=== PATIENT | male | born 1940 | race Caucasian/White ===

== ENCOUNTER 2024-08-07 12:13 | Outpatient (AMB) | payer OTHER, SELFPAY ==
--- OUTSIDE RECORDS SUMMARY | 2024-08-07 12:16 | XMS_ITS | Encounter Summary ---
Author Name [facility] ([place]) Organization [facility] [place]) Address [address] [place] [address] Care Team Providers Care Boat Carpenter Name Role Phone LENORA DEJESUS Primary Care Provider Unavailab le Insurance Providers: All historical and current Section Date Range: From patient's date of to the date document was created. This section includes the names of all active insurance providers for the patient. Insurance Provider Type of Coverage Plan Name Start of Policy Coverage End of Policy Coverage Group Number Member ID Insurance Provider's Telephone Number Policy Welsh's Name Patient's Relationship to Policy Welsh [facility] MEDICARE SUPPLEMEN [place] IND Jul 31, 2014 MEDICAR E SUPPLEM E [id number] [phone] FR GAMALIEL KAY PATIENT [facility] MEDICARE SUPPLEMEN [place] MEDIC ARE SUPP Jul 31, 2014 SUPP [id number] [phone] FR GAMALIEL KAY PATIENT MEDICARE (WNR) MEDICARE (M) PART A Jan 29, 2004 PART A [id number] [phone] FR GAMALIEL KAY PATIENT MEDICARE (WNR) MEDICARE (M) PART B Jan 29, 2004 PART B [id number] [phone] FR GAMALIEL KAY PATIENT [facility] (WNR) MEDICARE ADVANTAGE [facility] ([facility]) Jul 31, 2023 [id number] GAMALIEL MACHADO PATIENT [facility] (WNR) MEDICARE ADVANTAGE MCR (WNR) Jul 31, 2023 [id number] [phone] FR GAMALIEL KAY PATIENT Selected Encounter This section includes the information on record at MD for the Encounter. Date/Time Encounter Type Encounter Description Reason Pro vider Source Oct 24, 2023 03:45 PM Outpatient Encounter EVENT (HISTORICAL) IHE Encounter Template Text not used by MD Plan of Treatment: Future Appointments (+ 6 months) and Future Tests (+/- 45 days) The Plan of Treatment section includes future care activities for the patient from all MD treatmentfacilities. This section includes future appointments and future orders which are active, pending or scheduled. Future Appointments This section includes appointments that were scheduled to occur 6 months from the date of the Encounter, up to a maximum of 20 appointments. The data comes from all MD treatment facilities. Appointment Date/Time Appointment Type Appointme nt Facility Name Oct 26, 2023 01:30 PM AMBULATORY - NEUROLOGY [facility] [place] [facility] Nov 13, 2023 01:00 PM AMBULATORY - MEDICINE MD [facility] [place] [facility] December 11, 2023 10:30 AM AMBULATORY - MEDICINE MD [facility] [place] [facility] December 20, 2023 09:00 AM AMBULATORY - MEDICINE MD [facility] [place] [facility] December 20, 2023 02:00 PM AMBULATORY - MEDICINE [facility] ([facility]) Jan 08, 2024 10:30 AM AMBULATORY - MEDICINE MD [facility] [place] [facility] Jan 11, 2024 01:00 PM AMBULATORY - MEDICINE MD [facility] [place] [facility] Jan 30, 2024 01:00 PM AMBULATORY - MEDICINE MD [facility] [place] [facility] Mar 27, 2024 01:00 PM AMBULATORY - MEDICINE [facility] ([facility]) Apr 04, 2024 08:00 AM AMBULATORY - MEDICINE MD [facility] [place] [facility] Active, Pending, and Scheduled Orders This section includes a listing of several types of active, pending, and scheduled orders, including clinic medications orders, diagnostic test orders, procedure orders and consult orders; where the start date of the order is 45 days before the date of the Encounter or 45 days after the date of theEncounter. The data comes from all MD treatment facilities. Test Date/Time Test Type Test Details Facility Name 2023 01:37 PM Consult Order COMMUNITY CARE-NEUROLOGY Cons Parachute Repairer's Choice [facility] Radiology Reports: +/- 30 days of the encounter Radiology Reports For cases when an order for radiology services may have been completed prior to the date of the Encounter, the report list includes the Radiology Reports that were completed up to 30 days before dateof the Encounter. For cases when an order for radiology services may have been completed after the date of the Encounter, the report list also includes the Radiology Reports that were completed up to30 days after date of the Encounter. The data comes from all MD treatment facilities. Date/Time Radiology Report Provider Source Oct 11, 2023 12:[address] LUMBAR SPINE W/O CONT: MUKUL KAY [id number] -1940 M Exm Date: OCT 11, 2023@12:58 Req Phys: LENORA DEJESUS Pat Loc: CWM/GO/PACT 1 WH (Req'g Loc) Img Loc: NHM/CT Service: Unknown (Case [id number] COMPLETE) CT LUMBAR SPINE W/O CONT (CT Detailed) CPT:81821 Reason for Study: back pain Clinical History: radiating left leg Report Status: Verified Date Reported: OCT 12, 2023 Date Verified: OCT 12, 2023 Recreation Therapy Director E-Sig: Report: CT LUMBAR SPINE W/O CONT HISTORY: back pain COMPARISON: None TECHNIQUE: CT of the lumbar spine performed without contrast. Images were received by the MD National Teleradiology Program (NTP) for interpretation. RADIATION DOSE (mGy*cm): 1283.4 IV CONTRAST: Not administered. FINDINGS: There is diffuse osseous demineralization. There are 5 lumbar vertebra. 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 Mild to moderate levocurvature of the lumbar spine. Mild dextrocurvature at the thoracolumbar junction. There is a 1 cm left lateral listhesis of L3 with respect to L2. There is 1 mm retrolisthesis of L4 on L5. There is straightening of the lumbar lordosis. Mild probably chronic anterior compression deformity of T12. No evident acute displaced fracture. There are multilevel degenerative changes of the lumbar spine characterized by disc height loss, osteophytosis, degenerative endplate irregularity, disc bulge, and facet joint hypertrophy. Mild osseous spinal canal stenosis at L2-3. Mild osseous spinal canal stenosis at L3-4. A combination of osseous and soft tissue degenerative change probably results in severe spinal canal stenosis at L4-5. There is multilevel osseous neural foraminal stenosis which is most conspicuous at the right L3-4 and L4-5 where it is severe. Mild to moderate degenerative change of the sacroiliac joints. Unremarkable CT appearance of the paraspinal musculature. There are atherosclerotic vascular calcifications. There is colonic diverticulosis. Impression: 1. 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 This could be more definitively characterized with MRI. 2. Mild anterior compression deformity of T12, probably chronic. Correlate clinically. READING PHYSICIAN: Mir Nuñez -[id number] 10/12/2023 10:03 [facility] National Teleradiology Program [phone] (For Medical Practitioner Use Only) Attention Patients / Veterans: If you have questions or concerns about these test results, please contact your ordering provider or primary care team. Primary Diagnostic Code: SIGNIFICANT ABNORMALITY, ATTN NEEDED Primary Interpreting Staff: RADIOLOGY,OUTSIDE SERVICE, Staff Physician / RADIOLOGY,OUTSIDE SERVICE [facility]
--- OUTSIDE RECORDS SUMMARY | 2024-08-07 12:16 | XMS_ITS | Encounter Summary ---
Author Name [facility] Organization [facility] [place] Address [address] [place] [address] Care Team Providers Care Pulmonary Function Technician Name Role Phone LENORA DEJESUS Primary Care [...] Jul 31, 2014 MEDICAR E SUPPLEM E [id number] [phone] FR GAMALIEL KAY PATIENT [facility] MEDICARE SUPPLEMEN [place] MEDIC ARE SUPP Jul 31, 2014 SUPP [id number] [phone] FR GAMALIEL KAY PATIENT MEDICARE (WNR) MEDICARE (M) PART A Jan 29, 2004 PART A [id number] [phone] FR GAMALIEL KAY PATIENT MEDICARE (WNR) MEDICARE (M) PART B Jan 29, 2004 PART B [id number] [phone] FR GAMALIEL KAY PATIENT [facility] (WNR) MEDICARE ADVANTAGE [facility] ([facility]) Jul 31, 2023 [id number] [phone] FR GAMALIEL KAY PATIENT [facility] MCR (WNR) MEDICARE ADVANTAGE MCR (WNR) Jul 31, 2023 [id number] [phone] FR GAMALIEL KAY PATIENT Selected Encounter This section includes the information on record at [place] for the Encounter. Date/Time Encounter Type Encounter Description Reason Pro vider Source Aug 17, 2023 10:56 AM Outpatient Encounter ADMIN PAT ACTIVTIES (MASNONCT) IHE Encounter Template Text not used by [place] Plan of Treatment: Future Appointments (+ 6 months) and Future Tests (+/- 45 days) The Plan of Treatment section includes future care activities for the patient from all [place] treatmentfaunc healthities. This section includes future appointments and future orders which are active, pending or scheduled. Future Appointments This section includes appointments that were scheduled to occur 6 months from the date of the Encounter, up to a maximum of 20 appointments. The data comes from all [place] treatment facilities. Appointment Date/Time Appointment Type Appointme nt Facility Name Sep 19, 2023 01:30 PM AMBULATORY - MEDICINE [place] [facility] Sep 22, 2023 01:00 PM AMBULATORY - MEDICINE [facility] ([facility] Oct 03, 2023 11:30 AM AMBULATORY - MEDICINE [place] [facility] Oct 06, 2023 03:00 PM AMBULATORY - PSYCHIATRY [place] [facility] [place] Oct 10, 2023 02:00 PM AMBULATORY - MEDICINE [facility] ([facility]) Oct 11, 2023 01:00 PM AMBULATORY - NONE [place] [facility] [place] [facility] Oct 16, 2023 02:00 PM AMBULATORY - MEDICINE [place] [facility] Oct 24, 2023 11:30 AM AMBULATORY - MEDICINE [facility] Oct 26, 2023 01:30 PM AMBULATORY - NEUROLOGY [facility] Nov 13, 2023 01:00 PM AMBULATORY - MEDICINE [facility] December 11, 2023 10:30 AM AMBULATORY - MEDICINE [place] [facility] [place] [facility] December 20, 2023 09:00 AM AMBULATORY - MEDICINE [place] [facility] [place] [facility] December 20, 2023 02:00 PM AMBULATORY - MEDICINE [facility] ([facility]) Jan 08, 2024 10:30 AM AMBULATORY - MEDICINE [place] [facility] Jan 11, 2024 01:00 PM AMBULATORY - MEDICINE [place] [facility] Jan 30, 2024 01:00 PM [facility]UL[facility] Lab Results: +/- 30 days of the encounter This section includes the Chemistry and Hematology Lab Results on record with [place] for the patient. Radiology Reports and Pathology Reports are provided separately, in subsequent sections. Lab Results This section contains the Chemistry/Hematology Results that were resulted 30 days before or 30 daysafter the date of the Encounter. Date/Time Source Result Type Result - Unit Interpretation Reference Range Comment Sep 13, 2023 01:18 PM [place] ([facility]) VITAMIN B12 Specimen Type: SERUM No comment entered. Ordering Provider: FLYNN DEJESUS Report Released Date/Time: Sep 08, 2023 04:05 PM Reporting [facility] [address] Performing [facility]: [facility] [address] [address] VITAMIN B12 359 pg/mL 200-900 Sep 13, 2023 01:18 PM [place] ([facility]) VITAMIN D (25-OH) Specimen Type: SERUM No comment entered. Ordering Provider: FLYNN DEJESUS Report Released Date/Time: Sep 08, 2023 04:05 PM Reporting Lab[facility] [address] Performing Lab: [facility] [address] VITAMIN D (25-OH) 39 ng/mL 20-50 Sep 13, 2023 01:18 PM [place] ([facility]) MICROALBUMIN CREATININE RATIO PANEL Specimen Type: URINE No comment entered. Ordering Provider: FLYNN DEJESUS Report Released Date/Time: Sep 08, 2023 04:05 PM Reporting [facility] [address] [address] Performing Lab: [address] [address] MICROALBUMIN/C REATININE RATIO 16.2 mg/g 0-29.9 MICROALBUMIN,Q UANTITATIVE 2.8 mg/dL RR UNAVAIL CREATININE URINE 172.87 mg/dL Sep 13, 2023 01:18 PM [facility] ([facility]) URINALYSIS Specimen Type: URINE Comment: If Glucose = >500 and Ketones are positive, please alert the Physician. Ordering Provider: FLYNN DEJESUS Report Released Date/Time: Sep 08, 2023 04:05 PM Reporting Lab: [address] [address] Performing Lab: [address] [address] UA COLOR Yellow Yellow UA APPEARANCE Clear Clear UA GLUCOSE NEGATIVE mg/dL Negative UA KETONES NEGATIVE mg/dL Negative UA BLOOD NEGATIVE mg/dL Negative UA PROTEIN 20 mg/dL Negative UA NITRITE NEGATIVE mg/dL Negative UA BILIRUBIN NEGATIVE mg/dL Negative UA SPECIFIC GRAVITY 1.027 H 1.016-1.022 UA pH 5.5 5.0-9.0 UA UROBILINOGEN <2.0 mg/dL <2.0 UA LEUKOCYTE NEGATIVE Negative Sep 13, 2023 01:18 PM [place] ([facility]) HEMOGLOBIN A1C PANEL Specimen Type: BLOOD Comment: Values obtained from A1C measurements can vary. For atypical A1C assays, a reported value of 7.0 could actually be between 6.72 and 7.28 if measured by a reference method. A reported value of 9.0 could actually be between 8.73 and 9.27. Ref: http://www.ngs p.org/CAPdata. asp Ordering Provider: FLYNN DEJESUS Report Released Date/Time: Sep 08, 2023 04:05 PM Reporting Lab: [address] [address] Performing Lab: [address] [address] HEMOGLOBIN A1C 6.6 H 4.0-5.6 Sep 13, 2023 01:18 PM [place] ([facility]) TSH Specimen Type: SERUM No comment entered. Ordering Provider: FLYNN DEJESUS Report Released Date/Time: Sep 08, 2023 04:05 PM Reporting Lab: [address] [address] Performing Lab: [address] [address] TSH 1.81 u[IU]/mL 0.35-5.00 Sep 13, 2023 01:18 PM [place] ([facility]) LIVER FUNCTION Specimen Type: SERUM No comment entered. Ordering Provider: FLYNN DEJESUS Report Released Date/Time: Sep 08, 2023 04:05 PM Reporting Lab: [address] [address] Performing Lab: [address] [address] PROTEIN,TOTAL 7.1 g/dL 6.0-8.3 ALBUMIN 3.8 g/dL 3.5-5.0 ALKALINE PHOSPHATASE 82 U/L 40-150 AST 16 U/L 5-34 ALT 6 U/L BILIRUBIN, TOTAL 0.8 mg/dL 0.2-1.2 Sep 13, 2023 01:18 PM [place] ([facility]) BASIC METABOLIC PANEL (non-fasting) Specimen Type: SERUM No comment entered. Ordering Provider: FLYNN DEJESUS Report Released Date/Time: Sep 08, 2023 04:05 PM Reporting Lab: [address] [address] Performing Lab: [address] [address] UREA NITROGEN 23 mg/dL 7-25 GLUCOSE 120 mg/dL H 65-100 SODIUM 138 mmol/L 135-145 POTASSIUM 3.9 mmol/L 3.5-5.0 CHLORIDE 104 mmol/L 100-110 CO2 25 meq/L 20-30 CREATININE, Serum 1.15 mg/dL 0.50-1.40 eGFR(CKD-EPI 2020) 64 mL/min >60 Sep 13, 2023 01:18 PM [place] ([facility]) LIPID PANEL, NON FASTING Specimen Type: SERUM No comment entered. Ordering Provider: FLYNN DEJESUS Report Released Date/Time: Sep 08, 2023 04:05 PM Reporting Lab: [address] [address] Performing Lab: [address] [address] CHOLESTEROL 181 mg/dL TRIGLYCERIDE 142 mg/dL 0-150 LDL calculated 113 mg/dL 0-129 CHOL/HDL 4.5 HDL CHOLESTEROL 40 mg/dL 40-60 Sep 13, 2023 01:18 PM [place] ([facility]) CBC AND DIFF (AUTO) Specimen Type: BLOOD No comment entered. Ordering Provider: FLYNN DEJESUS Report Released Date/Time: Sep 08, 2023 04:05 PM Reporting Lab: [address] [address] Performing Lab: [address] [address] WBC 8.48 10*3/uL 4.50-11.00 RBC 5.71 10*6/uL H 4.23-5.66 HGB 16.6 g/dL 12.8-17 HCT 49.8 39.2-50.4 MCV 87.2 fL 82-99 MCHC 33.3 g/dL 30.8-35.1 PLT 242 10*3/uL 140-360 RDW-CV 13.7 12.0-16.0 [place], Abs 0.73 10*3/uL 0.30-1.10 MCH 29.1 pg 26.2-32.6 Neut % 71.1 43.7-75.8 Lymph % 18.8 14.0-42.3 [place] % 8.6 5.1-13.7 Eos % 0.6 0.4-6.8 Baso % 0.7 0.1-2.0 Neut, Abs 6.03 10*3/uL 2.20-7.60 Lymph, Abs 1.59 10*3/uL 1.00-3.20 Eos, Abs 0.05 10*3/uL 0.03-0.44 Baso, Abs 0.06 10*3/uL 0.01-0.13 Immature Gran % 0.2 0.0-0.7 Immature Gran, Abs 0.02 10*3/uL 0.00-0.06 Encounter Notes: All associated encounter notes This section contains the clinical notes associated to the Encounter. Date/Time Encounter Note(s) Provider Source Aug 17, 2023 10:56 AM ADMINISTRATIVE NOTE: LOCAL TITLE: CCC: SCHEDULING ADMINISTRATION STANDARD TITLE: ADMINISTRATIVE NOTE DATE OF NOTE: AUG 17, 2023@10:56:28 ENTRY DATE: AUG 17, 2023@10:56:28 AUTHOR: TONE DON COSIGNER: URGENCY: STATUS: COMPLETED Patient Demographics Patient Name: MUKUL KAY Patient Primary Phone: [phone] Patient Primary Address: [address] [place] [address] Patient : 1940 Patient Age: 82 Call Back Number: [phone] Caller/Recipient Relation to Patient: Self Administrative Administrative Note Reason: Medication Renewal Medications Refill/Renewal Request: Rx # - Medication Name - Dosage - SIG - Number of Refills - Facility - Status [id number] - APIXABAN 5MG TAB - Medication - 1 TABLET - TAKE ONE TABLET BY MOUTH TWICE DAILY - 0 - [facility] - 631 - /kasia/ TONE DON VISN 1 [facility] AMSA Signed: 08/17/2023 10:56 Receipt Acknowledged By: 08/17/2023 11:09 /es/ TODD DANIELS RN REGISTERED NURSE 08/18/2023 09:11 /es/ LENORA DEJESUS MD PHYSICIAN TONE DON [facility]
--- OUTSIDE RECORDS SUMMARY | 2024-08-07 12:16 | XMS_ITS | Encounter Summary ---
Author Name [facility] [place] [facility] [place] [facility] [place] Address [address] [place] [address] Care Team Providers Care Technical Instructor Name Role Phone LENORA DEJESUS Primary Care [...] Jul 31, 2014 MEDICAR E SUPPLEM E [id number] FR GAMALIEL KAY PATIENT [facility] MEDICARE SUPPLEMEN [place] MEDIC ARE SUPP Jul 31, 2014 SUPP [id number] [phone] FR GAMALIEL KAY PATIENT MEDICARE (WNR) MEDICARE (M) PART A Jan 29, 2004 PART A [id number] [phone] FR GAMALIEL KAY PATIENT MEDICARE (WNR) MEDICARE (M) PART B Jan 29, 2004 PART B [id number] [phone] FR GAMALIEL KAY PATIENT [facility] (WNR) MEDICARE ADVANTAGE [facility] ([facility]) Jul 31, 2023 [id number] [phone] FR GAMALIEL KAY PATIENT [facility] MCR (WNR) MEDICARE ADVANTAGE MCR (WNR) Jul 31, 2023 [id number] [phone] FR GAMALIEL KAY PATIENT Selected Encounter This section includes the information on record at [place] for the Encounter. Date/Time Encounter Type Encounter Description Reason Provider Source Oct 26, 2023 01:30 PM OFFICE O/P EST MOD 30 MIN NEUROLOGY ICD-10-CM G20.B1 Parkinson's dis with dyskinesia, 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 fluctuations CHANDRIKA LIN [facility] Encounter Template Text not used by [place] Assessments - Encounter Diagnoses This section includes the primary and secondary diagnoses documented for the Encounter. Date/Time Primary/Secondary Diagnosis Diagnosis Name Provider Source 2023 01:30 PM PRIMARY Parkinson's dis with dyskinesia, 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 fluctuations CHANDRIKA LIN [facility] [place] [facility] Plan of Treatment: Future Appointments (+ 6 months) and Future Tests (+/- 45 days) The Plan of Treatment section includes future care activities for the patient from all [place] [facility]. This section includes future appointments and future orders which are active, pending or scheduled. Future Appointments This section includes appointments that were scheduled to occur 6 months from the date of the Encounter, up to a maximum of 20 appointments. The data comes from all [place] treatment facilities. Appointment Date/Time Appointment Type Appointme nt Facility Name Nov 13, 2023 01:00 PM AMBULATORY - MEDICINE [facility] [place] [facility] December 11, 2023 10:30 AM [place] [place]ICINE [place] [facility] [place] [facility] December 20, 2023 09:00 AM [place] [facility] [place] [facility] December 20, 2023 02:00 PM AMBULATORY - MEDICINE [facility] Jan 08, 2024 10:30 AM [place]INE [place] [facility] [place] [facility] Jan 11, 2024 01:00 PM [place] [facility] [place] [facility] Jan 30, 2024 01:00 PM AMBULATORY - MEDICINE [facility] [place] [facility] Mar 27, 2024 01:00 PM AMBULATORY - MEDICINE [facility] ([facility]) Apr 04, 2024 08:00 AM AMBULATORY - MEDICINE [facility] [place] [facility] Active, Pending, and Scheduled Orders This section includes a listing of several types of active, pending, and scheduled orders, including clinic medications orders, diagnostic test orders, procedure orders and consult orders; where the start date of the order is 45 days before the date of the Encounter or 45 days after the date of theEncounter. The data comes from all [place] treatment facilities. Test Date/Time Test Type Test Details Facility Name 2023 01:37 PM Consult Order COMMUNITY CARE-NEUROLOGY Cons Pediatric Psychologist's Choice [facility] [place] [facility] Vital Signs: All taken on the encounter date This section contains inpatient and outpatient Vital Signs collected on the date of the Encounter. Date/Time Temperature Pulse Blood Pressure Respiratory Rate SP02 Pain Height Weight Body Mass Index Source Oct 26, 2023 03:04 PM 98 92 100/70 18 97 1 [facility] [place] [facility] Radiology Reports: +/- 30 days of the [...] the Encounter. The data comes from all [place] treatment facilities. Date/Time Radiology Report Provider Source Oct 11, 2023 12:[address] LUMBAR SPINE W/O CONT: MUKUL KAY MIKE [id number] -[id number] M Exm Date: OCT 11, 2023@12:58 Req Phys: LENORA DEJESUS Pat Loc: C[facility]/GO/PACT 1 WH (Req'g Loc) Img Loc: NHM/CT Service: Unknown (Case [id number] COMPLETE) CT LUMBAR SPINE W/O CONT (CT Detailed) CPT:45265 Reason for Study: back pain Clinical History: radiating left leg Report Status: Verified Date Reported: OCT 12, 2023 Date Verified: OCT 12, 2023 Eye Technician E-Sig: Report: CT LUMBAR SPINE W/O CONT HISTORY: back pain COMPARISON: None TECHNIQUE: CT of the lumbar spine performed without contrast. Images were received by the [place] [facility] ([facility]) for interpretation. RADIATION [...] chronic. Correlate clinically. READING PHYSICIAN: Mir Nuñez -[phone] 10/12/2023 10:03 PDT [facility] National Teleradiology Program [phone] (For Medical Practitioner Use Only) Attention Patients / Veterans: If you have questions or concerns about these test results, please contact your ordering provider or primary care team. Primary Diagnostic Code: SIGNIFICANT ABNORMALITY, ATTN NEEDED Primary Interpreting Staff: RADIOLOGY,OUTSIDE SERVICE, Staff Physician / RADIOLOGY,OUTSIDE SERVICE [place] [facility] [place] [facility] Encounter Notes: All associated encounter notes This section contains the clinical notes associated to the Encounter. Date/Time Encounter Note(s) Provider Source Oct 26, 2023 02:04 PM NEUROLOGY OUTPATIE NT NOTE: LOCAL TITLE: NEUROLOGY CLINIC NOTE STANDARD TITLE: NEUROLOGY OUTPATIENT NOTE DATE OF NOTE: OCT 26, 2023@14:04 ENTRY DATE: OCT 26, 2023@14:04:24 AUTHOR: CHANRDIKA LIN COSIGNER: URGENCY: STATUS: COMPLETED Chief Complaint: Parkinsons disease Interval Hx Sep Pt is accompanied by son. They give generally congruent hx. Pt reports that he continues to experience some tremors, though they are generally well-controlled on his sinemet. He often forgets his 3pm dose, and then takes his last dose just before bed. There are no adverse effects to the sinemet on taking, no dyskinesias, and no on/off phenomenon, even when the sinemet does wear off when he forgets to take a dose. He denies any falls or injuries. He experiences occasional problems with swallowing solids, which improves if he follows a bit with a swallow of water. He denies any aspiration or choking. He has 'constant' constipation, which he has been addressing with milk of magnesia and stool softener. He denies any cognitive impairment, and says he continues to be able to perform basic ADLs, including dressing self, preparing a meal for himself, and other activities. some mod/mod tremors and parkinsonism comm care Pt o/w denies any new issues, illness, injuries, hospitalizations, or concerns. NEUROLOGIC EXAM: Gen: WD WN WM in NAD, appropriate affect, eye contact and social interaction. MS: AAO to Person/Place/Situation Able to maintain attention to conversation and follow directions on exam without distractability, impersistence, or perseveration. Fluent language and intact comprehension, without any paraphasic errors. Normal prosody and word variability/richness. Strength in both UE intact. Mod amp/mod freq tremor at rest and with extension. Mild parkinsonism on exam. Mild micro>bradykinesia. Vitals Enter at: Oct 26, 2023@15:04:09 BP: 100/70 P: 92 R: 18 T: 98 206.4 lb [93.62 kg] (10/10/2023 14:13) Assessment/Plan: 82 y/o M with parkinsons disease reasonably well-controlled with use of sinemet, when he remembers to take. No new falls or other motor issues. Pt to call if new issues. Chandrika Lin MD Staff Neurologist [facility] ~30 mins spent on exam, assessment, counseling, and coordination [ X ] Management of Neurologic Condition was reassessed, taking into account pt's complex other medical issues and medications. [ X ] ~50% of exam was spent on discussion and education or coordination Medication Rec per Um Rn Nursing note on Sep@10:14. NO DISCREPANCIES FOUND other than those listed in note. The patient's medication list/medication history to include Local Active VA Prescriptions, Remote Active VA Prescriptions, Non-VA medications, Recently VA Prescriptions (90-180 days), Recently Discontinued VA Prescriptions (90-180 days), and Pending Medication Orders where relevant (e.g., patient is seen by multiple providers in the same day) was compared with CPRS and reviewed with the patient/caregiver and reconciled. Any changes in medications and any medications prescribed by this provider discontinued are documented in this note. Medications not prescribed by this provider will be addressed by pt's PCM or appropriate specialty provider. Discussed risks and possible benefits and mechanism of action of medications prescribed. Pt indicated understanding of the risks of medications, and all questions were answered to pt's satisfaction /es/ CHANDRIKA LIN MD PHYSICIAN Signed: 2023 13:30 CHANDRIKA LIN [place] [facility]
--- OUTSIDE RECORDS SUMMARY | 2024-08-07 12:16 | XMS_ITS | Encounter Summary ---
Author Name [facility] [place] [facility] [place] Address [address] [place] [address] Care Team Providers Care Station Manager Name Role Phone LENORA DEJESUS Primary Care [...] Jul 31, 2014 MEDICAR E SUPPLEM E [id number] [phone] FR GAMALIEL KAY PATIENT [facility] MEDICARE SUPPLEMEN [facility] MEDIC ARE SUPP Jul 31, 2014 SUPP [id number] [phone] FR GAMALIEL KAY PATIENT MEDICARE (WNR) MEDICARE (M) PART A Jan 29, 2004 PART A [id number] [phone] FR GAMALIEL KAY PATIENT MEDICARE (WNR) MEDICARE (M) PART B Jan 29, 2004 PART B [id number] [phone] FR GAMALIEL KAY PATIENT [facility] (WNR) MEDICARE ADVANTAGE [facility] [place] Jul 31, 2023 [id number] [phone] FR GAMALIEL KAY PATIENT [facility] MCR (WNR) MEDICARE ADVANTAGE [facility] (WNR) Jul 31, 2023 [id number] [phone] FR GAMALIEL KAY PATIENT Selected Encounter This section includes the information on record at [place] for the Encounter. Date/Time Encounter Type Encounter Description Reason Provider Source Oct 24, 2023 11:30 AM PRO PHONE CALL 11-20 MIN TELEPHONE PRIMARY CARE ICD-10-CM E11.9 Type 2 diabetes mellitus without complications RITA SANDERSON [facility] Encounter Template Text not used by [place] Assessments - Encounter Diagnoses This section includes the primary and secondary diagnoses documented for the Encounter. Date/Time Primary/Secondary Diagnosis Diagnosis Name Provider Source Oct 24, 2023 11:30 AM PRIMARY Type 2 diabetes mellitus without complications RITA SANDERSON [place] Plan of Treatment: Future Appointments (+ 6 months) and Future Tests (+/- 45 days) The Plan of Treatment section includes future care activities for the patient from all [place] treatmentfacilities. This section includes future appointments and future orders which are active, pending or scheduled. Future Appointments This section includes appointments that were scheduled to occur 6 months from the date of the Encounter, up to a maximum of 20 appointments. The data comes from all [place] treatment facilities. Appointment Date/Time Appointment Type Appointme nt Facility Name Oct 26, 2023 01:30 PM AMBULATORY [place] [facility] [facility] Nov 13, 2023 01:00 PM AM[place]ULATORY [place] [facility] [place] [facility] December 11, 2023 10:30 AM [place]ORY [place] [facility] [place] [facility] December 20, 2023 09:00 AM [place]ORY [place] [facility] [place] [facility] December 20, 2023 02:00 PM AMBULATORY - MEDICINE [facility] Jan 08, 2024 10:30 AM [place]ORY [place] [facility] [place] [facility] Jan 11, 2024 01:00 PM [place] [facility] [place] [facility] Jan 30, 2024 01:00 PM [place]ORY [place] [facility] [place] [facility] Mar 27, 2024 01:00 PM AMBULATORY - MEDICINE [facility] ([facility] Apr 04, 2024 08:00 AM AM[facility]ULATORY [facility]ICINE [facility] Active, Pending, and Scheduled Orders This section includes a listing of several types of active, pending, and scheduled orders, including clinic medications orders, diagnostic test orders, procedure orders and consult orders; where the start date of the order is 45 days before the date of the Encounter or 45 days after the date of theEncounter. The data comes from all [place] treatment facilities. Test Date/Time Test Type Test Details Facility Name 2023 01:37 PM Consult Order COMM[facility]ITY [facility]-NEUROLOGY Cons General [facility] Radiology Reports: +/- 30 days of [...] the Encounter. The data comes from all [place] treatment facilities. Date/Time Radiology Report Provider Source Oct 11, 2023 12:[address] LUMBAR SPINE W/O CONT: MUKUL KAY [id number] -[id number] M Exm Date: OCT 11, 2023@12:58 Req Phys: LENORA DEJESUS Pat Loc: CWM/GO/PACT 1 WH (Req'g Loc) Img Loc: NHM/CT Service: Unknown (Case [id number] COMPLETE) CT LUMBAR SPINE W/O CONT (CT Detailed) CPT:18170 Reason for Study: back pain Clinical History: radiating left leg Report Status: Verified Date Reported: OCT 12, 2023 Date Verified: OCT 12, 2023 Social Service Director E-Sig: Report: CT LUMBAR SPINE W/O CONT HISTORY: back pain COMPARISON: None TECHNIQUE: CT of the lumbar spine performed without contrast. Images were received by the [place] National [facility] Program (NTP) for interpretation. RADIATION [...] chronic. Correlate clinically. READING PHYSICIAN: Mir Nuñez -[phone] 10/12/2023 10:03 [facility] National Teleradiology Program [phone] (For Medical Practitioner Use Only) Attention Patients / Veterans: If you have questions or concerns about these test results, please contact your ordering provider or primary care team. Primary Diagnostic Code: SIGNIFICANT ABNORMALITY, ATTN NEEDED Primary Interpreting Staff: RADIOLOGY,OUTSIDE SERVICE, Staff Physician / RADIOLOGY,OUTSIDE SERVICE [place] [facility] Encounter Notes: All associated encounter notes This section contains the clinical notes associated to the Encounter. Date/Time Encounter Note(s) Provider Source Oct 24, 2023 04:12 PM ADDENDUM: LOCAL TITLE: Addendum STANDARD TITLE: ADDENDUM DATE OF NOTE: OCT 24, 2023@16:12:10 ENTRY DATE: OCT 24, 2023@16:12:11 AUTHOR: RITA SANDERSON EXP COSIGNER: URGENCY: STATUS: COMPLETED AMSA, please schedule CWM/SO/PHARM/PACT 3 TEL on 11/06/23 at 11:30. Thank you. /kasia/ Rita Sanderson PharmD Clinical Pharmacist Practitioner Signed: 10/24/2023 16:12 Receipt Acknowledged By: 10/25/2023 10:36 /es/ PRINCE JAIN [employer]TER --- Original Document --- 10/24/23 PHARMACY CLINIC NOTE: Briefly, MUKUL KAY is a 82 year old WHITE MALE referred [facility] practitioner [facility] for comprehensive medication management. Patient's identity was confirmed using at least two indicators. Subjective: experienced diarrhea after first dose of metformin and stopped it. He resumed his glimepiride. He is considering using daily christi tea (Holy Basil) as a beverage and potential anti-inflammatory, but he asks about potential interactions. CURRENT DIABETES MEDICATIONS: - Glimepiride 2mg once daily - started after stopping metformin PREVIOUS DIABETES MEDICATIONS: - Metformin - caused severe diarrhea the evening that he took it, so he stopped Medication Adherence: Rarely misses doses Tobacco: None Alcohol: Occasionally has a beer (once every 2 weeks) Marijuana/Illicit Drugs: Received CBD, but he decided not to take d/t concern for drug interactions Typical Diet: States it has been consistent B: Eggs & homefries w/ juice or coffee; L: [place] takeout D: Chicken with veggies, sweet potatoes; sometimes pork or steak Snacks: corn chips; pitted dried dates; dried prunes Drinks: Juice, coffee. Exercise/Activity: -Activities: Rarely, uses a walker to move around -Minutes/week spent doing moderate intensity or greater: Minimal SMBG: Not checking Hypoglycemia: No reported issues lately Objectives: Vitals SVSO - Vital Select Outpat. Measurement DT TEMP RESP PULSE POx BP F(C) (L/MIN)(%) 10/10/2023 14:13 97.8(36.6) 20 91 98 135/78 Labs: HEMOGLOBIN A1C TREND Collection DT Spec HGBA1c 09/13/2023 13:18 BLOOD 6.6 H 05/12/2023 08:42 BLOOD 6.4 H 11/23/2022 13:38 BLOOD 6.6 H 04/13/2022 13:19 BLOOD 6.0 H 10/26/2021 11:03 BLOOD 6.5 H BMP (NONFASTING) Collection DT Specimen Test Name Result Units Ref Range 09/13/2023 13:18 SERUM UREA NITROGEN 23 mg/dL 7 - 25 09/13/2023 13:18 SERUM GLUCOSE 120 H mg/dL 65 - 100 09/13/2023 13:18 SERUM SODIUM 138 mmol/L 135 - 145 09/13/2023 13:18 SERUM POTASSIUM 3.9 mmol/L 3.5 - 5.0 09/13/2023 13:18 SERUM CHLORIDE 104 mmol/L 100 - 110 09/13/2023 13:18 SERUM CO2 25 mEq/L 20 - 30 09/13/2023 13:18 SERUM CREATININE, Serum 1.15 mg/dL 0.50 - 1.40 09/13/2023 13:18 SERUM eGFR(CKD-EPI 2020 64 mL/min Ref: >=60 CBC TREND Collection DT Spec WBC RBC HGB HCT MCV MCH PLT 09/13/2023 13:18 BLOOD 8.48 5.71 H 16.6 49.8 87.2 29.1 242 05/12/2023 08:42 BLOOD 8.06 5.48 16.2 49.2 89.8 29.6 248 11/23/2022 13:38 BLOOD 9.56 5.50 16.2 48.7 88.5 29.5 238 04/13/2022 13:19 BLOOD 7.46 5.28 15.2 45.4 86.0 28.8 227 10/26/2021 11:03 BLOOD 10.14 5.47 16.3 49.1 89.8 29.8 294 LIVER PANEL TREND Collection DT Spec AST ALT T BILI ALK MARLENY T. PROT ALBUMIN 09/13/2023 13:18 SERUM 16 6 0.8 82 7.1 3.8 05/12/2023 08:42 SERUM 16 18 comment 81 7.1 3.8 11/23/2022 13:38 SERUM 16 18 1.0 77 7.0 3.9 04/13/2022 13:19 SERUM 16 <6 0.9 81 6.8 3.7 10/26/2021 11:03 SERUM 14 7 0.7 79 6.8 3.6 LIPID PANEL TREND Collection DT Spec CHOL HDL CHO/HDL LDL-c TRIG 09/13/2023 13:18 SERUM 181 40 4.5 113 142 05/12/2023 08:42 SERUM 170 43 4.0 108 97 11/23/2022 13:38 SERUM 190 37 L 5.1 128 124 04/13/2022 13:19 SERUM 180 40 4.5 124 79 10/26/2021 11:03 SERUM 173 37 L 4.7 116 99 THYROID PANEL Collection DT Specimen Test Name Result Units Ref Range 09/13/2023 13:18 SERUM TSH 1.81 uIU/mL 0.35 - 5.00 VITAMIN D 25-OH Collection DT Specimen Test Name Result Units Ref Range 09/13/2023 13:18 SERUM VITAMIN D (25-OH) 39 ng/mL 20 - 50 Medications: Active and Recently Outpatient Medications (including Supplies): Active Outpatient Medications Status 1) APIXABAN 5MG TAB TAKE ONE TABLET BY MOUTH TWICE DAILY ACTIVE 2) CARBIDOPA 25/LEVODOPA 100MG TAB TAKE 1 TABLET BY ACTIVE MOUTH THREE TIMES A DAY FOR 7 DAYS, THEN TAKE 2 TABLETS THREE TIMES A DAY FOR PARKINSON'S DISEASE 3) FLUTICASONE PROP 50MCG 120D NASAL INHL INSTILL 2 ACTIVE SPRAYS INTO EACH NOSTRIL ONCE DAILY 4) FUROSEMIDE 20MG TAB TAKE ONE TABLET BY MOUTH ONCE ACTIVE DAILY TO REMOVE FLUID/CONTROL BLOOD PRESSURE 5) KETOCONAZOLE 2% SHAMPOO SHAMPOO SMALL AMOUNT ACTIVE TOPICALLY TWICE A WEEK NEEDED APPLY FOR 8 WEEKS, THEN NEEDED 6) LIDOCAINE 5% PATCH APPLY 1 PATCH TOPICALLY ONCE DAILY ACTIVE NEEDED FOR NERVE PAIN (LEAVE PATCH ON FOR 12 HOURS, THEN REMOVE PATCH) 7) METFORMIN HCL 500MG 24HR SA TAB TAKE ONE TABLET BY ACTIVE MOUTH ONCE DAILY FOR 1 WEEK, THEN TAKE TWO TABLETS ONCE DAILY FOR TYPE 2 DIABETES MELLITUS 8) METOPROLOL TARTRATE 50MG TAB TAKE ONE TABLET BY MOUTH ACTIVE TWICE DAILY FOR BLOOD PRESSURE/HEART Remote Medications: No Active Remote Medications for this patient Allergy Assessment: LISINOPRIL Assessment: DIABETES Diabetes control is at goal, did not tolerate metformin. We discussed using alogliptin instead, which he is agreeable to trying. Will check in at 2 week point to assess tolerability and then likely monitor A1c to assure he maintains control of DM. Hgb A1c Goal Fasting/Preprandial BG Goal Bedtime BG Goal <7-7.5% 80-130 mg/dL 80-180 mg/dL DRUG-DRUG INTERACTION -Reviewed drug interactions and side effects of mechelle basil, using NatMeds database, including potential interactions with anticoagulant medications and diabetes medications. 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 The was provided the opportunity express questions or concerns, and the plan was adjusted as needed to address these concerns. -Reviewed with [place] any new medications, changes to the medication list, education, and plan from today's visit. Patient (and/or caregiver) verbalized understanding of the plan, including possible known risks and benefits, and had no additional questions. RTC: 11/07/23 at 11:30 (to assess tolerability of medication) Time spent with patient: 30 minutes PharmD tool: PBM PharmD Pharmacotherapy Rem V12: PHARMACIST INTERVENTIONS: TYPE 2 DIABETES MELLITUS Medication Intervention(s) Discontinue and/or change to different medication Discontinue and/or change to different medication due to other reason Initiate new medication Identify drug interaction Medication reconciliation (changes to active VA and non-VA medication lists to reconcile differences) No changes to medication lists made (medication review completed, no discrepancies identified) Prevent or manage an adverse drug reaction or event /es/ Rita Sanderson PharmD Clinical Pharmacist Practitioner Signed: 10/24/2023 16:11 RITA SANDERSON [place] Oct 24, 2023 08:45 AM PHARMACY OUTPATIEN T NOTE: LOCAL TITLE: PHARMACY CLINIC NOTE STANDARD TITLE: PHARMACY OUTPATIENT NOTE DATE OF NOTE: OCT 24, 2023@08:45 ENTRY DATE: OCT 24, 2023@08:45:57 AUTHOR: RITA SANDERSON EXP COSIGNER: URGENCY: STATUS: COMPLETED PHARMACY CLINIC NOTE Has ADDENDA Briefly, MUKUL KAY is a 82 year old WHITE MALE referred to [facility] practitioner [facility] for comprehensive medication management. Patient's identity was confirmed using at least two indicators. Subjective: [place] experienced diarrhea after first dose of metformin and stopped it. He resumed his glimepiride. He is considering using daily christi tea (Holy Basil) as a beverage and potential anti-inflammatory, but he asks about potential interactions. CURRENT DIABETES MEDICATIONS: - Glimepiride 2mg once daily - started after stopping metformin PREVIOUS DIABETES MEDICATIONS: - Metformin - caused severe diarrhea the evening that he took it, so he stopped Medication Adherence: Rarely misses doses Tobacco: None Alcohol: Occasionally has a beer (once every 2 weeks) Marijuana/Illicit Drugs: Received CBD, but he decided not to take d/t concern for drug interactions Typical Diet: States it has been consistent B: Eggs & homefries w/ juice or coffee; L: [place] takeout D: Chicken with veggies, sweet potatoes; sometimes pork or steak Snacks: corn chips; pitted dried dates; dried prunes Drinks: Juice, coffee. Exercise/Activity: -Activities: Rarely, uses a walker to move around -Minutes/week spent doing moderate intensity or greater: Minimal SMBG: Not checking Hypoglycemia: No reported issues lately Objectives: Vitals SVSO - Vital Select Outpat. Measurement DT TEMP RESP PULSE POx BP F(C) (L/MIN)(%) 10/10/2023 14:13 97.8(36.6) 20 91 98 135/78 Labs: HEMOGLOBIN A1C TREND Collection DT Spec HGBA1c 09/13/2023 13:18 BLOOD 6.6 H 05/12/2023 08:42 BLOOD 6.4 H 11/23/2022 13:38 BLOOD 6.6 H 04/13/2022 13:19 BLOOD 6.0 H 10/26/2021 11:03 BLOOD 6.5 H BMP (NONFASTING) Collection DT Specimen Test Name Result Units Ref Range 09/13/2023 13:18 SERUM UREA NITROGEN 23 mg/dL 7 - 25 09/13/2023 13:18 SERUM GLUCOSE 120 H mg/dL 65 - 100 09/13/2023 13:18 SERUM SODIUM 138 mmol/L 135 - 145 09/13/2023 13:18 SERUM POTASSIUM 3.9 mmol/L 3.5 - 5.0 09/13/2023 13:18 SERUM CHLORIDE 104 mmol/L 100 - 110 09/13/2023 13:18 SERUM CO2 25 mEq/L 20 - 30 09/13/2023 13:18 SERUM CREATININE, Serum 1.15 mg/dL 0.50 - 1.40 09/13/2023 13:18 SERUM eGFR(CKD-EPI 2020 64 mL/min Ref: >=60 CBC TREND Collection DT Spec WBC RBC HGB HCT MCV MCH PLT 09/13/2023 13:18 BLOOD 8.48 5.71 H 16.6 49.8 87.2 29.1 242 05/12/2023 08:42 BLOOD 8.06 5.48 16.2 49.2 89.8 29.6 248 11/23/2022 13:38 BLOOD 9.56 5.50 16.2 48.7 88.5 29.5 238 04/13/2022 13:19 BLOOD 7.46 5.28 15.2 45.4 86.0 28.8 227 10/26/2021 11:03 BLOOD 10.14 5.47 16.3 49.1 89.8 29.8 294 LIVER PANEL TREND Collection DT Spec AST ALT T BILI ALK MARLENY T. PROT ALBUMIN 09/13/2023 13:18 SERUM 16 6 0.8 82 7.1 3.8 05/12/2023 08:42 SERUM 16 18 comment 81 7.1 3.8 11/23/2022 13:38 SERUM 16 18 1.0 77 7.0 3.9 04/13/2022 13:19 SERUM 16 <6 0.9 81 6.8 3.7 10/26/2021 11:03 SERUM 14 7 0.7 79 6.8 3.6 LIPID PANEL TREND Collection DT Spec CHOL HDL CHO/HDL LDL-c TRIG 09/13/2023 13:18 SERUM 181 40 4.5 113 142 05/12/2023 08:42 SERUM 170 43 4.0 108 97 11/23/2022 13:38 SERUM 190 37 L 5.1 128 124 04/13/2022 13:19 SERUM 180 40 4.5 124 79 10/26/2021 11:03 SERUM 173 37 L 4.7 116 99 THYROID PANEL Collection DT Specimen Test Name Result Units Ref Range 09/13/2023 13:18 SERUM TSH 1.81 uIU/mL 0.35 - 5.00 VITAMIN D 25-OH Collection DT Specimen Test Name Result Units Ref Range 09/13/2023 13:18 SERUM VITAMIN D (25-OH) 39 ng/mL 20 - 50 Medications: Active and Recently Outpatient Medications (including Supplies): Active Outpatient Medications Status 1) APIXABAN 5MG TAB TAKE ONE TABLET BY MOUTH TWICE DAILY ACTIVE 2) CARBIDOPA 25/LEVODOPA 100MG TAB TAKE 1 TABLET BY ACTIVE MOUTH THREE TIMES A DAY FOR 7 DAYS, THEN TAKE 2 TABLETS THREE TIMES A DAY FOR PARKINSON'S DISEASE 3) FLUTICASONE PROP 50MCG 120D NASAL INHL INSTILL 2 ACTIVE SPRAYS INTO EACH NOSTRIL ONCE DAILY 4) FUROSEMIDE 20MG TAB TAKE ONE TABLET BY MOUTH ONCE ACTIVE DAILY TO REMOVE FLUID/CONTROL BLOOD PRESSURE 5) KETOCONAZOLE 2% SHAMPOO SHAMPOO SMALL AMOUNT ACTIVE TOPICALLY TWICE A WEEK NEEDED APPLY FOR 8 WEEKS, THEN NEEDED 6) LIDOCAINE 5% PATCH APPLY 1 PATCH TOPICALLY ONCE DAILY ACTIVE NEEDED FOR NERVE PAIN (LEAVE PATCH ON FOR 12 HOURS, THEN REMOVE PATCH) 7) METFORMIN HCL 500MG 24HR SA TAB TAKE ONE TABLET BY ACTIVE MOUTH ONCE DAILY FOR 1 WEEK, THEN TAKE TWO TABLETS ONCE DAILY FOR TYPE 2 DIABETES MELLITUS 8) METOPROLOL TARTRATE 50MG TAB TAKE ONE TABLET BY MOUTH ACTIVE TWICE DAILY FOR BLOOD PRESSURE/HEART Remote Medications: No Active Remote Medications for this patient Allergy Assessment: LISINOPRIL Assessment: DIABETES Diabetes control is at goal, did not tolerate metformin. We discussed using alogliptin instead, which he is agreeable to trying. Will check in at 2 week point to assess tolerability and then likely monitor A1c to assure he maintains control of DM. Hgb A1c Goal Fasting/Preprandial BG Goal Bedtime BG Goal <7-7.5% 80-130 mg/dL 80-180 mg/dL DRUG-DRUG INTERACTION -Reviewed drug interactions and side effects of mechelle jalloh, using NatMeds database, including potential interactions with anticoagulant medications and diabetes medications. 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 The was provided the opportunity express questions or concerns, and the plan was adjusted as needed to address these concerns. -Reviewed with any new medications, changes to the medication list, education, and plan from today's visit. Patient (and/or caregiver) verbalized understanding of the plan, including possible known risks and benefits, and had no additional questions. RTC: 11/07/23 at 11:30 (to assess tolerability of medication) Time spent with patient: 30 minutes PharmD tool: PBKurt PharmD Pharmacotherapy Rem V12: PHARMACIST INTERVENTIONS: TYPE 2 DIABETES MELLITUS Medication Intervention(s) Discontinue and/or change to different medication Discontinue and/or change to different medication due to other reason Initiate new medication Identify drug interaction Medication reconciliation (changes to active VA and non-VA medication lists to reconcile differences) No changes to medication lists made (medication review completed, no discrepancies identified) Prevent or manage an adverse drug reaction or event /kasia/ Rita Sanderson PharmD Clinical Pharmacist Practitioner Signed: 10/24/2023 16:11 10/24/2023 ADDENDUM STATUS: COMPLETED AMSA, please schedule CWM/SO/PHARM/PACT 3 TEL on 11/06/23 at 11:30. Thank you. /daphney Sanderson PharmD Clinical Pharmacist Practitioner Signed: 10/24/2023 16:12 Receipt Acknowledged By: * AWAITING SIGNATURE * PRINCE JAIN [facility] [place]
--- OUTSIDE RECORDS SUMMARY | 2024-08-07 12:16 | XMS_ITS | Continuity of Care Document ---
Author Name [facility] Organization [facility] Care Team Providers Care Adjunct History Instructor Name Role Phone [facility] Unavailable Unavailable Problems Combined list of problems from Department of Defense and Veterans Affairs facilities. It does not include entries that were removed or entered in error. Problem Status Onset Date Problem Type Date of Resolution Comments Source AF- Atrial Fibrillation ([facility] [id number]) Active Condition [facility] Basal Cell Carcinoma of Skin ([facility] [id number]) Active Condition Nov 02, 2021 Entered By: STACIE MATA Comment: Biopsy confirmed to scalp 05/20/21; Basal cell carcinoma, nodular type, extending to the lateral and deep tissue margins. s/p Mohs excision at [facility] Diabetes Mellitus Type 2 ([facility] [id number]) Active Condition [facility] History of malignant melanoma of the skin Active Condition [facility] HTN - Hypertension ([facility] [id number]) Active Condition [facility] Lymphedema of leg Active Condition Se p 2020 Entered By: STACIE MATA Comment: Right leg [facility] Parkinson's disease Active Condition [facility] Permanent cardiac pacemaker Active Condition [facility] Reduced mobility Active Condition [place] [facility] Spinal stenosis Active Condition [place] [facility] Tremor Active Condition Jul 28 Entered By: STACIE MATA Comment: Collette Dx noted in vista; [facility] 11/2020 records [facility] Diagnosis: ICD-10-CM I48.91 Unspecified atrial fibrillation Active Diagnosis [facility] ([facility]) Diagnosis: ICD-10-CM Z46.0 Encounter for fit/adjst of spectacles and contact lenses Active Diagnosis [facility] Diagnosis: ICD-10-CM E11.9 Type 2 diabetes mellitus without complications Active Diagnosis [facility] Diagnosis: ICD-10-CM Z71.9 Counseling, unspecified Active Diagnosis [place] ([facility]) Diagnosis: ICD-10-CM G20.B1 Parkinson's dis with dyskinesia, 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 fluctuations Active Diagnosis [place] ([facility]) Diagnosis: ICD-10-CM G20.C Parkinsonism, unspecified Active Diagnosis [facility] Diagnosis: ICD-10-CM E11.621 Type 2 diabetes mellitus with foot ulcer Active Diagnosis [place] ([facility]) Diagnosis: ICD-10-CM Z85.820 Personal history of malignant melanoma of skin Active Diagnosis [place] ([facility]) Diagnosis: ICD-10-CM I10 Essential (primary) hypertension Active Diagnosis [facility] ([facility]) Diagnosis: ICD-10-CM F43.21 Adjustment disorder with depressed mood Active Diagnosis [place] Diagnosis: ICD-10-CM S81.802A Unspecified open wound, left lower leg, initial encounter Active Diagnosis [facility] ([facility]) Diagnosis: ICD-10-CM Z48.02 Encounter for removal of sutures Active Diagnosis [facility]) Medications Combined list of outpatient medications from Department of Defense and Veterans Affairs facilities.Medications provided include 1) outpatient medications from the last 15 months, and 2) patient-reported medications. Medication Details Route Status Patient Instructions Prescription Expires Prescription Number Last Dispense Date Ordering Provider Order Date Order Qty Source ALOGLIPTIN 25MG TAB TAKE ONE TABLET BY MOUTH ONCE DAILY FOR TYPE 2 DIABETES MELLITUS ORAL DISCONT INUED BY LESLIE Pal 10/24/2024 [id number] SANDY ANDRADE 2023 90 [place] APIXABAN 5MG TAB TAKE ONE TABLET BY MOUTH TWICE DAILY ORAL ACTIVE 08/18/2024 [id number] MARCELINA DEJESUS 2023 180 [place] ([facility] APIXABAN 5MG TAB TAKE ONE TABLET BY MOUTH TWICE DAILY ORAL DISCONT INUED 08/11/2023 [id number] LELAND MATA 2022 180 [facility] CARBIDOPA 25MG/LEVODO PA 100MG TAB TAKE 1 TABLET BY MOUTH THREE TIMES A DAY FOR 7 DAYS, THEN TAKE 2 TABLETS THREE TIMES A DAY FOR PARKINSO N'S DISEASE ORAL ACTIVE 2024 [id number] 4 HAYDEN LIN Y 2023 540 [facility] CARBIDOPA 25MG/LEVODO PA 100MG TAB TAKE 1 TABLET BY MOUTH THREE TIMES A DAY FOR 7 DAYS, THEN TAKE 2 TABLETS THREE TIMES A DAY FOR PARKINSO N'S DISEASE ORAL DISCONT INUED 07/10/2024 [id number] HAYDEN LIN Y 2022 [facility] ENTACAPONE 200MG TAB TAKE ONE TABLET BY MOUTH THREE TIMES A DAY FOR PARKINSO N'S DISEASE ORAL DISCONT INUED BY PROVIDE R 09/10/2024 [id number] MARCLEINA DEJESUSUGHN 2023 270 [place] ([facility]) FLUTICASONE PROPIONATE 50MCG/SPRAY SOLN,NASAL, 16GM INSTILL 2 SPRAYS INTO EACH NOSTRIL ONCE DAILY NASAL ACTIVE 10/10/2024 [id number] 4 MARCELINA DEJESUS JIA 2023 3 [place] [facility] FUROSEMIDE 20MG TAB TAKE ONE TABLET BY MOUTH TWICE DAILY TO REMOVE FLUID/CO NTROL BLOOD PRESSURE ORAL ACTIVE 03/28/2025 [id number] 4 MARCELINA DEJESUSUGHN 2023 180 [place] ([facility]) FUROSEMIDE 20MG TAB TAKE ONE TABLET BY MOUTH ONCE DAILY TO REMOVE FLUID/CO NTROL BLOOD PRESSURE ORAL DISCONT INUED (EDIT) 09/19/2024 [id number] 4 Ashley WALKER 2023 90 [place] ([facility]) FUROSEMIDE 20MG TAB TAKE ONE TABLET BY MOUTH ONCE DAILY TO REMOVE FLUID/CO NTROL BLOOD PRESSURE ORAL DISCONT INUED 08/11/2023 [id number] 3 LELAND MATA 2022 90 [facility] GLIMEPIRIDE 1MG TAB TAKE ONE TABLET BY MOUTH ONCE DAILY FOR TYPE 2 DIABETES MELLITUS ORAL ACTIVE 10/31/2024 [id number] 5 MARCELINA DEJESUS 2024 90 [place] ([facility]) GLIMEPIRIDE 1MG TAB TAKE ONE TABLET BY MOUTH ONCE DAILY FOR TYPE 2 DIABETES MELLITUS ORAL DISCONT INUED 06/25/2024 [id number] 4 MARCELINA DEJESUS 2023 90 [place] [facility]) GLIMEPIRIDE 1MG TAB TAKE ONE AND ONE-HALF TABLETS BY MOUTH ONCE DAILY FOR TYPE 2 DIABETES MELLITUS ORAL DISCONT INUED (EDIT) 03/17/2024 [id number] 3 Ashley WALKER 2022 135 [place] GLIMEPIRIDE 2MG TAB TAKE ONE TABLET BY MOUTH ONCE DAILY FOR TYPE 2 DIABETES MELLITUS ORAL DISCONT INUED BY PROVIDE R 09/22/2024 [id number] 4 MARCELINA DEJESUS 2023 90 [place] [facility]) LIDOCAINE 5% PATCH APPLY 1 PATCH TOPICALL Y ONCE DAILY NEEDED FOR NERVE PAIN (LEAVE PATCH ON FOR 12 HOURS, THEN REMOVE PATCH) TOPICA L ACTIVE 10/10/2024 [id number] 4 MARCELINA DEJESUS 2023 90 [place] ([facility]) METFORMIN HCL 500MG 24HR TAB,SA TAKE ONE TABLET BY MOUTH ONCE DAILY FOR 1 WEEK, THEN TAKE TWO TABLETS ONCE DAILY FOR TYPE 2 DIABETES MELLITUS ORAL DISCONT INUED BY PROVIDE R 12/02/2023 [id number] SANDY ANDRADE 2023 113 [place] METOPROLOL TARTRATE 50MG TAB TAKE ONE AND ONE-HALF TABLETS BY MOUTH TWICE DAILY FOR HEART RATE CONTROL FOR BLOOD PRESSURE /HEART ORAL ACTIVE 05/16/2025 [id number] 5 MARCELINA DEJESUS 2023 180 [place] ([facility]) METOPROLOL TARTRATE 50MG TAB TAKE ONE TABLET BY MOUTH TWICE DAILY FOR BLOOD PRESSURE /HEART ORAL DISCONT INUED (EDIT) 02/26/2025 [id number] 4 MARCELINA DEJESUS 2023 180 [place] ([facility]) METOPROLOL TARTRATE 50MG TAB TAKE ONE TABLET BY MOUTH TWICE DAILY FOR BLOOD PRESSURE /HEART ORAL DISCONT INUED 02/10/2024 [id number] 4 Ashley WALKER 2022 180 [place] SITAGLIPTIN (EQV-ZITUVI O) 100MG TAB TAKE ONE TABLET BY MOUTH ONCE DAILY ORAL DISCONT INUED BY PROVIDE R 01/30/2025 [id number] 4 JAYDEN RACHEL 2023 30 [place] ([facility]) Allergies, Adverse Reactions, Alerts Combined list of allergies from Department of Defense and Veterans Affairs facilities. It does not include entries that were removed or entered in error. Substance Category Reaction Severity Reaction type Status Date Reported Comments Source LISINOPRIL Propensity to adverse reactions to drug (finding) Anaphylaxis active 2 [facility] METFORMIN Propensity to adverse reactions to drug (finding) Diarrhea MODERATE active 4 [facility] Immunizations Combined list of available immunizations from the Department of Defense and Veterans Affairs facilities. Immunization Series Date Given Administered By Site Reaction Lot Number CVX Code Drug Document Design Specialist Status Comments Source COVID-19 (PFIZER), MRNA, LNP-S, PF, IAN-SUCROSE, 30 MCG/0.3 ML (AGES 12+ YEARS) 2023 309 complet ed [facility] INFLUENZA, UNSPECIFIED FORMULATION 2023 88 complet ed [facility] RESPIRATORY SYNCYTIAL VIRUS (RSV), UNSPECIFIED 2023 304 complet ed [facility] COVID-19 (MODERNA), MRNA, LNP-S, PF, 50 MCG/0.5 ML (AGES 12+ YEARS) 2022 312 complet ed [facility] INFLUENZA, UNSPECIFIED FORMULATION 2022 88 complet ed [facility] PNEUMOCOCCAL CONJUGATE PCV20, POLYSACCHARID E [id number] CONJUGATE, ADJUVANT, PF 2022 ABAD COLLINS E LEFT DELTO ID [id number] 216 complet ed [place] ([facility]) COVID-19 (MODERNA), MRNA, LNP-S, BIVALENT BOOSTER, PF, 50 MCG/0.5 ML OR 25MCG/0.25 ML DOSE 1 2021 229 complet ed [facility] INFLUENZA VACCINE, QUADRIVALENT, ADJUVANTED 2021 205 complet ed [place] ([facility]) ZOSTER RECOMBINANT 2 2021 187 complet ed [place] [facility]) COVID-19 (PFIZER), MRNA, LNP-S, PF, 30 MCG/0.3 ML DOSE 4 2021 208 complet ed [facility] PNEUMOCOCCAL POLYSACCHARID E PPV23 2021 33 complet ed [place] [facility]) ZOSTER RECOMBINANT 1 2021 187 complet ed [place] [facility] TDAP 2020 115 complet ed [place] [facility] COVID-19 (MODERNA), MRNA, LNP-S, PF, 100 MCG OR 50 MCG DOSE 3 2020 207 complet ed [facility] INFLUENZA VACCINE, QUADRIVALENT, ADJUVANTED 2020 205 complet ed [place] ([facility]) COVID-19 (CHRISTY), VECTOR-NR, RS-AD26, PF, 0.5 ML 1 2020 212 complet ed [facility] Results Combined list of recent chemistry, hematology and other laboratory results from Department of Defense and Veterans Affairs, ranging from 15 months to all on record, depending upon the facility. Order Name Results Value Reference Range Date Interpretation Specimen Comments Source MICROALBU MIN CREATININ E RATIO PANEL MICROALBUM IN/CREATIN INE [MASS RATIO] IN URINE 13.3 mg/g 0 - 29.9 03/20 Specimen Type: URINE No comment entered. Ordering Provider: LEANDRA DEJESUS Report Released Date/Time: Mar 11, 2024 11:36 AM Reporting Lab: [facility] [address] Performing Lab: [facility] [address] [place] [facility] MICROALBU MIN CREATININ E RATIO PANEL MICROALBUM IN [MASS/VOLU ME] IN URINE 2.0 mg/dL 03/20 Specimen Type: URINE No comment entered. Ordering Provider: LEANDRA EDJESUS Report Released Date/Time: Mar 11, 2024 11:36 AM Reporting Lab: [facility] [address] [address] Performing Lab: [facility] [address] [address] [place] [facility] MICROALBU MIN CREATININ E RATIO PANEL CREATININE [MASS/VOLU ME] IN URINE 150.03 mg/dL 03/20 Specimen Type: URINE No comment entered. Ordering Provider: LEANDRA DEJESUS Report Released Date/Time: Mar 11, 2024 11:36 AM Reporting Lab: [facility] [address] [address] Performing Lab: [facility] [address] [address] [place] ([facility]) URINALYSI S COLOR OF URINE Yellow 03/20 Specimen Type: URINE Comment: If Glucose = >500 and Ketones are positive, please alert the Physician. Ordering Provider: LEANDRA DEJESUS Report Released Date/Time: Mar 11, 2024 11:36 AM Reporting Lab: [facility] [address] [address] Performing Lab: [facility] [address] [place] ([facility]) URINALYSI S APPEARANCE OF URINE Clear 03/20 Specimen Type: URINE Comment: If Glucose = >500 and Ketones are positive, please alert the Physician. Ordering Provider: LEANDRA DEJESUS Report Released Date/Time: Mar 11, 2024 11:36 AM Reporting Lab: [address] [address] Performing Lab: [address] [address] [place] ([facility]) URINALYSI S GLUCOSE [MASS/VOLU ME] IN URINE Normalm g/dL 03/20 Specimen Type: URINE Comment: If Glucose = >500 and Ketones are positive, please alert the Physician. Ordering Provider: LEANDRA DEJESUS Report Released Date/Time: Mar 11, 2024 11:36 AM Reporting Lab: [address] [address] Performing Lab: [address] [address] [place] ([facility]) URINALYSI S KETONES [MASS/VOLU ME] IN URINE BY TEST STRIP NEGATIV Emg/dL 03/20 Specimen Type: URINE Comment: If Glucose = >500 and Ketones are positive, please alert the Physician. Ordering Provider: LEANDRA DEJESUS Report Released Date/Time: Mar 11, 2024 11:36 AM Reporting Lab: [address] [address] Performing Lab: [address] [address] [place] [facility]) URINALYSI S ERYTHROCYT ES [PRESENCE] IN URINE SEDIMENT BY LIGHT MICROSCOPY NEGATIV Emg/dL 03/20 Specimen Type: URINE Comment: If Glucose = >500 and Ketones are positive, please alert the Physician. Ordering Provider: LEANDRA DEJESUS Report Released Date/Time: Mar 11, 2024 11:36 AM Reporting Lab: [address] [address] Performing Lab: [address] [address] [place] ([facility]) URINALYSI S PROTEIN [MASS/VOLU ME] IN URINE BY TEST STRIP 10 mg/dL 03/20 Specimen Type: URINE Comment: If Glucose = >500 and Ketones are positive, please alert the Physician. Ordering Provider: LEANDRA DEJESUS Report Released Date/Time: Mar 11, 2024 11:36 AM Reporting Lab: [address] [address] Performing Lab: [address] [address] [place] ([facility]) URINALYSI S NITRITE [PRESENCE] IN URINE NEGATIV Emg/dL 03/20 Specimen Type: URINE Comment: If Glucose = >500 and Ketones are positive, please alert the Physician. Ordering Provider: LEANDRA DEJESUS Report Released Date/Time: Mar 11, 2024 11:36 AM Reporting Lab: [address] [address] Performing Lab: [address] [address] [place] ([facility]) URINALYSI S BILIRUBIN. TOTAL [PRESENCE] IN URINE NEGATIV Emg/dL 03/20 Specimen Type: URINE Comment: If Glucose = >500 and Ketones are positive, please alert the Physician. Ordering Provider: LEANDRA DEJESUS Report Released Date/Time: Mar 11, 2024 11:36 AM Reporting Lab: [address] [address] Performing Lab: [address] [address] [place] ([facility]) URINALYSI S SPECIFIC GRAVITY OF URINE BY REFRACTOME TRY 1.023 1.016 - 1.022 03/20 H Specimen Type: URINE Comment: If Glucose = >500 and Ketones are positive, please alert the Physician. Ordering Provider: LEANDRA DEJESUS Report Released Date/Time: Mar 11, 2024 11:36 AM Reporting Lab: [address] [address] Performing Lab: [address] [address] [place] ([facility] URINALYSI S PH OF URINE BY TEST STRIP 6.0 5.0 - 9.0 03/20 Specimen Type: URINE Comment: If Glucose = >500 and Ketones are positive, please alert the Physician. Ordering Provider: LEANDRA DEJESUS Report Released Date/Time: Mar 11, 2024 11:36 AM Reporting Lab: [address] [address] Performing Lab: [address] [address] [place] [facility] URINALYSI S UROBILINOG EN [MASS/VOLU ME] IN URINE BY TEST STRIP Normalm g/dL <2.0 - 2.0 03/20 Specimen Type: URINE Comment: If Glucose = >500 and Ketones are positive, please alert the Physician. Ordering Provider: LEANDRA DEJESUS Report Released Date/Time: Mar 11, 2024 11:36 AM Reporting Lab: [address] [address] Performing Lab: [address] [address] [place] [facility]) URINALYSI S LEUKOCYTE ESTERASE [PRESENCE] IN URINE BY TEST STRIP SMALL 03/20 Specimen Type: URINE Comment: If Glucose = >500 and Ketones are positive, please alert the Physician. Ordering Provider: LEANDRA DEJESUS Report Released Date/Time: Mar 11, 2024 11:36 AM Reporting Lab: [address] [address] Performing Lab: [address] [address] [place] [facility]) MICROSCOP IC AUTOMATED , URINE LEUKOCYTES [#/AREA] IN URINE SEDIMENT BY MICROSCOPY HIGH POWER FIELD 6-10/[H PF] 0 - 5 03/20 H Specimen Type: URINE Comment: If Glucose = >500 and Ketones are positive, please alert the Physician. Ordering Provider: LEANDRA DEJESUS Report Released Date/Time: Mar 11, 2024 11:36 AM Reporting Lab: [address] [address] Performing Lab: [address] [address] [place] [facility] MICROSCOP IC AUTOMATED , URINE MUCUS [#/AREA] IN URINE SEDIMENT BY MICROSCOPY LOW POWER FIELD FEW/[LP F] 03/20 Specimen Type: URINE Comment: If Glucose = >500 and Ketones are positive, please alert the Physician. Ordering Provider: LEANDRA DEJESUS Report Released Date/Time: Mar 11, 2024 11:36 AM Reporting Lab: [address] [address] Performing Lab: [address] [address] [place] [facility]) MICROSCOP IC AUTOMATED , URINE ERYTHROCYT ES [#/AREA] IN URINE SEDIMENT BY MICROSCOPY HIGH POWER FIELD 0-2/[HP F] 0 - 3 03/20 Specimen Type: URINE Comment: If Glucose = >500 and Ketones are positive, please alert the Physician. Ordering Provider: LEANDRA DEJESUS Report Released Date/Time: Mar 11, 2024 11:36 AM Reporting Lab: [address] [address] Performing Lab: [address] [address] [place] [facility]) MICROSCOP IC AUTOMATED , URINE EPITHELIAL CELLS.SQUA MOUS [#/AREA] IN URINE SEDIMENT BY MICROSCOPY HIGH POWER FIELD FEW/[HP F] 03/20 Specimen Type: URINE Comment: If Glucose = >500 and Ketones are positive, please alert the Physician. Ordering Provider: LEANDRA DEJESUS Report Released Date/Time: Mar 11, 2024 11:36 AM Reporting Lab: [address] [address] Performing Lab: [address] [address] [place] [facility] VITAMIN B12 COBALAMIN (VITAMIN B12) [MASS/VOLU ME] IN SERUM OR PLASMA 386 pg/mL 200 - 900 03/20 Specimen Type: SERUM No comment entered. Ordering Provider: LEANDRA DEJESUS Report Released Date/Time: Mar 11, 2024 11:36 AM Reporting Lab: [address] [address] Performing Lab: [address] [address] [place] ([facility]) VITAMIN D (25-OH) 25-HYDROXY VITAMIN D3 [MASS/VOLU ME] IN SERUM OR PLASMA 29 ng/mL 20 - 50 03/20 Specimen Type: SERUM No comment entered. Ordering Provider: LEANDRA DEJESUS Report Released Date/Time: Mar 11, 2024 11:36 AM Reporting Lab: [address] [address] Performing Lab: [address] [address] [place] [facility] TSH THYROTROPI N [UNITS/VOL UME] IN SERUM OR PLASMA 1.56 u[IU]/m L 0.35 - 5.00 03/20 Specimen Type: SERUM No comment entered. Ordering Provider: LEANDRA DEJESUS Report Released Date/Time: Mar 11, 2024 11:36 AM Reporting Lab: [address] [address] Performing Lab: [address] [address] [place] [facility]) LIPID PANEL, NON FASTING CHOLESTERO L [MASS/VOLU ME] IN SERUM OR PLASMA 162 mg/dL 03/20 Specimen Type: SERUM No comment entered. Ordering Provider: LEANDRA DEJESUS Report Released Date/Time: Mar 11, 2024 11:36 AM Reporting Lab: [facility] [address] [facility] [address] Performing Lab: [facility] [address] [facility] [address] [place] [facility]) LIPID PANEL, NON FASTING TRIGLYCERI DE [MASS/VOLU ME] IN SERUM OR PLASMA 115 mg/dL 0 - 150 03/20 Specimen Type: SERUM No comment entered. Ordering Provider: LEANDRA DEJESUS Report Released Date/Time: Mar 11, 2024 11:36 AM Reporting Lab: [facility] [address] [address] Performing Lab: [address] [address] [place] ([facility]) LIPID PANEL, NON FASTING CHOLESTERO L IN LDL [MASS/VOLU ME] IN SERUM OR PLASMA BY CALCULATIO N 99 mg/dL 0 - 129 03/20 Specimen Type: SERUM No comment entered. Ordering Provider: LEANDRA DEJESUS Report Released Date/Time: Mar 11, 2024 11:36 AM Reporting Lab: [address] [address] Performing Lab: [address] [address] [place] ([facility]) LIPID PANEL, NON FASTING CHOLESTERO L.TOTAL/CH OLESTEROL IN HDL [MASS RATIO] IN SERUM OR PLASMA 4.1 03/20 Specimen Type: SERUM No comment entered. Ordering Provider: LEANDRA DEJESUS Report Released Date/Time: Mar 11, 2024 11:36 AM Reporting Lab: [address] [address] Performing Lab: [address] [address] [place] ([facility]) LIPID PANEL, NON FASTING CHOLESTERO L IN HDL [MASS/VOLU ME] IN SERUM OR PLASMA 40 mg/dL 40 - 60 03/20 Specimen Type: SERUM No comment entered. Ordering Provider: LEANDRA DEJESUS Report Released Date/Time: Mar 11, 2024 11:36 AM Reporting Lab: [facility] [address] [address] Performing Lab: [facility] [address] [address] [place] ([facility]) LIVER FUNCTION PROTEIN [MASS/VOLU ME] IN SERUM OR PLASMA 6.9 g/dL 6.0 - 8.3 03/20 Specimen Type: SERUM No comment entered. Ordering Provider: LEANDRA DEJESUS Report Released Date/Time: Mar 11, 2024 11:36 AM Reporting Lab: [facility] [address] [address] Performing Lab: [facility] [address] [address] [place] [facility]) LIVER FUNCTION ALBUMIN [MASS/VOLU ME] IN SERUM OR PLASMA 3.5 g/dL 3.5 - 5.0 03/20 Specimen Type: SERUM No comment entered. Ordering Provider: LEANDRA DEJESUS Report Released Date/Time: Mar 11, 2024 11:36 AM Reporting Lab: [facility] [address] [address] Performing Lab: [facility] [address] [address] [place] [facility]) LIVER FUNCTION ALKALINE PHOSPHATAS E [ENZYMATIC ACTIVITY/V OLUME] IN SERUM OR PLASMA 79 U/L 40 - 150 03/20 Specimen Type: SERUM No comment entered. Ordering Provider: LEANDRA DEJESUS Report Released Date/Time: Mar 11, 2024 11:36 AM Reporting Lab: [facility] [address] [address] Performing Lab: [facility] [address] [address] [place] [facility]) LIVER FUNCTION ASPARTATE AMINOTRANS FERASE [ENZYMATIC ACTIVITY/V OLUME] IN SERUM OR PLASMA 14 U/L 5 - 34 03/20 Specimen Type: SERUM No comment entered. Ordering Provider: LEANDRA DEJESUS Report Released Date/Time: Mar 11, 2024 11:36 AM Reporting Lab: [address] [address] Performing Lab: [facility] [address] [address] [place] [facility]) LIVER FUNCTION ALANINE AMINOTRANS FERASE [ENZYMATIC ACTIVITY/V OLUME] IN SERUM OR PLASMA <6U/L 03/20 Specimen Type: SERUM No comment entered. Ordering Provider: LEANDRA DEJESUS Report Released Date/Time: Mar 11, 2024 11:36 AM Reporting Lab: [address] [address] Performing Lab: [address] [address] [place] [facility]) LIVER FUNCTION BILIRUBIN. TOTAL [MASS/VOLU ME] IN SERUM OR PLASMA 0.5 mg/dL 0.2 - 1.2 03/20 Specimen Type: SERUM No comment entered. Ordering Provider: LEANDRA DEJESUS Report Released Date/Time: Mar 11, 2024 11:36 AM Reporting Lab: [address] [address] Performing Lab: [address] [address] [place] [facility]) CBC AND DIFF (AUTO) LEUKOCYTES [#/VOLUME] IN BLOOD BY AUTOMATED COUNT 6.97 10*3/uL 4.50 - 11.00 03/20 Specimen Type: BLOOD No comment entered. Ordering Provider: LEANDRA DEJESUS Report Released Date/Time: Mar 11, 2024 11:36 AM Reporting Lab: [facility] [address] [address] Performing Lab: [address] [address] [facility] D (CBOC) CBC AND DIFF (AUTO) ERYTHROCYT ES [#/VOLUME] IN BLOOD BY AUTOMATED COUNT 5.38 10*6/uL 4.23 - 5.66 03/20 Specimen Type: BLOOD No comment entered. Ordering Provider: LEANDRA DEJESUS Report Released Date/Time: Mar 11, 2024 11:36 AM Reporting Lab: [address] [address] Performing Lab: [address] [address] [facility] D (CBOC) CBC AND DIFF (AUTO) HEMOGLOBIN [MASS/VOLU ME] IN BLOOD 15.9 g/dL 12.8 - 17 03/20 Specimen Type: BLOOD No comment entered. Ordering Provider: LEANDRA DEJESUS Report Released Date/Time: Mar 11, 2024 11:36 AM Reporting Lab: [address] [address] Performing Lab: [address] [address] [place] D (CBOC) CBC AND DIFF (AUTO) HEMATOCRIT [VOLUME FRACTION] OF BLOOD BY AUTOMATED COUNT 47.9 39.2 - 50.4 03/20 Specimen Type: BLOOD No comment entered. Ordering Provider: LEANDRA DEJESUS Report Released Date/Time: Mar 11, 2024 11:36 AM Reporting Lab: [address] [address] Performing Lab: [address] [address] [facility] ([facility]) CBC AND DIFF (AUTO) MCV [ENTITIC VOLUME] BY AUTOMATED COUNT 89.0 fL 82 - 99 03/20 Specimen Type: BLOOD No comment entered. Ordering Provider: LEANDRA DEJESUS Report Released Date/Time: Mar 11, 2024 11:36 AM Reporting Lab: [address] [address] Performing Lab: [address] [address] [facility] ([facility]) CBC AND DIFF (AUTO) MCHC [MASS/VOLU ME] BY AUTOMATED COUNT 33.2 g/dL 30.8 - 35.1 03/20 Specimen Type: BLOOD No comment entered. Ordering Provider: LEANDRA DEJESUS Report Released Date/Time: Mar 11, 2024 11:36 AM Reporting Lab: [address] [address] Performing Lab: [address] [address] [facility] ([facility]) CBC AND DIFF (AUTO) PLATELETS [#/VOLUME] IN BLOOD BY AUTOMATED COUNT 224 10*3/uL 140 - 360 03/20 Specimen Type: BLOOD No comment entered. Ordering Provider: LEANDRA DEJESUS Report Released Date/Time: Mar 11, 2024 11:36 AM Reporting Lab: [address] [address] Performing Lab: [address] [address] [facility] ([facility]) CBC AND DIFF (AUTO) ERYTHROCYT E DISTRIBUTI ON WIDTH [RATIO] BY AUTOMATED COUNT 13.4 12.0 - 16.0 03/20 Specimen Type: BLOOD No comment entered. Ordering Provider: LEANDRA DEJESUS Report Released Date/Time: Mar 11, 2024 11:36 AM Reporting Lab: [address] [address] Performing Lab: [facility] [address] [address] [facility] (CBOC) CBC AND DIFF (AUTO) MONOCYTES [#/VOLUME] IN BLOOD BY AUTOMATED COUNT 0.65 10*3/uL 0.30 - 1.10 03/20 Specimen Type: BLOOD No comment entered. Ordering Provider: LEANDRA DEJESUS Report Released Date/Time: Mar 11, 2024 11:36 AM Reporting Lab: [address] [address] Performing Lab: [facility] [address] [place] [facility] ([facility]OC) CBC AND DIFF (AUTO) MCH [ENTITIC MASS] BY AUTOMATED COUNT 29.6 pg 26.2 - 32.6 03/20 Specimen Type: BLOOD No comment entered. Ordering Provider: LEANDRA DEJESUS Report Released Date/Time: Mar 11, 2024 11:36 AM Reporting Lab: [facility] [address] Performing Lab: [facility] [address] [place] [facility] ([facility]) CBC AND DIFF (AUTO) NEUTROPHIL S/100 LEUKOCYTES IN BLOOD BY AUTOMATED COUNT 73.0 43.7 - 75.8 03/20 Specimen Type: BLOOD No comment entered. Ordering Provider: LEANDRA DEJESUS Report Released Date/Time: Mar 11, 2024 11:36 AM Reporting Lab: [facility] [address] [address] Performing Lab: [facility] [address] [facility] ([facility]) CBC AND DIFF (AUTO) LYMPHOCYTE S/100 LEUKOCYTES IN BLOOD BY AUTOMATED COUNT 16.8 14.0 - 42.3 03/20 Specimen Type: BLOOD No comment entered. Ordering Provider: LEANDRA DEJESUS Report Released Date/Time: Mar 11, 2024 11:36 AM Reporting Lab: [facility]ITALUSETS [address] [address] Performing Lab: [facility]ETS [address] [address] [facility] ([facility]) CBC AND DIFF (AUTO) MONOCYTES/ 100 LEUKOCYTES IN BLOOD BY AUTOMATED COUNT 9.3 5.1 - 13.7 03/20 Specimen Type: BLOOD No comment entered. Ordering Provider: LEANDRA DEJESUS Report Released Date/Time: Mar 11, 2024 11:36 AM Reporting Lab: [facility] [address] Performing Lab: [facility] [address] [address] [facility] [facility] (CB[facility]) CBC AND DIFF (AUTO) EOSINOPHIL S/100 LEUKOCYTES IN BLOOD BY AUTOMATED COUNT 0.4 0.4 - 6.8 03/20 Specimen Type: BLOOD No comment entered. Ordering Provider: LEANDRA DEJESUS Report Released Date/Time: Mar 11, 2024 11:36 AM Reporting Lab: [facility] [address] [address] Performing Lab: [facility] [address] [address] [facility] [facility] ([facility]) CBC AND DIFF (AUTO) BASOPHILS/ 100 LEUKOCYTES IN BLOOD BY AUTOMATED COUNT 0.4 0.1 - 2.0 03/20 Specimen Type: BLOOD No comment entered. Ordering Provider: LEANDRA DEJESUS Report Released Date/Time: Mar 11, 2024 11:36 AM Reporting Lab: [facility] [address] [address] Performing Lab: [facility] [address] [address] [facility] [facility] ([facility]) CBC AND DIFF (AUTO) NEUTROPHIL S [#/VOLUME] IN BLOOD BY AUTOMATED COUNT 5.08 10*3/uL 2.20 - 7.60 03/20 Specimen Type: BLOOD No comment entered. Ordering Provider: LEANDRA DEJESUS Report Released Date/Time: Mar 11, 2024 11:36 AM Reporting Lab: [facility] [address] [address] Performing Lab: [facility] [address] [address] [facility] ([facility]) CBC AND DIFF (AUTO) LYMPHOCYTE S [#/VOLUME] IN BLOOD BY AUTOMATED COUNT 1.17 10*3/uL 1.00 - 3.20 03/20 Specimen Type: BLOOD No comment entered. Ordering Provider: LEANDRA DEJESUS Report Released Date/Time: Mar 11, 2024 11:36 AM Reporting Lab: [facility]ITALUSETS [address] [address] Performing Lab: [facility] [address] [facility] ([facility]) CBC AND DIFF (AUTO) EOSINOPHIL S [#/VOLUME] IN BLOOD BY AUTOMATED COUNT 0.03 10*3/uL 0.03 - 0.44 03/20 Specimen Type: BLOOD No comment entered. Ordering Provider: LEANDRA DEJESUS Report Released Date/Time: Mar 11, 2024 11:36 AM Reporting Lab: [facility] [address] [address] Performing Lab: [facility] [address] [address] [facility] ([facility]) CBC AND DIFF (AUTO) BASOPHILS [#/VOLUME] IN BLOOD BY AUTOMATED COUNT 0.03 10*3/uL 0.01 - 0.13 03/20 Specimen Type: BLOOD No comment entered. Ordering Provider: LEANDRA DEJESUS Report Released Date/Time: Mar 11, 2024 11:36 AM Reporting Lab: [facility] [address] [address] Performing Lab: [facility] [address] [address] [facility] ([facility]) CBC AND DIFF (AUTO) IMMATURE GRANULOCYT ES/100 LEUKOCYTES IN BLOOD BY AUTOMATED COUNT 0.1 0.0 - 0.7 03/20 Specimen Type: BLOOD No comment entered. Ordering Provider: LEANDRA DEJESUS Report Released Date/Time: Mar 11, 2024 11:36 AM Reporting Lab: [facility] [address] Performing Lab: [facility] [address] [facility] ([facility]) CBC AND DIFF (AUTO) IMMATURE GRANULOCYT ES [#/VOLUME] IN BLOOD 0.01 10*3/uL 0.00 - 0.06 03/20 Specimen Type: BLOOD No comment entered. Ordering Provider: LEANDRA DEJESUS Report Released Date/Time: Mar 11, 2024 11:36 AM Reporting Lab: [address] [address] Performing Lab: [address] [address] [facility] ([facility]) CBC AND DIFF (AUTO) NRBC % 0.0 0.0 - 0.0 03/20 Specimen Type: BLOOD No comment entered. Ordering Provider: LEANDRA DEJESUS Report Released Date/Time: Mar 11, 2024 11:36 AM Reporting Lab: [address] [address] Performing Lab: [address] [address] [facility] ([facility]) CBC AND DIFF (AUTO) NRBC, ABS 0.00 10*3/uL 0.00 - 0.00 03/20 Specimen Type: BLOOD No comment entered. Ordering Provider: LEANDRA DEJESUS Report Released Date/Time: Mar 11, 2024 11:36 AM Reporting Lab: [address] [address] Performing Lab: [address] [address] [facility] ([facility]) HEMOGLOBI N A1C PANEL HEMOGLOBIN A1C/HEMOGL OBIN.TOTAL IN BLOOD BY HPLC 6.0 4.0 - 5.6 03/20 H Specimen Type: BLOOD Comment: Values obtained from A1C measurement s can vary. For atypical A1C assays, a reported value of 7.0 could actually be between 6.72 and 7.28 if measured by a reference method. A reported value of 9.0 could actually be between 8.73 and 9.27. Ref: http://www. ngsp.org/[place] Pdata.asp Ordering Provider: LISA CARPENTER Report Released Date/Time: Jan 30, 2024 01:20 PM Reporting Lab: [facility] [address] [facility] [address] Performing Lab: [facility] [address] [facility] [address] [facility] Vital Signs Combined list of inpatient and outpatient Vital Signs from Department of Defense and Veterans Affairs, ranging from 12 months to all on record, depending upon the facility. Vital Sign Value Date Comments Source SYSTOLIC BLOOD PRESSURE 104 07/30/2024 15:39:32 [facility] ([facility]) DIASTOLIC BLOOD PRESSURE 67 07/30/2024 15:39:32 [facility] ([facility]) PULSE OXIMETRY 96 07/30/2024 15:39:32 [place] ([facility]) WEIGHT 211.4 07/30/2024 15:39:32 [place] ([facility]) BMI 35kg/m2 07/30/2024 15:39:32 [place] ([facility]) PAIN 4 07/30/2024 15:39:32 [place] ([facility]) TEMPERATURE 97.6 07/30/2024 15:39:32 [place] ([facility]) PULSE 86 07/30/2024 15:39:32 [place] ([facility]) RESPIRATION 20 07/30/2024 15:39:32 [place] ([facility]) SYSTOLIC BLOOD PRESSURE 96 06/12/2024 11:26:05 [facility] ([facility]) DIASTOLIC BLOOD PRESSURE 62 06/12/2024 11:26:05 [facility] ([facility]) PULSE OXIMETRY 95 06/12/2024 11:26:05 [place] ([facility]) WEIGHT 205.9 06/12/2024 11:26:05 [place] ([facility]) BMI 34kg/m2 06/12/2024 11:26:05 [place] ([facility]) PAIN 5 06/12/2024 11:26:05 [place] ([facility]) TEMPERATURE 98 06/12/2024 11:26:05 [place] ([facility]) PULSE 94 06/12/2024 11:26:05 [place] ([facility]) RESPIRATION 20 06/12/2024 11:26:05 [place] ([facility]) SYSTOLIC BLOOD PRESSURE 112 05/15/2024 15:08:12 [facility] ([facility]OC) DIASTOLIC BLOOD PRESSURE 71 05/15/2024 15:08:12 [facility] ([facility]) PULSE OXIMETRY 95 05/15/2024 15:08:12 [place] ([facility]) WEIGHT 203 05/15/2024 15:08:12 [place] ([facility]) BMI 34kg/m2 05/15/2024 15:08:12 [place] ([facility]) PAIN 5 05/15/2024 15:08:12 [place] ([facility]) TEMPERATURE 98.2 05/15/2024 15:08:12 [place] ([facility]) PULSE 92 05/15/2024 15:08:12 [place] ([facility]) RESPIRATION 20 05/15/2024 15:08:12 [place] ([facility]) SYSTOLIC BLOOD PRESSURE 109 03/27/2024 13:11:58 [facility] ([facility]OC) DIASTOLIC BLOOD PRESSURE 71 03/27/2024 13:11:58 [facility] ([facility]OC) PULSE OXIMETRY 95 03/27/2024 13:11:58 [place] ([facility]) WEIGHT 208.8 03/27/2024 13:11:58 [place] ([facility]) BMI 35kg/m2 03/27/2024 13:11:58 [place] ([facility]) PAIN 2 03/27/2024 13:11:58 [place] ([facility]) TEMPERATURE 98.8 03/27/2024 13:11:58 [place] ([facility]) PULSE 90 03/27/2024 13:11:58 [place] ([facility]) RESPIRATION 20 03/27/2024 13:11:58 [place] ([facility]OC) SYSTOLIC BLOOD PRESSURE 117 12/20/2023 14:05:36 [facility] (CBOC) DIASTOLIC BLOOD PRESSURE 73 12/20/2023 14:05:36 [facility] (CBOC) PULSE OXIMETRY 95 12/20/2023 14:05:36 [place] ([facility]OC) WEIGHT 200 12/20/2023 14:05:36 [place] ([facility]) BMI 33kg/m2 12/20/2023 14:05:36 [place] ([facility]) TEMPERATURE 97.8 12/20/2023 14:05:36 [place] ([facility]OC) PULSE 99 12/20/2023 14:05:36 [place] ([facility]) RESPIRATION 18 12/20/2023 14:05:36 VEE CASILLAS (CBOC) Encounters Combined list of: 1) Encounters from Department of Veterans Affairs facilities going back up to thelast 18 months. 2) Encounters from the Department of Defense facilities going back up to 280 months. Location Location Details Encounter Type Encounter Number Reason For Visit Attending Provider ADM Date DC Date Status Disposition Source [facility] Encounter [id number] 02/06 [facility]counter [id number] 02/07 [facility]counter [id number] 02/09 [facility]counter [id number] 03/04 [facility] [id number] 03/07 [facility] [id number] 03/13 [facility] [id number] ZION KUMAR 03/13 [facility] [id number] 03/13 [facility] [id number] 03/13 [facility] Encounter [id number] 03/14 [facility]counter [id number] 03/14 [facility] En[facility] [id number] 03/15 [facility] [id number] 03/15 [facility]counter [id number] 03/15 [facility]counter [id number] 03/17 [facility] Encounter [id number] 03/21 [facility] Encounter [id number] 03/22 [facility] [id number] 03/24 [facility] [id number] 03/27 [facility]counter [id number] 03/28 [facility] Encounter [id number] 03/28 [facility] ([facility]) OFF/OP EST MAY X REQ PHY/QHP [id number] Diagnos is: ICD-10- CM Z48.02 Encount er for removal of sutures
HERBERTH HenryTODD Dayne 04/05 [facility] [facility] ([facility]) [facility] ([facility]) OFFICE O/P EST LOW 20-29 MIN [id number] Diagnos is: ICD-10- CM S81.802 A Unspeci fied open wound, left lower leg, initial encount er
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< br/> AARONDA VID A 05/16 [place] ([facility]) [facility] En[facility] [id number] 05/17 [facility] Encounter [id number] 05/18 [facility] Encounter [id number] 06/07 [facility] Encounter [id number] 06/20 [facility] EYE EXAM NEW PATIENT [id number] Diagnos is: ICD-10- CM E11.9 Type 2 diabete s mellitu 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 complic ations< br/> ENRRIQUE DONALDSON 06/20 [facility] FIT SPECTACLES MULTIFOCAL [id number] Diagnos is: ICD-10- CM Z46.0 Encount er for fit/adj st of spectac les and contact lenses< br/> ENRRIQUE DONALDSON 06/21 [facility] Outpatient Encounter [id number] 06/23 [facility] Outpatient Encounter [id number] 06/27 [facility] OFFICE O/P EST MOD 30-39 MIN [id number] Diagnos is: ICD-10- CM 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, 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 fluctua tions<b r/> JUSTINE LIN IEL Y 07/10 [facility] Outpatient Encounter [id number] 07/12 [facility] Outpatient Encounter [id number] 07/12 [facility] Outpatient Encounter [id number] 07/31 [facility] Encounter [id number] 08/02 [facility] Out[facility] Encounter [id number] 08/16 [facility] Encounter [id number] 08/17 [facility] Out[facility] Encounter [id number] 09/04 [facility] Encounter [id number] 09/06 [facility] Encounter [id number] 09/06 [facility] Encounter [id number] 09/13 [facility] Encounter [id number] 09/14 [facility] Encounter [id number] 09/17 [facility] Out[facility] Encounter [id number] 09/19 [facility] ([facility]) OFFICE O/P EST HI 40 MIN [id number] Diagnos is: ICD-10- CM 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, 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 fluctua tions<b r/> ANJELICAMARCELINAAracely Hicks 09/22 GIA TORRES ([facility]) [facility] Out[facility] Encounter [id number] 09/25 [facility] Encounter [id number] Ashley NARAYAN AVID 09/26 [facility] Out[facility] Encounter [id number] 10/01 [facility] [place] [facility] PRO PHONE CALL 21-30 MIN [id number] Diagnos is: ICD-10- CM E11.9 Type 2 diabete s mellitu 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
LELAND MATA 10/15 [place] ([facility]) [facility] Outpatient Encounter [id number] 10/22 [facility] PRO PHONE CALL 11-20 MIN [id number] Diagnos is: ICD-10- CM E11.9 Type 2 diabete s mellitu s without complic ations< br/> NEELA ANDRADE 10/23 [place] [facility] Outpatient Encounter [id number] 10/23 [facility] OFFICE O/P EST MOD 30 MIN [id number] Diagnos is: ICD-10- CM 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, 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 fluctua tions<b r/> JUSTINE LIN IEDayne Y 10/25 [facility] [id number] 11/05 [facility] [id number] 11/06 [facility]counter [id number] 11/06 [facility] Outpatient Encounter [id number] 11/12 [place] [facility] [id number] 11/14 [facility] [id number] 11/16 [facility] [id number] 11/19 [facility] [id number] 11/19 [facility] [id number] 11/27 [facility] [id number] 11/28 [facility] [id number] 11/29 [facility] [id number] 11/29 [facility] [id number] 11/30 [facility] [id number] 12/03 [facility] [id number] 12/03 [facility] [id number] 12/04 [facility] [id number] 12/06 [facility] [id number] 12/06 [facility] [id number] 12/07 [facility] [id number] 12/08 [facility] [id number] 12/10 [facility] En[facility] [id number] 12/10 [facility] [facility] MTMS BY PHARM EST 15 MIN [id number] Diagnos is: ICD-10- CM E11.9 Type 2 diabete s mellitu s without complic ations< br/> Mony CARPENTER 12/10 [place] [facility] En[facility] [id number] 12/11 [facility] [id number] 12/13 [facility] En[facility] [id number] 12/18 [facility] OFF[facility] O/P EST MOD 30 MIN [id number] Diagnos is: ICD-10- CM E11.9 Type 2 diabete s mellitu s without complic ations< br/> ANJELICAMARCELINAAracely Hicks 12/19 [place] [facility] En[facility] [id number] 12/21 [facility] [id number] 12/26 [facility] [id number] 12/27 [facility] En[facility] [id number] 01/07 [facility] [facility] MTMS BY PHARM EST 15 MIN [id number] Diagnos is: ICD-10- CM E11.9 Type 2 diabete s mellitu s without complic ations< br/> Mony CARPENTER 01/07 [place] [facility] En[facility] [id number] 01/10 [facility] Encounter [id number] 01/10 [facility] Encounter [id number] 01/11 [facility] Out[facility] Encounter [id number] 01/23 [facility] [place] [facility] MTMS BY PHARM EST 15 MIN [id number] Diagnos is: ICD-10- CM E11.9 Type 2 diabete s mellitu s without complic ations< br/> Mony CARPENTER 01/29 [place] [facility] Out[facility] Encounter [id number] 02/02 [facility] Out[facility] Encounter [id number] 02/04 [facility] Out[facility] Encounter [id number] 02/05 [facility] Out[facility] Encounter [id number] 02/06 [facility] Out[facility] Encounter [id number] 02/08 [facility] Out[facility] Encounter [id number] 02/08 [facility] Out[facility] Encounter [id number] 02/09 [facility] Out[facility] Encounter [id number] 02/11 [facility] Out[facility] Encounter [id number] 02/15 [facility] Out[facility] Encounter [id number] 02/15 [facility] Out[facility] Encounter [id number] 02/19 [facility] Out[facility] Encounter [id number] 02/22 [facility] Out[facility] Encounter [id number] YANNI DEJESUS 02/22 [facility] Out[facility] Encounter [id number] 1.02/25 [facility] Out[facility] Encounter [id number] 02/25 [facility] Out[facility] Encounter [id number] 03/04 [facility] Out[facility] Encounter [id number] 03/11 [facility] Out[facility] Encounter [id number] 03/12 [facility] Out[facility] Encounter [id number] [facility] Out[facility] Encounter [id number] 03/14 [facility] Out[facility] Encounter [id number] 1.03/15 [facility] Out[facility] Encounter [id number] 1.03/21 [facility] Out[facility] Encounter [id number] 1.03/21 [facility] Encounter [id number] 1.03/24 [facility] Out[facility] Encounter [id number] 03/27 [facility] [place] [facility] OFFICE O/P EST MOD 30 MIN [id number] Diagnos is: ICD-10- CM 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
MORA GIFFORD 03/28 [place] [facility] Out[facility] Encounter [id number] 1.04/04 [facility] Out[facility] Encounter [id number] 1. CLARKE MARCOS 04/04 [facility] Out[facility] Encounter [id number] 1.04/05 [facility] Out[facility] Encounter [id number] 1.04/08 [facility] Out[facility] Encounter [id number] 1.04/08 [facility] Out[facility] Encounter [id number] 1.04/09 [facility] Out[facility] Encounter [id number] 1.04/09 [facility] Outpatient Encounter [id number] 1.04/11 [facility] Out[facility] Encounter [id number] 1.04/22 [facility] Out[facility] Encounter [id number] 04/24 [facility] Out[facility] Encounter [id number] 1.04/30 [facility] Out[facility] Encounter [id number] 1.05/02 [facility] Out[facility] Encounter [id number] 05/07 [facility] Outpatient Encounter [id number] 05/10 [facility] [place] [facility] OFFICE O/P EST MOD 30 MIN [id number] Diagnos is: ICD-10- CM I48.91 Unspeci fied atrial fibrill ation<b r/> ANJELICAYANNILAURA M 05/15 [place] [facility] [place] [facility] PRO PHONE CALL 5-10 MIN [id number] Diagnos is: ICD-10- CM Z71.9 Operations Staff Specialist Security ing, unspeci fied
MORA GIFFORD 05/16 [place] [facility]) [facility] Outpatient Encounter [id number] Diagnos is: ICD-10- CM G20.C Chaparro onism, unspeci fied
LIDIA KNOX 05/19 [facility] Outpatient Encounter [id number] 05/21 [facility] Outpatient Encounter [id number] 05/29 [facility] Outpatient Encounter [id number] 06/05 [facility] [place] ([facility] OFFICE O/P EST MOD 30 MIN [id number] Diagnos is: ICD-10- CM 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
MORA GIFFORD 06/13 [facility] ([facility]) [facility] COMPRE OPH EXAM EST PT 1/> [id number] 1. 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 Diagnos is: ICD-10- CM Z46.0 Encount er for fit/adj st of spectac les and contact lenses< br/> MENDOZAENRRIQUE Y J 06/25 [facility] Outpatient Encounter [id number] 06/28 [facility] Outpatient Encounter [id number] 07/08 [facility] Outpatient Encounter [id number] 07/22 [facility] ROSARIO Hernandez ([facility]) OFFICE O/P EST MOD 30 MIN [id number] Diagnos is: ICD-10- CM I48.91 Unspeci fied atrial fibrill ation<b r/> YANNI DEJESUS 07/30 [facility] ([facility]) [facility] Outpatient Encounter [id number] 08/02 [facility] Social History Combined list of available smoking, tobacco, and other social history from Department of Defense and Veterans Affairs facilities. Social History Type Response Date Comment Sourc e Tobacco smoking status [place] VA-TOBACCO NEVER USED 09/22/2023 [facility] ([facility]) History of tobacco use VA-TOBACCO NEVER USED 12/02/2022 [facility] ([facility]) History of tobacco use VA-TOBACCO NEVER USED 04/15/2022 [facility] ([facility]) History of tobacco use VA-TOBACCO NEVER USED 04/07/2021 [facility] ([facility]) Plan of Care List of future care activities from Department of Veterans Affairs facilities. Additional future care activities may be listed in the Assessment and Plan section. Date/Time Care Activity Care Activity Detail Facili ty 08/07/2024 AMBULATORY - MEDICINE AM[facility]ULATORY [facility]ICI [facility] 08/14/2024 AMBULATORY - NONE [facility]BULATORY - NONE [facility] 09/02/2024 AMBULATORY - MEDICINE AMBULATORY - MEDICI [facility] 09/18/2024 AMBULATORY - MEDICINE AMBULATORY - MEDICI NE [facility] ([facility]) 10/07/2024 AMBULATORY - MEDICINE AMBULATORY - MEDICI [facility] 06/28/2024 Consult Order PROSTHETICS REQU EST Cons Patient [facility] ([facility]) 08/02/2024 Consult Order COMMUNITY CARE-OCCUPATIONAL THERAPY Cons Patient [facility] ([facility]) 08/07/2024 Laboratory - Oracle Analyst ry Order CBC AND DIFF (AUTO) BLOOD (LAV-BLOOD) SP [facility] ([facility]) 08/07/2024 Laboratory - [facility] Analyst ry Order HEMOGLOBIN A1C PANEL BLOOD (LAV-BLOOD) [facility] [place] ([facility]) 08/07/2024 Laboratory - [facility] Analyst ry Order BASIC METABOLIC PANEL (non-fasting) BLOOD (SST-SERUM) [facility] ([facility]) 08/14/2024 Imaging - Ultrasound Order DUPLEX SCAN: EXTREMITY VEINS, UNILATERAL [facility] ([facility])
--- OUTSIDE RECORDS SUMMARY | 2024-08-07 12:17 | XMS_ITS | Encounter Summary ---
Author Name [facility] [place] [facility] [place] Address [address] [place] [address] Care Team Providers Care Patent Chemist Name Role Phone LENORA DEJESUS Primary Care [...] Jul 31, 2014 MEDICAR E SUPPLEM E [id number] [phone] FR GAMALIEL KAY PATIENT [facility] MEDICARE SUPPLEMEN [facility] MEDIC ARE SUPP Jul 31, 2014 SUPP [id number] [phone] FR GAMALIEL KAY PATIENT MEDICARE (WNR) MEDICARE (M) PART A Jan 29, 2004 PART A [id number] [phone] FR GAMALIEL KAY PATIENT MEDICARE (WNR) MEDICARE (M) PART B Jan 29, 2004 PART B [id number] [phone] FR GAMALIEL KAY PATIENT [facility] (WNR) MEDICARE ADVANTAGE [facility] ([facility]) Jul 31, 2023 [id number] RAHUL, GAMALIEL PATIENT [facility] MCR (WNR) MEDICARE ADVANTAGE MCR (WNR) Jul 31, 2023 [id number] [phone] FR GAMALIEL KAY PATIENT Selected Encounter This section includes the information on record at [place] for the Encounter. Date/Time Encounter Type Encounter Description Reason Pro vider Source Sep 13, 2023 12:00 AM Outpatient Encounter EVENT (HISTORICAL) IHE Encounter Template Text not used by [place] Plan of Treatment: Future Appointments (+ 6 months) and Future Tests (+/- 45 days) The Plan of Treatment section includes future care activities for the patient from all [place] treatmentfacilities. This section includes future appointments and future orders which are active, pending or scheduled. Future Appointments This section includes appointments that were scheduled to occur 6 months from the date of the Encounter, up to a maximum of 20 appointments. The data comes from all [place] treatment facilities. Appointment Date/Time Appointment Type Appointme nt Facility Name Sep 19, 2023 01:30 PM AMBULATORY - MEDICINE [place] [facility] [place] [facility] Sep 22, 2023 01:00 PM AMBULATORY - MEDICINE [facility] ([facility]) Oct 03, 2023 11:30 AM AMBULATORY - MEDICINE [facility] [place] [facility] Oct 06, 2023 03:00 PM AMBULATORY - PS[place]CHIATRY [facility] [place] [facility] Oct 10, 2023 02:00 PM AMBULATORY - MEDICINE [facility] ([facility]) Oct 11, 2023 01:00 PM AMBULATORY - NONE [facility] [place] [facility] Oct 16, 2023 02:00 PM AMBULATORY [facility] MEDICINE [facility] [place] [facility] Oct 24, 2023 11:30 AM AMBULATORY - MEDICINE [facility] [place] [facility] Oct 26, 2023 01:30 PM AMBULATORY - NEUROLOGY [facility] [place] [facility] Nov 13, 2023 01:00 PM AMBULATORY - MEDICINE [facility] [place] [facility] December 11, 2023 10:30 AM AMBULATORY - MEDICINE [facility] [place] [facility] December 20, 2023 09:00 AM AMBULATORY - MEDICINE [facility] [place] [facility] December 20, 2023 02:00 PM AMBULATORY - MEDICINE [facility] ([facility]) Jan 08, 2024 10:30 AM [facility] Jan 11, 2024 01:00 PM AMBULATORY - MEDICINE [place] [facility] [place] [facility] Jan 30, 2024 01:00 PM AMBULATORY - MEDICINE [facility] Active, Pending, and Scheduled Orders This section includes a listing of several types of active, pending, and scheduled orders, including clinic medications orders, diagnostic test orders, procedure orders and consult orders; where the start date of the order is 45 days before the date of the Encounter or 45 days after the date of theEncounter. The data comes from all [place] treatment facilities. Test Date/Time Test Type Test Details Facility Name 2023 01:37 PM Consult Order [facility]-NEUROLOGY Cons Egyptologist's Choice [facility] Lab Results: +/- 30 days of the encounter This section includes the Chemistry and Hematology Lab Results on record with [place] for the patient. Radiology Reports and Pathology Reports are provided separately, in subsequent sections. Lab Results This section contains the Chemistry/Hematology Results that were resulted 30 days before or 30 daysafter the date of the Encounter. Date/Time Source Result Type Result - Unit Interpretation Reference Range Comment Sep 13, 2023 01:18 PM [facility] ([facility]) MICROALBUMIN CREATININE RATIO PANEL Specimen Type: URINE No comment entered. Ordering Provider: FLYNN DEJESUS Report Released Date/Time: Sep 08, 2023 04:05 PM Reporting Lab: [facility] [address] [facility] [address] Performing Lab: [address] [address] MICROALBUMIN/C REATININE RATIO 16.2 mg/g 0-29.9 MICROALBUMIN,Q UANTITATIVE 2.8 mg/dL RR UNAVAIL CREATININE URINE 172.87 mg/dL Sep 13, 2023 01:18 PM [facility] ([facility]) VITAMIN D (25-OH) Specimen Type: SERUM No comment entered. Ordering Provider: FLYNN DEJESUS Report Released Date/Time: Sep 08, 2023 04:05 PM Reporting Lab: [address] [address] Performing Lab: [address] [address] VITAMIN D (25-OH) 39 ng/mL 20-50 Sep 13, 2023 01:18 PM [facility] ([facility]) URINALYSIS Specimen Type: URINE Comment: If Glucose = >500 and Ketones are positive, please alert the Physician. Ordering Provider: FLYNN DEJESUS Report Released Date/Time: Sep 08, 2023 04:05 PM Reporting Lab: [address] [address] Performing Lab: [address] [address] UA COLOR Yellow Yellow UA APPEARANCE Clear Clear UA GLUCOSE NEGATIVE mg/dL Negative UA KETONES NEGATIVE mg/dL Negative UA BLOOD NEGATIVE mg/dL Negative UA PROTEIN 20 mg/dL Negative UA NITRITE NEGATIVE mg/dL Negative UA BILIRUBIN NEGATIVE mg/dL Negative UA SPECIFIC GRAVITY 1.027 H 1.016-1.022 UA pH 5.5 5.0-9.0 UA UROBILINOGEN <2.0 mg/dL <2.0 UA LEUKOCYTE NEGATIVE Negative Sep 13, 2023 01:18 PM [facility] ([facility]) VITAMIN B12 Specimen Type: SERUM No comment entered. Ordering Provider: FLYNN DEJESUS Report Released Date/Time: Sep 08, 2023 04:05 PM Reporting Lab: [address] [address] Performing Lab: [address] [address] VITAMIN B12 359 pg/mL 200-900 Sep 13, 2023 01:18 PM [facility] ([facility]) TSH Specimen Type: SERUM No comment entered. Ordering Provider: FLYNN DEJESUS Report Released Date/Time: Sep 08, 2023 04:05 PM Reporting Lab: [address] [address] Performing Lab: [address] [address] TSH 1.81 u[IU]/mL 0.35-5.00 Sep 13, 2023 01:18 PM [facility] ([facility]) HEMOGLOBIN A1C PANEL Specimen Type: BLOOD Comment: [...] Sep 08, 2023 04:05 PM Reporting Lab: [address] Performing Lab: [place] [address] HEMOGLOBIN A1C 6.6 H 4.0-5.6 Sep 13, 2023 01:18 PM [facility] ([facility]) LIVER FUNCTION Specimen Type: SERUM No comment entered. Ordering Provider: FLYNN DEJESUS Report Released Date/Time: Sep 08, 2023 04:05 PM Reporting Lab: [address] [address] Performing Lab: [place] [id number] PROTEIN,TOTAL 7.1 g/dL 6.0-8.3 ALBUMIN 3.8 g/dL 3.5-5.0 ALKALINE PHOSPHATASE 82 U/L 40-150 AST 16 U/L 5-34 ALT 6 U/L BILIRUBIN, TOTAL 0.8 mg/dL 0.2-1.2 Sep 13, 2023 01:18 PM [facility] ([facility]) CBC AND DIFF (AUTO) Specimen Type: BLOOD No comment entered. Ordering Provider: FLYNN DEJESUS Report Released Date/Time: Sep 08, 2023 04:05 PM Reporting Lab: [address] [address] Performing Lab: [address] [address] WBC 8.48 10*3/uL 4.50-11.00 RBC 5.71 10*6/uL H 4.23-5.66 HGB 16.6 g/dL 12.8-17 HCT 49.8 39.2-50.4 MCV 87.2 fL 82-99 MCHC 33.3 g/dL 30.8-35.1 PLT 242 10*3/uL 140-360 RDW-CV 13.7 12.0-16.0 [place], Abs 0.73 10*3/uL 0.30-1.10 MCH 29.1 pg 26.2-32.6 Neut % 71.1 43.7-75.8 Lymph % 18.8 14.0-42.3 [place] % 8.6 5.1-13.7 Eos % 0.6 0.4-6.8 Baso % 0.7 0.1-2.0 Neut, Abs 6.03 10*3/uL 2.20-7.60 Lymph, Abs 1.59 10*3/uL 1.00-3.20 Eos, Abs 0.05 10*3/uL 0.03-0.44 Baso, Abs 0.06 10*3/uL 0.01-0.13 Immature Gran % 0.2 0.0-0.7 Immature Gran, Abs 0.02 10*3/uL 0.00-0.06 Sep 13, 2023 01:18 PM [facility] ([facility]) LIPID PANEL, NON FASTING Specimen Type: SERUM No comment entered. Ordering Provider: FLYNN DEJESUS Report Released Date/Time: Sep 08, 2023 04:05 PM Reporting Lab: [address] [address] Performing Lab: [address] [address] CHOLESTEROL 181 mg/dL TRIGLYCERIDE 142 mg/dL 0-150 LDL calculated 113 mg/dL 0-129 CHOL/HDL 4.5 HDL CHOLESTEROL 40 mg/dL 40-60 Sep 13, 2023 01:18 PM [facility] ([facility]) BASIC METABOLIC PANEL (non-fasting) Specimen Type: SERUM No comment entered. Ordering Provider: FLYNN DEJESUS Report Released Date/Time: Sep 08, 2023 04:05 PM Reporting Lab: [facility] [address] [facility] [address] Performing Lab: [facility] [address] [facility] [address] UREA NITROGEN 23 mg/dL 7-25 GLUCOSE 120 mg/dL H 65-100 SODIUM 138 mmol/L 135-145 POTASSIUM 3.9 mmol/L 3.5-5.0 CHLORIDE 104 mmol/L 100-110 CO2 25 meq/L 20-30 CREATININE, Serum 1.15 mg/dL 0.50-1.40 eGFR(CKD-EPI 2020) 64 mL/min >60 Radiology Reports: +/- 30 days of the [...] the Encounter. The data comes from all [place] treatment facilities. Date/Time Radiology Report Provider Source Oct 11, 2023 12:[address] LUMBAR SPINE W/O CONT: MUKUL KAY [id number] -1940 M Exm Date: OCT 11, 2023@12:58 Req Phys: LENORA DEJESUS Pat Loc: [facility]/GO/PACT 1 [facility] (Req'g Loc) Img Loc: [place]/CT Service: Unknown (Case [id number] COMPLETE) CT LUMBAR SPINE W/O CONT (CT Detailed) CPT:75240 Reason for Study: back pain Clinical History: radiating left leg Report Status: Verified Date Reported: OCT 12, 2023 Date Verified: OCT 12, 2023 Engraver Lettering E-Sig: Report: CT LUMBAR SPINE W/O CONT HISTORY: back pain COMPARISON: None TECHNIQUE: CT of the lumbar spine performed without contrast. Images were received by the [place] National Telerad[employer] Program (NTP) for interpretation. RADIATION [...] chronic. Correlate clinically. READING PHYSICIAN: Mir Nuñez -[phone] 10/12/2023 10:03 [facility] National Teleradiology Program [phone] (For Medical Practitioner Use Only) Attention Patients / Veterans: If you have questions or concerns about these test results, please contact your ordering provider or primary care team. Primary Diagnostic Code: SIGNIFICANT ABNORMALITY, ATTN NEEDED Primary Interpreting Staff: RADIOLOGY,OUTSIDE SERVICE, Staff Physician / RADIOLOGY,OUTSIDE SERVICE [facility] Encounter Notes: All associated encounter notes This section contains the clinical notes associated to the Encounter. Date/Time Encounter Note(s) Provider Source Sep 13, 2023 12:00 AM NONVA NOTE: LOCAL TITLE: NON-VA OUTPATIENT NOTES STANDARD TITLE: NONVA NOTE DATE OF NOTE: SEP 13, 2023 ENTRY DATE: SEP 25, 2023@06:30:25 AUTHOR: MIK LOPEZ COSIGNER: URGENCY: STATUS: COMPLETED VistA Imaging - Scanned Document SCANNED DOCUMENT SIGNATURE NOT REQUIRED Electronically Filed: 09/25/2023 by: MIK PISANO [facility]
--- OUTSIDE RECORDS SUMMARY | 2024-08-07 12:17 | XMS_ITS | Encounter Summary ---
Author Name [facility] [place] [facility] [place] Address [address] [place] [address] Care Team Providers Care Electronic Page Makeup System Operator Name Role Phone LENORA DEJESUS Primary Care [...] Jul 31, 2014 MEDICAR E SUPPLEM E [id number] [phone] FR GAMALIEL KAY PATIENT [facility] MEDICARE SUPPLEMEN EVANGELISTA MEDIC ARE SUPP Jul 31, 2014 SUPP [id number] [phone] FR GAMALIEL KAY PATIENT MEDICARE (WNR) MEDICARE (M) PART A Jan 29, 2004 PART A [id number] [phone] FR GAMALIEL KAY PATIENT MEDICARE (WNR) MEDICARE (M) PART B Jan 29, 2004 PART B [id number] [phone] FR GAMALIEL KAY PATIENT [facility] (WNR) MEDICARE ADVANTAGE [facility]) Jul 31, 2023 [id number] [phone] FR GAMALIEL KAY PATIENT [facility] MCR (WNR) MEDICARE ADVANTAGE MCR (WNR) Jul 31, 2023 [id number] [phone] FR GAMALIEL KAY PATIENT Selected Encounter This section includes the information on record at [place] for the Encounter. Date/Time Encounter Type Encounter Description Reason Pro vider Source Sep 04, 2023 11:05 AM Outpatient Encounter ADMIN PAT ACTIVTIES (MASNONCT) IHE Encounter Template Text not used by [place] Plan of Treatment: Future Appointments (+ 6 months) and Future Tests (+/- 45 days) The Plan of Treatment section includes future care activities for the patient from all [place] [facility]. This section includes future appointments and future orders which are active, pending or scheduled. Future Appointments This section includes appointments that were scheduled to occur 6 months from the date of the Encounter, up to a maximum of 20 appointments. The data comes from all [place] treatment facilities. Appointment Date/Time Appointment Type Appointme nt Facility Name Sep 19, 2023 01:30 PM [place]ATORY [place]ICINE [place] [facility] [place] [facility] Sep 22, 2023 01:00 PM [facility] Oct 03, 2023 11:30 AM [place]ORY [place]ICINE [place] [facility] [place] [facility] Oct 06, 2023 03:00 PM AMBULATORY - [place]IATRY [place] [facility] [place] [facility] Oct 10, 2023 02:00 PM [facility] ([facility] Oct 11, 2023 01:00 PM AMBULATORY - NONE [place] [facility] [place] [facility] Oct 16, 2023 02:00 PM AM[place]ULATORY [place]ICINE [place] [facility] [place] [facility] Oct 24, 2023 11:30 AM AM[place]ORY [place]ICINE [place] [facility] [place] [facility] Oct 26, 2023 01:30 PM AMBULATORY - NEUROLOGY [place] [facility] [place] [facility] Nov 13, 2023 01:00 PM AMBULATORY - MEDICINE [place] [facility] [place] [facility] December 11, 2023 10:30 AM AMBUL[place]ORY - [place]ICINE [place] [facility] [place] [facility] December 20, 2023 09:00 AM AMBULATORY - [place]ICINE [place] [facility] [place] [facility] December 20, 2023 02:00 PM [facility] ([facility]) Jan 08, 2024 10:30 AM [facility]BULATORY - MEDICINE [facility] Jan 11, 2024 01:00 PM [facility]BULAT[facility] - [facility]ICINE [facility] Jan 30, 2024 01:00 PM [facility] Lab Results: +/- 30 days of the encounter This section includes the Chemistry and Hematology Lab Results on record with [place] for the patient. Radiology Reports and Pathology Reports are provided separately, in subsequent sections. Lab Results This section contains the Chemistry/Hematology Results that were resulted 30 days before or 30 daysafter the date of the Encounter. Date/Time Source Result Type Result - Unit Interpretation Reference Range Comment Sep 13, 2023 01:18 PM [place] ([facility]) VITAMIN D (25-[place]) Specimen Type: SERUM No comment entered. Ordering Provider: FLYNN DEJESUS Report Released Date/Time: Sep 08, 2023 04:05 PM Reporting Lab: [address] [address] Performing Lab: [address] [address] VITAMIN D (25-OH) 39 ng/mL 20-50 Sep 13, 2023 01:18 PM [place] ([facility]) MICROALBUMIN CREATININE RATIO PANEL Specimen Type: URINE No comment entered. Ordering Provider: FLYNN DEJESUS Report Released Date/Time: Sep 08, 2023 04:05 PM Reporting Lab: [facility] [address] [facility] [address] Performing Lab: [address] [address] MICROALBUMIN/C REATININE RATIO 16.2 mg/g 0-29.9 MICROALBUMIN,Q UANTITATIVE 2.8 mg/dL RR UNAVAIL CREATININE URINE 172.87 mg/dL Sep 13, 2023 01:18 PM [place] ([facility]) VITAMIN B12 Specimen Type: SERUM No comment entered. Ordering Provider: FLYNN DEJESUS Report Released Date/Time: Sep 08, 2023 04:05 PM Reporting Lab: [address] [address] Performing Lab: [address] [address] VITAMIN B12 359 pg/mL 200-900 Sep 13, 2023 01:18 PM [place] ([facility]) URINALYSIS Specimen Type: URINE Comment: If Glucose = >500 and Ketones are positive, please alert the Physician. Ordering Provider: FLYNN DEJESUS Report Released Date/Time: Sep 08, 2023 04:05 PM Reporting Lab: [address] [address] Performing Lab: [address] [address] UA COLOR Yellow Yellow UA APPEARANCE Clear [...] Sep 13, 2023 01:18 PM [place] ([facility]) HEMOGLOBIN A1C PANEL Specimen Type: BLOOD [...] Sep 08, 2023 04:05 PM Reporting Lab: [address] [address] Performing Lab: [address] [address] HEMOGLOBIN A1C 6.6 H 4.0-5.6 Sep 13, 2023 01:18 PM [place] ([facility]) TSH Specimen Type: SERUM No comment entered. Ordering Provider: FLYNN DEJESUS Report Released Date/Time: Sep 08, 2023 04:05 PM Reporting Lab: [address] [address] Performing Lab: [address] [address] TSH 1.81 u[IU]/mL 0.35-5.00 Sep 13, 2023 01:18 PM [place] ([facility]) LIVER FUNCTION Specimen Type: SERUM No comment entered. Ordering Provider: FLYNN DEJESUS Report Released Date/Time: Sep 08, 2023 04:05 PM Reporting Lab: [address] [address] Performing Lab: [address] [address] PROTEIN,TOTAL 7.1 g/dL 6.0-8.3 ALBUMIN 3.8 g/dL 3.5-5.0 ALKALINE PHOSPHATASE 82 U/L 40-150 AST 16 U/L 5-34 ALT 6 U/L BILIRUBIN, TOTAL 0.8 mg/dL 0.2-1.2 Sep 13, 2023 01:18 PM [place] ([facility]) LIPID PANEL, NON FASTING Specimen Type: SERUM No comment entered. Ordering Provider: FLYNN DEJESUS Report Released Date/Time: Sep 08, 2023 04:05 PM Reporting Lab: [address] [address] Performing Lab: [address] [address] CHOLESTEROL 181 mg/dL TRIGLYCERIDE 142 mg/dL 0-150 LDL calculated 113 mg/dL 0-129 CHOL/HDL 4.5 HDL CHOLESTEROL 40 mg/dL 40-60 Sep 13, 2023 01:18 PM [place] ([facility]) BASIC METABOLIC PANEL (non-fasting) Specimen Type: SERUM No comment entered. Ordering Provider: FLYNN DEJESUS Report Released Date/Time: Sep 08, 2023 04:05 PM Reporting Lab: [facility] [address] [address] Performing Lab: [address] [address] UREA NITROGEN 23 mg/dL 7-25 GLUCOSE 120 mg/dL H 65-100 SODIUM 138 mmol/L 135-145 POTASSIUM 3.9 mmol/L 3.5-5.0 CHLORIDE 104 mmol/L 100-110 CO2 25 meq/L 20-30 CREATININE, Serum 1.15 mg/dL 0.50-1.40 eGFR(CKD-EPI 2020) 64 mL/min >60 Sep 13, 2023 01:18 PM [place] ([facility]) CBC AND DIFF (AUTO) Specimen Type: BLOOD No comment entered. Ordering Provider: FLYNN DEJESUS Report Released Date/Time: Sep 08, 2023 04:05 PM Reporting Lab: [address] [address] Performing Lab: [address] [address] WBC 8.48 10*3/uL 4.50-11.00 RBC 5.71 10*6/uL H 4.23-5.66 HGB 16.6 g/dL 12.8-17 HCT 49.8 39.2-50.4 MCV 87.2 fL 82-99 MCHC 33.3 g/dL 30.8-35.1 PLT 242 10*3/uL 140-360 RDW-CV 13.7 12.0-16.0 [place], Abs 0.73 10*3/uL 0.30-1.10 MCH 29.1 pg 26.2-32.6 Neut % 71.1 43.7-75.8 Lymph % 18.8 14.0-42.3 Fergus % 8.6 5.1-13.7 Eos % 0.6 0.4-6.8 [...] Encounter. Date/Time Encounter Note(s) Provider Source Sep 04, 2023 11:06 AM ADMINISTRATIVE NOT E: LOCAL TITLE: CCC: SCHEDULING ADMINISTRATION STANDARD TITLE: ADMINISTRATIVE NOTE DATE OF NOTE: SEP 04, 2023@11:06:04 ENTRY DATE: SEP 04, 2023@11:06:04 AUTHOR: LASHAY MENDEZ EXP COSIGNER: URGENCY: STATUS: COMPLETED CCC: SCHEDULING ADMINISTRATION Has ADDENDA Patient Demographics Patient Name: MUKUL KAY Patient Primary Phone: [phone] Patient Primary Address: [address] [place] [address] Patient : 1940 Patient Age: 82 Caller/Recipient Relation to Patient: Caregiver Caller Name: Eula Administrative Administrative Note Reason: Community Care / [place] Act Administrative Note Comments: Eula from barrel [facility] Dr. Blandon is requesting a [facility] referral. He was seen in their office on Monday, 2023. There is a prior consult dated 06/09/22. Eula can be reached at [phone] or fax [phone]. /kasia/ LASHAY MENDEZ VISN [address] [facility] AMSA Signed: 09/04/2023 11:06 Receipt Acknowledged By: 09/04/2023 12:07 /kasia/ TODD DANIELS RN REGISTERED NURSE 09/04/2023 13:17 /kasia/ CHRISTOPHER COLLINS LPN LICENSED PRACTICAL NURSE 09/04/2023 ADDENDUM STATUS: COMPLETED Consult added and held for PCP review and signature if appropriate. /kasia/ TODD DANIELS RN REGISTERED NURSE Signed: 09/04/2023 12:07 LASHAY MENDEZ [place] [facility]
--- OUTSIDE RECORDS SUMMARY | 2024-08-07 12:17 | XMS_ITS | Encounter Summary ---
Author Name [facility] [place] Organization [facility] [place] [facility] [place] Address [address] [place] [address] Care Team Providers Care Fax Machine Repairer Name Role Phone LENORA DEJESUS Primary Care [...] Jul 31, 2014 MEDICAR E SUPPLEM E [id number] [phone] FR GAMALIEL KAY PATIENT [facility] MEDICARE SUPPLEMEN EVANGELISTA MEDIC ARE SUPP Jul 31, 2014 SUPP [id number] [phone] FR GAMALIEL KAY PATIENT MEDICARE (WNR) MEDICARE (M) PART A Jan 29, 2004 PART A [id number] [phone] FR GAMALIEL KAY PATIENT MEDICARE (WNR) MEDICARE (M) PART B Jan 29, 2004 PART B [id number] [phone] FR GAMALIEL KAY PATIENT [facility] (WNR) MEDICARE ADVANTAGE [facility] ([facility]) Jul 31, 2023 [id number] [phone] FR GAMALIEL KAY PATIENT [facility] MCR (WNR) MEDICARE ADVANTAGE MCR (WNR) Jul 31, 2023 [id number] [phone] FR GAMALIEL KAY PATIENT Selected Encounter This section includes the information on record at [place] for the Encounter. Date/Time Encounter Type Encounter Description Reason Pro vider Source Sep 17, 2023 04:12 PM Outpatient Encounter ADMIN PAT ACTIVTIES (MASNONCT) IHE Encounter Template Text not used by [place] Plan of Treatment: Future Appointments (+ 6 months) and Future Tests (+/- 45 days) The Plan of Treatment section includes future care activities for the patient from all [place] [facility]. This section includes future appointments and future orders which are active, pending or scheduled. Future Appointments This section includes appointments that were scheduled to occur 6 months from the date of the Encounter, up to a maximum of 20 appointments. The data comes from all [place] treatment facilities. Appointment Date/Time Appointment Type Appointme nt Facility Name Sep 19, 2023 01:30 PM AMBULATORY - [place]ICINE [place] [facility] [place] [facility] Sep 22, 2023 01:00 PM AMBULATORY - MEDICINE [facility] ([facility]) Oct 03, 2023 11:30 AM AMBULATORY - MEDICINE [place] [facility] [place] [facility] Oct 06, 2023 03:00 PM AMBULATORY - PSYCHIATRY [place] [facility] [place] [facility] Oct 10, 2023 02:00 PM AMBULATORY - MEDICINE [facility] ([facility]) Oct 11, 2023 01:00 PM AMBULATORY - NONE [place] [facility] [place] [facility] Oct 16, 2023 02:00 PM AMBULATORY - MEDICINE [place] [facility] [place] [facility] Oct 24, 2023 11:30 AM AMBULATORY - MEDICINE [place] [facility] [place] [facility] Oct 26, 2023 01:30 PM AMBULATORY - NEUROLOGY [place] [facility] [place] [facility] Nov 13, 2023 01:00 PM AMBULATORY - MEDICINE [place] [facility] [facility] December 11, 2023 10:30 AM AMBULATORY - MEDICINE [place] [facility] [place] [facility] December 20, 2023 09:00 AM AMBULATORY - MEDICINE [place] [facility] [facility] December 20, 2023 02:00 PM AMBULATORY - MEDICINE [facility] ([facility]) Jan 08, 2024 10:30 AM AMBULATORY - MEDICINE [facility] [place] [facility] Jan 11, 2024 01:00 PM AMBULATORY - MEDICINE [facility] [place] [facility] Jan 30, 2024 01:00 PM AMBULATORY - MEDICINE [facility] Active, Pending, and Scheduled Orders This section includes a listing of several types of active, pending, and scheduled orders, including clinic medications orders, diagnostic test orders, procedure orders and consult orders; where the start date of the order is 45 days before the date of the Encounter or 45 days after the date of theEncounter. The data comes from all [place] treatment facilities. Test Date/Time Test Type Test Details Facility Name 2023 01:37 PM Consult Order [facility]UR[facility] Cons Endoscopy Support Specialist's Choice [facility] Lab Results: +/- 30 days of the encounter This section includes the Chemistry and Hematology Lab Results on record with [place] for the patient. Radiology Reports and Pathology Reports are provided separately, in subsequent sections. Lab Results This section contains the Chemistry/Hematology Results that were resulted 30 days before or 30 daysafter the date of the Encounter. Date/Time Source Result Type Result - Unit Interpretation Reference Range Comment Sep 13, 2023 01:18 PM [place] ([facility]) VITAMIN B12 Specimen Type: SERUM No comment entered. Ordering Provider: FLYNN DEJESUS Report Released Date/Time: Sep 08, 2023 04:05 PM Reporting Lab: [address] [address] Performing Lab: [address] [address] VITAMIN B12 359 pg/mL 200-900 Sep 13, 2023 01:18 PM [place] ([facility]) VITAMIN D (25-OH) Specimen Type: SERUM No comment entered. Ordering Provider: FLYNN DEJESUS Report Released Date/Time: Sep 08, 2023 04:05 PM Reporting Lab: [address] [address] Performing Lab: [address] [address] VITAMIN D (25-OH) 39 ng/mL 20-50 Sep 13, 2023 01:18 PM [place] ([facility]) MICROALBUMIN CREATININE RATIO PANEL Specimen Type: URINE No comment entered. Ordering Provider: FLYNN DEJESUS Report Released Date/Time: Sep 08, 2023 04:05 PM Reporting Lab: [address] [address] Performing Lab: [address] [address] MICROALBUMIN/C REATININE RATIO 16.2 mg/g 0-29.9 MICROALBUMIN,Q UANTITATIVE 2.8 mg/dL RR UNAVAIL CREATININE URINE 172.87 mg/dL Sep 13, 2023 01:18 PM [place] ([place]) URINALYSIS Specimen Type: URINE Comment: If Glucose = >500 and Ketones are positive, please alert the Physician. Ordering Provider: FLYNN DEJESUS Report Released Date/Time: Sep 08, 2023 04:05 PM Reporting Lab: [address] [address] Performing Lab: [address] [address] UA COLOR Yellow Yellow UA APPEARANCE Clear Clear UA GLUCOSE NEGATIVE mg/dL Negative UA KETONES NEGATIVE mg/dL Negative UA BLOOD NEGATIVE mg/dL Negative UA PROTEIN 20 mg/dL Negative UA NITRITE NEGATIVE mg/dL Negative UA BILIRUBIN NEGATIVE mg/dL Negative UA SPECIFIC GRAVITY 1.027 H 1.016-1.022 UA pH 5.5 5.0-9.0 UA UROBILINOGEN <2.0 mg/dL <2.0 UA LEUKOCYTE NEGATIVE Negative Sep 13, 2023 01:18 PM [place] ([place]) HEMOGLOBIN A1C PANEL Specimen Type: BLOOD [...] Sep 08, 2023 04:05 PM Reporting Lab: [address] [address] Performing Lab: [address] [address] HEMOGLOBIN A1C 6.6 H 4.0-5.6 Sep 13, 2023 01:18 PM [place] ([facility]) TSH Specimen Type: SERUM No comment entered. Ordering Provider: FLYNN DEJESUS Report Released Date/Time: Sep 08, 2023 04:05 PM Reporting Lab: [address] [address] Performing Lab: [address] [address] TSH 1.81 u[IU]/mL 0.35-5.00 Sep 13, 2023 01:18 PM [place] ([facility]) LIVER FUNCTION Specimen Type: SERUM No comment entered. Ordering Provider: FLYNN DEJESUS Report Released Date/Time: Sep 08, 2023 04:05 PM Reporting Lab: [address] [address] Performing Lab: [address] [address] PROTEIN,TOTAL 7.1 g/dL 6.0-8.3 ALBUMIN 3.8 g/dL 3.5-5.0 ALKALINE PHOSPHATASE 82 U/L 40-150 AST 16 U/L 5-34 ALT 6 U/L BILIRUBIN, TOTAL 0.8 mg/dL 0.2-1.2 Sep 13, 2023 01:18 PM [facility] ([facility]) BASIC METABOLIC PANEL (non-fasting) Specimen Type: SERUM No comment entered. Ordering Provider: FLYNN DEEJSUS Report Released Date/Time: Sep 08, 2023 04:05 PM Reporting Lab: [address] [address] Performing Lab: [facility] [address] [address] UREA NITROGEN 23 mg/dL 7-25 GLUCOSE 120 mg/dL H 65-100 SODIUM 138 mmol/L 135-145 POTASSIUM 3.9 mmol/L 3.5-5.0 CHLORIDE 104 mmol/L 100-110 CO2 25 meq/L 20-30 CREATININE, Serum 1.15 mg/dL 0.50-1.40 eGFR(CKD-EPI 2020) 64 mL/min >60 Sep 13, 2023 01:18 PM [place] ([facility]) LIPID PANEL, NON FASTING Specimen Type: SERUM No comment entered. Ordering Provider: FLYNN DEJESUS Report Released Date/Time: Sep 08, 2023 04:05 PM Reporting Lab: [address] [address] Performing Lab: [address] [address] CHOLESTEROL 181 mg/dL TRIGLYCERIDE 142 mg/dL 0-150 LDL calculated 113 mg/dL 0-129 CHOL/HDL 4.5 HDL CHOLESTEROL 40 mg/dL 40-60 Sep 13, 2023 01:18 PM [place] ([facility]) CBC AND DIFF (AUTO) Specimen Type: BLOOD No comment entered. Ordering Provider: FLYNN DEJESUS Report Released Date/Time: Sep 08, 2023 04:05 PM Reporting Lab: [address] [address] Performing Lab: [address] [address] WBC 8.48 10*3/uL 4.50-11.00 RBC 5.71 10*6/uL H 4.23-5.66 HGB 16.6 g/dL 12.8-17 HCT 49.8 39.2-50.4 MCV 87.2 fL 82-99 MCHC 33.3 g/dL 30.8-35.1 PLT 242 10*3/uL 140-360 RDW-CV 13.7 12.0-16.0 [place], Abs 0.73 10*3/uL 0.30-1.10 MCH 29.1 pg 26.2-32.6 Neut % 71.1 43.7-75.8 Lymph % 18.8 14.0-42.3 Clare % 8.6 5.1-13.7 Eos % 0.6 0.4-6.8 Baso % 0.7 0.1-2.0 Neut, Abs 6.03 10*3/uL 2.20-7.60 Lymph, Abs 1.59 10*3/uL 1.00-3.20 Eos, Abs 0.05 10*3/uL 0.03-0.44 Baso, Abs 0.06 10*3/uL 0.01-0.13 Immature Gran % 0.2 0.0-0.7 Immature Gran, Abs 0.02 10*3/uL 0.00-0.06 Radiology Reports: +/- 30 days of the [...] the Encounter. The data comes from all [place] treatment facilities. Date/Time Radiology Report Provider Source Oct 11, 2023 12:[address] LUMBAR SPINE W/O CONT: MUKUL KAY [id number] -1940 M Ex Date: OCT 11, 2023@12:58 Req Phys: LENORA DEJESUS Pat Loc: [facility]/GO/PACT 1 [facility] (Req'g Loc) Img Loc: [facility]/CT Service: Unknown (Case [id number] COMPLETE) CT LUMBAR SPINE W/O CONT (CT Detailed) CPT:38900 Reason for Study: back pain Clinical History: radiating left leg Report Status: Verified Date Reported: OCT 12, 2023 Date Verified: OCT 12, 2023 Professor Of Spanish E-Sig: Report: CT LUMBAR SPINE W/O CONT HISTORY: back pain COMPARISON: None TECHNIQUE: CT of the lumbar spine performed without contrast. Images were received by the [place] National Teleradiology Program (NTP) for interpretation. RADIATION [...] chronic. Correlate clinically. READING PHYSICIAN: Mir Nuñez -[id number] 10/12/2023 10:03 [facility] National Teleradiology Program [phone] (For Medical Practitioner Use Only) Attention Patients / Veterans: If you have questions or concerns about these test results, please contact your ordering provider or primary care team. Primary Diagnostic Code: SIGNIFICANT ABNORMALITY, ATTN NEEDED Primary Interpreting Staff: RADIOLOGY,OUTSIDE SERVICE, Staff Physician / RADIOLOGY,OUTSIDE SERVICE [place] [facility] Encounter Notes: All associated encounter notes This section contains the clinical notes associated to the Encounter. Date/Time Encounter Note(s) Provider Source Sep 17, 2023 04:12 PM PHARMACY NOTE: LOCAL TITLE: V1 PHARMACY CUSTOMER CARE MEDICATION RENEWAL STANDARD TITLE: PHARMACY NOTE DATE OF NOTE: SEP 17, 2023@16:12 ENTRY DATE: SEP 17, 2023@16:12:31 AUTHOR: ALYSHA PINEDA COSIGNER: URGENCY: STATUS: COMPLETED Date: Aug Division: [place] Pt referred by Pharmacy Call Center for medication renewal: Non-controlled/maintenanc e medication Medications requested: [id number] FUROSEMIDE 20MG TAB Defer to primary care provider To be mailed . Please review and renew if appropriate. *This note was generated by [facility] Pharmacy Customer Care. If you have any questions or need assistance, do not contact this author. Please refer all questions to your local, on-site pharmacy departments. /kasia/ ALYSHA PINEDA CPhT Customs Brokerage Agent, [place]/Pharmacy Customer Care Signed: 09/17/2023 16:12 Receipt Acknowledged By: 09/19/2023 08:09 /es/ TODD DANIELS, RN REGISTERED NURSE 09/19/2023 07:59 /kasia/ ALEXA WALKER NP NURSE PRACTITIONER for ALYSHA KEENAN [facility]L [facility]
--- OUTSIDE RECORDS SUMMARY | 2024-08-07 12:17 | XMS_ITS ---
Author Name [facility] [place] [facility] [place] [facility] [place] Address [address] [place] [address] Care Team Providers Care Mis Director Name Role Phone LENORA DEJESUS Primary Care [...] Jul 31, 2014 MEDICAR E SUPPLEM E [id number] [phone] FR GAMALIEL KAY PATIENT [facility] MEDICARE SUPPLEMEN [facility] ARE SUPP Jul 31, 2014 SUPP [id number] [phone] FR GAMALIEL KAY PATIENT MEDICARE (WNR) MEDICARE (M) PART A Jan 29, 2004 PART A [id number] [phone] FR GAMALIEL KAY PATIENT MEDICARE (WNR) MEDICARE (M) PART B Jan 29, 2004 PART B [id number] [phone] FR GAMALIEL KAY PATIENT [facility] (WNR) MEDICARE ADVANTAGE [facility] (R) Jul 31, 2023 [id number] [phone] RAHUL GAMALIEL PATIENT [facility] MCR (WNR) MEDICARE ADVANTAGE MCR (WNR) Jul 31, 2023 [id number] RAHULFR GAMALIEL MACHADO PATIENT Selected Encounter This section includes the information on record at [place] for the Encounter. Date/Time Encounter Type Encounter Description Reason Pro vider Source Aug 16, 2023 12:00 PM Outpatient Encounter COMMUNITY CARE CONSULT IHE Encounter Template Text not used by [place] Plan of Treatment: Future Appointments (+ 6 months) and Future Tests (+/- 45 days) The Plan of Treatment section includes future care activities for the patient from all [place] treatmentfacilities. This section includes future appointments and [...] - MEDICINE [place] [facility] [place] [facility] Sep 22, 2023 01:00 PM AMBULATORY - MEDICINE [facility] Oct 03, 2023 11:30 AM AMBULATORY - MEDICINE [place] [facility] [place] [facility] Oct 06, 2023 03:00 PM AMBULATORY - PSYCHIATRY [place] [facility] [place] [facility] Oct 10, 2023 02:00 PM AMBULATORY - MEDICINE [facility] Oct 11, 2023 01:00 PM AMBULATORY - NONE [facility] [place] [facility] Oct 16, 2023 02:00 PM AMBULATORY - MEDICINE [facility] [place] [facility] Oct 24, 2023 11:30 AM AMBULATORY - MEDICINE [place] [facility] [place] [facility] Oct 26, 2023 01:30 PM AMBULATORY - NEUROLOGY [facility] [place] [facility] Nov 13, 2023 01:00 PM AMBULATORY - MEDICINE [facility] [place] [facility] December 11, 2023 10:30 AM AMBULATORY - MEDICINE [facility] [place] [facility] December 20, 2023 09:00 AM AMBULATORY - MEDICINE [place] [facility] [place] [facility] December 20, 2023 02:00 PM AMBULATORY - MEDICINE [facility] ([facility]) Jan 08, 2024 10:30 AM AMBULATORY - MEDICINE [place] [facility] [place] [facility] Jan 11, 2024 01:00 PM AMBULATORY - MEDICINE [place] [facility] [place] [facility] Jan 30, 2024 01:00 PM AMBULATORY - MEDICINE [place] [facility] [place] [facility] Lab Results: +/- 30 days [...] Range Comment Sep 13, 2023 01:18 PM [facility] ([facility]) VITAMIN D (25-OH) Specimen Type: SERUM No comment entered. Ordering Provider: FLYNN DEJESUS Report Released Date/Time: Sep 08, 2023 04:05 PM Reporting Lab: [place] [facility] [place] [address] [address] Per[facility] [address] [address] VITAMIN D (25-OH) 39 ng/mL 20-50 Sep 13, 2023 01:18 PM [facility] ([facility]) VITAMIN B12 Specimen Type: SERUM No comment entered. Ordering Provider: FLYNN DEJESUS Report Released Date/Time: Sep 08, 2023 04:05 PM Reporting Lab: [place] [facility] [place] [facility] [address] [facility] [address] Performing Lab: [place] [facility] [place] [address] [address] VITAMIN B12 359 pg/mL 200-900 Sep 13, 2023 01:18 PM [facility] ([facility]) MICROALBUMIN CREATININE RATIO PANEL Specimen Type: URINE No comment entered. Ordering Provider: FLYNN DEJESUS Report Released Date/Time: Sep 08, 2023 04:05 PM Reporting Lab[facility] [address] [address] Performing Lab: [place] [address] [address] MICROALBUMIN/C REATININE RATIO 16.2 mg/g 0-29.9 MICROALBUMIN,Q UANTITATIVE 2.8 mg/dL RR UNAVAIL CREATININE URINE 172.87 mg/dL Sep 13, 2023 01:18 PM DARYL ([facility]) HEMOGLOBIN A1C PANEL Specimen Type: BLOOD [...] Sep 08, 2023 04:05 PM Reporting Lab: [address] [address] Performing Lab: [address] HEMOGLOBIN A1C 6.6 H 4.0-5.6 Sep 13, 2023 01:18 PM [facility] ([facility]) URINALYSIS Specimen Type: URINE Comment: If Glucose = >500 and Ketones are positive, please alert the Physician. Ordering Provider: FLYNN DEJESUS Report Released Date/Time: Sep 08, 2023 04:05 PM Reporting Lab: [address] [address] Performing Lab: [address] [address] UA COLOR Yellow Yellow UA APPEARANCE Clear [...] Sep 08, 2023 04:05 PM Reporting Lab: [address] [address] Performing Lab: [address] TSH 1.81 u[IU]/mL 0.35-5.00 Sep 13, 2023 01:18 PM [facility] ([facility]) BASIC METABOLIC PANEL (non-fasting) Specimen Type: SERUM No comment entered. Ordering Provider: FLYNN DEJESUS Report Released Date/Time: Sep 08, 2023 04:05 PM Reporting Lab: [address] [address] Performing Lab: [address] [address] UREA NITROGEN 23 mg/dL 7-25 GLUCOSE 120 mg/dL H 65-100 SODIUM 138 mmol/L 135-145 POTASSIUM 3.9 mmol/L 3.5-5.0 CHLORIDE 104 mmol/L 100-110 CO2 25 meq/L 20-30 CREATININE, Serum 1.15 mg/dL 0.50-1.40 eGFR(CKD-EPI 2020) 64 mL/min >60 Sep 13, 2023 01:18 PM [facility] ([facility]) LIVER FUNCTION Specimen Type: SERUM No comment entered. Ordering Provider: FLYNN DEJESUS Report Released Date/Time: Sep 08, 2023 04:05 PM Reporting Lab: [address] [address] Performing Lab: [address] PROTEIN,TOTAL 7.1 g/dL 6.0-8.3 ALBUMIN 3.8 g/dL 3.5-5.0 ALKALINE PHOSPHATASE 82 U/L 40-150 AST 16 U/L 5-34 ALT 6 U/L BILIRUBIN, TOTAL 0.8 mg/dL 0.2-1.2 Sep 13, 2023 01:18 PM [facility] ([facility]) LIPID PANEL, NON FASTING Specimen Type: SERUM No comment entered. Ordering Provider: FLYNN DEJESUS Report Released Date/Time: Sep 08, 2023 04:05 PM Reporting Lab: [address] [address] Performing Lab: [address] [address] CHOLESTEROL 181 mg/dL TRIGLYCERIDE 142 mg/dL 0-150 LDL calculated 113 mg/dL 0-129 CHOL/HDL 4.5 HDL CHOLESTEROL 40 mg/dL 40-60 Sep 13, 2023 01:18 PM [facility] ([facility]) CBC AND DIFF (AUTO) Specimen Type: BLOOD No comment entered. Ordering Provider: FLYNN DEJESUS Report Released Date/Time: Sep 08, 2023 04:05 PM Reporting Lab: [address] [address] Performing Lab: [address] [address] WBC 8.48 10*3/uL 4.50-11.00 RBC 5.71 10*6/uL H 4.23-5.66 HGB 16.6 g/dL 12.8-17 HCT 49.8 39.2-50.4 MCV 87.2 fL 82-99 MCHC 33.3 g/dL 30.8-35.1 PLT 242 10*3/uL 140-360 RDW-CV 13.7 12.0-16.0 [place], Abs 0.73 10*3/uL 0.30-1.10 MCH 29.1 pg 26.2-32.6 Neut % 71.1 43.7-75.8 Lymph % 18.8 14.0-42.3 [place] % 8.6 5.1-13.7 Eos % 0.6 0.4-6.8 [...] Encounter. Date/Time Encounter Note(s) Provider Source Aug 16, 2023 12:00 PM NONVA CONSULT: LOCAL TITLE: COMMUNITY CARE-CONSULT RESULT NOTE STANDARD TITLE: NONVA CONSULT DATE OF NOTE: AUG 16, 2023@12:00 ENTRY DATE: AUG 30, 2023@08:06:37 AUTHOR: THANH MARCELO EXP COSIGNER: URGENCY: STATUS: COMPLETED VistA Imaging - Scanned Document SCANNED DOCUMENT SIGNATURE NOT REQUIRED Electronically Filed: 08/30/2023 by: THANH CARTER [facility]
--- OUTSIDE RECORDS SUMMARY | 2024-08-07 12:17 | XMS_ITS | Encounter Summary ---
Author Name [facility] [place] [facility] [place] Address [address] [place] [id number] Care Team Providers Care Chief Client Officer Name Role Phone LENORA DEJESUS Primary Care [...] Jul 31, 2014 MEDICAR E SUPPLEM E [id number] [phone] FR GAMAILEL KAY PATIENT [facility] MEDICARE SUPPLEMEN EVANGELISTA MEDIC ARE SUPP Jul 31, 2014 SUPP [id number] [phone] FR GAMALIEL KAY PATIENT MEDICARE (WNR) MEDICARE (M) PART A Jan 29, 2004 PART A [id number] [phone] FR GAMALIEL KAY PATIENT MEDICARE (WNR) MEDICARE (M) PART B Jan 29, 2004 PART B [id number] [phone] FR GAMALIEL KAY PATIENT [facility] (WNR) MEDICARE ADVANTAGE [facility] ([facility]) Jul 31, 2023 [id number] [phone] FR GAMALIEL KAY PATIENT [facility] (WNR) MEDICARE ADVANTAGE [facility] (WNR) Jul 31, 2023 [id number] [phone] FR GAMALIEL KAY PATIENT Selected Encounter This section includes the information on record at [place] for the Encounter. Date/Time Encounter Type Encounter Description Reason Provider Source Sep 22, 2023 01:00 PM OFFICE O/P EST HI 40 MIN PRIMARY CARE/MEDICINE ICD-10-CM G20.B1 Parkinson's dis with dyskinesia, 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 fluctuations TOMASMICHOACANOLEANDRADAVID SANCHEZ Kurt [facility] Encounter Template Text not used by [place] Assessments - Encounter Diagnoses This section includes the primary and secondary diagnoses documented for the Encounter. Date/Time Primary/Secondary Diagnosis Diagnosis Name Provider Source Sep 27, 2023 11:07 AM PRIMARY Parkinson's dis with dyskinesia, 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 fluctuations ANJELICALEANDRADAVID SANCHEZ Kurt [facility] ([facility]) Sep 27, 2023 11:07 AM SECONDARY Essential (primary) hypertension ANJELICALEANDRADAVID SANCHEZ Kurt [facility] ([facility]) Sep 27, 2023 11:07 AM SECONDARY Low back pain, unspecified ANJELICALEANDRADAVID SANCHEZ Kurt [facility] ([facility]) Sep 27, 2023 11:07 AM SECONDARY Personal history of malignant melanoma of skin ANJELICAMARCELINANENA SANCHEZ Kurt [facility] ([facility]) Sep 27, 2023 11:07 AM SECONDARY Presence of cardiac pacemaker ANJELICALEANDRADAVID SANCHEZ Kurt [facility] ([facility]) Sep 27, 2023 11:07 AM SECONDARY Type 2 diabetes mellitus without complications ANJELICAMARCELINANENA SANCHEZ Kurt [facility] ([facility]) Sep 27, 2023 11:07 AM SECONDARY Unspecified atrial fibrillation ANJELICAMARCELINANENA SANCHEZ Kurt [facility] ([facility]) Plan of Treatment: Future Appointments (+ 6 months) and Future Tests (+/- 45 days) The Plan of Treatment section includes future care activities for the patient from all [place] treatmentfacilities. This section includes future appointments and future orders which are active, pending or scheduled. Future Appointments This section includes appointments that were scheduled to occur 6 months from the date of the Encounter, up to a maximum of 20 appointments. The data comes from all [place] treatment facilities. Appointment Date/Time Appointment Type Appointme nt Facility Name Oct 03, 2023 11:30 AM AMBULATORY [facility] MEDICINE [facility] [place] [facility] Oct 06, 2023 03:00 PM AMBULATORY - PSYCHIATRY [facility] [place] [facility] Oct 10, 2023 02:00 PM AMBULATORY - MEDICINE [facility] ([facility]) Oct 11, 2023 01:00 PM AMBULATORY - NONE [facility] [place] [facility] Oct 16, 2023 02:00 PM AMBULATORY - MEDICINE [facility] [place] [facility] Oct 24, 2023 11:30 AM AMBULATORY - MEDICINE [facility] [place] [facility] Oct 26, 2023 01:30 PM AMBULATORY - NEUROLOGY [facility] [place] [facility] Nov 13, 2023 01:00 PM AMBULATORY - MEDICINE [facility] [place] [facility] December 11, 2023 10:30 AM AMBULATORY - MEDICINE [facility] [place] [facility] December 20, 2023 09:00 AM AMBULATORY - MEDICINE [facility] [place] [facility] December 20, 2023 02:00 PM AMBULATORY - MEDICINE [facility] ([facility]) Jan 08, 2024 10:30 AM AMBULATORY - MEDICINE [facility] [place] [facility] Jan 11, 2024 01:00 PM AMBULATORY - MEDICINE [facility] [place] [facility] Jan 30, 2024 01:00 PM AMBULATORY - MEDICINE [facility] [place] [facility] Active, Pending, and Scheduled Orders This section includes a listing of several types of active, pending, and scheduled orders, including clinic medications orders, diagnostic test orders, procedure orders and consult orders; where the start date of the order is 45 days before the date of the Encounter or 45 days after the date of theEncounter. The data comes from all [place] treatment facilities. Test Date/Time Test Type Test Details Facility Name 2023 01:37 PM Consult Order COMMUNITY CARE-NEUROLOGY Cons Head Of Ict's Choice [facility] [place] [facility] Lab Results: +/- 30 days of the encounter This section includes the Chemistry and Hematology Lab Results on record with [place] for the patient. Radiology Reports and Pathology Reports are provided separately, in subsequent sections. Lab Results This section contains the Chemistry/Hematology Results that were resulted 30 days before or 30 daysafter the date of the Encounter. Date/Time Source Result Type Result - Unit Interpretation Reference Range Comment Sep 13, 2023 01:18 PM [facility] ([facility]) MICROALBUMIN CREATININE RATIO PANEL Specimen Type: URINE No comment entered. Ordering Provider: FLYNN DEJESUS Report Released Date/Time: Sep 08, 2023 04:05 PM Reporting Lab: [address] [address] Performing Lab: [address] [address] MICROALBUMIN/C REATININE RATIO 16.2 mg/g 0-29.9 MICROALBUMIN,Q UANTITATIVE 2.8 mg/dL RR UNAVAIL CREATININE URINE 172.87 mg/dL Sep 13, 2023 01:18 PM [facility] ([facility]) VITAMIN D (25-OH) Specimen Type: SERUM No comment entered. Ordering Provider: FLYNN DEJESUS Report Released Date/Time: Sep 08, 2023 04:05 PM Reporting Lab: [address] [address] Performing Lab: [address] [address] VITAMIN D (25-OH) 39 ng/mL 20-50 Sep 13, 2023 01:18 PM [facility] ([facility]) URINALYSIS Specimen Type: URINE Comment: If Glucose = >500 and Ketones are positive, please alert the Physician. Ordering Provider: FLYNN DEJESUS Report Released Date/Time: Sep 08, 2023 04:05 PM Reporting Lab: [address] [address] Performing Lab: [address] [address] UA COLOR Yellow Yellow UA APPEARANCE Clear [...] Sep 08, 2023 04:05 PM Reporting Lab: [address] [address] Performing Lab: [address] [address] VITAMIN B12 359 pg/mL 200-900 Sep 13, 2023 01:18 PM [facility] ([facility]) TSH Specimen Type: SERUM No comment entered. Ordering Provider: FLYNN DEJESUS Report Released Date/Time: Sep 08, 2023 04:05 PM Reporting Lab: [address] [address] Performing Lab: [address] [address] TSH 1.81 u[IU]/mL 0.35-5.00 Sep 13, 2023 [...] Sep 08, 2023 04:05 PM Reporting Lab: [address] [address] Performing Lab: [address] [address] HEMOGLOBIN A1C 6.6 H 4.0-5.6 Sep 13, 2023 01:18 PM [facility] ([facility]) LIVER FUNCTION Specimen Type: SERUM No comment entered. Ordering Provider: FLYNN DEJESUS Report Released Date/Time: Sep 08, 2023 04:05 PM Reporting Lab: [address] [address] Performing Lab: [address] [address] PROTEIN,TOTAL 7.1 g/dL 6.0-8.3 ALBUMIN 3.8 g/dL 3.5-5.0 ALKALINE PHOSPHATASE 82 U/L 40-150 AST 16 U/L 5-34 ALT 6 U/L BILIRUBIN, TOTAL 0.8 mg/dL 0.2-1.2 Sep 13, 2023 01:18 PM [facility] ([facility]) CBC AND DIFF (AUTO) Specimen Type: BLOOD No comment entered. Ordering Provider: FLYNN DEJESUS Report Released Date/Time: Sep 08, 2023 04:05 PM Reporting Lab: [address] [address] Performing Lab: [address] [address] WBC 8.48 10*3/uL 4.50-11.00 RBC 5.71 10*6/uL H 4.23-5.66 HGB 16.6 g/dL 12.8-17 HCT 49.8 39.2-50.4 MCV 87.2 fL 82-99 MCHC 33.3 g/dL 30.8-35.1 PLT 242 10*3/uL 140-360 RDW-CV 13.7 12.0-16.0 Jennings, Abs 0.73 10*3/uL 0.30-1.10 MCH 29.1 pg 26.2-32.6 Neut % 71.1 43.7-75.8 Lymph % 18.8 14.0-42.3 Jennings % 8.6 5.1-13.7 Eos % 0.6 0.4-6.8 Baso % 0.7 0.1-2.0 Neut, Abs 6.03 10*3/uL 2.20-7.60 Lymph, Abs 1.59 10*3/uL 1.00-3.20 Eos, Abs 0.05 10*3/uL 0.03-0.44 Baso, Abs 0.06 10*3/uL 0.01-0.13 Immature Gran % 0.2 0.0-0.7 Immature Gran, Abs 0.02 10*3/uL 0.00-0.06 Sep 13, 2023 01:18 PM [facility] ([facility]) LIPID PANEL, NON FASTING Specimen Type: SERUM No comment entered. Ordering Provider: FLYNN DEJESUS Report Released Date/Time: Sep 08, 2023 04:05 PM Reporting Lab: [address] [address] Performing Lab: [address] [address] CHOLESTEROL 181 mg/dL TRIGLYCERIDE 142 mg/dL 0-150 LDL calculated 113 mg/dL 0-129 CHOL/HDL 4.5 HDL CHOLESTEROL 40 mg/dL 40-60 Sep 13, 2023 01:18 PM [facility] ([facility]) BASIC METABOLIC PANEL (non-fasting) Specimen Type: SERUM No comment entered. Ordering Provider: FLYNN DEJESUS Report Released Date/Time: Sep 08, 2023 04:05 PM Reporting Lab: [address] [address] Performing Lab: [address] [address] UREA NITROGEN 23 mg/dL 7-25 GLUCOSE 120 mg/dL H 65-100 SODIUM 138 mmol/L 135-145 POTASSIUM 3.9 mmol/L 3.5-5.0 CHLORIDE 104 mmol/L 100-110 CO2 25 meq/L 20-30 CREATININE, Serum 1.15 mg/dL 0.50-1.40 eGFR(CKD-EPI 2020) 64 mL/min >60 Vital Signs: All taken on the encounter date This section contains inpatient and outpatient Vital Signs collected on the date of the Encounter. Date/Time Temperature Pulse Blood Pressure Respiratory Rate SP02 Pain Height Weight Body Mass Index Source Sep 22, 2023 01:05 PM 98.2 90 123/83 20 94 7 207 35 [place] ([facility]) Social History: Smoking Status (Most current) and Tobacco Use (All prior to encounter date) This section includes the most current, and the historical, smoking and tobacco- related health factors from the [place] facility where the Encounter took place. Current Smoking Status This section includes the most current smoking, or tobacco-related health factor, from the [place] facility where the Encounter took place. Date/Time Current Smoking Status Comment Jo william Sep 22, 2023 01:00 PM VA-TOBACCO NEVER USED [facility] ([facility]) Tobacco Use History This section includes a history of the smoking, or tobacco-related health factors, that were collected on or before the date of the Encounter. The data comes from the [place] facility where the Encounter took place. Date/Time Smoking Status/Tobacco Use Comment F acility December 02, 2022 11:00 AM VA-TOBACCO NEVER USED [facility] ([facility]) Apr 15, 2022 11:30 AM VA-TOBACCO NEVER USED [facility] ([facility]) Apr 07, 2021 11:00 AM VA-TOBACCO NEVER USED [facility] ([facility]) Radiology Reports: +/- 30 days of the [...] the Encounter. The data comes from all [place] treatment facilities. Date/Time Radiology Report Provider Source Oct 11, 2023 12:[address] LUMBAR SPINE W/O CONT: MUKUL KAY [id number] -[id number] M Exm Date: OCT 11, 2023@12:58 Req Phys: LENORA DEJESUS Pat Loc: [facility]/GO/PACT 1 WH (Req'g Loc) Img Loc: [facility]/CT Service: Unknown (Case [id number] COMPLETE) CT LUMBAR SPINE W/O CONT (CT Detailed) CPT:68620 Reason for Study: back pain Clinical History: radiating left leg Report Status: Verified Date Reported: OCT 12, 2023 Date Verified: OCT 12, 2023 Railroad [employer] Director E-Sig: Report: CT LUMBAR SPINE W/O CONT HISTORY: back pain COMPARISON: None TECHNIQUE: CT of the lumbar spine performed without contrast. Images were received by the [place] National Teleradiology Program (NTP) for interpretation. RADIATION [...] chronic. Correlate clinically. READING PHYSICIAN: Mir Nuñez -[phone] 10/12/2023 10:03 [facility] National Teleradiology Program [phone] (For Medical Practitioner Use Only) Attention Patients / Veterans: If you have questions or concerns about these test results, please contact your ordering provider or primary care team. Primary Diagnostic Code: SIGNIFICANT ABNORMALITY, ATTN NEEDED Primary Interpreting Staff: RADIOLOGY,OUTSIDE SERVICE, Staff Physician / RADIOLOGY,OUTSIDE SERVICE [facility] Encounter Notes: All associated encounter notes This section contains the clinical notes associated to the Encounter. Date/Time Encounter Note(s) Provider Source Sep 22, 2023 01:11 PM PHYSICIAN NOTE: LOCAL TITLE: NOTE STANDARD TITLE: PHYSICIAN NOTE DATE OF NOTE: SEP 22, 2023@13:11 ENTRY DATE: SEP 22, 2023@13:11:44 AUTHOR: LENORA DEJESUS EXP COSIGNER: URGENCY: STATUS: COMPLETED PRIMARY CARE VISIT MUKUL MARILYN KAY, is a 82 yo WHITE MALE Jarratt who presents at the [facility]. TYPE OF VISIT: 82-year-old Jarratt with significant Charcot foot disease, Parkinson's disease, lsf-xzjjpyn-blsetdalk diabetes, HTN, atrial fibrillation/sick sinus syndrome status post pacemaker, tremors,and history of lymphoma, BCC, and malignant melanoma presented to the outpatient clinic in regular follow-up. Last seen 02022, REcent labs done . Last A1c 6.6 Left sided pain in buttock when stands or sits. better when moving around. History hernuations in back but never botered until 2 weeks Recent labs and all medications were reconciled during this visit. Nurse Midwife/Clinical Instructor saw him recently . Uses special shoes. She examined area of concer left foot, and appllied dressing, no skin breakdown Needs new insoles for special shoes HEALTHCARE PROVIDERS: PCP: [place] Cardiology: [facility] Derm: [place] Wound clinic: [facility] Social Hx: The patient has a roommate. No alcohol, nicotine, MJ. No regular exercise. Social Hx: MARITAL STATUS - HISTORY: PERIOD OF SERVICE - Y FROM May TO Jul COMBAT SERVICE INDICATED: No VITAL SIGNS: Temperature 98.2 F [36.8 C] (09/22/2023 13:05) Blood Pressure 123/83 (09/22/2023 13:05) Pulse 90 (09/22/2023 13:05) Respiration 20 (09/22/2023 13:05) Pain 7 (09/22/2023 13:05) BMI BMI: 34.5 Weight 207 lb [93.89 kg] (09/22/2023 13:05) Pulse Oximetry 94% (09/22/2023 13:05) ASSISTIVE DEVICES: REVIEW OF SYSTEMS: CONSTITUTIONAL: No fevers, chills, weight loss/gain ENT: No sore throat, sneezing, congestion, rhinorrhea, anosmia, or ageusia. CARDIOVASCULAR: No chest pain, palpitations, or increased pedal edema RESPIRATORY: No SOB, cough, sputum, wheeze. GASTROINTESTINAL: Denies abd pain, N/V/D. No melena or hematochezia. No tenesmus or constipation. GENITOURINARY: No burning micturition. No urinary frequency or urgency. No nocturia. MUSCULOSKELETAL: ++back pain, PSYCHIATRIC: No new anxiety or depression. No sleep disturbance. NEUROLOGIC: No headaches, dizziness, ++chronic foot issues with charcot disease. ++peripheral neuropathy. EXAMINATION General: Well-appearing Jarratt in no obvious distress. Mental Status: Alert and oriented x4. Head: Normocephalic. Eyes: PERRLA. EOMI. Anicteric sclerae. ENT: Moist oral mucosa. Posterior pharynx unremarkable Neck: Supple. No JVD. No LAD. No bruit. Lungs: CTA. Normal chest excursion. Eupneic respirations. CV: Heart irregularly irregular rate and rhythm NL S1S2 no S3 or murmur ABD: Benign, soft, normal active bowel sounds no rebound or referred pain, no HSM, central adiposity limits exam EXT: R>L lower legs w/ generalized edema 1-2+ pitting, specialty shoes on with stockings CDI. Charcot foot disease, left foot wound examined, skin intact Neuro: grossly intact Derm: +hemosiderin staining to BLLE Get up and go slow and antalgic (X )with walker, using wheelchair for long distance in clinic ALLERGIES: ========= LISINOPRIL >> HEALTH MAINTENANCE PREVENTIVE MEDICINE GOALS High Risk for HYPOglycemia Jun 04 Melanoma Follow-up Jun 20 Medication Reconciliation DUE NOW COVID-19 Immunization DUE NOW ASSESSMENT/PLAN: Active problems - Computerized Problem List is the source for the followin. Basal Cell Carcinoma of Skin ([facility] [id number]) 2. Parkinson's disease 3. Diabetes Mellitus Type 2 ([facility] [id number]) 4. HTN - Hypertension ([facility] [id number]) 5. History of malignant melanoma of the skin 6. AF- Atrial Fibrillation ([facility] [id number]) 7. Permanent cardiac pacemaker 8. Lymphedema of leg 9. Tremor Assessment/plan: Active problems - Computerized Problem List is the source for the following: =Sciatica : no recent imaging, known history of degenerative disc disease. Symptoms are worsening . Will arange imaging. == AFIB - Anticoagulated w/DOAC, on digoxin and rate controlled w/BB - Followed by non-[facility] Cardiology, RX through [facility] == PACEMAKER - r/t SSS 11/2020 - Followed by non-VA Fingerprint Classifier == DIABETES - A1c stable at 6.6% Wll place diabetes educatio for a CGM == PARKINSON'S DISEASE - Followed by [facility] Neurology - Declines OT consult for hand tremor impacting ADLs/IADLs =As per recet neuro: Has tried the gabapentin, but felt that it actually made histremors worse. It was also associated with fatigue, na depisodes of dizziness.He has in the past been on low-dose sinemet (25/100mg tid), but did not notice it being of any benefit. == RIGHT LEG LYMPHEDEMA - Chronic - s/p R Leg injury soft tissue injury s/p fall > 10 years ago w/residual complications w/lymphedema - Followed by lymphedema clinic in [place] == FOOT WOUNDS/ CHarcot Foot - Bilateral feet, L Great Toe and R Ball of foot - Chronic - Followed by Wound Clinic >2 years == BCC == H/O Melanoma to posterior R Ear and R Lower Leg - Previously followed by [facility] D[facility] at [facility] - Upcoming appt at [facility], 10/02/23 Healthcare Maintenance: Colon Cancer Screening: - Declines. FOLLOW UP: RTC Below & sooner PRN UPCOMING APPOINTMENTS: 10/16/2023 14:00 [facility]/GO/DERMATOLGY A 10/26/2023 13:30 C[facility]/NO/NEUROLOGY 06/25/2024 14:30 [facility]/OPTOMETRY/DONALDSON/ 40 minutes spent in patient evaluation, data review, and patient education. All medications were reconciled during this visit. No barriers; Patient understands and agrees to current treatment plan. If pt has any questions, concerns, or changes in current health status he/she will call or come in to the [facility]. Melanoma Follow-up: Patient is already being followed by Dermatology specifically for melanoma F/U. LAST Appointment: 2023 ? Exact date is unknown Medication Reconciliation: Outpatient: Has the patient been taking medications as documented in the EMLR? YES: The patient has been taking medications as documented in the EMLR. Essential Medication List for Review used to complete this medication reconciliation. INCLUDED IN THIS LIST: Alphabetical list of active outpatient prescriptions dispensed from this [place] (local) and dispensed from another [place] or [facility] facility (remote) as well as inpatient orders (local, pending and active), local clinic medications, locally documented non-VA medications, and local prescriptions that have or been discontinued in the past 90 days. - All changes in medications, including all non-VA/Herbal/OTC medications were entered into CPRS. - If there were any medications the patient should no longer take, they were discontinued. - The patient/caregiver was instructed to update this list, discard old lists, and take this list to the next appointment, whether with a VA or non-VA provider. High Risk for HYPOglycemia: Not reported. Hypoglycemic screen clinical decision: No change in glycemic management at this time. Comment: order CGM /es/ LENORA DEJESUS MD PHYSICIAN Signed: 09/27/2023 11:07 LENORA DEJESUS ([facility]) Sep 22, 2023 01:08 PM PREVENTIVE MEDICINE NURSING NOTE: LOCAL TITLE: CLINICAL REMINDERS/NURSING STANDARD TITLE: PREVENTIVE MEDICINE NURSING NOTE DATE OF NOTE: SEP 22, 2023@13:08 ENTRY DATE: SEP 22, 2023@13:08:06 AUTHOR: CHRISTOPHER COLLINS COSIGNER: URGENCY: STATUS: COMPLETED RHS Screen: RHS Screen Session Format: Face to Face Environmental Check Upon inquiry, the individual reports that the environment is safe to proceed. Informed Consent to Screen and Document The individual consents to proceed with screening. The individual consents to documentation of responses. PRIMARY SCREEN: In the past 12 months, how often did a current or former intimate partner (e.g., boyfriend, girlfriend, , , sexual partner): 1. Scream or curse at you Never 2. Insult or talk down to you Never 3. Threaten you with harm Never 4. Physically hurt you Never 5. Force or pressure you to have sexual contact against your will, or when you were unable to say no Never ?? The HITS tool (items 1-4 above) is US copyright protected by Jony Henriquez MD, and the user has full rights to use it throughout the [place] system. PRIMARY SCREEN RESULT: The Primary Screen is NEGATIVE. The individual answered never to all forms of IPV above (i.e., answered never to all 5 items) The individual accepts education and/or resources: No EDUCATION: The individual indicated readiness to learn. Education offered during this session as noted above. The individual indicated understanding by asking relevant questions and making appropriate comments. No barriers to learning were observed or identified. Suicide Screen: C-SSRS Screening [place] Suicide Severity Rating Scale (C-SSRS) screener 1. Over the past month, have you wished you were or wished you could go to sleep and not wake up? No 2. Over the past month, have you had any actual thoughts of killing yourself? No 3. Over the past month, have you been thinking about how you might do this? Response not required due to responses to other questions. 4. Over the past month, have you had these thoughts and had some intention of acting on them? Response not required due to responses to other questions. 5. Over the past month, have you started to work out or worked out the details of how to kill yourself? Response not required due to responses to other questions. 6. If yes, at any time in the past month did you intend to carry out this plan? Response not required due to responses to other questions. 7. In your lifetime, have you ever done anything, started to do anything, or prepared to do anything to end your life (for example, collected pills, obtained a gun, gave away valuables, went to the roof but didn't jump)? No 8. If YES, was this within the past 3 months? Response not required due to responses to other questions. Homelessness/Food Insecurity Screen: In the past 2 months, have you been living in stable housing that you own, rent, or stay in as part of a household? Yes - Living in stable housing. Are you worried or concerned that in the next 2 months you may NOT have stable housing that you own, rent, or stay in as part of a household? No - Not worried about housing near future The reports the following: Within the past 12 months, you worried whether your food would run out before you got money to buy more. Never true Within the past 12 months, the food you bought just didn't last and you didn't have money to get more. Never true Depression Screening: Perform PHQ-2 A PHQ-2 screen was performed. The score was 2 which is a negative screen for depression. Over the past two weeks, how often have you been bothered by the following problems? 1. Little interest or pleasure in doing things Several days 2. Feeling down, depressed, or hopeless Several days Falls & Incontinence Screen: Falls Screen: 4. No falls within the past year. Incontinence Screen No incontinence. Tobacco Use Screening: The patient has never used tobacco. Alcohol Use Screen (AUDIT-C): Alcohol Screen: SCREEN FOR ALCOHOL (AUDIT-C) An alcohol screening test (AUDIT-C) was negative (score=1). 1. How often did you have a drink containing alcohol in the past year? Consider a drink to be a 12 ounce can or bottle of regular beer, 8 ounces of malt liquor, a 5 ounce glass of table wine, or a 1.5 ounce shot of liquor (like scotch, gin, or vodka). Monthly or less 2. How many drinks containing alcohol did you have on a typical day when you were drinking in the past year? One or two drinks 3. How often did you have six or more drinks on one occasion in the past year? Never Sexual Orientation: The patient thinks of their sexual orientation as: Straight or Heterosexual COVID-19 Immunization: Defer vaccine, reassess in 3 months Reason: will fax dates to clinic /kasia/ CHRISTOPHER COLLINS LPN LICENSED PRACTICAL NURSE Signed: 09/22/2023 13:12 CHRISTOPHER COLLINS ([facility])
--- OUTSIDE RECORDS SUMMARY | 2024-08-07 12:17 | XMS_ITS ---
Author Name [facility] Address [address] [place] [address] Care Team Providers Care Lead Former Name Role Phone LENORA DEJESUS Primary Care [...] Jul 31, 2014 MEDICAR E SUPPLEM E [id number] [phone] FR GAMALIEL KAY PATIENT [facility] MEDICARE SUPPLEMEN [facility] ARE SUPP Jul 31, 2014 SUPP [id number] [phone] FR GAMALIEL KAY PATIENT MEDICARE (WNR) MEDICARE (M) PART A Jan 29, 2004 PART A [id number] [phone] FR GAMALIEL KAY PATIENT MEDICARE (WNR) MEDICARE (M) PART B Jan 29, 2004 PART B [id number] [phone] FR GAMALIEL KAY PATIENT [facility] (WNR) MEDICARE ADVANTAGE [facility] (R) Jul 31, 2023 [id number] RAHUL GAMALIEL PATIENT [facility] MCR (WNR) MEDICARE ADVANTAGE MCR (WNR) Jul 31, 2023 [id number] RAHULFR GAMALIEL MACHADO PATIENT Selected Encounter This section includes the information on record at [facility] for the Encounter. Date/Time Encounter Type Encounter Description Reason Pro vider Source Sep 19, 2023 12:00 PM Outpatient Encounter COMMUNITY CARE CONSULT [facility] Encounter Template Text not used by [facility] Plan of Treatment: Future Appointments (+ 6 months) and Future Tests (+/- 45 days) The Plan of Treatment section includes future care activities for the patient from all [place] treatmentfacilities. This section includes future appointments and future orders which are active, pending or scheduled. Future Appointments This section includes appointments that were scheduled to occur 6 months from the date of the Encounter, up to a maximum of 20 appointments. The data comes from all [place] treatment facilities. Appointment Date/Time Appointment Type Appointme nt Facility Name Sep 22, 2023 01:00 PM AMBULATORY - MEDICINE [facility] Oct 03, 2023 11:30 AM AMBULATORY - MEDICINE [facility] [place] [facility] Oct 06, 2023 03:00 PM AMBULATORY - PSYCHIATRY [facility] [place] [facility] Oct 10, 2023 02:00 PM AMBULATORY - MEDICINE [facility] Oct 11, 2023 01:00 PM AMBULATORY - NONE [facility] [place] [facility] Oct 16, 2023 02:00 PM AMBULATORY - MEDICINE [facility] [place] [facility] Oct 24, 2023 11:30 AM AMBULATORY - MEDICINE [place] [facility] [place] [facility] Oct 26, 2023 01:30 PM AMBULATORY - NEUROLOGY [facility] [place] [facility] Nov 13, 2023 01:00 PM AMBULATORY - MEDICINE [facility] [place] [facility] December 11, 2023 10:30 AM AMBULATORY - MEDICINE [facility] [place] [facility] December 20, 2023 09:00 AM AMBULATORY - MEDICINE [facility] [place] [facility] December 20, 2023 02:00 PM AMBULATORY - MEDICINE [facility] Jan 08, 2024 10:30 AM AMBULATORY - MEDICINE [facility] [place] [facility] Jan 11, 2024 01:00 PM AMBULATORY - MEDICINE [facility] [place] [facility] Jan 30, 2024 01:00 PM [facility] Active, Pending, and Scheduled Orders This section includes a listing of several types of active, pending, and scheduled orders, including clinic medications orders, diagnostic test orders, procedure orders and consult orders; where the start date of the order is 45 days before the date of the Encounter or 45 days after the date of theEncounter. The data comes from all [place] treatment facilities. Test Date/Time Test Type Test Details Facility Name 2023 01:37 PM Consult Order COMMUNITY CARE-NEUROLOGY Cons Director Business Development's Choice [facility] Lab Results: +/- 30 days of the encounter This section includes the Chemistry and Hematology Lab Results on record with [place] for the patient. Radiology Reports and Pathology Reports are provided separately, in subsequent sections. Lab Results This section contains the Chemistry/Hematology Results that were resulted 30 days before or 30 daysafter the date of the Encounter. Date/Time Source Result Type Result - Unit Interpretation Reference Range Comment Sep 13, 2023 01:18 PM [facility] ([facility]) VITAMIN D (25-OH) Specimen Type: SERUM No comment entered. Ordering Provider: FLYNN DEJESUS Report Released Date/Time: Sep 08, 2023 04:05 PM Reporting Lab: [address] [address] Performing Lab: [address] [address] VITAMIN D (25-OH) 39 ng/mL 20-50 Sep 13, 2023 01:18 PM [facility] ([facility]) MICROALBUMIN CREATININE RATIO PANEL Specimen Type: URINE No comment entered. Ordering Provider: FLYNN DEJESUS Report Released Date/Time: Sep 08, 2023 04:05 PM Reporting Lab: [facility] [address] [facility] [address] Performing Lab: [address] [address] MICROALBUMIN/C REATININE RATIO 16.2 mg/g 0-29.9 MICROALBUMIN,Q UANTITATIVE 2.8 mg/dL RR UNAVAIL CREATININE URINE 172.87 mg/dL Sep 13, 2023 01:18 PM [facility] ([facility]) VITAMIN B12 Specimen Type: SERUM No comment entered. Ordering Provider: FLYNN DEJESUS Report Released Date/Time: Sep 08, 2023 04:05 PM Reporting Lab: [address] [address] Performing Lab: [address] [address] VITAMIN B12 359 pg/mL 200-900 Sep 13, 2023 01:18 PM [facility] ([facility]) URINALYSIS Specimen Type: URINE Comment: If Glucose = >500 and Ketones are positive, please alert the Physician. Ordering Provider: FLYNN DEJESUS Report Released Date/Time: Sep 08, 2023 04:05 PM Reporting Lab: [address] [address] Performing Lab: [address] [address] UA COLOR Yellow Yellow UA APPEARANCE Clear Clear UA GLUCOSE NEGATIVE mg/dL Negative UA KETONES NEGATIVE mg/dL Negative UA BLOOD NEGATIVE mg/dL Negative UA PROTEIN 20 mg/dL Negative UA NITRITE NEGATIVE mg/dL Negative UA BILIRUBIN NEGATIVE mg/dL Negative UA SPECIFIC GRAVITY 1.027 H 1.016-1.022 UA pH 5.5 5.0-9.0 UA UROBILINOGEN <2.0 mg/dL <2.0 UA LEUKOCYTE NEGATIVE Negative Sep 13, 2023 01:18 PM [facility] ([facility]) HEMOGLOBIN A1C PANEL Specimen Type: BLOOD [...] Sep 08, 2023 04:05 PM Reporting Lab: [address] [address] Performing Lab: [address] [address] HEMOGLOBIN A1C 6.6 H 4.0-5.6 Sep 13, 2023 01:18 PM [facility] ([facility]) TSH Specimen Type: SERUM No comment entered. Ordering Provider: FLYNN DEJESUS Report Released Date/Time: Sep 08, 2023 04:05 PM Reporting Lab: [address] [address] Performing Lab: [address] [address] TSH 1.81 u[IU]/mL 0.35-5.00 Sep 13, 2023 01:18 PM [facility] ([facility]) BASIC METABOLIC PANEL (non-fasting) Specimen Type: SERUM No comment entered. Ordering Provider: FLYNN DEJESUS Report Released Date/Time: Sep 08, 2023 04:05 PM Reporting Lab: [address] [address] Performing Lab: [address] [address] UREA NITROGEN 23 mg/dL 7-25 GLUCOSE 120 mg/dL H 65-100 SODIUM 138 mmol/L 135-145 POTASSIUM 3.9 mmol/L 3.5-5.0 CHLORIDE 104 mmol/L 100-110 CO2 25 meq/L 20-30 CREATININE, Serum 1.15 mg/dL 0.50-1.40 eGFR(CKD-EPI 2020) 64 mL/min >60 Sep 13, 2023 01:18 PM [facility] ([facility]) LIVER FUNCTION Specimen Type: SERUM No comment entered. Ordering Provider: FLYNN DEJESUS Report Released Date/Time: Sep 08, 2023 04:05 PM Reporting Lab: [address] [address] Performing Lab: [address] [address] PROTEIN,TOTAL 7.1 g/dL 6.0-8.3 ALBUMIN 3.8 g/dL 3.5-5.0 ALKALINE PHOSPHATASE 82 U/L 40-150 AST 16 U/L 5-34 ALT 6 U/L BILIRUBIN, TOTAL 0.8 mg/dL 0.2-1.2 Sep 13, 2023 01:18 PM [facility] ([facility]) LIPID PANEL, NON FASTING Specimen Type: SERUM No comment entered. Ordering Provider: FLYNN DEJESUS Report Released Date/Time: Sep 08, 2023 04:05 PM Reporting Lab: [address] [address] Performing Lab: [address] [address] CHOLESTEROL 181 mg/dL TRIGLYCERIDE 142 mg/dL 0-150 LDL calculated 113 mg/dL 0-129 CHOL/HDL 4.5 HDL CHOLESTEROL 40 mg/dL 40-60 Sep 13, 2023 01:18 PM [facility] ([facility]) CBC AND DIFF (AUTO) Specimen Type: BLOOD No comment entered. Ordering Provider: FLYNN DEJESUS Report Released Date/Time: Sep 08, 2023 04:05 PM Reporting Lab: [address] [address] Performing Lab: [address] [address] WBC 8.48 10*3/uL 4.50-11.00 RBC 5.71 10*6/uL H 4.23-5.66 HGB 16.6 g/dL 12.8-17 HCT 49.8 39.2-50.4 MCV 87.2 fL 82-99 MCHC 33.3 g/dL 30.8-35.1 PLT 242 10*3/uL 140-360 RDW-CV 13.7 12.0-16.0 Pitt, Abs 0.73 10*3/uL 0.30-1.10 MCH 29.1 pg 26.2-32.6 Neut % 71.1 43.7-75.8 Lymph % 18.8 14.0-42.3 [place] % 8.6 5.1-13.7 Eos % 0.6 0.4-6.8 [...] the Encounter. The data comes from all [place] treatment facilities. Date/Time Radiology Report Provider Source Oct 11, 2023 12:[address] LUMBAR SPINE W/O CONT: MUKUL KAY [id number] -1940 M Exm Date: OCT 11, 2023@12:58 Req Phys: LENORA DEJESUS Pat Loc: [facility]/GO/PACT 1 [facility] (Req'g Loc) Img Loc: [place]/CT Service: Unknown (Case [id number] COMPLETE) CT LUMBAR SPINE W/O CONT (CT Detailed) CPT:82273 Reason for Study: back pain Clinical History: radiating left leg Report Status: Verified Date Reported: OCT 12, 2023 Date Verified: OCT 12, 2023 [employer] E-Sig: Report: CT LUMBAR SPINE W/O CONT HISTORY: back pain COMPARISON: None TECHNIQUE: CT of the lumbar spine performed without contrast. Images were received by the [place] National Teleradiology Program (NTP) for interpretation. RADIATION [...] chronic. Correlate clinically. READING PHYSICIAN: Mir Nuñez -[phone] 10/12/2023 10:03 [facility] National Teleradiology Program [phone] (For Medical Practitioner Use Only) Attention Patients / Veterans: If you have questions or concerns about these test results, please contact your ordering provider or primary care team. Primary Diagnostic Code: SIGNIFICANT ABNORMALITY, ATTN NEEDED Primary Interpreting Staff: RADIOLOGY,OUTSIDE SERVICE, Staff Physician / RADIOLOGY,OUTSIDE SERVICE [facility] Encounter Notes: All associated encounter notes This section contains the clinical notes associated to the Encounter. Date/Time Encounter Note(s) Provider Source Sep 19, 2023 12:00 PM NONVA CONSULT: LOCAL TITLE: COMMUNITY CARE-CONSULT RESULT NOTE STANDARD TITLE: NONVA CONSULT DATE OF NOTE: SEP 19, 2023@12:00 ENTRY DATE: SEP 29, 2023@15:17:09 AUTHOR: VINOD CARDOZA COSIGNER: URGENCY: STATUS: COMPLETED VistA Imaging - Scanned Document [facility] NOTES SCANNED DOCUMENT SIGNATURE NOT REQUIRED Electronically Filed: 09/29/2023 by: VINOD CARDOZA HOCKEY SCOUT V[facility]OD CARDOZA [facility]
--- OUTSIDE RECORDS SUMMARY | 2024-08-07 12:17 | XMS_ITS | Encounter Summary ---
Author Name [facility] Organization [facility] Address [address] [place] [address] Care Team Providers Care Dredging Inspector Name Role Phone LENORA ROJO Primary Care Provider Unavailab le Insurance Providers: [...] Jul 31, 2014 MEDICAR E SUPPLEM E [phone] FR GAMALIEL KAY PATIENT [facility] MEDICARE SUPPLEMEN EVANGELISTA MEDIC ARE SUPP Jul 31, 2014 SUPP [id number] [phone] FR GAMALIEL KAY PATIENT MEDICARE (WNR) MEDICARE (M) PART A Jan 29, 2004 PART A [id number] [phone] FR GAMALIEL KAY PATIENT MEDICARE (WNR) MEDICARE (M) PART B Jan 29, 2004 PART B [id number] [phone] FR GAMALIEL KAY PATIENT [facility] (WNR) MEDICARE ADVANTAGE [facility] ([facility]) Jul 31, 2023 [id number] GAMALIEL MACHADO PATIENT [facility] MCR (WNR) MEDICARE ADVANTAGE MCR (WNR) Jul 31, 2023 [id number] [phone] FR GAMALIEL KAY PATIENT Selected Encounter This section includes the information on record at DC for the Encounter. Date/Time Encounter Type Encounter Description Reason Pro vider Source Oct 05, 2023 02:30 PM Outpatient Encounter PRIMARY CARE/MEDICINE IHE Encounter Template Text not used by DC Plan of Treatment: Future Appointments (+ 6 months) and Future Tests (+/- 45 days) The Plan of Treatment section includes future care activities for the patient from all [place] treatmentfacilities. This section includes future appointments and future orders which are active, pending or scheduled. Future Appointments This section includes appointments that were scheduled to occur 6 months from the date of the Encounter, up to a maximum of 20 appointments. The data comes from all [place] treatment facilities. Appointment Date/Time Appointment Type Appointme nt Facility Name Oct 06, 2023 03:00 PM AMBULATORY - PSYCHIATRY [place] [facility] [place] [facility] Oct 10, 2023 02:00 PM AMBULATORY - MEDICINE [facility] ([facility]) Oct 11, 2023 01:00 PM AMBULATORY - NONE [place] [facility] [place] [facility] Oct 16, 2023 02:00 PM AMBULATORY - MEDICINE [place] [facility] [place] [facility] Oct 24, 2023 11:30 AM AMBULATORY - MEDICINE [place] [facility] [place] [facility] Oct 26, 2023 01:30 PM AMBULATORY - NEUROLOGY [facility] [place] [facility] Nov 13, 2023 01:00 PM AMBULATORY - MEDICINE [place] [facility] [place] [facility] December 11, 2023 10:30 AM AMBULATORY - MEDICINE DC [facility] [place] [facility] December 20, 2023 09:00 AM AMBULATORY - MEDICINE DC [facility] [place] [facility] December 20, 2023 02:00 PM AMBULATORY - MEDICINE [facility] ([facility]) Jan 08, 2024 10:30 AM AMBULATORY - MEDICINE [place] [facility] [place] [facility] Jan 11, 2024 01:00 PM AMBULATORY - MEDICINE DC [facility] [place] [facility] Jan 30, 2024 01:00 PM AMBULATORY - MEDICINE [place] [facility] [place] [facility] Mar 27, 2024 01:00 PM AMBULATORY - MEDICINE [facility] ([facility]) Apr 04, 2024 08:00 AM [facility]UL[facility] Active, Pending, and Scheduled Orders This [...] 01:37 PM Consult Order COMMUNITY CARE-NEUROLOGY Cons Drying Oven [facility] Lab Results: +/- 30 days of [...] Range Comment Sep 13, 2023 01:18 PM [facility] ([facility]) VITAMIN D (25-OH) Specimen Type: SERUM No comment entered. Ordering Provider: FLYNN ROJO Report Released Date/Time: Sep 08, 2023 04:05 PM Reporting Lab: [address] [address] Performing Lab: [address] [address] VITAMIN D (25-OH) 39 ng/mL 20-50 Sep 13, 2023 01:18 PM [facility] ([facility]) MICROALBUMIN CREATININE RATIO PANEL Specimen Type: URINE No comment entered. Ordering Provider: FLYNN ROJO Report Released Date/Time: Sep 08, 2023 04:05 PM Reporting Lab: [facility] [address] [facility] [address] Performing Lab: [address] [address] MICROALBUMIN/C REATININE RATIO 16.2 mg/g 0-29.9 MICROALBUMIN,Q UANTITATIVE 2.8 mg/dL RR UNAVAIL CREATININE URINE 172.87 mg/dL Sep 13, 2023 01:18 PM [facility] ([facility]) VITAMIN B12 Specimen Type: SERUM No comment entered. Ordering Provider: FLYNN ROJO Report Released Date/Time: Sep 08, 2023 04:05 PM Reporting Lab: [address] [address] Performing Lab: [address] [address] VITAMIN B12 359 pg/mL 200-900 Sep 13, 2023 01:18 PM [facility] ([facility]) URINALYSIS Specimen Type: URINE Comment: If Glucose = >500 and Ketones are positive, please alert the Physician. Ordering Provider: FLYNN ROJO Report Released Date/Time: Sep 08, 2023 04:05 PM Reporting Lab: [address] [address] Performing Lab: [address] [address] UA COLOR Yellow Yellow UA APPEARANCE Clear Clear UA GLUCOSE NEGATIVE mg/dL Negative UA KETONES NEGATIVE mg/dL Negative UA BLOOD NEGATIVE mg/dL Negative UA PROTEIN 20 mg/dL Negative UA NITRITE NEGATIVE mg/dL Negative UA BILIRUBIN NEGATIVE mg/dL Negative UA SPECIFIC GRAVITY 1.027 H 1.016-1.022 UA pH 5.5 5.0-9.0 UA UROBILINOGEN <2.0 mg/dL <2.0 UA LEUKOCYTE NEGATIVE Negative Sep 13, 2023 01:18 PM [facility] ([facility]) HEMOGLOBIN A1C PANEL Specimen Type: BLOOD Comment: Values obtained from A1C measurements can vary. For atypical A1C assays, a reported value of 7.0 could actually be between 6.72 and 7.28 if measured by a reference method. A reported value of 9.0 could actually be between 8.73 and 9.27. Ref: http://www.ngs p.org/CAPdata. asp Ordering Provider: FLYNN ROJO Report Released Date/Time: Sep 08, 2023 04:05 PM Reporting Lab: [address] [address] Performing Lab: [address] [address] HEMOGLOBIN A1C 6.6 H 4.0-5.6 Sep 13, 2023 01:18 PM [facility] ([facility]) TSH Specimen Type: SERUM No comment entered. Ordering Provider: FLYNN ROJO Report Released Date/Time: Sep 08, 2023 04:05 PM Reporting Lab: [address] [address] Performing Lab: [address] [address] TSH 1.81 u[IU]/mL 0.35-5.00 Sep 13, 2023 01:18 PM [facility] ([facility]) BASIC METABOLIC PANEL (non-fasting) Specimen Type: SERUM No comment entered. Ordering Provider: FLYNN ROJO Report Released Date/Time: Sep 08, 2023 04:05 PM Reporting Lab: [address] [address] Performing Lab: [address] [address] UREA NITROGEN 23 mg/dL 7-25 GLUCOSE 120 mg/dL H 65-100 SODIUM 138 mmol/L 135-145 POTASSIUM 3.9 mmol/L 3.5-5.0 CHLORIDE 104 mmol/L 100-110 CO2 25 meq/L 20-30 CREATININE, Serum 1.15 mg/dL 0.50-1.40 eGFR(CKD-EPI 2020) 64 mL/min >60 Sep 13, 2023 01:18 PM [facility] ([facility]) LIVER FUNCTION Specimen Type: SERUM No comment entered. Ordering Provider: FLYNN ROJO Report Released Date/Time: Sep 08, 2023 04:05 PM Reporting Lab: [address] [address] Performing Lab: [address] [address] PROTEIN,TOTAL 7.1 g/dL 6.0-8.3 ALBUMIN 3.8 g/dL 3.5-5.0 ALKALINE PHOSPHATASE 82 U/L 40-150 AST 16 U/L 5-34 ALT 6 U/L BILIRUBIN, TOTAL 0.8 mg/dL 0.2-1.2 Sep 13, 2023 01:18 PM [facility] ([facility]) LIPID PANEL, NON FASTING Specimen Type: SERUM No comment entered. Ordering Provider: FLYNN ROJO Report Released Date/Time: Sep 08, 2023 04:05 PM Reporting Lab: [address] [address] Performing Lab: [address] [address] CHOLESTEROL 181 mg/dL TRIGLYCERIDE 142 mg/dL 0-150 LDL calculated 113 mg/dL 0-129 CHOL/HDL 4.5 HDL CHOLESTEROL 40 mg/dL 40-60 Sep 13, 2023 01:18 PM [facility] ([facility]) CBC AND DIFF (AUTO) Specimen Type: BLOOD No comment entered. Ordering Provider: FLYNN ROJO Report Released Date/Time: Sep 08, 2023 04:05 PM Reporting Lab: [address] [address] Performing Lab: [address] [address] WBC 8.48 10*3/uL 4.50-11.00 RBC 5.71 10*6/uL H 4.23-5.66 HGB 16.6 g/dL 12.8-17 HCT 49.8 39.2-50.4 MCV 87.2 fL 82-99 MCHC 33.3 g/dL 30.8-35.1 PLT 242 10*3/uL 140-360 RDW-CV 13.7 12.0-16.0 Dyer, Abs 0.73 10*3/uL 0.30-1.10 MCH 29.1 pg 26.2-32.6 Neut % 71.1 43.7-75.8 Lymph % 18.8 14.0-42.3 Dyer % 8.6 5.1-13.7 Eos % 0.6 0.4-6.8 [...] 12:[address] LUMBAR SPINE W/O CONT: ERICH KAY [id number] M Exm Date: OCT 11, 2023@12:58 Req Phys: LENORA ROJO Pat Loc: C[facility]/GO/PACT 1 WH (Req'g Loc) Img Loc: [place]/CT Service: Unknown (Case [id number] COMPLETE) CT LUMBAR SPINE W/O CONT (CT Detailed) CPT:05215 Reason for Study: back pain Clinical History: radiating left leg Report Status: Verified Date Reported: OCT 12, 2023 Date Verified: OCT 12, 2023 Order Packer Or Packager E-Sig: Report: CT LUMBAR SPINE W/O CONT [...] chronic. Correlate clinically. READING PHYSICIAN: Mir Nuñez -[phone] 10/12/2023 10:03 [facility] National Teleradiology Program [phone] (For Medical Practitioner Use Only) Attention Patients / Veterans: If you have questions or concerns about these test results, please contact your ordering provider or primary care team. Primary Diagnostic Code: SIGNIFICANT ABNORMALITY, ATTN NEEDED Primary Interpreting Staff: RADIOLOGY,OUTSIDE SERVICE, Staff Physician / RADIOLOGY,OUTSIDE SERVICE [facility] Encounter Notes: All associated encounter notes This section contains the clinical notes associated to the Encounter. Date/Time Encounter Note(s) Provider Source Oct 05, 2023 06:27 PM ADDENDUM: LOCAL TITLE: Addendum STANDARD TITLE: ADDENDUM DATE OF NOTE: OCT 05, 2023@18:27:17 ENTRY DATE: OCT 05, 2023@18:27:18 AUTHOR: LENORA ROJO EXP COSIGNER: URGENCY: STATUS: COMPLETED Message from nurse appreciated and I called to discuss how he is feeling. He says with all of his problems it is hard not to feel down somedays and somedays he feels like crying. He loves to fish and really hopes his sons will take him fishing this year. His younger brother was supposed to visit but couldnt because he tore his achilles so he is really dissappointed about that. When asked about suicidal thoughts he states that he does not have any thought of hurting himslef and has never tried in the past. He says it is difficult to get around and it is getting worse with his chronic pain for which he takes one ibuprofen a day, because he is on a blood thinner. He has pain is his knees, hips and shoulders, and more recently started having sciatica pain radiating into the left buttock. He is awating a CT Lumbar spine for this. Discussed referral to pain managment and to our mental health services and agrgees to both an docnsults are placed. [place] also agrees to coming into the [facility] sooner to see me in the next 2 weeks. He will also see if he can figure out the video visit because he is open to that as well. /kasia/ LENORA ROJO MD PHYSICIAN Signed: 10/05/2023 18:45 Receipt Acknowledged By: 10/06/2023 11:07 /kasia/ PRINCE JAIN ADVANCED ASSEMBLY AND PACKING SUPERVISOR === --- Original Document --- 10/05/23 NON-DC MEDICAL RECORD SUMMARY: COPIED & PASTED FROM [facility] NURSE NOTE [facility] Date of Encounter: 10/02/2023 Author: Abigail Mares RN October 02, 2023 Dear Lenora Rojo MD, I have seen a mutual patient, Erich Kay ( 44) at his home for a bi-weekly dressing change of his 3rd toe on his left foot. This wound is neither healing nor progressing and he has a follow-up with the flight deck officer [place]. I am writing because more frequently during my visits with Jose I have noticed an increase in his sadness and hopelessness. l am hopeful at Jose's next appointment you will be able to address this with him. Jose has told me that he was supposed to make a follow-up appt with yourself but forgot to do so after leaving his last appt. I have encouraged Jose to call the office to make this appt, but perhaps your staff would be able to prompt him with a phone call. I am also enclosing a copy of Jose's immunization certificate, which can also be accessed on the [facility] website- he received his flu shot this season and also his Covid booster this season and last season. Thank you very much, Abigail Mares RN, [facility] Nurse /kasia/ TODD DANIELS RN REGISTERED NURSE Signed: 10/05/2023 14:33 Receipt Acknowledged By: 10/05/2023 18:47 /kasia/ LENORA ROJO MD PHYSICIAN 10/05/2023 14:50 /kasia/ PRINCE JANI ADVANCED ASSEMBLY AND PACKING SUPERVISOR 10/05/2023 ADDENDUM STATUS: COMPLETED Spoke with , scheduled appointment for 12/06/2023. Offered appointment much sooner, declined. /kasia/ PRINCE JAIN ADVANCED ASSEMBLY AND PACKING SUPERVISOR Signed: 10/05/2023 14:50 LENORA ROJO ([facility]) Oct 05, 2023 02:37 PM IMMUNIZATION NOTE: LOCAL TITLE: COVERS[place]ET IMMUNIZATION NOTE STANDARD TITLE: IMMUNIZATION NOTE DATE OF NOTE: OCT 05, 2023@14:37:42 ENTRY DATE: OCT 05, 2023@14:37:42 AUTHOR: TODD DANIELS EXP COSIGNER: URGENCY: STATUS: COMPLETED Documented: COVID-19 (MODERNA), MRNA, LNP-S, PF, 50 MCG/0.5 ML (AGES 12+ YEARS) Historical Date Administered: Jun 20, 2023 Information Source: FROM PATIENT'S WRITTEN RECORD /kasia/ TODD DANIELS RN REGISTERED NURSE Signed: 10/05/2023 14:38 TODD DANIELS ([facility]) Oct 05, 2023 02:31 PM NONVA NOTE: LOCAL TITLE: NON-VA MEDICAL RECORD SUMMARY STANDARD TITLE: NONVA NOTE DATE OF NOTE: OCT 05, 2023@14:31 ENTRY DATE: OCT 05, 2023@14:31:12 AUTHOR: TODD DANIELS EXP COSIGNER: URGENCY: STATUS: COMPLETED NON-VA MEDICAL RECORD SUMMARY Has ADDENDA COPIED & PASTED FROM [facility] NURSE NOTE [facility] Date of Encounter: 10/02/2023 Author: Abigail Mares RN October 02, 2023 Dear Lenora Rojo MD, I have seen a mutual patient, Erich Kay ( 44) at his home for a bi-weekly dressing change of his 3rd toe on his left foot. This wound is neither healing nor progressing and he has a follow-up with the flight deck officer in the [facility] for this. I am writing because more frequently during my visits with Jose I have noticed an increase in his sadness and hopelessness. l am hopeful at Jose's next appointment you will be able to address this with him. Jose has told me that he was supposed to make a follow-up appt with yourself but forgot to do so after leaving his last appt. I have encouraged Jose to call the office to make this appt, but perhaps your staff would be able to prompt him with a phone call. I am also enclosing a copy of Jose's immunization certificate, which can also be accessed on the [facility] website- he received his flu shot this season and also his Covid booster this season and last season. Thank you very much, Abigail Mares RN, [facility] Nurse /kasia/ TODD DANIELS RN REGISTERED NURSE Signed: 10/05/2023 14:33 Receipt Acknowledged By: 10/05/2023 18:47 /kasia/ LENORA ROJO MD PHYSICIAN 10/05/2023 14:50 /kasia/ PRINCE JAIN ADVANCED ASSEMBLY AND PACKING SUPERVISOR 10/05/2023 ADDENDUM STATUS: COMPLETED Spoke with , scheduled appointment for 12/06/2023. Offered appointment much sooner, declined. /kasia/ PRINCE JAIN ADVANCED ASSEMBLY AND PACKING SUPERVISOR Signed: 10/05/2023 14:50 10/05/2023 ADDENDUM STATUS: COMPLETED Message from nurse appreciated and I called to discuss how he is feeling. He says with all of his problems it is hard not to feel down somedays and somedays he feels like crying. He loves to fish and really hopes his sons will take him fishing this year. His younger brother was supposed to visit but couldnt because he tore his achilles so he is really dissappointed about that. When asked about suicidal thoughts he states that he does not have any thought of hurting himslef and has never tried in the past. He says it is difficult to get around and it is getting worse with his chronic pain for which he takes one ibuprofen a day, because he is on a blood thinner. He has pain is his knees, hips and shoulders, and more recently started having sciatica pain radiating into the left buttock. He is awating a CT Lumbar spine for this. Discussed referral to pain managment and to our mental health services and lauren to both an docnsults are placed. [place] also agrees to coming into the [facility] sooner to see me in the next 2 weeks. He will also see if he can figure out the video visit because he is open to that as well. /kasia/ LENORA ROJO MD PHYSICIAN Signed: 10/05/2023 18:45 Receipt Acknowledged By: * AWAITING SIGNATURE * PRINCE JAIN,TODD BRITO ([facility])
--- OUTSIDE RECORDS SUMMARY | 2024-08-07 12:17 | XMS_ITS | Encounter Summary ---
Author Name [facility] of Vetera [facility] ([place]) Organization [facility] [place] [place]) Address [address] [place] [address] Care Team Providers Care Portfolio Assistant Name Role Phone LENORA ROJO Primary Care [...] Jul 31, 2014 MEDICAR E SUPPLEM E [id number] [phone] FR GAMALIEL KAY PATIENT [facility] MEDICARE SUPPLEMEN EVANGELIST[facility] MEDIC ARE SUPP Jul 31, 2014 SUPP [id number] [phone] FR GAMALIEL KAY PATIENT MEDICARE (WNR) MEDICARE (M) PART A Jan 29, 2004 PART A [id number] [phone] FR GAMALIEL KAY PATIENT MEDICARE (WNR) MEDICARE (M) PART B Jan 29, 2004 PART B [id number] [phone] FR GAMALIEL KAY PATIENT [facility] (WNR) MEDICARE ADVANTAGE [facility] Jul 31, 2023 [id number] [phone] [id number] GAMALIEL MACHADO PATIENT [facility] (WNR) MEDICARE ADVANTAGE MCR (WNR) Jul 31, 2023 [id number] [phone] FR GAMALIEL KAY PATIENT Selected Encounter This section includes the information on record at OR for the Encounter. Date/Time Encounter Type Encounter Description Reason Pro vider Source Sep 06, 2023 03:43 PM Outpatient Encounter PRIMARY CARE/MEDICINE IHE Encounter Template Text not used by OR Plan of Treatment: Future Appointments (+ 6 months) and Future Tests (+/- 45 days) The Plan of Treatment section includes future care activities for the patient from all OR treatmentfacilities. This section includes future appointments and future orders which are active, pending or scheduled. Future Appointments This section includes appointments that were scheduled to occur 6 months from the date of the Encounter, up to a maximum of 20 appointments. The data comes from all OR treatment facilities. Appointment Date/Time Appointment Type Appointme nt Facility Name Sep 19, 2023 01:30 PM AMBULATORY - MEDICINE [place] [facility] [place] [facility] Sep 22, 2023 01:00 PM AMBULATORY - MEDICINE [facility] ([facility]) Oct 03, 2023 11:30 AM AMBULATORY - MEDICINE [place] [facility] [place] [facility] Oct 06, 2023 03:00 PM AMBULATORY - PSYCHIATRY [place] [facility] [place] [facility] Oct 10, 2023 02:00 PM AMBULATORY - MEDICINE [facility] ([facility]) Oct 11, 2023 01:00 PM AMBULATORY - NONE [place] [facility] [place] [facility] Oct 16, 2023 02:00 PM AMBULATORY - MEDICINE [place] [facility] [place] [facility] Oct 24, 2023 11:30 AM AMBULATORY - MEDICINE [place] [facility] [place] [facility] Oct 26, 2023 01:30 PM AMBULATORY - NEUROLOGY [facility] [place] [facility] Nov 13, 2023 01:00 PM AMBULATORY - MEDICINE [place] [facility] [place] [facility] December 11, 2023 10:30 AM AMBULATORY - MEDICINE [place] [facility] [place] [facility] December 20, 2023 09:00 AM AMBULATORY - MEDICINE [place] [facility] [place] [facility] December 20, 2023 02:00 PM AMBULATORY - MEDICINE [facility] ([facility]) Jan 08, 2024 10:30 AM AMBULATORY - MEDICINE [place] [facility] [place] [facility] Jan 11, 2024 01:00 PM AMBULATORY - MEDICINE [place] [facility] [place] [facility] Jan 30, 2024 01:00 PM AMBULATORY - MEDICINE OR [facility] Lab Results: +/- 30 days of the encounter This section includes the Chemistry and Hematology Lab Results on record with OR for the patient. Radiology Reports and Pathology Reports are provided separately, in subsequent sections. Lab Results This section contains the Chemistry/Hematology Results that were resulted 30 days before or 30 daysafter the date of the Encounter. Date/Time Source Result Type Result - Unit Interpretation Reference Range Comment Sep 13, 2023 01:18 PM [place] ([facility]) VITAMIN D (25-OH) Specimen Type: SERUM No comment entered. Ordering Provider: FLYNN ROJO Report Released Date/Time: Sep 08, 2023 04:05 PM Reporting Lab: [address] [address] Performing Lab: [address] [address] VITAMIN D (25-OH) 39 ng/mL 20-50 Sep 13, 2023 01:18 PM [place] ([facility]) MICROALBUMIN CREATININE RATIO PANEL Specimen Type: URINE No comment entered. Ordering Provider: FLYNN ROJO Report Released Date/Time: Sep 08, 2023 04:05 PM Reporting Lab: [address] [address] Performing Lab: [address] [address] MICROALBUMIN/C REATININE RATIO 16.2 mg/g 0-29.9 MICROALBUMIN,Q UANTITATIVE 2.8 mg/dL RR UNAVAIL CREATININE URINE 172.87 mg/dL Sep 13, 2023 01:18 PM [place] ([facility]) VITAMIN B12 Specimen Type: SERUM No comment entered. Ordering Provider: FLYNN ORJO Report Released Date/Time: Sep 08, 2023 04:05 PM Reporting Lab: [address] [address] Performing Lab: [address] [address] VITAMIN B12 359 pg/mL 200-900 Sep 13, 2023 01:18 PM [facility] ([facility]) URINALYSIS Specimen Type: URINE Comment: If Glucose = >500 and Ketones are positive, please alert the Physician. Ordering Provider: FLYNN ROJO Report Released Date/Time: Sep 08, 2023 04:05 PM Reporting Lab: [address] [address] Performing Lab: [address] [address] UA COLOR Yellow Yellow UA APPEARANCE Clear [...] Sep 08, 2023 04:05 PM Reporting Lab: [address] [address] Performing Lab: [address] [address] TSH 1.81 u[IU]/mL 0.35-5.00 Sep 13, 2023 [...] Sep 08, 2023 04:05 PM Reporting Lab: [address] [address] Performing Lab: [address] [address] HEMOGLOBIN A1C 6.6 H 4.0-5.6 Sep 13, 2023 01:18 PM [place] ([facility]) BASIC METABOLIC PANEL (non-fasting) Specimen Type: SERUM No comment entered. Ordering Provider: FLYNN ROJO Report Released Date/Time: Sep 08, 2023 04:05 PM Reporting Lab: [address] [address] Performing Lab: [address] [address] UREA NITROGEN 23 mg/dL 7-25 GLUCOSE 120 mg/dL H 65-100 SODIUM 138 mmol/L 135-145 POTASSIUM 3.9 mmol/L 3.5-5.0 CHLORIDE 104 mmol/L 100-110 CO2 25 meq/L 20-30 CREATININE, Serum 1.15 mg/dL 0.50-1.40 eGFR(CKD-EPI 2020) 64 mL/min >60 Sep 13, 2023 01:18 PM [place] ([facility]) LIVER FUNCTION Specimen Type: SERUM No comment entered. Ordering Provider: FLYNN ROJO Report Released Date/Time: Sep 08, 2023 04:05 PM Reporting Lab: [address] [address] Performing Lab: [address] [address] PROTEIN,TOTAL 7.1 g/dL 6.0-8.3 ALBUMIN 3.8 g/dL 3.5-5.0 ALKALINE PHOSPHATASE 82 U/L 40-150 AST 16 U/L 5-34 ALT 6 U/L BILIRUBIN, TOTAL 0.8 mg/dL 0.2-1.2 Sep 13, 2023 01:18 PM [place] ([facility]) LIPID PANEL, NON FASTING Specimen Type: SERUM No comment entered. Ordering Provider: FLYNN ROJO Report Released Date/Time: Sep 08, 2023 04:05 PM Reporting Lab: [address] [address] Performing Lab: [address] [address] CHOLESTEROL 181 mg/dL TRIGLYCERIDE 142 mg/dL 0-150 LDL calculated 113 mg/dL 0-129 CHOL/HDL 4.5 HDL CHOLESTEROL 40 mg/dL 40-60 Sep 13, 2023 01:18 PM [place] ([facility]) CBC AND DIFF (AUTO) Specimen Type: BLOOD No comment entered. Ordering Provider: FLYNN ROJO Report Released Date/Time: Sep 08, 2023 04:05 PM Reporting Lab: [address] [address] Performing Lab: [address] [address] WBC 8.48 10*3/uL 4.50-11.00 RBC 5.71 10*6/uL H 4.23-5.66 HGB 16.6 g/dL 12.8-17 HCT 49.8 39.2-50.4 MCV 87.2 fL 82-99 MCHC 33.3 g/dL 30.8-35.1 PLT 242 10*3/uL 140-360 RDW-CV 13.7 12.0-16.0 [place], Abs 0.73 10*3/uL 0.30-1.10 MCH 29.1 pg 26.2-32.6 Neut % 71.1 43.7-75.8 Lymph % 18.8 14.0-42.3 [place] % 8.6 5.1-13.7 Eos % 0.6 0.4-6.8 [...] Encounter. Date/Time Encounter Note(s) Provider Source Sep 06, 2023 03:43 PM NONVA NOTE: LOCAL TITLE: NON-VA MEDICAL RECORD SUMMARY STANDARD TITLE: NONVA NOTE DATE OF NOTE: SEP 06, 2023@15:43 ENTRY DATE: SEP 06, 2023@15:43:22 AUTHOR: TODD DANIELS COSIGNER: URGENCY: STATUS: COMPLETED NON-VA MEDICAL RECORD SUMMARY Has ADDENDA COPIED & PASTED FROM [facility] NURSE NOTE [facility] Nurse Date of Encounter: 09/06/2023 Author: Abigail Mares RN September 06, 2023 Dear Lenora Rojo MD, I have seen a mutual patient, Erich Kay ( 44) at his home for a follow?up visit relating to his toe. Jose saw his Circle Edger last week and has prescribed dressing changes 3X week on the 3rd toe Right Foot. At the tip of the toe there is a wound (unhealing), which appears to be a large callous. It is not red and is not draining but is intermittently painful. Jose is going for an X- ray today to r/o infection. Jose and I have had many conversations about Diabetes in the past as his diet is high in sugar and we have checked his fasting blood glucose 2X this week. On 09/04/23 his blood glucose POC was 154. Jose tells me he drank a small amount of coconut water prior to the test, so we re-tested again this AM 09/06/23 and his fasting blood glucose POC was 174. Today I was also able to check his AlC which was 6.5. I understand Jose takes Glimepiride and I believe he is compliant with his medications. Due to the increasing deformity of his Charcot foot (left foot) and the potential for Charcot to arise in his Right Foot, along with many wounds in the past I am concerned his blood sugar may not be controlled as well as it could be. If you need to discuss these results further prior to his next appointment, please feel free to contact myself or contact Jose directly at . Thank you kindly, Abigail Mares RN, [facility] Nurse [place] has appt scheduled for 09/22/23 /kasia/ TODD DANIELS RN REGISTERED NURSE Signed: 09/06/2023 15:45 Receipt Acknowledged By: 09/08/2023 11:34 /kasia/ LENORA ROJO MD PHYSICIAN 09/08/2023 ADDENDUM STATUS: COMPLETED We have appnt on 09/22. Chi rchcek labs and refer to clinical Pharmacy for Diabetes /kasia/ LENORA ROJO MD PHYSICIAN Signed: 09/08/2023 11:35 TODD DANIELS ([facility])
--- OUTSIDE RECORDS SUMMARY | 2024-08-07 12:17 | XMS_ITS ---
Author Name [facility] ([place]) Organization [facility] [place] Address [address] [place] [address] Care Team Providers Care Diabetes Territory Manager Name Role Phone LENORA ROJO Primary Care [...] Jul 31, 2014 MEDICAR E SUPPLEM E [id number] [phone] FR GAMALIEL KAY PATIENT [facility] MEDICARE SUPPLEMEN [place]EL[place] MEDIC ARE SUPP Jul 31, 2014 SUPP [id number] [phone] FR GAMALIEL KAY PATIENT MEDICARE (WNR) MEDICARE (M) PART A Jan 29, 2004 PART A [id number] [phone] FR GAMALIEL KAY PATIENT MEDICARE (WNR) MEDICARE (M) PART B Jan 29, 2004 PART B [id number] [phone] FR GAMALIEL KAY PATIENT [facility] (WNR) MEDICARE ADVANTAGE [facility] ([facility]) Jul 31, 2023 [id number] [phone] FR GAMALIEL KAY PATIENT [facility]CR (WNR) MEDICARE ADVANTAGE MCR (WNR) Jul 31, 2023 [id number] [phone] FR GAMALIEL KAY PATIENT Selected Encounter This section includes the information on record at MD for the Encounter. Date/Time Encounter Type Encounter Description Reason Pro vider Source Oct 06, 2023 10:04 AM Outpatient Encounter TELEPHONE IHE Encounter Template Text not used by [...] Appointment Type Appointme nt Facility Name Oct 10, 2023 02:00 PM AMBULATORY - MEDICINE [facility] ([facility]) Oct 11, 2023 01:00 PM AMBULATORY - NONE [place] [facility] [place] [facility] Oct 16, 2023 02:00 PM AMBULATORY - MEDICINE [place] [facility] [place] [facility] Oct 24, 2023 11:30 AM AMBULATORY - MEDICINE [place] [facility] [place] [facility] Oct 26, 2023 01:30 PM AMBULATORY - NEUROLOGY [facility] [place] [facility] Nov 13, 2023 01:00 PM AMBULATORY - MEDICINE [place] [facility] [place] [facility] December 11, 2023 10:30 AM AMBULATORY - MEDICINE [place] [facility] [place] [facility] December 20, 2023 09:00 AM AMBULATORY - MEDICINE [place] [facility] [place] [facility] December 20, 2023 02:00 PM AMBULATORY - MEDICINE [facility] ([facility]) Jan 08, 2024 10:30 AM AMBULATORY - MEDICINE [place] [facility] [place] [facility] Jan 11, 2024 01:00 PM AMBULATORY - MEDICINE [place] [facility] [place] [facility] Jan 30, 2024 01:00 PM AMBULATORY - MEDICINE [place] [facility] [place] [facility] Mar 27, 2024 01:00 PM AMBULATORY - MEDICINE [facility] ([facility]) Apr 04, 2024 08:00 AM [facility] Active, Pending, and Scheduled Orders This section [...] Facility Name 2023 01:37 PM Consult Order [facility]-NEUROLOGY Cons Bankruptcy Attorney's Choice [facility] Lab Results: +/- 30 days of the encounter This section includes the Chemistry and Hematology Lab Results on record with MD for the patient. Radiology Reports and Pathology Reports are provided separately, in subsequent sections. Lab Results This section contains the Chemistry/Hematology Results that were resulted 30 days before or 30 daysafter the date of the Encounter. Date/Time Source Result Type Result - Unit Interpretation Reference Range Comment Sep 13, 2023 01:18 PM [place] ([facility]) VITAMIN D (25-OH) Specimen Type: SERUM No comment entered. Ordering Provider: FLYNN ROJO Report Released Date/Time: Sep 08, 2023 04:05 PM Reporting Lab: [facility] [address] [facility] [address] Performing Lab: [address] [address] VITAMIN D (25-OH) 39 ng/mL 20-50 Sep 13, 2023 01:18 PM [place] ([facility]) MICROALBUMIN CREATININE RATIO PANEL Specimen Type: URINE No comment entered. Ordering Provider: FLYNN ROJO Report Released Date/Time: Sep 08, 2023 04:05 PM Reporting Lab: [facility] [address] [facility] [address] Performing Lab: [address] [address] MICROALBUMIN/C REATININE RATIO 16.2 mg/g 0-29.9 MICROALBUMIN,Q UANTITATIVE 2.8 mg/dL RR UNAVAIL CREATININE URINE 172.87 mg/dL Sep 13, 2023 01:18 PM [facility] ([facility]) VITAMIN B12 Specimen Type: SERUM No comment entered. Ordering Provider: FLYNN ROJO Report Released Date/Time: Sep 08, 2023 04:05 PM Reporting Lab: [address] [address] Performing Lab: [address] [address] VITAMIN B12 359 pg/mL 200-900 Sep 13, 2023 01:18 PM [facility] ([facility]) URINALYSIS Specimen Type: URINE Comment: If Glucose = >500 and Ketones are positive, please alert the Physician. Ordering Provider: FLYNN ROJO Report Released Date/Time: Sep 08, 2023 04:05 PM Reporting Lab: [address] [address] Performing Lab: [address] [address] UA COLOR Yellow Yellow UA APPEARANCE Clear [...] Sep 08, 2023 04:05 PM Reporting Lab: [address] [address] Performing Lab: [place] [id number] TSH 1.81 u[IU]/mL 0.35-5.00 Sep 13, 2023 [...] Sep 08, 2023 04:05 PM Reporting Lab: [address] [address] Performing Lab: [address] [address] HEMOGLOBIN A1C 6.6 H 4.0-5.6 Sep 13, 2023 01:18 PM [place] ([facility]) BASIC METABOLIC PANEL (non-fasting) Specimen Type: SERUM No comment entered. Ordering Provider: FLYNN ROJO Report Released Date/Time: Sep 08, 2023 04:05 PM Reporting Lab: [address] [address] Performing Lab: [address] [address] UREA NITROGEN 23 mg/dL 7-25 GLUCOSE 120 mg/dL H 65-100 SODIUM 138 mmol/L 135-145 POTASSIUM 3.9 mmol/L 3.5-5.0 CHLORIDE 104 mmol/L 100-110 CO2 25 meq/L 20-30 CREATININE, Serum 1.15 mg/dL 0.50-1.40 eGFR(CKD-EPI 2020) 64 mL/min >60 Sep 13, 2023 01:18 PM [place] ([facility]) LIVER FUNCTION Specimen Type: SERUM No comment entered. Ordering Provider: FLYNN ROJO Report Released Date/Time: Sep 08, 2023 04:05 PM Reporting Lab: [address] [address] Performing Lab: [address] [address] PROTEIN,TOTAL 7.1 g/dL 6.0-8.3 ALBUMIN 3.8 g/dL 3.5-5.0 ALKALINE PHOSPHATASE 82 U/L 40-150 AST 16 U/L 5-34 ALT 6 U/L BILIRUBIN, TOTAL 0.8 mg/dL 0.2-1.2 Sep 13, 2023 01:18 PM [place] ([facility]) LIPID PANEL, NON FASTING Specimen Type: SERUM No comment entered. Ordering Provider: FLYNN ROJO Report Released Date/Time: Sep 08, 2023 04:05 PM Reporting Lab: [address] [address] Performing Lab: [address] [address] CHOLESTEROL 181 mg/dL TRIGLYCERIDE 142 mg/dL 0-150 LDL calculated 113 mg/dL 0-129 CHOL/HDL 4.5 HDL CHOLESTEROL 40 mg/dL 40-60 Sep 13, 2023 01:18 PM [place] ([facility]) CBC AND DIFF (AUTO) Specimen Type: BLOOD No comment entered. Ordering Provider: FLYNN ROJO Report Released Date/Time: Sep 08, 2023 04:05 PM Reporting Lab: [address] [address] Performing Lab: [address] [address] WBC 8.48 10*3/uL 4.50-11.00 RBC 5.71 10*6/uL H 4.23-5.66 HGB 16.6 g/dL 12.8-17 HCT 49.8 39.2-50.4 MCV 87.2 fL 82-99 MCHC 33.3 g/dL 30.8-35.1 PLT 242 10*3/uL 140-360 RDW-CV 13.7 12.0-16.0 [place], Abs 0.73 10*3/uL 0.30-1.10 MCH 29.1 pg 26.2-32.6 Neut % 71.1 43.7-75.8 Lymph % 18.8 14.0-42.3 [place] % 8.6 5.1-13.7 Eos % 0.6 0.4-6.8 [...] LUMBAR SPINE W/O CONT: MUKUL KAY MIKE [id number] -[id number] M Exm Date: OCT 11, 2023@12:58 Req Phys: LENORA ROJO Pat Loc: [facility]/GO/PACT 1 WH (Req'g Loc) Img Loc: [facility] [place]/CT Service: Unknown (Case [id number] COMPLETE) CT LUMBAR SPINE W/O CONT (CT Detailed) CPT:57210 Reason for Study: back pain Clinical History: radiating left leg Report Status: Verified Date Reported: OCT 12, 2023 Date Verified: OCT 12, 2023 Remediation Technician E-Sig: Report: CT LUMBAR SPINE W/O [...] chronic. Correlate clinically. READING PHYSICIAN: Mir Nuñez -[phone] 10/12/2023 10:03 [facility] National Teleradiology Program [phone] (For Medical Practitioner Use Only) Attention Patients / Veterans: If you have questions or concerns about these test results, please contact your ordering provider or primary care team. Primary Diagnostic Code: SIGNIFICANT ABNORMALITY, ATTN NEEDED Primary Interpreting Staff: RADIOLOGY,OUTSIDE SERVICE, Staff Physician / RADIOLOGY,OUTSIDE SERVICE [facility] Encounter Notes: All associated encounter notes This section contains the clinical notes associated to the Encounter. Date/Time Encounter Note(s) Provider Source Oct 06, 2023 10:04 AM PRIMARY CARE SOLO RS: LOCAL TITLE: PATIENT LETTER - [facility] TITLE: PRIMARY CARE LETTERS DATE OF NOTE: OCT 06, 2023@10:04 ENTRY DATE: OCT 06, 2023@10:04:27 AUTHOR: JANICE FREIRE EXP COSIGNER: URGENCY: STATUS: COMPLETED DEPARTMENT OF [facility] Telephone number: [phone] MUKUL SANDERS RAHUL [address] [place], [place], [address] OCT 06, 2023 Dear Mr. Kay, Your primary care provider, Dr. Rojo, has referred you to the [facility] outpatient mental health clinic. I attempted to reach you by phone this morning but was only able to leave you a message asking you to call me back. This letter is another invitation for you to call me at [phone], ext. [phone] so we can discuss this referral further. Respectfully, Janice Freire, assistant speech language pathologist [facility] mental health clinic [facility] [facility] [address] [address] JANICE FREIRE ([facility])
--- OUTSIDE RECORDS SUMMARY | 2024-08-07 12:17 | XMS_ITS ---
Author Name [facility] [place] Organization [facility] [place] Address [address] [place] [address] Care Team Providers Care Nurse Staff Name Role Phone LENORA ROJO Primary Care [...] Jul 31, 2014 MEDICAR E SUPPLEM E [id number] [phone] FR GAMALIEL KAY PATIENT [facility] MEDICARE SUPPLEMEN EVANGELISTA MEDIC ARE SUPP Jul 31, 2014 SUPP [id number] [phone] FR GAMALIEL KAY PATIENT MEDICARE (WNR) MEDICARE (M) PART A Jan 29, 2004 PART A [id number] [phone] FR GAMALIEL KAY PATIENT MEDICARE (WNR) MEDICARE (M) PART B Jan 29, 2004 PART B [id number] [phone] FR GAMALIEL KAY PATIENT [facility] (WNR) MEDICARE ADVANTAGE [facility] ([facility]) Jul 31, 2023 [id number] [phone] [id number] GAMALIEL MACHADO PATIENT [facility] (WNR) MEDICARE ADVANTAGE [facility] (WNR) Jul 31, 2023 [id number] [phone] FR GAMALIEL KAY PATIENT Selected Encounter This section includes the information on record at [place] for the Encounter. Date/Time Encounter Type Encounter Description Reason Pro vider Source Sep 14, 2023 02:08 PM Outpatient Encounter PRIMARY CARE/MEDICINE IHE Encounter Template Text not used by [place] Plan of Treatment: Future Appointments (+ 6 months) and Future Tests (+/- 45 days) The Plan of Treatment section includes future care activities for the patient from all [place] treatmentfacilities. This section includes future appointments and future orders which are active, pending or scheduled. Future Appointments This section includes appointments that were scheduled to occur 6 months from the date of the Encounter, up to a maximum of 20 appointments. The data comes from all [place] treatment facilities. Appointment Date/Time Appointment Type Appointme nt Facility Name Sep 19, 2023 01:30 PM AMBULATORY - MEDICINE [facility] [place] [facility] Sep 22, 2023 01:00 PM AMBULATORY - MEDICINE [facility] ([facility]) Oct 03, 2023 11:30 AM AMBULATORY - MEDICINE [facility] [place] [facility] Oct 06, 2023 03:00 PM AMBULATORY - PSYCHIATRY [facility] [place] [facility] Oct 10, 2023 02:00 PM AMBULATORY - MEDICINE [facility] ([facility]) Oct 11, 2023 01:00 PM AMBULATORY - NONE [facility] [place] [facility] Oct 16, 2023 02:00 PM AMBULATORY - MEDICINE [facility] [place] [facility] Oct 24, 2023 11:30 AM AMBULATORY - MEDICINE [facility] [place] [facility] Oct 26, 2023 01:30 PM AMBULATORY - NEUROLOGY [facility] [place] [facility] Nov 13, 2023 01:00 PM AMBULATORY - MEDICINE [facility] [place] [facility] December 11, 2023 10:30 AM AMBULATORY - MEDICINE [facility] [place] [facility] December 20, 2023 09:00 AM AMBULATORY - MEDICINE [facility] [place] [facility] December 20, 2023 02:00 PM AMBULATORY - MEDICINE [facility] ([facility]) Jan 08, 2024 10:30 AM AMBULATORY - MEDICINE [facility] [place] [facility] Jan 11, 2024 01:00 PM AMBULATORY - MEDICINE [facility] [place] [facility] Jan 30, 2024 01:00 PM [facility] Active, Pending, and Scheduled Orders This section includes a listing of several types of active, pending, and scheduled orders, including clinic medications orders, diagnostic test orders, procedure orders and consult orders; where the start date of the order is 45 days before the date of the Encounter or 45 days after the date of theEncounter. The data comes from all [place] treatment facilities. Test Date/Time Test Type Test Details Facility Name 2023 01:37 PM Consult Order [facility]-NEUROLOGY Cons [employer] [facility] Lab Results: +/- 30 days of the encounter This section includes the Chemistry and Hematology Lab Results on record with [place] for the patient. Radiology Reports and Pathology Reports are provided separately, in subsequent sections. Lab Results This section contains the Chemistry/Hematology Results that were resulted 30 days before or 30 daysafter the date of the Encounter. Date/Time Source Result Type Result - Unit Interpretation Reference Range Comment Sep 13, 2023 01:18 PM [facility] ([facility]) VITAMIN B12 Specimen Type: SERUM No comment entered. Ordering Provider: FLYNN ROJO Report Released Date/Time: Sep 08, 2023 04:05 PM Reporting Lab: [address] [address] Performing Lab: [address] [address] VITAMIN B12 359 pg/mL 200-900 Sep 13, 2023 01:18 PM [facility] ([facility]) VITAMIN D (25-OH) Specimen Type: SERUM No comment entered. Ordering Provider: FLYNN ROJO Report Released Date/Time: Sep 08, 2023 04:05 PM Reporting Lab: [address] [address] Performing Lab: [facility] [address] [address] VITAMIN D (25-OH) 39 ng/mL 20-50 Sep 13, 2023 01:18 PM [facility] ([facility]) MICROALBUMIN CREATININE RATIO PANEL Specimen Type: URINE No comment entered. Ordering Provider: FLYNN ROJO Report Released Date/Time: Sep 08, 2023 04:05 PM Reporting Lab: [address] [address] Performing Lab: [address] [address] MICROALBUMIN/C REATININE RATIO 16.2 mg/g 0-29.9 MICROALBUMIN,Q UANTITATIVE 2.8 mg/dL RR UNAVAIL CREATININE URINE 172.87 mg/dL Sep 13, 2023 01:18 PM [facility] ([facility]) URINALYSIS Specimen Type: URINE Comment: If Glucose = >500 and Ketones are positive, please alert the Physician. Ordering Provider: FLYNN ROJO Report Released Date/Time: Sep 08, 2023 04:05 PM Reporting Lab: [address] [address] Performing Lab: [address] [address] UA COLOR Yellow Yellow UA APPEARANCE Clear Clear UA GLUCOSE NEGATIVE mg/dL Negative UA KETONES NEGATIVE mg/dL Negative UA BLOOD NEGATIVE mg/dL Negative UA PROTEIN 20 mg/dL Negative UA NITRITE NEGATIVE mg/dL Negative UA BILIRUBIN NEGATIVE mg/dL Negative UA SPECIFIC GRAVITY 1.027 H 1.016-1.022 UA pH 5.5 5.0-9.0 UA UROBILINOGEN <2.0 mg/dL <2.0 UA LEUKOCYTE NEGATIVE Negative Sep 13, 2023 01:18 PM [facility] ([facility]) HEMOGLOBIN A1C PANEL Specimen Type: BLOOD [...] Sep 08, 2023 04:05 PM Reporting Lab: [address] [address] [facility] [address] [address] HEMOGLOBIN A1C 6.6 H 4.0-5.6 Sep 13, 2023 01:18 PM [facility] ([facility]) TSH Specimen Type: SERUM No comment entered. Ordering Provider: FLYNN ROJO Report Released Date/Time: Sep 08, 2023 04:05 PM Reporting Lab: [address] [address] Performing Lab: [address] [address] TSH 1.81 u[IU]/mL 0.35-5.00 Sep 13, 2023 01:18 PM [facility] ([facility]) LIVER FUNCTION Specimen Type: SERUM No comment entered. Ordering Provider: FLYNN ROJO Report Released Date/Time: Sep 08, 2023 04:05 PM Reporting Lab: [address] [address] Performing Lab: [address] [address] PROTEIN,TOTAL 7.1 g/dL 6.0-8.3 ALBUMIN 3.8 g/dL 3.5-5.0 ALKALINE PHOSPHATASE 82 U/L 40-150 AST 16 U/L 5-34 ALT 6 U/L BILIRUBIN, TOTAL 0.8 mg/dL 0.2-1.2 Sep 13, 2023 01:18 PM [facility] ([facility]) BASIC METABOLIC PANEL (non-fasting) Specimen Type: SERUM No comment entered. Ordering Provider: FLYNN ROJO Report Released Date/Time: Sep 08, 2023 04:05 PM Reporting Lab: [address] [address] Performing Lab: [address] [address] UREA NITROGEN 23 mg/dL 7-25 GLUCOSE 120 mg/dL H 65-100 SODIUM 138 mmol/L 135-145 POTASSIUM 3.9 mmol/L 3.5-5.0 CHLORIDE 104 mmol/L 100-110 CO2 25 meq/L 20-30 CREATININE, Serum 1.15 mg/dL 0.50-1.40 eGFR(CKD-EPI 2020) 64 mL/min >60 Sep 13, 2023 01:18 PM [facility] ([facility]) LIPID PANEL, NON FASTING Specimen Type: SERUM No comment entered. Ordering Provider: FLYNN ROJO Report Released Date/Time: Sep 08, 2023 04:05 PM Reporting Lab: [address] [address] Performing Lab: [address] [address] CHOLESTEROL 181 mg/dL TRIGLYCERIDE 142 mg/dL 0-150 LDL calculated 113 mg/dL 0-129 CHOL/HDL 4.5 HDL CHOLESTEROL 40 mg/dL 40-60 Sep 13, 2023 01:18 PM [facility] ([facility]) CBC AND DIFF (AUTO) Specimen Type: BLOOD No comment entered. Ordering Provider: FLYNN ROJO Report Released Date/Time: Sep 08, 2023 04:05 PM Reporting Lab: [address] [address] Performing Lab: [address] [address] WBC 8.48 10*3/uL 4.50-11.00 RBC 5.71 10*6/uL [...] the Encounter. The data comes from all [place] treatment facilities. Date/Time Radiology Report Provider Source Oct 11, 2023 12:[address] LUMBAR SPINE W/O CONT: ERICH KAY [id number] -1940 M Exm Date: OCT 11, 2023@12:58 Req Phys: LENORA ROJO Pat Loc: C[facility]/GO/PACT 1 [facility] (Req'g Loc) Img Loc: [place]/CT Service: Unknown (Case [id number] COMPLETE) CT LUMBAR SPINE W/O CONT (CT Detailed) CPT:61746 Reason for Study: back pain Clinical History: radiating left leg Report Status: Verified Date Reported: OCT 12, 2023 Date Verified: OCT 12, 2023 Vice President For Instruction E-Sig: Report: CT LUMBAR SPINE W/O CONT HISTORY: back pain COMPARISON: None TECHNIQUE: CT of the lumbar spine performed without contrast. Images were received by the [place] [facility] (NTP) for interpretation. RADIATION [...] chronic. Correlate clinically. READING PHYSICIAN: Mir Nuñez -[phone] 10/12/2023 10:03 [facility] National Teleradiology Program [phone] (For Medical Practitioner Use Only) Attention Patients / Veterans: If you have questions or concerns about these test results, please contact your ordering provider or primary care team. Primary Diagnostic Code: SIGNIFICANT ABNORMALITY, ATTN NEEDED Primary Interpreting Staff: RADIOLOGY,OUTSIDE SERVICE, Staff Physician / RADIOLOGY,OUTSIDE SERVICE [facility] Encounter Notes: All associated encounter notes This section contains the clinical notes associated to the Encounter. Date/Time Encounter Note(s) Provider Source Sep 14, 2023 02:08 PM NONVA NOTE: LOCAL TITLE: NON-VA MEDICAL RECORD SUMMARY STANDARD TITLE: NONVA NOTE DATE OF NOTE: SEP 14, 2023@14:08 ENTRY DATE: SEP 14, 2023@14:08:50 AUTHOR: TODD DANIELS COSIGNER: URGENCY: STATUS: COMPLETED COPIED & PASTED FROM [facility] NURSE NOTE [facility] Nurse Date of Encounter: 09/13/2023 Author: Abigail Mares RN September 13, 2023 Dear Lenora Rojo MD, I have seen a mutual patient, Erich Kay ( 44) at his home for a follow-up visit relating to his toe. Jose saw his Fire Equipment Inspector 2 weeks ago and has prescribed dressing changes 3X week on the 3rd toe Right Foot. At the tip of the toe there is a wound (unhealing), which appears to be a large callous. Since MondaySep 11, it has been draining a moderate amount of white pus-like drainage- there is a small pen-tip sized hole into the wound in which the drainage is coming out. There is not redness of the toe but it is intermittently painful. Jose has gone for an X-ray last week to r/o infection, but has not heard the results yet (assuming it was negative as I hope he would have been told if otherwise). VS today: 98.3, 100s, 20, 115/79 and 98%RA. During my visit today, I also noted a new developing area of the inner plantar surface of the LEFT FOOT. It was discolored dark red (deep tissue?) with an area of soft white skin at the base of the area- I am worried about a developing wound- could you please look at this during his appt on MondaySep 15. I will also send this note to Jose's Fire Equipment Inspector Dr. Goddard in [place]. Thank you very much, Abigail Mares RN, [facility] [address] Nurse /kasia/ TODD DANIELS RN REGISTERED NURSE Signed: 09/14/2023 14:15 Receipt Acknowledged By: 09/22/2023 09:46 /kasia/ LENORA ROJO MD PHYSICIAN TODD DANIELS ([facility])
--- OUTSIDE RECORDS SUMMARY | 2024-08-07 12:17 | XMS_ITS | Encounter Summary ---
Author Name [facility] Organization [facility] [place] Address [address] [place] [address] Care Team Providers Care Condominium Manager Name Role Phone LENORA DEJESUS Primary [...] Jul 31, 2014 MEDICAR E SUPPLEM E [id number] [phone] FR GAMALIEL KAY PATIENT [facility] MEDICARE SUPPLEMEN [facility] ARE SUPP Jul 31, 2014 SUPP [id number] [phone] FR GAMALIEL KAY PATIENT MEDICARE (WNR) MEDICARE (M) PART A Jan 29, 2004 PART A [id number] [phone] FR GAMALIEL KAY PATIENT MEDICARE (WNR) MEDICARE (M) PART B Jan 29, 2004 PART B [id number] [phone] FR GAMALIEL KAY PATIENT [facility] (WNR) MEDICARE ADVANTAGE [facility] ([facility]) Jul 31, 2023 [id number] [phone] FR GAMALIEL KAY PATIENT [facility] (WNR) MEDICARE ADVANTAGE [facility] (WNR) Jul 31, 2023 [id number] [phone] FR GAMALIEL KAY PATIENT Selected Encounter This section includes the information on record at OR for the Encounter. Date/Time Encounter Type Encounter Description Reason Provider Source Oct 03, 2023 11:30 AM PRO PHONE CALL 21-30 MIN TELEPHONE PRIMARY CARE ICD-10-CM E11.9 Type 2 diabetes mellitus without complications RITA SANDERSON [facility] Encounter Template Text not used by [place] Assessments - Encounter Diagnoses This section includes the primary and secondary diagnoses documented for the Encounter. Date/Time Primary/Secondary Diagnosis Diagnosis Name Provider Source Oct 03, 2023 11:30 AM PRIMARY Type 2 diabetes mellitus without complications RITA SANDERSON [place] Plan of Treatment: Future Appointments (+ 6 [...] AMBULATORY - PSYCHIATRY [place] [facility] [place] [facility] Oct 10, 2023 02:00 PM AMBULATORY - MEDICINE [facility] ([facility]) Oct 11, 2023 01:00 PM AMBULATORY - NONE OR [facility] [place] [facility] Oct 16, 2023 02:00 PM AMBULATORY - MEDICINE OR C [facility] [place] [facility] Oct 24, 2023 11:30 AM AMBULATORY - MEDICINE OR C [facility] [place] [facility] Oct 26, 2023 01:30 PM AMBULATORY - NEUROLOGY OR [facility] [place] [facility] Nov 13, 2023 01:00 PM AMBULATORY - MEDICINE OR C [facility] [place] [facility] December 11, 2023 10:30 AM AMBULATORY - MEDICINE OR C [facility] [place] [facility] December 20, 2023 09:00 AM AMBULATORY - MEDICINE OR C [facility] [place] [facility] December 20, 2023 02:00 PM AMBULATORY - MEDICINE [facility] ([facility]) Jan 08, 2024 10:30 AM AMBULATORY - MEDICINE [facility] [place] [facility] Jan 11, 2024 01:00 PM AMBULATORY - MEDICINE OR C [facility] [place] [facility] Jan 30, 2024 01:00 PM AMBULATORY - MEDICINE OR C [facility] [place] [facility] Mar 27, 2024 01:00 PM AMBULATORY - MEDICINE [facility] ([facility]) Apr 04, 2024 08:00 AM AMBULATORY - MEDICINE [facility] Active, Pending, and Scheduled Orders This section includes a listing of several types of active, pending, and scheduled orders, including clinic medications orders, diagnostic test orders, procedure orders and consult orders; where the start date of the order is 45 days before the date of the Encounter or 45 days after the date of theEncounter. The data comes from all [place] treatment facilities. Test Date/Time Test Type Test Details Facility Name 2023 01:37 PM Consult Order [facility]NEUROLOGY Cons Hall Coordinator's Choice [facility] Lab Results: +/- 30 days of [...] Range Comment Sep 13, 2023 01:18 PM [place] ([facility]) VITAMIN D (25-OH) Specimen Type: SERUM No comment entered. Ordering Provider: FLYNN DEJESUS Report Released Date/Time: Sep 08, 2023 04:05 PM Reporting Lab: [address] [address] Performing Lab: [address] [address] VITAMIN D (25-OH) 39 ng/mL 20-50 Sep 13, 2023 01:18 PM [place] ([facility]) VITAMIN B12 Specimen Type: SERUM No comment entered. Ordering Provider: FLYNN DEJESUS Report Released Date/Time: Sep 08, 2023 04:05 PM Reporting Lab: [address] [address] Performing Lab: [address] [address] VITAMIN B12 359 pg/mL 200-900 Sep 13, 2023 01:18 PM [facility] ([facility]) MICROALBUMIN CREATININE RATIO PANEL Specimen Type: URINE No comment entered. Ordering Provider: FLYNN DEJESUS Report Released Date/Time: Sep 08, 2023 04:05 PM Reporting Lab: [address] [address] Performing Lab: [address] [address] MICROALBUMIN/C REATININE RATIO 16.2 mg/g 0-29.9 MICROALBUMIN,Q [...] Sep 08, 2023 04:05 PM Reporting Lab: [address] [address] Performing Lab: [address] [address] HEMOGLOBIN A1C 6.6 H 4.0-5.6 Sep 13, 2023 01:18 PM [facility] ([facility]) URINALYSIS Specimen Type: URINE Comment: If Glucose = >500 and Ketones are positive, please alert the Physician. Ordering Provider: FLYNN DEJESUS Report Released Date/Time: Sep 08, 2023 04:05 PM Reporting Lab: [address] [place] [address] Performing Lab: [address] [address] UA COLOR Yellow Yellow UA APPEARANCE Clear Clear UA GLUCOSE NEGATIVE mg/dL Negative UA KETONES NEGATIVE mg/dL Negative UA BLOOD NEGATIVE mg/dL Negative UA PROTEIN 20 mg/dL Negative UA NITRITE NEGATIVE mg/dL Negative UA BILIRUBIN NEGATIVE mg/dL Negative UA SPECIFIC GRAVITY 1.027 H 1.016-1.022 UA pH 5.5 5.0-9.0 UA UROBILINOGEN <2.0 mg/dL <2.0 UA LEUKOCYTE NEGATIVE Negative Sep 13, 2023 01:18 PM [place] ([facility]) TSH Specimen Type: SERUM No comment entered. Ordering Provider: FLYNN DEJESUS Report Released Date/Time: Sep 08, 2023 04:05 PM Reporting Lab: [address] [address] Performing Lab: [address] [address] TSH 1.81 u[IU]/mL 0.35-5.00 Sep 13, 2023 01:18 PM [place] ([facility]) BASIC METABOLIC PANEL (non-fasting) Specimen Type: SERUM No comment entered. Ordering Provider: FLYNN DEJESUS Report Released Date/Time: Sep 08, 2023 04:05 PM Reporting Lab: [address] [address] Performing Lab: [address] [address] UREA NITROGEN 23 mg/dL 7-25 GLUCOSE 120 mg/dL H 65-100 SODIUM 138 mmol/L 135-145 POTASSIUM 3.9 mmol/L 3.5-5.0 CHLORIDE 104 mmol/L 100-110 CO2 25 meq/L 20-30 CREATININE, Serum 1.15 mg/dL 0.50-1.40 eGFR(CKD-EPI 2020) 64 mL/min >60 Sep 13, 2023 01:18 PM [place] ([facility]) LIVER FUNCTION Specimen Type: SERUM No comment entered. Ordering Provider: FLYNN DEJESUS Report Released Date/Time: Sep 08, 2023 04:05 PM Reporting Lab: [address] [address] Performing Lab: [address] [address] PROTEIN,TOTAL 7.1 g/dL 6.0-8.3 ALBUMIN 3.8 g/dL 3.5-5.0 ALKALINE PHOSPHATASE 82 U/L 40-150 AST 16 U/L 5-34 ALT 6 U/L BILIRUBIN, TOTAL 0.8 mg/dL 0.2-1.2 Sep 13, 2023 01:18 PM [place] ([facility]) LIPID PANEL, NON FASTING Specimen Type: SERUM No comment entered. Ordering Provider: FLYNN DEJESUS Report Released Date/Time: Sep 08, 2023 04:05 PM Reporting Lab: [address] [address] Performing Lab: [address] [address] CHOLESTEROL 181 mg/dL TRIGLYCERIDE 142 mg/dL 0-150 LDL calculated 113 mg/dL 0-129 CHOL/HDL 4.5 HDL CHOLESTEROL 40 mg/dL 40-60 Sep 13, 2023 01:18 PM [place] ([facility]) CBC AND DIFF (AUTO) Specimen Type: BLOOD No comment entered. Ordering Provider: FLYNN DEJESUS Report Released Date/Time: Sep 08, 2023 04:05 PM Reporting Lab: [address] [address] Performing Lab: [address] [address] WBC 8.48 10*3/uL 4.50-11.00 RBC 5.71 10*6/uL H 4.23-5.66 HGB 16.6 g/dL 12.8-17 HCT 49.8 39.2-50.4 MCV 87.2 fL 82-99 MCHC 33.3 g/dL 30.8-35.1 PLT 242 10*3/uL 140-360 RDW-CV 13.7 12.0-16.0 [place], Abs 0.73 10*3/uL 0.30-1.10 MCH 29.1 pg 26.2-32.6 Neut % 71.1 43.7-75.8 Lymph % 18.8 14.0-42.3 [place] % 8.6 5.1-13.7 Eos % 0.6 0.4-6.8 [...] the Encounter. The data comes from all [place] treatment facilities. Date/Time Radiology Report Provider Source Oct 11, 2023 12:[address] LUMBAR SPINE W/O CONT: MUKUL KAY [id number] -[id number] M Ex Date: OCT 11, 2023@12:58 Req Phys: LENORA DEJESUS Pat Loc: CWM/GO/PACT 1 WH (Req'g Loc) Img Loc: NHM/CT Service: Unknown (Case [id number] COMPLETE) CT LUMBAR SPINE W/O CONT (CT Detailed) CPT:44864 Reason for Study: back pain Clinical History: radiating left leg Report Status: Verified Date Reported: OCT 12, 2023 Date Verified: OCT 12, 2023 Dry Sander E-Sig: Report: CT LUMBAR SPINE W/O CONT HISTORY: back pain COMPARISON: None TECHNIQUE: CT of the lumbar spine performed without contrast. Images were received by the [place] National Teleradiology Program (NTP) for interpretation. RADIATION [...] chronic. Correlate clinically. READING PHYSICIAN: Mir Nuñez -[id number] 10/12/2023 10:03 PDT [facility] National Teleradiology Program [phone] (For Medical Practitioner Use Only) Attention Patients / Veterans: If you have questions or concerns about these test results, please contact your ordering provider or primary care team. Primary Diagnostic Code: SIGNIFICANT ABNORMALITY, ATTN NEEDED Primary Interpreting Staff: RADIOLOGY,OUTSIDE SERVICE, Staff Physician / RADIOLOGY,OUTSIDE SERVICE OR [facility] [place] [facility] Encounter Notes: All associated encounter notes This section contains the clinical notes associated to the Encounter. Date/Time Encounter Note(s) Provider Source Oct 04, 2023 12:37 PM ADDENDUM: LOCAL TITLE: Addendum STANDARD TITLE: ADDENDUM DATE OF NOTE: OCT 04, 2023@12:37:53 ENTRY DATE: OCT 04, 2023@12:37:53 AUTHOR: RITA SANDERSON EXP COSIGNER: URGENCY: STATUS: COMPLETED AMSA, please schedule CWM/SO/PHARM/PACT 3 TEL on 10/24/23 at 11:30. Thank you. /kasia/ Rita Sanderson PharmD Clinical Pharmacist Practitioner Signed: 10/04/2023 12:38 Receipt Acknowledged By: 10/04/2023 13:07 /kasia/ PRINCE JAIN ADVANCED ROLLER BEARING INSPECTOR --- Original Document --- 10/03/23 CONSULT REPORT/PHARMACY: Briefly, MUKUL KAY is a 82 year old WHITE MALE [place] referred to the [facility] clinical pharmacist practitioner clinic for comprehensive medication management. Patient's identity was confirmed using at least two indicators. Subjective: CURRENT DIABETES MEDICATIONS: - Glimepiride 20mg once daily Medication Adherence: Rarely misses doses Tobacco: None Alcohol: Occasionally has a beer (once every 2 weeks) Marijuana/Illicit Drugs: Just ordered CBD to treat some pain Typical Diet: B: Eggs & homefries w/ juice or coffee; L: Occitan takeout D: Chicken with veggies, sweet potatoes; sometimes pork or steak Snacks: corn chips; pitted dried dates; dried prunes Drinks: Juice, coffee, Exercise/Activity: -Activities: Rarely, uses a walker to move around -Minutes/week spent doing moderate intensity or greater: Minimal SMBG: Not checking Hypoglycemia: No reported issues lately Objectives: Vitals SVSO - Vital Select Outpat. Measurement DT TEMP RESP PULSE POx BP F(C) (L/MIN)(%) 09/22/2023 13:05 98.2(36.8) 20 90 94 123/83 Labs: HEMOGLOBIN A1C TREND Collection DT Spec [...] TIMES A DAY FOR PARKINSON'S DISEASE 3) FUROSEMIDE 20MG TAB TAKE ONE TABLET BY MOUTH ONCE ACTIVE DAILY TO REMOVE FLUID/CONTROL BLOOD PRESSURE 4) GLIMEPIRIDE 2MG TAB TAKE ONE TABLET BY MOUTH ONCE ACTIVE DAILY FOR TYPE 2 DIABETES MELLITUS 5) KETOCONAZOLE 2% SHAMPOO SHAMPOO SMALL AMOUNT ACTIVE TOPICALLY TWICE A WEEK NEEDED APPLY FOR 8 WEEKS, THEN NEEDED 6) METOPROLOL TARTRATE 50MG TAB TAKE ONE TABLET BY MOUTH ACTIVE TWICE DAILY FOR BLOOD PRESSURE/HEART Remote Medications: No Active Remote Medications for this patient Allergy Assessment: LISINOPRIL Assessment: DIABETES Diabetes control is at goal. He is open to a trial of metformin and stopping glimepiride, in order to reduce risk for hypoglycemia, given age and tight A1c control. Hgb A1c Goal Fasting/Preprandial BG Goal Bedtime BG Goal <7-7.5% 80-130 mg/dL 80-180 mg/dL CARDIOVASCULAR - Blood Pressure - Well controlled - ASCVD - no statin or aspirin at this time PREVENTIVE CARE - Most recent visit to Podiatry: Follows closely with a [facility] Chemistry Lecturer - Most recent visit to Optometry: 05/2023, Diabetes Mellitus Type II with no retinopathy or macular edema OU Plan: -Start metformin SA 500mg once daily for 1 week, then increase to 1000mg once daily. -Stop glimepiride when starting metformin -Medications reconciled -Otherwise continue current medications EDUCATION -A shared decision-making approach was used in the development of this plan, involving the , clinician, and any caregivers present. The [place] was provided the opportunity express questions or concerns, and the plan was adjusted as needed to address these concerns. -Reviewed with any new medications, changes to the medication list, education, and plan from today's visit. Patient (and/or caregiver) verbalized understanding of the plan, including possible known risks and benefits, and had no additional questions. RTC: 3 weeks Time spent with patient: 30 minutes PharmD tool: CORETTA PharmMary Pharmacotherapy Rem V12: PHARMACIST INTERVENTIONS: TYPE 2 DIABETES MELLITUS Medication Intervention(s) Discontinue and/or change to different medication Discontinue and/or change to different medication due to other reason Initiate new medication Medication reconciliation (changes to active VA and non-VA medication lists to reconcile differences) No changes to medication lists made (medication review completed, no discrepancies identified) /kasia/ Rita Sanderson PharmD Clinical Pharmacist Practitioner Signed: 10/04/2023 12:37 RITA SANDERSON [place] Oct 03, 2023 03:03 PM PHARMACY CONSULT: LOCAL TITLE: CONSULT REPORT/PHARMACY STANDARD TITLE: PHARMACY CONSULT DATE OF NOTE: OCT 03, 2023@15:03 ENTRY DATE: OCT 03, 2023@15:04:10 AUTHOR: RITA SANDERSON EXP COSIGNER: URGENCY: STATUS: COMPLETED CONSULT REPORT/PHARMACY Has ADDENDA Briefly, MUKUL KAY is a 82 year old WHITE MALE [facility] for comprehensive medication management. Patient's identity was confirmed using at least two indicators. Subjective: CURRENT DIABETES MEDICATIONS: - Glimepiride 20mg once daily Medication Adherence: Rarely misses doses Tobacco: None Alcohol: Occasionally has a beer (once every 2 weeks) Marijuana/Illicit Drugs: Just ordered CBD to treat some pain Typical Diet: B: Eggs & homefries w/ juice or coffee; L: Occitan takeout D: Chicken with veggies, sweet potatoes; sometimes pork or steak Snacks: corn chips; pitted dried dates; dried prunes Drinks: Juice, coffee, Exercise/Activity: -Activities: Rarely, uses a walker to move around -Minutes/week spent doing moderate intensity or greater: Minimal SMBG: Not checking Hypoglycemia: No reported issues lately Objectives: Vitals SVSO - Vital Select Outpat. Measurement DT TEMP RESP PULSE POx BP F(C) (L/MIN)(%) 09/22/2023 13:05 98.2(36.8) 20 90 94 123/83 Labs: HEMOGLOBIN A1C TREND Collection DT Spec [...] 13:18 SERUM CO2 25 mEq/L 20 - 09/13/2023 13:18 SERUM CREATININE, Serum 1.15 mg/dL [...] TIMES A DAY FOR PARKINSON'S DISEASE 3) FUROSEMIDE 20MG TAB TAKE ONE TABLET BY MOUTH ONCE ACTIVE DAILY TO REMOVE FLUID/CONTROL BLOOD PRESSURE 4) GLIMEPIRIDE 2MG TAB TAKE ONE TABLET BY MOUTH ONCE ACTIVE DAILY FOR TYPE 2 DIABETES MELLITUS 5) KETOCONAZOLE 2% SHAMPOO SHAMPOO SMALL AMOUNT ACTIVE TOPICALLY TWICE A WEEK NEEDED APPLY FOR 8 WEEKS, THEN NEEDED 6) METOPROLOL TARTRATE 50MG TAB TAKE ONE TABLET BY MOUTH ACTIVE TWICE DAILY FOR BLOOD PRESSURE/HEART Remote Medications: No Active Remote Medications for this patient Allergy Assessment: LISINOPRIL Assessment: DIABETES Diabetes control is at goal. He is open to a trial of metformin and stopping glimepiride, in order to reduce risk for hypoglycemia, given age and tight A1c control. Hgb A1c Goal Fasting/Preprandial BG Goal Bedtime BG Goal <7-7.5% 80-130 mg/dL 80-180 mg/dL CARDIOVASCULAR - Blood Pressure - Well controlled - ASCVD - no statin or aspirin at this time PREVENTIVE CARE - Most recent visit to Podiatry: Follows closely with a [facility] Chemistry Lecturer - Most recent visit to Optometry: 05/2023, Diabetes Mellitus Type II with no retinopathy or macular edema OU Plan: -Start metformin SA 500mg once daily for 1 week, then increase to 1000mg once daily. -Stop glimepiride when starting metformin -Medications reconciled -Otherwise continue current medications EDUCATION [...] benefits, and had no additional questions. RTC: 3 weeks Time spent with patient: 30 minutes PharmD tool: CORETTA PharmD Pharmacotherapy Rem V12: PHARMACIST INTERVENTIONS: TYPE 2 DIABETES MELLITUS Medication Intervention(s) Discontinue and/or change to different medication Discontinue and/or change to different medication due to other reason Initiate new medication Medication reconciliation (changes to active VA and non-VA medication lists to reconcile differences) No changes to medication lists made (medication review completed, no discrepancies identified) /kasia/ Rita Sanderson PharmD Clinical Pharmacist Practitioner Signed: 10/04/2023 12:37 10/04/2023 ADDENDUM STATUS: COMPLETED AMSA, please schedule CWM/SO/PHARM/PACT 3 TEL on 10/24/23 at 11:30. Thank you. /kasia/ Rita Sanderson PharmD Clinical Pharmacist Practitioner Signed: 10/04/2023 12:38 Receipt Acknowledged By: 10/04/2023 13:07 /kasia/ PRINCE JAIN ADVANCED ROLLER BEARING INSPECTOR 10/13/2023 ADDENDUM STATUS: COMPLETED Leandro reports terrible diarhea once starting Metformin. /kasia/ LENORA DEJESUS MD PHYSICIAN Signed: 10/13/2023 16:31 RITA SANDERSON [place]
--- OUTSIDE RECORDS SUMMARY | 2024-08-07 12:17 | XMS_ITS | Encounter Summary ---
Author Name [facility] [place] Address [address] [place] [address] Care Team Providers Care Domestic Technician Name Role Phone LENORA DEJESUS Primary [...] Jul 31, 2014 MEDICAR E SUPPLEM E [id number] [phone] FR GAMALIEL KAY PATIENT [facility] MEDICARE SUPPLEMEN [place]ANGELIST[place] MEDIC ARE SUPP Jul 31, 2014 SUPP [id number] [phone] FR GAMALIEL KAY PATIENT MEDICARE (WNR) MEDICARE (M) PART A Jan 29, 2004 PART A [id number] [phone] FR GAMALIEL KAY PATIENT MEDICARE (WNR) MEDICARE (M) PART B Jan 29, 2004 PART B [id number] [phone] FR GAMALIEL KAY PATIENT [facility] (WNR) MEDICARE ADVANTAGE [facility] Jul 31, 2023 [id number] RAHUL, GAMALIEL PATIENT [facility] MCR (WNR) MEDICARE ADVANTAGE MCR (WNR) Jul 31, 2023 [id number] [phone] FR GAMALIEL KAY PATIENT Selected Encounter This section includes the information on record at [place] for the Encounter. Date/Time Encounter Type Encounter Description Reason Pro vider Source Sep 06, 2023 12:00 AM Outpatient Encounter EVENT (HISTORICAL) IHE Encounter Template Text not used by [place] Plan of Treatment: Future Appointments (+ 6 months) and Future Tests (+/- 45 days) The Plan of Treatment section includes future care activities for the patient from all [place] treatmentfacilities. This section includes future appointments and future orders which are active, pending or scheduled. Future Appointments This section includes appointments that were scheduled to occur 6 months from the date of the Encounter, up to a maximum of 20 appointments. The data comes from all [place] treatment facilities. Appointment Date/Time Appointment Type Appointme nt Facility Name Sep 19, 2023 01:30 PM AMBULATORY - MEDICINE [place] [facility] [place] [facility] Sep 22, 2023 01:00 PM AMBULATORY - MEDICINE [facility] ([facility]) Oct 03, 2023 11:30 AM AMBULATORY - MEDICINE [place] [facility] [place] [facility] Oct 06, 2023 03:00 PM AMBULATORY - PSYCHIATRY [place] [facility] [place] [facility] Oct 10, 2023 02:00 PM AMBULATORY - MEDICINE [facility] ([facility]) Oct 11, 2023 01:00 PM AMBULATORY - NONE [place] [facility] [facility] Oct 16, 2023 02:00 PM AMBULATORY - MEDICINE [place] [facility] [place] [facility] Oct 24, 2023 11:30 AM AMBULATORY - MEDICINE [place] [facility] [place] [facility] Oct 26, 2023 01:30 PM AMBULATORY - NEUROLOGY [place] [facility] [facility] Nov 13, 2023 01:00 PM AMBULATORY - MEDICINE [place] [facility] [place] [facility] December 11, 2023 10:30 AM AMBULATORY - MEDICINE [place] [facility] [place] [facility] December 20, 2023 09:00 AM AMBULATORY - MEDICINE [place] [facility] [place] [facility] December 20, 2023 02:00 PM AMBULATORY - MEDICINE [facility] ([facility] Jan 08, 2024 10:30 AM AMBULATORY - MEDICINE [place] [facility] [place] [facility] Jan 11, 2024 01:00 PM AMBULATORY - MEDICINE [place] [facility] [facility] Jan 30, 2024 01:00 PM [facility]UL[facility] [place] [facility] Lab Results: +/- 30 days of the encounter This section includes the Chemistry and Hematology Lab Results on record with [place] for the patient. Radiology Reports and Pathology Reports are provided separately, in subsequent sections. Lab Results This section contains the Chemistry/Hematology Results that were resulted 30 days before or 30 daysafter the date of the Encounter. Date/Time Source Result Type Result - Unit Interpretation Reference Range Comment Sep 13, 2023 01:18 PM [place] ([facility]) VITAMIN B12 Specimen Type: SERUM No comment entered. Ordering Provider: FLYNN DEJESUS Report Released Date/Time: Sep 08, 2023 04:05 PM Reporting [facility]: [facility] [place] [address] [address] Performing Lab[facility] [address] [address] VITAMIN B12 359 pg/mL 200-900 Sep 13, 2023 01:18 PM [place] ([facility]) VITAMIN D (25-OH) Specimen Type: SERUM No comment entered. Ordering Provider: FLYNN DEJESUS Report Released Date/Time: Sep 08, 2023 04:05 PM Reporting Lab: [place] [facility] [facility] [place] [address] [address] Performing Lab: [place] [facility] [address] [address] VITAMIN D (25-OH) 39 ng/mL 20-50 Sep 13, 2023 01:18 PM [place] ([facility]) MICROALBUMIN CREATININE RATIO PANEL Specimen Type: URINE No comment entered. Ordering Provider: FLYNN DEJESUS Report Released Date/Time: Sep 08, 2023 04:05 PM Reporting Lab: [facility] [address] [address] Performing Lab: [address] [address] MICROALBUMIN/C REATININE RATIO 16.2 mg/g 0-29.9 MICROALBUMIN,Q UANTITATIVE 2.8 mg/dL RR UNAVAIL CREATININE URINE 172.87 mg/dL Sep 13, 2023 01:18 PM [place] ([facility]) URINALYSIS Specimen Type: URINE Comment: If Glucose = >500 and Ketones are positive, please alert the Physician. Ordering Provider: FLYNN DEJESUS Report Released Date/Time: Sep 08, 2023 04:05 PM Reporting Lab: [address] [address] Performing Lab: [address] [address] UA COLOR Yellow Yellow UA APPEARANCE Clear Clear UA GLUCOSE NEGATIVE mg/dL Negative UA KETONES NEGATIVE mg/dL Negative UA BLOOD NEGATIVE mg/dL Negative UA PROTEIN 20 mg/dL Negative UA NITRITE NEGATIVE mg/dL Negative UA BILIRUBIN NEGATIVE mg/dL Negative UA SPECIFIC GRAVITY 1.027 H 1.016-1.022 UA pH 5.5 5.0-9.0 UA UROBILINOGEN <2.0 mg/dL <2.0 UA LEUKOCYTE NEGATIVE Negative Sep 13, 2023 01:18 PM [place] ([facility]) HEMOGLOBIN A1C PANEL Specimen Type: BLOOD [...] Sep 08, 2023 04:05 PM Reporting Lab: [address] [address] Performing Lab: [address] [address] HEMOGLOBIN A1C 6.6 H 4.0-5.6 Sep 13, 2023 01:18 PM [place] ([facility]) TSH Specimen Type: SERUM No comment entered. Ordering Provider: FLYNN DEJESUS Report Released Date/Time: Sep 08, 2023 04:05 PM Reporting Lab: [address] [address] Performing Lab: [address] [address] TSH 1.81 u[IU]/mL 0.35-5.00 Sep 13, 2023 01:18 PM [place] ([facility]) LIVER FUNCTION Specimen Type: SERUM No comment entered. Ordering Provider: FLYNN DEJESUS Report Released Date/Time: Sep 08, 2023 04:05 PM Reporting Lab: [address] [address] Performing Lab: [address] [address] PROTEIN,TOTAL 7.1 g/dL 6.0-8.3 ALBUMIN 3.8 g/dL 3.5-5.0 ALKALINE PHOSPHATASE 82 U/L 40-150 AST 16 U/L 5-34 ALT 6 U/L BILIRUBIN, TOTAL 0.8 mg/dL 0.2-1.2 Sep 13, 2023 01:18 PM [place] ([facility]) BASIC METABOLIC PANEL (non-fasting) Specimen Type: SERUM No comment entered. Ordering Provider: FLYNN DEJESUS Report Released Date/Time: Sep 08, 2023 04:05 PM Reporting Lab: [address] [address] Performing Lab: [address] [address] UREA NITROGEN 23 mg/dL 7-25 GLUCOSE 120 mg/dL H 65-100 SODIUM 138 mmol/L 135-145 POTASSIUM 3.9 mmol/L 3.5-5.0 CHLORIDE 104 mmol/L 100-110 CO2 25 meq/L 20-30 CREATININE, Serum 1.15 mg/dL 0.50-1.40 eGFR(CKD-EPI 2020) 64 mL/min >60 Sep 13, 2023 01:18 PM [place] ([facility]) LIPID PANEL, NON FASTING Specimen Type: SERUM No comment entered. Ordering Provider: FLYNN DEJESUS Report Released Date/Time: Sep 08, 2023 04:05 PM Reporting Lab: [address] [address] Performing Lab: [address] [address] CHOLESTEROL 181 mg/dL TRIGLYCERIDE 142 mg/dL 0-150 LDL calculated 113 mg/dL 0-129 CHOL/HDL 4.5 HDL CHOLESTEROL 40 mg/dL 40-60 Sep 13, 2023 01:18 PM [place] ([facility]) CBC AND DIFF (AUTO) Specimen Type: BLOOD No comment entered. Ordering Provider: FLYNN DEJESUS Report Released Date/Time: Sep 08, 2023 04:05 PM Reporting Lab: [address] [address] Performing Lab: [address] [address] WBC 8.48 10*3/uL 4.50-11.00 RBC 5.71 10*6/uL H 4.23-5.66 HGB 16.6 g/dL 12.8-17 HCT 49.8 39.2-50.4 MCV 87.2 fL 82-99 MCHC 33.3 g/dL 30.8-35.1 PLT 242 10*3/uL 140-360 RDW-CV 13.7 12.0-16.0 [place], Abs 0.73 10*3/uL 0.30-1.10 MCH 29.1 pg 26.2-32.6 Neut % 71.1 43.7-75.8 Lymph % 18.8 14.0-42.3 [place] % 8.6 5.1-13.7 Eos % 0.6 0.4-6.8 [...] Encounter Note(s) Provider Source Sep 06, 2023 12:00 AM NONVA NOTE: LOCAL TITLE: NON-VA OUTPATIENT NOTES STANDARD TITLE: NONVA NOTE DATE OF NOTE: SEP 06, 2023 ENTRY DATE: SEP 21, 2023@14:36:52 AUTHOR: ESE CLANCY EXP COSIGNER: URGENCY: STATUS: COMPLETED VistA Imaging - Scanned Document SCANNED DOCUMENT SIGNATURE NOT REQUIRED Electronically Filed: 09/21/2023 by: ESE DOE [place] [facility]
--- OUTSIDE RECORDS SUMMARY | 2024-08-07 12:17 | XMS_ITS ---
Author Name [facility] [place] [facility] [place] Address [address] [place] [address] Care Team Providers Care Drivers License Examiner Name Role Phone LENORA DEJESUS Primary Care [...] Jul 31, 2014 MEDICAR E SUPPLEM E [id number] [phone] FR GAMALIEL KAY PATIENT [facility] MEDICARE SUPPLEMEN [place]ELIST[place] MEDIC ARE SUPP Jul 31, 2014 SUPP [id number] [phone] FR GAMALIEL KAY PATIENT MEDICARE (WNR) MEDICARE (M) PART A Jan 29, 2004 PART A [id number] [phone] FR GAMALIEL KAY PATIENT MEDICARE (WNR) MEDICARE (M) PART B Jan 29, 2004 PART B [id number] [phone] FR GAMALIEL KAY PATIENT [facility] (WNR) MEDICARE ADVANTAGE [facility] ([facility] Jul 31, 2023 [id number] [phone] RAHUL GAMALIEL PATIENT [facility] MCR (WNR) MEDICARE ADVANTAGE MCR (WNR) Jul 31, 2023 [id number] RAHULFR GAMALIEL MACHADO PATIENT Selected Encounter This section includes the information on record at [place] for the Encounter. Date/Time Encounter Type Encounter Description Reason Pro vider Source Sep 25, 2023 11:22 AM Outpatient Encounter TELEPHONE PRIMARY CARE IHE Encounter Template Text not used by [place] Plan of Treatment: Future Appointments (+ 6 months) and Future Tests (+/- 45 days) The Plan of Treatment section includes future care activities for the patient from all [place] treatmentfacilities. This section includes future appointments and future orders which are active, pending or scheduled. Future Appointments This section includes appointments that were scheduled to occur 6 months from the date of the Encounter, up to a maximum of 20 appointments. The data comes from all [place] treatment facilities. Appointment Date/Time Appointment Type Appointme nt Facility Name Oct 03, 2023 11:30 AM AMBULATORY - MEDICINE [place] [place] [facility] Oct 06, 2023 03:00 PM AMBULATORY - PSYCHIATRY [place] [facility] [place] [facility] Oct 10, 2023 02:00 PM AMBULATORY - MEDICINE [facility] ([facility]) Oct 11, 2023 01:00 PM AMBULATORY - NONE [place] [facility] [place] [facility] Oct 16, 2023 02:00 PM AMBULATORY - MEDICINE [place] [place] [facility] Oct 24, 2023 11:30 AM AMBULATORY - MEDICINE [place] [facility] [place] [facility] Oct 26, 2023 01:30 PM AMBULATORY - NEUROLOGY [place] [facility] [place] [facility] Nov 13, 2023 01:00 PM AMBULATORY - MEDICINE [place] [facility] [place] [facility] December 11, 2023 10:30 AM AMBULATORY - MEDICINE [place] [facility] [place] [facility] December 20, 2023 09:00 AM AMBULATORY - MEDICINE [place] [facility] [place] [facility] December 20, 2023 02:00 PM AMBULATORY - MEDICINE [facility] ([facility]) Jan 08, 2024 10:30 AM AMBULATORY - MEDICINE [place] [facility] [place] [facility] Jan 11, 2024 01:00 PM [facility] Jan 30, 2024 01:00 PM [facility]UL[facility]IC[facility] Active, Pending, and Scheduled Orders This section includes a listing of several types of active, pending, and scheduled orders, including clinic medications orders, diagnostic test orders, procedure orders and consult orders; where the start date of the order is 45 days before the date of the Encounter or 45 days after the date of theEncounter. The data comes from all [place] treatment facilities. Test Date/Time Test Type Test Details Facility Name 2023 01:37 PM Consult Order [facility]-NEUROLOGY Cons Senior Abap Developer's Choice [facility] Lab Results: +/- 30 days of the encounter This section includes the Chemistry and Hematology Lab Results on record with [place] for the patient. Radiology Reports and Pathology Reports are provided separately, in subsequent sections. Lab Results This section contains the Chemistry/Hematology Results that were resulted 30 days before or 30 daysafter the date of the Encounter. Date/Time Source Result Type Result - Unit Interpretation Reference Range Comment Sep 13, 2023 01:18 PM [place] ([facility]) VITAMIN B12 Specimen Type: SERUM No comment entered. Ordering Provider: FLYNN DEJESUS Report Released Date/Time: Sep 08, 2023 04:05 PM Reporting Lab: [address] [address] Performing Lab: [address] [address] VITAMIN B12 359 pg/mL 200-900 Sep 13, 2023 01:18 PM [place] ([facility]) VITAMIN D (25-OH) Specimen Type: SERUM No comment entered. Ordering Provider: FLYNN DEJESUS Report Released Date/Time: Sep 08, 2023 04:05 PM Reporting Lab: [address] [address] Performing Lab: [address] [address] VITAMIN D (25-OH) 39 ng/mL 20-50 Sep 13, 2023 01:18 PM [place] ([facility]) MICROALBUMIN CREATININE RATIO PANEL Specimen Type: URINE No comment entered. Ordering Provider: FLYNN DEJESUS Report Released Date/Time: Sep 08, 2023 04:05 PM Reporting Lab: [address] [address] Performing Lab: [address] [address] MICROALBUMIN/C REATININE RATIO 16.2 mg/g 0-29.9 MICROALBUMIN,Q UANTITATIVE 2.8 mg/dL RR UNAVAIL CREATININE URINE 172.87 mg/dL Sep 13, 2023 01:18 PM [place] ([facility]) URINALYSIS Specimen Type: URINE Comment: If Glucose = >500 and Ketones are positive, please alert the Physician. Ordering Provider: FLYNN DEJESUS Report Released Date/Time: Sep 08, 2023 04:05 PM Reporting Lab: [address] [address] Performing Lab: [address] [address] UA COLOR Yellow Yellow UA APPEARANCE Clear Clear UA GLUCOSE NEGATIVE mg/dL Negative UA KETONES NEGATIVE mg/dL Negative UA BLOOD NEGATIVE mg/dL Negative UA PROTEIN 20 mg/dL Negative UA NITRITE NEGATIVE mg/dL Negative UA BILIRUBIN NEGATIVE mg/dL Negative UA SPECIFIC GRAVITY 1.027 H 1.016-1.022 UA pH 5.5 5.0-9.0 UA UROBILINOGEN <2.0 mg/dL <2.0 UA LEUKOCYTE NEGATIVE Negative Sep 13, 2023 01:18 PM [place] ([facility]) HEMOGLOBIN A1C PANEL Specimen Type: BLOOD Comment: [...] 08, 2023 04:05 PM Reporting Lab: [address] [address] Performing Lab: [address] [address] HEMOGLOBIN A1C 6.6 H 4.0-5.6 Sep 13, 2023 01:18 PM [place] ([facility]) TSH Specimen Type: SERUM No comment entered. Ordering Provider: FLYNN DEJESUS Report Released Date/Time: Sep 08, 2023 04:05 PM Reporting Lab: [address] [address] Performing Lab: [address] [address] TSH 1.81 u[IU]/mL 0.35-5.00 Sep 13, 2023 01:18 PM [place] ([facility]) LIVER FUNCTION Specimen Type: SERUM No comment entered. Ordering Provider: FLYNN DEJESUS Report Released Date/Time: Sep 08, 2023 04:05 PM Reporting Lab: [address] [address] Performing Lab: [address] [address] PROTEIN,TOTAL 7.1 g/dL 6.0-8.3 ALBUMIN 3.8 g/dL 3.5-5.0 ALKALINE PHOSPHATASE 82 U/L 40-150 AST 16 U/L 5-34 ALT 6 U/L BILIRUBIN, TOTAL 0.8 mg/dL 0.2-1.2 Sep 13, 2023 01:18 PM [place] ([facility]) BASIC METABOLIC PANEL (non-fasting) Specimen Type: SERUM No comment entered. Ordering Provider: FLYNN DEJESUS Report Released Date/Time: Sep 08, 2023 04:05 PM Reporting Lab: [address] [address] Performing Lab: [address] [address] UREA NITROGEN 23 mg/dL 7-25 GLUCOSE 120 mg/dL H 65-100 SODIUM 138 mmol/L 135-145 POTASSIUM 3.9 mmol/L 3.5-5.0 CHLORIDE 104 mmol/L 100-110 CO2 25 meq/L 20-30 CREATININE, Serum 1.15 mg/dL 0.50-1.40 eGFR(CKD-EPI 2020) 64 mL/min >60 Sep 13, 2023 01:18 PM [place] ([facility]) LIPID PANEL, NON FASTING Specimen Type: SERUM No comment entered. Ordering Provider: FLYNN DEJESUS Report Released Date/Time: Sep 08, 2023 04:05 PM Reporting Lab: [address] [address] Performing Lab: [address] [address] CHOLESTEROL 181 mg/dL TRIGLYCERIDE 142 mg/dL 0-150 LDL calculated 113 mg/dL 0-129 CHOL/HDL 4.5 HDL CHOLESTEROL 40 mg/dL 40-60 Sep 13, 2023 01:18 PM [place] ([facility]) CBC AND DIFF (AUTO) Specimen Type: BLOOD No comment entered. Ordering Provider: FLYNN DEJESUS Report Released Date/Time: Sep 08, 2023 04:05 PM Reporting Lab: [facility] [address] [facility] [address] Performing Lab: [address] [address] WBC 8.48 10*3/uL 4.50-11.00 RBC 5.71 10*6/uL H 4.23-5.66 HGB 16.6 g/dL 12.8-17 HCT 49.8 39.2-50.4 MCV 87.2 fL 82-99 MCHC 33.3 g/dL 30.8-35.1 PLT 242 10*3/uL 140-360 RDW-CV 13.7 12.0-16.0 [place], Abs 0.73 10*3/uL 0.30-1.10 MCH 29.1 pg 26.2-32.6 Neut % 71.1 43.7-75.8 Lymph % 18.8 14.0-42.3 Tripp % 8.6 5.1-13.7 Eos % 0.6 0.4-6.8 [...] the Encounter. The data comes from all [place] treatment facilities. Date/Time Radiology Report Provider Source Oct 11, 2023 12:[address] LUMBAR SPINE W/O CONT: RAHULMUKUL KEN [id number] -[id number] M Exm Date: OCT 11, 2023@12:58 Req Phys: LENORA DEJESUS Pat Loc: CWM/GO/PACT 1 WH (Req'g Loc) Img Loc: [facility]/CT Service: Unknown (Case [id number] COMPLETE) CT LUMBAR SPINE W/O CONT (CT Detailed) CPT:48182 Reason for Study: back pain Clinical History: radiating left leg Report Status: Verified Date Reported: OCT 12, 2023 Date Verified: OCT 12, 2023 Plate Grainer E-Sig: Report: CT LUMBAR SPINE W/O CONT HISTORY: back pain COMPARISON: None TECHNIQUE: CT of the lumbar spine performed without contrast. Images were received by the [place] National Teleradiology Program (NTP) for interpretation. RADIATION [...] chronic. Correlate clinically. READING PHYSICIAN: Mir Nuñez -[phone] 10/12/2023 10:03 PDT [facility] National Teleradiology Program [phone] (For Medical Practitioner Use Only) Attention Patients / Veterans: If you have questions or concerns about these test results, please contact your ordering provider or primary care team. Primary Diagnostic Code: SIGNIFICANT ABNORMALITY, ATTN NEEDED Primary Interpreting Staff: RADIOLOGY,OUTSIDE SERVICE, Staff Physician / RADIOLOGY,OUTSIDE SERVICE [place] [facility] Encounter Notes: All associated encounter notes This section contains the clinical notes associated to the Encounter. Date/Time Encounter Note(s) Provider Source Sep 25, 2023 11:22 AM ADMINISTRATIVE NOT E: LOCAL TITLE: ADMINISTRATIVE NOTE STANDARD TITLE: ADMINISTRATIVE NOTE DATE OF NOTE: SEP 25, 2023@11:22 ENTRY DATE: SEP 25, 2023@11:22:39 AUTHOR: RITA ANDRADE EXP COSIGNER: URGENCY: STATUS: COMPLETED AMSA, please schedule CWM/SO/PHARM/PACT 3 TEL on 10/03/23 at 11:30, and link it to the pending PHARMACY/[facility] OUTPT consult. Thank you. /kasia/ Rita Kin, PharmD Clinical Pharmacist Practitioner Signed: 09/25/2023 11:23 Receipt Acknowledged By: 09/25/2023 13:08 /es/ PRINCE JAIN ADVANCED TRACTION POWER ENGINEER RITA ANDRADE
--- OUTSIDE RECORDS SUMMARY | 2024-08-07 12:18 | XMS_ITS | Encounter Summary ---
Author Name [place] Organization [facility] Address [address] [place] [id number] Care Team Providers Care Desizing Pad Operator Name Role Phone LENORA DEJESUS Primary [...] Welsh's Name Patient's Relationship to Policy Welsh [facility] MEDICARE SUPPLEMEN [place] MA IND Jul 31, 2014 MEDICAR E SUPPLEM E [id number] [phone] FR GAMALIEL KAY PATIENT [facility] MEDICARE SUPPLEMEN [place] MEDIC ARE SUPP Jul 31, 2014 SUPP [id number] [phone] FR RAHUL EDGISSEL PATIENT MEDICARE (WNR) MEDICARE (M) PART A Jan 29, 2004 PART A [id number] [phone] FR GAMALIEL KAY PATIENT MEDICARE (WN) MEDICARE (M) PART B Jan 29, 2004 PART B [id number] [phone] FR GAMALIEL KAY PATIENT [facility] (WN) MEDICARE ADVANTAGE [facility] ([facility]) Jul 31, 2023 [id number] [phone] FR GAMALIEL KAY PATIENT [facility] (WNR) MEDICARE ADVANTAGE [facility] (WNR) Jul 31, 2023 [id number] [phone] FR GAMALIEL KAY PATIENT Selected Encounter This section includes the information on record at [facility] for the Encounter. Date/Time Encounter Type Encounter Description Reason Pro vider Source IHE Encounter Template Text not used by VA
--- OUTSIDE RECORDS SUMMARY | 2024-08-07 12:18 | XMS_ITS | Encounter Summary ---
Author Name [place] Organization [place] Address [address] [place] [address] Care Team Providers Care Vineyard Supervisor Name Role Phone LENORA DEJESUS Primary Care [...] Jul 31, 2014 MEDICAR E SUPPLEM E [id number] [phone] FR GAMALIEL KAY PATIENT [facility] MEDICARE SUPPLEMEN [place]ELIST[place] MEDIC ARE SUPP Jul 31, 2014 SUPP [id number] [phone] FR GAMALIEL KAY PATIENT MEDICARE (WNR) MEDICARE (M) PART A Jan 29, 2004 PART A [id number] [phone] FR GAMALIEL KAY PATIENT MEDICARE (WNR) MEDICARE (M) PART B Jan 29, 2004 PART B [id number] [phone] FR GAMALIEL KAY PATIENT [facility] (WNR) MEDICARE ADVANTAGE [facility] ([facility]) Jul 31, 2023 [id number] [phone] FR GAMALIEL KAY PATIENT [facility] MCR (WNR) MEDICARE ADVANTAGE MCR (WNR) Jul 31, 2023 [id number] [phone] FR GAMALIEL KAY PATIENT Selected Encounter This section includes the information on record at [place] for the Encounter. Date/Time Encounter Type Encounter Description Reason Pro vider Source Nov 15, 2023 03:08 PM Outpatient Encounter PRIMARY CARE/MEDICINE IHE Encounter Template Text not used by [place] Plan of Treatment: Future Appointments (+ 6 months) and Future Tests (+/- 45 days) The Plan of Treatment section includes future care activities for the patient from all [place] [facility] This section includes future appointments and future orders which are active, pending or scheduled. Future Appointments This section includes appointments that were scheduled to occur 6 months from the date of the Encounter, up to a maximum of 20 appointments. The data comes from all [facility]. Appointment Date/Time Appointment Type Appointme nt Facility Name December 11, 2023 10:30 AM AMBULATORY - MEDICINE [facility] [place] [facility] December 20, 2023 09:00 AM AMBULATORY MEDICINE [facility] [place] [facility] December 20, 2023 02:00 PM AMBULATORY - MEDICINE [facility] ([facility]) Jan 08, 2024 10:30 AM AMBULATORY MEDICINE [facility] [place] [facility] Jan 11, 2024 01:00 PM AMBULATORY MEDICINE [facility] [place] [facility] Jan 30, 2024 01:00 PM AMBULATORY - MEDICINE [facility] [place] [facility] Mar 27, 2024 01:00 PM AMBULATORY - MEDICINE [facility] ([facility]) Apr 04, 2024 08:00 AM AMBULATORY MEDICINE [facility] [place] [facility] May 15, 2024 02:00 PM AMBULATORY - MEDICINE [facility] ([facility]) Active, Pending, and Scheduled Orders This section includes a listing of several types of active, pending, and scheduled orders, including clinic medications orders, diagnostic test orders, procedure orders and consult orders; where the start date of the order is 45 days before the date of the Encounter or 45 days after the date of theEncounter. The data comes from all [facility]. Test Date/Time Test Type Test Details Facility Name 2023 01:37 PM Consult Order COMMUNITY CARE-NEUROLOGY Cons Rate Clerk Passenger's Choice [place] [facility] Encounter Notes: All associated encounter notes This section contains the clinical notes associated to the Encounter. Date/Time Encounter Note(s) Provider Source Nov 15, 2023 03:08 PM NONVA NOTE: LOCAL TITLE: NON-VA HOSPITALIZATIONS/ER STANDARD TITLE: NONVA NOTE DATE OF NOTE: NOV 15, 2023@15:08 ENTRY DATE: NOV 15, 2023@15:08:10 AUTHOR: TODD DANIELS COSIGNER: URGENCY: STATUS: COMPLETED This note is entered for the sole purpose of scanning Non-VA documentation into [employer]. [facility] Date of Admission: 11/06/2023 Date of Discharge: 11/10/2023 Author: Ella Cole MD Discharge Diagnosis Sepsis (A41.9) Diabetic infection of left foot (E11.628) Type 2 diabetes mellitus (E11.9) HTN (hypertension) (I10) Parkinson's disease (G20.A1) Atrial fibrillation (I48.91) Obese class I (Z68.30) Discharge Medications alogliptin (alogliptin 25 mg oral tablet) 1 tab(s) 25 Milligram By Mouth Daily apixaban (Eliquis 5 mg oral tablet) 1 tab(s) 5 Milligram By Mouth 2 times a day Carbidopa-Levodopa (carbidopa-levodopa 25 mg-100 mg oral tablet) 1 tab(s) By Mouth 3 times a day Furosemide (Lasix 20 mg oral tablet) 20 Milligram 1 tablet By Mouth Daily in the afternoon Linezolid (linezolid 600 mg oral tablet) 1 tab(s) 600 Milligram By Mouth Every 12 hours for 7 Days Metoprolol (metoprolol 50 mg oral tablet) 50 Milligram 1 tablet By Mouth 2 times a day Miscellaneous Rx (Misc Rx) Vitamin D/ Vitamin C/ Magnesium 1 tab Oral Daily Medications Started Linezolid 600 mg PO BID 1 week to start PM of 11/10/23 Durable Medical Equipment Discharge recommendations: Rehab (11/08/23) Name of Agency #1: [facility] (11/10/23) Agency Certified Hearing Instrument Dispenser #1: Pinky (11/10/23) Service [facility]. Hammad will arrive for 1pm to bring you there (11/10/23) Ambulatory devices needed: Walker (11/08/23) PCP Follow-Up/Heads-Up Patient admitted for diabetic foot infection of left foot; not concerning for osteo. 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 Patient admitted for sepsis and diabetic foot ulcer of left foot. Sepsis (A41.9): Closed Met sepsis criteria at admission for leukocytosis, tachycardia, and diabetic foot infection Transient hypotension /8, few DBPs in low 50s since Vital signs overall reassuring, leukocytosis has normalized Diabetic infection of left foot (E11.628): History of left foot wound and infection, followed by podiatry who debrided left foot callus on Monday11/01/23. Since that time he had increased pain, swelling, erythema and drainage X-ray of left foot with unchanged neuropathic and fracture deformity of the tarsometatarsal joints. No evidence of osteomyelitis CT w/o findings concerning for osteomyelitis Now s/p I&D on 11/06 without need for further surgical intervention. Patient received 4 days of Vancomycin and Unasyn while hospitalized On discharge, wound with clean base w/o significant drainage or surrounding erythema/edema. Pain greatly improved. Recommendations Per ID, would recommend 7 day course of Linezolid 600 mg BID PO on dc -Reviewed potential interaction between Carbidopa-Levodopa and discussed with clinical pharmacist, incidence quite low and generally safe to proceed. Patient not on other serotonergic agents. Follow final blood cultures, no growth at 48 hrs May benefit from consultation with [facility] regarding his orthotic footwear Addendum by Kelsey REEDER, Ella Shen on November 10, 2023 12:52:46 EDT Patient seen and examined, medical records reviewed. Case discussed with Dr. Garza, home and family living professor PGY 1. Patient's physical exam: General: Alert, in no acute cardiopulmonary distress. Mental Status: Oriented to person, place and time. Normal affect. Head: Normocephalic. Eyes: Pupils are equal, round and reactive to light. Extraocular muscles intact. Ear, Nose and Throat: Oropharynx clear, mucous membranes moist. Ears and nose without masses, lesions or deformities. Trachea midline. Neck: Supple, Full range of motion. Respiratory: Clear to auscultation and percussion. No wheezing, rales or rhonchi. Cardiovascular: Heart sounds normal. No thrills. Regular rate and rhythm, no murmurs, rubs or gallops. Lower extremity without edema bilaterally. Gastrointestinal: Abdomen soft, non-tender, non-distended. Normal bowel sounds. No pulsatile mass. No hepatosplenomegaly. Genitourinary: No costovertebral angle tenderness. Neurologic: Cranial nerves II-XII grossly intact. No focal neurological deficits. Moves all extremities spontaneously. Sensation intact bilaterally. Skin: LLE wound with clean base, no signif secretions. No petechiae or purpura. No edema. 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 Patient was initiated on IV fluids and broad-spectrum antibiotics with vancomycin and Unasyn, sepsis resolved. CT lower extremity showed no evidence of osteomyelitis, surgical team evaluated patient and proceeded with debridement on the left foot wound on 11/06, recommending no further surgical treatment, recommended continuing with antibiotics. Discussed with Dr. Olivo from infectious disease, she recommends on discharge linezolid. Patient is clinically hemodynamically stable today, undergoing physical therapy, with recommendation to proceed to discharge to rehab, with which patient is agreeable. The rest of medical conditions and diagnoses including diabetes mellitus type 2, atrial fibrillation, hypertension, Parkinson's disease as described by Dr. Garza, home and family living professor PGY 1. Patient to follow-up with PCP in 1 week. /kasia/ TODD DANIELS, FAMILIA REGISTERED NURSE Signed: 11/15/2023 15:11 Receipt Acknowledged By: 11/16/2023 10:47 /kasia/ LENORA DEJESUS MD PHYSICIAN TODD DANIELS ([facility])
--- OUTSIDE RECORDS SUMMARY | 2024-08-07 12:18 | XMS_ITS ---
Author Name [place] Address [address] [place] [address] Care Team Providers Care Staff Physical Therapist Name Role Phone LENORA DEJESUS Primary Care [...] Jul 31, 2014 MEDICAR E SUPPLEM E [id number] [phone] FR GAMALIEL KAY PATIENT [facility] MEDICARE SUPPLEMEN EVANGELISTA MEDIC ARE SUPP Jul 31, 2014 SUPP [id number] [phone] FR GAMALIEL KAY PATIENT MEDICARE (WNR) MEDICARE (M) PART A Jan 29, 2004 PART A [id number] [phone] FR GAMALIEL KAY PATIENT MEDICARE (WNR) MEDICARE (M) PART B Jan 29, 2004 PART B [id number] [phone] FR GAMALIEL KAY PATIENT [facility] (WNR) MEDICARE ADVANTAGE [facility] (R) Jul 31, 2023 [id number] [phone] [id number] GAMALIEL MACHADO PATIENT [facility] MCR (WNR) MEDICARE ADVANTAGE MCR (WNR) Jul 31, 2023 [id number] [phone] FR GAMALIEL KAY PATIENT Selected Encounter This section includes the information on record at [place] for the Encounter. Date/Time Encounter Type Encounter Description Reason Pro vider Source Oct 23, 2023 04:13 PM Outpatient Encounter COMMUNITY CARE CONSULT IHE Encounter Template Text not used by VA Plan of Treatment: Future Appointments (+ 6 months) and Future Tests (+/- 45 days) The Plan of Treatment section includes future care activities for the patient from all [place] treatmentfacilities. This section includes future appointments and future orders which are active, pending or scheduled. Future Appointments This section includes appointments that were scheduled to occur 6 months from the date of the Encounter, up to a maximum of 20 appointments. The data comes from all [place] treatment facilities. Appointment Date/Time Appointment Type Appointme nt Facility Name Oct 24, 2023 11:30 AM AMBULATORY - MEDICINE [place] [facility] Oct 26, 2023 01:30 PM AMBULATORY - NEUROLOGY [place] [facility] Nov 13, 2023 01:00 PM AMBULATORY - MEDICINE [place] [facility] [place] [facility] December 11, 2023 10:30 AM AMBULATORY - MEDICINE [place] [facility] December 20, 2023 09:00 AM AMBULATORY - MEDICINE [place] [facility] [place] [facility] December 20, 2023 02:00 PM AMBULATORY - MEDICINE [facility] Jan 08, 2024 10:30 AM AMBULATORY - MEDICINE [place] [facility] Jan 11, 2024 01:00 PM AMBULATORY - MEDICINE [place] [facility] [place] [facility] Jan 30, 2024 01:00 PM AMBULATORY - MEDICINE [place] [facility] Mar 27, 2024 01:00 PM AMBULATORY - MEDICINE [facility] ([facility]) Apr 04, 2024 08:00 AM AMBULATORY - MEDICINE [place] [facility] Active, Pending, and Scheduled Orders This section includes a listing of several types of active, pending, and scheduled orders, including clinic medications orders, diagnostic test orders, procedure orders and consult orders; where the start date of the order is 45 days before the date of the Encounter or 45 days after the date of theEncounter. The data comes from all [place] treatment facilities. Test Date/Time Test Type Test Details Facility Name 2023 01:37 PM Consult Order COMMUNITY [facility]-NEUROLOGY Cons Stenographer Secretary's Choice [place] [facility] Radiology Reports: +/- 30 days of the [...] the Encounter. The data comes from all [place] treatment facilities. Date/Time Radiology Report Provider Source Oct 11, 2023 12:[address] LUMBAR SPINE W/O CONT: MUKUL KAY MIKE [id number] -1940 M Exm Date: OCT 11, 2023@12:58 Req Phys: LENORA DEJESUS Pat Loc: CWM/GO/PACT 1 WH (Req'g Loc) Img Loc: NHM/CT Service: Unknown (Case [id number] COMPLETE) CT LUMBAR SPINE W/O CONT (CT Detailed) CPT:03862 Reason for Study: back pain Clinical History: radiating left leg Report Status: Verified Date Reported: OCT 12, 2023 Date Verified: OCT 12, 2023 Cone Worker E-Sig: Report: CT LUMBAR SPINE W/O CONT HISTORY: back pain COMPARISON: None TECHNIQUE: CT of the lumbar spine performed without contrast. Images were received by the [place] National Teleradiology Program (NTP) for interpretation. RADIATION [...] chronic. Correlate clinically. READING PHYSICIAN: Mir Nuñez -[phone] 10/12/2023 10:03 PDT [facility] [employer] Teleradiology Program [phone] (For Medical Practitioner Use Only) Attention Patients / Veterans: If you have questions or concerns about these test results, please contact your ordering provider or primary care team. Primary Diagnostic Code: SIGNIFICANT ABNORMALITY, ATTN NEEDED Primary Interpreting Staff: RADIOLOGY,OUTSIDE SERVICE, Staff Physician / RADIOLOGY,OUTSIDE SERVICE [facility] Encounter Notes: All associated encounter notes This section contains the clinical notes associated to the Encounter. Date/Time Encounter Note(s) Provider Source Oct 23, 2023 04:13 PM NONVA NOTE: LOCAL TITLE: COMMUNITY CARE-CARE COORDINATION PLAN NOTE STANDARD TITLE: NONVA NOTE DATE OF NOTE: OCT 23, 2023@16:13 ENTRY DATE: OCT 23, 2023@16:13:26 AUTHOR: BRYAN LONDON EXP COSIGNER: URGENCY: STATUS: COMPLETED COMMUNITY CARE-CARE COORDINATION PLAN NOTE Has ADDENDA [place] is requesting a pain management or physiatry referral to address back pain. If in agreement, ortho consult can be forwarded. Please advise. Thank you /kasia/ BRYAN LONDON [facility] BSN RN KENNETH Signed: 10/23/2023 16:14 Receipt Acknowledged By: 10/24/2023 13:58 /es/ TODD DANIELS, RN REGISTERED NURSE 10/24/2023 13:41 /kasia/ LENORA DEJESUS MD PHYSICIAN 10/24/2023 ADDENDUM STATUS: COMPLETED [place] was reffered to pain clinic and has appnt 11/19. /kasia/ LENORA DEJESUS MD PHYSICIAN Signed: 10/24/2023 13:41 BRYAN LONDON CN[facility]
--- OUTSIDE RECORDS SUMMARY | 2024-08-07 12:18 | XMS_ITS | Encounter Summary ---
Author Name [place] Address [address] [place] [address] Care Team Providers Care Conference Reservationist Name Role Phone LENORA DEJESUS Primary Care [...] Jul 31, 2014 MEDICAR E SUPPLEM E [id number] [phone] FR GAMALIEL KAY PATIENT [facility] MEDICARE SUPPLEMEN EVANGELISTA MEDIC ARE SUPP Jul 31, 2014 SUPP [id number] [phone] FR GAMALIEL KAY PATIENT MEDICARE (WNR) MEDICARE (M) PART A Jan 29, 2004 PART A [id number] [phone] FR GAMALIEL KAY PATIENT MEDICARE (WNR) MEDICARE (M) PART B Jan 29, 2004 PART B [id number] [phone] FR GAMALIEL KAY PATIENT [facility] (WNR) MEDICARE ADVANTAGE [facility] ([facility]) Jul 31, 2023 [id number] [phone] FR GAMALIEL KAY PATIENT [facility] MCR (WNR) MEDICARE ADVANTAGE MCR (WNR) Jul 31, 2023 [id number] [phone] FR GAMALIEL KAY PATIENT Selected Encounter This section includes the information on record at [place] for the Encounter. Date/Time Encounter Type Encounter Description Reason Pro vider Source Nov 06, 2023 12:00 AM Outpatient Encounter EVENT (HISTORICAL) IHE Encounter Template Text not used by [place] Plan of Treatment: Future Appointments (+ 6 months) and Future Tests (+/- 45 days) The Plan of Treatment section includes future care activities for the patient from all [place] [facility]. This section includes future appointments and future orders which are active, pending or scheduled. Future Appointments This section includes appointments that were scheduled to occur 6 months from the date of the Encounter, up to a maximum of 20 appointments. The data comes from all [facility]. Appointment Date/Time Appointment Type Appointme nt Facility Name Nov 13, 2023 01:00 PM AMBULATORY - MEDICINE [facility] [place] [facility] December 11, 2023 10:30 AM AMBULATORY - MEDICINE [facility] [place] [facility] December 20, 2023 09:00 AM AMBULATORY MEDICINE [facility] [place] [facility] December 20, 2023 02:00 PM AMBULATORY - MEDICINE [facility] Jan 08, 2024 10:30 AM AMBULATORY MEDICINE [facility] [place] [facility] Jan 11, 2024 01:00 PM AMBULATORY - MEDICINE [facility] [place] [facility] Jan 30, 2024 01:00 PM AMBULATORY MEDICINE [facility] [place] [facility] Mar 27, 2024 01:00 PM AMBULATORY - MEDICINE [facility] ([facility]) Apr 04, 2024 08:00 AM AMBULATORY MEDICINE [facility] [place] [facility] Active, Pending, and Scheduled Orders This section includes a listing of several types of active, pending, and scheduled orders, including clinic medications orders, diagnostic test orders, procedure orders and consult orders; where the start date of the order is 45 days before the date of the Encounter or 45 days after the date of theEncounter. The data comes from all [facility] treatment facilities. Test Date/Time Test Type Test Details Facility Name 2023 01:37 PM Consult Order COMMUNITY CARE-NEUROLOGY Cons Dry Wall Plasterer's Choice [place] [facility] Radiology Reports: +/- 30 days of [...] the Encounter. The data comes from all [place] treatment facilities. Date/Time Radiology Report Provider Source Oct 11, 2023 12:[address] LUMBAR SPINE W/O CONT: MUKUL KAY [id number] -1940 M Exm Date: OCT 11, 2023@12:58 Req Phys: LENORA DEJESUS Pat Loc: CWM/GO/PACT 1 WH (Req'g Loc) Img Loc: [place]/CT Service: Unknown (Case [id number] COMPLETE) CT LUMBAR SPINE W/O CONT (CT Detailed) CPT:00907 Reason for Study: back pain Clinical History: radiating left leg Report Status: Verified Date Reported: OCT 12, 2023 Date Verified: OCT 12, 2023 Roof Assembler E-Sig: Report: CT LUMBAR SPINE W/O CONT HISTORY: back pain COMPARISON: None TECHNIQUE: CT of the lumbar spine performed without contrast. Images were received by the [place] National Teleradiology Program (NTP) for interpretation. RADIATION [...] chronic. Correlate clinically. READING PHYSICIAN: Mir Nuñez -[phone] 10/12/2023 10:03 [facility] [employer] Program [phone] (For Medical Practitioner Use Only) Attention Patients / Veterans: If you have questions or concerns about these test results, please contact your ordering provider or primary care team. Primary Diagnostic Code: SIGNIFICANT ABNORMALITY, ATTN NEEDED Primary Interpreting Staff: RADIOLOGY,OUTSIDE SERVICE, Staff Physician / RADIOLOGY,OUTSIDE SERVICE [facility] Encounter Notes: All associated encounter notes This section contains the clinical notes associated to the Encounter. Date/Time Encounter Note(s) Provider Source Nov 06, 2023 12:00 AM NONVA NOTE: LOCAL TITLE: NON-VA OUTPATIENT NOTES STANDARD TITLE: NONVA NOTE DATE OF NOTE: NOV 06, 2023 ENTRY DATE: NOV 14, 2023@07:00:37 AUTHOR: MIK LOPEZ EXP COSIGNER: URGENCY: STATUS: COMPLETED VistA Imaging - Scanned Document SCANNED DOCUMENT SIGNATURE NOT REQUIRED Electronically Filed: 11/14/2023 by: MIK PISANO [facility] Nov 06, 2023 12:00 AM NONVA NOTE: LOCAL TITLE: NON-VA HOSPITALIZATIONS/ER STANDARD TITLE: NONVA NOTE DATE OF NOTE: NOV 06, 2023 ENTRY DATE: NOV 24, 2023@09:17 AUTHOR: CORTNEY RODRIGUEZ EXP COSIGNER: URGENCY: STATUS: COMPLETED VistA Imaging - Scanned Document SCANNED DOCUMENT SIGNATURE NOT REQUIRED Electronically Filed: 11/24/2023 by: CORTNEY RODRIGUEZ COST SPECIALIST CORTNEY RODRIGUEZ [facility]
--- OUTSIDE RECORDS SUMMARY | 2024-08-07 12:18 | XMS_ITS | Encounter Summary ---
Author Name [facility] Organization [facility] Address [address] [place] [address] Care Team Providers Care Reel Man Name Role Phone LENORA DEJESUS Primary Care [...] Jul 31, 2014 MEDICAR E SUPPLEM E [id number] FR GAMALIEL KAY PATIENT [facility] MEDICARE SUPPLEMEN [facility] ARE SUPP Jul 31, 2014 SUPP [id number] [phone] FR GAMALIEL KAY PATIENT MEDICARE (WNR) MEDICARE (M) PART A Jan 29, 2004 PART A [id number] [phone] FR GAMALIEL KAY PATIENT MEDICARE (WNR) MEDICARE (M) PART B Jan 29, 2004 PART B [id number] [phone] FR GAMALIEL KAY PATIENT [place] (WNR) MEDICARE ADVANTAGE [facility] Jul 31, 2023 [id number] [phone] FR GAMALIEL KAY PATIENT [place] (WNR) MEDICARE ADVANTAGE [facility] (WNR) Jul 31, 2023 [id number] [phone] FR GAMALIEL KAY PATIENT Selected Encounter This section includes the information on record at [place] for the Encounter. Date/Time Encounter Type Encounter Description Reason Provider Source Oct 06, 2023 03:00 PM PRO PHONE CALL 11-20 MIN TELEPHONE MH ICD-10-CM F43.21 Adjustment disorder with depressed mood FLO BEAR Mitzi Encounter Template Text not used by [place] Assessments - Encounter Diagnoses This section includes the primary and secondary diagnoses documented for the Encounter. Date/Time Primary/Secondary Diagnosis Diagnosis Name Provider Source Oct 06, 2023 03:00 PM PRIMARY Adjustment disorder with depressed mood JOIE BEAR Plan of Treatment: Future Appointments (+ 6 months) and Future Tests (+/- 45 days) The Plan of Treatment section includes future care activities for the patient from all [place] treatmentfacilities. This section includes future appointments and future orders which are active, pending or scheduled. Future Appointments This section includes appointments that were scheduled to occur 6 months from the date of the Encounter, up to a maximum of 20 appointments. The data comes from all [place] treatment facilities. Appointment Date/Time Appointment Type Appointme nt Facility Name Oct 10, 2023 02:00 PM AMBULATORY - MEDICINE [facility] Oct 11, 2023 01:00 PM AMBULATORY - NONE [facility] Oct 16, 2023 02:00 PM AMBULATORY - MEDICINE [facility] [place] Oct 24, 2023 11:30 AM AMBULATORY - MEDICINE [facility] Oct 26, 2023 01:30 PM AMBULATORY - NEUROLOGY [facility] Nov 13, 2023 01:00 PM AMBULATORY - MEDICINE [facility] December 11, 2023 10:30 AM AMBULATORY - MEDICINE [facility] [place] December 20, 2023 09:00 AM AMBULATORY - MEDICINE [facility] [place] December 20, 2023 02:00 PM AMBULATORY - MEDICINE [facility] ([facility] Jan 08, 2024 10:30 AM AM[facility]ULATORY - MEDICINE [facility] Jan 11, 2024 01:00 PM [facility] Jan 30, 2024 01:00 PM [facility] Mar 27, 2024 01:00 PM [facility] Apr 04, 2024 08:00 AM AMBULATORY - MEDICINE [facility] Active, Pending, and Scheduled Orders This section includes a listing of several types of active, pending, and scheduled orders, including clinic medications orders, diagnostic test orders, procedure orders and consult orders; where the start date of the order is 45 days before the date of the Encounter or 45 days after the date of theEncounter. The data comes from all [place] treatment facilities. Test Date/Time Test Type Test Details Facility Name 2023 01:37 PM Consult Order [facility]UROLOGY Cons Manager Data's Choice [facility] Lab Results: +/- 30 days of the encounter This section includes the Chemistry and Hematology Lab Results on record with [place] for the patient. Radiology Reports and Pathology Reports are provided separately, in subsequent sections. Lab Results This section contains the Chemistry/Hematology Results that were resulted 30 days before or 30 daysafter the date of the Encounter. Date/Time Source Result Type Result - Unit Interpretation Reference Range Comment Sep 13, 2023 01:18 PM [facility] ([facility]) MICROALBUMIN CREATININE RATIO PANEL Specimen Type: URINE No comment entered. Ordering Provider: FLYNN DEJESUS Report Released Date/Time: Sep 08, 2023 04:05 PM Reporting Lab: [facility] [address] [facility] [address] Performing Lab: [address] [address] MICROALBUMIN/C REATININE RATIO 16.2 mg/g 0-29.9 MICROALBUMIN,Q UANTITATIVE 2.8 mg/dL RR UNAVAIL CREATININE URINE 172.87 mg/dL Sep 13, 2023 01:18 PM [facility] ([facility]) VITAMIN D (25-OH) Specimen Type: SERUM No comment entered. Ordering Provider: FLYNN DEJESUS Report Released Date/Time: Sep 08, 2023 04:05 PM Reporting Lab: [address] [address] Performing Lab: [address] [address] VITAMIN D (25-OH) 39 ng/mL 20-50 Sep 13, 2023 01:18 PM [facility] ([facility]) URINALYSIS Specimen Type: URINE Comment: If Glucose = >500 and Ketones are positive, please alert the Physician. Ordering Provider: FLYNN DEJESUS Report Released Date/Time: Sep 08, 2023 04:05 PM Reporting Lab: [address] [address] Performing Lab: [address] [address] UA COLOR Yellow Yellow UA APPEARANCE Clear [...] Sep 08, 2023 04:05 PM Reporting Lab: [address] [address] Performing Lab: [address] [address] VITAMIN B12 359 pg/mL 200-900 Sep 13, 2023 01:18 PM [facility] ([facility]) TSH Specimen Type: SERUM No comment entered. Ordering Provider: FLYNN DEJESUS Report Released Date/Time: Sep 08, 2023 04:05 PM Reporting Lab: [address] [address] Performing Lab: [address] [address] TSH 1.81 u[IU]/mL 0.35-5.00 Sep 13, 2023 01:18 PM [facility] ([facility]) HEMOGLOBIN A1C PANEL Specimen Type: BLOOD [...] Sep 08, 2023 04:05 PM Reporting Lab: [address] [address] Performing Lab: [address] [address] HEMOGLOBIN A1C 6.6 H 4.0-5.6 Sep 13, 2023 01:18 PM [facility] ([facility]) LIVER FUNCTION Specimen Type: SERUM No comment entered. Ordering Provider: FLYNN DEJESUS Report Released Date/Time: Sep 08, 2023 04:05 PM Reporting Lab: [address] [address] Performing Lab: [address] [address] PROTEIN,TOTAL 7.1 g/dL 6.0-8.3 ALBUMIN 3.8 g/dL 3.5-5.0 ALKALINE PHOSPHATASE 82 U/L 40-150 AST 16 U/L 5-34 ALT 6 U/L BILIRUBIN, TOTAL 0.8 mg/dL 0.2-1.2 Sep 13, 2023 01:18 PM [facility] ([facility]) CBC AND DIFF (AUTO) Specimen Type: BLOOD No comment entered. Ordering Provider: FLYNN DEJESUS Report Released Date/Time: Sep 08, 2023 04:05 PM Reporting Lab: [address] [address] Performing Lab: [address] [address] WBC 8.48 10*3/uL 4.50-11.00 RBC 5.71 10*6/uL H 4.23-5.66 HGB 16.6 g/dL 12.8-17 HCT 49.8 39.2-50.4 MCV 87.2 fL 82-99 MCHC 33.3 g/dL 30.8-35.1 PLT 242 10*3/uL 140-360 RDW-CV 13.7 12.0-16.0 Gosper, Abs 0.73 10*3/uL 0.30-1.10 MCH 29.1 pg 26.2-32.6 Neut % 71.1 43.7-75.8 Lymph % 18.8 14.0-42.3 Gosper % 8.6 5.1-13.7 Eos % 0.6 0.4-6.8 Baso % 0.7 0.1-2.0 Neut, Abs 6.03 10*3/uL 2.20-7.60 Lymph, Abs 1.59 10*3/uL 1.00-3.20 Eos, Abs 0.05 10*3/uL 0.03-0.44 Baso, Abs 0.06 10*3/uL 0.01-0.13 Immature Gran % 0.2 0.0-0.7 Immature Gran, Abs 0.02 10*3/uL 0.00-0.06 Sep 13, 2023 01:18 PM [facility] ([facility]) LIPID PANEL, NON FASTING Specimen Type: SERUM No comment entered. Ordering Provider: FLYNN DEJESUS Report Released Date/Time: Sep 08, 2023 04:05 PM Reporting Lab: [address] [address] Performing Lab: [address] [address] CHOLESTEROL 181 mg/dL TRIGLYCERIDE 142 mg/dL 0-150 LDL calculated 113 mg/dL 0-129 CHOL/HDL 4.5 HDL CHOLESTEROL 40 mg/dL 40-60 Sep 13, 2023 01:18 PM [facility] ([facility]) BASIC METABOLIC PANEL (non-fasting) Specimen Type: SERUM No comment entered. Ordering Provider: FLYNN DEJESUS Report Released Date/Time: Sep 08, 2023 04:05 PM Reporting Lab: [address] [address] Performing Lab: [address] [address] UREA NITROGEN 23 mg/dL 7-25 GLUCOSE 120 [...] the Encounter. The data comes from all [place] treatment facilities. Date/Time Radiology Report Provider Source Oct 11, 2023 12:[address] LUMBAR SPINE W/O CONT: MUKUL KAY [id number] [id number] M Exm Date: OCT 11, 2023@12:58 Req Phys: LENORA DEJESUS Pat Loc: [facility]/GO/PACT 1 WH (Req'g Loc) Img Loc: [facility]/CT Service: Unknown (Case [id number] COMPLETE) CT LUMBAR SPINE W/O CONT (CT Detailed) CPT:72034 Reason for Study: back pain Clinical History: radiating left leg Report Status: Verified Date Reported: OCT 12, 2023 Date Verified: OCT 12, 2023 Quality Engineering Manager E-Sig: Report: CT LUMBAR SPINE W/O CONT HISTORY: back pain COMPARISON: None TECHNIQUE: CT of the lumbar spine performed without contrast. Images were received by the [place] [facility] ([facility]) for interpretation. RADIATION [...] chronic. Correlate clinically. READING PHYSICIAN: Mir Nuñez -[phone] 10/12/2023 10:03 [facility] National Teleradiology Program [phone] (For Medical Practitioner Use Only) Attention Patients / Veterans: If you have questions or concerns about these test results, please contact your ordering provider or primary care team. Primary Diagnostic Code: SIGNIFICANT ABNORMALITY, ATTN NEEDED Primary Interpreting Staff: RADIOLOGY,OUTSIDE SERVICE, Staff Physician / RADIOLOGY,OUTSIDE SERVICE [facility] Encounter Notes: All associated encounter notes This section contains the clinical notes associated to the Encounter. Date/Time Encounter Note(s) Provider Source Oct 06, 2023 04:30 PM MENTAL HEALTH TELE PHONE ENCOUNTER NOTE: LOCAL TITLE: TELEPHONE NOTE/MENTAL HEALTH STANDARD TITLE: MENTAL HEALTH TELEPHONE ENCOUNTER NOTE DATE OF NOTE: OCT 06, 2023@16:30 ENTRY DATE: OCT 09, 2023@08:56:36 AUTHOR: SHRUTHI BEAR COSIGNER: URGENCY: STATUS: COMPLETED The undersigned called this upon referral for mental health services at the [facility]. He reported that the two nurse alerted his PC that he was presenting as depressed, to which he acknowledge I am. He denied ever having thoughts of self-harm or SI of any kind, but rather having difficulty adjusting to age related medical concerns ( hand tremors, pace maker, afib, charcoal foot, soreness in knee and shoulder) and lifestyle changes, notably no longer driving. Otherwise he denied and a history of mental health service. We discussed the process of establishing MH services, and the need for a more comprehensive intake. He expressed understanding, and was otherwise thankful for the outreach on this day. Next step to schedule intake with TRUNG Andrews RN. 11minute tele Dx: Adjustment Disorder with Depressed Mood /es/ Shruthi Bear Psy.D. FLOOR HELPER, CLINICAL PSYCHOLOGIST Signed: 10/09/2023 08:57 SHRUTHI BEARFIELD
--- OUTSIDE RECORDS SUMMARY | 2024-08-07 12:18 | XMS_ITS | Encounter Summary ---
Author Name [facility] [place] Address [address] [place] [id number] Care Team Providers Care Photographer Assistant Name Role Phone LENORA DEJESUS Primary Care [...] Jul 31, 2014 MEDICAR E SUPPLEM E [id number] [phone] FR GAMALIEL KAY PATIENT [facility] MEDICARE SUPPLEMEN EVANGELIST[place] MEDIC ARE SUPP Jul 31, 2014 SUPP [id number] [phone] FR GAMALIEL KAY PATIENT MEDICARE (WNR) MEDICARE (M) PART A Jan 29, 2004 PART A [id number] [phone] FR GAMALIEL KAY PATIENT MEDICARE (WNR) MEDICARE (M) PART B Jan 29, 2004 PART B [id number] [phone] FR GAMALIEL KAY PATIENT [facility] (WNR) MEDICARE ADVANTAGE [facility] ([facility]) Jul 31, 2023 [id number] [phone] FR GAMALIEL KAY PATIENT [facility]CR (WNR) MEDICARE ADVANTAGE [facility] (WNR) Jul 31, 2023 [id number] [phone] FR GAMLAIEL KAY PATIENT Selected Encounter This section includes the information on record at [place] for the Encounter. Date/Time Encounter Type Encounter Description Reason Provider Source Oct 16, 2023 02:00 PM OFFICE O/P EST MOD 30 MIN DERMATOLOGY ICD-10-CM Z85.820 Personal history of malignant melanoma of skin STACIE MATA Mitzi Encounter Template Text not used by [place] Assessments - Encounter Diagnoses This section includes the primary and secondary diagnoses documented for the Encounter. Date/Time Primary/Secondary Diagnosis Diagnosis Name Provider Source Oct 16, 2023 02:33 PM PRIMARY Personal history of malignant melanoma of skin NAMRATA MATA ([facility]) Oct 16, 2023 02:33 PM SECONDARY Dermatitis, unspecified NAMRATA MATA ([facility]) Oct 16, 2023 02:33 PM SECONDARY Hemangioma of skin and subcutaneous tissue NAMRATA MATA ([facility]) Oct 16, 2023 02:33 PM SECONDARY Nevus, non-neoplastic NAMRATA MATA ([facility]) Oct 16, 2023 02:33 PM SECONDARY Other melanin hyperpigmentation NAMRATA MATA ([facility]) Oct 16, 2023 02:33 PM SECONDARY Other seborrheic keratosis NAMRATA MATA ([facility]) Oct 16, 2023 02:33 PM SECONDARY Personal history of other malignant neoplasm of skin NAMRATA MATA ([facility]) Oct 16, 2023 02:33 PM SECONDARY Xerosis cutis NAMRATA MATA ([facility]) Plan of Treatment: Future Appointments (+ 6 months) and Future Tests (+/- 45 days) The Plan of Treatment section includes future care activities for the patient from all [place] treatmentfacilities. This section includes future appointments and future orders which are active, pending or scheduled. Future Appointments This section includes appointments that were scheduled to occur 6 months from the date of the Encounter, up to a maximum of 20 appointments. The data comes from all [place] treatment facilities. Appointment Date/Time Appointment Type Appointme nt Facility Name Oct 24, 2023 11:30 AM AM[place]ATORY [place] [facility] [facility] Oct 26, 2023 01:30 PM AM[place]UL[place]ORY [place] [facility] [place] [facility] Nov 13, 2023 01:00 PM [place]UL[place]ORY [place] [facility] [facility] December 11, 2023 10:30 AM [place]ORY [place] [facility] [facility] December 20, 2023 09:00 AM AM[place]UL[place]ORY [place] [facility] [facility] December 20, 2023 02:00 PM AMBULATORY - MEDICINE [facility] ([facility] Jan 08, 2024 10:30 AM AM[place]UL[place]ORY [place]INE [place] [facility] [facility] Jan 11, 2024 01:00 PM AM[place]ORY [place] [facility] [facility] Jan 30, 2024 01:00 PM AM[place]ULATORY [place]INE [place] [facility] [facility] Mar 27, 2024 01:00 PM AMBULATORY - MEDICINE [facility] ([facility]) Apr 04, 2024 08:00 AM AMBULATORY [place]ICINE [place] [facility] [place] [facility] Active, Pending, and Scheduled Orders This section includes a listing of several types of active, pending, and scheduled orders, including clinic medications orders, diagnostic test orders, procedure orders and consult orders; where the start date of the order is 45 days before the date of the Encounter or 45 days after the date of theEncounter. The data comes from all [place] treatment facilities. Test Date/Time Test Type Test Details Facility Name 2023 01:37 PM Consult Order COMMUNITY CARE-NEUROLOGY Cons Medicare Compliance Auditor's Choice [place] [facility] [facility] Social History: Smoking Status (Most current) and Tobacco Use (All prior to encounter date) This section includes the most current, and the historical, smoking and tobacco- related health factors from the [place] facility where the Encounter took place. Current Smoking Status This section includes the most current smoking, or tobacco-related health factor, from the [place] facility where the Encounter took place. Date/Time Current Smoking Status Rolly william Sep 22, 2023 01:00 PM [place]-TOBACCO NEVER USED CIRCLE (CB) Tobacco Use History This section includes a history of the smoking, or tobacco-related health factors, that were collected on or before the date of the Encounter. The data comes from the [place] facility where the Encounter took place. Date/Time [...] the Encounter. The data comes from all [place] treatment facilities. Date/Time Radiology Report Provider Source Oct 11, 2023 12:[address] LUMBAR SPINE W/O CONT: MUKUL KAY MIKE [id number] -1940 M Exm Date: OCT 11, 2023@12:58 Req Phys: LENORA DEJESUS Pat Loc: CWM/GO/PACT 1 WH (Req'g Loc) Img Loc: [facility]/CT Service: Unknown (Case [id number] COMPLETE) CT LUMBAR SPINE W/O CONT (CT Detailed) CPT:63492 Reason for Study: back pain Clinical History: radiating left leg Report Status: Verified Date Reported: OCT 12, 2023 Date Verified: OCT 12, 2023 Glaciologist E-Sig: Report: CT LUMBAR SPINE W/O CONT HISTORY: back pain COMPARISON: None TECHNIQUE: CT of the lumbar spine performed without contrast. Images were received by the [place] National Teleradiology Program (NTP) for interpretation. RADIATION [...] chronic. Correlate clinically. READING PHYSICIAN: Mir Nuñez -[id number] 10/12/2023 10:03 PDT [facility] National Teleradiology Program [phone] (For Medical Practitioner Use Only) Attention Patients / Veterans: If you have questions or concerns about these test results, please contact your ordering provider or primary care team. Primary Diagnostic Code: SIGNIFICANT ABNORMALITY, ATTN NEEDED Primary Interpreting Staff: RADIOLOGY,OUTSIDE SERVICE, Staff Physician / RADIOLOGY,OUTSIDE SERVICE [facility] Encounter Notes: All associated encounter notes This section contains the clinical notes associated to the Encounter. Date/Time Encounter Note(s) Provider Source Oct 16, 2023 02:09 PM DERMATOLOGY OUTPAT IENT NOTE: LOCAL TITLE: DERMATOLOGY CLINIC NOTE STANDARD TITLE: DERMATOLOGY OUTPATIENT NOTE DATE OF NOTE: OCT 16, 2023@14:09 ENTRY DATE: OCT 16, 2023@14:09:13 AUTHOR: LELAND MATA EXP COSIGNER: URGENCY: STATUS: COMPLETED OCT 16, 2023 MUKUL KAY Sep 80 PATIENT PHONE - Patient here for FOLLOW UP CHIEF COMPLAINT: h/o MM (per report), NMSC HPI: Reviewed records from last Dermatology visit: 04/10/23 He reports that lower leg wound has healed, was followed by the wound clinic and the [facility] nurse. Murdock denies any new/changing/bleeding/non-h ealing lesions. REVIEW OF SYSTEMS: Constitutional-neg Skin/Hair/Nails-see HPI DermHx: -h/o MM, R posterior ear and R lower leg s/p excision (per ) -nBCC, L medial frontal scalp s/p Mohs 08/21 at [facility] -Atypical nevus, moderate, L lateral midback, s/p excision 04/21 Family Hx: Denies known h/o MM PastMedHx: Reviewed. PMHx: T2DM, AFIB, PARKINSON'S, LYMPHEDEMA R LEG History of Sun Exposure/Sunburns: +yes Active Outpatient Medications (including Supplies): Active Outpatient Medications [...] MOUTH ACTIVE TWICE DAILY FOR BLOOD PRESSURE/HEART PHYSICAL EXAM: Bo Skintype II General-AxOx3, NAD, pleasant, breathing unlabored, speech clear, ambulates with walker Limited cutaneous examination, as permitted by the patient (waist-up and lower legs), including scalp, face, eyes, ears, neck, chest, back, abdomen, arms, hands, fingers, legs. Pertinent findings per below: -vertex scalp with well healed surgical scar, no suspicious lesion/pigment to area -R postauricular area and posterior ear each with well healed surgical scars, no suspicious lesion/pigment to area -R lateral knee with well healed surgical scar, no suspicious lesion/pigment to area -L lateral mid back with well healed surgical scar, no suspicious lesion/pigment to area -Multiple scattered stuck-on appearing waxy parr and brown papules and plaques with noted milia-like cysts, comedo-like openings and fissures/ridges on dermoscopy. -Scattered uniformly pigmented light parr and brown jagged macules in sun distributed areas. -Scattered cantu-red dome shaped papules on chest/back -Multiple scattered symmetrical evenly pigmented brown macules and papules, most under 6mm. -Submental, submandibular, supraclavicular, cervical, parotid, retroauricular, occipital, axillary, and inguinal nodes palpated -no lymphadenopathy appreciated -bilateral anterior lower legs with hyperpigmentation, 1+ pitting edema -generalized xerosis Diagnosis/Plan: #History of Melanoma: (per report) -No evidence of recurrence at surgical site(s) -ABCDEs of melanoma were discussed -Patient was instructed on self skin exams, the importance of sun screen usage and sun protective clothing -If any changes are detected, the patient was instructed to contact dermatology for evaluation -FBSE advised in 6-12 months, sooner PRN #Personal History of Non-Melanotic Skin Cancer: -No evidence of recurrence at surgical site(s) -Full Body Skin Exam advised at least yearly -Photoprotection discussed -Patient instructed to follow up in clinic for any concerning lesions or changes #Seborrheic Keratoses: -The was educated regarding the benign nature, but to return with any growth, change or symptoms in area. #Benign Appearing Nevi: -ABCDEs of melanotic lesions discussed, self examinations encouraged -No concerning lesions today on examination -A full body skin check is recommended yearly -Photoprotection discussed. #Solar Lentigines -The was educated regarding the benign nature and relation to chronic sun exposure, but to return with any growth, change or symptoms in area. -Photoprotection discussed. #Cantu Angiomas: -The was educated regarding the benign nature, but to return with any growth, change or symptoms in area. #Xerosis -Advised liberal emollients. Lotion applicator mailed. 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 -Discussed etiology of SD. Advised to maintain mobility and ambulation for good circulation, raise legs when possible, and use support socks. RTC 1 yr, sooner PRN * educated to RTC chad if any new, changing, symptomatic lesions. * Education on sun protection and avoidance strategies was provided. * Differential diagnosis, prescription options and risks/benefits were discussed with the patient, who consented to treatment plan. * consented to photography for documentation if indicated. * A dermatoscope was used during the exam. * NUB = Neoplasm of Uncertain Behavior of Skin ------TIME ESTIMATION To include but not limied to: -Review of medical records -Time spent with patient including obtaining history, physical exam, shared decision making, procedures and counseling -Post visit documentation; HPI and physical exam findings, clinical researching, medical decision making, medication and lab ordering Total estimated time = 30 min ------ Medication Reconciliation: Outpatient: Has the patient been taking medications as documented in the EMLR? YES: The patient has been taking medications as documented in the EMLR. Essential Medication List for Review used to complete this medication reconciliation. INCLUDED IN THIS LIST: Alphabetical list of active outpatient prescriptions dispensed from this [facility] (local) and dispensed from another [place] or [place] facility (remote) as well as inpatient orders [...] whether with a VA or non-VA provider. JLV Link Data on this list may not be complete. Please check JLV. Allergies/ADRs (Tool #5) FACILITY ALLERGY/ADR -------- No Remote Allergy/ADR Data available for this patient [facility] Med Recon [facility] (Tool #1) INCLUDED IN THIS LIST: Alphabetical list of active outpatient prescriptions dispensed from this [place] (local) and dispensed from another [facility] or [facility]D facility (remote) as well as inpatient orders (local pending and active), local clinic medications, locally documented non-VA medications, and local prescriptions that have or been discontinued in the past 90 days. Non-VA Meds Last Documented On: Jul 28, 2021 NOTE The display of VA prescriptions dispensed from another VA or DoD facility (remote) is limited to active outpatient prescription entries matched to National Drug File at the originating site and may not include some items such as investigational drugs, compounds, etc. NOT INCLUDED IN THIS LIST: Medications self-entered by the patient into personal health records (i.e. [employer]) are NOT included in this list. Non-VA medications documented outside this [place], remote inpatient orders (regardless of status) and remote clinic medications are NOT included in this list. The patient and provider must always discuss medications the patient is taking, regardless of where the medication was dispensed or obtained. OUTPT APIXABAN 5MG TAB (Status = Discontinued) TAKE ONE TABLET BY MOUTH TWICE DAILY Rx# [id number] Last Released: 05/13/23 Qty/Days Supply: 18090 Rx Expiration Date: 08/11/23 Refills Remainin OUTPT APIXABAN 5MG TAB (Status = Active) TAKE ONE TABLET BY MOUTH TWICE DAILY Rx# [id number] Last Released: 08/26/23 Qty/Days Supply: 180/ Rx Expiration Date: 08/18/24 Refills Remainin OUTPT CARBIDOPA 25/LEVODOPA 100MG TAB (Status = Active) TAKE 1 TABLET BY MOUTH THREE TIMES A DAY FOR 7 DAYS, THEN TAKE 2 TABLETS THREE TIMES A DAY FOR PARKINSON'S DISEASE Rx# [id number] Last Released: 07/12/23 Qty/Days Supply: Rx Expiration Date: 07/10/24 Refills Remainin Indication: FOR PARKINSON'S DISEASE OUTPT FLUTICASONE PROP 50MCG 120D NASAL INHL (Status = Active) INSTILL 2 SPRAYS INTO EACH NOSTRIL ONCE DAILY Rx# [id number] Last Released: 10/13/23 Qty/Days Supply: Rx Expiration Date: 10/10/24 Refills Remainin Indication: FOR NASAL IRRITATION/INFLAMMATION OUTPT FUROSEMIDE 20MG TAB (Status = Discontinued) TAKE ONE TABLET BY MOUTH ONCE DAILY TO REMOVE FLUID/CONTROL BLOOD PRESSURE Rx# [id number] Last Released: 06/28/23 Qty/Days Supply: 90 Rx Expiration Date: 08/11/23 Refills Remainin OUTPT FUROSEMIDE 20MG TAB (Status = Active) TAKE ONE TABLET BY MOUTH ONCE DAILY TO REMOVE FLUID/CONTROL BLOOD PRESSURE Rx# [id number] Last Released: 09/23/23 Qty/Days Supply: 90 Rx Expiration Date: 09/19/24 Refills Remainin OUTPT GLIMEPIRIDE 1MG TAB (Status = Discontinued) TAKE ONE AND ONE-HALF TABLETS BY MOUTH ONCE DAILY FOR TYPE 2 DIABETES MELLITUS Rx# [id number] Last Released: 07/19/23 Qty/Days Supply: 135/90 Rx Expiration Date: 03/17/24 Refills Remainin Indication: FOR TYPE 2 DIABETES MELLITUS OUTPT GLIMEPIRIDE 2MG TAB (Status = Discontinued) TAKE ONE TABLET BY MOUTH ONCE DAILY FOR TYPE 2 DIABETES MELLITUS Rx# [id number] Last Released: 09/25/23 Qty/Days Supply: 90 Rx Expiration Date: 09/22/24 Refills Remainin Indication: FOR TYPE 2 DIABETES MELLITUS OUTPT KETOCONAZOLE 2% SHAMPOO (Status = Active) SHAMPOO SMALL AMOUNT TOPICALLY TWICE A WEEK NEEDED APPLY FOR 8 WEEKS, THEN NEEDED Rx# [id number] Last Released: 11/15/22 Qty/Days Supply: 120/30 Rx Expiration Date: 11/08/23 Refills Remainin Indication: SCALP RASH OUTPT LIDOCAINE 5% PATCH (Status = Active) APPLY 1 PATCH TOPICALLY ONCE DAILY NEEDED FOR NERVE PAIN (LEAVE PATCH ON FOR 12 HOURS, THEN REMOVE PATCH) Rx# [id number] Last Released: 10/12/23 Qty/Days Supply: 90 Rx Expiration Date: 10/10/24 Refills Remainin Indication: FOR NERVE PAIN OUTPT METFORMIN HCL 500MG 24HR SA TAB (Status = Active) TAKE ONE TABLET BY MOUTH ONCE DAILY FOR 1 WEEK, THEN TAKE TWO TABLETS ONCE DAILY FOR TYPE 2 DIABETES MELLITUS Rx# [id number] Last Released: 10/06/23 Qty/Days Supply: 113/60 Rx Expiration Date: 12/02/23 Refills Remainin Indication: FOR TYPE 2 DIABETES MELLITUS OUTPT METOPROLOL TARTRATE 50MG TAB (Status = Active) TAKE ONE TABLET BY MOUTH TWICE DAILY FOR BLOOD PRESSURE/HEART Rx# [id number] Last Released: 07/08/23 Qty/Days Supply: 180/90 Rx Expiration Date: 02/10/24 Refills Remainin Indication: FOR HEART RATE CONTROL SUPPLIES /kasia/ LELAND MATA DNP, [employer] PROFESSIONAL-C NURSE PRACTITIONER Signed: 10/16/2023 14:33 LELAND MATA ([facility])
--- OUTSIDE RECORDS SUMMARY | 2024-08-07 12:18 | XMS_ITS | Encounter Summary ---
Author Name [place] Address [address] [place] [address] Care Team Providers Care Refueling Rampman Name Role Phone LENORA ROJO Primary Care [...] Jul 31, 2014 MEDICAR E SUPPLEM E [id number] [phone] FR GAMALIEL KAY PATIENT [facility] MEDICARE SUPPLEMEN [place]ANGELIST[place] MEDIC ARE SUPP Jul 31, 2014 SUPP [id number] [phone] FR GAMALIEL KAY PATIENT MEDICARE (WNR) MEDICARE ([place]) PART A Jan 29, 2004 PART A [id number] [phone] FR GAMALIEL KAY PATIENT MEDICARE (WNR) MEDICARE ([place]) PART B Jan 29, 2004 PART B [id number] [phone] FR GAMALIEL KAY PATIENT [facility] (WNR) MEDICARE ADVANTAGE [facility] ([facility]) Jul 31, 2023 [id number] [phone] FR GAMALIEL KAY PATIENT [facility] (WNR) MEDICARE ADVANTAGE [facility] (WNR) Jul 31, 2023 [id number] [phone] FR GAMALIEL KAY PATIENT Selected Encounter This section includes the information on record at [place] for the Encounter. Date/Time Encounter Type Encounter Description Reason Pro vider Source Nov 07, 2023 09:36 AM Outpatient Encounter PRIMARY CARE/MEDICINE IHE Encounter Template Text not used by [place] Plan of Treatment: Future Appointments (+ 6 months) and Future Tests (+/- 45 days) The Plan of Treatment section includes future care activities for the patient from all [place] treatmentfapeoples hospital. This section includes future appointments and [...] 13, 2023 01:00 PM AMBULATORY - MEDICINE [facility] [place] [facility] December 11, 2023 10:30 AM AMBULATORY MEDICINE [facility] [place] [facility] December 20, 2023 09:00 AM AMBULATORY MEDICINE [facility] [place] [place] [facility] December 20, 2023 02:00 PM AMBULATORY - MEDICINE [facility] Jan 08, 2024 10:30 AM AMBULATORY MEDICINE [facility] [place] [facility] Jan 11, 2024 01:00 PM AMBULATORY - MEDICINE [facility] [place] [facility] Jan 30, 2024 01:00 PM AMBULATORY MEDICINE [facility] [place] [place] [facility] Mar 27, 2024 01:00 PM AMBULATORY - MEDICINE [facility] ([facility] Apr 04, 2024 08:00 AM AMBULATORY MEDICINE [facility] [place] [facility] Active, Pending, and Scheduled Orders This [...] 01:37 PM Consult Order COMMUNITY CARE-NEUROLOGY Cons Coutierier's Choice [place] [facility] [facility] Radiology Reports: +/- 30 days of [...] the Encounter. The data comes from all [place] treatment facilities. Date/Time Radiology Report Provider Source Oct 11, 2023 12:[address] LUMBAR SPINE W/O CONT: ERICH KAY [id number] -1940 M Exm Date: OCT 11, 2023@12:58 Req Phys: LENORA ROJO Pat Loc: CWM/GO/PACT 1 WH (Req'g Loc) Img Loc: [place] Service: Unknown (Case 239 COMPLETE) CT LUMBAR SPINE W/O CONT (CT Detailed) CPT:98728 Reason for Study: back pain Clinical History: radiating left leg Report Status: Verified Date Reported: OCT 12, 2023 Date Verified: OCT 12, 2023 Health Promotion Manager E-Sig: Report: CT LUMBAR SPINE W/O CONT HISTORY: back pain COMPARISON: None TECHNIQUE: CT of the lumbar spine performed without contrast. Images were received by the [place] National Teleradiology Program (NTP) for interpretation. RADIATION [...] chronic. Correlate clinically. READING PHYSICIAN: Mir Nuñez -[id number] 10/12/2023 10:03 [facility] [employer] Teleradiology Program [phone] (For Medical Practitioner Use Only) Attention Patients / Veterans: If you have questions or concerns about these test results, please contact your ordering provider or primary care team. Primary Diagnostic Code: SIGNIFICANT ABNORMALITY, ATTN NEEDED Primary Interpreting Staff: RADIOLOGY,OUTSIDE SERVICE, Staff Physician / RADIOLOGY,OUTSIDE SERVICE [place] [facility] Encounter Notes: All associated encounter notes This section contains the clinical notes associated to the Encounter. Date/Time Encounter Note(s) Provider Source Nov 07, 2023 09:36 AM NONVA NOTE: LOCAL TITLE: NON-[place] MEDICAL RECORD SUMMARY STANDARD TITLE: NONVA NOTE DATE OF NOTE: NOV 07, 2023@09:36 ENTRY DATE: NOV 07, 2023@09:36:40 AUTHOR: TODD DANIELS COSIGNER: URGENCY: STATUS: COMPLETED COPIED & PASTED FROM [facility] NURSE NOTE [facility] Nurse Date of Encounter: 11/06/2023 Author: Abigail Mares RN Dear Lenora Rojo MD, I have seen a mutual patient, Erich Kay ( 44) at his home for a routine home visit to do a dressing change and well-being check and I wanted to send you a note for his file. Jose was quite unwell upon my arrival. He tells me that he has been in significant pain since last Monday after his visit to his Group Billing Coordinator. Jose states 'she shaved too much off my callous on my charcot foot and since then it has been excruciating pain'. Jose rated his pain a 10/10 and it is not being controlled with Tylenol. Upon examination of the Left foot- the callous had a moderate-extensive amount of serosanguinous drainage, soaking through the gauze dressing which was in place. The callous (quite large amount 6cm X6cm) was completely macerated and the entire area around the callous was red and inflamed and extremely painful to touch. I cleaned the area and applied a DSD. Jose's orientation was intact but was having severe tremors to both arms/hands, which is much worse than baseline. His respiratory status was also altered with increased shortness of breath and expiratory wheezing although his Lung sounds were clear. His HR was increased from baseline at 110-130s. His hands and fingers were cool to touch and I was unable to obtain an oxygen saturation level. VS: 98.9 oral, HR 110-130, RR 24-28, BP 130/85 With all factors included I as concerned about his deterioration and urged Jose to go to the ER for immediate assessment by physician. He agreed, and was being taken this morning by his roommate Darwin. I will contact with any further pertinent updates. Thank you for all your care in this patient. /kasia/ TODD DANIELS RN REGISTERED NURSE Signed: 11/07/2023 09:42 Receipt Acknowledged By: 11/07/2023 15:33 /kasia/ LENORA ROJO MD PHYSICIAN TODD DANIELS ([facility])
--- OUTSIDE RECORDS SUMMARY | 2024-08-07 12:18 | XMS_ITS | Encounter Summary ---
Author Name [facility] [place] [facility] [place] [facility] [place] Address [address] [place] [address] Care Team Providers Care Public Health Sanitarian Name Role Phone LENORA DEJESUS Primary Care [...] Jul 31, 2014 MEDICAR E SUPPLEM E [id number] [phone] FR GAMALIEL KAY PATIENT [facility] MEDICARE SUPPLEMEN [facility] MEDIC ARE SUPP Jul 31, 2014 SUPP [id number] [phone] FR GAMALIEL KAY PATIENT MEDICARE (WNR) MEDICARE (M) PART A Jan 29, 2004 PART A [id number] [phone] FR GAMALIEL KAY PATIENT MEDICARE (WNR) MEDICARE (M) PART B Jan 29, 2004 PART B [id number] [phone] FR GAMALIEL KAY PATIENT [facility] (WNR) MEDICARE ADVANTAGE [facility] ([facility] Jul 31, 2023 [id number] [phone] FR GAMALIEL KAY PATIENT [facility] MCR (WNR) MEDICARE ADVANTAGE [facility] (WNR) Jul 31, 2023 [id number] [phone] FR GAMALIEL KAY PATIENT Selected Encounter This section includes the information on record at [place] for the Encounter. Date/Time Encounter Type Encounter Description Reason Pro vider Source Nov 13, 2023 01:00 PM Outpatient Encounter TELEPHONE PRIMARY CARE [facility] Encounter Template Text not used by [place] Plan of Treatment: Future Appointments (+ 6 months) and Future Tests (+/- 45 days) The Plan of Treatment section includes future care activities for the patient [facility] [place] [facility] This section includes future appointments and future orders which are active, pending or scheduled. Future Appointments This section includes appointments that were scheduled to occur 6 months from the date of the Encounter, up to a maximum of 20 appointments. The data comes from all [place] treatment facilities. Appointment Date/Time Appointment Type Appointme nt Facility Name December 11, 2023 10:30 AM [place]ULATORY [place] [facility] [place] [facility] December 20, 2023 09:00 AM AMBULATORY - MEDICINE [facility] December 20, 2023 02:00 PM AMBULATORY - MEDICINE [facility] Jan 08, 2024 10:30 AM [place]ORY [place] [facility] [place] [facility] Jan 11, 2024 01:00 PM [place] [facility] [place] [facility] Jan 30, 2024 01:00 PM [place] [facility] [place] [facility] Mar 27, 2024 01:00 PM AMBULATORY - MEDICINE [facility] Apr 04, 2024 08:00 AM AMBULATORY MEDICINE [facility] [place] [facility] Active, Pending, and Scheduled Orders This section includes a listing of several types of active, pending, and scheduled orders, including clinic medications orders, diagnostic test orders, procedure orders and consult orders; where the start date of the order is 45 days before the date of the Encounter or 45 days after the date of theEncounter. The data comes from all [place] treatment [facility]. Test Date/Time Test Type Test Details Facility Name 2023 01:37 PM Consult Order COMMUNITY CARE-NEUROLOGY Cons Tufter Operator's Choice [place] [facility] [place] [facility] Social History: Smoking Status (Most current) and Tobacco Use (All prior to encounter date) This section includes the most current, and the historical, smoking and tobacco- related health factors from the [place] facility where the Encounter took place. Current Smoking Status This section includes the most current smoking, or tobacco-related health factor, from the [place] facility where the Encounter took place. Date/Time Current Smoking Status Comment Jo william Sep 22, 2023 01:00 PM VA-TOBACCO NEVER USED [facility] ([facility]) Tobacco Use History This section includes a history of the smoking, or tobacco-related health factors, that were collected on or before the date of the Encounter. The data comes from the [place] facility where the Encounter took place. Date/Time Smoking Status/Tobacco Use Comment F acility December 02, 2022 11:00 AM VA-TOBACCO NEVER USED [facility] ([facility]) Apr 15, 2022 11:30 AM VA-TOBACCO NEVER USED [facility] ([facility]) Apr 07, 2021 11:00 AM VA-TOBACCO NEVER USED [facility] ([facility]) Encounter Notes: All associated encounter notes This section contains the clinical notes associated to the Encounter. Date/Time Encounter Note(s) Provider Source Nov 14, 2023 03:29 PM CLERICAL NOTE: LOCAL TITLE: APPOINTMENT NO SHOW STANDARD TITLE: CLERICAL NOTE DATE OF NOTE: NOV 14, 2023@15:29 ENTRY DATE: NOV 14, 2023@15:29:04 AUTHOR: NARDA CARPENTER COSIGNER: URGENCY: STATUS: COMPLETED APPOINTMENT NO SHOW Has ADDENDA Patient Name: MUKUL KAY Patient SSN: [id number] Date and time of Appointment No show : 11/13/23 13:00 PATIENT PHONE - PHONE NUMBER [CELLULAR] - NONE FOUND Patient's medical record was reviewed. Follow-up actions were determined and initiated: Please check/complete as applies: [X]Telephoned Directly [ ]Re-scheduled for next available appt [X]Sent a N0-show letter ( must call for appointment) [ ]Other (Emergent/Overbook, etc.): Additional Comments: LVM, sent letter Future Clinic Visits 11/20/2023 14:45 CWM/NO/PAIN MD CLINIC 11/21/2023 15:00 CWM/NO/DIABETES EDU1 12/06/2023 13:00 CWM/GO/PACT 1 01/03/2024 13:00 CWM/GO/PACT 1 06/25/2024 14:30 NHM/OPTOMETRY/DONAL[place]ON/ 10/07/2024 13:00 CWM/GO/DERMATOLGY A /kasia/ Narda Carpenter, Don[place] Clinical Vision Therapist Signed: 11/14/2023 15:29 11/22/2023 ADDENDUM STATUS: COMPLETED Patient called and rescheduled appt for 12/10 @ 10:30. He was in the hospital, and currently in rehab, he his hopeful to be discharged early next week. /kasia/ FRANCY CORONA Clinical Repairer Finished Metal Signed: 11/22/2023 15:49 NARDA CARPENTER ([facility])
--- OUTSIDE RECORDS SUMMARY | 2024-08-07 12:18 | XMS_ITS | Encounter Summary ---
Author Name [facility] [place] [facility] [place] Address [address] [place] [id number] Care Team Providers Care Cold Reduction Roller Name Role Phone LENORA DEJESUS Primary Care [...] Jul 31, 2014 MEDICAR E SUPPLEM E [phone] FR GAMALIEL KAY PATIENT [facility] MEDICARE SUPPLEMEN [facility]ANGELISTA MEDIC ARE SUPP Jul 31, 2014 SUPP [id number] [phone] FR GAMALIEL KAY PATIENT MEDICARE (WNR) MEDICARE (M) PART A Jan 29, 2004 PART A [id number] [phone] FR GAMALIEL KAY PATIENT MEDICARE (WNR) MEDICARE (M) PART B Jan 29, 2004 PART B [id number] [phone] FR GAMALIEL KAY PATIENT [facility] (WNR) MEDICARE ADVANTAGE [facility] ([facility]) Jul 31, 2023 [id number] [phone] FR GAMALIEL KAY PATIENT [facility] MCR (WNR) MEDICARE ADVANTAGE [facility] (WNR) Jul 31, 2023 [id number] [phone] FR GAMALIEL KAY PATIENT Selected Encounter This section includes the information on record at [place] for the Encounter. Date/Time Encounter Type Encounter Description Reason Provider Source Oct 10, 2023 02:00 PM OFFICE O/P EST HI 40 MIN PRIMARY CARE/MEDICINE ICD-10-CM I10 Essential (primary) hypertension HUBER DEJESUS Mitzi Encounter Template Text not used by [place] Assessments - Encounter Diagnoses This section includes the primary and secondary diagnoses documented for the Encounter. Date/Time Primary/Secondary Diagnosis Diagnosis Name Provider Source Oct 13, 2023 12:30 PM PRIMARY Essential (primary) hypertension HUBER DEJESUS ([facility]) Oct 13, 2023 12:30 PM SECONDARY Spinal stenosis, site unspecified HUBER DEJESUS ([facility]) Oct 13, 2023 12:30 PM SECONDARY Type 2 diabetes mellitus without complications HUBER DEJESUS ([facility]) Oct 13, 2023 12:30 PM SECONDARY Unspecified atrial fibrillation HUBER DEJESUS ([facility]) Plan of Treatment: Future Appointments (+ 6 months) and Future Tests (+/- 45 days) The Plan of Treatment section includes future care activities for the patient from all [place] treatmentfacilities. This section includes future appointments and future orders which are active, pending or scheduled. Future Appointments This section includes appointments that were scheduled to occur 6 months from the date of the Encounter, up to a maximum of 20 appointments. The data comes from all [place] treatment facilities. Appointment Date/Time Appointment Type Appointme nt Facility Name Oct 11, 2023 01:00 PM AMBULATORY - NONE [place] [facility] [place] [facility] Oct 16, 2023 02:00 PM AMBULATORY - [place]ICINE [place] [facility] [place] [facility] Oct 24, 2023 11:30 AM AMBULATORY - [place]ICINE [place] [facility] [place] [facility] Oct 26, 2023 01:30 PM AMBULATORY - NEUROLOGY [place] [facility] [place] [facility] Nov 13, 2023 01:00 PM AMBULATORY - MEDICINE [place] [facility] [place] [facility] December 11, 2023 10:30 AM AMBULATORY - [place]ICINE [place] [facility] [place] [facility] December 20, 2023 09:00 AM AMBULATORY - [place]ICINE [place] [facility] [place] [facility] December 20, 2023 02:00 PM AMBULATORY - MEDICINE [facility] Jan 08, 2024 10:30 AM AMBULATORY - MEDICINE [place] [facility] [place] [facility] Jan 11, 2024 01:00 PM AMBULATORY - MEDICINE [place] [facility] [place] [facility] Jan 30, 2024 01:00 PM AMBULATORY - MEDICINE [place] [facility] [place] [facility] Mar 27, 2024 01:00 PM AMBULATORY - MEDICINE [facility] Apr 04, 2024 08:00 AM [facility] [place] [facility] Active, Pending, and Scheduled Orders This section includes a listing of several types of active, pending, and scheduled orders, including clinic medications orders, diagnostic test orders, procedure orders and consult orders; where the start date of the order is 45 days before the date of the Encounter or 45 days after the date of theEncounter. The data comes from all [place] treatment facilities. Test Date/Time Test Type Test Details Facility Name 2023 01:37 PM Consult Order [facility]-NEUROLOGY Cons Barrel And Receiver Aligner's Choice [facility] Lab Results: +/- 30 days of the encounter This section includes the Chemistry and Hematology Lab Results on record with [place] for the patient. Radiology Reports and Pathology Reports are provided separately, in subsequent sections. Lab Results This section contains the Chemistry/Hematology Results that were resulted 30 days before or 30 daysafter the date of the Encounter. Date/Time Source Result Type Result - Unit Interpretation Reference Range Comment Sep 13, 2023 01:18 PM [facility] ([facility]) VITAMIN B12 Specimen Type: SERUM No comment entered. Ordering Provider: FLYNN DEJESUS Report Released Date/Time: Sep 08, 2023 04:05 PM Reporting Lab: [facility] [address] [facility] [address] Performing Lab: [address] [address] VITAMIN B12 359 pg/mL 200-900 Sep 13, 2023 01:18 PM [facility] ([place]) VITAMIN D (25-OH) Specimen Type: SERUM No comment entered. Ordering Provider: FLYNN DJEESUS Report Released Date/Time: Sep 08, 2023 04:05 PM Reporting Lab: [address] [address] Performing Lab: [address] [address] VITAMIN D (25-OH) 39 ng/mL 20-50 Sep 13, 2023 01:18 PM [place] ([place]) MICROALBUMIN CREATININE RATIO PANEL Specimen Type: URINE No comment entered. Ordering Provider: FLYNN DEJESUS Report Released Date/Time: Sep 08, 2023 04:05 PM Reporting Lab: [address] [address] Performing Lab: [address] [address] MICROALBUMIN/C REATININE RATIO 16.2 mg/g 0-29.9 MICROALBUMIN,Q UANTITATIVE 2.8 mg/dL RR UNAVAIL CREATININE URINE 172.87 mg/dL Sep 13, 2023 01:18 PM [facility] ([facility]) URINALYSIS Specimen Type: URINE Comment: If Glucose = >500 and Ketones are positive, please alert the Physician. Ordering Provider: FLYNN DEJESUS Report Released Date/Time: Sep 08, 2023 04:05 PM Reporting Lab: [address] [address] Performing Lab: [address] [address] UA COLOR Yellow Yellow UA APPEARANCE Clear Clear UA GLUCOSE NEGATIVE mg/dL Negative UA KETONES NEGATIVE mg/dL Negative UA BLOOD NEGATIVE mg/dL Negative UA PROTEIN 20 mg/dL Negative UA NITRITE NEGATIVE mg/dL Negative UA BILIRUBIN NEGATIVE mg/dL Negative UA SPECIFIC GRAVITY 1.027 H 1.016-1.022 UA pH 5.5 5.0-9.0 UA UROBILINOGEN <2.0 mg/dL <2.0 UA LEUKOCYTE NEGATIVE Negative Sep 13, 2023 01:18 PM [facility] ([facility]) HEMOGLOBIN A1C PANEL Specimen Type: BLOOD [...] Sep 08, 2023 04:05 PM Reporting Lab: [address] [address] Performing Lab: [address] [address] HEMOGLOBIN A1C 6.6 H 4.0-5.6 Sep 13, 2023 01:18 PM [facility] ([facility]) TSH Specimen Type: SERUM No comment entered. Ordering Provider: FLYNN DEJESUS Report Released Date/Time: Sep 08, 2023 04:05 PM Reporting Lab: [address] [address] Performing Lab: [address] [address] TSH 1.81 u[IU]/mL 0.35-5.00 Sep 13, 2023 01:18 PM [facility] ([facility]) LIVER FUNCTION Specimen Type: SERUM No comment entered. Ordering Provider: FLYNN DEJESUS Report Released Date/Time: Sep 08, 2023 04:05 PM Reporting Lab: [address] [address] Performing Lab: [address] [address] PROTEIN,TOTAL 7.1 g/dL 6.0-8.3 ALBUMIN 3.8 g/dL 3.5-5.0 ALKALINE PHOSPHATASE 82 U/L 40-150 AST 16 U/L 5-34 ALT 6 U/L BILIRUBIN, TOTAL 0.8 mg/dL 0.2-1.2 Sep 13, 2023 01:18 PM [facility] ([facility]) BASIC METABOLIC PANEL (non-fasting) Specimen Type: SERUM No comment entered. Ordering Provider: FLYNN DEJESUS Report Released Date/Time: Sep 08, 2023 04:05 PM Reporting Lab: [address] [address] Performing Lab: [address] [address] UREA NITROGEN 23 mg/dL 7-25 GLUCOSE 120 mg/dL H 65-100 SODIUM 138 mmol/L 135-145 POTASSIUM 3.9 mmol/L 3.5-5.0 CHLORIDE 104 mmol/L 100-110 CO2 25 meq/L 20-30 CREATININE, Serum 1.15 mg/dL 0.50-1.40 eGFR(CKD-EPI 2020) 64 mL/min >60 Sep 13, 2023 01:18 PM [facility] ([facility]) LIPID PANEL, NON FASTING Specimen Type: SERUM No comment entered. Ordering Provider: FLYNN DEJESUS Report Released Date/Time: Sep 08, 2023 04:05 PM Reporting Lab: [address] [address] Performing Lab: [address] [address] CHOLESTEROL 181 mg/dL TRIGLYCERIDE 142 mg/dL 0-150 LDL calculated 113 mg/dL 0-129 CHOL/HDL 4.5 HDL CHOLESTEROL 40 mg/dL 40-60 Sep 13, 2023 01:18 PM [facility] ([facility]) CBC AND DIFF (AUTO) Specimen Type: BLOOD No comment entered. Ordering Provider: FLYNN DEJESUS Report Released Date/Time: Sep 08, 2023 04:05 PM Reporting Lab: [address] [address] Performing Lab: [address] [address] WBC 8.48 10*3/uL 4.50-11.00 RBC 5.71 10*6/uL H 4.23-5.66 HGB 16.6 g/dL 12.8-17 HCT 49.8 39.2-50.4 MCV 87.2 fL 82-99 MCHC 33.3 g/dL 30.8-35.1 PLT 242 10*3/uL 140-360 RDW-CV 13.7 12.0-16.0 Bowie, Abs 0.73 10*3/uL 0.30-1.10 MCH 29.1 pg 26.2-32.6 Neut % 71.1 43.7-75.8 Lymph % 18.8 14.0-42.3 Bowie % 8.6 5.1-13.7 Eos % 0.6 0.4-6.8 Baso % 0.7 0.1-2.0 Neut, Abs 6.03 10*3/uL 2.20-7.60 Lymph, Abs 1.59 10*3/uL 1.00-3.20 Eos, Abs 0.05 10*3/uL 0.03-0.44 Baso, Abs 0.06 10*3/uL 0.01-0.13 Immature Gran % 0.2 0.0-0.7 Immature Gran, Abs 0.02 10*3/uL 0.00-0.06 Vital Signs: All taken on the encounter date This section contains inpatient and outpatient Vital Signs collected on the date of the Encounter. Date/Time Temperature Pulse Blood Pressure Respiratory Rate SP02 Pain Height Weight Body Mass Index Source Oct 10, 2023 02:13 PM 97.8 91 135/78 20 98 6 206.4 34 [facility] [facility] ([facility]) Social History: Smoking Status (Most current) and Tobacco Use (All prior to encounter date) This section includes the most current, and the historical, smoking and tobacco- related health factors from the [place] facility where the Encounter took place. Current Smoking Status This section includes the most current smoking, or tobacco-related health factor, from the [place] facility where the Encounter took place. Date/Time Current Smoking Status Comment Jo william Sep 22, 2023 01:00 PM [place]-TOBACCO NEVER USED [facility] ([facility]) Tobacco Use History This section includes a history of the smoking, or tobacco-related health factors, that were collected on or before the date of the Encounter. The data comes from the [place] facility where the Encounter took place. Date/Time Smoking Status/Tobacco Use Comment F acility December 02, 2022 11:00 AM [place]-TOBACCO NEVER USED [facility] ([facility]) Apr 15, 2022 [...] the Encounter. The data comes from all [place] treatment facilities. Date/Time Radiology Report Provider Source Oct 11, 2023 12:[address] LUMBAR SPINE W/O CONT: MUKUL KAY [id number] M Exm Date: OCT 11, 2023@12:58 Req Phys: LENORA DEJESUS Pat Loc: CWM/GO/PACT 1 [facility] (Req'g Loc) Img Loc: NH[facility]/CT Service: Unknown (Case [id number] COMPLETE) CT LUMBAR SPINE W/O CONT (CT Detailed) CPT:84185 Reason for Study: back pain Clinical History: radiating left leg Report Status: Verified Date Reported: OCT 12, 2023 Date Verified: OCT 12, 2023 Pound Attendant E-Sig: Report: CT LUMBAR SPINE W/O CONT HISTORY: back pain COMPARISON: None TECHNIQUE: CT of the lumbar spine performed without contrast. Images were received by the [place] [facility] ([facility] for interpretation. RADIATION [...] chronic. Correlate clinically. READING PHYSICIAN: Mir Nuñez -[phone] 10/12/2023 10:03 [facility] [phone] (For Medical Practitioner Use Only) Attention Patients / Veterans: If you have questions or concerns about these test results, please contact your ordering provider or primary care team. Primary Diagnostic Code: SIGNIFICANT ABNORMALITY, ATTN NEEDED Primary Interpreting Staff: RADIOLOGY,OUTSIDE SERVICE, Staff Physician / RADIOLOGY,OUTSIDE SERVICE [place] [facility] Encounter Notes: All associated encounter notes This section contains the clinical notes associated to the Encounter. Date/Time Encounter Note(s) Provider Source Oct 13, 2023 12:32 PM ADDENDUM: LOCAL TITLE: Addendum STANDARD TITLE: ADDENDUM DATE OF NOTE: OCT 13, 2023@12:32:30 ENTRY DATE: OCT 13, 2023@12:32:31 AUTHOR: LENORA DEJESUS EXP COSIGNER: URGENCY: STATUS: COMPLETED Message left for to discuss CT scan of back. /kasia/ LENORA DEJESUS MD PHYSICIAN Signed: 10/13/2023 12:32 Receipt Acknowledged By: 10/13/2023 16:05 /kasia/ FRANCY MURO, RN REGISTERED NURSE for TODD Oscar FRANCES --- Original Document --- 10/10/23 NOTE: PRIMARY CARE VISIT MUKUL KAY, is a 82 yo WHITE MALE [place] the [place] [facility]. TYPE OF VISIT: Face to face 82-year-old [place] with significant Charcot foot disease, Parkinson's disease, zlx-yymgkha-hwykrlrpq diabetes, HTN, atrial fibrillation/sick sinus syndrome status post pacemaker, tremors,and history of lymphoma, BCC, and malignant melanoma. We are following up because of recent worsening of back pain as well as mood changes. He states that he does not want to see mental health at this time. He denies any suicidality. Left sided pain in buttock when stands or sits. better when moving around. History hernuations in back but never bothered until 2 weeks Right knee sharp pain over the last few months. The pain in the shoulders is constant. Recent labs and all medications were reconciled during this visit. HEALTHCARE PROVIDERS: CP: [place] Cardiology: [facility] Derm: [place] Wound clinic: [facility] Social Hx: The patient has a roommate. No alcohol, nicotine, MJ. No regular exercise. Social Hx: MARITAL STATUS - HISTORY: PERIOD OF SERVICE - [facility] [employer] - [facility] FROM May TO Jul COMBAT SERVICE INDICATED: No VITAL SIGNS: Temperature 97.8 F [36.6 C] (10/10/2023 14:13) Blood Pressure 135/78 (10/10/2023 14:13) Pulse 91 (10/10/2023 14:13) Respiration 20 (10/10/2023 14:13) Pain 6 (10/10/2023 14:13) BMI BMI: 34.4 Weight 206.4 lb [93.62 kg] (10/10/2023 14:13) Pulse Oximetry 98% (10/10/2023 14:13) ASSISTIVE DEVICES: REVIEW OF SYSTEMS: CONSTITUTIONAL: No fevers, chills, weight loss/gain ENT: No sore throat, sneezing, congestion, rhinorrhea, anosmia, or ageusia. CARDIOVASCULAR: No chest pain, palpitations, or increased pedal edema RESPIRATORY: No SOB, cough, sputum, wheeze. GASTROINTESTINAL: Denies abd pain, N/V/D. No melena or hematochezia. No tenesmus or constipation. GENITOURINARY: No burning micturition. No urinary frequency or urgency. No nocturia. MUSCULOSKELETAL: ++ Chronic pain in both shoulders right knee and left lower back. PSYCHIATRIC: No new anxiety or depression. No sleep disturbance. NEUROLOGIC: No headaches, dizziness, neuropathy of the bilateral feet. With deformities EXAMINATION General: Well-appearing in no obvious distress. Mental Status: Alert [...] foot wound examined, skin intact Neuro: grossly intact, significant neuropathy feet + Right knee with full range of motion but painful with crepitus. + Bilateral shoulders: Difficulty flexing past 90 degrees, cannot abduct past 90 degrees. Derm: +hemosiderin staining to BLLE Get up and go slow and antalgic (X )with walker, using wheelchair for long distance in clinic ALLERGIES: ========= LISINOPRIL >> HEALTH MAINTENANCE PREVENTIVE MEDICINE GOALS Medication Reconciliation DUE NOW ASSESSMENT/PLAN: Active problems - Computerized Problem List is the source for the followin. Basal Cell Carcinoma of Skin ([facility] [id number]) 2. Parkinson's disease 3. Diabetes Mellitus Type 2 ([facility] [id number]) 4. HTN - Hypertension ([facility] [id number]) 5. History of malignant melanoma of the skin 6. AF- Atrial Fibrillation ([facility] [id number]) 7. Permanent cardiac pacemaker 8. Lymphedema of leg 9. Tremor ==Back pain radiating into the left lower leg: Getting CT scan tomorrow start lidocaine patch continue to follow-up with pain management. = Mood disorder: Patient appears much more upbeat today and declines mental health consult at this time. He feels he has plenty supports around with his family in [place]. He loves his cat very much and his cat brings him iwona on a daily basis which is reassuring! == Charcot foot: Limited mobility, will get Occupational Therapy consultation to assess home. He has difficulty getting in and out of his bathtub. == Bilateral shoulder pain: Discussed referring to physiatry. There is severe osteoarthritis. He has a daughter who is an orthopedic PA and he opts to see her regarding this first. ==Ct Scan results: 1. 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 This could be more definitively characterized with MRI. 2. Mild anterior compression deformity of T12, probably chronic. Correlate clinically. FOLLOW UP: RTC Below & sooner PRN UPCOMING APPOINTMENTS: 10/11/2023 13:00 CWM/NO/CAT SCAN 10/16/2023 14:00 CWM/GO/DERMATOLGY A 10/24/2023 11:30 CWM/SO/PHARM/PACT 3 TEL 10/26/2023 13:30 CWM/NO/NEUROLOGY 11/20/2023 14:45 CWM/NO/PAIN MD CLINIC 11/21/2023 15:00 CWM/NO/DIABETES EDU1 12/06/2023 13:00 CWM/GO/PACT 1 WH 06/25/2024 14:30 NH[facility]/OPTOMETRY/[place]/ 45 minutes spent in patient evaluation, data review, and patient education. All medications were reconciled during this visit. No barriers; Patient understands and agrees to current treatment plan. If pt has any questions, concerns, or changes in current health status he/she will call or come in to the [place]. /es/ LENORA DEJESUS MD PHYSICIAN Signed: 10/13/2023 12:32 LENORA DEJESUS ([facility]) Oct 10, 2023 02:24 PM PHYSICIAN NOTE: LOCAL TITLE: MD NOTE STANDARD TITLE: PHYSICIAN NOTE DATE OF NOTE: OCT 10, 2023@14:24 ENTRY DATE: OCT 10, 2023@14:24:50 AUTHOR: LENORA DEJESUS EXP COSIGNER: URGENCY: STATUS: COMPLETED NOTE Has ADDENDA PRIMARY CARE VISIT MUKUL KAY, is a 82 yo WHITE M[place] the [place] [facility]. TYPE OF VISIT: Face to face 82-year-old [place] with significant Charcot foot disease, Parkinson's disease, xeq-dgujhbs-dxtiqercd diabetes, HTN, atrial fibrillation/sick sinus syndrome status post pacemaker, tremors,and history of lymphoma, BCC, and malignant melanoma. We are following up because of recent worsening of back pain as well as mood changes. He states that he does not want to see mental health at this time. He denies any suicidality. Left sided pain in buttock when stands or sits. better when moving around. History hernuations in back but never bothered until 2 weeks Right knee sharp pain over the last few months. The pain in the shoulders is constant. Recent labs and all medications were reconciled during this visit. HEALTHCARE PROVIDERS: [place]: [place] Cardiology: [facility] [place]erm: [place] W[place]: [facility] Social Hx: The patient has a roommate. No alcohol, nicotine, MJ. No regular exercise. Social Hx: MARITAL STATUS - HISTORY: PERIOD OF SERVICE - [facility] FROM May TO Jul COMBAT SERVICE INDICATED: No VITAL SIGNS: Temperature 97.8 F [36.6 C] (10/10/2023 14:13) Blood Pressure 135/78 (10/10/2023 14:13) Pulse 91 (10/10/2023 14:13) Respiration 20 (10/10/2023 14:13) Pain 6 (10/10/2023 14:13) BMI BMI: 34.4 Weight 206.4 lb [93.62 kg] (10/10/2023 14:13) Pulse Oximetry 98% (10/10/2023 14:13) ASSISTIVE DEVICES: REVIEW OF SYSTEMS: CONSTITUTIONAL: No fevers, chills, weight loss/gain ENT: No sore throat, sneezing, congestion, rhinorrhea, anosmia, or ageusia. CARDIOVASCULAR: No chest pain, palpitations, or increased pedal edema RESPIRATORY: No SOB, cough, sputum, wheeze. GASTROINTESTINAL: Denies abd pain, N/V/D. No melena or hematochezia. No tenesmus or constipation. GENITOURINARY: No burning micturition. No urinary frequency or urgency. No nocturia. MUSCULOSKELETAL: ++ Chronic pain in both shoulders right knee and left lower back. PSYCHIATRIC: No new anxiety or depression. No sleep disturbance. NEUROLOGIC: No headaches, dizziness, neuropathy of the bilateral feet. With deformities EXAMINATION General: Well-appearing in no obvious distress. Mental Status: Alert [...] foot wound examined, skin intact Neuro: grossly intact, significant neuropathy feet + Right knee with full range of motion but painful with crepitus. + Bilateral shoulders: Difficulty flexing past 90 degrees, cannot abduct past 90 degrees. Derm: +hemosiderin staining to BLLE Get up and go slow and antalgic (X )with walker, using wheelchair for long distance in clinic ALLERGIES: ========= LISINOPRIL >> HEALTH MAINTENANCE PREVENTIVE MEDICINE GOALS Medication Reconciliation DUE NOW ASSESSMENT/PLAN: Active problems - Computerized Problem List is the source for the followin. Basal Cell Carcinoma of Skin ([facility] [id number]) 2. Parkinson's disease 3. Diabetes Mellitus Type 2 ([facility] [id number]) 4. HTN - Hypertension ([facility] [id number]) 5. History of malignant melanoma of the skin 6. AF- Atrial Fibrillation ([facility] [id number]) 7. Permanent cardiac pacemaker 8. Lymphedema of leg 9. Tremor ==Back pain radiating into the left lower leg: Getting CT scan tomorrow start lidocaine patch continue to follow-up with pain management. = Mood disorder: Patient appears much more upbeat today and declines mental health consult at this time. He feels he has plenty supports around with his family in [place]. He loves his cat very much and his cat brings him iwona on a daily basis which is reassuring! == Charcot foot: Limited mobility, will get Occupational Therapy consultation to assess home. He has difficulty getting in and out of his bathtub. == Bilateral shoulder pain: Discussed referring to physiatry. There is severe osteoarthritis. He has a daughter who is an orthopedic PA and he opts to see her regarding this first. ==Ct Scan results: 1. 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 This could be more definitively characterized with MRI. 2. Mild anterior compression deformity of T12, probably chronic. Correlate clinically. FOLLOW UP: RTC Below & sooner PRN UPCOMING APPOINTMENTS: 10/11/2023 13:00 CWM/NO/CAT SCAN 10/16/2023 14:00 CWM/GO/DERMATOLGY A 10/24/2023 11:30 CWM/SO/PHARM/PACT 3 TEL 10/26/2023 13:30 CWM/NO/NEUROLOGY 11/20/2023 14:45 CWM/NO/PAIN MD CLINIC 11/21/2023 15:00 CWM/NO/DIABETES EDU1 12/06/2023 13:00 CWM/GO/PACT 1 WH 06/25/2024 14:30 NH[facility]/OPTOMETRY/[place]/ 45 minutes spent in patient evaluation, data review, and patient education. All medications were reconciled during this visit. No barriers; Patient understands and agrees to current treatment plan. If pt has any questions, concerns, or changes in current health status he[facility]she will [facility]/ LENORA DEJESUS MD PHYSICIAN Signed: 10/13/2023 12:32 10/13/2023 ADDENDUM STATUS: COMPLETED Message left for to discuss CT scan of back. /kasia/ LENORA DEJESUS MD PHYSICIAN Signed: 10/13/2023 12:32 Receipt Acknowledged By: * AWAITING SIGNATURE * TODD DANIELS SHEVAUGHN M [place] [facility])
--- OUTSIDE RECORDS SUMMARY | 2024-08-07 12:18 | XMS_ITS | Encounter Summary ---
Author Name [place] Organization [facility] Address [address] [place] [id number] Care Team Providers Care Freight Car Loader Name Role Phone LENORA DEJESUS Primary Care [...] Welsh's Name Patient's Relationship to Policy Welsh [facility] MEDICARE SUPPLEMEN [place] IND Jul 31, 2014 MEDICAR E SUPPLEM E [id number] [phone] FR GAMALIEL KAY PATIENT [facility] MEDICARE SUPPLEMEN [place] MEDIC ARE SUPP Jul 31, 2014 SUPP [id number] [phone] FR RAHUL EDGISSEL PATIENT MEDICARE (WNR) MEDICARE (M) PART A Jan 29, 2004 PART A [id number] [phone] FR GAMALIEL KAY PATIENT MEDICARE (WN) MEDICARE (M) PART B Jan 29, 2004 PART B [id number] [phone] FR GAMALIEL KAY PATIENT [facility] (WN) MEDICARE ADVANTAGE [facility] Jul 31, 2023 [id number] [phone] FR GAMALIEL KAY PATIENT [facility] (WNR) MEDICARE ADVANTAGE [facility] (WNR) Jul 31, 2023 [id number] [phone] FR GAMALIEL KAY PATIENT Selected Encounter This section includes the information on record at [facility] for the Encounter. Date/Time Encounter Type Encounter Description Reason Pro vider Source IHE Encounter Template Text not used by [facility]
--- OUTSIDE RECORDS SUMMARY | 2024-08-07 12:18 | XMS_ITS | Encounter Summary ---
Author Name [place] Organization [place] Address [address] [place] [address] Care Team Providers Care Sterile Supervisor Name Role Phone LENORA DEJESUS Primary [...] Jul 31, 2014 MEDICAR E SUPPLEM E [id number] [phone] FR GAMALIEL KAY PATIENT [facility] MEDICARE SUPPLEMEN [place] MEDIC ARE SUPP Jul 31, 2014 SUPP [id number] [phone] FR GAMALIEL KAY PATIENT MEDICARE (WNR) MEDICARE (M) PART A Jan 29, 2004 PART A [id number] [phone] FR GAMALIEL KAY PATIENT MEDICARE (WNR) MEDICARE (M) PART B Jan 29, 2004 PART B [id number] [phone] FR GAMALIEL KAY PATIENT [facility] (WNR) MEDICARE ADVANTAGE [facility] Jul 31, 2023 [id number] RAHUL GAMALIEL PATIENT [facility] MCR (WNR) MEDICARE ADVANTAGE MCR (WNR) Jul 31, 2023 [id number] RAHULFR GAMALIEL MACHADO PATIENT Selected Encounter This section includes the information on record at [facility] for the Encounter. Date/Time Encounter Type Encounter Description Reason Pro vider Source Oct 02, 2023 12:00 AM Outpatient Encounter EVENT (HISTORICAL) IHE Encounter Template Text not used by [facility] Plan of Treatment: Future Appointments (+ 6 months) and Future Tests (+/- 45 days) The Plan of Treatment section includes future care activities for the patient from all [place] treatmentfacilities. This section includes future appointments and future orders which are active, pending or scheduled. Future Appointments This section includes appointments that were scheduled to occur 6 months from the date of the Encounter, up to a maximum of 20 appointments. The data comes from all [place] treatment facilities. Appointment Date/Time Appointment Type Appointme nt Facility Name Oct 03, 2023 11:30 AM AMBULATORY - MEDICINE [facility] [place] [facility] Oct 06, 2023 03:00 PM AMBULATORY - PSYCHIATRY [facility] [place] [facility] Oct 10, 2023 02:00 PM AMBULATORY - MEDICINE [facility] Oct 11, 2023 01:00 PM AMBULATORY - NONE [facility] [place] [facility] Oct 16, 2023 02:00 PM AMBULATORY - MEDICINE [facility] [place] [facility] Oct 24, 2023 11:30 AM AMBULATORY - MEDICINE [facility] [place] [facility] Oct 26, 2023 01:30 PM AMBULATORY - NEUROLOGY [facility] [place] [facility] Nov 13, 2023 01:00 PM AMBULATORY - MEDICINE [facility] [place] [facility] December 11, 2023 10:30 AM AMBULATORY - MEDICINE [facility] [place] [facility] December 20, 2023 09:00 AM AMBULATORY - MEDICINE [facility] [place] [facility] December 20, 2023 02:00 PM AMBULATORY - MEDICINE [facility] Jan 08, 2024 10:30 AM AMBULATORY - MEDICINE [facility] [place] [facility] Jan 11, 2024 01:00 PM [facility] Jan 30, 2024 01:00 PM [facility] Mar 27, 2024 01:00 PM AMBULATORY - MEDICINE [facility] ([facility]) Active, Pending, and Scheduled Orders This section includes a listing of several types of active, pending, and scheduled orders, including clinic medications orders, diagnostic test orders, procedure orders and consult orders; where the start date of the order is 45 days before the date of the Encounter or 45 days after the date of theEncounter. The data comes from all [place] treatment facilities. Test Date/Time Test Type Test Details Facility Name 2023 01:37 PM Consult Order COMMUNITY CARE-NEUROLOGY Cons Animal Caretaker Supervisor's Choice [facility] Lab Results: +/- 30 days of the encounter This section includes the Chemistry and Hematology Lab Results on record with [facility] for the patient. Radiology Reports and Pathology Reports are provided separately, in subsequent sections. Lab Results This section contains the Chemistry/Hematology Results that were resulted 30 days before or 30 daysafter the date of the Encounter. Date/Time Source Result Type Result - Unit Interpretation Reference Range Comment Sep 13, 2023 01:18 PM [facility] ([facility]) VITAMIN D (25-OH) Specimen Type: SERUM No comment entered. Ordering Provider: FLYNN DEJESUS Report Released Date/Time: Sep 08, 2023 04:05 PM Reporting Lab: [address] [address] Performing Lab: [address] [address] VITAMIN D (25-OH) 39 ng/mL 20-50 Sep 13, 2023 01:18 PM [facility] MICROALBUMIN CREATININE RATIO PANEL Specimen Type: URINE No comment entered. Ordering Provider: FLYNN DEJESUS Report Released Date/Time: Sep 08, 2023 04:05 PM Reporting Lab: [address] [address] Performing Lab: [address] [address] MICROALBUMIN/C REATININE RATIO 16.2 mg/g 0-29.9 MICROALBUMIN,Q UANTITATIVE 2.8 mg/dL RR UNAVAIL CREATININE URINE 172.87 mg/dL Sep 13, 2023 01:18 PM [facility] ([facility]) VITAMIN B12 Specimen Type: SERUM No comment entered. Ordering Provider: FLYNN DEJESUS Report Released Date/Time: Sep 08, 2023 04:05 PM Reporting Lab: [address] [address] Performing Lab: [address] [address] VITAMIN B12 359 pg/mL 200-900 Sep 13, 2023 01:18 PM [facility] ([facility]) URINALYSIS Specimen Type: URINE Comment: If Glucose = >500 and Ketones are positive, please alert the Physician. Ordering Provider: FLYNN DEJESUS Report Released Date/Time: Sep 08, 2023 04:05 PM Reporting Lab: [address] [address] Performing Lab: [address] [address] UA COLOR Yellow Yellow UA APPEARANCE Clear Clear UA GLUCOSE NEGATIVE mg/dL Negative UA KETONES NEGATIVE mg/dL Negative UA BLOOD NEGATIVE mg/dL Negative UA PROTEIN 20 mg/dL Negative UA NITRITE NEGATIVE mg/dL Negative UA BILIRUBIN NEGATIVE mg/dL Negative UA SPECIFIC GRAVITY 1.027 H 1.016-1.022 UA pH 5.5 5.0-9.0 UA UROBILINOGEN <2.0 mg/dL <2.0 UA LEUKOCYTE NEGATIVE Negative Sep 13, 2023 01:18 PM [facility] ([facility]) HEMOGLOBIN A1C PANEL Specimen Type: BLOOD [...] Sep 08, 2023 04:05 PM Reporting Lab: [address] [address] Performing Lab: [address] [address] HEMOGLOBIN A1C 6.6 H 4.0-5.6 Sep 13, 2023 01:18 PM [facility] ([facility]) TSH Specimen Type: SERUM No comment entered. Ordering Provider: FLYNN DEJESUS Report Released Date/Time: Sep 08, 2023 04:05 PM Reporting Lab: [address] [address] Performing Lab: [address] [address] TSH 1.81 u[IU]/mL 0.35-5.00 Sep 13, 2023 01:18 PM [facility] ([facility]) BASIC METABOLIC PANEL (non-fasting) Specimen Type: SERUM No comment entered. Ordering Provider: FLYNN DEJESUS Report Released Date/Time: Sep 08, 2023 04:05 PM Reporting Lab: [address] [address] Performing Lab: [address] [address] UREA NITROGEN 23 mg/dL 7-25 GLUCOSE 120 [...] Sep 08, 2023 04:05 PM Reporting Lab: [address] [address] Performing Lab: [address] [address] PROTEIN,TOTAL 7.1 g/dL 6.0-8.3 ALBUMIN 3.8 g/dL 3.5-5.0 ALKALINE PHOSPHATASE 82 U/L 40-150 AST 16 U/L 5-34 ALT 6 U/L BILIRUBIN, TOTAL 0.8 mg/dL 0.2-1.2 Sep 13, 2023 01:18 PM [facility] ([facility]) LIPID PANEL, NON FASTING Specimen Type: SERUM No comment entered. Ordering Provider: FLYNN DEJESUS Report Released Date/Time: Sep 08, 2023 04:05 PM Reporting Lab: [address] [address] Performing Lab: [address] [address] CHOLESTEROL 181 mg/dL TRIGLYCERIDE 142 mg/dL 0-150 LDL calculated 113 mg/dL 0-129 CHOL/HDL 4.5 HDL CHOLESTEROL 40 mg/dL 40-60 Sep 13, 2023 01:18 PM [facility] ([facility]) CBC AND DIFF (AUTO) Specimen Type: BLOOD No comment entered. Ordering Provider: FLYNN DEJESUS Report Released Date/Time: Sep 08, 2023 04:05 PM Reporting Lab: [address] [address] Performing Lab: [address] [address] WBC 8.48 10*3/uL 4.50-11.00 RBC 5.71 10*6/uL H 4.23-5.66 HGB 16.6 g/dL 12.8-17 HCT 49.8 39.2-50.4 MCV 87.2 fL 82-99 MCHC 33.3 g/dL 30.8-35.1 PLT 242 10*3/uL 140-360 RDW-CV 13.7 12.0-16.0 Brooke, Abs 0.73 10*3/uL 0.30-1.10 MCH 29.1 pg 26.2-32.6 Neut % 71.1 43.7-75.8 Lymph % 18.8 14.0-42.3 Brooke % 8.6 5.1-13.7 Eos % 0.6 0.4-6.8 [...] the Encounter. The data comes from all [place] treatment facilities. Date/Time Radiology Report Provider Source Oct 11, 2023 12:[address] LUMBAR SPINE W/O CONT: MUKUL KAY [id number] -1940 M Exm Date: OCT 11, 2023@12:58 Req Phys: LENORA DEJESUS Pat Loc: CWM/GO/PACT 1 WH (Req'g Loc) Img Loc: [place]/CT Service: Unknown (Case [id number] COMPLETE) CT LUMBAR SPINE W/O CONT (CT Detailed) CPT:74992 Reason for Study: back pain Clinical History: radiating left leg Report Status: Verified Date Reported: OCT 12, 2023 Date Verified: OCT 12, 2023 Entry Level Manufacturing Engineer E-Sig: Report: CT LUMBAR SPINE W/O CONT HISTORY: back pain COMPARISON: None TECHNIQUE: CT of the lumbar spine performed without contrast. Images were received by the [place] National Teleradiology Program (NTP) for interpretation. RADIATION [...] chronic. Correlate clinically. READING PHYSICIAN: Mir Nuñez -[phone] 10/12/2023 10:03 [facility] National Teleradiology Program [phone] (For Medical Practitioner Use Only) Attention Patients / Veterans: If you have questions or concerns about these test results, please contact your ordering provider or primary care team. Primary Diagnostic Code: SIGNIFICANT ABNORMALITY, ATTN NEEDED Primary Interpreting Staff: RADIOLOGY,OUTSIDE SERVICE, Staff Physician / RADIOLOGY,OUTSIDE SERVICE [facility] Encounter Notes: All associated encounter notes This section contains the clinical notes associated to the Encounter. Date/Time Encounter Note(s) Provider Source Oct 02, 2023 12:00 AM NONVA NOTE: LOCAL TITLE: NON-VA OUTPATIENT NOTES STANDARD TITLE: NONVA NOTE DATE OF NOTE: OCT 02, 2023 ENTRY DATE: OCT 18, 2023@06:28 AUTHOR: AMRIT FIGUEROA MA EXP COSIGNER: URGENCY: STATUS: COMPLETED VistA Imaging - Scanned Document SCANNED DOCUMENT SIGNATURE NOT REQUIRED Electronically Filed: 10/18/2023 by: AMRIT FIGUEROA AQUATIC SCIENTIST AMRIT FIGUEROA [facility]
--- OUTSIDE RECORDS SUMMARY | 2024-08-07 12:18 | XMS_ITS | Encounter Summary ---
Author Name Department [place] Organization [place] Address [address] [place] [address] Care Team Providers Care Patrol Commander Name Role Phone LENORA DEJESUS Primary Care [...] Jul 31, 2014 MEDICAR E SUPPLEM E [id number] [phone] FR GAMALIEL KAY PATIENT [facility] MEDICARE SUPPLEMEN [place] MEDIC ARE SUPP Jul 31, 2014 SUPP [id number] [phone] FR GAMALIEL KAY PATIENT MEDICARE (WNR) MEDICARE (M) PART A Jan 29, 2004 PART A [id number] [phone] FR GAMALIEL KAY PATIENT MEDICARE (WNR) MEDICARE (M) PART B Jan 29, 2004 PART B [id number] [phone] FR GAMALIEL KAY PATIENT [facility] (WNR) MEDICARE ADVANTAGE [facility] Jul 31, 2023 [id number] [phone] FR GAMALIEL KAY PATIENT [facility] MCR (WNR) MEDICARE ADVANTAGE MCR (WNR) Jul 31, 2023 [id number] [phone] FR GAMALIEL KAY PATIENT Selected Encounter This section includes the information on record at [place] for the Encounter. Date/Time Encounter Type Encounter Description Reason Pro vider Source Oct 13, 2023 03:52 PM Outpatient Encounter ADMIN PAT ACTIVTIES (MASNONCT) IHE Encounter Template Text not used by [place] Plan of Treatment: Future Appointments (+ 6 months) and Future Tests (+/- 45 days) The Plan of Treatment section includes future care activities for the patient from all [place] treatmentfacilities. This section includes future appointments and future orders which are active, pending or scheduled. Future Appointments This section includes appointments that were scheduled to occur 6 months from the date of the Encounter, up to a maximum of 20 appointments. The data comes from all [place] treatment facilities. Appointment Date/Time Appointment Type Appointme nt Facility Name Oct 16, 2023 02:00 PM AMBULATORY - MEDICINE [facility] [place] [facility] Oct 24, 2023 11:30 AM AMBULATORY - MEDICINE [facility] [place] [facility] Oct 26, 2023 01:30 PM AMBULATORY - NEUROLOGY [facility] [place] [facility] Nov 13, 2023 01:00 PM AMBULATORY - MEDICINE [facility] [place] [facility] December 11, 2023 10:30 AM AMBULATORY - MEDICINE [facility] [place] [facility] December 20, 2023 09:00 AM AMBULATORY - MEDICINE [facility] [place] [facility] December 20, 2023 02:00 PM AMBULATORY - MEDICINE [facility] Jan 08, 2024 10:30 AM AMBULATORY - MEDICINE [facility] [place] [facility] Jan 11, 2024 01:00 PM AMBULATORY - MEDICINE [facility] [place] [facility] Jan 30, 2024 01:00 PM AMBULATORY - MEDICINE [facility] [place] [facility] Mar 27, 2024 01:00 PM AMBULATORY - MEDICINE [facility] Apr 04, 2024 08:00 AM AMBULATORY - MEDICINE [facility] [place] [facility] Active, Pending, and Scheduled Orders This section includes a listing of several types of active, pending, and scheduled orders, including clinic medications orders, diagnostic test orders, procedure orders and consult orders; where the start date of the order is 45 days before the date of the Encounter or 45 days after the date of theEncounter. The data comes from all [place] treatment facilities. Test Date/Time Test Type Test Details Facility Name 2023 01:37 PM Consult Order COMMUNITY CARE-NEUROLOGY Cons Dependency Counselor's Choice [facility] Radiology Reports: +/- 30 days of [...] the Encounter. The data comes from all [place] treatment facilities. Date/Time Radiology Report Provider Source Oct 11, 2023 12:[address] LUMBAR SPINE W/O CONT: MUKUL KAY [id number] -1940 M Exm Date: OCT 11, 2023@12:58 Req Phys: LENORA DEJESUS Pat Loc: CWM/GO/PACT 1 WH (Req'g Loc) Img Loc: [place] Service: Unknown (Case 239 COMPLETE) CT LUMBAR SPINE W/O CONT (CT Detailed) CPT:80377 Reason for Study: back pain Clinical History: radiating left leg Report Status: Verified Date Reported: OCT 12, 2023 Date Verified: OCT 12, 2023 Store Director E-Sig: Report: CT LUMBAR SPINE W/O CONT HISTORY: back pain COMPARISON: None TECHNIQUE: CT of the lumbar spine performed without contrast. Images were received by the [place] National Teleradiology Program (NTP) for interpretation. RADIATION [...] chronic. Correlate clinically. READING PHYSICIAN: Mir Nuñez -[phone] 10/12/2023 10:03 [facility] National Teleradiology Program [phone] (For Medical Practitioner Use Only) Attention Patients / Veterans: If you have questions or concerns about these test results, please contact your ordering provider or primary care team. Primary Diagnostic Code: SIGNIFICANT ABNORMALITY, ATTN NEEDED Primary Interpreting Staff: RADIOLOGY,OUTSIDE SERVICE, Staff Physician / RADIOLOGY,OUTSIDE SERVICE [facility] Encounter Notes: All associated encounter notes This section contains the clinical notes associated to the Encounter. Date/Time Encounter Note(s) Provider Source Oct 13, 2023 03:52 PM ADMINISTRATIVE NOT E: LOCAL TITLE: CCC: SCHEDULING ADMINISTRATION STANDARD TITLE: ADMINISTRATIVE NOTE DATE OF NOTE: OCT 13, 2023@15:52:19 ENTRY DATE: OCT 13, 2023@15:52:19 AUTHOR: EDWIN MACDONALD COSIGNER: URGENCY: STATUS: COMPLETED Patient Demographics Patient Name: MUKUL KAY Patient Primary Phone: [phone] Patient Primary Address: [address] [place] [address] Patient : 1940 Patient Age: 82 Caller/Recipient Relation to Patient: Self Administrative Administrative Note Reason: Returned Call Administrative Note Comments: is returning PCP call from today, please call [place] back at PH# /kasia/ EDWIN MACDONALD VISN1 CCC AMSA Signed: 10/13/2023 15:52 Receipt Acknowledged By: 10/13/2023 16:06 /es/ FRANCY MURO, RN REGISTERED NURSE for TODD DANIELS 10/13/2023 16:26 /es/ LENORA DEJESUS MD PHYSICIAN EDWIN MACDONALD [facility]
--- OUTSIDE RECORDS SUMMARY | 2024-08-07 12:18 | XMS_ITS | Encounter Summary ---
Author Name [place] Address [address] [place] [address] Care Team Providers Care Cylinder Checker Name Role Phone LENORA DEJESUS Primary Care [...] Jul 31, 2014 MEDICAR E SUPPLEM E [id number] [phone] FR GAMALIEL KAY PATIENT [facility] MEDICARE SUPPLEMEN [place] MEDIC ARE SUPP Jul 31, 2014 SUPP [id number] [phone] FR GAMALIEL KAY PATIENT MEDICARE (WNR) MEDICARE (M) PART A Jan 29, 2004 PART A [id number] [phone] FR GAMALIEL KAY PATIENT MEDICARE (WNR) MEDICARE (M) PART B Jan 29, 2004 PART B [id number] [phone] FR GAMALIEL KAY PATIENT [facility] (WNR) MEDICARE ADVANTAGE [facility] ([facility]) Jul 31, 2023 [id number] [phone] FR GAMALIEL KAY PATIENT [facility] MCR (WNR) MEDICARE ADVANTAGE MCR (WNR) Jul 31, 2023 [id number] [phone] FR GAMALIEL KAY PATIENT Selected Encounter This section includes the information on record at [place] for the Encounter. Date/Time Encounter Type Encounter Description Reason Pro vider Source Nov 07, 2023 10:27 AM Outpatient Encounter COMMUNITY CARE CONSULT IHE Encounter Template Text not used by [place] Plan of Treatment: Future Appointments (+ 6 months) and Future Tests (+/- 45 days) The Plan of Treatment section includes future care activities for the patient from [facility] [place] [facility] This section includes future appointments and future orders which are active, pending or scheduled. Future Appointments This section includes appointments that were scheduled to occur 6 months from the date of the Encounter, up to a maximum of 20 appointments. The data comes from all [facility]. Appointment Date/Time Appointment Type Appointme nt Facility Name Nov 13, 2023 01:00 PM AMBULATORY - MEDICINE [place] [facility] [place] [facility] December 11, 2023 10:30 AM AMBULATORY - MEDICINE [facility] [place] [facility] December 20, 2023 09:00 AM AMBULATORY MEDICINE [place] [facility] [place] [facility] December 20, 2023 02:00 PM AMBULATORY - MEDICINE [facility] Jan 08, 2024 10:30 AM AMBULATORY - MEDICINE [facility] [place] [facility] Jan 11, 2024 01:00 PM AMBULATORY - MEDICINE [place] [facility] [place] [facility] Jan 30, 2024 01:00 PM AMBULATORY MEDICINE [place] [facility] [place] [facility] Mar 27, 2024 01:00 PM AMBULATORY - MEDICINE [facility] Apr 04, 2024 08:00 AM AMBULATORY - MEDICINE [facility] [place] [facility] Active, Pending, and Scheduled Orders This section includes a listing of several types of active, pending, and scheduled orders, including clinic medications orders, diagnostic test orders, procedure orders and consult orders; where the start date of the order is 45 days before the date of the Encounter or 45 days after the date of theEncounter. The data comes from all [facility] facilities. Test Date/Time Test Type Test Details Facility Name 2023 01:37 PM Consult Order COMMUNITY CARE-NEUROLOGY Cons Flight Purser's Choice [place] [facility] Radiology Reports: +/- 30 days of [...] CT LUMBAR SPINE W/O CONT: MUKUL KAY [id number] -1940 M Exm Date: OCT 11, 2023@12:58 Req Phys: LENORA DEJESUS Pat Loc: CWM/GO/PACT 1 WH (Req'g Loc) Img Loc: [facility]/CT Service: Unknown (Case 239 COMPLETE) CT LUMBAR SPINE W/O CONT (CT Detailed) CPT:12373 Reason for Study: back pain Clinical History: radiating left leg Report Status: Verified Date Reported: OCT 12, 2023 Date Verified: OCT 12, 2023 Seafood Farmer E-Sig: Report: CT LUMBAR SPINE W/O CONT [...] chronic. Correlate clinically. READING PHYSICIAN: Mir Nuñez -[id number] 10/12/2023 10:03 [facility] [employer] Teleradiology Program [phone] (For Medical Practitioner Use Only) Attention Patients / Veterans: If you have questions or concerns about these test results, please contact your ordering provider or primary care team. Primary Diagnostic Code: SIGNIFICANT ABNORMALITY, ATTN NEEDED Primary Interpreting Staff: RADIOLOGY,OUTSIDE SERVICE, Staff Physician / [facility] Encounter Notes: All associated encounter notes This section contains the clinical notes associated to the Encounter. Date/Time Encounter Note(s) Provider Source Nov 07, 2023 10:27 AM NONVA NOTE: LOCAL TITLE: [facility] CARE COORD PLAN STANDARD TITLE: NONVA NOTE DATE OF NOTE: NOV 07, 2023@10:27 ENTRY DATE: NOV 07, 2023@10:27:30 AUTHOR: NNAMDI SADLER COSIGNER: URGENCY: STATUS: COMPLETED Emergency Notification Intake Date Presenting to the Facility: Oct Method of Contact: Notified from [employer] worklist Notification ID: [id number] [facility] Referral #: [id number] [facility] Name: Hospital: [facility] Address: City: [place] State: [place] Zip Code: Phone : [facility] Facility Point of Contact: Name: Bonny Phone: Chief complaint: E11.628 Primary Diagnosis: Disposition Admitted Route of Admission: ER Date of Admission: Oct Admitting Diagnosis: E11.628 Community Care Provider: Confirm Level of Care: /es/ NNAMDI SADLER AMSA Signed: 11/07/2023 10:29 Receipt Acknowledged By: 11/07/2023 12:58 /es/ TODD DANIELS, RN REGISTERED NURSE 11/07/2023 16:07 /es/ LENORA DEJESUS MD PHYSICIAN 12/28/2023 16:18 /es/ Dulce Maria CHU,RN,[facility] TRANSFER/TRAVELING COORDINATOR 01/04/2024 10:14 /es/ BRADFORD MORENO Registered Nurse Biological Inspector NNAMDI SADLER [place]
--- OUTSIDE RECORDS SUMMARY | 2024-08-07 12:19 | XMS_ITS ---
Author Name Department of [facility] [place] Organization [facility] [place] Address [address] [place] [address] Care Team Providers Care Child Day Care Teacher Name Role Phone LENORA ROJO Primary Care [...] Jul 31, 2014 MEDICAR E SUPPLEM E [id number] [phone] FR GAMALIEL KAY PATIENT [facility] MEDICARE SUPPLEMEN [place]ANGEL[place] MEDIC ARE SUPP Jul 31, 2014 SUPP [id number] [phone] FR GAMALIEL KAY PATIENT MEDICARE (WNR) MEDICARE (M) PART A Jan 29, 2004 PART A [id number] [phone] FR GAMALIEL KYA PATIENT MEDICARE (WNR) MEDICARE (M) PART B Jan 29, 2004 PART B [id number] [phone] FR GAMALIEL KAY PATIENT [facility] (WNR) MEDICARE ADVANTAGE [facility] ([facility] Jul 31, 2023 [id number] GAMALIEL MACHADO PATIENT [facility] (WNR) MEDICARE ADVANTAGE MCR (WNR) Jul 31, 2023 [id number] [phone] FR GAMALIEL KAY PATIENT Selected Encounter This section includes the information on record at [place] for the Encounter. Date/Time Encounter Type Encounter Description Reason Pro vider Source December 07, 2023 11:27 AM Outpatient Encounter PRIMARY CARE/MEDICINE IHE Encounter Template Text not used by ID Plan of Treatment: Future Appointments (+ 6 months) and Future Tests (+/- 45 days) The Plan of Treatment section includes future care activities for the patient from all [place] [facility]. This section includes future appointments and future orders which are active, pending or scheduled. Future Appointments This section includes appointments that were scheduled to occur 6 months from the date of the Encounter, up to a maximum of 20 appointments. The data comes from all [facility]. Appointment Date/Time Appointment Type Appointme nt Facility Name December 11, 2023 10:30 AM AMBULATORY - MEDICINE [facility] [place] [facility] December 20, 2023 09:00 AM AMBULATORY MEDICINE [facility] [place] [facility] December 20, 2023 02:00 PM AMBULATORY - MEDICINE [facility] ([facility]) Jan 08, 2024 10:30 AM AMBULATORY MEDICINE [facility] [place] [facility] Jan 11, 2024 01:00 PM AMBULATORY MEDICINE [facility] [place] [facility] Jan 30, 2024 01:00 PM AMBULATORY - MEDICINE [facility] [place] [facility] Mar 27, 2024 01:00 PM AMBULATORY - MEDICINE [facility] ([facility]) Apr 04, 2024 08:00 AM AMBULATORY - MEDICINE [facility] [place] [facility] May 15, 2024 02:00 PM AMBULATORY - MEDICINE [facility] ([facility]) Active, Pending, and Scheduled Orders This section includes a listing of several types of active, pending, and scheduled orders, including clinic medications orders, diagnostic test orders, procedure orders and consult orders; where the start date of the order is 45 days before the date of the Encounter or 45 days after the date of theEncounter. The data comes from all [facility]. Test Date/Time Test Type Test Details Facility Name 2023 01:37 PM Consult Order COMMUNITY CARE-NEUROLOGY Cons Wood Model Maker's Choice [place] [facility] Encounter Notes: All associated encounter notes This section contains the clinical notes associated to the Encounter. Date/Time Encounter Note(s) Provider Source December 07, 2023 11:41 AM ADDENDUM: LOCAL TITLE: Addendum STANDARD TITLE: ADDENDUM DATE OF NOTE: DECEMBER 07, 2023@11:41:08 ENTRY DATE: DECEMBER 07, 2023@11:41:09 AUTHOR: TODD DANIELS EXP COSIGNER: URGENCY: STATUS: COMPLETED Consults for wound care, VNA and vascular surgery entered and held for PCP review and signature. Adding AMSA to assist with scheduling post-hospital f/u visit. /es/ TODD DANIELS RN REGISTERED NURSE Signed: 12/07/2023 11:41 Receipt Acknowledged By: 12/07/2023 12:50 /es/ LENORA ROJO MD PHYSICIAN 12/07/2023 12:05 /es/ PRINCE JAIN ADVANCED NAUMKEAG OPERATOR === --- Original Document --- 12/07/23 NON-VA HOSPITALIZATIONS/ER: This note is entered for the sole purpose of scanning Non-VA documentation into [employer]. [facility] Date of Admission: 12/03/2023 Date of Discharge: 12/06/2023 Author: Freddy Tripathi MD Discharge Diagnosis Sepsis (A41.9) Diabetic infection of left foot (E11.628) Parkinson disease (G20.A1) Atrial fibrillation (I48.91) Discharge Medications alogliptin (alogliptin 25 mg oral tablet) 1 tab(s) 25 Milligram By Mouth Daily apixaban (Eliquis 5 mg oral tablet) 1 tab(s) 5 Milligram By Mouth 2 times a day Carbidopa-Levodopa (carbidopa-levodopa 25 mg-100 mg oral tablet) 2 tab(s) By Mouth 3 times a day Furosemide (Lasix 20 mg oral tablet) 20 Milligram 1 tablet By Mouth Daily in the afternoon Linezolid (linezolid 600 mg oral tablet) 1 tab(s) 600 Milligram By Mouth Every 12 hours for 4 Days Metoprolol (metoprolol 50 mg oral tablet) 50 Milligram 1 tablet By Mouth 2 times a day Miscellaneous Rx (Misc Rx) Vitamin D/ Vitamin C/ Magnesium 1 tab Oral Daily Medications Started Linezolid (linezolid 600 mg oral tablet) 1 tab(s) 600 Milligram By Mouth Every 12 hours for 4 Days Hospital Course Patient is a 83-year-old male with a history of Parkinson disease, cardiac pacemaker, atrial fibrillation, type 2 diabetes, hypertension, vascular history significant for left second toe amputation with chronic left diabetic foot ulcer who presented with worsening left foot pain, swelling and drainage. Sepsis (A41.9): Swelling and drainage improved Sepsis criteria on admission with leukocytosis, tachycardia and source of infection low left foot with lactic acidosis. Proceeded with CT of his lower extremity to rule out abscess. Unable to tolerate MRI here at [facility] due to his pacemaker. CT of his lower extremity which does not demonstrate any evidence of osteo or any deep down infection. Blood cultures showed NGTD 48 hours Likely soft tissue infection Discussed with ID, at discharge will do oral Linezolid 600 mg p.o. twice daily at discharge, total 7 days total antibiotics After discharge he needs vascular surgery evaluation for optimizing blood flow to lower extremities to help with healing. Wound care: left foot dry sterile dressing daily Follow up within about 2 weeks with structural worker/PCP Diabetic infection of left foot (E11.628): -as stated above Parkinson disease (G20.A1): Continue with carbidopa levodopa 3 times a day. Atrial fibrillation (I48.91): Stable. History of pacemaker placement. Continue with metoprolol 50 mg twice daily with apixaban. Follow-Up Appointments Added Follow Up Time Frame Comments Lenora Rojo MD 1 week: call to discuss follow up visit Please see your primary care physician for management of your chronic medical conditions and for refill of your medications Patient Instructions You were admitted due to left foot infection. You can be discharged today on oral antibiotics. You refused to go to rehab so we will send visiting nurse and therapist to help you at home. Follow up with your primary care physician. You also need vascular surgery evaluation for optimizing blood flow to lower extremities. If your symptoms worsen or you develop worsening wound, pain, redness, drainage, chest pain, shortness of breath, severe cough, fevers, chills, abdominal pain, nausea/vomiting, or any severe symptoms you can come back to the emergency department. Post Discharge Care Diet: Cardiac diet Wound Care: Wound Site: left foot dry sterile dressing Daily Yes Condition: Fair /es/ TODD DANIELS RN REGISTERED NURSE Signed: 12/07/2023 11:41 TODD DANIELS ([facility]) December 07, 2023 11:27 AM NONVA NOTE: LOCAL TITLE: NON-VA HOSPITALIZATIONS/ER STANDARD TITLE: NONVA NOTE DATE OF NOTE: DECEMBER 07, 2023@11:27 ENTRY DATE: DECEMBER 07, 2023@11:28:02 AUTHOR: TODD DANIELS EXP COSIGNER: URGENCY: STATUS: COMPLETED NON-VA HOSPITALIZATIONS/ER Has ADDENDA This note is entered for the sole purpose of scanning Non-VA documentation into [employer]. [facility] Date of Admission: 12/03/2023 Date of Discharge: 12/06/2023 Author: Freddy Tripathi MD Discharge Diagnosis Sepsis (A41.9) Diabetic infection of left foot (E11.628) Parkinson disease (G20.A1) Atrial fibrillation (I48.91) Discharge Medications alogliptin (alogliptin 25 mg oral tablet) 1 tab(s) 25 Milligram By Mouth Daily apixaban (Eliquis 5 mg oral tablet) 1 tab(s) 5 Milligram By Mouth 2 times a day Carbidopa-Levodopa (carbidopa-levodopa 25 mg-100 mg oral tablet) 2 tab(s) By Mouth 3 times a day Furosemide (Lasix 20 mg oral tablet) 20 Milligram 1 tablet By Mouth Daily in the afternoon Linezolid (linezolid 600 mg oral tablet) 1 tab(s) 600 Milligram By Mouth Every 12 hours for 4 Days Metoprolol (metoprolol 50 mg oral tablet) 50 Milligram 1 tablet By Mouth 2 times a day Miscellaneous Rx (Misc Rx) Vitamin D/ Vitamin C/ Magnesium 1 tab Oral Daily Medications Started Linezolid (linezolid 600 mg oral tablet) 1 tab(s) 600 Milligram By Mouth Every 12 hours for 4 Days Hospital Course Patient is a 83-year-old male with a history of Parkinson disease, cardiac pacemaker, atrial fibrillation, type 2 diabetes, hypertension, vascular history significant for left second toe amputation with chronic left diabetic foot ulcer who presented with worsening left foot pain, swelling and drainage. Sepsis (A41.9): Swelling and drainage improved Sepsis criteria on admission with leukocytosis, tachycardia and source of infection low left foot with lactic acidosis. Proceeded with CT of his lower extremity to rule out abscess. Unable to tolerate MRI here at [facility] due to his pacemaker. CT of his lower extremity which does not demonstrate any evidence of osteo or any deep down infection. Blood cultures showed NGTD 48 hours Likely soft tissue infection Discussed with ID, at discharge will do oral Linezolid 600 mg p.o. twice daily at discharge, total 7 days total antibiotics After discharge he needs vascular surgery evaluation for optimizing blood flow to lower extremities to help with healing. Wound care: left foot dry sterile dressing daily Follow up within about 2 weeks with structural worker/PCP Diabetic infection of left foot (E11.628): -as stated above Parkinson disease (G20.A1): Continue with carbidopa levodopa 3 times a day. Atrial fibrillation (I48.91): Stable. History of pacemaker placement. Continue with metoprolol 50 mg twice daily with apixaban. Follow-Up Appointments Added Follow Up Time Frame Comments Alia REEDER, Lenora Hicks 1 week: call to discuss follow up visit Please see your primary care physician for management of your chronic medical conditions and for refill of your medications Patient Instructions You were admitted due to left foot infection. You can be discharged today on oral antibiotics. You refused to go to rehab so we will send visiting nurse and therapist to help you at home. Follow up with your primary care physician. You also need vascular surgery evaluation for optimizing blood flow to lower extremities. If your symptoms worsen or you develop worsening wound, pain, redness, drainage, chest pain, shortness of breath, severe cough, fevers, chills, abdominal pain, nausea/vomiting, or any severe symptoms you can come back to the emergency department. Post Discharge Care Diet: Cardiac diet Wound Care: Wound Site: left foot dry sterile dressing Daily Yes Condition: Fair /kasia/ TODD DANIELS RN REGISTERED NURSE Signed: 12/07/2023 11:41 12/07/2023 ADDENDUM STATUS: COMPLETED Consults for wound care, VNA and vascular surgery entered and held for PCP review and signature. Adding AMSA to assist with scheduling post-hospital f/u visit. /kasia/ TODD DANIELS RN REGISTERED NURSE Signed: 12/07/2023 11:41 Receipt Acknowledged By: * AWAITING SIGNATURE * LENORA ROJO * AWAITING SIGNATURE * PRINCE JAIN KATIE L [place] ([facility])
--- OUTSIDE RECORDS SUMMARY | 2024-08-07 12:19 | XMS_ITS ---
Author Name [facility] [place] Organization [place] Address [address] [place] [address] Care Team Providers Care Water Project Manager Name Role Phone LENORA DEJESUS Primary [...] Jul 31, 2014 MEDICAR E SUPPLEM E [id number] [phone] FR GAMALIEL KAY PATIENT [facility] MEDICARE SUPPLEMEN [place] MEDIC ARE SUPP Jul 31, 2014 SUPP [id number] [phone] FR GAMALIEL KAY PATIENT MEDICARE (WNR) MEDICARE (M) PART A Jan 29, 2004 PART A [id number] [phone] FR GAMALIEL KAY PATIENT MEDICARE (WNR) MEDICARE (M) PART B Jan 29, 2004 PART B [id number] [phone] FR GAMALIEL KAY PATIENT [facility] (WNR) MEDICARE ADVANTAGE [facility] ([facility]) Jul 31, 2023 [id number] GAMALIEL MACHADO PATIENT [facility] MCR (WNR) MEDICARE ADVANTAGE MCR (WNR) Jul 31, 2023 [id number] [phone] FR GAMALIEL KAY PATIENT Selected Encounter This section includes the information on record at [place] for the Encounter. Date/Time Encounter Type Encounter Description Reason Pro vider Source Nov 20, 2023 03:28 PM Outpatient Encounter TELEPHONE PRIMARY CARE IHE Encounter Template Text not used by [place] Plan of Treatment: Future Appointments (+ 6 months) and Future Tests (+/- 45 days) The Plan of Treatment section includes future care activities for the patient from all [place] [facility]. This section includes future appointments and future orders which are active, pending or scheduled. Future Appointments This section includes appointments that were scheduled to occur 6 months from the date of the Encounter, up to a maximum of 20 appointments. The data comes from all [facility]. Appointment Date/Time Appointment Type Appointme nt Facility Name December 11, 2023 10:30 AM AMBULATORY - MEDICINE [facility] [place] [place] [facility] December 20, 2023 09:00 AM AMBULATORY MEDICINE [facility] [place] [facility] December 20, 2023 02:00 PM AMBULATORY - MEDICINE [facility]) Jan 08, 2024 10:30 AM AMBULATORY MEDICINE [facility] [place] [facility] Jan 11, 2024 01:00 PM AMBULATORY MEDICINE [facility] [place] [facility] Jan 30, 2024 01:00 PM AMBULATORY - MEDICINE [facility] [place] [facility] Mar 27, 2024 01:00 PM AMBULATORY - MEDICINE [facility] ([facility]) Apr 04, 2024 08:00 AM AMBULATORY MEDICINE [facility] [place] [facility] May 15, 2024 02:00 PM AMBULATORY - MEDICINE [facility] ([facility]) Active, Pending, and Scheduled Orders This section includes a listing of several types of active, pending, and scheduled orders, including clinic medications orders, diagnostic test orders, procedure orders and consult orders; where the start date of the order is 45 days before the date of the Encounter or 45 days after the date of theEncounter. The data comes from all [facility]. Test Date/Time Test Type Test Details Facility Name 2023 01:37 PM Consult Order COMMUNITY CARE-NEUROLOGY Cons Hvac Sheet Metal Installer's Choice [facility] Encounter Notes: All associated encounter notes This section contains the clinical notes associated to the Encounter. Date/Time Encounter Note(s) Provider Source Nov 20, 2023 03:28 PM TELEPHONE ENCOUNTE R NOTE: LOCAL TITLE: TELEPHONE NOTE/SPECIALTY CLINIC STANDARD TITLE: TELEPHONE ENCOUNTER NOTE DATE OF NOTE: NOV 20, 2023@15:28 ENTRY DATE: NOV 20, 2023@15:28:42 AUTHOR: IVETTE BEAR EXP COSIGNER: URGENCY: STATUS: COMPLETED Called and left message on [employer]. Patients appointment with diabetes edu on 11/21/2023 Needs to be rescheduled with a PID of 10/11/2023 Letter mailed [phone] Ext: [phone] /kasia/ IVETTE BEAR ADVANCED DUST COLLECTOR ORE CRUSHING Signed: 11/20/2023 15:29 [facility] BEAR [facility]
--- OUTSIDE RECORDS SUMMARY | 2024-08-07 12:19 | XMS_ITS | Encounter Summary ---
Author Name [place] Address [address] [place] [address] Care Team Providers Care Board Machine Set Up Operator Name Role Phone LENORA DEJESUS Primary [...] Jul 31, 2014 MEDICAR E SUPPLEM E [id number] [phone] FR GAMALIEL KAY PATIENT [facility] MEDICARE SUPPLEMEN [place]ANGELIST[place] MEDIC ARE SUPP Jul 31, 2014 SUPP [id number] [phone] FR GAMALIEL KAY PATIENT MEDICARE (WNR) MEDICARE (M) PART A Jan 29, 2004 PART A [id number] [phone] FR GAMALIEL KAY PATIENT MEDICARE (WNR) MEDICARE (M) PART B Jan 29, 2004 PART B [id number] [phone] FR GAMALIEL KAY PATIENT [facility] (WNR) MEDICARE ADVANTAGE [facility] Jul 31, 2023 [id number] [phone] FR GAMALIEL KAY PATIENT [facility] (WNR) MEDICARE ADVANTAGE [facility]CR (WNR) Jul 31, 2023 [id number] [phone] FR GAMALIEL KAY PATIENT Selected Encounter This section includes the information on record at [place] for the Encounter. Date/Time Encounter Type Encounter Description Reason Pro vider Source December 07, 2023 11:10 AM Outpatient Encounter ADMIN PAT ACTIVTIES (MASNONCT) IHE Encounter Template Text not used by [place] Plan of Treatment: Future Appointments (+ 6 months) and Future Tests (+/- 45 days) The Plan of Treatment section includes future care activities for the patient from all [place] [facility]. This section includes future appointments and future orders which are active, pending or scheduled. Future Appointments This section includes appointments that were scheduled to occur 6 months from the date of the Encounter, up to a maximum of 20 appointments. The data comes from all [facility] facilities. Appointment Date/Time Appointment Type Appointme nt Facility Name December 11, 2023 10:30 AM AMBULATORY - MEDICINE [facility] [place] [facility] December 20, 2023 09:00 AM AMBULATORY - MEDICINE [facility] [place] [facility] December 20, 2023 02:00 PM AMBULATORY - MEDICINE [facility] Jan 08, 2024 10:30 AM AMBULATORY - MEDICINE [facility] [place] [facility] Jan 11, 2024 01:00 PM AMBULATORY MEDICINE [facility] [place] [facility] Jan 30, 2024 01:00 PM AMBULATORY - MEDICINE [facility] [place] [facility] Mar 27, 2024 01:00 PM AMBULATORY - MEDICINE [facility] Apr 04, 2024 08:00 AM AMBULATORY - MEDICINE [facility] [place] [facility] May 15, 2024 02:00 PM AMBULATORY - MEDICINE [facility] Active, Pending, and Scheduled Orders This section [...] 01:37 PM Consult Order COMMUNITY CARE-NEUROLOGY Cons Health Information Systems Technician's Choice [facility] [place] [facility] Encounter Notes: All associated encounter notes This section contains the clinical notes associated to the Encounter. Date/Time Encounter Note(s) Provider Source December 07, 2023 11:21 AM ADDENDUM: LOCAL TITLE: Addendum STANDARD TITLE: ADDENDUM DATE OF NOTE: DECEMBER 07, 2023@11:21:14 ENTRY DATE: DECEMBER 07, 2023@11:21:15 AUTHOR: LENORA DEJESUS EXP COSIGNER: URGENCY: STATUS: COMPLETED will need wound clinic follow up and Nursing services/ home help. Please place consuts. Thank you /kasia/ LENORA DEJESUS MD PHYSICIAN Signed: 12/07/2023 11:24 Receipt Acknowledged By: 12/07/2023 12:24 /kasia/ TODD DANIELS RN REGISTERED NURSE === --- Original Document --- 12/07/23 CCC: SCHEDULING ADMINISTRATION: Patient Demographics Patient Name: MUKUL KAY Patient Primary Phone: [phone] Patient Primary Address: [address] [place] [address] Patient : 1940 Patient Age: 83 Call Back Number: [phone] Caller/Recipient Relation to Patient: Self Administrative Administrative Note Reason: Other Administrative Note Comments: [place] called today and would like a call back from the PACT. The patient feels as though maybe he should reschedule tomorrows visit with the PACT? Also, he needs a referral to the wound clinic and thinks that he should have home health or some sort of home nursing coming to the house to help with the wound on his foot. Please return the patient's call at: [phone] in order to discuss this in more detail with the patient at your earliest convenience. Thank you. /kasia/ RACHEL BABCOCK 1 [facility] AMS[facility] Signed: 12/07/2023 11:10 Receipt Acknowledged By: 12/07/2023 12:24 /es/ TODD DANIELS RN REGISTERED NURSE 12/07/2023 11:21 /es/ LENORA DEJESUS MD PHYSICIAN 12/07/2023 11:56 /es/ PRINCE JAIN ADVANCED MEDICAL TERRITORY MANAGER LENORA DEJESUS [place] [facility] [place] [facility] December 07, 2023 11:10 AM ADMINISTRATIVE NOTE: LOCAL TITLE: CCC: SCHEDULING ADMINISTRATION STANDARD TITLE: ADMINISTRATIVE NOTE DATE OF NOTE: DECEMBER 07, 2023@11:10:39 ENTRY DATE: DECEMBER 07, 2023@11:10:39 AUTHOR: RACHEL TELLEZ EXP COSIGNER: URGENCY: STATUS: COMPLETED CCC: SCHEDULING ADMINISTRATION Has ADDENDA Patient Demographics Patient Name: MUKUL KAY Patient Primary Phone: [phone] Patient Primary Address: [address] [place] [address] Patient : 1940 Patient Age: 83 Call Back Number: [phone] Caller/Recipient Relation to Patient: Self Administrative Administrative Note Reason: Other Administrative Note Comments: [place] called today and would like a call back from the PACT. The patient feels as though maybe he should reschedule tomorrows visit with the PACT? Also, he needs a referral to the wound clinic and thinks that he should have home health or some sort of home nursing coming to the house to help with the wound on his foot. Please return the patient's call at: [phone] in order to discuss this in more detail with the patient at your earliest convenience. Thank you. /es/ RACHEL BABCOCK 1 [facility] AMSA Signed: 12/07/2023 11:10 Receipt Acknowledged By: 12/07/2023 12:24 /es/ TODD DANIELS RN REGISTERED NURSE 12/07/2023 11:21 /es/ LENORA DEJESUS MD PHYSICIAN 12/07/2023 11:56 /es/ PRINCE JAIN ADVANCED MEDICAL TERRITORY MANAGER 12/07/2023 ADDENDUM STATUS: COMPLETED [place] will need wound clinic follow up and Nursing services/ home help. Please place consuts. Thank you /kasia/ LENORA DEJESUS MD PHYSICIAN Signed: 12/07/2023 11:24 Receipt Acknowledged By: 12/07/2023 12:24 /kasia/ TODD DANIELS, RN REGISTERED NURSE RACHEL TELLEZ [facility]
--- OUTSIDE RECORDS SUMMARY | 2024-08-07 12:19 | XMS_ITS ---
Author Name [place] Address [address] [place] [address] Care Team Providers Care Manager Pacu Name Role Phone LENORA DEJESUS Primary Care [...] Jul 31, 2014 MEDICAR E SUPPLEM E [id number] [phone] FR GAMALIEL KAY PATIENT [facility] MEDICARE SUPPLEMEN EVANGELISTA MEDIC ARE SUPP Jul 31, 2014 SUPP [id number] [phone] FR GAMALIEL KAY PATIENT MEDICARE (WNR) MEDICARE (M) PART A Jan 29, 2004 PART A [id number] [phone] FR GAMALIEL KAY PATIENT MEDICARE (WNR) MEDICARE (M) PART B Jan 29, 2004 PART B [id number] [phone] FR GAMALIEL KAY PATIENT [facility] (WNR) MEDICARE ADVANTAGE [facility] ([facility]) Jul 31, 2023 [id number] GAMALIEL MACHADO PATIENT [facility] MCR (WNR) MEDICARE ADVANTAGE MCR (WNR) Jul 31, 2023 [id number] [phone] FR GAMALIEL KAY PATIENT Selected Encounter This section includes the information on record at [place] for the Encounter. Date/Time Encounter Type Encounter Description Reason Pro vider Source November 29, 2023 12:00 AM Outpatient Encounter EVENT (HISTORICAL) IHE Encounter Template Text not used by [place] Plan of Treatment: Future Appointments (+ 6 months) and Future Tests (+/- 45 days) The Plan of Treatment section includes future care activities for the patient from all [place] [facility]. This section includes future appointments and future orders which are active, pending or scheduled. Future Appointments This section includes appointments that were scheduled to occur 6 months from the date of the Encounter, up to a maximum of 20 appointments. The data comes from all [facility]. Appointment Date/Time Appointment Type Appointme nt Facility Name December 11, 2023 10:30 AM AMBULATORY - MEDICINE [facility] [place] [facility] December 20, 2023 09:00 AM AMBULATORY - MEDICINE [facility] [place] [facility] December 20, 2023 02:00 PM AMBULATORY - MEDICINE [facility] Jan 08, 2024 10:30 AM AMBULATORY MEDICINE [facility] [place] [facility] Jan 11, 2024 01:00 PM AMBULATORY MEDICINE [facility] [place] [facility] Jan 30, 2024 01:00 PM AMBULATORY - MEDICINE [facility] [place] [facility] Mar 27, 2024 01:00 PM AMBULATORY - MEDICINE [facility] ([facility] Apr 04, 2024 08:00 AM AMBULATORY - MEDICINE [facility] [place] [facility] May 15, 2024 02:00 PM AMBULATORY - MEDICINE [facility] ([facility]) Active, Pending, and Scheduled Orders This section includes a listing of several types of active, pending, and scheduled orders, including clinic medications orders, diagnostic test orders, procedure orders and consult orders; where the start date of the order is 45 days before the date of the Encounter or 45 days after the date of theEncounter. The data comes from all [facility]. Test Date/Time Test Type Test Details Facility Name 2023 01:37 PM Consult Order COMMUNITY CARE-NEUROLOGY Cons Library Director's Choice [facility] Encounter Notes: All associated encounter notes This section contains the clinical notes associated to the Encounter. Date/Time Encounter Note(s) Provider Source November 29, 2023 12:00 AM NONVA NOTE: LOCAL TITLE: NON-NH CARE INPATIENT REHAB/SNF STANDARD TITLE: NONVA NOTE DATE OF NOTE: NOVEMBER 29, 2023 ENTRY DATE: DECEMBER 05, 2023@10:59:49 AUTHOR: THANH MARCELO EXP COSIGNER: URGENCY: STATUS: COMPLETED VistA Imaging - Scanned Document SCANNED DOCUMENT SIGNATURE NOT REQUIRED Electronically Filed: 12/05/2023 by: THANH CARTER [facility]
--- OUTSIDE RECORDS SUMMARY | 2024-08-07 12:19 | XMS_ITS | Encounter Summary ---
Author Name [place] Address [address] [place] [address] Care Team Providers Care Dean For Student Affairs Name Role Phone LENORA DEJESUS Primary Care [...] Jul 31, 2014 MEDICAR E SUPPLEM E [id number] [phone] FR GAMALIEL KAY PATIENT [facility] MEDICARE SUPPLEMEN EVANGELISTA MEDIC ARE SUPP Jul 31, 2014 SUPP [id number] [phone] FR GAMALIEL KAY PATIENT MEDICARE (WNR) MEDICARE (M) PART A Jan 29, 2004 PART A [id number] [phone] FR GAMALIEL KAY PATIENT MEDICARE (WNR) MEDICARE (M) PART B Jan 29, 2004 PART B [id number] [phone] FR GAMALIEL KAY PATIENT [facility] (WNR) MEDICARE ADVANTAGE [facility] ([facility]) Jul 31, 2023 [id number] [phone] FR GAMALIEL KAY PATIENT [facility] (WNR) MEDICARE ADVANTAGE MCR (WNR) Jul 31, 2023 [id number] [phone] FR GAMALIEL KAY PATIENT Selected Encounter This section includes the information on record at [place] for the Encounter. Date/Time Encounter Type Encounter Description Reason Pro vider Source November 30, 2023 04:24 PM Outpatient Encounter ADMIN PAT ACTIVTIES (MASNONCT) IHE Encounter Template Text not used by [place] Plan of Treatment: Future Appointments (+ 6 months) and Future Tests (+/- 45 days) The Plan of Treatment section includes future care activities for the patient from all [place] [facility]. This section includes future appointments and future orders which are active, pending or scheduled. Future Appointments This section includes appointments that were scheduled to occur 6 months from the date of the Encounter, up to a maximum of 20 appointments. The data comes from all [facility] facilities. Appointment Date/Time Appointment Type Appointme nt Facility Name December 11, 2023 10:30 AM AMBULATORY - MEDICINE [facility] [place] [place] [facility] December 20, 2023 09:00 AM AMBULATORY - MEDICINE [facility] [place] [facility] December 20, 2023 02:00 PM AMBULATORY - MEDICINE [facility] Jan 08, 2024 10:30 AM AMBULATORY - MEDICINE [facility] [place] [facility] Jan 11, 2024 01:00 PM AMBULATORY MEDICINE [facility] [place] [facility] Jan 30, 2024 01:00 PM AMBULATORY - MEDICINE [facility] [place] [facility] Mar 27, 2024 01:00 PM AMBULATORY - MEDICINE [facility] Apr 04, 2024 08:00 AM AMBULATORY - MEDICINE [facility] [place] [facility] May 15, 2024 02:00 PM AMBULATORY - MEDICINE [facility] ([facility]) Active, Pending, and Scheduled Orders This section [...] 01:37 PM Consult Order COMMUNITY CARE-NEUROLOGY Cons Infection Control Practitioner's Choice [facility] Encounter Notes: All associated encounter notes This section contains the clinical notes associated to the Encounter. Date/Time Encounter Note(s) Provider Source November 30, 2023 04:24 PM ADMINISTRATIVE NOTE: LOCAL TITLE: CCC: SCHEDULING ADMINISTRATION STANDARD TITLE: ADMINISTRATIVE NOTE DATE OF NOTE: NOVEMBER 30, 2023@16:24:55 ENTRY DATE: NOVEMBER 30, 2023@16:24:55 AUTHOR: JEFF FRAGOSO COSIGNER: URGENCY: STATUS: COMPLETED CCC: SCHEDULING ADMINISTRATION Has ADDENDA Patient Demographics Patient Name: MUKUL KAY Patient Primary Phone: [phone] Patient Primary Address: [address] [place] [address] Patient : 1940 Patient Age: 83 Call Back Number: [phone] option 2 Caller/Recipient Relation to Patient: Other If Other Describe Relation to Patient: VNA Caller Name: Faustina Administrative Administrative Note Reason: Home Health / Alf Administrative Note Comments: FAMILIA Weems from [facility] is requesting a call back in regards to verbal orders for to receive PT and OT services, she can be reached at above # /kasia/ JEFF FRAGOSO VISN1 [facility] AMSA Signed: 11/30/2023 16:25 Receipt Acknowledged By: 12/01/2023 09:55 /es/ TODD DANIELS RN REGISTERED NURSE 12/01/2023 13:20 /kasia/ CHRISTOPHER COLLINS LPN LICENSED PRACTICAL NURSE 12/01/2023 ADDENDUM STATUS: COMPLETED Spoke with Central Intake staff at number provided, verbal orders for PT/OT given. /kasia/ TODD DANIELS RN REGISTERED NURSE Signed: 12/01/2023 09:55 JEFF FRAGOSO [facility]
--- OUTSIDE RECORDS SUMMARY | 2024-08-07 12:19 | XMS_ITS ---
Author Name [place] Address [address] [place] [address] Care Team Providers Care Director Of Solutions Architecture Name Role Phone LENORA DEJESUS Primary Care [...] Jul 31, 2014 MEDICAR E SUPPLEM E [id number] [phone] FR GAMALIEL KAY PATIENT [facility] MEDICARE SUPPLEMEN EVANGELISTA MEDIC ARE SUPP Jul 31, 2014 SUPP [id number] [phone] FR GAMALIEL KAY PATIENT MEDICARE (WNR) MEDICARE (M) PART A Jan 29, 2004 PART A [id number] [phone] FR GAMALIEL KAY PATIENT MEDICARE (WNR) MEDICARE (M) PART B Jan 29, 2004 PART B [id number] [phone] FR GAMALIEL KAY PATIENT [facility] (WNR) MEDICARE ADVANTAGE [facility] ([facility]) Jul 31, 2023 [id number] [phone] FR GAMALIEL KAY PATIENT [facility] MCR (WNR) MEDICARE ADVANTAGE [facility] (WNR) Jul 31, 2023 [id number] [phone] FR GAMALIEL KAY PATIENT Selected Encounter This section includes the information on record at [place] for the Encounter. Date/Time Encounter Type Encounter Description Reason Pro vider Source December 12, 2023 01:32 PM Outpatient Encounter TELEPHONE CASE MANAGEMENT IHE Encounter Template Text not used by [place] Plan of Treatment: Future Appointments (+ 6 months) and Future Tests (+/- 45 days) The Plan of Treatment section includes future care activities for the patient from all [place] treatmentfacilities. This section includes future appointments and future orders which are active, pending or scheduled. Future Appointments This section includes appointments that were scheduled to occur 6 months from the date of the Encounter, up to a maximum of 20 appointments. The data comes from all [place] treatment facilities. Appointment Date/Time Appointment Type Appointme nt Facility Name December 20, 2023 09:00 AM AMBULATORY - MEDICINE [facility] [place] [place] [facility] December 20, 2023 02:00 PM [facility] Jan 08, 2024 10:30 AM AMBULATORY - MEDICINE [facility] [place] [facility] Jan 11, 2024 01:00 PM AMBULATORY - MEDICINE [facility] [place] [place] [facility] Jan 30, 2024 01:00 PM AMBULATORY - MEDICINE [facility] [place] [facility] Mar 27, 2024 01:00 PM [facility] Apr 04, 2024 08:00 AM AMBULATORY - MEDICINE [place] [facility] [place] [facility] May 15, 2024 02:00 PM [facility] Jun 12, 2024 11:00 AM [facility] Encounter Notes: All associated encounter notes This section contains the clinical notes associated to the Encounter. Date/Time Encounter Note(s) Provider Source December 12, 2023 01:32 PM TRANSFER SUMMARIZA TION NOTE: LOCAL TITLE: VEHICLE CONTROLS ENGINEER/OCC/HOSPITAL NOTIFICATION NOTE STANDARD TITLE: TRANSFER SUMMARIZATION NOTE DATE OF NOTE: DECEMBER 12, 2023@13:32 ENTRY DATE: DECEMBER 12, 2023@13:32:38 AUTHOR: DULCE MARIA JOHNSON EXP COSIGNER: URGENCY: STATUS: COMPLETED SUBJECT: EOC 12/02 Per [facility], discharged home with [facility]NA on 12/06/23. /kasia/ Dulce Maria Johnson MSN,RN,[facility] TRANSFER/TRAVELING COORDINATOR Signed: 12/12/2023 13:33 DULCE MARIA JOHNSON [facility]
--- OUTSIDE RECORDS SUMMARY | 2024-08-07 12:19 | XMS_ITS ---
Author Name [place] Address [address] [place] [address] Care Team Providers Care Forest Economist Name Role Phone LENORA DEJESUS Primary Care [...] Jul 31, 2014 MEDICAR E SUPPLEM E [id number] FR GAMALIEL KAY PATIENT [facility] MEDICARE SUPPLEMEN EVANGELISTA MEDIC ARE SUPP Jul 31, 2014 SUPP [id number] [phone] FR GAMALIEL KAY PATIENT MEDICARE (WNR) MEDICARE (M) PART A Jan 29, 2004 PART A [id number] [phone] FR GAMALIEL KAY PATIENT MEDICARE (WNR) MEDICARE (M) PART B Jan 29, 2004 PART B [id number] [phone] FR GAMALIEL KAY PATIENT [facility] (WNR) MEDICARE ADVANTAGE [facility]) Jul 31, 2023 [id number] [phone] FR GAMALIEL KAY PATIENT [facility] MCR (WNR) MEDICARE ADVANTAGE MCR (WNR) Jul 31, 2023 [id number] [phone] FR GAMALIEL KAY PATIENT Selected Encounter This section includes the information on record at [place] for the Encounter. Date/Time Encounter Type Encounter Description Reason Pro vider Source Nov 17, 2023 08:52 AM Outpatient Encounter PAIN CLINIC IHE Encounter Template Text not used by [place] Plan of Treatment: Future Appointments (+ 6 months) and Future Tests (+/- 45 days) The Plan of Treatment section includes future care activities for the patient from all [place] [facility]. This section includes future appointments and future orders which are active, pending or scheduled. Future Appointments This section includes appointments that were scheduled to occur 6 months from the date of the Encounter, up to a maximum of 20 appointments. The data comes from all [facility]. Appointment Date/Time Appointment Type Appointme nt Facility Name December 11, 2023 10:30 AM AMBULATORY - MEDICINE [facility] [place] [facility] December 20, 2023 09:00 AM AMBULATORY MEDICINE [facility] [place] [facility] December 20, 2023 02:00 PM AMBULATORY - MEDICINE [facility] ([facility]) Jan 08, 2024 10:30 AM AMBULATORY - MEDICINE [facility] [place] [facility] Jan 11, 2024 01:00 PM AMBULATORY MEDICINE [facility] [place] [facility] Jan 30, 2024 01:00 PM AMBULATORY - MEDICINE [place] [facility] Mar 27, 2024 01:00 PM AMBULATORY - MEDICINE [facility] ([facility]) Apr 04, 2024 08:00 AM AMBULATORY MEDICINE [facility] [place] [facility] May 15, 2024 02:00 PM AMBULATORY - MEDICINE [facility] ([facility]) Active, Pending, and Scheduled Orders This section includes a listing of several types of active, pending, and scheduled orders, including clinic medications orders, diagnostic test orders, procedure orders and consult orders; where the start date of the order is 45 days before the date of the Encounter or 45 days after the date of theEncounter. The data comes from all [facility]. Test Date/Time Test Type Test Details Facility Name 2023 01:37 PM Consult Order COMMUNITY CARE-NEUROLOGY Cons Correspondent's Choice [facility] Encounter Notes: All associated encounter notes This section contains the clinical notes associated to the Encounter. Date/Time Encounter Note(s) Provider Source Nov 17, 2023 08:52 AM TELEPHONE ENCOUNTE R NOTE: LOCAL TITLE: TELEPHONE NOTE/SPECIALTY CLINIC STANDARD TITLE: TELEPHONE ENCOUNTER NOTE DATE OF NOTE: NOV 17, 2023@08:52 ENTRY DATE: NOV 17, 2023@08:52:49 AUTHOR: ILIR LAY EXP COSIGNER: URGENCY: STATUS: COMPLETED TELEPHONE NOTE/SPECIALTY CLINIC Has ADDENDA Call attempt was made to remind vet that they have a FTF appt with the Pain clinic on 11/20/2023 1445. No answer, lvm. Location was confirmed. /kasia/ ILIR LAY ADVANCED AUTOMATIC CLIPPER Signed: 11/17/2023 08:53 11/18/2023 ADDENDUM STATUS: COMPLETED pt return the call stated that he is in rehab right now and he will not be able to attend the appt on 11/20/23. /kasia/ SHARI CARTER Signed: 11/18/2023 12:26 ILIR LAY [facility]
--- OUTSIDE RECORDS SUMMARY | 2024-08-07 12:19 | XMS_ITS | Encounter Summary ---
Author Name [place] Address [address] [place] [address] Care Team Providers Care Social Media Sr Strategy Manager Name Role Phone LENORA DEJESUS Primary [...] Jul 31, 2014 MEDICAR E SUPPLEM E [id number] FR GAMALIEL KAY PATIENT [facility] MEDICARE SUPPLEMEN EVANGELISTA MEDIC ARE SUPP Jul 31, 2014 SUPP [id number] [phone] FR GAMALIEL KAY PATIENT MEDICARE (WNR) MEDICARE (M) PART A Jan 29, 2004 PART A [id number] [phone] FR GAMALIEL KAY PATIENT MEDICARE (WNR) MEDICARE (M) PART B Jan 29, 2004 PART B [id number] [phone] FR GAMALIEL KAY PATIENT [facility] (WNR) MEDICARE ADVANTAGE [facility] ([facility]) Jul 31, 2023 [id number] [phone] FR GAMALIEL KAY PATIENT [facility] (WNR) MEDICARE ADVANTAGE MCR (WNR) Jul 31, 2023 [id number] [phone] FR GAMALIEL KAY PATIENT Selected Encounter This section includes the information on record at [place] for the Encounter. Date/Time Encounter Type Encounter Description Reason Pro vider Source Nov 28, 2023 10:40 AM Outpatient Encounter ADMIN PAT ACTIVTIES (MASNONCT) IHE Encounter Template Text not used by [place] Plan of Treatment: Future Appointments (+ 6 months) and Future Tests (+/- 45 days) The Plan of Treatment section includes future care activities for the patient from all [place] [facility]. This section includes future appointments and future orders which are active, pending or scheduled. Future Appointments This section includes appointments that were scheduled to occur 6 months from the date of the Encounter, up to a maximum of 20 appointments. The data comes from all [facility] facilities. Appointment Date/Time Appointment Type Appointme nt Facility Name December 11, 2023 10:30 AM AMBULATORY - [facility]ICINE [facility] [place] [facility] December 20, 2023 09:00 AM AMBULATORY - MEDICINE [facility] [place] [facility] December 20, 2023 02:00 PM AMBULATORY - MEDICINE [facility] Jan 08, 2024 10:30 AM AMBULATORY - MEDICINE [facility] [place] [place] [facility] Jan 11, 2024 01:00 PM AMBULATORY MEDICINE [facility] [place] [facility] Jan 30, 2024 01:00 PM AMBULATORY - MEDICINE [facility] [place] [facility] Mar 27, 2024 01:00 PM AMBULATORY - MEDICINE [facility]) Apr 04, 2024 08:00 AM AMBULATORY - MEDICINE [facility] [place] [place] [facility] May 15, 2024 02:00 PM AMBULATORY - MEDICINE [facility]) Active, Pending, and Scheduled Orders This [...] PM Consult Order COMMUNITY CARE-NEUROLOGY Cons Health Science Writer's Choice [place] [facility] Encounter Notes: All associated encounter notes This section contains the clinical notes associated to the Encounter. Date/Time Encounter Note(s) Provider Source Nov 28, 2023 10:57 AM ADDENDUM: LOCAL TITLE: Addendum STANDARD TITLE: ADDENDUM DATE OF NOTE: NOV 28, 2023@10:57:44 ENTRY DATE: NOV 28, 2023@10:57:44 AUTHOR: TODD DANIELS COSIGNER: URGENCY: STATUS: COMPLETED Adding AMSA to assist with scheduling appt. /kasia/ TODD DANIELS RN REGISTERED NURSE Signed: 11/28/2023 10:58 Receipt Acknowledged By: 11/29/2023 16:04 /kasia/ PRINCE JAIN ADVANCED ELECTRICAL CONTROLS ASSEMBLER === --- Original Document --- 11/28/23 CCC: SCHEDULING ADMINISTRATION: Patient Demographics Patient Name: MUKUL KAY Patient Primary Phone: [phone] Patient Primary Address: [address] [place] [address] Patient : 1940 Patient Age: 83 Caller/Recipient Relation to Patient: Self Administrative Administrative Note Reason: Home Health / Fdc Administrative Note Comments: [facility], p: [phone]; being d/c'd from on 12/01/23 and needs a d/c f/u appt. please call to assist. Notes Notes & Information: [facility]: [phone]; being d/c'd from on 12/01/23 and needs a d/c f/u appt. please call to assist. /es/ FRANCY STERN AMSA Signed: 11/28/2023 10:41 Receipt Acknowledged By: 11/28/2023 10:58 /kasia/ TODD DANIELS RN REGISTERED NURSE 11/28/2023 11:47 /daphney COLLINS LPN LICENSED PRACTICAL NURSE TODD DANIELS [facility] Nov 28, 2023 10:40 AM ADMINISTRATIVE NOTE: LOCAL TITLE: CCC: SCHEDULING ADMINISTRATION STANDARD TITLE: ADMINISTRATIVE NOTE DATE OF NOTE: NOV 28, 2023@10:40:50 ENTRY DATE: NOV 28, 2023@10:40:50 AUTHOR: FRANCY STERN [place] COSIGNER: URGENCY: STATUS: COMPLETED CCC: SCHEDULING ADMINISTRATION Has ADDENDA Patient Demographics Patient Name: MUKUL KAY Patient Primary Phone: [phone] Patient Primary Address: [address] [place] [address] Patient : 1940 Patient Age: 83 Caller/Recipient Relation to Patient: Self Administrative Administrative Note Reason: Home Health / Fdc Administrative Note Comments: [facility], p: [phone]; being d/c'd from on 12/01/23 and needs a d/c f/u appt. please call to assist. Notes Notes & Information: [facility] p: [phone]; being d/c'd from on 12/01/23 and needs a d/c f/u appt. please call to assist. /kasia/ FRANCY MEJIAS Signed: 11/28/2023 10:41 Receipt Acknowledged By: 11/28/2023 10:58 /kasia/ TODD DANIELS RN REGISTERED NURSE 11/28/2023 11:47 /daphney COLLINS LPN LICENSED PRACTICAL NURSE 11/28/2023 ADDENDUM STATUS: COMPLETED Adding AMSA to assist with scheduling appt. /daphney DANIELS RN REGISTERED NURSE Signed: 11/28/2023 10:58 Receipt Acknowledged By: * AWAITING SIGNATURE * PRINCE JAIN [facility]IN [facility]
--- OUTSIDE RECORDS SUMMARY | 2024-08-07 12:19 | XMS_ITS ---
Author Name Department of Vetera Affairs [place] Organization [facility] [place] Address [address] [place] [address] Care Team Providers Care Computer Systems Auditor Name Role Phone LENORA DEJESUS Primary Care [...] Jul 31, 2014 MEDICAR E SUPPLEM E [id number] [phone] FR GAMALIEL KAY PATIENT [facility] MEDICARE SUPPLEMEN EVANGELISTA MEDIC ARE SUPP Jul 31, 2014 SUPP [id number] [phone] FR GAMALIEL KAY PATIENT MEDICARE (WNR) MEDICARE (M) PART A Jan 29, 2004 PART A [id number] [phone] FR GAMALIEL KAY PATIENT MEDICARE (WNR) MEDICARE (M) PART B Jan 29, 2004 PART B [id number] [phone] FR GAMALIEL KAY PATIENT [facility] (WNR) MEDICARE ADVANTAGE [facility] ([facility] Jul 31, 2023 [id number] GAMALIEL MACHADO PATIENT [facility] MCR (WNR) MEDICARE ADVANTAGE MCR (WNR) Jul 31, 2023 [id number] [phone] FR GAMALIEL KAY PATIENT Selected Encounter This section includes the information on record at [place] for the Encounter. Date/Time Encounter Type Encounter Description Reason Pro vider Source December 01, 2023 12:00 PM Outpatient Encounter EVENT (HISTORICAL) IHE Encounter Template Text not used by [place] Plan of Treatment: Future Appointments (+ 6 months) and Future Tests (+/- 45 days) The Plan of Treatment section includes future care activities for the patient from all [place] [facility]. This section includes future appointments and future orders which are active, pending or scheduled. Future Appointments This section includes appointments that were scheduled to occur 6 months from the date of the Encounter, up to a maximum of 20 appointments. The data comes from all [facility]. Appointment Date/Time Appointment Type Appointme nt Facility Name December 11, 2023 10:30 AM AMBULATORY - MEDICINE [facility] [place] [facility] December 20, 2023 09:00 AM AMBULATORY MEDICINE [facility] [place] [facility] December 20, 2023 02:00 PM AMBULATORY - MEDICINE [facility] ([facility]) Jan 08, 2024 10:30 AM AMBULATORY MEDICINE [facility] [place] [facility] Jan 11, 2024 01:00 PM AMBULATORY MEDICINE [facility] [place] [facility] Jan 30, 2024 01:00 PM AMBULATORY - MEDICINE [facility] [place] [facility] Mar 27, 2024 01:00 PM AMBULATORY - MEDICINE [facility] ([facility]) Apr 04, 2024 08:00 AM AMBULATORY - MEDICINE [facility] [place] [facility] May 15, 2024 02:00 PM AMBULATORY - MEDICINE [facility] ([facility]) Active, Pending, and Scheduled Orders This section includes a listing of several types of active, pending, and scheduled orders, including clinic medications orders, diagnostic test orders, procedure orders and consult orders; where the start date of the order is 45 days before the date of the Encounter or 45 days after the date of theEncounter. The data comes from all [facility]. Test Date/Time Test Type Test Details Facility Name 2023 01:37 PM Consult Order COMMUNITY CARE-NEUROLOGY Cons Engine Service Repairer's Choice [facility] Encounter Notes: All associated encounter notes This section contains the clinical notes associated to the Encounter. Date/Time Encounter Note(s) Provider Source December 01, 2023 12:00 PM NONVA NOTE: LOCAL TITLE: NON-[facility] STANDARD TITLE: NONVA NOTE DATE OF NOTE: DECEMBER 01, 2023@12:00 ENTRY DATE: DECEMBER 13, 2023@16:04:01 AUTHOR: CARMELITA SARMIENTO EXP COSIGNER: URGENCY: STATUS: COMPLETED VistA Imaging - Scanned Document SCANNED DOCUMENT SIGNATURE NOT REQUIRED Electronically Filed: 12/13/2023 by: CARMELITA CONSTANTINO [facility]
--- OUTSIDE RECORDS SUMMARY | 2024-08-07 12:19 | XMS_ITS | Encounter Summary ---
Author Name [place] Address [address] [place] [address] Care Team Providers Care Motor Mechanic Name Role Phone LENORA DEJESUS Primary Care [...] Jul 31, 2014 MEDICAR E SUPPLEM E [id number] [phone] FR GAMALIEL KAY PATIENT [facility] MEDICARE SUPPLEMEN EVANGELISTA MEDIC ARE SUPP Jul 31, 2014 SUPP [id number] [phone] FR GAMALIEL KAY PATIENT MEDICARE (WNR) MEDICARE (M) PART A Jan 29, 2004 PART A [id number] [phone] FR GAMALIEL KAY PATIENT MEDICARE (WNR) MEDICARE (M) PART B Jan 29, 2004 PART B [id number] [phone] FR GAMALIEL KAY PATIENT [facility] (WNR) MEDICARE ADVANTAGE [facility] Jul 31, 2023 [id number] [phone] FR GAMALIEL KAY PATIENT [facility] (WNR) MEDICARE ADVANTAGE MCR (WNR) Jul 31, 2023 [id number] [phone] FR GAMALIEL KAY PATIENT Selected Encounter This section includes the information on record at [place] for the Encounter. Date/Time Encounter Type Encounter Description Reason Pro vider Source December 11, 2023 10:20 AM Outpatient Encounter ADMIN PAT ACTIVTIES (MASNONCT) IHE Encounter Template Text not used by [place] Plan of Treatment: Future Appointments (+ 6 months) and Future Tests (+/- 45 days) The Plan of Treatment section includes future care activities for the patient from all [place] [facility]. This section includes future appointments and future orders which are active, pending or scheduled. Future Appointments This section includes appointments that were scheduled to occur 6 months from the date of the Encounter, up to a maximum of 20 appointments. The data comes from all [facility] facilities. Appointment Date/Time Appointment Type Appointme nt Facility Name December 20, 2023 09:00 AM [facility] December 20, 2023 02:00 PM [facility]ULATORY - MEDICINE [facility] Jan 08, 2024 10:30 AM [facility] Jan 11, 2024 01:00 PM AM[facility]ULATORY - [facility]ICINE [facility] [place] [facility] Jan 30, 2024 01:00 PM AMBULATORY - MEDICINE [facility] [place] [place] [facility] Mar 27, 2024 01:00 PM AM[facility]ULATORY - [facility]ICINE [facility] Apr 04, 2024 08:00 AM AMBULATORY - MEDICINE [facility] [place] [facility] May 15, 2024 02:00 PM [facility]UL[facility]ORY - [facility]ICINE [facility] Jun 12, 2024 11:00 AM AMBULATORY - MEDICINE [facility] ([facility]) Active, Pending, and Scheduled Orders This section [...] 01:37 PM Consult Order COMMUNITY CARE-NEUROLOGY Cons Gate Person's Choice [place] [facility] Encounter Notes: All associated encounter notes This section contains the clinical notes associated to the Encounter. Date/Time Encounter Note(s) Provider Source December 11, 2023 12:36 PM ADDENDUM: LOCAL TITLE: Addendum STANDARD TITLE: ADDENDUM DATE OF NOTE: DECEMBER 11, 2023@12:36:59 ENTRY DATE: DECEMBER 11, 2023@12:37 AUTHOR: TODD DANIELS EXP COSIGNER: URGENCY: STATUS: COMPLETED Spoke with Courtney to provide verbal orders for correction, PT and OT. Courtney is requesting that PCP try to discuss palliative care with at next visit to open the door for further conversation . Adding PCP for heads up. /kasia/ TODD DANIELS RN REGISTERED NURSE Signed: 12/11/2023 12:37 Receipt Acknowledged By: 12/11/2023 13:21 /kasia/ LENORA DEJESUS MD PHYSICIAN === --- Original Document --- 12/11/23 CCC: SCHEDULING ADMINISTRATION: Patient Demographics Patient Name: MUKUL KAY Patient Primary Phone: [phone] Patient Primary Address: [address] [place] [address] Patient : 1940 Patient Age: 83 Caller/Recipient Relation to Patient: Other If Other Describe Relation to Patient: SUDHAA Caller Name: Courtney Administrative Administrative Note Reason: Outside Care Performed Administrative Note Comments: AGNES ( Courtney ) is requesting a verbal order for correction and PT, reporting Vet was hospitalized for infection. Please call back at [phone] /es/ SIMI Witt [facility] Signed: 12/11/2023 10:21 Receipt Acknowledged By: 12/11/2023 12:38 /kasia/ TODD DANIELS RN REGISTERED NURSE 12/11/2023 12:48 /kasia/ CHRISTOPHER COLLINS LPN LICENSED PRACTICAL NURSE TODD DANIELS [facility] December 11, 2023 10:20 AM ADMINISTRATIVE NOTE: LOCAL TITLE: CCC: SCHEDULING ADMINISTRATION STANDARD TITLE: ADMINISTRATIVE NOTE DATE OF NOTE: DECEMBER 11, 2023@10:20:55 ENTRY DATE: DECEMBER 11, 2023@10:20:55 AUTHOR: SIMI GAMEZ COSIGNER: URGENCY: STATUS: COMPLETED CCC: SCHEDULING ADMINISTRATION Has ADDENDA Patient Demographics Patient Name: MUKUL KAY Patient Primary Phone: [phone] Patient Primary Address: [address] [place] [address] Patient : 1940 Patient Age: 83 Caller/Recipient Relation to Patient: Other If Other Describe Relation to Patient: VNA Caller Name: Courtney Administrative Administrative Note Reason: Outside Care Performed Administrative Note Comments: AGNES ( Courtney ) is requesting a verbal order for correction and PT, reporting Vet was hospitalized for infection. Please call back at [phone] /kasia/ SIMI GAMEZ VISN 1 [facility] Signed: 12/11/2023 10:21 Receipt Acknowledged By: 12/11/2023 12:38 /es/ TODD DANIELS RN REGISTERED NURSE 12/11/2023 12:48 /es/ CHRISTOPHER COLLINS LPN LICENSED PRACTICAL NURSE 12/11/2023 ADDENDUM STATUS: COMPLETED Spoke with Courtney to provide verbal orders for correction, PT and OT. Courtney is requesting that PCP try to discuss palliative care with at next visit to open the door for further conversation . Adding PCP for heads up. /kasia/ TODD DANIELS RN REGISTERED NURSE Signed: 12/11/2023 12:37 Receipt Acknowledged By: * AWAITING SIGNATURE * LENORA DEJESUS [facility]
--- OUTSIDE RECORDS SUMMARY | 2024-08-07 12:19 | XMS_ITS | Encounter Summary ---
Author Name Department of Veter[place] Affairs [place] Organization [place] Address [address] [place] [address] Care Team Providers Care Grease Cup Filler Name Role Phone LENORA DEJESUS Primary Care [...] Jul 31, 2014 MEDICAR E SUPPLEM E [id number] [phone] FR GAMALIEL KAY PATIENT [facility] MEDICARE SUPPLEMEN EVANGELISTA MEDIC ARE SUPP Jul 31, 2014 SUPP [id number] [phone] FR GAMALIEL KAY PATIENT MEDICARE (WNR) MEDICARE (M) PART A Jan 29, 2004 PART A [id number] [phone] FR GAMALIEL KAY PATIENT MEDICARE (WNR) MEDICARE (M) PART B Jan 29, 2004 PART B [id number] [phone] FR GAMALIEL KAY PATIENT [facility] (WNR) MEDICARE ADVANTAGE [facility] Jul 31, 2023 [id number] [phone] FR GAMALIEL KAY PATIENT [facility] MCR (WNR) MEDICARE ADVANTAGE MCR (WNR) Jul 31, 2023 [id number] [phone] FR GAMALIEL KAY PATIENT Selected Encounter This section includes the information on record at [place] for the Encounter. Date/Time Encounter Type Encounter Description Reason Pro vider Source Nov 20, 2023 09:10 AM Outpatient Encounter PAIN CLINIC IHE Encounter Template Text not used by [place] Plan of Treatment: Future Appointments (+ 6 months) and Future Tests (+/- 45 days) The Plan of Treatment section includes future care activities for the patient from all [place] [facility]. This section includes future appointments and future orders which are active, pending or scheduled. Future Appointments This section includes appointments that were scheduled to occur 6 months from the date of the Encounter, up to a maximum of 20 appointments. The data comes from all [facility]. Appointment Date/Time Appointment Type Appointme nt Facility Name December 11, 2023 10:30 AM AMBULATORY - MEDICINE [facility] [place] [facility] December 20, 2023 09:00 AM AMBULATORY MEDICINE [facility] [place] [facility] December 20, 2023 02:00 PM AMBULATORY - MEDICINE [facility] Jan 08, 2024 10:30 AM AMBULATORY - MEDICINE [facility] [place] [facility] Jan 11, 2024 01:00 PM AMBULATORY MEDICINE [facility] [place] [facility] Jan 30, 2024 01:00 PM AMBULATORY - MEDICINE [place] [facility] [place] [place] [facility] Mar 27, 2024 01:00 PM AMBULATORY - MEDICINE [facility] ([facility]) Apr 04, 2024 08:00 AM AMBULATORY - MEDICINE [facility] [place] [facility] May 15, 2024 02:00 PM AMBULATORY - MEDICINE [facility] ([facility]) Active, Pending, and Scheduled Orders This section includes a listing of several types of active, pending, and scheduled orders, including clinic medications orders, diagnostic test orders, procedure orders and consult orders; where the start date of the order is 45 days before the date of the Encounter or 45 days after the date of theEncounter. The data comes from all [facility]. Test Date/Time Test Type Test Details Facility Name 2023 01:37 PM Consult Order COMMUNITY CARE-NEUROLOGY Cons Reproductive Healthcare Assistant's Choice [place] [facility] Encounter Notes: All associated encounter notes This section contains the clinical notes associated to the Encounter. Date/Time Encounter Note(s) Provider Source Nov 20, 2023 09:11 AM LETTERS: LOCAL TITLE: PATIENT LETTER (B) STANDARD TITLE: LETTERS DATE OF NOTE: NOV 20, 2023@09:11 ENTRY DATE: NOV 20, 2023@09:11:12 AUTHOR: ILIR LAY EXP COSIGNER: URGENCY: STATUS: COMPLETED [facility] Toll Free Number ext [phone] [facility] scheduling can be reached at ext. [phone] [facility]- ext. [phone] [facility]- ext. [phone] [facility]- ext. [phone] NOV 20, 2023 MUKUL KAY [address] [place], [place] [address] Dear MUKUL KAY Thank you for choosing the Department of [facility] Affairs ([place]) [facility] as your primary choice for health care. As a partner in your health care, we are contacting you in writing since we have been unsuccessful in our attempts to reach you to date. We want to assure you we are doing everything possible to schedule Veterans for their VA medical care appointments. Our records indicate you are due for an appointment in pain clinic. If you would like to be seen, please contact [place] Call Center at ext. [phone] to schedule an appointment. Thank you for your service to our nation, and we look forward to hearing from you soon. Sincerely, [facility] [address] [facility] [address] [place] [address] [place] [address] ext [phone] [facility] [address] [facility] [address] [place] [address] [place] [address] ext. [phone] [facility] [address] [address] [place] [address] ext. [phone] ILIR LAY CNT WSN [facility] Nov 20, 2023 09:10 AM ADMINISTRATIVE NOT E: LOCAL TITLE: ADMINISTRATIVE RECALL NOTE STANDARD TITLE: ADMINISTRATIVE NOTE DATE OF NOTE: NOV 20, 2023@09:10 ENTRY DATE: NOV 20, 2023@09:10:39 AUTHOR: ILIR LAY EXP COSIGNER: URGENCY: STATUS: COMPLETED ADMINISTRATIVE RECALL NOTE Has ADDENDA RTC orders: Unable to contact patient: Attempts to contact: 1st attempt: Left voicemail 2nd attempt: Letter mailedDisposition onMa 3rd attempt: 4th attempt: /daphney LAY ADVANCED COUNTER SERVER Signed: 11/20/2023 09:11 11/24/2023 ADDENDUM STATUS: COMPLETED 3rd attempt 11/22/2024 LVM /kasia/ ILIR LAY ADVANCED COUNTER SERVER Signed: 11/24/2023 15:08 ILIR LAY [facility]
--- OUTSIDE RECORDS SUMMARY | 2024-08-07 12:19 | XMS_ITS ---
Author Name Department of [place] Organization [place] Address [address] [place] [address] Care Team Providers Care Credentialer Name Role Phone LENORA DEJESUS Primary Care [...] Jul 31, 2014 MEDICAR E SUPPLEM E [id number] [phone] FR GAMALIEL KAY PATIENT [facility] MEDICARE SUPPLEMEN EVANGELISTA MEDIC ARE SUPP Jul 31, 2014 SUPP [id number] [phone] FR GAMALIEL KAY PATIENT MEDICARE (WNR) MEDICARE (M) PART A Jan 29, 2004 PART A [id number] [phone] FR GAMALIEL KAY PATIENT MEDICARE (WNR) MEDICARE (M) PART B Jan 29, 2004 PART B [id number] [phone] FR GAMALIEL KAY PATIENT [facility] (WNR) MEDICARE ADVANTAGE [facility] ([facility]) Jul 31, 2023 [id number] GAMALIEL MACHADO PATIENT [facility] MCR (WNR) MEDICARE ADVANTAGE MCR (WNR) Jul 31, 2023 [id number] [phone] FR GAMALIEL KAY PATIENT Selected Encounter This section includes the information on record at [place] for the Encounter. Date/Time Encounter Type Encounter Description Reason Pro vider Source December 04, 2023 02:08 PM Outpatient Encounter COMMUNITY CARE CONSULT IHE Encounter Template Text not used by [place] Plan of Treatment: Future Appointments (+ 6 months) and Future Tests (+/- 45 days) The Plan of Treatment section includes future care activities for the patient from all [place] [facility]. This section includes future appointments and future orders which are active, pending or scheduled. Future Appointments This section includes appointments that were scheduled to occur 6 months from the date of the Encounter, up to a maximum of 20 appointments. The data comes from all [facility]. Appointment Date/Time Appointment Type Appointme nt Facility Name December 11, 2023 10:30 AM AMBULATORY - MEDICINE [facility] [place] [facility] December 20, 2023 09:[address] [facility] [place] [facility] December 20, 2023 02:00 PM AMBULATORY - MEDICINE [facility] Jan 08, 2024 10:[address] [facility] [place] [facility] Jan 11, 2024 01:[address] [facility] [place] [facility] Jan 30, 2024 01:00 PM AMBULATORY - MEDICINE [facility] [place] [facility] Mar 27, 2024 01:00 PM AMBULATORY - MEDICINE [facility]) Apr 04, 2024 08:[address] [facility] [place] [facility] May 15, 2024 02:00 PM AMBULATORY - MEDICINE [facility] ([facility]) Active, Pending, and Scheduled Orders This section includes a listing of several types of active, pending, and scheduled orders, including clinic medications orders, diagnostic test orders, procedure orders and consult orders; where the start date of the order is 45 days before the date of the Encounter or 45 days after the date of theEncounter. The data comes from all [facility]. Test Date/Time Test Type Test Details Facility Name 2023 01:37 PM Consult Order COMMUNITY CARE-NEUROLOGY Cons Shoe Stitcher[facility] Choice [facility] [place] [facility] Encounter Notes: All associated encounter notes This section contains the clinical notes associated to the Encounter. Date/Time Encounter Note(s) Provider Source December 04, 2023 02:08 PM NONVA NOTE: LOCAL TITLE: COMMUNITY CARE-JONATHAN SELF PRESENTING CARE COORD PLAN STANDARD TITLE: NONVA NOTE DATE OF NOTE: DECEMBER 04, 2023@14:08 ENTRY DATE: DECEMBER 04, 2023@14:08:37 AUTHOR: NNAMDI SADLER EXP COSIGNER: URGENCY: STATUS: COMPLETED Emergency Notification Intake Date Presenting to the Facility: November Method of Contact: Notified from [employer] worklist Notification ID: [id number] [facility] Referral #: Community [facility] Name: Hospital: [facility] Address: City: [place] State: [place] Zip Code: Phone : Community Facility Point of Contact: Name: Phone: Chief complaint: INFECTION IN LEFT FOOT Primary Diagnosis: Disposition Admitted Route of Admission: ER Date of Admission: November Admitting Diagnosis: INFECTION IN LEFT FOOT Community Care Provider: Confirm Level of Care: /kasia/ NNAMDI MEJIAS Signed: 12/04/2023 14:11 Receipt Acknowledged By: 12/04/2023 15:04 /es/ TODD DANIELS, [place] REGISTERED NURSE 12/04/2023 14:54 /es/ LENORA DEJESUS MD PHYSICIAN 12/04/2023 15:14 /es/ BRADFORD MORENO Registered Nurse Wire Sawyer NNAMDI SADLER NOTREES
--- OUTSIDE RECORDS SUMMARY | 2024-08-07 12:19 | XMS_ITS | Encounter Summary ---
Author Name [place] Organization [place] Address [address] [place] [address] Care Team Providers Care Title Assistant Name Role Phone LENORA ROJO Primary [...] Jul 31, 2014 MEDICAR E SUPPLEM E [id number] [phone] FR GAMALIEL KAY PATIENT [facility] MEDICARE SUPPLEMEN EVANGELISTA MEDIC ARE SUPP Jul 31, 2014 SUPP [id number] [phone] FR GAMALIEL KAY PATIENT MEDICARE (WNR) MEDICARE (M) PART A Jan 29, 2004 PART A [id number] [phone] FR GAMALIEL KAY PATIENT MEDICARE (WNR) MEDICARE (M) PART B Jan 29, 2004 PART B [id number] [phone] FR GAMALIEL KAY PATIENT [facility] (WNR) MEDICARE ADVANTAGE [facility] ([facility]) Jul 31, 2023 [id number] GAMALIEL MACHADO PATIENT [facility]CR (WNR) MEDICARE ADVANTAGE MCR (WNR) Jul 31, 2023 [id number] [phone] FR GAMALIEL KAY PATIENT Selected Encounter This section includes the information on record at [place] for the Encounter. Date/Time Encounter Type Encounter Description Reason Pro vider Source December 19, 2023 01:05 PM Outpatient Encounter PRIMARY CARE/MEDICINE IHE Encounter Template Text not used by [place] Plan of Treatment: Future Appointments (+ 6 months) and Future Tests (+/- 45 days) The Plan of Treatment section includes future care activities for the patient from all [place] treatmentfacilities. This section includes future appointments and future orders which are active, pending or scheduled. Future Appointments This section includes appointments that were scheduled to occur 6 months from the date of the Encounter, up to a maximum of 20 appointments. The data comes from all [place] treatment facilities. Appointment Date/Time Appointment Type Appointme nt Facility Name December 20, 2023 09:00 AM AMBULATORY - MEDICINE [place] [facility] December 20, 2023 02:00 PM [facility] Jan 08, 2024 10:30 AM AMBULATORY - MEDICINE [place] [facility] Jan 11, 2024 01:00 PM AMBULATORY - MEDICINE [place] [facility] Jan 30, 2024 01:00 PM AMBULATORY - MEDICINE [place] [facility] Mar 27, 2024 01:00 PM [facility] Apr 04, 2024 08:00 AM AMBULATORY - MEDICINE [place] [facility] May 15, 2024 02:00 PM [facility] Jun 12, 2024 11:00 AM [facility] Jun 19, 2024 01:00 PM AMBULATORY - MEDICINE [place] [facility] Encounter Notes: All associated encounter notes This section contains the clinical notes associated to the Encounter. Date/Time Encounter Note(s) Provider Source December 19, 2023 01:05 PM NONVA NOTE: LOCAL TITLE: NON-VA MEDICAL RECORD SUMMARY STANDARD TITLE: NONVA NOTE DATE OF NOTE: DECEMBER 19, 2023@13:05 ENTRY DATE: DECEMBER 19, 2023@13:05:55 AUTHOR: TODD DANIELS COSIGNER: URGENCY: STATUS: COMPLETED COPIED & PASTED FROM [facility] NURSE NOTES [facility] Nurse Date of Encounter: 12/11/23 Author: Abigail Mares RN Dear Lenora Rojo MD, I have seen a mutual patient, Erich Kay ( 44) at his home for a follow-up visit after his recent hospitalizations and short-term rehab stint. Jose is improving with each visit I see him; his mobility is more limited than prior to his hospitalizations, but he continues to gain strength and steadiness. He is currently receiving PT in-home and has employed a part- time caregiver to help with ADLs and cleaning. Jose's left foot infection and wound also continues to heal. There is minimal serosanguinous drainage noted and the redness has receded to about half- dollar size. The wound itself measures nickel-size with a red granular base. Jose continues with a DSD on this wound changed daily or every other day, depending on who is there to help him. VSS, although I took his BP right after ambulation and this was elevated (not his norm). I understand Jose has a follow-up appt with yourself next week. VS: 98.0 (tympanic), 90s-100, 20, 150/95, 98%RA. Please let me know if there is any updates to Jose's care plan. COPIED & PASTED FROM [facility] NURSE NOTES [facility] Nurse Date of Encounter: 12/14/23 Author: Abigail Mares RN Dear Lenora Rojo MD, I have seen a mutual patient, Erich Kay ( 44) at his home for a follow-up visit after his recent hospitalizations and [id number] rehab stint. I see Jose for a dressing change and well-being check. Today he also asked me to check his blood glucose POC because the [place] phatmacist wanted this infonnation. Jose's wound has a telma wound bed of beefy red granulation tissue. He did have an increase in drainage this morning and the drainage appeared to be slightly purulent in nature. The bienvenido-wound redness does not appear to be much larger than my previous visit, but it certainly is not receding. I have instructed Jose to keep an eye on this area d/t his past infections. VS: 97.8 tympanic, HR 100s, RR 20-24 (increased with ambulation), BP 124/79, 02 97% RA. Blood sugar POC 136 (fasting) this AM. I will not be in on 12/17, so I will not see Jose again until 12/20, Please let me know if there is any updates to Jose's care plan. /kasia/ TODD DANIELS, FAMILIA REGISTERED NURSE Signed: 12/19/2023 13:11 Receipt Acknowledged By: 12/19/2023 14:02 /kasia/ LENORA ROJO MD PHYSICIAN TODD DANIELS ([facility])
--- OUTSIDE RECORDS SUMMARY | 2024-08-07 12:19 | XMS_ITS ---
Author Name Department [place] Organization [place] Address [address] [place] [address] Care Team Providers Care Director Speech And Hearing Name Role Phone LENORA DEJESUS Primary Care [...] Jul 31, 2014 MEDICAR E SUPPLEM E [id number] [phone] FR GAMALIEL KAY PATIENT [facility] MEDICARE SUPPLEMEN EVANGELISTA MEDIC ARE SUPP Jul 31, 2014 SUPP [id number] [phone] FR GAMALIEL KAY PATIENT MEDICARE (WNR) MEDICARE (M) PART A Jan 29, 2004 PART A [id number] [phone] FR GAMALIEL KAY PATIENT MEDICARE (WNR) MEDICARE (M) PART B Jan 29, 2004 PART B [id number] [phone] FR GAMALIEL KAY PATIENT [facility] (WNR) MEDICARE ADVANTAGE [facility] ([facility]) Jul 31, 2023 [id number] [phone] RAHULFR GAMALIEL MACHADO PATIENT [facility] (WNR) MEDICARE ADVANTAGE MCR (WNR) Jul 31, 2023 [id number] [phone] FR GAMALIEL KAY PATIENT Selected Encounter This section includes the information on record at [place] for the Encounter. Date/Time Encounter Type Encounter Description Reason Pro vider Source November 30, 2023 03:44 PM Outpatient Encounter PRIMARY CARE/MEDICINE IHE Encounter Template Text not used by [place] Plan of Treatment: Future Appointments (+ 6 months) and Future Tests (+/- 45 days) The Plan of Treatment section includes future care activities for the patient from all [place] [facility]. This section includes future appointments and future orders which are active, pending or scheduled. Future Appointments This section includes appointments that were scheduled to occur 6 months from the date of the Encounter, up to a maximum of 20 appointments. The data comes from all [facility]. Appointment Date/Time Appointment Type Appointme nt Facility Name December 11, 2023 10:30 AM AMBULATORY - MEDICINE [facility] [place] [facility] December 20, 2023 09:00 AM AMBULATORY MEDICINE [facility] [place] [place] [facility] December 20, 2023 02:00 PM AMBULATORY - MEDICINE [facility] ([facility]) Jan 08, 2024 10:30 AM AMBULATORY MEDICINE [facility] [place] [facility] Jan 11, 2024 01:00 PM AMBULATORY MEDICINE [facility] [place] [facility] Jan 30, 2024 01:00 PM AMBULATORY - MEDICINE [facility] [place] [facility] Mar 27, 2024 01:00 PM AMBULATORY - MEDICINE [facility] ([facility]) Apr 04, 2024 08:00 AM AMBULATORY - MEDICINE [facility] [place] [facility] May 15, 2024 02:00 PM AMBULATORY - MEDICINE [facility] ([facility]) Active, Pending, and Scheduled Orders This section includes a listing of several types of active, pending, and scheduled orders, including clinic medications orders, diagnostic test orders, procedure orders and consult orders; where the start date of the order is 45 days before the date of the Encounter or 45 days after the date of theEncounter. The data comes from all [facility]. Test Date/Time Test Type Test Details Facility Name 2023 01:37 PM Consult Order COMMUNITY CARE-NEUROLOGY Cons [employer] [facility] [place] [facility] Encounter Notes: All associated encounter notes This section contains the clinical notes associated to the Encounter. Date/Time Encounter Note(s) Provider Source November 30, 2023 03:44 PM NONVA NOTE: LOCAL TITLE: NON-VA MEDICAL RECORD SUMMARY STANDARD TITLE: NONVA NOTE DATE OF NOTE: NOVEMBER 30, 2023@15:44 ENTRY DATE: NOVEMBER 30, 2023@15:44:52 AUTHOR: TODD DANIELS EXP COSIGNER: URGENCY: STATUS: COMPLETED COPIED & [facility]ST[facility] FROM [facility] Date of Discharge: 12/01/23 Author: Sloan Aldana MD History Of Present Illness: 83 yo male hx permanent cardiac pacemaker, type 2 dm, htn, iparkinsons dz. type 2 dm who presented to er wth a worsening diabetic foot infection. Pt met the criteris for sepsis with leukocytosis, tachycardia, and transient hypotension. Patient was followed by podiatry who recently debrided his left foot, Patient saw ID who recmmended a 7 day course of linezolid, Blood cultures have remained negative. Medication List: Alogliptin 25 mg every day eliquis s mg twice daily sinemet 25/100 mg 3x daily lasix 20 mg every day metoprolol tartrate 50 mg twice daily DISCHARGE Discharge To: Home with medications and [facility] services Facility course: Admitted for completion of oral antibiotic for diabetic foot infection. Wound healed appropriately. Patient responded to pt. He will be dc home, shares apartment with rommate. a1c was 6.7 Discharge Condition: Improved PCP Heads-Up: Needs fu with pcp at [place], needs wound check fu labs DME: walker Followup appointments: [facility] pcp 2 weeks has PCP f/u appt scheduled for 12/06/23. /kasia/ TODD DANIELS RN REGISTERED NURSE Signed: 11/30/2023 15:51 Receipt Acknowledged By: 11/30/2023 16:21 /es/ LENORA DEJESUS MD PHYSICIAN TODD DANIELS ([facility])
--- OUTSIDE RECORDS SUMMARY | 2024-08-07 12:19 | XMS_ITS | Encounter Summary ---
Author Name [place] Address [address] [place] [address] Care Team Providers Care Continuous Loft Operator Name Role Phone LENORA DEJESUS Primary [...] Jul 31, 2014 MEDICAR E SUPPLEM E [id number] [phone] FR GAMALIEL KAY PATIENT [facility] MEDICARE SUPPLEMEN EVANGELISTA MEDIC ARE SUPP Jul 31, 2014 SUPP [id number] [phone] FR GAMALIEL KAY PATIENT MEDICARE (WNR) MEDICARE (M) PART A Jan 29, 2004 PART A [id number] [phone] FR GAMALIEL KAY PATIENT MEDICARE (WNR) MEDICARE (M) PART B Jan 29, 2004 PART B [id number] [phone] FR GAMALIEL KAY PATIENT [facility] (WNR) MEDICARE ADVANTAGE [facility] ([facility]) Jul 31, 2023 [id number] [phone] FR GAMALIEL KAY PATIENT [facility] (WNR) MEDICARE ADVANTAGE MCR (WNR) Jul 31, 2023 [id number] [phone] FR GAMALIEL KAY PATIENT Selected Encounter This section includes the information on record at [place] for the Encounter. Date/Time Encounter Type Encounter Description Reason Pro vider Source December 04, 2023 03:55 PM Outpatient Encounter ADMIN PAT ACTIVTIES (MASNONCT) IHE Encounter Template Text not used by [place] Plan of Treatment: Future Appointments (+ 6 months) and Future Tests (+/- 45 days) The Plan of Treatment section includes future care activities for the patient from all [place] [facility]. This section includes future appointments and future orders which are active, pending or scheduled. Future Appointments This section includes appointments that were scheduled to occur 6 months from the date of the Encounter, up to a maximum of 20 appointments. The data comes from all [facility] facilities. Appointment Date/Time Appointment Type Appointme nt Facility Name December 11, 2023 10:30 AM AMBULATORY - MEDICINE [facility] [place] [facility] December 20, 2023 09:00 AM AMBULATORY - MEDICINE [facility] [place] [facility] December 20, 2023 02:00 PM AMBULATORY - MEDICINE [facility] Jan 08, 2024 10:30 AM AMBULATORY - MEDICINE [facility] [place] [facility] Jan 11, 2024 01:00 PM AMBULATORY MEDICINE [facility] [place] [facility] Jan 30, 2024 01:00 PM AMBULATORY - MEDICINE [facility] [place] [facility] Mar 27, 2024 01:00 PM AMBULATORY - MEDICINE [facility] ([facility]) Apr 04, 2024 08:00 AM AMBULATORY - MEDICINE [facility] [place] [facility] May 15, 2024 02:00 PM AMBULATORY - MEDICINE [facility] ([facility]) Active, Pending, and Scheduled Orders This section [...] 01:37 PM Consult Order COMMUNITY CARE-NEUROLOGY Cons Panel Installer[facility] Choice [facility] Encounter Notes: All associated encounter notes This section contains the clinical notes associated to the Encounter. Date/Time Encounter Note(s) Provider Source December 04, 2023 03:55 PM ADMINISTRATIVE NOT E: LOCAL TITLE: CCC: SCHEDULING ADMINISTRATION STANDARD TITLE: ADMINISTRATIVE NOTE DATE OF NOTE: DECEMBER 04, 2023@15:55:33 ENTRY DATE: DECEMBER 04, 2023@15:55:33 AUTHOR: DEISY ARNDT COSIGNER: URGENCY: STATUS: COMPLETED CCC: SCHEDULING ADMINISTRATION Has ADDENDA Patient Demographics Patient Name: MUKUL KAY Patient Primary Phone: [phone] Patient Primary Address: [address] [place] [place] [address] Patient : 1940 Patient Age: 83 Current Location: [facility] visiting nurses Call Back Number: [phone] Caller/Recipient Relation to Patient: Caregiver Caller Name: stephen Administrative Administrative Note Reason: Home Health / Custodial Administrative Note Comments: calling and stated that pt was seen this past weekend for ot and pt and stated he has falllen mon and monday stated no injuries and no symptoms nurse is asking for a med rec to be done /kasia/ DEISY [facility] Signed: 12/04/2023 15:55 Receipt Acknowledged By: 12/05/2023 11:26 /es/ TODD DANIELS RN REGISTERED NURSE 12/05/2023 12:53 /es/ CHRISTOPHER COLLINS LPN LICENSED PRACTICAL NURSE 12/05/2023 ADDENDUM STATUS: COMPLETED is inpatient at [facility] for L foot infection. Will address med rec following discharge. /kasia/ TODD DANIELS RN REGISTERED NURSE Signed: 12/05/2023 11:26 DEISY ARNDT [facility]
--- OUTSIDE RECORDS SUMMARY | 2024-08-07 12:19 | XMS_ITS | Encounter Summary ---
Author Name [facility] [place] Address [address] [place] [address] Care Team Providers Care Data Warehousing Manager Name Role Phone LENORA DEJESUS Primary [...] Jul 31, 2014 MEDICAR E SUPPLEM E [id number] [phone] FR GAMALIEL KAY PATIENT [facility] MEDICARE SUPPLEMEN EVANGELISTA MEDIC ARE SUPP Jul 31, 2014 SUPP [id number] [phone] FR GAMALIEL KAY PATIENT MEDICARE (WNR) MEDICARE (M) PART A Jan 29, 2004 PART A [id number] [phone] FR GAMALIEL KAY PATIENT MEDICARE (WNR) MEDICARE (M) PART B Jan 29, 2004 PART B [id number] [phone] FR GAMALIEL KAY PATIENT [facility] (WNR) MEDICARE ADVANTAGE [facility] ([facility]) Jul 31, 2023 [id number] [phone] FR GAMALIEL KAY PATIENT [facility] (WNR) MEDICARE ADVANTAGE MCR (WNR) Jul 31, 2023 [id number] [phone] FR GAMALIEL KAY PATIENT Selected Encounter This section includes the information on record at [place] for the Encounter. Date/Time Encounter Type Encounter Description Reason Pro vider Source December 05, 2023 11:24 AM Outpatient Encounter ADMIN PAT ACTIVTIES (MASNONCT) IHE Encounter Template Text not used by [place] Plan of Treatment: Future Appointments (+ 6 months) and Future Tests (+/- 45 days) The Plan of Treatment section includes future care activities for the patient from all [place] [facility]. This section includes future appointments and future orders which are active, pending or scheduled. Future Appointments This section includes appointments that were scheduled to occur 6 months from the date of the Encounter, up to a maximum of 20 appointments. The data comes from all [facility] facilities. Appointment Date/Time Appointment Type Appointme nt Facility Name December 11, 2023 10:30 AM AMBULATORY - MEDICINE [facility] [place] [facility] December 20, 2023 09:00 AM AMBULATORY - MEDICINE [facility] [place] [facility] December 20, 2023 02:00 PM AMBULATORY - MEDICINE [facility] ([facility] Jan 08, 2024 10:30 AM AMBULATORY - MEDICINE [facility] [place] [facility] Jan 11, 2024 01:00 PM AMBULATORY MEDICINE [facility] [place] [facility] Jan 30, 2024 01:00 PM AMBULATORY - MEDICINE [facility] [place] [facility] Mar 27, 2024 01:00 PM AMBULATORY - MEDICINE [facility] ([facility]) Apr 04, 2024 08:00 AM AMBULATORY - MEDICINE [facility] [place] [facility] May 15, 2024 02:00 PM AMBULATORY - MEDICINE [facility] ([facility]) Active, Pending, and Scheduled [...] 01:37 PM Consult Order COMMUNITY CARE-NEUROLOGY Cons [employer] [facility] Encounter Notes: All associated encounter notes This section contains the clinical notes associated to the Encounter. Date/Time Encounter Note(s) Provider Source December 05, 2023 11:24 AM ADMINISTRATIVE NOT E: LOCAL TITLE: CCC: SCHEDULING ADMINISTRATION STANDARD TITLE: ADMINISTRATIVE NOTE DATE OF NOTE: DECEMBER 05, 2023@11:24:29 ENTRY DATE: DECEMBER 05, 2023@11:24:29 AUTHOR: RON ROJAS EXP COSIGNER: URGENCY: STATUS: COMPLETED Patient Demographics Patient Name: MUKUL KAY Patient Primary Phone: [phone] Patient Primary Address: [address] [place] [address] Patient : 1940 Patient Age: 83 Caller/Recipient Relation to Patient: Self Administrative Administrative Note Reason: Outside Care Performed Administrative Note Comments: Pt called to update his Team. Pt is currently an inpatient at [facility] with an infection to his LT foot /es/ RON ROJAS [id number] Signed: 12/05/2023 11:24 Receipt Acknowledged By: 12/05/2023 11:25 /es/ TODD DANIELS, FAMILIA REGISTERED NURSE 12/05/2023 16:29 /es/ LENORA DEJESUS MD PHYSICIAN 12/05/2023 12:53 /es/ CHRISTOPHER COLLINS LPN LICENSED PRACTICAL NURSE [facility]
--- OUTSIDE RECORDS SUMMARY | 2024-08-07 12:19 | XMS_ITS | Encounter Summary ---
Author Name [facility] [place] Organization [facility] [place] Address [address] [place] [id number] Care Team Providers Care Solderer Barrel Ribs Name Role Phone LENORA DEJESUS Primary Care [...] Jul 31, 2014 MEDICAR E SUPPLEM E [id number] [phone] FR RAHUL GAMALIEL PATIENT [facility] MEDICARE SUPPLEMEN [place] MEDIC ARE SUPP Jul 31, 2014 SUPP [id number] [phone] FR RAHUL GAMALIEL PATIENT MEDICARE (WNR) MEDICARE (M) PART A Jan 29, 2004 PART A [id number] RAHUL GAMALIEL PATIENT MEDICARE (WNR) MEDICARE (M) PART B Jan 29, 2004 PART B [id number] [phone] FR RAHUL GAMALIEL PATIENT [facility] (WNR) MEDICARE ADVANTAGE [facility] ([facility]) Jul 31, 2023 [id number] [phone] FR GAMALIEL KAY PATIENT [facility] MCR (WNR) MEDICARE ADVANTAGE MCR (WNR) Jul 31, 2023 [id number] [phone] FR GAMALIEL KAY PATIENT Selected Encounter This section includes the information on record at [place] for the Encounter. Date/Time Encounter Type Encounter Description Reason Provider Source December 11, 2023 10:30 AM MTMS BY PHARM EST 15 MIN TELEPHONE PRIMARY CARE ICD-10-CM E11.9 Type 2 diabetes mellitus without complications RUEL CARPENTER Encounter Template Text not used by [place] Assessments - Encounter Diagnoses This section includes the primary and secondary diagnoses documented for the Encounter. Date/Time Primary/Secondary Diagnosis Diagnosis Name Provider Source December 11, 2023 10:30 AM PRIMARY Type 2 diabetes mellitus without complications RUEL CARPENTER ([facility]) Plan of Treatment: Future Appointments (+ 6 months) and Future Tests (+/- 45 days) The Plan of Treatment section includes future care activities for the patient from all [place] treatmentfacilities. This section includes future appointments and future orders which are active, pending or scheduled. Future Appointments This section includes appointments that were scheduled to occur 6 months from the date of the Encounter, up to a maximum of 20 appointments. The data comes from all [place] treatment facilities. Appointment Date/Time Appointment Type Appointme nt Facility Name December 20, 2023 09:00 AM AMBULATORY - MEDICINE [place] [facility] [place] [facility] December 20, 2023 02:00 PM AMBULATORY - MEDICINE [facility] ([facility]) Jan 08, 2024 10:30 AM AMBULATORY - MEDICINE [place] [facility] [place] [place] [facility] Jan 11, 2024 01:00 PM AMBULATORY - MEDICINE [place] [facility] [place] [facility] Jan 30, 2024 01:00 PM AMBULATORY - MEDICINE [place] [facility] [place] [place] [facility] Mar 27, 2024 01:00 PM AMBULATORY - MEDICINE [facility] ([facility]) Apr 04, 2024 08:00 AM AMBULATORY - MEDICINE [place] [facility] [place] [facility] May 15, 2024 02:00 PM AMBULATORY - MEDICINE [facility] ([facility]) Jun 12, 2024 11:00 AM AMBULATORY - MEDICINE [facility] ([facility]) Active, Pending, and Scheduled Orders This section includes a listing of several types of active, pending, and scheduled orders, including clinic medications orders, diagnostic test orders, procedure orders and consult orders; where the start date of the order is 45 days before the date of the Encounter or 45 days after the date of theEncounter. The data comes from all [place] treatment facilities. Test Date/Time Test Type Test Details Facility Name 2023 01:37 PM Consult Order COMMUNITY CARE-NEUROLOGY Cons Neurology Physician Assistant's Choice [place] [facility] [place] [facility] Social History: Smoking Status (Most current) and Tobacco Use (All prior to encounter date) This section includes the most current, and the historical, smoking and tobacco- related health factors from the [place] facility where the Encounter took place. Current Smoking Status This section includes the most current smoking, or tobacco-related health factor, from the [place] facility where the Encounter took place. Date/Time Current Smoking Status Comment Facil ity Sep 22, 2023 01:00 PM VA-TOBACCO NEVER USED [facility] ([facility]) Tobacco Use History This section includes a history of the smoking, or tobacco-related health factors, that were collected on or before the date of the Encounter. The data comes from the [place] facility where the Encounter took place. Date/Time [...] Encounter Note(s) Provider Source December 11, 2023 10:30 AM PHARMACY TELEPHONE ENCOUNTER NOTE: LOCAL TITLE: TELEPHONE NOTE/PHARMACY STANDARD TITLE: PHARMACY TELEPHONE ENCOUNTER NOTE DATE OF NOTE: DECEMBER 11, 2023@10:30 ENTRY DATE: DECEMBER 11, 2023@10:27:31 AUTHOR: NARDA CARPENTER COSIGNER: URGENCY: STATUS: COMPLETED Called pt to obtain BG readings. Pt was last called on 10/24/23, at which point glimepiride 2mg daily was discontinued, and alogliptin 25mg daily was initiated. Today, pt reports taking his DM medication as prescribed. Pt was recently in the hospital/rehab for about a month for a foot wound infx. He returned home last week. Pt is unable to test his BG at home due to his bad hand tremors. He has a VNA who visits 1-2x/week who may be able to help him test his BG. Pt denies any recent s/sx of hypoglycemia. SMBG: not testing fingerpricks due to bad hand tremors Diet Patterns: patient eats on avg. 2-3x/day: Wake: 5-6am B: 9-10am; eggs & homefries w/ juice or coffee; L: 12-1pm; sometimes skips; Romansh takeout; baked beans, PBJ, ham and cheese sandwich D: 5-7pm; chicken with veggies, sweet potatoes; sometimes pork or steak Bed: 10-10:30pm Snacks: corn chips; pitted dried dates; dried prunes Drinks: juice, coffee Alcohol: occasional beer once every 2 weeks Tobacco: denies Exercise: rare/minimal; uses a walker to ambulate Adherence: reports rarelly misses dose Occupation: retired A/P: DIABETES A1c is at goal of <8% (6.6% on 09/13/23) - Medication management - CONTINUE alogliptin 25mg daily - Note: past trial of metformin SA resulted in intolerable GI AEs - Start to SMBG 2x/week - pt will ask VNA to help test his BG during visits - Monitor for s/sx hypoglycemia and contact clinic if BG consistently <70mg/dL - Healthy dietary and lifestyle modifications encouraged - Repeat A1c: January 2024 Clinic's Next Scheduled Follow-up: 01/08/24 @1030 *phone clinic* Time Spent: 15 minutes PBM PharmD Pharmacotherapy Rem V12: PHARMACIST INTERVENTIONS: TYPE 2 DIABETES MELLITUS Medication monitoring, no dosage change required, continue to monitor and assess Medication reconciliation (changes to active VA and non-VA medication lists to reconcile differences) No changes to medication lists made (medication review completed, no discrepancies identified) /kasia/ Narda Carpenter, Donnell Clinical Wastewater Supervisor Signed: 12/11/2023 10:57 NARDA CAREPNTER ([facility])
--- OUTSIDE RECORDS SUMMARY | 2024-08-07 12:19 | XMS_ITS | Encounter Summary ---
Author Name [facility] [place] Address [address] [place] [address] Care Team Providers Care Automatic Casting Machine Operator Name Role Phone LENORA DEJESUS Primary [...] Jul 31, 2014 MEDICAR E SUPPLEM E [id number] [phone] FR GAMALIEL KAY PATIENT [facility] MEDICARE SUPPLEMEN [place]ANG[place]IST[place] MEDIC ARE SUPP Jul 31, 2014 SUPP [id number] [phone] FR GAMALIEL KAY PATIENT MEDICARE (WNR) MEDICARE (M) PART A Jan 29, 2004 PART A [id number] [phone] FR GAMALIEL KAY PATIENT MEDICARE (WNR) MEDICARE (M) PART B Jan 29, 2004 PART B [id number] [phone] FR GAMALIEL KAY PATIENT [facility] (WNR) MEDICARE ADVANTAGE [facility] ([facility]) Jul 31, 2023 [id number] RAHUL GAMALIEL PATIENT [facility] (WNR) MEDICARE ADVANTAGE [facility] (WNR) Jul 31, 2023 [id number] RAHUL GAMALIEL PATIENT Selected Encounter This section includes the information on record at [place] for the Encounter. Date/Time Encounter Type Encounter Description Reason Provider Source Sep 26, 2023 08:02 AM Outpatient Encounter PROSTHETICS/ORTHOTI ALEXA HALL Encounter Template Text not used by [place] Plan of Treatment: Future Appointments (+ 6 months) and Future Tests (+/- 45 days) The Plan of Treatment section includes future care activities for the patient from all [place] treatmentfacilities. This section includes future appointments and future orders which are active, pending or scheduled. Future Appointments This section includes appointments that were scheduled to occur 6 months from the date of the Encounter, up to a maximum of 20 appointments. The data comes from all [place] treatment facilities. Appointment Date/Time Appointment Type Appointme nt Facility Name Oct 03, 2023 11:30 AM AMBULATORY - MEDICINE [place] [facility] [place] [facility] Oct 06, 2023 03:00 PM AMBULATORY - PSYCHIATRY [place] [facility] [place] [place] [facility] Oct 10, 2023 02:00 PM AMBULATORY - MEDICINE [facility] Oct 11, 2023 01:00 PM AMBULATORY - NONE [place] [facility] [place] [facility] Oct 16, 2023 02:00 PM AMBULATORY - MEDICINE [place] [facility] [place] [facility] Oct 24, 2023 11:30 AM AMBULATORY - MEDICINE [place] [facility] [place] [facility] Oct 26, 2023 01:30 PM AMBULATORY - NEUROLOGY [place] [facility] [place] [facility] Nov 13, 2023 01:00 PM AMBULATORY - MEDICINE [place] [facility] [place] [facility] December 11, 2023 10:30 AM AMBULATORY - MEDICINE [place] [facility] [place] [facility] December 20, 2023 09:00 AM AMBULATORY - MEDICINE [place] [facility] [place] [facility] December 20, 2023 02:00 PM AMBULATORY - MEDICINE [facility] Jan 08, 2024 10:30 AM AMBULATORY - MEDICINE [place] [facility] [place] [facility] Jan 11, 2024 01:00 PM [facility] Jan 30, 2024 01:00 PM AMBULATORY - MEDICINE [facility] Active, Pending, and Scheduled Orders This section includes a listing of several types of active, pending, and scheduled orders, including clinic medications orders, diagnostic test orders, procedure orders and consult orders; where the start date of the order is 45 days before the date of the Encounter or 45 days after the date of theEncounter. The data comes from all [place] treatment facilities. Test Date/Time Test Type Test Details Facility Name 2023 01:37 PM Consult Order COMMUNITY CARE-NEUROLOGY Cons Hospitality Aide's Choice [facility] Lab Results: +/- 30 days of the encounter This section includes the Chemistry and Hematology Lab Results on record with [place] for the patient. Radiology Reports and Pathology Reports are provided separately, in subsequent sections. Lab Results This section contains the Chemistry/Hematology Results that were resulted 30 days before or 30 daysafter the date of the Encounter. Date/Time Source Result Type Result - Unit Interpretation Reference Range Comment Sep 13, 2023 01:18 PM [place] ([facility]) VITAMIN D (25-[place]) Specimen Type: SERUM No comment entered. Ordering Provider: FLYNN DEJESUS Report Released Date/Time: Sep 08, 2023 04:05 PM Reporting Lab: [address] [address] Performing Lab: [address] [address] VITAMIN D (25-[place]) 39 ng/mL 20-50 Sep 13, 2023 01:18 PM [place] ([facility]) MICROALBUMIN CREATININE RATIO PANEL Specimen Type: URINE No comment entered. Ordering Provider: FLYNN DEJESUS Report Released Date/Time: Sep 08, 2023 04:05 PM Reporting Lab: [facility] [address] [facility] [address] Performing Lab: [address] [address] MICROALBUMIN/C REATININE RATIO 16.2 mg/g 0-29.9 MICROALBUMIN,Q UANTITATIVE 2.8 mg/dL RR UNAVAIL CREATININE URINE 172.87 mg/dL Sep 13, 2023 01:18 PM [facility] ([facility]) VITAMIN B12 Specimen Type: SERUM No comment entered. Ordering Provider: FLYNN DEJESUS Report Released Date/Time: Sep 08, 2023 04:05 PM Reporting Lab: [address] [address] Performing Lab: [address] [address] VITAMIN B12 359 pg/mL 200-900 Sep 13, 2023 01:18 PM [place] ([facility]) URINALYSIS Specimen Type: URINE Comment: If Glucose = >500 and Ketones are positive, please alert the Physician. Ordering Provider: FLYNN DEJESUS Report Released Date/Time: Sep 08, 2023 04:05 PM Reporting Lab: [address] [address] Performing Lab: [address] [address] UA COLOR Yellow Yellow UA APPEARANCE Clear Clear UA GLUCOSE NEGATIVE mg/dL Negative UA KETONES NEGATIVE mg/dL Negative UA BLOOD NEGATIVE mg/dL Negative UA PROTEIN 20 mg/dL Negative UA NITRITE NEGATIVE mg/dL Negative UA BILIRUBIN NEGATIVE mg/dL Negative UA SPECIFIC GRAVITY 1.027 H 1.016-1.022 UA pH 5.5 5.0-9.0 UA UROBILINOGEN <2.0 mg/dL <2.0 UA LEUKOCYTE NEGATIVE Negative Sep 13, 2023 01:18 PM [place] ([facility]) TSH Specimen Type: SERUM No comment entered. Ordering Provider: FLYNN DEJESUS Report Released Date/Time: Sep 08, 2023 04:05 PM Reporting Lab: [address] [address] Performing Lab: [address] [address] TSH 1.81 u[IU]/mL 0.35-5.00 Sep 13, 2023 01:18 PM [place] ([facility]) HEMOGLOBIN A1C PANEL Specimen Type: BLOOD [...] Sep 08, 2023 04:05 PM Reporting Lab: [address] [address] Performing Lab: [address] [address] HEMOGLOBIN A1C 6.6 H 4.0-5.6 Sep 13, 2023 01:18 PM [place] ([facility] BASIC METABOLIC PANEL (non-fasting) Specimen Type: SERUM No comment entered. Ordering Provider: FLYNN DEJESUS Report Released Date/Time: Sep 08, 2023 04:05 PM Reporting Lab: [address] [address] Performing Lab: [address] [address] UREA NITROGEN 23 mg/dL 7-25 GLUCOSE 120 mg/dL H 65-100 SODIUM 138 mmol/L 135-145 POTASSIUM 3.9 mmol/L 3.5-5.0 CHLORIDE 104 mmol/L 100-110 CO2 25 meq/L 20-30 CREATININE, Serum 1.15 mg/dL 0.50-1.40 eGFR(CKD-EPI 2020) 64 mL/min >60 Sep 13, 2023 01:18 PM [place] ([facility]) LIVER FUNCTION Specimen Type: SERUM No comment entered. Ordering Provider: FLYNN DEJESUS Report Released Date/Time: Sep 08, 2023 04:05 PM Reporting Lab: [address] [address] Performing Lab: [address] [address] PROTEIN,TOTAL 7.1 g/dL 6.0-8.3 ALBUMIN 3.8 g/dL 3.5-5.0 ALKALINE PHOSPHATASE 82 U/L 40-150 AST 16 U/L 5-34 ALT 6 U/L BILIRUBIN, TOTAL 0.8 mg/dL 0.2-1.2 Sep 13, 2023 01:18 PM [place] ([facility]) LIPID PANEL, NON FASTING Specimen Type: SERUM No comment entered. Ordering Provider: FLYNN DEJESUS Report Released Date/Time: Sep 08, 2023 04:05 PM Reporting Lab: [address] [address] Performing Lab: [address] [address] CHOLESTEROL 181 mg/dL TRIGLYCERIDE 142 mg/dL 0-150 LDL calculated 113 mg/dL 0-129 CHOL/HDL 4.5 HDL CHOLESTEROL 40 mg/dL 40-60 Sep 13, 2023 01:18 PM [place] ([facility]) CBC AND DIFF (AUTO) Specimen Type: BLOOD No comment entered. Ordering Provider: FLYNN DEJESUS Report Released Date/Time: Sep 08, 2023 04:05 PM Reporting Lab: [address] [address] Performing Lab: [address] [address] WBC 8.48 10*3/uL 4.50-11.00 RBC 5.71 10*6/uL H 4.23-5.66 HGB 16.6 g/dL 12.8-17 HCT 49.8 39.2-50.4 MCV 87.2 fL 82-99 MCHC 33.3 g/dL 30.8-35.1 PLT 242 10*3/uL 140-360 RDW-CV 13.7 12.0-16.0 Peach, Abs 0.73 10*3/uL 0.30-1.10 MCH 29.1 pg 26.2-32.6 Neut % 71.1 43.7-75.8 Lymph % 18.8 14.0-42.3 Peach % 8.6 5.1-13.7 Eos % 0.6 0.4-6.8 [...] the Encounter. The data comes from all [place] treatment facilities. Date/Time Radiology Report Provider Source Oct 11, 2023 12:[address] LUMBAR SPINE W/O CONT: MUKUL KAY MIKE [id number] -[id number] M Exm Date: OCT 11, 2023@12:58 Req Phys: LENORA DEJESUS Pat Loc: [facility]/GO/PACT 1 WH (Req'g Loc) Img Loc: [facility]/CT Service: Unknown (Case [id number] COMPLETE) CT LUMBAR SPINE W/O CONT (CT Detailed) CPT:26202 Reason for Study: back pain Clinical History: radiating left leg Report Status: Verified Date Reported: OCT 12, 2023 Date Verified: OCT 12, 2023 House Cleaner E-Sig: Report: CT LUMBAR SPINE W/O CONT HISTORY: back pain COMPARISON: None TECHNIQUE: CT of the lumbar spine performed without contrast. Images were received by the [place] National Teleradiology Program (NTP) for interpretation. RADIATION [...] chronic. Correlate clinically. READING PHYSICIAN: Mir Nuñez -[id number] 10/12/2023 10:03 [facility] National Teleradiology Program [phone] (For Medical Practitioner Use Only) Attention Patients / Veterans: If you have questions or concerns about these test results, please contact your ordering provider or primary care team. Primary Diagnostic Code: SIGNIFICANT ABNORMALITY, ATTN NEEDED Primary Interpreting Staff: RADIOLOGY,OUTSIDE SERVICE, Staff Physician / RADIOLOGY,OUTSIDE SERVICE [place] [facility]
--- OUTSIDE RECORDS SUMMARY | 2024-08-07 12:20 | XMS_ITS | Encounter Summary ---
Author Name [facility] [place] Organization [place] Address [address] [place] [address] Care Team Providers Care Bingo Clerk Name Role Phone LENORA ROJO Primary Care [...] Jul 31, 2014 MEDICAR E SUPPLEM E [id number] [phone] FR GAMALIEL KAY PATIENT [facility] MEDICARE SUPPLEMEN [place] MEDIC ARE SUPP Jul 31, 2014 SUPP [id number] [phone] FR GAMALIEL KAY PATIENT MEDICARE (WNR) MEDICARE (M) PART A Jan 29, 2004 PART A [id number] [phone] FR GAMALIEL KAY PATIENT MEDICARE (WNR) MEDICARE (M) PART B Jan 29, 2004 PART B [id number] [phone] FR GAMALIEL KAY PATIENT [facility] (WNR) MEDICARE ADVANTAGE [facility]) Jul 31, 2023 [id number] [phone] FR GAMALIEL KAY PATIENT [facility] (WNR) MEDICARE ADVANTAGE [facility] (WNR) Jul 31, 2023 [id number] [phone] FR GAMALIEL KAY PATIENT Selected Encounter This section includes the information on record at [place] for the Encounter. Date/Time Encounter Type Encounter Description Reason Pro vider Source Jan 11, 2024 09:53 AM Outpatient Encounter PRIMARY CARE/MEDICINE I[facility] Encounter Template Text not used by [place] Plan of Treatment: Future Appointments (+ 6 months) and Future Tests (+/- 45 days) The Plan of Treatment section includes future care activities for the patient from all [place] treatmentfacilities. This section includes future appointments and future orders which are active, pending or scheduled. Future Appointments This section includes appointments that were scheduled to occur 6 months from the date of the Encounter, up to a maximum of 20 appointments. The data comes from all [place] treatment facilities. Appointment Date/Time Appointment Type Appointme nt Facility Name Jan 30, 2024 01:00 PM AMBULATORY - MEDICINE [facility] [place] [place] [facility] Mar 27, 2024 01:00 PM AMBULATORY - MEDICINE [facility] ([facility]) Apr 04, 2024 08:00 AM AMBULATORY - MEDICINE [facility] [place] [facility] May 15, 2024 02:00 PM AMBULATORY - MEDICINE [facility] ([facility]) Jun 12, 2024 11:00 AM AMBULATORY - MEDICINE [facility] ([facility]) Jun 19, 2024 01:00 PM AMBULATORY - MEDICINE [facility] [place] [facility] Jun 25, 2024 02:30 PM AMBULATORY - MEDICINE [facility] [place] [facility] Encounter Notes: All associated encounter notes This section contains the clinical notes associated to the Encounter. Date/Time Encounter Note(s) Provider Source Jan 11, 2024 09:53 AM NONVA NOTE: LOCAL TITLE: NON-VA MEDICAL RECORD SUMMARY STANDARD TITLE: NONVA NOTE DATE OF NOTE: JAN 11, 2024@09:53 ENTRY DATE: JAN 11, 2024@09:53:38 AUTHOR: TODD DANIELS COSIGNER: URGENCY: STATUS: COMPLETED COPIED & PASTED FROM [facility] NURSE NOTE [place] Nurse Date of Encounter: 01/08/2024 Author: Abigail Mares RN Dear Lenora Rojo MD, I have seen a mutual patient, Erich Kay ( 44) at his home for a wellness visit and dressing change. Today he also asked me to check his blood glucose POC because [facility] information. Jose's left food wound bed beefy red granulation tissue. Calloused bienvenido-wound area with redness in the upper bienvenido wound area. Slight serosanguinous drainage. The bienvenido-wound redness does not appear to be larger than my previous visits. I have instructed Jose to keep an eye on this area d/t his past infections. Jose does c/o some increased pain in his wound area this AM due to a 'very busy day yesterday'. He tells me he will rest his foot today. VS: 98.4 temporal, HR 100s, RR 20-24 (increased with ambulation), BP 142/77, O2 97% RA. Blood sugar POC 129 (fasting) this AM. I will see Jose again on , January 10. Thank you kindly, Abigail Mares RN, [facility] Nurse /kasia/ TODD DANIELS RN REGISTERED NURSE Signed: 01/11/2024 09:58 Receipt Acknowledged By: 01/11/2024 10:56 /kasia/ LENORA ROJO MD PHYSICIAN TODD DANIELS ([facility])
--- OUTSIDE RECORDS SUMMARY | 2024-08-07 12:20 | XMS_ITS ---
Author Name [facility] [place] [facility] [place] Address [address] [place] [address] Care Team Providers Care Nc Manager Name Role Phone LENORA DEJESUS Primary [...] Jul 31, 2014 MEDICAR E SUPPLEM E [id number] [phone] FR GAMALIEL KAY PATIENT [facility] MEDICARE SUPPLEMEN [facility] MEDIC ARE SUPP Jul 31, 2014 SUPP [id number] [phone] FR GAMALIEL KAY PATIENT MEDICARE (WNR) MEDICARE (M) PART A Jan 29, 2004 PART A [id number] [phone] FR GAMALIEL KAY PATIENT MEDICARE (WNR) MEDICARE (M) PART B Jan 29, 2004 PART B [id number] [phone] FR GAMALIEL KAY PATIENT [facility] (WNR) MEDICARE ADVANTAGE [facility] ([facility]) Jul 31, 2023 [id number] RAHULFR GAMALIEL MACHADO PATIENT [facility] MCR (WNR) MEDICARE ADVANTAGE MCR (WNR) Jul 31, 2023 [id number] [phone] FR GAMALIEL KAY PATIENT Selected Encounter This section includes the information on record at [place] for the Encounter. Date/Time Encounter Type Encounter Description Reason Pro vider Source December 11, 2023 12:00 AM Outpatient Encounter EVENT (HISTORICAL) IHE Encounter Template Text not used by [place] Plan of Treatment: Future Appointments (+ 6 months) and Future Tests (+/- 45 days) The Plan of Treatment section includes future care activities for the patient [facility] [place] [facility]. This section includes future appointments and future orders which are active, pending or scheduled. Future Appointments This section includes appointments that were scheduled to occur 6 months from the date of the Encounter, up to a maximum of 20 appointments. The data comes from all [facility]. Appointment Date/Time Appointment Type Appointme nt Facility Name December 20, 2023 09:00 AM AMBULATORY - MEDICINE [facility] [place] [facility] December 20, 2023 02:00 PM [facility] Jan 08, 2024 10:30 AM AMBULATORY - MEDICINE [facility] [place] [facility] Jan 11, 2024 01:00 PM AMBULATORY MEDICINE [facility] [place] [facility] Jan 30, 2024 01:00 PM AMBULATORY - MEDICINE [facility] [place] [facility] Mar 27, 2024 01:00 PM [facility] Apr 04, 2024 08:00 AM AMBULATORY - MEDICINE [facility] [place] [facility] May 15, 2024 02:00 PM [facility] Jun 12, 2024 11:00 AM [facility] Active, Pending, and Scheduled Orders This section includes a listing of several types of active, pending, and scheduled orders, including clinic medications orders, diagnostic test orders, procedure orders and consult orders; where the start date of the order is 45 days before the date of the Encounter or 45 days after the date of theEncounter. The data comes from all [facility]. Test Date/Time Test Type Test Details Facility Name 2023 01:37 PM Consult Order COMMUNITY CARE-NEUROLOGY Cons Culture Media Laboratory Assistant's Choice [facility] Encounter Notes: All associated encounter notes This section contains the clinical notes associated to the Encounter. Date/Time Encounter Note(s) Provider Source December 11, 2023 12:00 AM NONVA NOTE: LOCAL TITLE: NON-VA OUTPATIENT NOTES STANDARD TITLE: NONVA NOTE DATE OF NOTE: DECEMBER 11, 2023 ENTRY DATE: DECEMBER 27, 2023@11:31:09 AUTHOR: MIK LOPEZ EXP COSIGNER: URGENCY: STATUS: COMPLETED VistA Imaging - Scanned Document SCANNED DOCUMENT SIGNATURE NOT REQUIRED Electronically Filed: 12/27/2023 by: MIK PISANO [facility]
--- OUTSIDE RECORDS SUMMARY | 2024-08-07 12:20 | XMS_ITS | Encounter Summary ---
Author Name [facility] [place] Address [address] [place] [id number] Care Team Providers Care Concrete Craftsman Name Role Phone LENORA DEJESUS Primary Care [...] Jul 31, 2014 MEDICAR E SUPPLEM E [id number] [phone] FR RAHUL GAMALIEL PATIENT [facility] MEDICARE SUPPLEMEN [place]ANGEL[place] MEDIC ARE SUPP Jul 31, 2014 SUPP [id number] [phone] FR RAHUL GAMALIEL PATIENT MEDICARE (WNR) MEDICARE (M) PART A Jan 29, 2004 PART A [id number] [phone] RAHUL GAMALIEL PATIENT MEDICARE (WNR) MEDICARE (M) PART B Jan 29, 2004 PART B [id number] [phone] FR RAHUL GAMALIEL PATIENT [facility] (WNR) MEDICARE ADVANTAGE [facility] ([facility]) Jul 31, 2023 [id number] [phone] FR GAMALIEL KAY PATIENT [facility] (WNR) MEDICARE ADVANTAGE MCR (WNR) Jul 31, 2023 [id number] [phone] FR GAMALIEL KAY PATIENT Selected Encounter This section includes the information on record at [place] for the Encounter. Date/Time Encounter Type Encounter Description Reason Provider Source Jan 30, 2024 01:00 PM MTMS BY PHARM EST 15 MIN TELEPHONE PRIMARY CARE ICD-10-CM E11.9 Type 2 diabetes mellitus without complications RUEL CARPENTER Encounter Template Text not used by [place] Assessments - Encounter Diagnoses This section includes the primary and secondary diagnoses documented for the Encounter. Date/Time Primary/Secondary Diagnosis Diagnosis Name Provider Source Jan 30, 2024 01:00 PM PRIMARY Type 2 diabetes mellitus without complications RUEL CARPENTER ([facility]) Plan of Treatment: Future Appointments (+ 6 months) and Future Tests (+/- 45 days) The Plan of Treatment section includes future care activities for the patient from all [place] [facility]. This section includes future appointments and future orders which are active, pending or scheduled. Future Appointments This section includes appointments that were scheduled to occur 6 months from the date of the Encounter, up to a maximum of 20 appointments. The data comes from all [place] treatment facilities. Appointment Date/Time Appointment Type Appointme nt Facility Name Mar 27, 2024 01:00 PM AMBULATORY - MEDICINE [facility] ([facility]) Apr 04, 2024 08:00 AM AMBULATORY - MEDICINE [facility] [place] [place] [facility] May 15, 2024 02:00 PM AMBULATORY - MEDICINE [facility] ([facility]) Jun 12, 2024 11:00 AM AMBULATORY - MEDICINE [facility] ([facility]) Jun 19, 2024 01:00 PM AMBULATORY - MEDICINE [facility] [place] [place] [facility] Jun 25, 2024 02:30 PM AMBULATORY - MEDICINE [facility] [place] [facility] Jul 30, 2024 03:30 PM AMBULATORY - MEDICINE [facility] ([facility]) Social History: Smoking Status (Most current) and Tobacco Use (All prior to encounter date) This section includes the most current, and the historical, smoking and tobacco- related health factors from the [place] facility where the Encounter took place. Current Smoking Status This section includes the most current smoking, or tobacco-related health factor, from the [place] facility where the Encounter took place. Date/Time Current Smoking Status Comment Jo william Sep 22, 2023 01:00 PM VA-TOBACCO NEVER USED [facility] ([facility]) Tobacco Use History This section includes a history of the smoking, or tobacco-related health factors, that were collected on or before the date of the Encounter. The data comes from the [place] facility where the Encounter took place. Date/Time [...] the Encounter. Date/Time Encounter Note(s) Provider Source Feb 26, 2024 03:02 PM ADDENDUM: LOCAL TITLE: Addendum STANDARD TITLE: ADDENDUM DATE OF NOTE: FEB 26, 2024@15:02:43 ENTRY DATE: FEB 26, 2024@15:02:44 AUTHOR: TODD DANIELS EXP COSIGNER: URGENCY: STATUS: COMPLETED wanted to let CPP know that the new diabetes medication (sitagliptin) was causing him a lot of joint pain, shoulders, knees, all over . went back to taking glimepiride and pain has been improving. /kasia/ TODD DANIELS, RN REGISTERED NURSE Signed: 02/26/2024 15:03 Receipt Acknowledged By: 02/29/2024 16:37 /es/ Rachel Carpenter PharmD Clinical Tool Grinder Set Up Operator Gear --- Original Document --- 01/30/24 TELEPHONE NOTE/PHARMACY: Called pt to obtain BG readings. Pt was last called on 01/08/24, at which point glimepiride 2mg qAM was discontinued. Today, pt reports he ended up restarting glimepiride 2mg qAM shortly after d/c'ing it per last visit. He saw his BG reading had increased to 184 one morning, which is why he decided to resume the GRIGGS. 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 SMBG: pt unable to SMBG independently due to bad hand tremors. Recent FBG from [facility] test[facility], 184 Diet Patterns: patient eats on avg. 2-3x/day: Wake: 5-6am B: 9-10am; eggs & homefries w/ juice or coffee; L: 12-1pm; sometimes skips; Vietnamese takeout; baked beans, PBJ, ham and cheese [...] (6.6% on 09/13/23) - Medication management - DISCONTINUE glimepiride 2mg qAM - INITIATE sitagliptin 100mg daily - Reviewed rationale for d/c'ing GRIGGS as A1c is well controlled and to avoid risk of hypoglycemia in elderly pt with PD/high fall risk - Note: past trial of metformin SA resulted in intolerable GI AEs - Continue to SMBG 2x/week - [facility] tests his BG during home visits - Monitor for s/sx hypoglycemia and contact clinic if BG consistently <70mg/dL - Healthy dietary and lifestyle modifications encouraged - Repeat A1c: Feb 2024 (prior to f/u) Clinic's Next Scheduled Follow-up: 04/08/24 @1530 *phone clinic* Time Spent: 15 minutes PBM PharmD Pharmacotherapy Rem V12: PHARMACIST INTERVENTIONS: TYPE 2 DIABETES MELLITUS Medication Intervention(s) Discontinue and/or change to different medication Discontinue and/or change to different medication due to other reason Medication reconciliation (changes to active VA and non-VA medication lists to reconcile differences) No changes to medication lists made (medication review completed, no discrepancies identified) /kasia/ Rachel Carpenter PharmD Clinical Tool Grinder Set Up Operator Gear Signed: 01/30/2024 13:20 TODD DANIELS (CB) Jan 30, 2024 01:00 PM PHARMACY TELEPHONE ENCOUNTER NOTE: LOCAL TITLE: TELEPHONE NOTE/PHARMACY STANDARD TITLE: PHARMACY TELEPHONE ENCOUNTER NOTE DATE OF NOTE: JAN 30, 2024@13:00 ENTRY DATE: JAN 30, 2024@10:50:05 AUTHOR: RACHEL CARPENTER EXP COSIGNER: URGENCY: STATUS: COMPLETED TELEPHONE NOTE/PHARMACY Has ADDENDA Called pt to obtain BG readings. Pt was last called on 01/08/24, at which point glimepiride 2mg qAM was discontinued. Today, pt reports he ended up restarting glimepiride 2mg qAM shortly after d/c'ing it per last visit. He saw his BG reading had increased to 184 one morning, which is why he decided to resume the GRIGGS. 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 SMBG: pt unable to SMBG independently due to bad hand tremors. Recent FBG from [facility] test[facility], 184 Diet Patterns: patient eats on avg. 2-3x/day: Wake: 5-6am B: 9-10am; eggs & homefries w/ juice or coffee; L: 12-1pm; sometimes skips; Vietnamese takeout; baked beans, PBJ, ham and cheese [...] (6.6% on 09/13/23) - Medication management - DISCONTINUE glimepiride 2mg qAM - INITIATE sitagliptin 100mg daily - Reviewed rationale for d/c'ing GRIGGS as A1c is well controlled and to avoid risk of hypoglycemia in elderly pt with PD/high fall risk - Note: past trial of metformin SA resulted in intolerable GI AEs - Continue to SMBG 2x/week - [facility] tests his BG during home visits - Monitor for s/sx hypoglycemia and contact clinic if BG consistently <70mg/dL - Healthy dietary and lifestyle modifications encouraged - Repeat A1c: Feb 2024 (prior to f/u) Clinic's Next Scheduled Follow-up: 04/08/24 @1530 *phone clinic* Time Spent: 15 minutes PBM PharmD Pharmacotherapy Rem V12: PHARMACIST INTERVENTIONS: TYPE 2 DIABETES MELLITUS Medication Intervention(s) Discontinue and/or change to different medication Discontinue and/or change to different medication due to other reason Medication reconciliation (changes to active VA and non-VA medication lists to reconcile differences) No changes to medication lists made (medication review completed, no discrepancies identified) /kasia/ Rachel Carpenter PharmD Clinical Tool Grinder Set Up Operator Gear Signed: 01/30/2024 13:20 02/26/2024 ADDENDUM STATUS: COMPLETED wanted to let CPP know that the new diabetes medication (sitagliptin) was causing him a lot of joint pain, shoulders, knees, all over . [place] went back to taking glimepiride and pain has been improving. /kasia/ TODD DANIELS RN REGISTERED NURSE Signed: 02/26/2024 15:03 Receipt Acknowledged By: 02/29/2024 16:37 /kasia/ Rachel Carpenter PharmD Clinical Tool Grinder Set Up Operator Gear 08/06/2024 ADDENDUM STATUS: COMPLETED patient scheduled for 2/3 at 3:30 via tele /kasia/ FRANCY CORONA Clinical Gauge Controller Signed: 08/06/2024 15:48 RACHEL CARPENTER ([place])
--- OUTSIDE RECORDS SUMMARY | 2024-08-07 12:20 | XMS_ITS ---
Author Name [place] Address [address] [place] [address] Care Team Providers Care Ncr Operator Name Role Phone LENORA DEJESUS Primary [...] Jul 31, 2014 MEDICAR E SUPPLEM E [id number] [phone] FR GAMALIEL KAY PATIENT [facility] MEDICARE SUPPLEMEN [place]EL[place] MEDIC ARE SUPP Jul 31, 2014 SUPP [id number] [phone] FR GAMALIEL KAY PATIENT MEDICARE (WNR) MEDICARE (M) PART A Jan 29, 2004 PART A [id number] [phone] FR GAMALIEL KAY PATIENT MEDICARE (WNR) MEDICARE (M) PART B Jan 29, 2004 PART B [id number] [phone] FR GAMALIEL KAY PATIENT [facility] (WNR) MEDICARE ADVANTAGE [facility] ([facility]) Jul 31, 2023 [id number] [phone] RAHULFR GAMALIEL MACHADO PATIENT [facility] MCR (WNR) MEDICARE ADVANTAGE MCR (WNR) Jul 31, 2023 [id number] [phone] FR GAMALIEL KAY PATIENT Selected Encounter This section includes the information on record at [place] for the Encounter. Date/Time Encounter Type Encounter Description Reason Pro vider Source December 09, 2023 12:00 AM Outpatient Encounter EVENT (HISTORICAL) IHE Encounter Template Text not used by [place] Plan of Treatment: Future Appointments (+ 6 months) and Future Tests (+/- 45 days) The Plan of Treatment section includes future care activities for the patient from all [place] [facility]. This section includes future appointments and future orders which are active, pending or scheduled. Future Appointments This section includes appointments that were scheduled to occur 6 months from the date of the Encounter, up to a maximum of 20 appointments. The data comes from all [facility]. Appointment Date/Time Appointment Type Appointme nt Facility Name December 11, 2023 10:30 AM AMBULATORY - MEDICINE [facility] [place] [facility] December 20, 2023 09:00 AM AMBULATORY - MEDICINE [facility] [place] [facility] December 20, 2023 02:00 PM AMBULATORY - [facility] Jan 08, 2024 10:30 AM AMBULATORY - MEDICINE [facility] [place] [facility] Jan 11, 2024 01:00 PM AMBULATORY MEDICINE [facility] [place] [facility] Jan 30, 2024 01:00 PM AMBULATORY - MEDICINE [facility] [place] [facility] Mar 27, 2024 01:00 PM AMBULATORY - MEDICINE [facility] Apr 04, 2024 08:00 AM AMBULATORY - MEDICINE [facility] [place] [facility] May 15, 2024 02:00 PM AMBULATORY - MEDICINE [facility] ([facility]) Active, Pending, and Scheduled Orders This section includes a listing of several types of active, pending, and scheduled orders, including clinic medications orders, diagnostic test orders, procedure orders and consult orders; where the start date of the order is 45 days before the date of the Encounter or 45 days after the date of theEncounter. The data comes from all [facility]. Test Date/Time Test Type Test Details Facility Name 2023 01:37 PM Consult Order COMMUNITY CARE-NEUROLOGY Cons Lap Winding Machine Operator's Choice [place] [facility] [place] [facility] Encounter Notes: All associated encounter notes This section contains the clinical notes associated to the Encounter. Date/Time Encounter Note(s) Provider Source December 09, 2023 12:00 AM NONVA NOTE: LOCAL TITLE: NON-[facility] STANDARD TITLE: NONVA NOTE DATE OF NOTE: DECEMBER 09, 2023 ENTRY DATE: JAN 09, 2024@11:17:33 AUTHOR: MAYANK MCCORMACK EXP COSIGNER: URGENCY: STATUS: COMPLETED VistA Imaging - Scanned Document SCANNED DOCUMENT SIGNATURE NOT REQUIRED Electronically Filed: 01/09/2024 by: DONTE MCCORMACK Nuclear Medicine Physician DONTE MCCORMACK [place] [facility] [place] [facility] December 09, 2023 12:00 AM NONVA NOTE: LOCAL TITLE: NON-[facility] STANDARD TITLE: NONVA NOTE DATE OF NOTE: DECEMBER 09, 2023 ENTRY DATE: FEB 22, 2024@07:39:04 AUTHOR: MIK LOPEZ EXP COSIGNER: URGENCY: STATUS: COMPLETED VistA Imaging - Scanned Document SCANNED DOCUMENT SIGNATURE NOT REQUIRED Electronically Filed: 02/22/2024 by: MIK PISANO [place] [facility]
--- OUTSIDE RECORDS SUMMARY | 2024-08-07 12:20 | XMS_ITS ---
Author Name [place] Address [address] [place] [address] Care Team Providers Care Rocket Motor Tester Name Role Phone LENORA DEJESUS Primary Care [...] Jul 31, 2014 MEDICAR E SUPPLEM E [id number] [phone] FR GAMALIEL KAY PATIENT [facility] MEDICARE SUPPLEMEN [place] MEDIC ARE SUPP Jul 31, 2014 SUPP [id number] [phone] FR GAMALIEL KAY PATIENT MEDICARE (WNR) MEDICARE (M) PART A Jan 29, 2004 PART A [id number] [phone] FR GAMALIEL KAY PATIENT MEDICARE (WNR) MEDICARE (M) PART B Jan 29, 2004 PART B [id number] [phone] FR GAMALIEL KAY PATIENT [facility] (WNR) MEDICARE ADVANTAGE [facility] ([facility]) Jul 31, 2023 [id number] [phone] FR GAMALIEL KAY PATIENT [facility] (WNR) MEDICARE ADVANTAGE [facility] (WNR) Jul 31, 2023 [id number] [phone] FR GAMALIEL KAY PATIENT Selected Encounter This section includes the information on record at [place] for the Encounter. Date/Time Encounter Type Encounter Description Reason Pro vider Source Jan 11, 2024 12:00 AM Outpatient Encounter EVENT (HISTORICAL) IHE Encounter Template Text not used by CT Plan of Treatment: Future Appointments (+ 6 months) and Future Tests (+/- 45 days) The Plan of Treatment section includes future care activities for the patient from all [place] treatmentfacilities. This section includes future appointments and future orders which are active, pending or scheduled. Future Appointments This section includes appointments that were scheduled to occur 6 months from the date of the Encounter, up to a maximum of 20 appointments. The data comes from all [place] treatment facilities. Appointment Date/Time Appointment Type Appointme nt Facility Name Jan 30, 2024 01:00 PM AMBULATORY - MEDICINE [facility] [place] [place] [facility] Mar 27, 2024 01:00 PM AMBULATORY - MEDICINE [facility]) Apr 04, 2024 08:00 AM AMBULATORY - MEDICINE [facility] [place] [facility] May 15, 2024 02:00 PM AMBULATORY - MEDICINE [facility] ([facility]) Jun 12, 2024 11:00 AM AMBULATORY - MEDICINE [facility] Jun 19, 2024 01:00 PM AMBULATORY - MEDICINE [facility] [place] [place] [facility] Jun 25, 2024 02:30 PM AMBULATORY - [facility]IC[facility] Encounter Notes: All associated encounter notes This section contains the clinical notes associated to the Encounter. Date/Time Encounter Note(s) Provider Source Jan 11, 2024 12:00 AM NONVA NOTE: LOCAL TITLE: NON-VA OUTPATIENT NOTES STANDARD TITLE: NONVA NOTE DATE OF NOTE: JAN 11, 2024 ENTRY DATE: JAN 25, 2024@10:32:41 AUTHOR: MIK LOPEZ EXP COSIGNER: URGENCY: STATUS: COMPLETED VistA Imaging - Scanned Document SCANNED DOCUMENT SIGNATURE NOT REQUIRED Electronically Filed: 01/25/2024 by: MIK PISANO [facility] [place] [facility] Jan 11, 2024 12:00 AM NONVA CONSULT: LOCAL TITLE: COMMUNITY CARE-CONSULT RESULT NOTE STANDARD TITLE: NONVA CONSULT DATE OF NOTE: JAN 11, 2024 ENTRY DATE: APR 12, 2024@08:25:37 AUTHOR: THANH MARCELO EXP COSIGNER: URGENCY: STATUS: COMPLETED VistA Imaging - Scanned Document SCANNED DOCUMENT SIGNATURE NOT REQUIRED Electronically Filed: 04/12/2024 by: THANH CARTER [place] [facility] [place] [facility]
--- OUTSIDE RECORDS SUMMARY | 2024-08-07 12:20 | XMS_ITS ---
Author Name [facility] [place] Organization [place] Address [address] [place] [address] Care Team Providers Care Nail Technician Teacher Name Role Phone LENORA ROJO Primary [...] Jul 31, 2014 MEDICAR E SUPPLEM E [id number] [phone] FR GAMALIEL KAY PATIENT [facility] MEDICARE SUPPLEMEN [place] MEDIC ARE SUPP Jul 31, 2014 SUPP [id number] [phone] FR GAMALIEL KAY PATIENT MEDICARE (WNR) MEDICARE (M) PART A Jan 29, 2004 PART A [id number] [phone] FR GAMALIEL KAY PATIENT MEDICARE (WNR) MEDICARE (M) PART B Jan 29, 2004 PART B [id number] [phone] FR GAMALIEL KAY PATIENT [facility] (WNR) MEDICARE ADVANTAGE [facility] ([facility]) Jul 31, 2023 [id number] [phone] RAHULFR GAMALIEL MACHADO PATIENT [facility] (WNR) MEDICARE ADVANTAGE MCR (WNR) Jul 31, 2023 [id number] [phone] FR GAMALIEL KAY PATIENT Selected Encounter This section includes the information on record at [place] for the Encounter. Date/Time Encounter Type Encounter Description Reason Pro vider Source Feb 09, 2024 01:11 PM Outpatient Encounter PRIMARY CARE/MEDICINE IHE Encounter Template Text not used by [place] Plan of Treatment: Future Appointments (+ 6 months) and Future Tests (+/- 45 days) The Plan of Treatment section includes future care activities for the patient from all [place] treatmentfacilities. This section includes future appointments and future orders which are active, pending or scheduled. Future Appointments This section includes appointments that were scheduled to occur 6 months from the date of the Encounter, up to a maximum of 20 appointments. The data comes from all [place] treatment facilities. Appointment Date/Time Appointment Type Appointme nt Facility Name Mar 27, 2024 01:00 PM [facility]) Apr 04, 2024 08:00 AM AMBULATORY - MEDICINE [facility] [place] [facility] May 15, 2024 02:00 PM [facility] Jun 12, 2024 11:00 AM [facility] Jun 19, 2024 01:00 PM AMBULATORY - MEDICINE [facility] [place] [facility] Jun 25, 2024 02:30 PM AMBULATORY - MEDICINE [facility] [place] [facility] Jul 30, 2024 03:30 PM [facility] ([facility]) Aug 07, 2024 01:00 PM AMBULATORY - MEDICINE [facility] [place] [facility] Encounter Notes: All associated encounter notes This section contains the clinical notes associated to the Encounter. Date/Time Encounter Note(s) Provider Source Feb 09, 2024 01:11 PM NONVA NOTE: LOCAL TITLE: NON-VA MEDICAL RECORD SUMMARY STANDARD TITLE: NONVA NOTE DATE OF NOTE: FEB 09, 2024@13:11 ENTRY DATE: FEB 09, 2024@13:11:09 AUTHOR: TODD DANIELS COSIGNER: URGENCY: STATUS: COMPLETED COPIED & PASTED FROM [facility] NURSE NOTE [place] Nurse Date of Encounter: 02/05/2024 Author: Abigail Mares RN Dear Lenora Rojo MD, I have seen a mutual patient, Erich Kay ( 44) at his home for a wellness visit and dressing change. Today he also asked me to check his blood glucose POC. Jose's left foot wound bed had beefy red granulation tissue surrounded by a large calloused bienvenido-wound area. There was a significant amount of redness in the upper bienvenido-wound area- which Jose attributes to the constant pressure on that prominence when his shoes are on. Jose's inner left foot was quite painful to touch and while walking. The redness was not warm. Slight serosanguinous drainage noted with dressing change. I have instructed Jose to keep an eye on this area d/t his past infections. His wound was washed with Dakin's and a DSD was applied. Jose will go to the wound clinic this Monday and will get new wound care orders which will he adhered to. VS: 97.6 tympanic, HR 90s-100s, RR 20, BP 129/72, O2 95% RA. Blood sugar POC 207 (non-fasting) this AM. I will see Jose again next MondayFebruary 11. Thank you kindly /kasia/ TODD DANIELS RN REGISTERED NURSE Signed: 02/09/2024 13:15 Receipt Acknowledged By: 02/09/2024 16:15 /kasia/ LENORA ROJO MD PHYSICIAN TODD DANIELS ([facility])
--- OUTSIDE RECORDS SUMMARY | 2024-08-07 12:20 | XMS_ITS ---
Author Name [place] Address [address] [place] [address] Care Team Providers Care Men'S Leather Dress Belt Maker Name Role Phone LENORA DEJESUS Primary Care [...] Jul 31, 2014 MEDICAR E SUPPLEM E [id number] [phone] FR GAMALIEL KAY PATIENT [facility] MEDICARE SUPPLEMEN EVANGELISTA MEDIC ARE SUPP Jul 31, 2014 SUPP [id number] [phone] FR GAMALIEL KAY PATIENT MEDICARE (WNR) MEDICARE (M) PART A Jan 29, 2004 PART A [id number] [phone] FR GAMALIEL KAY PATIENT MEDICARE (WNR) MEDICARE (M) PART B Jan 29, 2004 PART B [id number] [phone] FR GAMALIEL KAY PATIENT [facility] (WNR) MEDICARE ADVANTAGE [facility] ([facility]) Jul 31, 2023 [id number] RAHULFR GAMALIEL MACHADO PATIENT [facility] MCR (WNR) MEDICARE ADVANTAGE MCR (WNR) Jul 31, 2023 [id number] [id number] FR GAMALIEL KAY PATIENT Selected Encounter This section includes the information on record at [place] for the Encounter. Date/Time Encounter Type Encounter Description Reason Pro vider Source Jan 08, 2024 12:00 AM Outpatient Encounter EVENT (HISTORICAL) [...] Appointment Type Appointme nt Facility Name Jan 11, 2024 01:00 PM AMBULATORY - MEDICINE [place] [facility] [place] [facility] Jan 30, 2024 01:00 PM AMBULATORY - MEDICINE [place] [facility] [place] [place] [facility] Mar 27, 2024 01:00 PM AMBULATORY - MEDICINE [facility] ([facility]) Apr 04, 2024 08:00 AM AMBULATORY - MEDICINE [place] [facility] [place] [facility] May 15, 2024 02:00 PM AMBULATORY - MEDICINE [facility] ([facility]) Jun 12, 2024 11:00 AM AMBULATORY - MEDICINE [facility] ([facility]) Jun 19, 2024 01:00 PM AMBULATORY - MEDICINE [place] [facility] [place] [facility] Jun 25, 2024 02:30 PM AMBULATORY - MEDICINE [place] [facility] [place] [facility] Encounter Notes: All associated encounter notes This section contains the clinical notes associated to the Encounter. Date/Time Encounter Note(s) Provider Source Jan 08, 2024 12:00 AM NONVA NOTE: LOCAL TITLE: NON-VA OUTPATIENT NOTES STANDARD TITLE: NONVA NOTE DATE OF NOTE: JAN 08, 2024 ENTRY DATE: JAN 24, 2024@09:39:08 AUTHOR: MIK LOPEZ COSIGNER: URGENCY: STATUS: COMPLETED VistA Imaging - Scanned Document SCANNED DOCUMENT SIGNATURE NOT REQUIRED Electronically Filed: 01/24/2024 by: MIK PISANO CNTRL [facility]
--- OUTSIDE RECORDS SUMMARY | 2024-08-07 12:20 | XMS_ITS ---
Author Name Department [place] Address [address] [place] [address] Care Team Providers Care Ehr Trainer Name Role Phone LENORA DEJESUS Primary Care [...] Policy Welsh's Name Patient's Relationship to Policy Weslh [facility] MEDICARE SUPPLEMEN EVANGELISTA MA IND Jul 31, 2014 MEDICAR E SUPPLEM E [id number] [phone] FR GAMALIEL KAY PATIENT [facility] MEDICARE SUPPLEMEN [place] MEDIC ARE SUPP Jul 31, 2014 SUPP [id number] [phone] FR GAMALIEL KAY PATIENT MEDICARE (WNR) MEDICARE (M) PART A Jan 29, 2004 PART A [id number] [phone] FR GAMALIEL KAY PATIENT MEDICARE (WNR) MEDICARE (M) PART B Jan 29, 2004 PART B [id number] [phone] FR GAMALIEL KAY PATIENT [facility] (WNR) MEDICARE ADVANTAGE [facility] (R) Jul 31, 2023 [id number] RAHULFR GAMALIEL MACHADO PATIENT [facility] MCR (WNR) MEDICARE ADVANTAGE [facility] (WNR) Jul 31, 2023 [id number] [phone] FR GAMALIEL KAY PATIENT Selected Encounter This section includes the information on record at [place] for the Encounter. Date/Time Encounter Type Encounter Description Reason Pro vider Source Feb 16, 2024 09:11 AM Outpatient Encounter COMMUNITY CARE CONSULT IHE Encounter Template Text not used by VA Plan of Treatment: Future Appointments (+ 6 months) and Future Tests (+/- 45 days) The Plan of Treatment section includes future care activities for the patient from all [place] treatmentfacilities. This section includes future appointments and future orders which are active, pending or scheduled. Future Appointments This section includes appointments that were scheduled to occur 6 months from the date of the Encounter, up to a maximum of 20 appointments. The data comes from all [place] treatment facilities. Appointment Date/Time Appointment Type Appointme nt Facility Name Mar 27, 2024 01:00 PM [facility] Apr 04, 2024 08:00 AM AMBULATORY - MEDICINE [place] [facility] [place] [facility] May 15, 2024 02:00 PM [facility] ([facility]) Jun 12, 2024 11:00 AM AMBULATORY - MEDICINE [facility] ([facility]) Jun 19, 2024 01:00 PM AMBULATORY - MEDICINE [place] [facility] [place] [facility] Jun 25, 2024 02:30 PM AMBULATORY - MEDICINE [place] [facility] [place] [facility] Jul 30, 2024 03:30 PM [facility] ([facility] Aug 07, 2024 01:00 PM AMBULATORY - MEDICINE [place] [facility] [place] [facility] Aug 14, 2024 10:00 AM AMBULATORY - NONE [place] [facility] Encounter Notes: All associated encounter notes This section contains the clinical notes associated to the Encounter. Date/Time Encounter Note(s) Provider Source Feb 16, 2024 09:11 AM NONVA NOTE: LOCAL TITLE: COMMUNITY CARE-JONATHAN SELF PRESENTING CARE COORD PLAN STANDARD TITLE: NONVA NOTE DATE OF NOTE: FEB 16, 2024@09:11 ENTRY DATE: FEB 16, 2024@09:11:07 AUTHOR: SADLER,NNAMDI NATALIIA EXP COSIGNER: URGENCY: STATUS: COMPLETED Emergency Notification Intake Date Presenting to the Facility: Jan Method of Contact: Notified from ECR worklist Notification ID: [id number] [facility] Referral #: [id number] [facility] Name: Hospital: [facility] Address: City: [place] State: [place] Zip Code: Phone : Community Facility Point of Contact: Name: Bonny Phone: Chief complaint: E11.628 Primary Diagnosis: Disposition Admitted Route of Admission: ER Date of Admission: Jan Admitting Diagnosis: E11.628 [facility] Provider: Sree Level of Care: /es/ NNAMDI MEJIAS Signed: 02/16/2024 09:12 Receipt Acknowledged By: 02/16/2024 11:34 /es/ FRANCY MURO, RN REGISTERED NURSE for TODD DANIELS * AWAITING SIGNATURE * HARINDER HOU 02/16/2024 10:13 /es/ LENORA DEJESUS MD PHYSICIAN * AWAITING SIGNATURE * CLARKE MEDRANO * AWAITING SIGNATURE * BRADFORD MORENO * AWAITING SIGNATURE * MALI BAHENA DAWN MARIE COAMO
--- OUTSIDE RECORDS SUMMARY | 2024-08-07 12:20 | XMS_ITS | Encounter Summary ---
Author Name Department [place] Organization [place] Address [address] [place] [address] Care Team Providers Care Agricultural Chemicals Inspector Name Role Phone LENORA DEJESUS Primary Care [...] Jul 31, 2014 MEDICAR E SUPPLEM E [phone] FR GAMALIEL KAY PATIENT [facility] MEDICARE SUPPLEMEN EVANGELISTA MEDIC ARE SUPP Jul 31, 2014 SUPP [id number] [phone] FR GAMALIEL KAY PATIENT MEDICARE (WNR) MEDICARE (M) PART A Jan 29, 2004 PART A [id number] [phone] FR GAMALIEL KAY PATIENT MEDICARE (WNR) MEDICARE (M) PART B Jan 29, 2004 PART B [id number] [phone] FR GAMALIEL KAY PATIENT [facility] (WNR) MEDICARE ADVANTAGE [facility] ([facility] Jul 31, 2023 [id number] [phone] FR GAMALIEL KAY PATIENT [facility] MCR (WNR) MEDICARE ADVANTAGE [facility] (WNR) Jul 31, 2023 [id number] [phone] FR GAMALIEL KAY PATIENT Selected Encounter This section includes the information on record at [place] for the Encounter. Date/Time Encounter Type Encounter Description Reason Pro vider Source December 14, 2023 12:00 AM Outpatient Encounter EVENT (HISTORICAL) [...] 20, 2023 09:00 AM AMBULATORY - MEDICINE [place] [facility] December 20, 2023 02:00 PM [facility] Jan 08, 2024 10:30 AM AM[facility]UL[facility] - [facility] [place] [facility] Jan 11, 2024 01:00 PM AMBULATORY - MEDICINE [place] [facility] [place] [facility] Jan 30, 2024 01:00 PM AMBULATORY - MEDICINE [place] [facility] [place] [facility] Mar 27, 2024 01:00 PM [facility]UL[facility] Apr 04, 2024 08:00 AM AMBULATORY - MEDICINE [place] [facility] [place] [facility] May 15, 2024 02:00 PM AM[facility]ULATORY - [facility] Jun 12, 2024 11:00 AM [facility] Encounter Notes: All associated encounter notes This section contains the clinical notes associated to the Encounter. Date/Time Encounter Note(s) Provider Source December 14, 2023 12:00 AM NONVA NOTE: LOCAL TITLE: NON-VA OUTPATIENT NOTES STANDARD TITLE: NONVA NOTE DATE OF NOTE: DECEMBER 14, 2023 ENTRY DATE: DECEMBER 27, 2023@11:29:24 AUTHOR: MIK LOPEZ EXP COSIGNER: URGENCY: STATUS: COMPLETED VistA Imaging - Scanned Document SCANNED DOCUMENT SIGNATURE NOT REQUIRED Electronically Filed: 12/27/2023 by: MIK PISANO CNTR[facility]
--- OUTSIDE RECORDS SUMMARY | 2024-08-07 12:20 | XMS_ITS | Encounter Summary ---
Author Name Department [place] Organization [place] Address [address] [place] [address] Care Team Providers Care Charging Operator Name Role Phone LENORA ROJO Primary Care [...] Jul 31, 2014 MEDICAR E SUPPLEM E [id number] [phone] FR GAMALIEL KAY PATIENT [facility] MEDICARE SUPPLEMEN [place]EL[place] MEDIC ARE SUPP Jul 31, 2014 SUPP [id number] [phone] FR GAAMLIEL KAY PATIENT MEDICARE (WNR) MEDICARE (M) PART A Jan 29, 2004 PART A [id number] [phone] FR GAMALIEL KAY PATIENT MEDICARE (WNR) MEDICARE (M) PART B Jan 29, 2004 PART B [id number] [phone] FR GAMALIEL KAY PATIENT [facility] (WNR) MEDICARE ADVANTAGE [facility] ([facility]) Jul 31, 2023 [id number] [phone] FR GAMALIEL KAY PATIENT [facility] (WNR) MEDICARE ADVANTAGE [facility] (WNR) Jul 31, 2023 [id number] [phone] FR GAMALIEL KAY PATIENT Selected Encounter This section includes the information on record at [place] for the Encounter. Date/Time Encounter Type Encounter Description Reason Pro vider Source Jan 12, 2024 04:19 PM Outpatient Encounter PRIMARY CARE/MEDICINE IHE Encounter [...] 30, 2024 01:00 PM AMBULATORY - MEDICINE [facility] [place] [facility] Mar 27, 2024 01:00 PM AMBULATORY - MEDICINE [facility] ([facility]) Apr 04, 2024 08:00 AM AMBULATORY - MEDICINE [facility] [place] [facility] May 15, 2024 02:00 PM AMBULATORY - MEDICINE [facility] ([facility]) Jun 12, 2024 11:00 AM AMBULATORY - MEDICINE [facility] ([facility]) Jun 19, 2024 01:00 PM AMBULATORY - MEDICINE [facility] [place] [facility] Jun 25, 2024 02:30 PM AMBULATORY - MEDICINE [facility] [place] [facility] Encounter Notes: All associated encounter notes This section contains the clinical notes associated to the Encounter. Date/Time Encounter Note(s) Provider Source Jan 12, 2024 04:19 PM NONVA NOTE: LOCAL TITLE: NON-VA MEDICAL RECORD SUMMARY STANDARD TITLE: NONVA NOTE DATE OF NOTE: JAN 12, 2024@16:19 ENTRY DATE: JAN 12, 2024@16:19:33 AUTHOR: TODD DANIELS COSIGNER: URGENCY: STATUS: COMPLETED COPIED & PASTED FROM [facility] NURSE NOTE [place] Nurse Date of Encounter: 01/11/2024 Author: Abigail Mares RN January 11, 2024 Dear Lenora Rojo MD, I have seen a mutual patient, Erich Kay ( 44) at his home for a wellness visit and dressing change. Today he also asked me to check his blood glucose POC again because the [facility] phannacist directed him to stop his Diabetic medications for the time being and per patient see how it goes . Jose's left foot wound bed had beefy red granulation tissue. Calloused bienvenido- wound area with redness in the upper and lower bienvenido wound area. Slight serosanguinous drainage. The bienvenido?wound redness does not appear to be larger than my previous visits. I have instructed Jose to keep an eye on this area d/t his past infections. Jose does c/o of some continued pain in his wound area due to 'being on my feet a lot lately'. He tells me he will try to stay off his foot as much as possible today. Jose was seen yesterday January 09 by the wound clinic for his weekly evaluati.on. 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 VS:98.l temporal, HR l00s, RR 20-24 (increased with ambulation), BP 119/77, 02 98%RA. Blood sugar POC 185 (fasting) this AM I will see Jose again on MondayJanuary 14. /kasia/ TODD DANIELS RN REGISTERED NURSE Signed: 01/12/2024 16:22 Receipt Acknowledged By: 01/17/2024 11:54 /kasia/ LENORA ROJO MD PHYSICIAN TODD DANIELS ([facility])
--- OUTSIDE RECORDS SUMMARY | 2024-08-07 12:20 | XMS_ITS ---
Author Name [place] Address [address] [place] [address] Care Team Providers Care Foaming Machine Operator Name Role Phone LENORA DEJESUS [...] Jul 31, 2014 MEDICAR E SUPPLEM E [id number] [phone] FR GAMALIEL KAY PATIENT [facility] MEDICARE SUPPLEMEN [place]ANGELIST[place] MEDIC ARE SUPP Jul 31, 2014 SUPP [id number] [phone] FR GAMALIEL KAY PATIENT MEDICARE (WNR) MEDICARE (M) PART A Jan 29, 2004 PART A [id number] [phone] FR GAMALIEL KAY PATIENT MEDICARE (WNR) MEDICARE (M) PART B Jan 29, 2004 PART B [id number] [phone] FR GAMALIEL KAY PATIENT [facility] (WNR) MEDICARE ADVANTAGE [facility] (R) Jul 31, 2023 [id number] [id number] GAMALIEL MACHADO PATIENT [facility] MCR (WNR) MEDICARE ADVANTAGE MCR (WNR) Jul 31, 2023 [id number] [phone] FR GAMALIEL KAY PATIENT Selected Encounter This section includes the information on record at [place] for the Encounter. Date/Time Encounter Type Encounter Description Reason Pro vider Source December 27, 2023 12:00 AM Outpatient Encounter COMMUNITY CARE CONSULT IHE [...] Appointment Type Appointme nt Facility Name Jan 08, 2024 10:30 AM AMBULATORY - MEDICINE [place] [facility] Jan 11, 2024 01:00 PM AMBULATORY - MEDICINE [place] [facility] Jan 30, 2024 01:00 PM AMBULATORY - MEDICINE [place] [facility] Mar 27, 2024 01:00 PM AMBULATORY - MEDICINE [facility] ([facility]) Apr 04, 2024 08:00 AM AMBULATORY - MEDICINE [place] [facility] May 15, 2024 02:00 PM AMBULATORY - MEDICINE [facility] ([facility]) Jun 12, 2024 11:00 AM AMBULATORY - MEDICINE [facility] ([facility]) Jun 19, 2024 01:00 PM AMBULATORY - MEDICINE [place] [facility] Jun 25, 2024 02:30 PM AMBULATORY - MEDICINE [place] [facility] Encounter Notes: All associated encounter notes This section contains the clinical notes associated to the Encounter. Date/Time Encounter Note(s) Provider Source December 27, 2023 12:00 AM NONVA CONSULT: LOCAL TITLE: COMMUNITY CARE-CONSULT RESULT NOTE STANDARD TITLE: NONVA CONSULT DATE OF NOTE: DECEMBER 27, 2023 ENTRY DATE: JAN 04, 2024@06:09:55 AUTHOR: HUARD,MIK R EXP COSIGNER: URGENCY: STATUS: COMPLETED VistA Imaging - Scanned Document SCANNED DOCUMENT SIGNATURE NOT REQUIRED Electronically Filed: 01/04/2024 by: MIK PISANO [facility]
--- OUTSIDE RECORDS SUMMARY | 2024-08-07 12:20 | XMS_ITS ---
Author Name [facility] [place] Address [address] [place] [address] Care Team Providers Care Project Buyer Name Role Phone LENORA DEJESUS Primary Care [...] Jul 31, 2014 MEDICAR E SUPPLEM E [id number] [phone] FR GAMALIEL KAY PATIENT [facility] MEDICARE SUPPLEMEN [facility] MEDIC ARE SUPP Jul 31, 2014 SUPP [id number] [phone] FR GAMALIEL KAY PATIENT MEDICARE (WNR) MEDICARE (M) PART A Jan 29, 2004 PART A [id number] [phone] FR GAMALIEL KAY PATIENT MEDICARE (WNR) MEDICARE (M) PART B Jan 29, 2004 PART B [id number] [phone] FR GAMALIEL KAY PATIENT [facility] (WNR) MEDICARE ADVANTAGE [facility] ([facility]) Jul 31, 2023 [id number] [phone] RAHULFR GAMALIEL MACHADO PATIENT [facility]CR (WNR) MEDICARE ADVANTAGE MCR (WNR) Jul 31, 2023 [id number] [phone] FR GAMALIEL KAY PATIENT Selected Encounter This section includes the information on record at [place] for the Encounter. Date/Time Encounter Type Encounter Description Reason Pro vider Source December 08, 2023 12:00 AM Outpatient Encounter EVENT (HISTORICAL) IHE Encounter Template Text not used by [place] Plan of Treatment: Future Appointments (+ 6 months) and Future Tests (+/- 45 days) The Plan of Treatment section includes future care activities for the patient [facility] [place] [facility] This section includes future appointments and future orders which are active, pending or scheduled. Future Appointments This section includes appointments that were scheduled to occur 6 months from the date of the Encounter, up to a maximum of 20 appointments. The data comes from all [facility]. Appointment Date/Time Appointment Type Appointme nt Facility Name December 11, 2023 10:30 AM AMBULATORY - [facility]ICINE [facility] [place] [facility] December 20, 2023 09:00 AM AMBULATORY - [facility]IC[facility] [place] [facility] December 20, 2023 02:00 PM AMBULATORY - MEDICINE [facility] ([facility]) Jan 08, 2024 10:30 AM AMBULATORY - MEDICINE [facility] [place] [facility] Jan 11, 2024 01:00 PM AMBULATORY MEDICINE [facility] [place] [facility] Jan 30, 2024 01:00 PM AMBULATORY - MEDICINE [facility] [place] [facility] Mar 27, 2024 01:00 PM AMBULATORY - MEDICINE [facility] ([facility]) Apr 04, 2024 08:00 AM AMBULATORY - MEDICINE [facility] [place] [facility] May 15, 2024 02:00 PM AMBULATORY - MEDICINE [facility] ([facility]) Active, Pending, and Scheduled Orders This section includes a listing of several types of active, pending, and scheduled orders, including clinic medications orders, diagnostic test orders, procedure orders and consult orders; where the start date of the order is 45 days before the date of the Encounter or 45 days after the date of theEncounter. The data comes from all [facility]. Test Date/Time Test Type Test Details Facility Name 2023 01:37 PM Consult Order COMMUNITY CARE-NEUROLOGY Cons Senior Software Engineer [employer] [facility] Encounter Notes: All associated encounter notes This section contains the clinical notes associated to the Encounter. Date/Time Encounter Note(s) Provider Source December 08, 2023 12:00 AM NONVA NOTE: LOCAL TITLE: NON-[facility] STANDARD TITLE: NONVA NOTE DATE OF NOTE: DECEMBER 08, 2023 ENTRY DATE: JAN 09, 2024@10:58:53 AUTHOR: MAYANK MCCORMACK COSIGNER: URGENCY: STATUS: COMPLETED VistA Imaging - Scanned Document SCANNED DOCUMENT SIGNATURE NOT REQUIRED Electronically Filed: 01/09/2024 by: DONTE MCCORMACK Track Layer Head [facility]CCORMACK [facility]
--- OUTSIDE RECORDS SUMMARY | 2024-08-07 12:20 | XMS_ITS | Encounter Summary ---
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) Jul 31, 2023 [id number] [phone] FR GAMALIEL KAY PATIENT [facility] (WNR) MEDICARE ADVANTAGE [facility] (WNR) Jul 31, 2023 [id number] [phone] FR GAMALIEL KAY PATIENT Selected Encounter This section includes the information on record at [place] for the Encounter. Date/Time Encounter Type Encounter Description Reason Provider Source December 20, 2023 02:00 PM OFFICE O/P EST MOD 30 MIN PRIMARY CARE/MEDICINE ICD-10-CM E11.9 Type 2 diabetes mellitus without complications HUBER DEJESUS Encounter Template Text not used by [place] Assessments - Encounter Diagnoses This section includes the primary and secondary diagnoses documented for the Encounter. Date/Time Primary/Secondary Diagnosis Diagnosis Name Provider Source December 20, 2023 02:54 PM PRIMARY Type 2 diabetes mellitus without complications HUBER DEJESUS ([facility]) December 20, 2023 02:54 PM SECONDARY Essential (primary) hypertension HUBER DEJESUS ([facility]) December 20, 2023 02:54 PM SECONDARY Tremor, unspecified HUBER DEJESUS ([facility]) December 20, 2023 02:54 PM SECONDARY Unspecified atrial fibrillation HUBER DEJESUS ([facility]) Plan of Treatment: Future Appointments (+ 6 months) and Future Tests (+/- 45 days) The Plan of Treatment section includes future care activities for the patient from all [place] treatmentfacilities. This section includes future appointments and future orders which are active, pending or scheduled. Future Appointments This section includes appointments that were scheduled to occur 6 months from the date of the Encounter, up to a maximum of 20 appointments. The data comes from all [place] treatment facilities. Appointment Date/Time Appointment Type Appointme nt Facility Name Jan 08, 2024 10:30 AM [place] [facility] [place] [facility] Jan 11, 2024 01:00 PM AM[place] [facility] [place] [facility] Jan 30, 2024 01:00 PM [place] [facility] [place] [facility] Mar 27, 2024 01:00 PM [facility] Apr 04, 2024 08:00 AM [place] [facility] [place] [facility] May 15, 2024 02:00 PM AMBULATORY - MEDICINE [facility] ([facility]) Jun 12, 2024 11:00 AM AMBULATORY - MEDICINE [facility] ([facility]) Jun 19, 2024 01:00 PM [place] [facility] [place] [facility] Vital Signs: All taken on the encounter date This section contains inpatient and outpatient Vital Signs collected on the date of the Encounter. Date/Time Temperature Pulse Blood Pressure Respiratory Rate SP02 Pain Height Weight Body Mass Index Source December 20, 2023 02:05 PM 97.8 99 117/73 18 95 200 33 [place] ([facility]) Social History: Smoking Status (Most current) and Tobacco Use (All prior to encounter date) This section includes the most current, and the historical, smoking and tobacco- related health factors from the [place] facility where the Encounter took place. Current Smoking Status This section includes the most current smoking, or tobacco-related health factor, from the [place] facility where the Encounter took place. Date/Time Current Smoking Status Comment Jo itcarolynn Sep 22, 2023 01:00 PM VA-TOBACCO NEVER USED [place] ([facility]) Tobacco Use History This section includes a history of the smoking, or tobacco-related health factors, that were collected on or before the date of the Encounter. The data comes from the [place] facility where the Encounter took place. Date/Time [...] Encounter. Date/Time Encounter Note(s) Provider Source December 20, 2023 02:55 PM ADDENDUM: LOCAL TITLE: Addendum STANDARD TITLE: ADDENDUM DATE OF NOTE: DECEMBER 20, 2023@14:55:57 ENTRY DATE: DECEMBER 20, 2023@14:55:57 AUTHOR: LENORA DEJESUS EXP COSIGNER: URGENCY: STATUS: COMPLETED PACT 1 team: -as per wound clinic requires a [place] walker for his left lower extremity. This is to be requested through [facility] located in [place]. Please place prosthetics request. /es/ LENORA DEJESUS MD PHYSICIAN Signed: 12/20/2023 14:57 Receipt Acknowledged By: 12/22/2023 13:02 /es/ TODD DANIELS RN REGISTERED NURSE --- Original Document --- 12/20/23 NOTE: PRIMARY CARE VISIT MUKUL KAY, is a 83 yo WHITE MALE [place] who presents at the [place] [facility]. TYPE OF VISIT: Face to face 82-year-old with significant Charcot foot disease, Parkinson's disease, xug-ahciccc-igxzdkpgu diabetes, HTN, atrial fibrillation/sick sinus syndrome status post pacemaker, tremors,and history of lymphoma, BCC, and malignant melanoma. Recent ER admission 12/01/2023 for left diabetic foot infection and sepsis. He currently is following up with wound care clinic Dr. Jose Vaughn, has tell nurse visiting twice per week and has a neighbor who does home help at the house. As per wound clinic, needs [place] walker to be requested from [facility] to be done through the [place] Recent labs and all medications were reconciled during this visit. HEALTHCARE PROVIDERS: Dr Carla Vaughn, claim processing specialist: [phone] Cardiology: [facility] Derm: [place] Wound clinic: [facility] Social Hx: The patient has a roommate. No alcohol, nicotine, MJ. No regular exercise. 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 CARDIOVASCULAR: No chest pain, palpitations, or increased pedal edema RESPIRATORY: No SOB, cough, sputum, wheeze. GASTROINTESTINAL: Denies abd pain, N/V/D. No melena or hematochezia. No tenesmus or constipation. GENITOURINARY: No burning micturition. No urinary frequency or urgency. No nocturia. MUSCULOSKELETAL: No myalgias or arthralgias. PSYCHIATRIC: No new anxiety or depression. No sleep disturbance. NEUROLOGIC: No headaches, dizziness, numbness or tingling in the extremities, or unilateral weakness. EXAMINATION General: Well-appearing [place] in no obvious distress. Mental Status: Alert and oriented x4. Head: Normocephalic. Eyes: PERRLA. EOMI. Anicteric sclerae. ENT: Moist oral mucosa. Posterior pharynx unremarkable Neck: Supple. No JVD. No LAD. No bruit. Lungs: Clear bilaterally without wheeze or rhonchi. Normal effort and expansion. CV: Heart sounds S1, S2. Irregular irregular rhythm heart rate ranges from 90-100. No peripheral edema : No CVA tenderness. Ext: No cyanosis or clubbing. No gross deformities. Ext: Wheelchair-bound. Diabetic shoes are on patient with complete wound dressings on the left lower extremity. Do not remove dressings during this visit Psych: Normal mood and affect. Normal judgment. ALLERGIES: ========= LISINOPRIL, METFORMIN >> HEALTH MAINTENANCE PREVENTIVE MEDICINE GOALS Medication Reconciliation DUE NOW COVID-19 Immunization DUE NOW (Optional) Whole Health Documentation DUE NOW ASSESSMENT/PLAN: Active problems - Computerized Problem List is the source for the followin. Spinal stenosis 2. Basal Cell Carcinoma of Skin ([facility] [id number]) 3. Parkinson's disease 4. Diabetes Mellitus Type 2 ([facility] [id number]) 5. HTN - Hypertension ([facility] [id number]) 6. History of malignant melanoma of the skin 7. AF- Atrial Fibrillation ([facility] [id number]) 8. Permanent cardiac pacemaker 9. Lymphedema of leg 10. Tremor == Diabetic foot infection: Frequent follow-up with wound clinic. He is off antibiotics. We will request the [place] walker for left lower extremity. Wound clinic is requesting all notes from recent [facility] imaging including blood cultures. I did not see all of the information in [place]. I would advise [place] to request directly from [facility] == Diabetes: Recent A1c 6.6. On alogliptin 25 mg. Following with pharmacy. Will get repeat labs at next visit. == Atrial fibrillation: On apixaban 5 mg twice daily and metoprolol 50 mg twice daily. Rate is usually 90-100. He has pacemaker in place == Hypertension: Well-controlled on current medications == Tremor: Following up with neurology FOLLOW UP: RTC Below & sooner PRN UPCOMING APPOINTMENTS: 01/03/2024 13:00 CWM/GO/PACT 1 01/08/2024 10:30 CWM/GO/TELE/PHARM/PACT 1 01/11/2024 13:[address] [facility] 06/25/2024 14:30 NHM/OPTOMETRY/[place]/ 10/07/2024 13:00 CWM/GO/DERMATOLGY A minutes spent in patient evaluation, data review, and patient education. All medications were reconciled during this visit. No barriers; Patient understands and agrees to current treatment plan. If pt has any questions, concerns, or changes in current health status he/she will call or come in to the [place]. /kasia/ LENORA DEJESUS MD PHYSICIAN Signed: 12/20/2023 14:55 12/22/2023 ADDENDUM STATUS: UNSIGNED You may not VIEW this UNSIGNED Addendum. LENORA DEJESUS ([facility]) December 20, 2023 02:19 PM PHYSICIAN NOTE: LOCAL TITLE: MD NOTE STANDARD TITLE: PHYSICIAN NOTE DATE OF NOTE: DECEMBER 20, 2023@14:19 ENTRY DATE: DECEMBER 20, 2023@14:19:30 AUTHOR: LENORA DEJESUS EXP COSIGNER: URGENCY: STATUS: COMPLETED NOTE Has ADDENDA PRIMARY CARE VISIT MUKUL KAY, is a 83 yo WHITE MALE who presents at the [place] [facility]. TYPE OF VISIT: Face to face 82-year-old [place] with significant Charcot foot disease, Parkinson's disease, upb-mpvgpbd-yijgffemn diabetes, HTN, atrial fibrillation/sick sinus syndrome status post pacemaker, tremors,and history of lymphoma, BCC, and malignant melanoma. Recent ER admission 12/01/2023 for left diabetic foot infection and sepsis. He currently is following up with wound care clinic Dr. Jose Vaughn, has tell nurse visiting twice per week and has a neighbor who does home help at the house. As per wound clinic, needs [place] walker to be requested from [facility] to be done through the [place] Recent labs and all medications were reconciled during this visit. HEALTHCARE PROVIDERS: Dr Carla Vaughn, claim processing specialist: [phone] Cardiology: [facility] Derm: [place] Wound clinic: [facility] Social Hx: The patient has a roommate. No alcohol, nicotine, MJ. No regular exercise. HISTORY: PERIOD OF SERVICE - [employer] FROM May TO Jul COMBAT SERVICE INDICATED: No VITAL SIGNS: Temperature 97.8 F [36.6 C] (12/20/2023 14:05) Blood Pressure 117/73 (12/20/2023 14:05) Pulse 99 (12/20/2023 14:05) Respiration 18 (12/20/2023 14:05) Pain 1 (10/26/2023 15:04) BMI BMI: 33.4 Weight 200 lb [90.72 kg] (12/20/2023 14:05) Pulse Oximetry 95% (12/20/2023 14:05) ASSISTIVE DEVICES: REVIEW OF SYSTEMS: CONSTITUTIONAL: No fevers, chills, weight loss/gain ENT: No sore throat, sneezing, congestion, rhinorrhea, anosmia, or ageusia. CARDIOVASCULAR: No chest pain, palpitations, or increased pedal edema RESPIRATORY: No SOB, cough, sputum, wheeze. GASTROINTESTINAL: Denies abd pain, N/V/D. No melena or hematochezia. No tenesmus or constipation. GENITOURINARY: No burning micturition. No urinary frequency or urgency. No nocturia. MUSCULOSKELETAL: No myalgias or arthralgias. PSYCHIATRIC: No new anxiety or depression. No sleep disturbance. NEUROLOGIC: No headaches, dizziness, numbness or tingling in the extremities, or unilateral weakness. EXAMINATION General: Well-appearing [place] in no obvious distress. Mental Status: Alert and oriented x4. Head: Normocephalic. Eyes: PERRLA. EOMI. Anicteric sclerae. ENT: Moist oral mucosa. Posterior pharynx unremarkable Neck: Supple. No JVD. No LAD. No bruit. Lungs: Clear bilaterally without wheeze or rhonchi. Normal effort and expansion. CV: Heart sounds S1, S2. Irregular irregular rhythm heart rate ranges from 90-100. No peripheral edema : No CVA tenderness. Ext: No cyanosis or clubbing. No gross deformities. Ext: Wheelchair-bound. Diabetic shoes are on patient with complete wound dressings on the left lower extremity. Do not remove dressings during this visit Psych: Normal mood and affect. Normal judgment. ALLERGIES: ========= LISINOPRIL, METFORMIN >> HEALTH MAINTENANCE PREVENTIVE MEDICINE GOALS Medication Reconciliation DUE NOW COVID-19 Immunization DUE NOW (Optional) Whole Health Documentation DUE NOW ASSESSMENT/PLAN: Active problems - Computerized Problem List is the source for the followin. Spinal stenosis 2. Basal Cell Carcinoma of Skin ([facility] [id number]) 3. Parkinson's disease 4. Diabetes Mellitus Type 2 ([facility] [id number]) 5. HTN - Hypertension ([facility] [id number]) 6. History of malignant melanoma of the skin 7. AF- Atrial Fibrillation ([facility] [id number]) 8. Permanent cardiac pacemaker 9. Lymphedema of leg 10. Tremor == Diabetic foot infection: Frequent follow-up with wound clinic. He is off antibiotics. We will request the [place] walker for left lower extremity. Wound clinic is requesting all notes from recent [facility] imaging including blood cultures. I did not see all of the information in [place]. I would advise to request directly from [facility] == Diabetes: Recent A1c 6.6. On alogliptin 25 mg. Following with pharmacy. Will get repeat labs at next visit. == Atrial fibrillation: On apixaban 5 mg twice daily and metoprolol 50 mg twice daily. Rate is usually 90-100. He has pacemaker in place == Hypertension: Well-controlled on current medications == Tremor: Following up with neurology FOLLOW UP: RTC Below & sooner PRN UPCOMING APPOINTMENTS: 01/03/2024 13:00 CWM/GO/PACT 1 01/08/2024 10:30 CWM/GO/TELE/PHARM/PACT 1 01/11/2024 13:[address] [facility] 06/25/2024 14:30 NHM/OPTOMETRY/[place]/ 10/07/2024 13:00 CWM/GO/DERMATOLGY A minutes spent in patient evaluation, data review, and patient education. All medications were reconciled during this visit. No barriers; Patient understands and agrees to current treatment plan. If pt has any questions, concerns, or changes in current health status he/she will call or [place]. /[place]/ LENORA DEJESUS MD PHYSICIAN Signed: 12/20/2023 14:55 12/20/2023 ADDENDUM STATUS: COMPLETED PACT 1 team: -as per wound clinic requires a [place] walker for his left lower extremity. This is to be requested through [facility] located in [place]. Please place prosthetics request. /kasia/ LEONRA DEJESUS MD PHYSICIAN Signed: 12/20/2023 14:57 Receipt Acknowledged By: 12/22/2023 13:02 /kasia/ TODD DANIELS, RN REGISTERED NURSE 12/22/2023 ADDENDUM STATUS: COMPLETED Reached out to podiatry staff and was advised to start with a prosthetics request. Podiatry staff offered appt with provider if [place] would like. This keno writer / runner advised that has been seeing podiatry in community d/t distance of travel and recently started seeing wound care in the community as well. /kasia/ TODD DANIELS, [place] REGISTERED NURSE Signed: 12/22/2023 13:04 LENORA DEJESUS ([facility])
--- OUTSIDE RECORDS SUMMARY | 2024-08-07 12:20 | XMS_ITS | Encounter Summary ---
Author Name [facility] [place] [facility] [place] Address [address] [place] [address] Care Team Providers Care Shuttlecock Feather Trimmer Name Role Phone LENORA DEJESUS Primary Care [...] Jul 31, 2014 MEDICAR E SUPPLEM E [id number] [phone] FR GAMALIEL KAY PATIENT [facility] MEDICARE SUPPLEMEN [facility]ELIST[facility] MEDIC ARE SUPP Jul 31, 2014 SUPP [id number] [phone] FR GAMALIEL KAY PATIENT MEDICARE (WNR) MEDICARE (M) PART A Jan 29, 2004 PART A [id number] [phone] FR GAMALIEL KAY PATIENT MEDICARE (WNR) MEDICARE (M) PART B Jan 29, 2004 PART B [id number] [phone] FR GAMALIEL KAY PATIENT [facility] (WNR) MEDICARE ADVANTAGE [facility] ([facility]) Jul 31, 2023 [id number] [phone] FR GAMALIEL KAY PATIENT [facility] (WNR) MEDICARE ADVANTAGE [facility] (WNR) Jul 31, 2023 [id number] [phone] FR GAMALIEL KAY PATIENT Selected Encounter This section includes the information on record at [place] for the Encounter. Date/Time Encounter Type Encounter Description Reason Pro vider Source December 28, 2023 10:05 AM Outpatient Encounter PRIMARY CARE/MEDICINE IHE Encounter [...] 08, 2024 10:30 AM AMBULATORY - MEDICINE [place] [facility] Jan 11, 2024 01:00 PM AMBULATORY - MEDICINE [place] [facility] [place] [facility] Jan 30, 2024 01:00 PM AMBULATORY - MEDICINE [place] [facility] [place] [facility] Mar 27, 2024 01:00 PM AMBULATORY - MEDICINE [facility] ([facility]) Apr 04, 2024 08:00 AM AMBULATORY - MEDICINE [place] [facility] May 15, 2024 02:00 PM AMBULATORY - MEDICINE [facility] ([facility]) Jun 12, 2024 11:00 AM AMBULATORY - MEDICINE [facility] ([facility]) Jun 19, 2024 01:00 PM AMBULATORY - MEDICINE [place] [facility] [place] [facility] Jun 25, 2024 02:30 PM AMBULATORY - MEDICINE [place] [facility] Encounter Notes: All associated encounter notes This section contains the clinical notes associated to the Encounter. Date/Time Encounter Note(s) Provider Source December 28, 2023 10:05 AM NONVA NOTE: LOCAL TITLE: NON-VA MEDICAL RECORD SUMMARY STANDARD TITLE: NONVA NOTE DATE OF NOTE: DECEMBER 28, 2023@10:05 ENTRY DATE: DECEMBER 28, 2023@10:05:58 AUTHOR: TODD DANIELS EXP COSIGNER: URGENCY: STATUS: COMPLETED COPIED & PASTED FROM WOUND CARE NOTES [facility] Date of Encounter: 12/27/2023 Author: Carla Vaughn Chief Complaint Mchugh Grade 1 Diabetic Ulcer HPI This information was obtained from the Patient. Jose is 83 years of age. He is diabetic. He has a pacemaker. We have been following him for years with ulcers on the plantar aspect of each foot. He has clawed toes. After years of treating his toes they have finally healed. His underlying diagnoses at present are Charcot feet, diabetes mellitus, bradycardia and parkinsonism versus intentional tremor. I have been following him for several years with disease involving his toes on both feet and several other problems reflecting venous insufficiency. It is my understanding that he was recently hospitalized at [facility] for what sounds like 2 separate hospitalizations including time in a retirement all related to the development of a cellulitis and apparently sepsis secondary to infection in his left foot. At present he is not on an antibiotic. I have no records available to me as this is a different institution. Although he never had an open wound in the area that brings him here today, I was very conscious of the progressive severe Charcot deformity involving his left foot with marked valgus deviation and apparent loss of the stability on the medial aspect of his foot with likely total collapse of the midtarsal joint. He has apparently developed a wound right where this is most prominent which would be the center of what was once the longitudinal arch. We are presently managing this wound topically with the expectation that we can ultimately obtain a Chipewwa device for him and perhaps even eliminate the use of the custom shoe that he has had for about a year, This custom shoe was fashioned for a foot that no longer shaped as it is now. I am certain that this is the explanation for the pressure that is being exerted over the apex of the deformity plantarward and medially. Wound Assessment(s) Wound #17 Left, Medial Foot is a Diabetic Ulcer and has received a status of Not Healed. Subsequent wound encounter measurements are 0.7cm length x 1cm width x 0.1 cm depth, with an area of 0.7 sq cm and a volume of 0.07 cubic cm. No tunneling has been noted. No sinus tract has been noted. No undermining has been noted. There is a Small amount of sero?sanguineous drainage noted which has no odor. The patient reports no wound pain due to the wound being insensate. The wound margin is attached to wound base Wound bed has 76-100%, bright red, firm, granulation. There is no change noted in the wound progression. The periwound skin exhibited edema and erythema. The periwound skin did not exhibit brawny induration, excoriation, induration, callus, crepitus, fluctuance, rash, scarring, atrophie roseanna, cyanosis, ecchymosis, hemosiderosis, pallor and rubor. The periwound skin was not friable, shiny and denuded. The temperature of the periwound skin is Warm. Periwound skin does not exhibit signs or symptoms of infection. The prominence of the absent arch with a marked valgus deformity of his foot has an ulcer in the center that is full-thickness, but no deeper than that, and the base of this ulcer is clean and granulating. The deformity is striking nevertheless to the point that the valgus is so severe that there is a crease at the dorsal lateral aspect of the mid and hindfoot. Assessment Active Problems At all costs pressure has to be kept off of the ulcer and the prominence of his midfoot and this can be done with the use of a kneeling walker for active times in the short-term and in the long run a Chipewwa boot. Plan Wound Orders: Wound #17 - Left, Medial Foot * Diabetic Ulcer Apply wound with Gauze Sponge, Non-woven Versalon 4 ply Non-Sterile 2 x 2 Every day Curity Stretch Bandage 4 x 75 Every day Sheri Antifungal Every day Silk-like Cloth Tape 2 x 10 yds Every day Apply wound with Dakin's Solution 0.125% Every day Return appointment in 1 week - Dr. Vaughn 01/03/24 Wound Healing goals Short Term Wound Goals Goal:: Stimulate healing -,Reduce infection risk - Government Sales Manager Wound Goals Goal:: Off-load the ulcer to promote healing. -,Reduce bacterial burden in the wound bed. -,The ulcer has a poor chance of healing with compliance from patient. We are trying to have his primary care doctor order a NISQUALLY boot . Jose is going to look into getting a kneeling walker and of course I have emphasized that the less time he spends in the so-called custom shoe, the better off he will be. Although it is a beautiful customized shoe, it is no longer appropriate for the more severe deformity that has developed since obtaining same /kasia/ TODD DANIELS RN REGISTERED NURSE Signed: 12/28/2023 10:11 Receipt Acknowledged By: 12/28/2023 11:34 /kasia/ LENORA DEJESUS MD PHYSICIAN TODD DANIELS ([facility])
--- OUTSIDE RECORDS SUMMARY | 2024-08-07 12:20 | XMS_ITS | Encounter Summary ---
Author Name [facility] [place] Address [address] [place] [id number] Care Team Providers Care Social Media Marketing Specialist Name Role Phone LENORA DEJESUS Primary Care [...] Jul 31, 2014 MEDICAR E SUPPLEM E [id number] [phone] FR RAHUL GAMALIEL PATIENT [facility] MEDICARE SUPPLEMEN EVANGELISTA MEDIC ARE SUPP Jul 31, 2014 SUPP [id number] [phone] FR RAHUL GAMALIEL PATIENT MEDICARE (WNR) MEDICARE (M) PART A Jan 29, 2004 PART A [id number] RAHUL GAMALIEL PATIENT MEDICARE (WNR) MEDICARE (M) PART B Jan 29, 2004 PART B [id number] [phone] FR RAHUL GAMALIEL PATIENT [facility] (WNR) MEDICARE ADVANTAGE [facility] ([facility]) Jul 31, 2023 [id number] [phone] FR GAMALIEL KAY PATIENT [facility] (WNR) MEDICARE ADVANTAGE [facility] (WNR) Jul 31, 2023 [id number] [phone] FR GAMALIEL KAY PATIENT Selected Encounter This section includes the information on record at [place] for the Encounter. Date/Time Encounter Type Encounter Description Reason Provider Source Jan 08, 2024 10:30 AM MTMS BY PHARM EST 15 MIN TELEPHONE PRIMARY CARE ICD-10-CM E11.9 Type 2 diabetes mellitus without complications RUEL CARPENTER Encounter Template Text not used by CT Assessments - Encounter Diagnoses This section includes the primary and secondary diagnoses documented for the Encounter. Date/Time Primary/Secondary Diagnosis Diagnosis Name Provider Source Jan 08, 2024 10:30 AM PRIMARY Type 2 diabetes mellitus without complications RUEL CARPENTERFIELD ([facility]) Plan of Treatment: Future Appointments (+ 6 months) and Future Tests (+/- 45 days) The Plan of Treatment section includes future care activities for the [facility] This section includes future appointments [...] 2024 01:00 PM AMBULATORY - MEDICINE [facility] [place] [facility] Jan 30, 2024 01:00 PM AMBULATORY - MEDICINE [facility] [place] [facility] Mar 27, 2024 01:00 PM AMBULATORY - MEDICINE [facility] ([facility]) Apr 04, 2024 08:00 AM AMBULATORY - MEDICINE [facility] [place] [facility] May 15, 2024 02:00 PM AMBULATORY - MEDICINE [facility] ([facility]) Jun 12, 2024 11:00 AM AMBULATORY - MEDICINE [facility] ([facility]) Jun 19, 2024 01:00 PM AMBULATORY - MEDICINE [facility] [place] [facility] Jun 25, 2024 02:30 PM [facility] Social History: Smoking Status (Most current) and Tobacco Use (All prior to encounter date) This section includes the most current, and the historical, smoking and tobacco- related health factors from the [place] facility where the Encounter took place. Current Smoking Status This section includes the most current smoking, or tobacco-related health factor, from the [place] facility where the Encounter took place. Date/Time Current Smoking Status Comment Jo william Sep 22, 2023 01:00 PM VA-TOBACCO NEVER USED [facility] ([facility]) Tobacco Use History This section includes a history of the smoking, or tobacco-related health factors, that were collected on or before the date of the Encounter. The data comes from the [place] facility where the Encounter took place. Date/Time [...] Encounter Note(s) Provider Source Jan 08, 2024 10:30 AM PHARMACY TELEPHONE ENCOUNTER NOTE: LOCAL TITLE: TELEPHONE NOTE/PHARMACY STANDARD TITLE: PHARMACY TELEPHONE ENCOUNTER NOTE DATE OF NOTE: JAN 08, 2024@10:30 ENTRY DATE: JAN 08, 2024@09:51:48 AUTHOR: NARDA CARPENTER COSIGNER: URGENCY: STATUS: COMPLETED Called pt to obtain BG readings. Pt was last called on 12/11/23, at which point alogliptin 25mg daily was continued. Today, pt reports taking his DM medication NOT as prescribed. About 2 weeks ago, he decided to stop taking alogliptin and resumed taking glimepiride 2mg qAM due to concern for possible AEs with alogliptin. He reports reading online that there seemed to be more potential AEs with alogliptin vs. glimepiride, namely tremors, so he decided to change back. 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 He does not recall his tremors getting worse upon starting alogliptin a few months ago. He does not notice any difference/improvement in his tremors since stopping alogliptin a couple weeks ago. Pt's [facility] was able to help him test his BG a few times. SMBG: pt unable to SMBG independently due to bad hand tremors. Recent BG from VNA testin, 136, 147 - pt reports these were tested FBG or post-lunch Diet Patterns: patient eats on avg. 2-3x/day: Wake: 5-6am B: 9-10am; eggs & homefries w/ juice or coffee; L: 12-1pm; sometimes skips; Sinhala takeout; baked beans, PBJ, ham and cheese [...] management - DISCONTINUE glimepiride 2mg qAM - Reviewed rationale for d/c'ing GRIGGS as A1c is well controlled and to avoid risk of hypoglycemia in elderly pt with PD/high fall risk - Could consider restarting DPP4i with formulary preferred sitalgiptin in the future prn per BG/A1c trend and if pt is amenable - Note: past trial of metformin SA resulted in intolerable GI AEs - Continue to SMBG 2x/week - VNA tests his BG during home visits - Monitor for s/sx hypoglycemia and contact clinic if BG consistently <70mg/dL - Healthy dietary and lifestyle modifications encouraged - Repeat A1c: Feb 2024 Clinic's Next Scheduled Follow-up: 01/30/24 @1300 *phone clinic* Time Spent: 15 minutes PBM PharmD Pharmacotherapy Rem V12: PHARMACIST INTERVENTIONS: TYPE 2 DIABETES MELLITUS Medication Intervention(s) Discontinue and/or change to different medication Discontinue and/or change to different medication due to other reason Medication reconciliation (changes to active VA and non-VA medication lists to reconcile differences) Changes to medication lists made Discontinue or remove medication /es/ Narda Carpenter, KeyaD Clinical Salesforce Trainer Signed: 01/08/2024 12:57 NARDA CARPENTER ([facility])
--- OUTSIDE RECORDS SUMMARY | 2024-08-07 12:20 | XMS_ITS ---
Author Name [facility] [place] [facility] [place] Address [address] [place] [address] Care Team Providers Care Java Lead Name Role Phone LENORA DEJESUS Primary Care [...] Jul 31, 2014 MEDICAR E SUPPLEM E [id number] [phone] FR GAMALIEL KAY PATIENT [facility] MEDICARE SUPPLEMEN [place] MEDIC ARE SUPP Jul 31, 2014 SUPP [id number] [phone] FR GAMALIEL KAY PATIENT MEDICARE (WNR) MEDICARE (M) PART A Jan 29, 2004 PART A [id number] [phone] FR GAMALIEL KAY PATIENT MEDICARE (WNR) MEDICARE (M) PART B Jan 29, 2004 PART B [id number] [phone] FR GAMALIEL KYA PATIENT [facility] (WNR) MEDICARE ADVANTAGE [facility] ([facility]) Jul 31, 2023 [id number] [phone] FR GAMALIEL KAY PATIENT [facility] MCR (WNR) MEDICARE ADVANTAGE [facility]CR (WNR) Jul 31, 2023 [id number] [phone] FR GAMALIEL KAY PATIENT Selected Encounter This section includes the information on record at [place] for the Encounter. Date/Time Encounter Type Encounter Description Reason Pro vider Source December 22, 2023 12:00 AM Outpatient Encounter EVENT (HISTORICAL) IHE Encounter Template Text not used by [place] Plan of Treatment: Future Appointments (+ 6 months) and Future Tests (+/- 45 days) The Plan of Treatment section includes future care activities for the patient from all [place] treatmentfacilities. This section includes future appointments and future orders which are active, pending or scheduled. Future Appointments This section includes appointments that were scheduled to occur 6 months from the date of the Encounter, up to a maximum of 20 appointments. The data comes from all [place] treatment facilities. Appointment Date/Time Appointment Type Appointme nt Facility Name Jan 08, 2024 10:30 AM AMBULATORY - MEDICINE [place] [facility] Jan 11, 2024 01:00 PM AMBULATORY - MEDICINE [facility] [place] [facility] Jan 30, 2024 01:00 PM AMBULATORY - MEDICINE [place] [facility] Mar 27, 2024 01:00 PM AMBULATORY - MEDICINE [facility] ([facility] Apr 04, 2024 08:00 AM AMBULATORY - MEDICINE [place] [facility] May 15, 2024 02:00 PM AMBULATORY - MEDICINE [facility] ([facility] Jun 12, 2024 11:00 AM AMBULATORY - MEDICINE [facility] ([facility]) Jun 19, 2024 01:00 PM AMBULATORY - MEDICINE [facility] [place] [facility] Encounter Notes: All associated encounter notes This section contains the clinical notes associated to the Encounter. Date/Time Encounter Note(s) Provider Source December 22, 2023 12:00 AM NONVA NOTE: LOCAL TITLE: NON-VA [facility] STANDARD TITLE: NONVA NOTE DATE OF NOTE: DECEMBER 22, 2023 ENTRY DATE: JAN 09, 2024@11:20:51 AUTHOR: MAYANK MCCORMACK COSIGNER: URGENCY: STATUS: COMPLETED VistA Imaging - Scanned Document SCANNED DOCUMENT SIGNATURE NOT REQUIRED Electronically Filed: 01/09/2024 by: DONTE MCCORMACK Supervisor Sewer System DONTE MCCORMACK CNTRL SIDNEYTRElaine JAIMESAGATHA [facility]
--- OUTSIDE RECORDS SUMMARY | 2024-08-07 12:21 | XMS_ITS | Encounter Summary ---
Author Name [facility] [place] [facility] [place] Address [address] [place] [address] Care Team Providers Care Box Feeder Name Role Phone LENORA DEJESUS Primary Care [...] Jul 31, 2014 MEDICAR E SUPPLEM E [id number] [phone] FR GAMALIEL KAY PATIENT [facility] MEDICARE SUPPLEMEN EVANGELISTA MEDIC ARE SUPP Jul 31, 2014 SUPP [id number] [phone] FR GAMALIEL KAY PATIENT MEDICARE (WNR) MEDICARE (M) PART A Jan 29, 2004 PART A [id number] [phone] FR GAMALIEL KAY PATIENT MEDICARE (WNR) MEDICARE (M) PART B Jan 29, 2004 PART B [id number] [phone] FR GAMALIEL KAY PATIENT [facility] (WNR) MEDICARE ADVANTAGE [facility] ([facility]) Jul 31, 2023 [id number] [phone] FR GAMALIEL KAY PATIENT [facility] (WNR) MEDICARE ADVANTAGE MCR (WNR) Jul 31, 2023 [id number] [phone] FR GAMALIEL KAY PATIENT Selected Encounter This section includes the [place] at [place] for the Encounter. Date/Time Encounter Type Encounter Description Reason Pro vider Source Mar 04, 2024 12:00 AM Outpatient Encounter EVENT (HISTORICAL) [...] 27, 2024 01:00 PM [facility] Apr 04, 2024 08:00 AM [place]ORY [place]IC[place] [facility] May 15, 2024 02:00 PM [facility] Jun 12, 2024 11:00 AM AMBULATORY - MEDICINE [facility] ([facility]) Jun 19, 2024 01:00 PM AM[place]ORY [place] [facility] Jun 25, 2024 02:30 PM AM[place]ULATORY [place]IC[place] [facility] Jul 30, 2024 03:30 PM [facility] Aug 07, 2024 01:00 PM AM[place]ULATORY [place] [facility] Aug 14, 2024 10:00 AM AMBULATORY - NONE [place] [facility] Sep 02, 2024 03:30 PM AM[place]ORY [place] [facility] Lab Results: +/- 30 days [...] Result - Unit Interpretation Reference Range Comment Mar 20, 2024 11:40 AM [place] ([facility]) MICROALBUMIN CREATININE RATIO PANEL Specimen Type: URINE No comment entered. Ordering Provider: FLYNN DEJESUS Report Released Date/Time: Mar 11, 2024 11:36 AM Reporting Lab: [address] [address] Performing Lab: [address] [address] MICROALBUMIN/C REATININE RATIO 13.3 mg/g 0-29.9 MICROALBUMIN,Q UANTITATIVE 2.0 mg/dL RR UNAVAIL CREATININE URINE 150.03 mg/dL Mar 20, 2024 11:40 AM [place] ([facility]) URINALYSIS Specimen Type: URINE Comment: If Glucose = >500 and Ketones are positive, please alert the Physician. Ordering Provider: FLYNN DEJESUS Report Released Date/Time: Mar 11, 2024 11:36 AM Reporting Lab: [address] [address] Performing Lab: [address] [address] UA COLOR Yellow Yellow UA APPEARANCE Clear Clear UA GLUCOSE Normal mg/dL Negative UA KETONES NEGATIVE mg/dL Negative UA BLOOD NEGATIVE mg/dL Negative UA PROTEIN 10 mg/dL Negative UA NITRITE NEGATIVE mg/dL Negative UA BILIRUBIN NEGATIVE mg/dL Negative UA SPECIFIC GRAVITY 1.023 H 1.016-1.02 2 UA pH 6.0 5.0-9.0 UA UROBILINOGEN Normal mg/dL <2.0 UA LEUKOCYTE SMALL Negative Mar 20, 2024 11:40 AM [place] ([facility]) MICROSCOPIC AUTOMATED, URINE Specimen Type: URINE Comment: If Glucose = >500 and Ketones are positive, please alert the Physician. Ordering Provider: FLYNN DEJESUS Report Released Date/Time: Mar 11, 2024 11:36 AM Reporting Lab: [address] [address] Performing Lab: [address] [address] UA WBC 6-10 /[HPF] H 0-5 UA MUCUS FEW /[LPF] Trace UA RBC 0-2 /[HPF] 0-3 UA SQUAMOUS EPITH FEW /[HPF] Mar 20, 2024 11:28 AM [place] ([facility]) VITAMIN B12 Specimen Type: SERUM No comment entered. Ordering Provider: FLYNN DEJESUS Report Released Date/Time: Mar 11, 2024 11:36 AM Reporting Lab: [facility] [address] [address] Performing Lab: [facility] [place] [facility] [address] VITAMIN B12 386 pg/mL 200-900 Mar 20, 2024 11:28 AM [place] ([facility]) VITAMIN D (25-OH) Specimen Type: SERUM No comment entered. Ordering Provider: FLYNN DEJESUS Report Released Date/Time: Mar 11, 2024 11:36 AM Reporting Lab: [facility] [place] [address] [address] Performing Lab: [facility] [place] [facility] [address] VITAMIN D (25-OH) 29 ng/mL 20-50 Mar 20, 2024 11:28 AM [place] ([facility]) TSH Specimen Type: SERUM No comment entered. Ordering Provider: FLYNN DEJESUS Report Released Date/Time: Mar 11, 2024 11:36 AM Reporting Lab: [facility] [place] [facility] [address] Performing Lab: [facility]MARL TRN [facility]OSPITALUSETS [address] [address] TSH 1.56 u[IU]/mL 0.35-5.00 Mar 20, 2024 11:28 AM [place] ([facility]) LIVER FUNCTION Specimen Type: SERUM No comment entered. Ordering Provider: FLYNN DEJESUS Report Released Date/Time: Mar 11, 2024 11:36 AM Reporting Lab: [facility] [place] [address] [address] Performing Lab: [facility] [place] [facility] [address] PROTEIN,TOTAL 6.9 g/dL 6.0-8.3 ALBUMIN 3.5 g/dL 3.5-5.0 ALKALINE PHOSPHATASE 79 U/L 40-150 AST 14 U/L 5-34 ALT <6 U/L BILIRUBIN, TOTAL 0.5 mg/dL 0.2-1.2 Mar 20, 2024 11:28 AM [place] ([facility]) LIPID PANEL, NON FASTING Specimen Type: SERUM No comment entered. Ordering Provider: FLYNN DEJESUS Report Released Date/Time: Mar 11, 2024 11:36 AM Reporting Lab: [address] [address] Performing Lab: [place] [address] CHOLESTEROL 162 mg/dL TRIGLYCERIDE 115 mg/dL 0-150 LDL calculated 99 mg/dL 0-129 CHOL/HDL 4.1 HDL CHOLESTEROL 40 mg/dL 40-60 Mar 20, 2024 11:28 AM [place] ([facility]) CBC AND DIFF (AUTO) Specimen Type: BLOOD No comment entered. Ordering Provider: FLYNN DEJESUS Report Released Date/Time: Mar 11, 2024 11:36 AM Reporting Lab: [address] [address] Performing Lab: [place] [phone] WBC 6.97 10*3/uL 4.50-11.00 RBC 5.38 10*6/uL 4.23-5.66 HGB 15.9 g/dL 12.8-17 HCT 47.9 39.2-50.4 MCV 89.0 fL 82-99 MCHC 33.2 g/dL 30.8-35.1 PLT 224 10*3/uL 140-360 RDW-CV 13.4 12.0-16.0 MONO, ABS 0.65 10*3/uL 0.30-1.10 MCH 29.6 pg 26.2-32.6 NEUT % 73.0 43.7-75.8 LYMPH % 16.8 14.0-42.3 MONO % 9.3 5.1-13.7 EOS % 0.4 0.4-6.8 BASO % 0.4 0.1-2.0 NEUT, ABS 5.08 10*3/uL 2.20-7.60 LYMPH, ABS 1.17 10*3/uL 1.00-3.20 EOS, ABS 0.03 10*3/uL 0.03-0.44 BASO, ABS 0.03 10*3/uL 0.01-0.13 IMMATURE GRAN % 0.1 0.0-0.7 IMMATURE GRAN, ABS 0.01 10*3/uL 0.00-0.06 NRBC % 0.0 0.0-0.0 NRBC, ABS 0.00 10*3/uL 0.00-0.00 Mar 20, 2024 11:27 AM [facility] HEMOGLOBIN A1C PANEL Specimen Type: BLOOD Comment: Values obtained from A1C measurements can vary. For atypical A1C assays, a reported value of 7.0 could actually be between 6.72 and 7.28 if measured by a reference method. A reported value of 9.0 could actually be between 8.73 and 9.27. Ref: http://www.ngs p.org/CAPdata. asp Ordering Provider: LORY CARPENTER Report Released Date/Time: Jan 30, 2024 01:20 PM Reporting Lab: [facility] [address] [address] Performing Lab: [address] [address] HEMOGLOBIN A1C 6.0 H 4.0-5.6 Mar 20, 2024 11:27 AM [facility] BASIC METABOLIC PANEL (non-fasting) Specimen Type: SERUM No comment entered. Ordering Provider: LORY CARPENTER Report Released Date/Time: Jan 30, 2024 01:20 PM Reporting Lab: [facility] [address] [address] Performing Lab: [address] [address] UREA NITROGEN 21 mg/dL 7-25 GLUCOSE 175 mg/dL H 65-100 SODIUM 139 mmol/L 135-145 POTASSIUM 4.0 mmol/L 3.5-5.0 CHLORIDE 104 mmol/L 100-110 CO2 25 meq/L 20-30 CREATININE, Serum 1.11 mg/dL 0.50-1.40 eGFR(CKD-EPI 2020) 67 mL/min >60 Encounter Notes: All associated encounter notes This section contains the clinical notes associated to the Encounter. Date/Time Encounter Note(s) Provider Source Mar 04, 2024 12:00 AM NONVA NOTE: LOCAL TITLE: NON-VA OUTPATIENT NOTES STANDARD TITLE: NONVA NOTE DATE OF NOTE: MAR 04, 2024 ENTRY DATE: MAR 25, 2024@07:32:34 AUTHOR: AMRIT FIGUEROA MA EXP COSIGNER: URGENCY: STATUS: COMPLETED VistA Imaging - Scanned Document SCANNED DOCUMENT SIGNATURE NOT REQUIRED Electronically Filed: 03/25/2024 by: AMRIT FIGUEROA STREET WORKER AMRIT FIGUEROA [place] [facility] [facility]
--- OUTSIDE RECORDS SUMMARY | 2024-08-07 12:21 | XMS_ITS | Encounter Summary ---
Author Name [facility] [place] Organization [facility] [place] Address [address] [place] [address] Care Team Providers Care Appraiser [employer]ats [employer] Name Role Phone LENORA DEJESUS Primary Care [...] Jul 31, 2014 MEDICAR E SUPPLEM E [id number] [phone] FR GAMALIEL KAY PATIENT [facility] MEDICARE SUPPLEMEN EVANGELISTA MEDIC ARE SUPP Jul 31, 2014 SUPP [id number] [phone] FR GAMALIEL KAY PATIENT MEDICARE (WNR) MEDICARE (M) PART A Jan 29, 2004 PART A [id number] [phone] FR GAMALIEL KAY PATIENT MEDICARE (WNR) MEDICARE (M) PART B Jan 29, 2004 PART B [id number] [phone] FR GAMALIEL KAY PATIENT [facility] (WNR) MEDICARE ADVANTAGE [facility] ([facility]) Jul 31, 2023 [id number] GAMALIEL MACHADO PATIENT [facility] MCR (WNR) MEDICARE ADVANTAGE MCR (WNR) Jul 31, 2023 [id number] [phone] FR GAMALIEL KAY PATIENT Selected Encounter This section includes the information on [place] at [place] for the Encounter. Date/Time Encounter Type Encounter Description Reason Pro vider Source Feb 07, 2024 12:00 AM Outpatient Encounter EVENT (HISTORICAL) [...] 27, 2024 01:00 PM [facility] Apr 04, 2024 08:00 AM AMBULATORY - MEDICINE [facility] [place] [place] [facility] May 15, 2024 02:00 PM [facility] Jun 12, 2024 11:00 AM [facility] Jun 19, 2024 01:00 PM AMBULATORY - MEDICINE [facility] [place] [facility] Jun 25, 2024 02:30 PM AMBULATORY - MEDICINE [facility] [place] [place] [facility] Jul 30, 2024 03:30 PM [facility] Aug 07, 2024 01:00 PM AMBULATORY - MEDICINE [facility] [place] [place] [facility] Encounter Notes: All associated encounter notes This section contains the clinical notes associated to the Encounter. Date/Time Encounter Note(s) Provider Source Feb 07, 2024 12:00 AM NONVA NOTE: LOCAL TITLE: [facility] STANDARD TITLE: NONVA NOTE DATE OF NOTE: FEB 07, 2024 ENTRY DATE: MAR 27, 2024@08:35:19 AUTHOR: MAYANK MCCORMACK COSIGNER: URGENCY: STATUS: COMPLETED VistA Imaging - Scanned Document SCANNED DOCUMENT SIGNATURE NOT REQUIRED Electronically Filed: 03/27/2024 by: DONTE MCCORMACK House Detective DONTE MCCORMACK DE CNT [facility] Feb 07, 2024 12:00 AM NONVA NOTE: LOCAL TITLE: NON-VA OUTPATIENT NOTES STANDARD TITLE: NONVA NOTE DATE OF NOTE: FEB 07, 2024 ENTRY DATE: JUL 16, 2024@15:23:19 AUTHOR: VINOD CARDOZA EXP COSIGNER: URGENCY: STATUS: COMPLETED VistA Imaging - Scanned Document SCANNED DOCUMENT SIGNATURE NOT REQUIRED Electronically Filed: 07/16/2024 by: VINOD CARDOZA ADJUNCT PROFESSOR VINOD CARDOZA DE [facility]
--- OUTSIDE RECORDS SUMMARY | 2024-08-07 12:21 | XMS_ITS ---
Author Name [facility] [place] Organization [facility] [place] [facility] [place] Address [address] [place] [address] Care Team Providers Care Dairy Specialist Name Role Phone LENORA DEJESUS Primary [...] Jul 31, 2014 MEDICAR E SUPPLEM E [id number] [phone] FR GAMALIEL KAY PATIENT [facility] MEDICARE SUPPLEMEN [facility] MEDIC ARE SUPP Jul 31, 2014 SUPP [id number] [phone] FR GAMALIEL KAY PATIENT MEDICARE (WNR) MEDICARE (M) PART A Jan 29, 2004 PART A [id number] [phone] FR GAMALIEL KAY PATIENT MEDICARE (WNR) MEDICARE (M) PART B Jan 29, 2004 PART B [id number] [phone] FR GAMALIEL KAY PATIENT [facility] (WNR) MEDICARE [facility]AGE [facility] ([facility]) Jul 31, 2023 [id number] [phone] FR GAMALIEL KAY PATIENT [facility] (WNR) MEDICARE [facility]ANTAGE [facility] (WNR) Jul 31, 2023 [id number] [phone] FR GAMALIEL KAY PATIENT Selected Encounter This section includes the information on record at [place] for the Encounter. Date/Time Encounter Type Encounter Description Reason Pro vider Source Feb 26, 2024 02:56 PM Outpatient Encounter PRIMARY CARE/MEDICINE I[facility] Encounter [...] 27, 2024 01:00 PM AMBULATORY - MEDICINE [facility] ([facility]) Apr 04, 2024 08:00 AM AMBULATORY - [place]ICINE [place] [facility] [place] [facility] May 15, 2024 02:00 PM AMBULATORY - MEDICINE [facility] ([facility]) Jun 12, 2024 11:00 AM AMBULATORY - MEDICINE [facility] ([facility]) Jun 19, 2024 01:00 PM AMBULATORY - MEDICINE [place] [facility] [place] [place] [facility] Jun 25, 2024 02:30 PM AMBULATORY - MEDICINE [place] [facility] [place] [facility] Jul 30, 2024 03:30 PM [facility] ([facility]) Aug 07, 2024 01:00 PM AMBULATORY - MEDICINE [place] [facility] [place] [place] [facility] Aug 14, 2024 10:00 AM AMBULATORY - NONE [place] [facility] [place] [facility] Lab Results: +/- 30 days of the encounter This section includes the Chemistry and Hematology Lab Results on record with [place] for the patient. Radiology Reports and Pathology Reports are provided separately, in subsequent sections. Lab Results This section contains the Chemistry/Hematology Results that were resulted 30 days before or 30 daysafter the date of the Encounter. Date/Time Source Result Type Result - Unit Interpretation Reference Range Comment Mar 20, 2024 11:40 AM [facility]) MICROALBUMIN CREATININE RATIO PANEL Specimen Type: URINE No comment entered. Ordering Provider: FLYNN DEJESUS Report Released Date/Time: Mar 11, 2024 11:36 AM Reporting Lab: [address] [address] Performing Lab: [address] [address] MICROALBUMIN/C REATININE RATIO 13.3 mg/g 0-29.9 MICROALBUMIN,Q UANTITATIVE 2.0 mg/dL RR UNAVAIL CREATININE URINE 150.03 mg/dL Mar 20, 2024 11:40 AM [facility] ([facility]) URINALYSIS Specimen Type: URINE Comment: If Glucose = >500 and Ketones are positive, please alert the Physician. Ordering Provider: FLYNN DEJESUS Report Released Date/Time: Mar 11, 2024 11:36 AM Reporting Lab: [address] [address] Performing Lab: [address] [address] UA COLOR Yellow Yellow UA APPEARANCE Clear Clear UA GLUCOSE Normal mg/dL Negative UA KETONES NEGATIVE mg/dL Negative UA BLOOD NEGATIVE mg/dL Negative UA PROTEIN 10 mg/dL Negative UA NITRITE NEGATIVE mg/dL Negative UA BILIRUBIN NEGATIVE mg/dL Negative UA SPECIFIC GRAVITY 1.023 H 1.016-1.02 2 UA pH 6.0 5.0-9.0 UA UROBILINOGEN Normal mg/dL <2.0 UA LEUKOCYTE SMALL Negative Mar 20, 2024 11:40 AM [facility] ([facility]) MICROSCOPIC AUTOMATED, URINE Specimen Type: URINE Comment: If Glucose = >500 and Ketones are positive, please alert the Physician. Ordering Provider: FLYNN DEJESUS Report Released Date/Time: Mar 11, 2024 11:36 AM Reporting Lab: [address] [address] Performing Lab: [address] [phone] UA WBC 6-10 /[HPF] H 0-5 UA MUCUS FEW /[LPF] Trace UA RBC 0-2 /[HPF] 0-3 UA SQUAMOUS EPITH FEW /[HPF] Mar 20, 2024 11:28 AM [facility] ([facility]) VITAMIN B12 Specimen Type: SERUM No comment entered. Ordering Provider: FLYNN DEJESUS Report Released Date/Time: Mar 11, 2024 11:36 AM Reporting Lab: [facility] [address] [address] Performing Lab: [facility] [address] [address] VITAMIN B12 386 pg/mL 200-900 Mar 20, 2024 11:28 AM [facility] ([facility]) TSH Specimen Type: SERUM No comment entered. Ordering Provider: FLYNN DEJESUS Report Released Date/Time: Mar 11, 2024 11:36 AM Reporting Lab: [facility] [address] [address] Performing Lab: [facility] [address] [address] TSH 1.56 u[IU]/mL 0.35-5.00 Mar 20, 2024 11:28 AM [facility] ([facility]) VITAMIN D (25-OH) Specimen Type: SERUM No comment entered. Ordering Provider: FLYNN DEJESUS Report Released Date/Time: Mar 11, 2024 11:36 AM Reporting Lab: [facility] [address] [address] Performing Lab: [facility] [address] [address] VITAMIN D (25-OH) 29 ng/mL 20-50 Mar 20, 2024 11:28 AM [facility] ([facility]) LIVER FUNCTION Specimen Type: SERUM No comment entered. Ordering Provider: FLYNN DEJESUS Report Released Date/Time: Mar 11, 2024 11:36 AM Reporting Lab: [facility] [address] [address] Performing Lab: [facility] [address] [address] PROTEIN,TOTAL 6.9 g/dL 6.0-8.3 ALBUMIN 3.5 g/dL 3.5-5.0 ALKALINE PHOSPHATASE 79 U/L 40-150 AST 14 U/L 5-34 ALT <6 U/L BILIRUBIN, TOTAL 0.5 mg/dL 0.2-1.2 Mar 20, 2024 11:28 AM [facility] ([facility]) LIPID PANEL, NON FASTING Specimen Type: SERUM No comment entered. Ordering Provider: FLYNN DEJESUS Report Released Date/Time: Mar 11, 2024 11:36 AM Reporting Lab: [address] [address] Performing Lab: [address] [address] CHOLESTEROL 162 mg/dL TRIGLYCERIDE 115 mg/dL 0-150 LDL calculated 99 mg/dL 0-129 CHOL/HDL 4.1 HDL CHOLESTEROL 40 mg/dL 40-60 Mar 20, 2024 11:28 AM [facility] ([facility]) CBC AND DIFF (AUTO) Specimen Type: BLOOD No comment entered. Ordering Provider: FLYNN DEJESUS Report Released Date/Time: Mar 11, 2024 11:36 AM Reporting Lab: [address] [address] Performing Lab: [address] [address] WBC 6.97 10*3/uL 4.50-11.00 RBC 5.38 10*6/uL [...] 10*3/uL 0.00-0.00 Mar 20, 2024 11:27 AM [facility] HEMOGLOBIN A1C PANEL Specimen Type: BLOOD [...] Jan 30, 2024 01:20 PM Reporting Lab: [address] [address] Performing Lab: [address] [address] HEMOGLOBIN A1C 6.0 H 4.0-5.6 Mar 20, 2024 11:27 AM [facility] BASIC METABOLIC PANEL (non-fasting) Specimen Type: SERUM No comment entered. Ordering Provider: LORY CARPENTER Report Released Date/Time: Jan 30, 2024 01:20 PM Reporting Lab: [address] [address] Performing Lab: [address] [address] UREA NITROGEN 21 mg/dL 7-25 GLUCOSE 175 mg/dL H 65-100 SODIUM 139 mmol/L 135-145 POTASSIUM 4.0 mmol/L 3.5-5.0 CHLORIDE 104 mmol/L 100-110 CO2 25 meq/L 20-30 CREATININE, Serum 1.11 mg/dL 0.50-1.40 eGFR(CKD-EPI 2020) 67 mL/min >60 Encounter Notes: All associated encounter notes This section contains the clinical notes associated to the Encounter. Date/Time Encounter Note(s) Provider Source Feb 26, 2024 02:56 PM MEDICATION MGT NOT E: LOCAL TITLE: OUTPATIENT MEDICATION REQUEST STANDARD TITLE: MEDICATION MGT NOTE DATE OF NOTE: FEB 26, 2024@14:56 ENTRY DATE: FEB 26, 2024@14:56:15 AUTHOR: TODD DANIELS COSIGNER: URGENCY: STATUS: COMPLETED Medication Request Date of Request: Jan MED RENEWAL with Labs Received request for Medication: [place] Requests: METOPROLOL TARTRATE TAB 50MG TAKE ONE TABLET BY MOUTH TWICE DAILY FOR BLOOD PRESSURE/HEART Quantity: 180 Refills: 3 Indication: FOR HEART RATE CONTROL Requests for MAIL. Active Outpatient Medications (including Supplies): Issue Date Status Last Fill Active Outpatient Medications Refills Expiration 1) ACCU-CHEK GUIDE (GLUCOSE) TEST STRIP ACTIVE Issu:01-30-24 Qty: 50 for 180 days Sig: USE 1 STRIP Refills: 1 Last:01-30-24 TO TEST BLOOD SUGARS TWO TIMES A WEEK Expr:01-30-25 2) ACCU-CHEK GUIDE ME (GLUCOSE) METER Qty: ACTIVE Issu:01-30-24 1 for 30 days Sig: USE METER TO TEST Refills: 0 Last:01-30-24 BLOOD SUGARS ONCE DAILY NEEDED Expr:02-29-24 3) APIXABAN 5MG TAB Qty: 180 for 90 days ACTIVE Issu:08-18-23 Sig: TAKE ONE TABLET BY MOUTH TWICE Refills: 2 Last:01-26-24 DAILY Expr:08-18-24 4) CARBIDOPA 25/LEVODOPA 100MG TAB Qty: ACTIVE Issu:10-27-23 540 for 90 days Sig: TAKE 1 TABLET BY Refills: 3 Last:10-27-23 MOUTH THREE TIMES A DAY FOR 7 DAYS, Expr:10-27-24 THEN TAKE 2 TABLETS THREE TIMES A DAY FOR PARKINSON'S DISEASE 5) FLUTICASONE PROP 50MCG 120D NASAL INHL ACTIVE Issu:10-10-23 Qty: 3 for 90 days Sig: INSTILL 2 Refills: 3 Last:10-11-23 SPRAYS INTO EACH NOSTRIL ONCE DAILY Expr:10-10-24 6) FUROSEMIDE 20MG TAB Qty: 90 for 90 days ACTIVE Issu:09-19-23 Sig: TAKE ONE TABLET BY MOUTH ONCE Refills: 3 Last:09-19-23 DAILY TO REMOVE FLUID/CONTROL BLOOD Expr:09-19-24 PRESSURE 7) LANCET,SOFTCLIX Qty: 100 for 90 days ACTIVE Issu:01-30-24 Sig: USE 1 LANCET DIRECTED TWO Refills: 1 Last:01-30-24 TIMES A WEEK TO TEST BLOOD SUGAR Expr:01-30-25 8) LIDOCAINE 5% PATCH Qty: 90 for 90 days ACTIVE Issu:10-10-23 Sig: APPLY 1 PATCH TOPICALLY ONCE Refills: 1 Last:10-11-23 DAILY NEEDED FOR NERVE PAIN (LEAVE Expr:10-10-24 PATCH ON FOR 12 HOURS, THEN REMOVE PATCH) 9) SITAGLIPTIN (EQV-ZITUVIO) 100MG TAB ACTIVE Issu:01-30-24 Qty: 30 for 30 days Sig: TAKE ONE Refills: 3 Last:01-30-24 TABLET BY MOUTH ONCE DAILY Expr:01-30-25 Medication (Local) Status - METOPROLOL TARTRATE 50MG TAB Directions: TAKE ONE TABLET BY MOUTH TWICE DAILY FOR BLOOD PRESSURE/HEART Quantity: 180 for 90 days Provider: ALEXA WALKER Expires: 02/10/24 Status: Medication (Remote) Status -- No remote medications found. LABS ==== CHEM 7 TREND LAB CUMULATIVE SELECTED Collection DT Spec GLUCOSE BUN CREATIN Sodium K+/Pot CL CO2 09/13/2023 13:18 SERUM 120 H 23 1.15 138 3.9 104 25 05/12/2023 08:42 SERUM 169 H 20 1.19 141 5.0 106 26 11/23/2022 13:38 SERUM 161 H 16 1.08 138 4.3 104 25 04/13/2022 13:19 SERUM 132 H 17 1.06 138 4.3 104 26 10/26/2021 11:03 SERUM 1.17 LAB CUMULATIVE SELECTED 2 No selection items chosen for this component. CHEM 7 Results Collection DT Spec Sodium K+/Pot CL CO2 GLUCOSE BUN 09/13/2023 13:18 SERUM 138 3.9 104 25 120 H 23 05/12/2023 08:42 SERUM 141 5.0 106 26 169 H 20 11/23/2022 13:38 SERUM 138 4.3 104 25 161 H 16 04/13/2022 13:19 SERUM 138 4.3 104 26 132 H 17 10/26/2021 11:03 SERUM 138 4.4 101 26 171 H 18 05/25/2021 10:32 SERUM 142 4.4 103 28 133 H 22 == = CBC TREND Collection DT Spec WBC RBC HGB HCT MCV MCH PLT 09/13/2023 13:18 BLOOD 8.48 5.71 H 16.6 49.8 87.2 29.1 242 05/12/2023 08:42 BLOOD 8.06 5.48 16.2 49.2 89.8 29.6 248 11/23/2022 13:38 BLOOD 9.56 5.50 16.2 48.7 88.5 29.5 238 04/13/2022 13:19 BLOOD 7.46 5.28 15.2 45.4 86.0 28.8 227 10/26/2021 11:03 BLOOD 10.14 5.47 16.3 49.1 89.8 29.8 294 == = HEMOGLOBIN A1C TREND Collection DT Spec HGBA1c 09/13/2023 13:18 BLOOD 6.6 H 05/12/2023 08:42 BLOOD 6.4 H 11/23/2022 13:38 BLOOD 6.6 H 04/13/2022 13:19 BLOOD 6.0 H 10/26/2021 11:03 BLOOD 6.5 H == = LIPID PANEL TREND Collection DT Spec CHOL HDL CHO/HDL LDL-c TRIG 09/13/2023 13:18 SERUM 181 40 4.5 113 142 05/12/2023 08:42 SERUM 170 43 4.0 108 97 11/23/2022 13:38 SERUM 190 37 L 5.1 128 124 04/13/2022 13:19 SERUM 180 40 4.5 124 79 10/26/2021 11:03 SERUM 173 37 L 4.7 116 99 == = UREA NITROGEN 09/13/23 13:18 23 05/12/23 08:42 20 CREATININE-EGFR 09/13/23 13:18 1.15 05/12/23 08:42 1.19 == = LIVER PANEL TREND Collection DT Spec AST ALT T BILI ALK MARLENY T. PROT ALBUMIN 09/13/2023 13:18 SERUM 16 6 0.8 82 7.1 3.8 05/12/2023 08:42 SERUM 16 18 comment 81 7.1 3.8 11/23/2022 13:38 SERUM 16 18 1.0 77 7.0 3.9 04/13/2022 13:19 SERUM 16 <6 0.9 81 6.8 3.7 10/26/2021 11:03 SERUM 14 7 0.7 79 6.8 3.6 == = PSA TREND No data available == = TESTOSTERONE No data available == = Collection DT Spec TSH 09/13/2023 13:18 SERUM 1.81 == ANEMIA PANEL TREND Collection DT Spec B12 SR- HCT 09/13/2023 13:18 BLOOD 49.8 09/13/2023 13:18 SERUM 359 05/12/2023 08:42 BLOOD 49.2 05/12/2023 08:42 SERUM comment 11/23/2022 13:38 BLOOD 48.7 == = PT INR TREND Collection DT Spec INR PT 10/26/2021 11:03 PLASM 1.5 16.8 H == = Upcoming Appointment: 03/27/2024 13:00 CWM/GO/PACT 1 WH 04/08/2024 15:30 CWM/GO/TELE/PHARM/PACT 1 06/25/2024 14:30 NHM/OPTOMETRY/DONALDSON/ 10/07/2024 14:30 CWM/GO/DERMATOLGY A CONTACT PHONE NUMBER [CELLULAR] - NONE FOUND PATIENT PHONE - [Landline] /es/ TODD DANIELS RN REGISTERED NURSE Signed: 02/26/2024 14:57 Receipt Acknowledged By: 02/26/2024 16:10 /kasia/ LENORA DEJESUS MD PHYSICIAN TODD DANIELS ([facility])
--- OUTSIDE RECORDS SUMMARY | 2024-08-07 12:21 | XMS_ITS | Encounter Summary ---
Author Name [facility] [place] Address [address] [place] [address] Care Team Providers Care Field Coil Winder Name Role Phone LENORA DEJESUS Primary Care [...] Jul 31, 2014 MEDICAR E SUPPLEM E [id number] [phone] FR GAMALIEL KAY PATIENT [facility] MEDICARE SUPPLEMEN [facility] MEDIC ARE SUPP Jul 31, 2014 SUPP [id number] [phone] FR GAMALIEL KAY PATIENT MEDICARE (WNR) MEDICARE (M) PART A Jan 29, 2004 PART A [id number] [phone] FR GAMALIEL KAY PATIENT MEDICARE (WNR) MEDICARE (M) PART B Jan 29, 2004 PART B [id number] [phone] FR GAMALIEL KAY PATIENT [facility] (WNR) MEDICARE ADVANTAGE [facility] Jul 31, 2023 [id number] [phone] FR GAMALIEL KAY PATIENT [facility] (WNR) MEDICARE ADVANTAGE [facility] (WNR) Jul 31, 2023 [id number] [phone] FR GAMALIEL KAY PATIENT Selected Encounter This section includes the information on record at [place] for the Encounter. Date/Time Encounter Type Encounter Description Reason Pro vider Source Mar 15, 2024 03:27 PM Outpatient Encounter PRIMARY CARE/MEDICINE IHE Encounter Template Text not used by [place] Plan of Treatment: Future Appointments (+ 6 [...] 27, 2024 01:00 PM [facility] Apr 04, 2024 08:00 AM AM[place]ULATORY [place]ICINE [place] [facility] May 15, 2024 02:00 PM [facility] Jun 12, 2024 11:00 AM AMBULATORY - MEDICINE [facility] ([facility]) Jun 19, 2024 01:00 PM AMBULATORY [place]ICINE [place] [facility] Jun 25, 2024 02:30 PM AM[place]ULATORY [place]ICINE [place] [facility] Jul 30, 2024 03:30 PM [facility] Aug 07, 2024 01:00 PM AMBULATORY [place]ICINE [place] [facility] Aug 14, 2024 10:00 AM AMBULATORY - NONE [place] [facility] Sep 02, 2024 03:30 PM AMBULATORY - [place]ICINE [place] [facility] Lab Results: +/- 30 days of the encounter This section includes the Chemistry and Hematology Lab Results on record with [place] for the patient. Radiology Reports and Pathology Reports are provided separately, in subsequent sections. Lab Results This section contains the Chemistry/Hematology Results that were resulted 30 days before or 30 daysafter the date of the Encounter. Date/Time Source Result Type Result - Unit Interpretation Reference Range Comment Mar 20, 2024 11:40 AM [place] ([facility]) MICROALBUMIN CREATININE RATIO PANEL Specimen Type: URINE No comment entered. Ordering Provider: FLYNN DEJESUS Report Released Date/Time: Mar 11, 2024 11:36 AM Reporting Lab: [address] [address] Performing Lab: [address] [address] MICROALBUMIN/C REATININE RATIO 13.3 mg/g 0-29.9 MICROALBUMIN,Q UANTITATIVE 2.0 mg/dL RR UNAVAIL CREATININE URINE 150.03 mg/dL Mar 20, 2024 11:40 AM [place] ([facility]) URINALYSIS Specimen Type: URINE Comment: If Glucose = >500 and Ketones are positive, please alert the Physician. Ordering Provider: FLYNN DEJESUS Report Released Date/Time: Mar 11, 2024 11:36 AM Reporting Lab: [address] [address] Performing Lab: [address] [address] UA COLOR Yellow Yellow UA APPEARANCE Clear Clear UA GLUCOSE Normal mg/dL Negative UA KETONES NEGATIVE mg/dL Negative UA BLOOD NEGATIVE mg/dL Negative UA PROTEIN 10 mg/dL Negative UA NITRITE NEGATIVE mg/dL Negative UA BILIRUBIN NEGATIVE mg/dL Negative UA SPECIFIC GRAVITY 1.023 H 1.016-1.02 2 UA pH 6.0 5.0-9.0 UA UROBILINOGEN Normal mg/dL <2.0 UA LEUKOCYTE SMALL Negative Mar 20, 2024 11:40 AM [place] ([facility]) MICROSCOPIC AUTOMATED, URINE Specimen Type: URINE Comment: If Glucose = >500 and Ketones are positive, please alert the Physician. Ordering Provider: FLYNN DEJESUS Report Released Date/Time: Mar 11, 2024 11:36 AM Reporting Lab: [address] [address] Performing Lab: [address] [address] UA WBC 6-10 /[HPF] H 0-5 UA MUCUS FEW /[LPF] Trace UA RBC 0-2 /[HPF] 0-3 UA SQUAMOUS EPITH FEW /[HPF] Mar 20, 2024 11:28 AM [place] ([facility]) VITAMIN B12 Specimen Type: SERUM No comment entered. Ordering Provider: FLYNN DEJESUS Report Released Date/Time: Mar 11, 2024 11:36 AM Reporting Lab: [facility] [address] [address] Performing Lab: [facility] [address] [address] VITAMIN B12 386 pg/mL 200-900 Mar 20, 2024 11:28 AM [place] ([facility]) VITAMIN D (25-OH) Specimen Type: SERUM No comment entered. Ordering Provider: FLYNN DEJESUS Report Released Date/Time: Mar 11, 2024 11:36 AM Reporting Lab: [facility] [address] [address] Performing Lab: [facility] [address] [address] VITAMIN D (25-OH) 29 ng/mL 20-50 Mar 20, 2024 11:28 AM [place] ([facility]) TSH Specimen Type: SERUM No comment entered. Ordering Provider: FLYNN DEJESUS Report Released Date/Time: Mar 11, 2024 11:36 AM Reporting Lab: [facility] [address] [address] Performing [facility] [address] TSH 1.56 u[IU]/mL 0.35-5.00 Mar 20, 2024 11:28 AM [place] ([facility]) LIPID PANEL, NON FASTING Specimen Type: SERUM No comment entered. Ordering Provider: FLYNN DEJESUS Report Released Date/Time: Mar 11, 2024 11:36 AM Reporting Lab: [address] [address] Performing Lab: [facility] [address] [address] CHOLESTEROL 162 mg/dL TRIGLYCERIDE 115 mg/dL 0-150 LDL calculated 99 mg/dL 0-129 CHOL/HDL 4.1 HDL CHOLESTEROL 40 mg/dL 40-60 Mar 20, 2024 11:28 AM [place] ([facility]) LIVER FUNCTION Specimen Type: SERUM No comment entered. Ordering Provider: FLYNN DEJESUS Report Released Date/Time: Mar 11, 2024 11:36 AM Reporting Lab: [address] [address] Performing Lab: [address] [address] PROTEIN,TOTAL 6.9 g/dL 6.0-8.3 ALBUMIN 3.5 g/dL 3.5-5.0 ALKALINE PHOSPHATASE 79 U/L 40-150 AST 14 U/L 5-34 ALT <6 U/L BILIRUBIN, TOTAL 0.5 mg/dL 0.2-1.2 Mar 20, 2024 11:28 AM [place] ([facility]) CBC AND DIFF (AUTO) Specimen Type: BLOOD No comment entered. Ordering Provider: FLYNN DEJESUS Report Released Date/Time: Mar 11, 2024 11:36 AM Reporting Lab: [address] [address] Performing Lab: [address] [address] WBC 6.97 10*3/uL 4.50-11.00 RBC 5.38 10*6/uL [...] 10*3/uL 0.00-0.00 Mar 20, 2024 11:27 AM [facility] HEMOGLOBIN A1C PANEL Specimen Type: BLOOD [...] Jan 30, 2024 01:20 PM Reporting Lab: [facility] [address] [address] Performing Lab: [address] [address] HEMOGLOBIN A1C 6.0 H 4.0-5.6 Mar 20, 2024 11:27 AM [facility] BASIC METABOLIC PANEL (non-fasting) Specimen Type: SERUM No comment entered. Ordering Provider: LORY CARPENTER Report Released Date/Time: Jan 30, 2024 01:20 PM Reporting Lab: [facility] [address] [facility] [address] Performing Lab: [address] [address] UREA NITROGEN 21 mg/dL 7-25 GLUCOSE 175 mg/dL H 65-100 SODIUM 139 mmol/L 135-145 POTASSIUM 4.0 mmol/L 3.5-5.0 CHLORIDE 104 mmol/L 100-110 CO2 25 meq/L 20-30 CREATININE, Serum 1.11 mg/dL 0.50-1.40 eGFR(CKD-EPI 2020) 67 mL/min >60 Encounter Notes: All associated encounter notes This section contains the clinical notes associated to the Encounter. Date/Time Encounter Note(s) Provider Source Mar 15, 2024 03:27 PM NONVA NOTE: LOCAL TITLE: NON-VA MEDICAL RECORD SUMMARY STANDARD TITLE: NONVA NOTE DATE OF NOTE: MAR 15, 2024@15:27 ENTRY DATE: MAR 15, 2024@15:27:15 AUTHOR: TODD DANIELS COSIGNER: URGENCY: STATUS: COMPLETED COPIED & PASTED FROM WOUND CARE NOTES [facility] Date of Encounter: 03/13/2024 Author: Tamra YANEZ This information was obtained from the Patient. Jose is 83 years of age. He is diabetic. He has a pacemaker. 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 He presented with the [place] boot last week but is unable to appreciate its benefits because he questions the fit. I showed him that it was quite adequate but he insists still that it is too long and cumbersome and would like to obtain another one through the [facility]. All of this time he does not have proper help and nursing is incomplete and inconsistent. At many times he is simply walking without the [place] boot. His problem is almost unsolvable. he does not have any help at present and he cannot wear his [place] boot nor does he want to. He has resumed wearing her Darco shoe with a custom insert that was obviously fashioned well before the deformity proceeded to the degree that it is now. Recent inadvertent tear of the skin about his leg on the left has left him with a venous ulcer in the face of swelling and this minor trauma has not provided us with a full-thickness wound that will be our next problem. He has essentially no help he is not getting enough visitation from medical assistance and I am afraid his family seems to be neglecting him. He lives alone and is deteriorating. Treatment alternatives are self-directed and he is in the hands of both a primary care doctor here and then the veterans administration doctor. He does not have enough frequency of visits available to him for caregivers and he is living essentially independently. Vascular/Neuropathy Assessment The wound about his leg is a little worse than it is full-thickness and an obvious venous ulcer. He has some threatened skin breakdown on the dorsum of his right foot but no open wound on the side. 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 This is also a full-thickness wound and one that we will probably never heal. Active Problems I fear he may lose his limb more his life. I have urged him to engage his family both of whom are professional children in the medical field and also seek help from the veterans administration. I think he can no longer live at home and I am hoping that he is able to avail himself of an opportunity to reside in a nursing home facility. Additional Orders: Follow-Up Appointments Return Appointment in 1 week - 03/20/24 @ 1:00pm Wound Healing goals I am hoping that he can be admitted to a SNF. We are recommending an Unna boot, and hoping a visiting nurse can reapply one in 2 days. I am afraid he is being mistreated and I will I am counting on visits from his family members to have them recognize that he needs to be in the care of others not be self-sufficient any longer. /kasia/ TODD DANIELS, FAMILIA REGISTERED NURSE Signed: 03/15/2024 15:43 Receipt Acknowledged By: 03/18/2024 12:22 /kasia/ LENORA DEJESUS MD PHYSICIAN TODD DANIELS ([facility])
--- OUTSIDE RECORDS SUMMARY | 2024-08-07 12:21 | XMS_ITS | Encounter Summary ---
Author Name [facility] [place] Address [address] [place] [address] Care Team Providers Care Smoked Meat Preparer Name Role Phone LENORA DEJESUS Primary Care [...] Jul 31, 2014 MEDICAR E SUPPLEM E [id number] [phone] FR GAMALIEL KAY PATIENT [facility] MEDICARE SUPPLEMEN [place] MEDIC ARE SUPP Jul 31, 2014 SUPP [id number] [phone] FR GAMALIEL KAY PATIENT MEDICARE (WNR) MEDICARE (M) PART A Jan 29, 2004 PART A [id number] [phone] FR GAMALIEL KAY PATIENT MEDICARE (WNR) MEDICARE (M) PART B Jan 29, 2004 PART B [id number] [phone] FR GAMALIEL KAY PATIENT [facility] (WNR) MEDICARE ADVANTAGE [facility] ([facility]) Jul 31, 2023 [id number] [phone] FR GAMALIEL KAY PATIENT [facility] (WNR) MEDICARE ADVANTAGE [facility] (WNR) Jul 31, 2023 [id number] [phone] FR GAMALIEL KAY PATIENT Selected Encounter This section includes the information on record at [place] for the Encounter. Date/Time Encounter Type Encounter Description Reason Provider Source Feb 23, 2024 10:08 AM Outpatient Encounter PROSTHETICS/ORTHOTI CS LENORA DEJESUS Encounter Template Text not used by [place] [...] 27, 2024 01:00 PM [facility]) Apr 04, 2024 08:00 AM AMBULATORY - MEDICINE [place] [facility] May 15, 2024 02:00 PM [facility] ([facility]) Jun 12, 2024 11:00 AM [facility] ([facility]) Jun 19, 2024 01:00 PM AMBULATORY - MEDICINE [place] [facility] Jun 25, 2024 02:30 PM AMBULATORY - MEDICINE [place] [facility] Jul 30, 2024 03:30 PM [facility] Aug 07, 2024 01:00 PM AMBULATORY - MEDICINE [place] [facility] Aug 14, 2024 10:00 AM AMBULATORY - NONE [place] [facility] Lab Results: +/- 30 days of the encounter This section includes the Chemistry and Hematology Lab Results on record with [place] for the patient. Radiology Reports and Pathology Reports are provided separately, in subsequent sections. Lab Results This section contains the Chemistry/Hematology Results that were resulted 30 days before or 30 daysafter the date of the Encounter. Date/Time Source Result Type Result - Unit Interpretation Reference Range Comment Mar 20, 2024 11:40 AM [place] ([facility]) MICROALBUMIN CREATININE RATIO PANEL Specimen Type: URINE No comment entered. Ordering Provider: FLYNN DEJESUS Report Released Date/Time: Mar 11, 2024 11:36 AM Reporting Lab: [address] [address] Performing Lab: [address] [address] MICROALBUMIN/C REATININE RATIO 13.3 mg/g 0-29.9 MICROALBUMIN,Q UANTITATIVE 2.0 mg/dL RR UNAVAIL CREATININE URINE 150.03 mg/dL Mar 20, 2024 11:40 AM [place] ([facility]) URINALYSIS Specimen Type: URINE Comment: If Glucose = >500 and Ketones are positive, please alert the Physician. Ordering Provider: FLYNN DEJESUS Report Released Date/Time: Mar 11, 2024 11:36 AM Reporting Lab: [address] [address] Performing Lab: [address] [address] UA COLOR Yellow Yellow UA APPEARANCE Clear Clear UA GLUCOSE Normal mg/dL Negative UA KETONES NEGATIVE mg/dL Negative UA BLOOD NEGATIVE mg/dL Negative UA PROTEIN 10 mg/dL Negative UA NITRITE NEGATIVE mg/dL Negative UA BILIRUBIN NEGATIVE mg/dL Negative UA SPECIFIC GRAVITY 1.023 H 1.016-1.02 2 UA pH 6.0 5.0-9.0 UA UROBILINOGEN Normal mg/dL <2.0 UA LEUKOCYTE SMALL Negative Mar 20, 2024 11:40 AM [place] ([facility]) MICROSCOPIC AUTOMATED, URINE Specimen Type: URINE Comment: If Glucose = >500 and Ketones are positive, please alert the Physician. Ordering Provider: FLYNN DEJESUS Report Released Date/Time: Mar 11, 2024 11:36 AM Reporting Lab: [address] [address] Performing Lab: [address] [address] UA WBC 6-10 /[HPF] H 0-5 UA MUCUS FEW /[LPF] Trace UA RBC 0-2 /[HPF] 0-3 UA SQUAMOUS EPITH FEW /[HPF] Mar 20, 2024 11:28 AM [place] ([facility]) VITAMIN B12 Specimen Type: SERUM No comment entered. Ordering Provider: FLYNN DEJESUS Report Released Date/Time: Mar 11, 2024 11:36 AM Reporting Lab: [address] [address] Performing Lab: [address] [address] VITAMIN B12 386 pg/mL 200-900 Mar 20, 2024 11:28 AM [place] ([facility]) VITAMIN D (25-OH) Specimen Type: SERUM No comment entered. Ordering Provider: FLYNN DEJESUS Report Released Date/Time: Mar 11, 2024 11:36 AM Reporting Lab: [address] [address] Performing Lab: [address] [address] VITAMIN D (25-OH) 29 ng/mL 20-50 Mar 20, 2024 11:28 AM [place] ([facility]) TSH Specimen Type: SERUM No comment entered. Ordering Provider: FLYNN DEJESUS Report Released Date/Time: Mar 11, 2024 11:36 AM Reporting Lab: [address] [address] Performing Lab: [address] [address] TSH 1.56 u[IU]/mL 0.35-5.00 Mar 20, 2024 11:28 AM [place] ([facility]) LIVER FUNCTION Specimen Type: SERUM No comment entered. Ordering Provider: FLYNN DEJESUS Report Released Date/Time: Mar 11, 2024 11:36 AM Reporting Lab: [address] [address] Performing Lab: [address] [address] PROTEIN,TOTAL 6.9 g/dL 6.0-8.3 ALBUMIN 3.5 g/dL 3.5-5.0 ALKALINE PHOSPHATASE 79 U/L 40-150 AST 14 U/L 5-34 ALT <6 U/L BILIRUBIN, TOTAL 0.5 mg/dL 0.2-1.2 Mar 20, 2024 11:28 AM [place] ([facility]) LIPID PANEL, NON FASTING Specimen Type: SERUM No comment entered. Ordering Provider: FLYNN DEJESUS Report Released Date/Time: Mar 11, 2024 11:36 AM Reporting Lab: [address] [address] Performing Lab: [address] [address] CHOLESTEROL 162 mg/dL TRIGLYCERIDE 115 mg/dL 0-150 LDL calculated 99 mg/dL 0-129 CHOL/HDL 4.1 HDL CHOLESTEROL 40 mg/dL 40-60 Mar 20, 2024 11:28 AM [place] ([facility]) CBC AND DIFF (AUTO) Specimen Type: BLOOD No comment entered. Ordering Provider: FLYNN DEJESUS Report Released Date/Time: Mar 11, 2024 11:36 AM Reporting Lab: [address] [address] Performing Lab: [address] [address] WBC 6.97 10*3/uL 4.50-11.00 RBC 5.38 10*6/uL [...] 10*3/uL 0.00-0.00 Mar 20, 2024 11:27 AM [facility] HEMOGLOBIN A1C PANEL Specimen Type: BLOOD [...] Jan 30, 2024 01:20 PM Reporting Lab: [address] [address] Performing Lab: [address] [address] HEMOGLOBIN A1C 6.0 H 4.0-5.6 Mar 20, 2024 11:27 AM [facility] BASIC METABOLIC PANEL (non-fasting) Specimen Type: SERUM No comment entered. Ordering Provider: LORY CARPENTER Report Released Date/Time: Jan 30, 2024 01:20 PM Reporting Lab: [facility] [address] [facility] [address] Performing Lab: [address] [address] UREA NITROGEN 21 mg/dL 7-25 GLUCOSE 175 mg/dL H 65-100 SODIUM 139 mmol/L 135-145 POTASSIUM 4.0 mmol/L 3.5-5.0 CHLORIDE 104 mmol/L 100-110 CO2 25 meq/L 20-30 CREATININE, Serum 1.11 mg/dL 0.50-1.40 eGFR(CKD-EPI 2020) 67 mL/min >60
--- OUTSIDE RECORDS SUMMARY | 2024-08-07 12:21 | XMS_ITS | Encounter Summary ---
Author Name [facility] [place] Address [address] [place] [address] Care Team Providers Care Hospitality Host Name Role Phone LENORA DEJESUS Primary Care [...] Jul 31, 2014 MEDICAR E SUPPLEM E [id number] FR GAMALIEL KAY PATIENT [facility] MEDICARE SUPPLEMEN [place] MEDIC ARE SUPP Jul 31, 2014 SUPP [id number] [phone] FR GAMALIEL KAY PATIENT MEDICARE (WNR) MEDICARE (M) PART A Jan 29, 2004 PART A [id number] [phone] FR GAMALIEL KAY PATIENT MEDICARE (WNR) MEDICARE (M) PART B Jan 29, 2004 PART B [id number] [phone] FR GAMALIEL KAY PATIENT [facility] (WNR) MEDICARE ADVANTAGE [facility] ([facility] Jul 31, 2023 [id number] [phone] FR GAMALIEL KAY PATIENT [facility] (WNR) MEDICARE ADVANTAGE [facility] (WNR) Jul 31, 2023 [id number] [phone] [id number] FR GAMALIEL KAY PATIENT Selected Encounter This section includes the information on record at [place] for the Encounter. Date/Time Encounter Type Encounter Description Reason Pro vider Source Feb 03, 2024 12:00 AM Outpatient Encounter EVENT (HISTORICAL) IHE Encounter Template Text not used by [place] Plan of Treatment: Future Appointments (+ 6 [...] 2024 01:00 PM [facility] Apr 04, 2024 08:00 AM AMBULATORY - MEDICINE [facility] [place] [facility] May 15, 2024 02:00 PM [facility] Jun 12, 2024 11:00 AM [facility] Jun 19, 2024 01:00 PM AMBULATORY - MEDICINE [facility] [place] [facility] Jun 25, 2024 02:30 PM AMBULATORY - MEDICINE [facility] [place] [facility] Jul 30, 2024 03:30 PM [facility] Encounter Notes: All associated encounter notes This section contains the clinical notes associated to the Encounter. Date/Time Encounter Note(s) Provider Source Feb 03, 2024 12:00 AM NONVA NOTE: LOCAL TITLE: NON-[facility] STANDARD TITLE: NONVA NOTE DATE OF NOTE: FEB 03, 2024 ENTRY DATE: MAR 06, 2024@08:14:05 AUTHOR: MAYANK MCCORMACK COSIGNER: URGENCY: STATUS: COMPLETED VistA Imaging - Scanned Document SCANNED DOCUMENT SIGNATURE NOT REQUIRED Electronically Filed: 03/06/2024 by: DONTE MCCORMACK Children'S Attendant DONTE MCCORMACK [facility]
--- OUTSIDE RECORDS SUMMARY | 2024-08-07 12:21 | XMS_ITS | Encounter Summary ---
Author Name [facility] [facility] [place] [facility] [place] Address [address] [place] [address] Care Team Providers Care Photographer Aerial Name Role Phone LENORA DEJESUS Primary Care [...] Jul 31, 2014 MEDICAR E SUPPLEM E [id number] [phone] FR GAMALIEL KAY PATIENT [facility] MEDICARE SUPPLEMEN [place]ANGELIST[place] MEDIC ARE SUPP Jul 31, 2014 SUPP [id number] [phone] FR GAMALIEL KAY PATIENT MEDICARE (WNR) MEDICARE (M) PART A Jan 29, 2004 PART A [id number] [phone] FR GAMALIEL KAY PATIENT MEDICARE (WNR) MEDICARE (M) PART B Jan 29, 2004 PART B [id number] [phone] FR GAMALIEL KAY PATIENT [facility] (WNR) MEDICARE ADVANTAGE [facility] ([facility]) Jul 31, 2023 [id number] [phone] FR GAMALIEL KAY PATIENT [facility] MCR (WNR) MEDICARE ADVANTAGE MCR (WNR) Jul 31, 2023 [id number] [phone] FR GAMALIEL KAY PATIENT Selected Encounter This section includes the information on record at [place] for the Encounter. Date/Time Encounter Type Encounter Description Reason Pro vider Source Feb 26, 2024 12:05 PM Outpatient Encounter ADMIN PAT ACTIVTIES (MASNONCT) IHE Encounter Template Text not used by [place] Plan of Treatment: Future Appointments (+ 6 months) and Future Tests (+/- 45 days) The Plan of Treatment section includes future care activities for the patient from all [place] treatmentfacilities. This section includes future appointments and future orders which are active, pending or scheduled. Future Appointments This section includes appointments that were scheduled to occur 6 months from the date of the Encounter, up to a maximum of 20 appointments. The data comes from all [place] treatment facilities. Appointment Date/Time Appointment Type Appointme nt Facility Name Mar 27, 2024 01:00 PM [facility] Apr 04, 2024 08:00 AM [place]UL[place]ORY [place]ICINE [place] [facility] May 15, 2024 02:00 PM [facility] Jun 12, 2024 11:00 AM AMBULATORY - MEDICINE [facility] ([facility]) Jun 19, 2024 01:00 PM AMBULATORY - [place]ICINE [place] [facility] Jun 25, 2024 02:30 PM AMBULATORY - MEDICINE [place] [facility] Jul 30, 2024 03:30 PM [facility] Aug 07, 2024 01:00 PM AMBULATORY - MEDICINE [place] [facility] Aug 14, 2024 10:00 AM AMBULATORY - NONE [place] [facility] Lab Results: +/- 30 days of the encounter This section includes the Chemistry and Hematology Lab Results on record with [place] for the patient. Radiology Reports and Pathology Reports are provided separately, in subsequent sections. Lab Results This section contains the Chemistry/Hematology Results that were resulted 30 days before or 30 daysafter the date of the Encounter. Date/Time Source Result Type Result - Unit Interpretation Reference Range Comment Mar 20, 2024 11:40 AM [facility] ([facility]) MICROALBUMIN CREATININE RATIO PANEL Specimen Type: URINE No comment entered. Ordering Provider: FLYNN DEJESUS Report Released Date/Time: Mar 11, 2024 11:36 AM Reporting Lab: [address] [address] Performing Lab: [address] [address] MICROALBUMIN/C REATININE RATIO 13.3 mg/g 0-29.9 MICROALBUMIN,Q UANTITATIVE 2.0 mg/dL RR UNAVAIL CREATININE URINE 150.03 mg/dL Mar 20, 2024 11:40 AM [facility] ([facility]) URINALYSIS Specimen Type: URINE Comment: If Glucose = >500 and Ketones are positive, please alert the Physician. Ordering Provider: FLYNN DEJESUS Report Released Date/Time: Mar 11, 2024 11:36 AM Reporting Lab: [address] [address] Performing Lab: [address] [address] UA COLOR Yellow Yellow UA APPEARANCE Clear Clear UA GLUCOSE Normal mg/dL Negative UA KETONES NEGATIVE mg/dL Negative UA BLOOD NEGATIVE mg/dL Negative UA PROTEIN 10 mg/dL Negative UA NITRITE NEGATIVE mg/dL Negative UA BILIRUBIN NEGATIVE mg/dL Negative UA SPECIFIC GRAVITY 1.023 H 1.016-1.02 2 UA pH 6.0 5.0-9.0 UA UROBILINOGEN Normal mg/dL <2.0 UA LEUKOCYTE SMALL Negative Mar 20, 2024 11:40 AM [facility] ([facility]) MICROSCOPIC AUTOMATED, URINE Specimen Type: URINE Comment: If Glucose = >500 and Ketones are positive, please alert the Physician. Ordering Provider: FLYNN DEJESUS Report Released Date/Time: Mar 11, 2024 11:36 AM Reporting Lab: [address] [address] Performing Lab: [address] [address] UA WBC 6-10 /[HPF] H 0-5 UA MUCUS FEW /[LPF] Trace UA RBC 0-2 /[HPF] 0-3 UA SQUAMOUS EPITH FEW /[HPF] Mar 20, 2024 11:28 AM [facility] ([facility]) VITAMIN B12 Specimen Type: SERUM No comment entered. Ordering Provider: FLYNN DEJESUS Report Released Date/Time: Mar 11, 2024 11:36 AM Reporting Lab: [address] [address] Performing Lab: [address] [address] VITAMIN B12 386 pg/mL 200-900 Mar 20, 2024 11:28 AM [facility] ([facility]) VITAMIN D (25-OH) Specimen Type: SERUM No comment entered. Ordering Provider: FLYNN DEJESUS Report Released Date/Time: Mar 11, 2024 11:36 AM Reporting Lab: [address] [address] Performing Lab: [address] [address] VITAMIN D (25-OH) 29 ng/mL 20-50 Mar 20, 2024 11:28 AM [facility] ([facility]) TSH Specimen Type: SERUM No comment entered. Ordering Provider: FLYNN DEJESUS Report Released Date/Time: Mar 11, 2024 11:36 AM Reporting Lab: [address] [address] Performing Lab: [address] [address] TSH 1.56 u[IU]/mL 0.35-5.00 Mar 20, 2024 11:28 AM [facility] ([facility]) LIVER FUNCTION Specimen Type: SERUM No comment entered. Ordering Provider: FLYNN DEJESUS Report Released Date/Time: Mar 11, 2024 11:36 AM Reporting Lab: [address] [address] Performing Lab: [address] [address] PROTEIN,TOTAL 6.9 g/dL 6.0-8.3 ALBUMIN 3.5 g/dL 3.5-5.0 ALKALINE PHOSPHATASE 79 U/L 40-150 AST 14 U/L 5-34 ALT <6 U/L BILIRUBIN, TOTAL 0.5 mg/dL 0.2-1.2 Mar 20, 2024 11:28 AM [facility] ([facility]) LIPID PANEL, NON FASTING Specimen Type: SERUM No comment entered. Ordering Provider: FLYNN DEJESUS Report Released Date/Time: Mar 11, 2024 11:36 AM Reporting Lab: [address] [address] Performing Lab: [address] [address] CHOLESTEROL 162 mg/dL TRIGLYCERIDE 115 mg/dL 0-150 LDL calculated 99 mg/dL 0-129 CHOL/HDL 4.1 HDL CHOLESTEROL 40 mg/dL 40-60 Mar 20, 2024 11:28 AM [facility] ([facility]) CBC AND DIFF (AUTO) Specimen Type: BLOOD No comment entered. Ordering Provider: FLYNN DEJESUS Report Released Date/Time: Mar 11, 2024 11:36 AM Reporting Lab: [address] [address] Performing Lab: [address] [address] WBC 6.97 10*3/uL 4.50-11.00 RBC 5.38 10*6/uL [...] 10*3/uL 0.00-0.00 Mar 20, 2024 11:27 AM [facility] HEMOGLOBIN A1C PANEL Specimen Type: BLOOD [...] Jan 30, 2024 01:20 PM Reporting Lab: [address] [address] Performing Lab: [address] [address] HEMOGLOBIN A1C 6.0 H 4.0-5.6 Mar 20, 2024 11:27 AM [facility] BASIC METABOLIC PANEL (non-fasting) Specimen Type: SERUM No comment entered. Ordering Provider: LORY CARPENTER Report Released Date/Time: Jan 30, 2024 01:20 PM Reporting Lab: [address] [address] Performing Lab: [address] [address] UREA NITROGEN 21 mg/dL 7-25 GLUCOSE 175 mg/dL H 65-100 SODIUM 139 mmol/L 135-145 POTASSIUM 4.0 mmol/L 3.5-5.0 CHLORIDE 104 mmol/L 100-110 CO2 25 meq/L 20-30 CREATININE, Serum 1.11 mg/dL 0.50-1.40 eGFR(CKD-EPI 2020) 67 mL/min >60 Encounter Notes: All associated encounter notes This section contains the clinical notes associated to the Encounter. Date/Time Encounter Note(s) Provider Source Feb 26, 2024 12:05 PM ADMINISTRATIVE NOT E: LOCAL TITLE: CCC: SCHEDULING ADMINISTRATION STANDARD TITLE: ADMINISTRATIVE NOTE DATE OF NOTE: FEB 26, 2024@12:05:19 ENTRY DATE: FEB 26, 2024@12:05:19 AUTHOR: ZOIE SIMMONS EXP COSIGNER: URGENCY: STATUS: COMPLETED CCC: SCHEDULING ADMINISTRATION Has ADDENDA Patient Demographics Patient Name: MUKUL KAY Patient Primary Phone: [phone] Patient Primary Address: [address] [place] [address] Patient : 1940 Patient Age: 83 Call Back Number: [phone] Caller/Recipient Relation to Patient: Self Administrative Administrative Note Reason: Medication Renewal [facility] Medications Refill/Renewal Request: GLIMEPIRIDE 2MG TAB METOPROLOL TARTRATE 50MG TAB Administrative Note Comments: [place] is following up on Glimepiride and discontinuation status and looking to follow up. is also requesting to discuss with [facility] regarding the new [place] walker for foot that is following up with commercial marketing specialist. [place] declines triage at this time. /kasia/ ZOIE SIMMONS Signed: 02/26/2024 12:05 Receipt Acknowledged By: 02/26/2024 15:00 /es/ TODD DANIELS, RN REGISTERED NURSE 02/26/2024 16:15 /es/ LENORA DEJESUS MD PHYSICIAN 03/22/2024 17:16 /es/ Narda Carpenter PharmD Clinical Hat Cleaner 02/26/2024 ADDENDUM STATUS: COMPLETED Spoke with [place] who reports he needs a refill of Metoprolol. [place] also wanted to let [facility] know that the new diabetes medication (sitagliptin) was causing him a lot of joint pain, shoulders, knees, all over . [place] went back to taking glimepiride and pain has been improving. [place] is also not happy with his new [place] walker. He states it is painful and uncomfortable to wear. voiced displeasure with the company/staff that made this for him. He is unable to get it on himself and has difficulty removing it. 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 This brief writer will add a comment to the prosthetics consult to see if this is an option. /kasia/ TODD DANEILS RN REGISTERED NURSE Signed: 02/26/2024 14:51 02/26/2024 ADDENDUM STATUS: COMPLETED Teams alert sent to [facility]. /kasia/ TODD DANIELS RN REGISTERED NURSE Signed: 02/26/2024 15:01 [facility] SIMMONS [facility]
--- OUTSIDE RECORDS SUMMARY | 2024-08-07 12:21 | XMS_ITS ---
Author Name [facility] [place] [facility] [place] [facility] [place] Address [address] [place] [address] Care Team Providers Care Photoengraving Proofer Apprentice Name Role Phone LENORA DEJESUS Primary Care [...] Jul 31, 2014 MEDICAR E SUPPLEM E [id number] [phone] FR GAMALIEL KAY PATIENT [facility] MEDICARE SUPPLEMEN EVANGELISTA MEDIC ARE SUPP Jul 31, 2014 SUPP [id number] [phone] FR GAMALIEL KAY PATIENT MEDICARE (WNR) MEDICARE (M) PART A Jan 29, 2004 PART A [id number] [phone] FR GAMALIEL KAY PATIENT MEDICARE (WNR) MEDICARE (M) PART B Jan 29, 2004 PART B [id number] [phone] FR GAMALIEL KAY PATIENT [facility] (WNR) MEDICARE ADVANTAGE [facility] ([facility]) Jul 31, 2023 [id number] GAMALIEL MACHADO PATIENT [facility] MCR (WNR) MEDICARE ADVANTAGE MCR (WNR) Jul 31, 2023 [id number] [phone] FR GAMALIEL KAY PATIENT Selected Encounter This section includes the information on record at [place] for the Encounter. Date/Time Encounter Type Encounter Description Reason Pro vider Source Feb 05, 2024 12:00 AM Outpatient Encounter EVENT (HISTORICAL) IHE Encounter Template Text not used by [place] Plan of Treatment: Future Appointments (+ 6 months) and Future Tests (+/- 45 days) The Plan of Treatment section includes future care activities for the patient from all [place] treatmentfacilities. This section includes future appointments and future orders which are active, pending or scheduled. Future Appointments This section includes appointments that were scheduled to occur 6 months from the date of the Encounter, up to a maximum of 20 appointments. The data comes from all [place] treatment facilities. Appointment Date/Time Appointment Type Appointme nt Facility Name Mar 27, 2024 01:00 PM [facility] Apr 04, 2024 08:00 AM AMBULATORY - MEDICINE [facility] [place] [facility] May 15[facility] 2024 02:00 PM [facility] Jun 12, 2024 11:00 AM [facility] ([facility] Jun 19, 2024 01:00 PM AMBULATORY - MEDICINE [facility] [facility] Jun 25, 2024 02:30 PM AMBULATORY - MEDICINE [facility] [place] [facility] Jul 30, 2024 03:30 PM [facility] ([facility] Aug 07, 2024 01:00 PM AMBULATORY - MEDICINE [facility] [place] [facility] Encounter Notes: All associated encounter notes This section contains the clinical notes associated to the Encounter. Date/Time Encounter Note(s) Provider Source Feb 05, 2024 12:00 AM NONVA NOTE: LOCAL TITLE: NON-VA OUTPATIENT NOTES STANDARD TITLE: NONVA NOTE DATE OF NOTE: FEB 05, 2024 ENTRY DATE: FEB 22, 2024@14:28:01 AUTHOR: MIK LOPZE COSIGNER: URGENCY: STATUS: COMPLETED VistA Imaging - Scanned Document SCANNED DOCUMENT SIGNATURE NOT REQUIRED Electronically Filed: 02/22/2024 by: MIK PISANO [facility]
--- OUTSIDE RECORDS SUMMARY | 2024-08-07 12:21 | XMS_ITS | Encounter Summary ---
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 Name Role Phone LENORA ROJO Primary [...] Jul 31, 2014 MEDICAR E SUPPLEM E [id number] FR GAMALIEL KAY PATIENT [facility] MEDICARE SUPPLEMEN EVANGELISTA MEDIC ARE SUPP Jul 31, 2014 SUPP [id number] [phone] FR GAMALIEL KAY PATIENT MEDICARE (WNR) MEDICARE (M) PART A Jan 29, 2004 PART A [id number] [phone] FR GAMALIEL KAY PATIENT MEDICARE (WNR) MEDICARE (M) PART B Jan 29, 2004 PART B [id number] [phone] FR GAMALIEL KAY PATIENT [facility] (WNR) MEDICARE ADVANTAGE [facility] ([facility]) Jul 31, 2023 [id number] [phone] FR GAMALIEL KAY PATIENT [facility] (WNR) MEDICARE ADVANTAGE [facility] (WNR) Jul 31, 2023 [id number] [phone] FR GAMALIEL KAY PATIENT Selected Encounter This section includes the information on record at [place] for the Encounter. Date/Time Encounter Type Encounter Description Reason Pro vider Source Feb 20, 2024 10:35 AM Outpatient Encounter PRIMARY CARE/MEDICINE [facility] Encounter [...] 27, 2024 01:00 PM AMBULATORY - MEDICINE [facility] ([facility]) Apr 04, 2024 08:00 AM AM[place]ULATORY [place]ICINE [place] [facility] [place] [facility] May 15, 2024 02:00 PM AMBULATORY - MEDICINE [facility] ([facility]) Jun 12, 2024 11:00 AM AMBULATORY - MEDICINE [facility] ([facility]) Jun 19, 2024 01:00 PM AMBULATORY - [place]ICINE [place] [facility] [place] [facility] Jun 25, 2024 02:30 PM AMBULATORY - MEDICINE [place] [place] [facility] Jul 30, 2024 03:30 PM [facility] Aug 07, 2024 01:00 PM AMBULATORY - MEDICINE [place] [facility] [place] [facility] Aug 14, 2024 10:00 AM AMBULATORY - NONE [place] [facility] [place] [facility] Lab Results: +/- 30 days [...] Ordering Provider: FLYNN ROJO Report Released Date/Time: Mar 11, 2024 11:36 AM Reporting Lab: [address] [address] Performing Lab: [address] [address] MICROALBUMIN/C REATININE RATIO 13.3 mg/g 0-29.9 MICROALBUMIN,Q UANTITATIVE 2.0 mg/dL RR UNAVAIL CREATININE URINE 150.03 mg/dL Mar 20, 2024 11:40 AM [place] ([facility]) URINALYSIS Specimen Type: URINE Comment: If Glucose = >500 and Ketones are positive, please alert the Physician. Ordering Provider: FLYNN ROJO Report Released Date/Time: Mar 11, 2024 11:36 AM Reporting Lab: [address] [address] Performing Lab: [address] [address] UA COLOR Yellow Yellow UA APPEARANCE Clear Clear UA GLUCOSE Normal mg/dL Negative UA KETONES NEGATIVE mg/dL Negative UA BLOOD NEGATIVE mg/dL Negative UA PROTEIN 10 mg/dL Negative UA NITRITE NEGATIVE mg/dL Negative UA BILIRUBIN NEGATIVE mg/dL Negative UA SPECIFIC GRAVITY 1.023 H 1.016-1.02 2 UA pH 6.0 5.0-9.0 UA UROBILINOGEN Normal mg/dL <2.0 UA LEUKOCYTE SMALL Negative Mar 20, 2024 11:40 AM [place] ([facility]) MICROSCOPIC AUTOMATED, URINE Specimen Type: URINE Comment: If Glucose = >500 and Ketones are positive, please alert the Physician. Ordering Provider: FLYNN ROJO Report Released Date/Time: Mar 11, 2024 11:36 AM Reporting Lab: [address] [address] Performing Lab: [address] [address] UA WBC 6-10 /[HPF] H 0-5 UA MUCUS FEW /[LPF] Trace UA RBC 0-2 /[HPF] 0-3 UA SQUAMOUS EPITH FEW /[HPF] Mar 20, 2024 11:28 AM [place] ([facility]) VITAMIN B12 Specimen Type: SERUM No comment entered. Ordering Provider: FLYNN ROJO Report Released Date/Time: Mar 11, 2024 11:36 AM Reporting [facility]: [facility] [address] [address] Performing Lab: [facility] [address] [address] VITAMIN B12 386 pg/mL 200-900 Mar 20, 2024 11:28 AM [place] ([facility]) VITAMIN D (25-OH) Specimen Type: SERUM No comment entered. Ordering Provider: FLYNN ROJO Report Released Date/Time: Mar 11, 2024 11:36 AM Reporting Lab: [address] [address] Performing Lab: [address] [address] VITAMIN D (25-OH) 29 ng/mL 20-50 Mar 20, 2024 11:28 AM [place] ([facility]) TSH Specimen Type: SERUM No comment entered. Ordering Provider: FLYNN ROJO Report Released Date/Time: Mar 11, 2024 11:36 AM Reporting Lab: [address] [address] Performing Lab: [facility] [address] [address] TSH 1.56 u[IU]/mL 0.35-5.00 Mar 20, 2024 11:28 AM [place] ([facility]) LIVER FUNCTION Specimen Type: SERUM No comment entered. Ordering Provider: FLYNN ROJO Report Released Date/Time: Mar 11, 2024 11:36 AM Reporting Lab: [facility] [address] [address] Performing Lab: [address] [address] PROTEIN,TOTAL 6.9 g/dL 6.0-8.3 ALBUMIN 3.5 g/dL 3.5-5.0 ALKALINE PHOSPHATASE 79 U/L 40-150 AST 14 U/L 5-34 ALT <6 U/L BILIRUBIN, TOTAL 0.5 mg/dL 0.2-1.2 Mar 20, 2024 11:28 AM [place] ([facility]) LIPID PANEL, NON FASTING Specimen Type: SERUM No comment entered. Ordering Provider: FLYNN ROJO Report Released Date/Time: Mar 11, 2024 11:36 AM Reporting Lab: [address] [address] Performing Lab: [address] [address] CHOLESTEROL 162 mg/dL TRIGLYCERIDE 115 mg/dL 0-150 LDL calculated 99 mg/dL 0-129 CHOL/HDL 4.1 HDL CHOLESTEROL 40 mg/dL 40-60 Mar 20, 2024 11:28 AM [place] ([facility]) CBC AND DIFF (AUTO) Specimen Type: BLOOD No comment entered. Ordering Provider: FLYNN ROJO Report Released Date/Time: Mar 11, 2024 11:36 AM Reporting Lab: [address] [address] Performing Lab: [address] [address] WBC 6.97 10*3/uL 4.50-11.00 RBC 5.38 10*6/uL [...] 10*3/uL 0.00-0.00 Mar 20, 2024 11:27 AM [facility] HEMOGLOBIN A1C PANEL Specimen Type: BLOOD Comment: [...] Jan 30, 2024 01:20 PM Reporting Lab: [address] [address] Performing Lab: [address] [address] HEMOGLOBIN A1C 6.0 H 4.0-5.6 Mar 20, 2024 11:27 AM [facility] BASIC METABOLIC PANEL (non-fasting) Specimen Type: SERUM No comment entered. Ordering Provider: LORY CARPENTER Report Released Date/Time: Jan 30, 2024 01:20 PM Reporting Lab: [address] [address] Performing Lab: [address] [address] UREA NITROGEN 21 mg/dL 7-25 GLUCOSE 175 mg/dL H 65-100 SODIUM 139 mmol/L 135-145 POTASSIUM 4.0 mmol/L 3.5-5.0 CHLORIDE 104 mmol/L 100-110 CO2 25 meq/L 20-30 CREATININE, Serum 1.11 mg/dL 0.50-1.40 eGFR(CKD-EPI 2020) 67 mL/min >60 Encounter Notes: All associated encounter notes This section contains the clinical notes associated to the Encounter. Date/Time Encounter Note(s) Provider Source Feb 20, 2024 10:39 AM NONVA NOTE: LOCAL TITLE: NON-VA HOSPITALIZATIONS/ER STANDARD TITLE: NONVA NOTE DATE OF NOTE: FEB 20, 2024@10:39 ENTRY DATE: FEB 20, 2024@10:39:56 AUTHOR: TODD DANIELS EXP COSIGNER: URGENCY: STATUS: COMPLETED This note is entered for the sole purpose of scanning Non-VA documentation into [employer]. [facility] Date of Admission: 02/14/2024 Date of Discharge: 02/15/2024 Author: Vick Alvarenga MD Discharge Diagnosis Atrial fibrillation (I48.91) Gross hematuria (R31.0) Chronic atrial fibrillation (I48.20) Type 2 diabetes mellitus (E11.9) Parkinson's disease (G20.A1) Pressure ulcer of left foot (L89.899) Diabetic foot infection (E11.628) Diabetic neuropathy (E11.40) Hypertension (I10) Presence of permanent cardiac pacemaker (Z95.0) Hematuria (R31.9) Urethral stone (N21.1) Anticoagulation adequate with anticoagulant therapy (Z79.01) Discharge Medications Carbidopa-Levodopa (carbidopa-levodopa 25 mg-100 mg oral tablet) 2 tab(s) By Mouth 3 times a day Doxycycline (doxycycline hyclate 100 mg oral capsule) 1 capsule 100 Milligram By Mouth 2 times a day for 10 Days Furosemide (Lasix 20 mg oral tablet) 20 Milligram 1 tablet By Mouth Daily in the afternoon Glimepiride (glimepiride 1 mg oral tablet) 1 tab(s) 1 Milligram By Mouth Daily Metoprolol (metoprolol 50 mg oral tablet) 50 Milligram 1 tablet By Mouth 2 times a day Miscellaneous Rx (Misc Rx) Vitamin D/ Vitamin C/ Magnesium 1 tab Oral Daily Assessment and Plan Assessment: This very pleasant 83-year-old gentleman who is functionally dependent and community dwelling with a background history of chronic atrial fibrillation anticoagulated with Eliquis, Parkinson's disease on Sinemet, type 2 diabetes mellitus, and status post permanent pacemaker and prior left second toe amputation, presented to the emergency department on 02/13 complaining of an episode of urinary urgency followed by gross hematuria. On arrival to the emergency department he was afebrile with stable vital signs. Urinalysis showed red cells with only a few white cells. No imaging was immediately performed. 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 The patient did not notice any changes in the appearance of the ulcer over the last several weeks. He has never had gross hematuria before. He has no prior history of urinary stones and had no back or flank pain. He did not have fevers chills or sweats. Gross hematuria (R31.0) * Grouped with Urethral stone (N21.1), Anticoagulation adequate with anticoagulant therapy (Z79.01), Hematuria (R31.9) * CT scan of the abdomen pelvis with IV contrast showed normal kidneys, no hydronephrosis, but a 4 mm stone that appeared to be within the prostatic urethra. He has had no further hematuria since arriving in the hospital. Renal function is stable, and there are no signs of sepsis. Plan: Vigorous fluid intake Hold Eliquis for the next 7 days Discharge home Return to emergency department for worsening or recurrent hematuria. Chronic atrial fibrillation (I48.20) * Grouped with Hypertension (I10), Presence of permanent cardiac pacemaker (Z95.0) * Atrial fibrillation is rate controlled. Patient appears euvolemic. As noted above, Eliquis will be held for the next 7 days in the context of stone related hematuria Type 2 diabetes mellitus (E11.9): Reasonable control on hospital diet Continue outpatient management at discharge Parkinson's disease (G20.A1): Continue Sinemet patient passed physical therapy evaluation In the hospital setting. Pressure ulcer of left foot (L89.899) * Grouped with Diabetic foot infection (E11.628), Diabetic neuropathy (E11.40) * Patient has what appears to be a neuropathic pressure ulcer left medial first MTP. Sedimentation rate and C-reactive protein are not concerning, and plain x- rays show no evidence of osteomyelitis. He was recently started on doxycycline by his autism motor specialist which he may continue. Discharge Planning: Home with home nursing services. Patient Instructions You are hospitalized to evaluate bloody urine that appears to be related to a kidney stone which you are about to pass. The stone does not appear to be causing any obstruction or significant pain and it is likely to pass without consequence. To minimize the chances of having ongoing problems with bloody urine, please do not take your Eliquis for the next week, until 02/21. You may resume taking Eliquis the usual dose on 02/21. If you have increasing bleeding from the penis, or chills or sweats or high fever, return promptly to the emergency department. Please arrange to see your primary care provider for follow-up appointment within the next week or so to ensure that the stone is passed and that there were no additional consequences. As we discussed, you may fill your prescription for doxycycline issued by your autism motor specialist. Please follow-up with your wound care clinic as previously arranged. Image XR Foot Min 3 Views Left 02/14/2024 22:35 by Dimple Issa FINDINGS: There is no fracture or dislocation. No erosive changes. Stable chronic deformity of the metatarsal and MTP joints compatible with neuropathic foot. Chronic absence of second toe. The Lisfranc joint space is normally aligned. No retained foreign body. Hindfoot midfoot alignment is normal. IMPRESSION: No evidence for fracture or dislocation. Neuropathic foot. No x-ray evidence for active osteomyelitis. CT Abd/Pelvis W/ IV Contrast Only 02/15/2024 10:53 by Manisha Crocker IMPRESSION: At the level of the prostatic urethra is a 4 mm calcification which could represent a passing calculus. Nonobstructing left renal calculus also present. No suspicious renal mass. Evaluation of the collecting system is limited by lack of delayed phase/opacification. No hydroureteronephrosis. Discharge Labs BLOOD COUNT & DIFF WBC 7.0 k/mm3 () 02/15/2024 06:27 RBC 4.66 m/mm3 (Low) 02/15/2024 06:27 Hgb 13.7 Gm/dL () 02/15/2024 06:27 Hct 42.1 % () 02/15/2024 06:27 MCV 90.3 femtoliters () 02/15/2024 06:27 MCH 29.4 pg () 02/15/2024 06:27 MCHC 32.5 g/dL (Low) 02/15/2024 06:27 Platelet Count 196 k/mm3 () 02/15/2024 06:27 RDW-SD 46.4 femtoliters () 02/15/2024 06:27 MPV 10.3 femtoliters () 02/15/2024 06:27 Nucleated RBC (Automated) 0.0 #/100 WBC'S () 02/15/2024 06:27 Abs. NRBC 0.0 k/mm3 () 02/15/2024 06:27 Abs. Neut 4.4 k/mm3 () 02/15/2024 06:27 Abs. Lymph 1.5 k/mm3 () 02/15/2024 06:27 Abs. Hanson 1.0 k/mm3 () 02/15/2024 06:27 Abs. Eo 0.1 k/mm3 () 02/15/2024 06:27 Abs. Baso 0.0 k/mm3 () 02/15/2024 06:27 Neut % 62.3 % () 02/15/2024 06:27 Lymph % 20.9 % () 02/15/2024 06:27 Hanson % 14.5 % (High) 02/15/2024 06:27 Eos % 1.3 % () 02/15/2024 06:27 Baso % 0.6 % () 02/15/2024 06:27 Imm Gran 0.4 % () 02/15/2024 06:27 Abs. Imm Gran 0.0 k/mm3 () 02/15/2024 06:27 CHEM GENERAL Sodium 140 mmol/L () 02/15/2024 06:27 Potassium 3.7 mmol/L () 02/15/2024 06:27 Chloride 106 mmol/L () 02/15/2024 06:27 Bicarbonate Level 24 mmol/L () 02/15/2024 06:27 Anion Gap 10 () 02/15/2024 06:27 Glucose Level 126 mg/dL (High) 02/15/2024 06:27 Glucose, POC 127 mg/dL (High) 02/15/2024 11:50 BUN 15 mg/dL () 02/15/2024 06:27 Creatinine-Blood 0.92 mg/dL () 02/15/2024 06:27 Estimated GFR Creatinine 78 ML/MIN/1.73 M2 () 02/15/2024 06:27 Calcium 9.3 mg/dL () 02/15/2024 06:27 Phosphorus 3.1 mg/dL () 02/15/2024 06:27 Magnesium 2.2 mg/dL () 02/15/2024 06:27 Lactate 1.7 mmol/L () 02/14/2024 22:01 C-Reactive Protein 5.3 mg/dL (High) 02/14/2024 22:01 HEME OTHER Sed Rate 21 mm/hr (High) 02/14/2024 22:01 UA/URINALYSIS Appear/Color, Urine YELLOW () 02/14/2024 21:06 Clarity SL.CLOUDY (Abnormal) 02/14/2024 21:06 Specific [place], Urine 1.015 () 02/14/2024 21:06 pH, Urine 7.0 () 02/14/2024 21:06 Albumin, Urine NEGATIVE (N) 02/14/2024 21:06 Glucose, Urine NEGATIVE (N) 02/14/2024 21:06 Ketones, Urine NEGATIVE (N) 02/14/2024 21:06 Bilirubin, Urine NEGATIVE (N) 02/14/2024 21:06 Hemoglobin, Urine 3+ (Abnormal) 02/14/2024 21:06 Nitrite, Urine NEGATIVE (N) 02/14/2024 21:06 Leukocyte, Urine TRACE (Abnormal) 02/14/2024 21:06 Urobilinogen NORMAL mg/dL (N) 02/14/2024 21:06 WBC's, Urine 25 /HPF (High) 02/14/2024 21:06 RBC's, Urine >182 /HPF (High) 02/14/2024 21:06 Squamous Epith <1 /HPF () 02/14/2024 21:06 URINE OTHER Est Creatinine Clearance 58.73 mL/min () 02/14/2024 22:31 /es/ TODD DANIELS, [facility] REGISTERED NURSE Signed: 02/20/2024 10:46 Receipt Acknowledged By: 02/20/2024 12:46 /kasia/ LENORA ROJO MD PHYSICIAN TODD DANIELS ([facility]) Feb 20, 2024 10:35 AM NONVA NOTE: LOCAL TITLE: NON-VA MEDICAL RECORD SUMMARY STANDARD TITLE: NONVA NOTE DATE OF NOTE: FEB 20, 2024@10:35 ENTRY DATE: FEB 20, 2024@10:35:51 AUTHOR: TODD DANIELS EXP COSIGNER: URGENCY: STATUS: COMPLETED COPIED & PASTED FROM [facility] NURSE NOTE [facility] Nurse Date of Encounter: 02/12/2024 Author: Abigail Mares RN February 12, 2024 Dear Lenora Rojo MD, I have seen a mutual patient, Erich Kay ( 44) at his home for a wellness visit and dressing change and blood sugar check. Jose's left foot wound bed had beefy red granulation tissue surrounded by a large calloused bienvenido-wound area. The wound itself appears to be increasing in and the callous is large in thickness and ( quarter-sized). There was a significant amount of redness in the upper bienvenido-wound area- which Jose attributes to the constant pressure on that prominence when his shoes are on. The redness seems to have slightly increased in intensity of color and area since last week. Jose's inner left foot was quite painful to touch and while walking. The redness was not warm. Moderate a.mount of serosanguinous drainage noted with dressing change (this has also increased since last week). I have instructed Jose to keep an eye on this area d/t his past infections. His wound was washed with Dakin's and a DSD was applied. Jose will go to the wound clinic this Monday and will get new wound care orders which will be adhered to. VS: 98.2 temporal, HR 90s-100s, RR 20, BP 120/81, 02 95% RA. Blood sugar POC 153 this AM - Jose had a few sips of water mixed with juice prior to his POC. I will see Jose again next MondayFebruary 18. /kasia/ TODD DANIELS RN REGISTERED NURSE Signed: 02/20/2024 10:38 Receipt Acknowledged By: 02/20/2024 12:47 /kasia/ LENORA ROJO MD PHYSICIAN TODD DANIELS ([facility])
--- OUTSIDE RECORDS SUMMARY | 2024-08-07 12:21 | XMS_ITS | Encounter Summary ---
Author Name [facility] [place] Organization [place] Address [address] [place] [address] Care Team Providers Care Pharmacy Billing Adjudicator Name Role Phone LENORA DEJESUS Primary Care [...] Jul 31, 2014 MEDICAR E SUPPLEM E [id number] [phone] FR GAMALIEL KAY PATIENT [facility] MEDICARE SUPPLEMEN EVANGELISTA MEDIC ARE SUPP Jul 31, 2014 SUPP [id number] [phone] FR GAMALIEL KAY PATIENT MEDICARE (WNR) MEDICARE (M) PART A Jan 29, 2004 PART A [id number] [phone] FR GAMALIEL KAY PATIENT MEDICARE (WNR) MEDICARE (M) PART B Jan 29, 2004 PART B [id number] [phone] FR GAMALIEL KAY PATIENT [facility] (WNR) MEDICARE ADVANTAGE [facility] ([facility]) Jul 31, 2023 [id number] [phone] FR GAMALIEL KAY PATIENT [facility] MCR (WNR) MEDICARE ADVANTAGE MCR (WNR) Jul 31, 2023 [id number] [phone] FR GAMALIEL KAY PATIENT Selected Encounter This section includes the information on record at [place] for the Encounter. Date/Time Encounter Type Encounter Description Reason Pro vider Source Mar 21, 2024 03:16 PM Outpatient Encounter TELEPHONE TRIAGE IHE Encounter Template Text not used by [place] Plan of Treatment: Future Appointments (+ 6 months) and Future Tests (+/- 45 days) The Plan of Treatment section includes future care activities for the patient from all [place] treatmentfacilities. This section includes future appointments and future orders which are active, pending or scheduled. Future Appointments This section includes appointments that were scheduled to occur 6 months from the date of the Encounter, up to a maximum of 20 appointments. The data comes from all [place] treatment facilities. Appointment Date/Time Appointment Type Appointme nt Facility Name Mar 27, 2024 01:00 PM [facility] Apr 04, 2024 08:00 AM AMBULATORY - MEDICINE [place] [facility] [place] [facility] May 15, 2024 02:00 PM [facility] Jun 12, 2024 11:00 AM [facility] Jun 19, 2024 01:00 PM AMBULATORY - MEDICINE [place] [facility] [place] [facility] Jun 25, 2024 02:30 PM AMBULATORY - MEDICINE [place] [facility] [place] [facility] Jul 30, 2024 03:30 PM [facility] Aug 07, 2024 01:00 PM AMBULATORY - MEDICINE [place] [facility] [place] [facility] Aug 14, 2024 10:00 AM AMBULATORY - NONE [place] [facility] [place] [facility] Sep 02, 2024 03:30 PM AMBULATORY - MEDICINE [place] [facility] [place] [facility] Sep 18, 2024 11:00 AM [facility] Lab Results: +/- 30 days of the encounter This section includes the Chemistry and Hematology Lab Results on record with [place] for the patient. Radiology Reports and Pathology Reports are provided separately, in subsequent sections. Lab Results This section contains the Chemistry/Hematology Results that were resulted 30 days before or 30 daysafter the date of the Encounter. Date/Time Source Result Type Result - Unit Interpretation Reference Range Comment Mar 20, 2024 11:40 AM [facility] ([facility] MICROALBUMIN CREATININE RATIO PANEL Specimen Type: URINE No comment entered. Ordering Provider: FLYNN DEJESUS Report Released Date/Time: Mar 11, 2024 11:36 AM Reporting Lab: [address] [address] Performing Lab: [address] [address] MICROALBUMIN/C REATININE RATIO 13.3 mg/g 0-29.9 MICROALBUMIN,Q UANTITATIVE 2.0 mg/dL RR UNAVAIL CREATININE URINE 150.03 mg/dL Mar 20, 2024 11:40 AM [facility] ([facility]) URINALYSIS Specimen Type: URINE Comment: If Glucose = >500 and Ketones are positive, please alert the Physician. Ordering Provider: FLYNN DEJESUS Report Released Date/Time: Mar 11, 2024 11:36 AM Reporting Lab: [address] [address] Performing Lab: [address] [address] UA COLOR Yellow Yellow UA APPEARANCE Clear Clear UA GLUCOSE Normal mg/dL Negative UA KETONES NEGATIVE mg/dL Negative UA BLOOD NEGATIVE mg/dL Negative UA PROTEIN 10 mg/dL Negative UA NITRITE NEGATIVE mg/dL Negative UA BILIRUBIN NEGATIVE mg/dL Negative UA SPECIFIC GRAVITY 1.023 H 1.016-1.02 2 UA pH 6.0 5.0-9.0 UA UROBILINOGEN Normal mg/dL <2.0 UA LEUKOCYTE SMALL Negative Mar 20, 2024 11:40 AM [facility] ([facility]) MICROSCOPIC AUTOMATED, URINE Specimen Type: URINE Comment: If Glucose = >500 and Ketones are positive, please alert the Physician. Ordering Provider: FLYNN DEJESUS Report Released Date/Time: Mar 11, 2024 11:36 AM Reporting Lab: [address] [address] Performing Lab: [address] [address] UA WBC 6-10 /[HPF] H 0-5 UA MUCUS FEW /[LPF] Trace UA RBC 0-2 /[HPF] 0-3 UA SQUAMOUS EPITH FEW /[HPF] Mar 20, 2024 11:28 AM [facility] ([facility]) VITAMIN B12 Specimen Type: SERUM No comment entered. Ordering Provider: FLYNN DEJESUS Report Released Date/Time: Mar 11, 2024 11:36 AM Reporting Lab: [address] [address] Performing Lab: [address] [address] VITAMIN B12 386 pg/mL 200-900 Mar 20, 2024 11:28 AM [facility] ([facility]) VITAMIN D (25-OH) Specimen Type: SERUM No comment entered. Ordering Provider: FLYNN DEJESUS Report Released Date/Time: Mar 11, 2024 11:36 AM Reporting Lab: [address] [address] Performing Lab: [address] [address] VITAMIN D (25-OH) 29 ng/mL 20-50 Mar 20, 2024 11:28 AM [facility] ([facility]) TSH Specimen Type: SERUM No comment entered. Ordering Provider: FLYNN DEJESUS Report Released Date/Time: Mar 11, 2024 11:36 AM Reporting Lab: [address] [address] Performing Lab: [address] [address] TSH 1.56 u[IU]/mL 0.35-5.00 Mar 20, 2024 11:28 AM [facility] ([facility]) LIPID PANEL, NON FASTING Specimen Type: SERUM No comment entered. Ordering Provider: FLYNN DEJESUS Report Released Date/Time: Mar 11, 2024 11:36 AM Reporting Lab: [address] [address] Performing Lab: [address] [address] CHOLESTEROL 162 mg/dL TRIGLYCERIDE 115 mg/dL 0-150 LDL calculated 99 mg/dL 0-129 CHOL/HDL 4.1 HDL CHOLESTEROL 40 mg/dL 40-60 Mar 20, 2024 11:28 AM [facility] ([facility]) LIVER FUNCTION Specimen Type: SERUM No comment entered. Ordering Provider: FLYNN DEJESUS Report Released Date/Time: Mar 11, 2024 11:36 AM Reporting Lab: [address] [address] Performing Lab: [address] [address] PROTEIN,TOTAL 6.9 g/dL 6.0-8.3 ALBUMIN 3.5 g/dL 3.5-5.0 ALKALINE PHOSPHATASE 79 U/L 40-150 AST 14 U/L 5-34 ALT <6 U/L BILIRUBIN, TOTAL 0.5 mg/dL 0.2-1.2 Mar 20, 2024 11:28 AM [facility] ([facility]) CBC AND DIFF (AUTO) Specimen Type: BLOOD No comment entered. Ordering Provider: FLYNN DEJESUS Report Released Date/Time: Mar 11, 2024 11:36 AM Reporting Lab: [address] [address] Performing Lab: [address] [address] WBC 6.97 10*3/uL 4.50-11.00 RBC 5.38 10*6/uL [...] 10*3/uL 0.00-0.00 Mar 20, 2024 11:27 AM [facility] HEMOGLOBIN A1C PANEL Specimen Type: BLOOD [...] Jan 30, 2024 01:20 PM Reporting Lab: [address] [address] Performing Lab: [address] [address] HEMOGLOBIN A1C 6.0 H 4.0-5.6 Mar 20, 2024 11:27 AM [facility] BASIC METABOLIC PANEL (non-fasting) Specimen Type: SERUM No comment entered. Ordering Provider: LORY CARPENTER Report Released Date/Time: Jan 30, 2024 01:20 PM Reporting Lab: [facility] [address] [facility] [address] Performing Lab: [address] [address] UREA NITROGEN 21 mg/dL 7-25 GLUCOSE 175 mg/dL H 65-100 SODIUM 139 mmol/L 135-145 POTASSIUM 4.0 mmol/L 3.5-5.0 CHLORIDE 104 mmol/L 100-110 CO2 25 meq/L 20-30 CREATININE, Serum 1.11 mg/dL 0.50-1.40 eGFR(CKD-EPI 2020) 67 mL/min >60 Encounter Notes: All associated encounter notes This section contains the clinical notes associated to the Encounter. Date/Time Encounter Note(s) Provider Source Mar 21, 2024 03:16 PM RN PROGRESS NOTE: LOCAL TITLE: CCC: CLINICAL TRIAGE STANDARD TITLE: RN PROGRESS NOTE DATE OF NOTE: MAR 21, 2024@15:16:36 ENTRY DATE: MAR 21, 2024@15:16:37 AUTHOR: TRELL CROUCHIGNER: URGENCY: STATUS: COMPLETED CCC: CLINICAL TRIAGE Has ADDENDA Patient Demographics Patient Name: MUKUL KAY Patient Primary Address: [address] [address] Patient Primary Phone: [phone] Patient : 1940 Patient Age: 83 Current Location: home Call Back Number: verified Caller/Recipient Relation to Patient: Self Emergency Contact: MARILYN KAY Triage Summary Conducted triage/discussed symptoms Utilized the Triage Tool: Yes Chief Complaint: Diarrhea System WHEN: Within 3 Days Nurse's Recommendation / WHEN: Within 3 Days System WHERE: Clinic Nurse's Recommendation / WHERE: Clinic/[facility] Patient Disposition Patient/Caregiver agrees to plan of care: No Patient WHERE: Refused Patient WHEN: Other Other - Patient When Disposition: wants call back from clinic or pharmacist to discuss diabetes medication Nursing Plan and Disposition Referred Patient for In-Person Appt Transferred patient to Sched & Admin-Apt Other Description: declined appt, says he has one with PCP next week on Monday did not want sooner appt Other course(s) of action Generated msg to PACT/Provider Alternative course of action Alternative courses of action: PACT or clinical pharmacist to call back Nurse Summary Nurse Summary: calling to state that he used to take glimepiride but his clinical pharmacist changed it to Alogliptin however states that he began to have joint pain so he stopped taking it and went back to glimepiride (and he states that his joint pain went away. However, Leandro is having intermittent diarrhea off and on, few days ago had a bad case but today just has had 2-3 loose stool not diarrhea which is more frequent for him. Leandro says he was told that he no longer needed to have routine colonoscopies done about 15 years ago but says that he used to have precancerous polyps removed in the past so he his somewhat concerned. 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 BP has been 120/70 but did not notice pulse but has afib and it is irregular. Leandro cannot check his bs reading due to having bad hand tremors, says the [facility] nurse took it Monday and it was 163 mg/dl but normally is 140-150 mg/dl. PACT team: Leanrdo is asking for a Glimepiride renewal to be ordered and sent chad as he did not tolerate the Alogliptin. Says he will wait until his appt next Monday to speak to PCP about more frequent stooling, did not want earlier appt. Clinical Contact Center Codes Clinic/Location: V1 CWM PHONE CCC RN Decision Support System Output: Triage Complete Triage Date: 03/21/2024, 03:05 PM Triage Note: Decision Support Tool Used: TXCC Phone Triage Kerline, 21 Mar 2024 19:00:09 +0000 [facility] Demographics 83 y/o Male Results CC: Diarrhea Software suggested: Within 3 Days Software suggested follow-up location: Clinic, consider [facility] care Values and Measures Duration of CC: 2 Weeks Positive Responses HPI: diarrhea, repeated episodes PMH: diabetes VS: BP not taken VS: pulse not taken VS: temperature not taken Negative Responses Denies: HPI: abdominal pain Denies: HPI: diarrhea, duration longer than 4 days Denies: HPI: diarrhea, more than 8 episodes within past 12 hours Denies: HPI: hematochezia Denies: HPI: lightheadedness, orthostatic Denies: HPI: maroon stool Denies: HPI: melena Denies: HPI: oliguria Denies: HPI: stool mucus, green or yellow Denies: HPI: vomiting Denies: HPI: weakness, unable to stand or get out of bed Denies: MEDS: antibiotic Denies: MEDS: chemotherapy Denies: MEDS: insulin Denies: PMH: Crohn's disease Denies: PMH: HIV positive Denies: PMH: ulcerative colitis Denies: PSH: organ transplant IMPORTANT: This note was created by [facility] Clinical Contact Center staff. Please do not alert the staff member by adding them as a signer for future communications. Alerts are not monitored by this user. /kasia/ TRELL BABCOCK [facility] RN Signed: 03/21/2024 15:16 Receipt Acknowledged By: 03/21/2024 15:31 /kasia/ TODD DANIELS RN REGISTERED NURSE 03/21/2024 16:10 /es/ CHRISTOPHER COLLINS LPN LICENSED PRACTICAL NURSE 03/21/2024 ADDENDUM STATUS: COMPLETED Medication refill request entered with addendum from last CPP note from this credit underwriter relaying [place]'s request & information about joint pain. /kasia/ TODD DANIELS RN REGISTERED NURSE Signed: 03/21/2024 15:31 TRELL CROUCH [facility]
--- OUTSIDE RECORDS SUMMARY | 2024-08-07 12:21 | XMS_ITS ---
Author Name Department of [place] Organization [place] Address [address] [place] [address] Care Team Providers Care Drag Out Man Name Role Phone LENORA DEJESUS Primary [...] Jul 31, 2014 MEDICAR E SUPPLEM E [id number] [phone] FR GAMALIEL KAY PATIENT [facility] MEDICARE SUPPLEMEN EVANGELISTA MEDIC ARE SUPP Jul 31, 2014 SUPP [id number] [phone] FR GAMALIEL KAY PATIENT MEDICARE (WNR) MEDICARE (M) PART A Jan 29, 2004 PART A [id number] [phone] FR GAMALIEL KAY PATIENT MEDICARE (WNR) MEDICARE (M) PART B Jan 29, 2004 PART B [id number] [phone] FR GAMALIEL KAY PATIENT [facility] (WNR) MEDICARE ADVANTAGE [facility] ([facility]) Jul 31, 2023 [id number] [phone] [id number] GAMALIEL MACHADO PATIENT [facility] MCR (WNR) MEDICARE ADVANTAGE MCR (WNR) Jul 31, 2023 [id number] [phone] FR GAMALIEL KAY PATIENT Selected Encounter This section includes the information on record at [place] for the Encounter. Date/Time Encounter Type Encounter Description Reason Pro vider Source Feb 10, 2024 12:00 AM Outpatient Encounter EVENT (HISTORICAL) [...] 01:00 PM AMBUL[facility]ORY - [facility] ([facility]) Apr 04, 2024 08:00 AM AMBULATORY - MEDICINE [facility] [place] [facility] May 15, 2024 02:00 PM AMBULATORY - MEDICINE [facility] ([facility]) Jun 12, 2024 11:00 AM AMBULATORY - MEDICINE [facility] ([facility]) Jun 19, 2024 01:00 PM AMBULATORY - MEDICINE [facility] [place] [facility] Jun 25, 2024 02:30 PM AMBULATORY - MEDICINE [facility] [place] [facility] Jul 30, 2024 03:30 PM AMBULATORY - MEDICINE [facility] ([facility]) Aug 07, 2024 01:00 PM AMBULATORY - MEDICINE [facility] [place] [facility] Encounter Notes: All associated encounter notes This section contains the clinical notes associated to the Encounter. Date/Time Encounter Note(s) Provider Source Feb 10, 2024 12:00 AM NONVA NOTE: LOCAL TITLE: NON-VA [facility] STANDARD TITLE: NONVA NOTE DATE OF NOTE: FEB 10, 2024 ENTRY DATE: MAR 27, 2024@08:53:53 AUTHOR: MAYANK MCCORMACK COSIGNER: URGENCY: STATUS: COMPLETED VistA Imaging - Scanned Document SCANNED DOCUMENT SIGNATURE NOT REQUIRED Electronically Filed: 03/27/2024 by: DONTE MCCORMACK Wave Soldering Machine Operator DONTE MCCORMACK [facility] Feb 10, 2024 12:00 AM NONVA NOTE: LOCAL TITLE: NON-VA [facility] STANDARD TITLE: NONVA NOTE DATE OF NOTE: FEB 10, 2024 ENTRY DATE: MAY 02, 2024@15:22:57 AUTHOR: MAYANK MCCORMACK COSIGNER: URGENCY: STATUS: COMPLETED VistA Imaging - Scanned Document SCANNED DOCUMENT SIGNATURE NOT REQUIRED Electronically Filed: 05/02/2024 by: DONTE MCCORMACK Wave Soldering Machine Operator DONTE MCCORMACK [facility]
--- OUTSIDE RECORDS SUMMARY | 2024-08-07 12:21 | XMS_ITS ---
Author Name [place] Address [address] [place] [address] Care Team Providers Care Laboratory Technology Teacher Name Role Phone LENORA DEJESUS Primary Care [...] Jul 31, 2014 MEDICAR E SUPPLEM E [id number] [phone] FR GAMALIEL KAY PATIENT [facility] MEDICARE SUPPLEMEN EVANGELISTA MEDIC ARE SUPP Jul 31, 2014 SUPP [id number] [phone] FR GAMALIEL KAY PATIENT MEDICARE (WNR) MEDICARE (M) PART A Jan 29, 2004 PART A [id number] [phone] FR GAMALIEL KAY PATIENT MEDICARE (WNR) MEDICARE (M) PART B Jan 29, 2004 PART B [id number] [phone] FR GAMALIEL KAY PATIENT [facility] (WNR) MEDICARE ADVANTAGE [facility] ([facility]) Jul 31, 2023 [id number] [phone] FR GAMALIEL KAY PATIENT [facility] MCR (WNR) MEDICARE ADVANTAGE MCR (WNR) Jul 31, 2023 [id number] [phone] FR GAMALIEL KAY PATIENT Selected Encounter This section includes the information on record at [place] for the Encounter. Date/Time Encounter Type Encounter Description Reason Pro vider Source Feb 12, 2024 12:00 AM Outpatient Encounter EVENT (HISTORICAL) [...] 2024 01:00 PM [facility] Apr 04, 2024 08:00 AM AM[place]UL[place]IC[place] [facility] May 15, 2024 02:00 PM [facility] Jun 12, 2024 11:00 AM [facility] Jun 19, 2024 01:00 PM AMBULATORY - [place]ICINE [place] [facility] Jun 25, 2024 02:30 PM AMBULATORY [place]ICINE [place] [facility] Jul 30, 2024 03:30 PM [facility] Aug 07, 2024 01:00 PM AMBULATORY - [place]ICINE [place] [facility] Aug 14, 2024 10:00 AM AMBULATORY - NONE [place] [facility] Encounter Notes: All associated encounter notes This section contains the clinical notes associated to the Encounter. Date/Time Encounter Note(s) Provider Source Feb 12, 2024 12:00 AM NONVA NOTE: LOCAL TITLE: NON-VA OUTPATIENT NOTES STANDARD TITLE: NONVA NOTE DATE OF NOTE: FEB 12, 2024 ENTRY DATE: MAR 04, 2024@10:21:13 AUTHOR: MIK LOPEZ EXP COSIGNER: URGENCY: STATUS: COMPLETED VistA Imaging - Scanned Document SCANNED DOCUMENT SIGNATURE NOT REQUIRED Electronically Filed: 03/04/2024 by: MIK PISANO [facility]
--- OUTSIDE RECORDS SUMMARY | 2024-08-07 12:21 | XMS_ITS ---
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 Operator Name Role Phone LENORA ROJO Primary [...] Jul 31, 2014 MEDICAR E SUPPLEM E [id number] [phone] FR GAMALIEL KAY PATIENT [facility] MEDICARE SUPPLEMEN EVANGELISTA MEDIC ARE SUPP Jul 31, 2014 SUPP [id number] FR GAMALIEL KAY PATIENT MEDICARE (WNR) MEDICARE (M) PART A Jan 29, 2004 PART A [id number] [phone] FR GAMALIEL KAY PATIENT MEDICARE (WNR) MEDICARE (M) PART B Jan 29, 2004 PART B [id number] [phone] FR GAMALIEL KAY PATIENT [facility] (WNR) MEDICARE ADVANTAGE [facility]) Jul 31, 2023 [id number] [phone] FR GAMALIEL KAY PATIENT [facility] (WNR) MEDICARE ADVANTAGE [facility] (WNR) Jul 31, 2023 [id number] [phone] FR GAMALIEL KAY PATIENT Selected Encounter This section includes the information on record at [place] for the Encounter. Date/Time Encounter Type Encounter Description Reason Pro vider Source Mar 12, 2024 08:42 AM Outpatient Encounter PRIMARY CARE/MEDICINE IHE Encounter Template Text not used by [place] Plan of Treatment: Future Appointments (+ 6 [...] 27, 2024 01:00 PM [facility]) Apr 04, 2024 08:00 AM [place] [facility] May 15, 2024 02:00 PM [facility] ([facility]) Jun 12, 2024 11:00 AM AMBULATORY - MEDICINE [facility] ([facility]) Jun 19, 2024 01:00 PM AM[place]UL[place]ORY [place] [facility] Jun 25, 2024 02:30 PM AM[place]UL[place]ORY [place] [facility] Jul 30, 2024 03:30 PM [facility]) Aug 07, 2024 01:00 PM AM[place]UL[place]ORY [place] [facility] Aug 14, 2024 10:00 AM AMBULATORY - NONE [place] [facility] Sep 02, 2024 03:30 PM AM[place]ULATORY [place] [facility] Lab Results: +/- 30 days of the encounter This section includes the Chemistry and Hematology Lab Results on record with [place] for the patient. Radiology Reports and Pathology Reports are provided separately, in subsequent sections. Lab Results This section contains the Chemistry/Hematology Results that were resulted 30 days before or 30 daysafter the date of the Encounter. Date/Time Source Result Type Result - Unit Interpretation Reference Range Comment Mar 20, 2024 11:40 AM [facility] ([facility]) URINALYSIS Specimen Type: URINE Comment: If Glucose = >500 and Ketones are positive, please alert the Physician. Ordering Provider: FLYNN ROJO Report Released Date/Time: Mar 11, 2024 11:36 AM Reporting Lab: [address] [address] Performing Lab: [address] [address] UA COLOR Yellow Yellow UA APPEARANCE Clear Clear UA GLUCOSE Normal mg/dL Negative UA KETONES NEGATIVE mg/dL Negative UA BLOOD NEGATIVE mg/dL Negative UA PROTEIN 10 mg/dL Negative UA NITRITE NEGATIVE mg/dL Negative UA BILIRUBIN NEGATIVE mg/dL Negative UA SPECIFIC GRAVITY 1.023 H 1.016-1.02 2 UA pH 6.0 5.0-9.0 UA UROBILINOGEN Normal mg/dL <2.0 UA LEUKOCYTE SMALL Negative Mar 20, 2024 11:40 AM [facility] ([facility]) MICROALBUMIN CREATININE RATIO PANEL Specimen Type: URINE No comment entered. Ordering Provider: FLYNN ROJO Report Released Date/Time: Mar 11, 2024 11:36 AM Reporting Lab: [address] [address] Performing Lab: [address] [address] MICROALBUMIN/C REATININE RATIO 13.3 mg/g 0-29.9 MICROALBUMIN,Q UANTITATIVE 2.0 mg/dL RR UNAVAIL CREATININE URINE 150.03 mg/dL Mar 20, 2024 11:40 AM [facility] ([facility]) MICROSCOPIC AUTOMATED, URINE Specimen Type: URINE Comment: If Glucose = >500 and Ketones are positive, please alert the Physician. Ordering Provider: FLYNN ROJO Report Released Date/Time: Mar 11, 2024 11:36 AM Reporting Lab: [address] [address] Performing Lab: [address] [address] UA WBC 6-10 /[HPF] H 0-5 UA MUCUS FEW /[LPF] Trace UA RBC 0-2 /[HPF] 0-3 UA SQUAMOUS EPITH FEW /[HPF] Mar 20, 2024 11:28 AM [facility] ([facility]) VITAMIN B12 Specimen Type: SERUM No comment entered. Ordering Provider: FLYNN ROJO Report Released Date/Time: Mar 11, 2024 11:36 AM Reporting [facility]: [facility] [address] [address] Performing Lab: [facility] [address] [address] VITAMIN B12 386 pg/mL 200-900 Mar 20, 2024 11:28 AM [facility] ([facility]) TSH Specimen Type: SERUM No comment entered. Ordering Provider: FLYNN ROJO Report Released Date/Time: Mar 11, 2024 11:36 AM Reporting Lab: [address] [address] Performing Lab: [facility] [address] [address] TSH 1.56 u[IU]/mL 0.35-5.00 Mar 20, 2024 11:28 AM [facility] ([facility]) VITAMIN D (25-OH) Specimen Type: SERUM No comment entered. Ordering Provider: FLYNN ROJO Report Released Date/Time: Mar 11, 2024 11:36 AM Reporting Lab: [address] [address] Performing Lab: [facility] [address] [address] VITAMIN D (25-OH) 29 ng/mL 20-50 Mar 20, 2024 11:28 AM [facility] ([facility]) CBC AND DIFF (AUTO) Specimen Type: BLOOD No comment entered. Ordering Provider: FLYNN ROJO Report Released Date/Time: Mar 11, 2024 11:36 AM Reporting Lab: [address] [address] Performing Lab: [address] [place] [address] WBC 6.97 10*3/uL 4.50-11.00 RBC 5.38 10*6/uL [...] ABS 0.00 10*3/uL 0.00-0.00 Mar 20, 2024 11:28 AM [facility] ([facility]) LIVER FUNCTION Specimen Type: SERUM No comment entered. Ordering Provider: FLYNN ROJO Report Released Date/Time: Mar 11, 2024 11:36 AM Reporting Lab: [address] [address] Performing Lab: [address] [address] PROTEIN,TOTAL 6.9 g/dL 6.0-8.3 ALBUMIN 3.5 g/dL 3.5-5.0 ALKALINE PHOSPHATASE 79 U/L 40-150 AST 14 U/L 5-34 ALT <6 U/L BILIRUBIN, TOTAL 0.5 mg/dL 0.2-1.2 Mar 20, 2024 11:28 AM [facility] ([facility]) LIPID PANEL, NON FASTING Specimen Type: SERUM No comment entered. Ordering Provider: FLYNN ROJO Report Released Date/Time: Mar 11, 2024 11:36 AM Reporting Lab: [facility] [address] [facility] [address] Performing Lab: [facility] [address] [facility] [address] CHOLESTEROL 162 mg/dL TRIGLYCERIDE 115 mg/dL 0-150 LDL calculated 99 mg/dL 0-129 CHOL/HDL 4.1 HDL CHOLESTEROL 40 mg/dL 40-60 Mar 20, 2024 11:27 AM [facility] HEMOGLOBIN A1C PANEL Specimen Type: BLOOD [...] Jan 30, 2024 01:20 PM Reporting Lab: [facility] [address] [facility] [address] Performing Lab: [address] [address] HEMOGLOBIN A1C 6.0 H 4.0-5.6 Mar 20, 2024 11:27 AM [facility] BASIC METABOLIC PANEL (non-fasting) Specimen Type: SERUM No comment entered. Ordering Provider: LORY CARPENTER Report Released Date/Time: Jan 30, 2024 01:20 PM Reporting Lab: [facility] [address] [facility] [address] Performing Lab: [address] [address] UREA NITROGEN 21 mg/dL 7-25 GLUCOSE 175 mg/dL H 65-100 SODIUM 139 mmol/L 135-145 POTASSIUM 4.0 mmol/L 3.5-5.0 CHLORIDE 104 mmol/L 100-110 CO2 25 meq/L 20-30 CREATININE, Serum 1.11 mg/dL 0.50-1.40 eGFR(CKD-EPI 2020) 67 mL/min >60 Encounter Notes: All associated encounter notes This section contains the clinical notes associated to the Encounter. Date/Time Encounter Note(s) Provider Source Mar 12, 2024 08:42 AM NONVA NOTE: LOCAL TITLE: NON-VA MEDICAL RECORD SUMMARY STANDARD TITLE: NONVA NOTE DATE OF NOTE: MAR 12, 2024@08:42 ENTRY DATE: MAR 12, 2024@08:42:15 AUTHOR: TODD DANIELS COSIGNER: URGENCY: STATUS: COMPLETED COPIED & PASTED FROM [facility] NURSE NOTE [facility] Nurse Date of Encounter: 03/11/24 Author: Abigail Mares Dear Lenora Rojo MD, I have seen a mutual patient, Erich Kay ( 44) at his home for a wellness visit and dressing change. Not much has changed in the way of Jose's wounds - his left foot wound is neither progressing nor deteriorating. His left lopez wound has had some improvement in the depth over the past week. Jose's left food wound bed had beefy red granulation tissue surrounded by a large calloused bienvenido-wound area. The wound itself is about quarter sized and there does not appear to be any evidence of infection. Moderate amount of serosanguinous drainage noted with dressing change. Per the Wound Clinic - the dressing is to be changed every 2-3 days and consists of Hydrofera Blue dressing in the wound bed followed by DSD. Jose also has a wound in his superior, lateral left lopez area which was from a scissor poke during a previous dressing change. The wound is dime sized, has a granulated tissue bed without bienvenido-wound redness and small amount of serosanguinous drainage. Jose states this wound continues to be quite painful. This wound received a DSD also with the Hydrofera Blue. Jose will continue to be followed by the wound clinic weekly. FASTING blood glucose POC: 146 VS: 97.8 temporal, HR 100s, RR 16, BP 110/75, O2 96% RA. I will see Jose again next MondayMarch 18. Thank you kindly /kasia/ TODD DANIELS, RN REGISTERED NURSE Signed: 03/12/2024 08:48 Receipt Acknowledged By: 03/12/2024 14:04 /kasia/ ALEXA WALKER NP NURSE PRACTITIONER for LENORA DANIELS,TOD[facility] BRITO ([facility])
--- OUTSIDE RECORDS SUMMARY | 2024-08-07 12:21 | XMS_ITS ---
Author Name [facility] [place] Address [address] [place] [address] Care Team Providers Care Hard Metals Hand Engraver Name Role Phone LENORA DEJESUS Primary Care [...] Jul 31, 2014 MEDICAR E SUPPLEM E [id number] [phone] FR GAMALIEL KAY PATIENT [facility] MEDICARE SUPPLEMEN EVANGELISTA MEDIC ARE SUPP Jul 31, 2014 SUPP [id number] [phone] FR GAMALIEL KAY PATIENT MEDICARE (WNR) MEDICARE (M) PART A Jan 29, 2004 PART A [id number] [phone] FR GAMALIEL KAY PATIENT MEDICARE (WNR) MEDICARE (M) PART B Jan 29, 2004 PART B [id number] [phone] FR GAMALIEL KAY PATIENT [facility] (WNR) MEDICARE ADVANTAGE [facility] ([facility]) Jul 31, 2023 [id number] RAHUL, GAMALIEL PATIENT [facility] MCR (WNR) MEDICARE ADVANTAGE MCR (WNR) Jul 31, 2023 [id number] [phone] FR GAMALIEL KAY PATIENT Selected Encounter This section includes the information on record at [place] for the Encounter. Date/Time Encounter Type Encounter Description Reason Pro vider Source Feb 16, 2024 01:17 PM Outpatient Encounter TELEPHONE CASE MANAGEMENT IHE [...] 27, 2024 01:00 PM [facility] Apr 04, 2024 08:00 AM AMBULATORY - MEDICINE [place] [facility] May 15, 2024 02:00 PM [facility] Jun 12, 2024 11:00 AM [facility] Jun 19, 2024 01:00 PM AMBULATORY - MEDICINE [place] [facility] Jun 25, 2024 02:30 PM AMBULATORY - MEDICINE [place] [facility] Jul 30, 2024 03:30 PM [facility] Aug 07, 2024 01:00 PM AMBULATORY - MEDICINE [place] [facility] Aug 14, 2024 10:00 AM AMBULATORY - NONE [place] [facility] Encounter Notes: All associated encounter notes This section contains the clinical notes associated to the Encounter. Date/Time Encounter Note(s) Provider Source Feb 16, 2024 01:17 PM TRANSFER SUMMARIZA TION NOTE: LOCAL TITLE: DIRECTOR CHEMISTRY/OCC/HOSPITAL NOTIFICATION NOTE STANDARD TITLE: TRANSFER SUMMARIZATION NOTE DATE OF NOTE: FEB 16, 2024@13:17 ENTRY DATE: FEB 16, 2024@13:17:37 AUTHOR: HARINDER HOU EXP COSIGNER: URGENCY: STATUS: COMPLETED hospitalized at [facility] on 02/13 for gross hematuria, dc home with services. /kasia/ HARINDER HOU MSN,RN,CNL Bowl Sander Signed: 02/16/2024 13:18 HARINDER HOU [facility]
--- OUTSIDE RECORDS SUMMARY | 2024-08-07 12:21 | XMS_ITS ---
Author Name [facility] [place] Address [address] [place] [address] Care Team Providers Care Property Valuer Name Role Phone LENORA DEJESUS Primary Care [...] Jul 31, 2014 MEDICAR E SUPPLEM E [id number] [phone] FR GAMALIEL KAY PATIENT [facility] MEDICARE SUPPLEMEN EVANGELISTA MEDIC ARE SUPP Jul 31, 2014 SUPP [id number] [phone] FR GAMALIEL KAY PATIENT MEDICARE (WNR) MEDICARE (M) PART A Jan 29, 2004 PART A [id number] [phone] FR GAMALIEL KAY PATIENT MEDICARE (WNR) MEDICARE (M) PART B Jan 29, 2004 PART B [id number] [phone] FR GAMALIEL KAY PATIENT [facility] (WNR) MEDICARE ADVANTAGE [facility] ([facility] Jul 31, 2023 [id number] [phone] [id number] GAMALIEL MACHADO PATIENT [facility] MCR (WNR) MEDICARE ADVANTAGE MCR (WNR) Jul 31, 2023 [id number] [phone] FR GAMALIEL KAY PATIENT Selected Encounter This section includes the information on record at [place] for the Encounter. Date/Time Encounter Type Encounter Description Reason Pro vider Source Feb 06, 2024 12:00 AM Outpatient Encounter EVENT (HISTORICAL) [...] 27, 2024 01:00 PM [facility] ([facility]) Apr 04, 2024 08:00 AM AMBULATORY - MEDICINE [facility] [place] [facility] May 15, 2024 02:00 PM [facility] ([facility]) Jun 12, 2024 11:00 AM AMBUL[facility] ([facility]) Jun 19, 2024 01:00 PM AMBULATORY - MEDICINE [facility] [place] [facility] Jun 25, 2024 02:30 PM AMBULATORY - MEDICINE [facility] [place] [facility] Jul 30, 2024 03:30 PM AMBUL[facility]INE [facility] ([facility]) Aug 07, 2024 01:00 PM AMBULATORY - MEDICINE [facility] [place] [facility] Encounter Notes: All associated encounter notes This section contains the clinical notes associated to the Encounter. Date/Time Encounter Note(s) Provider Source Feb 06, 2024 12:00 AM NONVA NOTE: LOCAL TITLE: NON-[facility] STANDARD TITLE: NONVA NOTE DATE OF NOTE: FEB 06, 2024 ENTRY DATE: MAR 06, 2024@08:15:18 AUTHOR: MAYANK MCCORMACK COSIGNER: URGENCY: STATUS: COMPLETED VistA Imaging - Scanned Document SCANNED DOCUMENT SIGNATURE NOT REQUIRED Electronically Filed: 03/06/2024 by: DONTE MCCROMACK General Sales Manager DONTE MCCORMACKL LINDSEY PENA
--- OUTSIDE RECORDS SUMMARY | 2024-08-07 12:21 | XMS_ITS | Encounter Summary ---
Author Name [facility] [place] Organization [facility] [place] Address [address] [place] [address] Care Team Providers Care Deputy Administrator Name Role Phone LENORA DEJESUS Primary Care [...] Jul 31, 2014 MEDICAR E SUPPLEM E [id number] [phone] FR GAMALIEL KAY PATIENT [facility] MEDICARE SUPPLEMEN EVANGELISTA MEDIC ARE SUPP Jul 31, 2014 SUPP [id number] [phone] FR GAMALIEL KAY PATIENT MEDICARE (WNR) MEDICARE (M) PART A Jan 29, 2004 PART A [id number] [phone] FR GAMALIEL KAY PATIENT MEDICARE (WNR) MEDICARE (M) PART B Jan 29, 2004 PART B [id number] [phone] FR GAMALIEL KAY PATIENT [facility] (WNR) MEDICARE ADVANTAGE [facility] ([facility] Jul 31, 2023 [id number] [phone] FR GAMALIEL KAY PATIENT [facility] MCR (WNR) MEDICARE ADVANTAGE MCR (WNR) Jul 31, 2023 [id number] [phone] FR GAMALIEL KAY PATIENT Selected Encounter This section includes the information on record at [place] for the Encounter. Date/Time Encounter Type Encounter Description Reason Pro vider Source Mar 21, 2024 03:27 PM Outpatient Encounter PRIMARY CARE/MEDICINE IHE Encounter Template Text not used by [place] Plan of Treatment: Future Appointments (+ 6 months) and Future Tests (+/- 45 days) The Plan of Treatment section includes future care activities for the patient from all [place] treatmentfacilities. This section includes future appointments and future orders which are active, pending or scheduled. Future Appointments This section includes appointments that were scheduled to occur 6 months from the date of the Encounter, up to a maximum of 20 appointments. The data comes from all [place] treatment facilities. Appointment Date/Time Appointment Type Appointme nt Facility Name Mar 27, 2024 01:00 PM [facility] Apr 04, 2024 08:00 AM AM[place] [facility] [place] [facility] May 15, 2024 02:00 PM [facility] Jun 12, 2024 11:00 AM [facility] Jun 19, 2024 01:00 PM AM[place]ULATORY [place]ICINE [place] [facility] [facility] Jun 25, 2024 02:30 PM AMBULATORY [place]ICINE [place] [facility] Jul 30, 2024 03:30 PM [facility] Aug 07, 2024 01:00 PM AMBULATORY - [place]ICINE [place] [facility] [facility] Aug 14, 2024 10:00 AM AMBULATORY - NONE [place] [facility] [facility] Sep 02, 2024 03:30 PM AMBULATORY - [place]ICINE [place] [facility] Sep 18, 2024 11:00 AM [facility] ([facility]) Lab Results: +/- 30 days of the encounter This section includes the Chemistry and Hematology Lab Results on record with [place] for the patient. Radiology Reports and Pathology Reports are provided separately, in subsequent sections. Lab Results This section contains the Chemistry/Hematology Results that were resulted 30 days before or 30 daysafter the date of the Encounter. Date/Time Source Result Type Result - Unit Interpretation Reference Range Comment Mar 20, 2024 11:40 AM [facility] ([facility]) MICROALBUMIN CREATININE RATIO PANEL Specimen Type: URINE No comment entered. Ordering Provider: FLYNN DEJESUS Report Released Date/Time: Mar 11, 2024 11:36 AM Reporting Lab: [address] [address] Performing Lab: [address] [address] MICROALBUMIN/C REATININE RATIO 13.3 mg/g 0-29.9 MICROALBUMIN,Q UANTITATIVE 2.0 mg/dL RR UNAVAIL CREATININE URINE 150.03 mg/dL Mar 20, 2024 11:40 AM [facility] ([facility]) URINALYSIS Specimen Type: URINE Comment: If Glucose = >500 and Ketones are positive, please alert the Physician. Ordering Provider: FLYNN DEJESUS Report Released Date/Time: Mar 11, 2024 11:36 AM Reporting Lab: [address] [address] Performing Lab: [address] [address] UA COLOR Yellow Yellow UA APPEARANCE Clear Clear UA GLUCOSE Normal mg/dL Negative UA KETONES NEGATIVE mg/dL Negative UA BLOOD NEGATIVE mg/dL Negative UA PROTEIN 10 mg/dL Negative UA NITRITE NEGATIVE mg/dL Negative UA BILIRUBIN NEGATIVE mg/dL Negative UA SPECIFIC GRAVITY 1.023 H 1.016-1.02 2 UA pH 6.0 5.0-9.0 UA UROBILINOGEN Normal mg/dL <2.0 UA LEUKOCYTE SMALL Negative Mar 20, 2024 11:40 AM [facility] ([facility]) MICROSCOPIC AUTOMATED, URINE Specimen Type: URINE Comment: If Glucose = >500 and Ketones are positive, please alert the Physician. Ordering Provider: FLYNN DEJESUS Report Released Date/Time: Mar 11, 2024 11:36 AM Reporting Lab: [address] [address] Performing Lab: [facility] [address] [facility] [address] UA WBC 6-10 /[HPF] H 0-5 UA MUCUS FEW /[LPF] Trace UA RBC 0-2 /[HPF] 0-3 UA SQUAMOUS EPITH FEW /[HPF] Mar 20, 2024 11:28 AM [facility] ([facility]) VITAMIN B12 Specimen Type: SERUM No comment entered. Ordering Provider: FLYNN DEJESUS Report Released Date/Time: Mar 11, 2024 11:36 AM Reporting Lab: [address] [address] Performing Lab: [address] [address] VITAMIN B12 386 pg/mL 200-900 Mar 20, 2024 11:28 AM [facility] ([facility]) TSH Specimen Type: SERUM No comment entered. Ordering Provider: FLYNN DEJESUS Report Released Date/Time: Mar 11, 2024 11:36 AM Reporting Lab: [address] [address] Performing Lab: [address] [address] TSH 1.56 u[IU]/mL 0.35-5.00 Mar 20, 2024 11:28 AM [facility] ([facility]) VITAMIN D (25-OH) Specimen Type: SERUM No comment entered. Ordering Provider: FLYNN DEJESUS Report Released Date/Time: Mar 11, 2024 11:36 AM Reporting Lab: [address] [address] Performing Lab: [address] [address] VITAMIN D (25-OH) 29 ng/mL 20-50 Mar 20, 2024 11:28 AM [facility] ([facility]) CBC AND DIFF (AUTO) Specimen Type: BLOOD No comment entered. Ordering Provider: FLYNN DEJESUS Report Released Date/Time: Mar 11, 2024 11:36 AM Reporting Lab: [address] [address] Performing Lab: [facility] [address] [facility] [address] WBC 6.97 10*3/uL 4.50-11.00 RBC 5.38 10*6/uL [...] 10*3/uL 0.00-0.00 Mar 20, 2024 11:28 AM [facility] ([facility]) LIPID PANEL, NON FASTING Specimen Type: SERUM No comment entered. Ordering Provider: FLYNN DEJESUS Report Released Date/Time: Mar 11, 2024 11:36 AM Reporting Lab: [facility] [address] [facility] [address] Performing Lab: [address] [address] CHOLESTEROL 162 mg/dL TRIGLYCERIDE 115 mg/dL 0-150 LDL calculated 99 mg/dL 0-129 CHOL/HDL 4.1 HDL CHOLESTEROL 40 mg/dL 40-60 Mar 20, 2024 11:28 AM [facility] ([facility]) LIVER FUNCTION Specimen Type: SERUM No comment entered. Ordering Provider: FLYNN DEJESUS Report Released Date/Time: Mar 11, 2024 11:36 AM Reporting Lab: [facility] [address] [facility] [address] Performing Lab: [address] [address] PROTEIN,TOTAL 6.9 g/dL 6.0-8.3 ALBUMIN 3.5 g/dL 3.5-5.0 ALKALINE PHOSPHATASE 79 U/L 40-150 AST 14 U/L 5-34 ALT <6 U/L BILIRUBIN, TOTAL 0.5 mg/dL 0.2-1.2 Mar 20, 2024 11:27 AM [facility] HEMOGLOBIN A1C PANEL Specimen Type: BLOOD [...] Jan 30, 2024 01:20 PM Reporting Lab: [address] [address] Performing Lab: [address] [address] HEMOGLOBIN A1C 6.0 H 4.0-5.6 Mar 20, 2024 11:27 AM [facility] BASIC METABOLIC PANEL (non-fasting) Specimen Type: SERUM No comment entered. Ordering Provider: LORY CARPENTER Report Released Date/Time: Jan 30, 2024 01:20 PM Reporting Lab: [facility] [address] [facility] [address] Performing Lab: [address] [address] UREA NITROGEN 21 mg/dL 7-25 GLUCOSE 175 mg/dL H 65-100 SODIUM 139 mmol/L 135-145 POTASSIUM 4.0 mmol/L 3.5-5.0 CHLORIDE 104 mmol/L 100-110 CO2 25 meq/L 20-30 CREATININE, Serum 1.11 mg/dL 0.50-1.40 eGFR(CKD-EPI 2020) 67 mL/min >60 Encounter Notes: All associated encounter notes This section contains the clinical notes associated to the Encounter. Date/Time Encounter Note(s) Provider Source Mar 22, 2024 10:07 AM ADDENDUM: LOCAL TITLE: Addendum STANDARD TITLE: ADDENDUM DATE OF NOTE: MAR 22, 2024@10:07:11 ENTRY DATE: MAR 22, 2024@10:07:11 AUTHOR: LENORA DEJESUS EXP COSIGNER: URGENCY: STATUS: COMPLETED FYI regarding medication, can you follow up with him regarding DM meds.Thanks /kasia/ LENORA DEJESUS MD PHYSICIAN Signed: 03/22/2024 10:08 Receipt Acknowledged By: 03/28/2024 10:58 /es/ Rachel Carpenter PharmD Clinical [employer] === --- Original Document --- 03/21/24 OUTPATIENT MEDICATION REQUEST: Medication Request Date of Request: Feb MED RENEWAL with Labs Received request for Medication: [place] Requests: GLIMEPIRIDE TAB 2MG TAKE ONE TABLET BY MOUTH ONCE DAILY Quantity: 90 Refills: 2 Indication: FOR TYPE 2 DIABETES MELLITUS Requests for MAIL. From addendum to last CPP note: 02/26/2024 ADDENDUM STATUS: COMPLETED [place] wanted to let CPP know that the new diabetes medication (sitagliptin) was causing him a lot of joint pain, shoulders, knees, all over . [place] went back to taking glimepiride and pain has been improving. Active Outpatient Medications (including Supplies): Issue Date Status Last Fill Active Outpatient Medications Refills Expiration 1) ACCU-CHEK GUIDE (GLUCOSE) TEST STRIP ACTIVE Issu:01-30-24 Qty: 50 for 180 days Sig: USE 1 STRIP Refills: 1 Last:01-30-24 TO TEST BLOOD SUGARS TWO TIMES A WEEK Expr:01-30-25 2) APIXABAN 5MG TAB Qty: 180 for 90 days ACTIVE Issu:08-18-23 Sig: TAKE ONE TABLET BY MOUTH TWICE Refills: 2 Last:01-26-24 DAILY Expr:08-18-24 3) CARBIDOPA 25/LEVODOPA 100MG TAB Qty: ACTIVE Issu:10-27-23 540 for 90 days Sig: TAKE 1 TABLET BY Refills: 3 Last:10-27-23 MOUTH THREE TIMES A DAY FOR 7 DAYS, Expr:10-27-24 THEN TAKE 2 TABLETS THREE TIMES A DAY FOR PARKINSON'S DISEASE 4) FLUTICASONE PROP 50MCG 120D NASAL INHL ACTIVE Issu:10-10-23 Qty: 3 for 90 days Sig: INSTILL 2 Refills: 3 Last:10-11-23 SPRAYS INTO EACH NOSTRIL ONCE DAILY Expr:10-10-24 5) FUROSEMIDE 20MG TAB Qty: 90 for 90 days ACTIVE Issu:09-19-23 Sig: TAKE ONE TABLET BY MOUTH ONCE Refills: 3 Last:09-19-23 DAILY TO REMOVE FLUID/CONTROL BLOOD Expr:09-19-24 PRESSURE 6) LANCET,SOFTCLIX Qty: 100 for 90 days ACTIVE Issu:01-30-24 Sig: USE 1 LANCET DIRECTED TWO Refills: 1 Last:01-30-24 TIMES A WEEK TO TEST BLOOD SUGAR Expr:01-30-25 7) LIDOCAINE 5% PATCH Qty: 90 for 90 days ACTIVE Issu:10-10-23 Sig: APPLY 1 PATCH TOPICALLY ONCE Refills: 1 Last:10-11-23 DAILY NEEDED FOR NERVE PAIN (LEAVE Expr:10-10-24 PATCH ON FOR 12 HOURS, THEN REMOVE PATCH) 8) METOPROLOL TARTRATE 50MG TAB Qty: 180 ACTIVE Issu:02-26-24 for 90 days Sig: TAKE ONE TABLET BY Refills: 3 Last:02-27-24 MOUTH TWICE DAILY FOR BLOOD Expr:02-26-25 PRESSURE/HEART 9) SITAGLIPTIN (EQV-ZITUVIO) 100MG TAB ACTIVE Issu:01-30-24 Qty: 30 for 30 days Sig: TAKE ONE Refills: 3 Last:01-30-24 TABLET BY MOUTH ONCE DAILY Expr:01-30-25 Medication (Local) Status - ACCU-CHEK GUIDE ME (GLUCOSE) METER Directions: USE METER TO TEST BLOOD SUGARS ONCE DAILY NEEDED Quantity: 1 for 30 days Provider: RACHEL CARPENTER Expires: 02/29/24 Status: Medication (Remote) Status -- No remote medications found. LABS ==== CHEM 7 TREND LAB CUMULATIVE SELECTED Collection DT Spec GLUCOSE BUN CREATIN Sodium K+/Pot CL CO2 03/20/2024 11:27 SERUM 175 H 21 1.11 139 4.0 104 25 09/13/2023 13:18 SERUM 120 H 23 1.15 138 3.9 104 25 05/12/2023 08:42 SERUM 169 H 20 1.19 141 5.0 106 26 11/23/2022 13:38 SERUM 161 H 16 1.08 138 4.3 104 25 04/13/2022 13:19 SERUM 132 H 17 1.06 138 4.3 104 26 LAB CUMULATIVE SELECTED 2 No selection items chosen for this component. CHEM 7 Results Collection DT Spec Sodium K+/Pot CL CO2 GLUCOSE BUN 03/20/2024 11:27 SERUM 139 4.0 104 25 175 H 21 09/13/2023 13:18 SERUM 138 3.9 104 25 120 H 23 05/12/2023 08:42 SERUM 141 5.0 106 26 169 H 20 11/23/2022 13:38 SERUM 138 4.3 104 25 161 H 16 04/13/2022 13:19 SERUM 138 4.3 104 26 132 H 17 10/26/2021 11:03 SERUM 138 4.4 101 26 171 H 18 05/25/2021 10:32 SERUM 142 4.4 103 28 133 H 22 === CBC TREND Collection DT Spec WBC RBC HGB HCT MCV MCH PLT 03/20/2024 11:28 BLOOD 6.97 5.38 15.9 47.9 89.0 29.6 224 09/13/2023 13:18 BLOOD 8.48 5.71 H 16.6 49.8 87.2 29.1 242 05/12/2023 08:42 BLOOD 8.06 5.48 16.2 49.2 89.8 29.6 248 11/23/2022 13:38 BLOOD 9.56 5.50 16.2 48.7 88.5 29.5 238 04/13/2022 13:19 BLOOD 7.46 5.28 15.2 45.4 86.0 28.8 227 === HEMOGLOBIN A1C TREND Collection DT Spec HGBA1c 03/20/2024 11:27 BLOOD 6.0 H 09/13/2023 13:18 BLOOD 6.6 H 05/12/2023 08:42 BLOOD 6.4 H 11/23/2022 13:38 BLOOD 6.6 H 04/13/2022 13:19 BLOOD 6.0 H === LIPID PANEL TREND Collection DT Spec CHOL HDL CHO/HDL LDL-c TRIG 03/20/2024 11:28 SERUM 162 40 4.1 99 115 09/13/2023 13:18 SERUM 181 40 4.5 113 142 05/12/2023 08:42 SERUM 170 43 4.0 108 97 11/23/2022 13:38 SERUM 190 37 L 5.1 128 124 04/13/2022 13:19 SERUM 180 40 4.5 124 79 === UREA NITROGEN 03/20/24 11:27 21 09/13/23 13:18 23 05/12/23 08:42 20 CREATININE-EGFR 03/20/24 11:27 1.11 09/13/23 13:18 1.15 05/12/23 08:42 1.19 === LIVER PANEL TREND Collection DT Spec AST ALT T BILI ALK MARLENY T. PROT ALBUMIN 03/20/2024 11:28 SERUM 14 <6 0.5 79 6.9 3.5 09/13/2023 13:18 SERUM 16 6 0.8 82 7.1 3.8 05/12/2023 08:42 SERUM 16 18 comment 81 7.1 3.8 11/23/2022 13:38 SERUM 16 18 1.0 77 7.0 3.9 04/13/2022 13:19 SERUM 16 <6 0.9 81 6.8 3.7 === PSA TREND No data available === TESTOSTERONE No data available === Collection DT Spec TSH 03/20/2024 11:28 SERUM 1.56 == ANEMIA PANEL TREND Collection DT Spec B12 SR- HCT 03/20/2024 11:28 SERUM 386 03/20/2024 11:28 BLOOD 47.9 09/13/2023 13:18 BLOOD 49.8 09/13/2023 13:18 SERUM 359 05/12/2023 08:42 BLOOD 49.2 === PT INR TREND Collection DT Spec INR PT 10/26/2021 11:03 PLASM 1.5 16.8 H === Upcoming Appointment: 03/27/2024 13:00 CWM/GO/PACT 1 WH 04/08/2024 15:30 CWM/GO/TELE/PHARM/PACT 1 06/25/2024 14:30 NHM/OPTOMETRY/DONALDSON/ 08/07/2024 13:00 COM CARE-NEUROLOGY 10/07/2024 14:30 CWM/GO/DERMATOLGY A CONTACT PHONE NUMBER [CELLULAR] - NONE FOUND PATIENT PHONE - [Landline] /es/ TODD DANIELS RN REGISTERED NURSE Signed: 03/21/2024 15:29 Receipt Acknowledged By: 03/22/2024 10:06 /es/ LENORA DEJESUS MD PHYSICIAN LENORA DEJESUS ([facility]) Mar 21, 2024 03:27 PM MEDICATION MGT NOT E: LOCAL TITLE: OUTPATIENT MEDICATION REQUEST STANDARD TITLE: MEDICATION MGT NOTE DATE OF NOTE: MAR 21, 2024@15:27 ENTRY DATE: MAR 21, 2024@15:27:22 AUTHOR: TODD DANIELS EXP COSIGNER: URGENCY: STATUS: COMPLETED OUTPATIENT MEDICATION REQUEST Has ADDENDA Medication Request Date of Request: Feb MED RENEWAL with Labs Received request for Medication: Requests: GLIMEPIRIDE TAB 2MG TAKE ONE TABLET BY MOUTH ONCE DAILY Quantity: 90 Refills: 2 Indication: FOR TYPE 2 DIABETES MELLITUS Requests for MAIL. From addendum to last CPP note: 02/26/2024 ADDENDUM STATUS: COMPLETED [place] wanted to let CPP know that the new diabetes medication (sitagliptin) was causing him a lot of joint pain, shoulders, knees, all over . [place] went back to taking glimepiride and pain has been improving. Active Outpatient Medications (including Supplies): Issue Date Status Last Fill Active Outpatient Medications Refills Expiration 1) ACCU-CHEK GUIDE (GLUCOSE) TEST STRIP ACTIVE Issu:01-30-24 Qty: 50 for 180 days Sig: USE 1 STRIP Refills: 1 Last:01-30-24 TO TEST BLOOD SUGARS TWO TIMES A WEEK Expr:01-30-25 2) APIXABAN 5MG TAB Qty: 180 for 90 days ACTIVE Issu:08-18-23 Sig: TAKE ONE TABLET BY MOUTH TWICE Refills: 2 Last:01-26-24 DAILY Expr:08-18-24 3) CARBIDOPA 25/LEVODOPA 100MG TAB Qty: ACTIVE Issu:10-27-23 540 for 90 days Sig: TAKE 1 TABLET BY Refills: 3 Last:10-27-23 MOUTH THREE TIMES A DAY FOR 7 DAYS, Expr:10-27-24 THEN TAKE 2 TABLETS THREE TIMES A DAY FOR PARKINSON'S DISEASE 4) FLUTICASONE PROP 50MCG 120D NASAL INHL ACTIVE Issu:10-10-23 Qty: 3 for 90 days Sig: INSTILL 2 Refills: 3 Last:10-11-23 SPRAYS INTO EACH NOSTRIL ONCE DAILY Expr:10-10-24 5) FUROSEMIDE 20MG TAB Qty: 90 for 90 days ACTIVE Issu:09-19-23 Sig: TAKE ONE TABLET BY MOUTH ONCE Refills: 3 Last:09-19-23 DAILY TO REMOVE FLUID/CONTROL BLOOD Expr:09-19-24 PRESSURE 6) LANCET,SOFTCLIX Qty: 100 for 90 days ACTIVE Issu:01-30-24 Sig: USE 1 LANCET DIRECTED TWO Refills: 1 Last:01-30-24 TIMES A WEEK TO TEST BLOOD SUGAR Expr:01-30-25 7) LIDOCAINE 5% PATCH Qty: 90 for 90 days ACTIVE Issu:10-10-23 Sig: APPLY 1 PATCH TOPICALLY ONCE Refills: 1 Last:10-11-23 DAILY NEEDED FOR NERVE PAIN (LEAVE Expr:10-10-24 PATCH ON FOR 12 HOURS, THEN REMOVE PATCH) 8) METOPROLOL TARTRATE 50MG TAB Qty: 180 ACTIVE Issu:02-26-24 for 90 days Sig: TAKE ONE TABLET BY Refills: 3 Last:02-27-24 MOUTH TWICE DAILY FOR BLOOD Expr:02-26-25 PRESSURE/HEART 9) SITAGLIPTIN (EQV-ZITUVIO) 100MG TAB ACTIVE Issu:01-30-24 Qty: 30 for 30 days Sig: TAKE ONE Refills: 3 Last:01-30-24 TABLET BY MOUTH ONCE DAILY Expr:01-30-25 Medication (Local) Status - ACCU-CHEK GUIDE ME (GLUCOSE) METER Directions: USE METER TO TEST BLOOD SUGARS ONCE DAILY NEEDED Quantity: 1 for 30 days Provider: RACHEL CARPENTER Expires: 02/29/24 Status: Medication (Remote) Status -- No remote medications found. LABS ==== CHEM 7 TREND LAB CUMULATIVE SELECTED Collection DT Spec GLUCOSE BUN CREATIN Sodium K+/Pot CL CO2 03/20/2024 11:27 SERUM 175 H 21 1.11 139 4.0 104 25 09/13/2023 13:18 SERUM 120 H 23 1.15 138 3.9 104 25 05/12/2023 08:42 SERUM 169 H 20 1.19 141 5.0 106 26 11/23/2022 13:38 SERUM 161 H 16 1.08 138 4.3 104 25 04/13/2022 13:19 SERUM 132 H 17 1.06 138 4.3 104 26 LAB CUMULATIVE SELECTED 2 No selection items chosen for this component. CHEM 7 Results Collection DT Spec Sodium K+/Pot CL CO2 GLUCOSE BUN 03/20/2024 11:27 SERUM 139 4.0 104 25 175 H 21 09/13/2023 13:18 SERUM 138 3.9 104 25 120 H 23 05/12/2023 08:42 SERUM 141 5.0 106 26 169 H 20 11/23/2022 13:38 SERUM 138 4.3 104 25 161 H 16 04/13/2022 13:19 SERUM 138 4.3 104 26 132 H 17 10/26/2021 11:03 SERUM 138 4.4 101 26 171 H 18 05/25/2021 10:32 SERUM 142 4.4 103 28 133 H 22 === CBC TREND Collection DT Spec WBC RBC HGB HCT MCV MCH PLT 03/20/2024 11:28 BLOOD 6.97 5.38 15.9 47.9 89.0 29.6 224 09/13/2023 13:18 BLOOD 8.48 5.71 H 16.6 49.8 87.2 29.1 242 05/12/2023 08:42 BLOOD 8.06 5.48 16.2 49.2 89.8 29.6 248 11/23/2022 13:38 BLOOD 9.56 5.50 16.2 48.7 88.5 29.5 238 04/13/2022 13:19 BLOOD 7.46 5.28 15.2 45.4 86.0 28.8 227 === HEMOGLOBIN A1C TREND Collection DT Spec HGBA1c 03/20/2024 11:27 BLOOD 6.0 H 09/13/2023 13:18 BLOOD 6.6 H 05/12/2023 08:42 BLOOD 6.4 H 11/23/2022 13:38 BLOOD 6.6 H 04/13/2022 13:19 BLOOD 6.0 H === LIPID PANEL TREND Collection DT Spec CHOL HDL CHO/HDL LDL-c TRIG 03/20/2024 11:28 SERUM 162 40 4.1 99 115 09/13/2023 13:18 SERUM 181 40 4.5 113 142 05/12/2023 08:42 SERUM 170 43 4.0 108 97 11/23/2022 13:38 SERUM 190 37 L 5.1 128 124 04/13/2022 13:19 SERUM 180 40 4.5 124 79 === UREA NITROGEN 03/20/24 11:27 21 09/13/23 13:18 23 05/12/23 08:42 20 CREATININE-EGFR 03/20/24 11:27 1.11 09/13/23 13:18 1.15 05/12/23 08:42 1.19 === LIVER PANEL TREND Collection DT Spec AST ALT T BILI ALK MARLENY T. PROT ALBUMIN 03/20/2024 11:28 SERUM 14 <6 0.5 79 6.9 3.5 09/13/2023 13:18 SERUM 16 6 0.8 82 7.1 3.8 05/12/2023 08:42 SERUM 16 18 comment 81 7.1 3.8 11/23/2022 13:38 SERUM 16 18 1.0 77 7.0 3.9 04/13/2022 13:19 SERUM 16 <6 0.9 81 6.8 3.7 === PSA TREND No data available === TESTOSTERONE No data available === Collection DT Spec TSH 03/20/2024 11:28 SERUM 1.56 == ANEMIA PANEL TREND Collection DT Spec B12 SR- HCT 03/20/2024 11:28 SERUM 386 03/20/2024 11:28 BLOOD 47.9 09/13/2023 13:18 BLOOD 49.8 09/13/2023 13:18 SERUM 359 05/12/2023 08:42 BLOOD 49.2 === PT INR TREND Collection DT Spec INR PT 10/26/2021 11:03 PLASM 1.5 16.8 H === Upcoming Appointment: 03/27/2024 13:00 CWM/GO/PACT 1 WH 04/08/2024 15:30 CWM/GO/TELE/PHARM/PACT 1 06/25/2024 14:30 NHM/OPTOMETRY/[place]/ 08/07/2024 13:00 COM CARE-NEUROLOGY 10/07/2024 14:30 CWM/GO/DERMATOLGY A CONTACT PHONE NUMBER [CELLULAR] - NONE FOUND PATIENT PHONE - [Landline] /kasia/ TODD DANIELS, [place] REGISTERED NURSE Signed: 03/21/2024 15:29 Receipt Acknowledged By: 03/22/2024 10:06 /kasia/ LENORA DEJESUS MD PHYSICIAN 03/22/2024 ADDENDUM STATUS: COMPLETED FYI regarding medication, can you follow up with him regarding DM meds.Thanks /kasia/ LENORA DEJESUS MD PHYSICIAN Signed: 03/22/2024 10:08 Receipt Acknowledged By: * AWAITING SIGNATURE * RACHEL CARPENTER KATIE L [place] ([facility])
--- OUTSIDE RECORDS SUMMARY | 2024-08-07 12:22 | XMS_ITS | Encounter Summary ---
Author Name [facility] [place] Address [address] [place] [address] Care Team Providers Care Foreign Language Stenographer Name Role Phone LENORA DEJESUS Primary Care [...] Jul 31, 2014 MEDICAR E SUPPLEM E [id number] [phone] FR GAMALIEL KAY PATIENT [facility] MEDICARE SUPPLEMEN EVANGELISTA MEDIC ARE SUPP Jul 31, 2014 SUPP [id number] [phone] FR GAMALIEL KAY PATIENT MEDICARE (WNR) MEDICARE (M) PART A Jan 29, 2004 PART A [id number] [phone] FR GAMALIEL KAY PATIENT MEDICARE (WNR) MEDICARE (M) PART B Jan 29, 2004 PART B [id number] [phone] FR GAMALIEL KAY PATIENT [facility] (WNR) MEDICARE ADVANTAGE [facility] (R) Jul 31, 2023 [id number] [phone] FR GAMALIEL KAY PATIENT [facility] MCR (WNR) MEDICARE ADVANTAGE [facility] (WNR) Jul 31, 2023 [id number] [phone] FR GAMALIEL KAY PATIENT Selected Encounter This section includes the information on record at [place] for the Encounter. Date/Time Encounter Type Encounter Description Reason Pro vider Source Apr 09, 2024 09:18 AM Outpatient Encounter COMMUNITY CARE CONSULT IHE [...] Date/Time Appointment Type Appointme nt Facility Name May 15, 2024 02:00 PM AMBULATORY - MEDICINE [facility] ([facility]) Jun 12, 2024 11:00 AM AMBULATORY - MEDICINE [facility] ([facility]) Jun 19, 2024 01:00 PM AMBULATORY - [place]ICINE [place] [facility] [place] [facility] Jun 25, 2024 02:30 PM AMBULATORY - MEDICINE [place] [facility] [place] [facility] Jul 30, 2024 03:30 PM AMBULATORY - MEDICINE [facility] ([facility]) Aug 07, 2024 01:00 PM AMBULATORY - MEDICINE [place] [facility] [place] [facility] Aug 14, 2024 10:00 AM AMBULATORY - NONE [place] [facility] [place] [facility] Sep 02, 2024 03:30 PM AMBULATORY - MEDICINE [place] [facility] [place] [facility] Sep 18, 2024 11:00 AM AMBULATORY - MEDICINE [facility] ([facility]) Oct 07, 2024 02:30 PM AMBULATORY - MEDICINE [place] [facility] [place] [facility] Lab Results: +/- 30 days of [...] Range Comment Mar 20, 2024 11:40 AM [facility] ([facility]) MICROALBUMIN CREATININE RATIO PANEL Specimen Type: URINE No comment entered. Ordering Provider: FLYNN DEJESUS Report Released Date/Time: Mar 11, 2024 11:36 AM Reporting Lab: [address] [address] Performing Lab: [address] [address] MICROALBUMIN/C REATININE RATIO 13.3 mg/g 0-29.9 MICROALBUMIN,Q UANTITATIVE 2.0 mg/dL RR UNAVAIL CREATININE URINE 150.03 mg/dL Mar 20, 2024 11:40 AM [facility] ([facility]) URINALYSIS Specimen Type: URINE Comment: If Glucose = >500 and Ketones are positive, please alert the Physician. Ordering Provider: FLYNN DEJESUS Report Released Date/Time: Mar 11, 2024 11:36 AM Reporting Lab: [address] [address] Performing Lab: [address] [address] UA COLOR Yellow Yellow UA APPEARANCE Clear Clear UA GLUCOSE Normal mg/dL Negative UA KETONES NEGATIVE mg/dL Negative UA BLOOD NEGATIVE mg/dL Negative UA PROTEIN 10 mg/dL Negative UA NITRITE NEGATIVE mg/dL Negative UA BILIRUBIN NEGATIVE mg/dL Negative UA SPECIFIC GRAVITY 1.023 H 1.016-1.02 2 UA pH 6.0 5.0-9.0 UA UROBILINOGEN Normal mg/dL <2.0 UA LEUKOCYTE SMALL Negative Mar 20, 2024 11:40 AM [facility] ([facility]) MICROSCOPIC AUTOMATED, URINE Specimen Type: URINE Comment: If Glucose = >500 and Ketones are positive, please alert the Physician. Ordering Provider: FLYNN DEJESUS Report Released Date/Time: Mar 11, 2024 11:36 AM Reporting Lab: [address] [address] Performing Lab: [address] [address] UA WBC 6-10 /[HPF] H 0-5 UA MUCUS FEW /[LPF] Trace UA RBC 0-2 /[HPF] 0-3 UA SQUAMOUS EPITH FEW /[HPF] Mar 20, 2024 11:28 AM [facility] ([facility]) VITAMIN B12 Specimen Type: SERUM No comment entered. Ordering Provider: FLYNN DEJESUS Report Released Date/Time: Mar 11, 2024 11:36 AM Reporting Lab: [facility] [address] Performing Lab: [facility] [address] [address] VITAMIN B12 386 pg/mL 200-900 Mar 20, 2024 11:28 AM [facility] ([facility]) VITAMIN D (25-[place]) Specimen Type: SERUM No comment entered. Ordering Provider: FLYNN DEJESUS Report Released Date/Time: Mar 11, 2024 11:36 AM Reporting Lab: [facility] [address] [address] Performing Lab: [facility] [address] [address] VITAMIN D (25-OH) 29 ng/mL 20-50 Mar 20, 2024 11:28 AM [facility] ([facility]) TSH Specimen Type: SERUM No comment entered. Ordering Provider: FLYNN DEJESUS Report Released Date/Time: Mar 11, 2024 11:36 AM Reporting Lab: [facility] [address] [address] Performing Lab: [facility]ITALTRN [facility]ENTERUSETS [address] [address] TSH 1.56 u[IU]/mL 0.35-5.00 Mar 20, 2024 11:28 AM [facility] ([facility]) LIVER FUNCTION Specimen Type: SERUM No comment entered. Ordering Provider: FLYNN DEJESUS Report Released Date/Time: Mar 11, 2024 11:36 AM Reporting Lab: [facility] [address] [address] Performing Lab: [facility] [address] [address] PROTEIN,TOTAL 6.9 g/dL 6.0-8.3 ALBUMIN 3.5 g/dL 3.5-5.0 ALKALINE PHOSPHATASE 79 U/L 40-150 AST 14 U/L 5-34 ALT <6 U/L BILIRUBIN, TOTAL 0.5 mg/dL 0.2-1.2 Mar 20, 2024 11:28 AM [facility] ([facility]) LIPID PANEL, NON FASTING Specimen Type: SERUM No comment entered. Ordering Provider: FLYNN DEJESUS Report Released Date/Time: Mar 11, 2024 11:36 AM Reporting Lab: [address] [address] Performing Lab: [place] [address] CHOLESTEROL 162 mg/dL TRIGLYCERIDE 115 mg/dL 0-150 LDL calculated 99 mg/dL 0-129 CHOL/HDL 4.1 HDL CHOLESTEROL 40 mg/dL 40-60 Mar 20, 2024 11:28 AM [facility] ([facility]) CBC AND DIFF (AUTO) Specimen Type: BLOOD No comment entered. Ordering Provider: FLYNN DEJESUS Report Released Date/Time: Mar 11, 2024 11:36 AM Reporting Lab: [address] [address] Performing Lab: [place] [id number] WBC 6.97 10*3/uL 4.50-11.00 RBC 5.38 10*6/uL [...] 10*3/uL 0.00-0.00 Mar 20, 2024 11:27 AM [facility] HEMOGLOBIN A1C PANEL Specimen Type: BLOOD [...] Jan 30, 2024 01:20 PM Reporting Lab: [address] [address] Performing Lab: [address] [address] HEMOGLOBIN A1C 6.0 H 4.0-5.6 Mar 20, 2024 11:27 AM [facility] BASIC METABOLIC PANEL (non-fasting) Specimen Type: SERUM No comment entered. Ordering Provider: LORY CARPENTER Report Released Date/Time: Jan 30, 2024 01:20 PM Reporting Lab: [address] [address] Performing Lab: [address] [address] UREA NITROGEN 21 mg/dL 7-25 GLUCOSE 175 mg/dL H 65-100 SODIUM 139 mmol/L 135-145 POTASSIUM 4.0 mmol/L 3.5-5.0 CHLORIDE 104 mmol/L 100-110 CO2 25 meq/L 20-30 CREATININE, Serum 1.11 mg/dL 0.50-1.40 eGFR(CKD-EPI 2020) 67 mL/min >60 Encounter Notes: All associated encounter notes This section contains the clinical notes associated to the Encounter. Date/Time Encounter Note(s) Provider Source Apr 09, 2024 09:18 AM NONVA NOTE: LOCAL TITLE: [facility] SELF PRESENTING CARE COORD PLAN STANDARD TITLE: NONVA NOTE DATE OF NOTE: APR 09, 2024@09:18 ENTRY DATE: APR 09, 2024@09:18:36 AUTHOR: NNAMDI SADLER EXP COSIGNER: URGENCY: STATUS: COMPLETED Emergency Notification Intake Date Presenting to the Facility: Mar Method of Contact: Notified from [employer] worklist Notification ID: [id number] [facility] Referral #: [facility] Name: Hospital: [facility] Address: City: [place] State: [place] Zip Code: Phone : [facility] Facility Point of Contact: Name: Phone: Chief complaint: INFECTION IN LEFT LEG Primary Diagnosis: Disposition Admitted Route of Admission: ER Date of Admission: Mar Admitting Diagnosis: INFECTION IN LEFT LEG Community Care Provider: Confirm Level of Care: /kasia/ NNAMDI MEJIAS Signed: 04/09/2024 09:19 Receipt Acknowledged By: 04/09/2024 09:54 /es/ TODD DANIELS, RN REGISTERED NURSE 04/09/2024 12:31 /kasia/ LENORA DEJESUS MD PHYSICIAN 04/16/2024 13:00 /es/ Dulce Maria Johnson MSN,RN,[facility] TRANSFER/TRAVELING COORDINATOR 04/15/2024 08:19 /kasia/ BRADFORD MORENO Registered Nurse Civil Engineer'S Aide NNAMDI SADLER [place]
--- OUTSIDE RECORDS SUMMARY | 2024-08-07 12:22 | XMS_ITS | Encounter Summary ---
Author Name [facility] [place] Address [address] [place] [address] Care Team Providers Care Change Number Operator Name Role Phone LENORA DEJESUS Primary [...] Jul 31, 2014 MEDICAR E SUPPLEM E [id number] FR GAMALIEL KAY PATIENT [facility] MEDICARE SUPPLEMEN EVANGELISTA MEDIC ARE SUPP Jul 31, 2014 SUPP [id number] [phone] FR GAMALIEL KAY PATIENT MEDICARE (WNR) MEDICARE ([place]) PART A Jan 29, 2004 PART A [id number] [phone] FR GAMALIEL KAY PATIENT MEDICARE (WNR) MEDICARE ([place]) PART B Jan 29, 2004 PART B [id number] [phone] FR GAMALIEL KAY PATIENT [facility] (WNR) MEDICARE ADVANTAGE [facility] ([facility]) Jul 31, 2023 [id number] [phone] FR GAMALIEL KAY PATIENT [facility] MCR (WNR) MEDICARE ADVANTAGE [facility] (WNR) Jul 31, 2023 [id number] [phone] FR GAMALIEL KAY PATIENT Selected Encounter This section includes the information on record at [place] for the Encounter. Date/Time Encounter Type Encounter Description Reason Provider Source Mar 28, 2024 10:39 AM PRO PHONE CALL 11-20 MIN TELEPHONE CASE MANAGEMENT ICD-10-CM Z71.9 Counseling, unspecified MORA GIFFORD Mitzi Encounter Template Text not used by [place] Assessments - Encounter Diagnoses This section includes the primary and secondary diagnoses documented for the Encounter. Date/Time Primary/Secondary Diagnosis Diagnosis Name Provider Source Mar 28, 2024 10:39 AM PRIMARY Counseling, unspecified MORA GIFFORD ([facility]) Plan of Treatment: Future Appointments (+ 6 months) and Future Tests (+/- 45 days) The Plan of Treatment section includes future care activities for the patient from all [place] treatmentfacilities. This section includes future appointments and future orders which are active, pending or scheduled. Future Appointments This section includes appointments that were scheduled to occur 6 months from the date of the Encounter, up to a maximum of 20 appointments. The data comes from all [place] treatment facilities. Appointment Date/Time Appointment Type Appointme nt Facility Name Apr 04, 2024 08:00 AM AMBULATORY - MEDICINE [place] [facility] [place] [facility] May 15, 2024 02:00 PM [facility] Jun 12, 2024 11:00 AM [facility]) Jun 19, 2024 01:00 PM [facility] [place]IC[place] [facility] [place] [facility] Jun 25, 2024 02:30 PM AMBULATORY - MEDICINE [place] [facility] [place] [facility] Jul 30, 2024 03:30 PM [facility] Aug 07, 2024 01:00 PM AMBULATORY - MEDICINE [place] [place] [facility] Aug 14, 2024 10:00 AM AMBULATORY - NONE [place] [facility] [place] [facility] Sep 02, 2024 03:30 PM AMBULATORY - MEDICINE [place] [facility] [place] [place] [facility] Sep 18, 2024 11:00 AM AMBUL[facility]ORY - MEDICINE [place] ([facility]) Lab Results: +/- 30 days of the encounter This section includes the Chemistry and Hematology Lab Results on record with [place] for the patient. Radiology Reports and Pathology Reports are provided separately, in subsequent sections. Lab Results This section contains the Chemistry/Hematology Results that were resulted 30 days before or 30 daysafter the date of the Encounter. Date/Time Source Result Type Result - Unit Interpretation Reference Range Comment Mar 20, 2024 11:40 AM [facility] ([facility]) MICROALBUMIN CREATININE RATIO PANEL Specimen Type: URINE No comment entered. Ordering Provider: FLYNN DEJESUS Report Released Date/Time: Mar 11, 2024 11:36 AM Reporting Lab: [address] [address] Performing Lab: [address] [address] MICROALBUMIN/C REATININE RATIO 13.3 mg/g 0-29.9 MICROALBUMIN,Q UANTITATIVE 2.0 mg/dL RR UNAVAIL CREATININE URINE 150.03 mg/dL Mar 20, 2024 11:40 AM [facility] ([facility]) URINALYSIS Specimen Type: URINE Comment: If Glucose = >500 and Ketones are positive, please alert the Physician. Ordering Provider: FLYNN DEJESUS Report Released Date/Time: Mar 11, 2024 11:36 AM Reporting Lab: [address] [address] Performing Lab: [address] [address] UA COLOR Yellow Yellow UA APPEARANCE Clear Clear UA GLUCOSE Normal mg/dL Negative UA KETONES NEGATIVE mg/dL Negative UA BLOOD NEGATIVE mg/dL Negative UA PROTEIN 10 mg/dL Negative UA NITRITE NEGATIVE mg/dL Negative UA BILIRUBIN NEGATIVE mg/dL Negative UA SPECIFIC GRAVITY 1.023 H 1.016-1.02 2 UA pH 6.0 5.0-9.0 UA UROBILINOGEN Normal mg/dL <2.0 UA LEUKOCYTE SMALL Negative Mar 20, 2024 11:40 AM [facility] ([facility]) MICROSCOPIC AUTOMATED, URINE Specimen Type: URINE Comment: If Glucose = >500 and Ketones are positive, please alert the Physician. Ordering Provider: FLYNN DEJESUS Report Released Date/Time: Mar 11, 2024 11:36 AM Reporting Lab: [facility] [address] [address] Performing Lab: [facility] [address] [address] UA WBC 6-10 /[HPF] H 0-5 UA MUCUS FEW /[LPF] Trace UA RBC 0-2 /[HPF] 0-3 UA SQUAMOUS EPITH FEW /[HPF] Mar 20, 2024 11:28 AM [facility] ([facility]) VITAMIN B12 Specimen Type: SERUM No comment entered. Ordering Provider: FLYNN DEJESUS Report Released Date/Time: Mar 11, 2024 11:36 AM Reporting Lab: [facility] [address] [address] Performing Lab: [address] [address] VITAMIN B12 386 pg/mL 200-900 Mar 20, 2024 11:28 AM [facility] ([facility]) VITAMIN D (25-OH) Specimen Type: SERUM No comment entered. Ordering Provider: FLYNN DEJESUS Report Released Date/Time: Mar 11, 2024 11:36 AM Reporting Lab: [facility]TRN [address] [address] Performing Lab: [facility] [address] [address] VITAMIN D (25-OH) 29 ng/mL 20-50 Mar 20, 2024 11:28 AM [facility] ([facility]) TSH Specimen Type: SERUM No comment entered. Ordering Provider: FLYNN DEJESUS Report Released Date/Time: Mar 11, 2024 11:36 AM Reporting Lab: [facility]TRN [address] [address] Performing Lab: [facility]MINGHAMN [address] [address] TSH 1.56 u[IU]/mL 0.35-5.00 Mar 20, 2024 11:28 AM [facility] ([facility]) LIPID PANEL, NON FASTING Specimen Type: SERUM No comment entered. Ordering Provider: FLYNN DEJESUS Report Released Date/Time: Mar 11, 2024 11:36 AM Reporting Lab: [address] [address] Performing Lab: [address] [address] CHOLESTEROL 162 mg/dL TRIGLYCERIDE 115 mg/dL 0-150 LDL calculated 99 mg/dL 0-129 CHOL/HDL 4.1 HDL CHOLESTEROL 40 mg/dL 40-60 Mar 20, 2024 11:28 AM [facility] ([facility]) LIVER FUNCTION Specimen Type: SERUM No comment entered. Ordering Provider: FLYNN DEJESUS Report Released Date/Time: Mar 11, 2024 11:36 AM Reporting Lab: [address] [address] Performing Lab: [address] [address] PROTEIN,TOTAL 6.9 g/dL 6.0-8.3 ALBUMIN 3.5 g/dL 3.5-5.0 ALKALINE PHOSPHATASE 79 U/L 40-150 AST 14 U/L 5-34 ALT <6 U/L BILIRUBIN, TOTAL 0.5 mg/dL 0.2-1.2 Mar 20, 2024 11:28 AM [facility] ([facility]) CBC AND DIFF (AUTO) Specimen Type: BLOOD No comment entered. Ordering Provider: FLYNN DEJESUS Report Released Date/Time: Mar 11, 2024 11:36 AM Reporting Lab: [address] [address] Performing Lab: [address] [address] WBC 6.97 10*3/uL 4.50-11.00 RBC 5.38 10*6/uL [...] 10*3/uL 0.00-0.00 Mar 20, 2024 11:27 AM [facility] HEMOGLOBIN A1C PANEL Specimen Type: BLOOD [...] Jan 30, 2024 01:20 PM Reporting Lab: [facility] [address] [address] Performing Lab: [address] [address] HEMOGLOBIN A1C 6.0 H 4.0-5.6 Mar 20, 2024 11:27 AM [facility] BASIC METABOLIC PANEL (non-fasting) Specimen Type: SERUM No comment entered. Ordering Provider: LORY CARPENTER Report Released Date/Time: Jan 30, 2024 01:20 PM Reporting Lab: [facility] [address] [address] Performing Lab: [facility] [address] [address] UREA NITROGEN 21 mg/dL 7-25 GLUCOSE 175 mg/dL H 65-100 SODIUM 139 mmol/L 135-145 POTASSIUM 4.0 mmol/L 3.5-5.0 CHLORIDE 104 mmol/L 100-110 CO2 25 meq/L 20-30 CREATININE, Serum 1.11 mg/dL 0.50-1.40 eGFR(CKD-EPI 2020) 67 mL/min >60 Social History: Smoking Status (Most current) and Tobacco Use (All prior to encounter date) This section includes the most current, and the historical, smoking and tobacco- related health factors from the [place] facility where the Encounter took place. Current Smoking Status This section includes the most current smoking, or tobacco-related health factor, from the [place] facility where the Encounter took place. Date/Time Current Smoking Status Comment Jo william Sep 22, 2023 01:00 PM VA-TOBACCO NEVER USED [place] ([facility]) Tobacco Use History This section includes a history of the smoking, or tobacco-related health factors, that were collected on or before the date of the Encounter. The data comes from the [place] facility where the Encounter took place. Date/Time Smoking Status/Tobacco Use Comment Jerald pinzon December 02, 2022 11:00 AM VA-TOBACCO NEVER USED [facility] ([facility]) Apr 15, 2022 11:30 AM VA-TOBACCO NEVER USED [facility] ([facility]) Apr 07, 2021 11:00 AM VA-TOBACCO NEVER USED [facility] ([facility]) Encounter Notes: All associated encounter notes This section contains the clinical notes associated to the Encounter. Date/Time Encounter Note(s) Provider Source Mar 28, 2024 10:59 AM SOCIAL WORK CONSUL T: LOCAL TITLE: CONSULT REPORT/SOCIAL WORK STANDARD TITLE: SOCIAL WORK CONSULT DATE OF NOTE: MAR 28, 2024@10:59 ENTRY DATE: MAR 28, 2024@10:59:56 AUTHOR: MORA GIFFORD EXP COSIGNER: URGENCY: STATUS: COMPLETED SW reached out to [place] to review consult. [place] discussed medical concerns and that he is working on these concerns. [place] stated that he has a town nurse who visits at least x1 week and VNA nurse visits x1 week. stated that he goes to the wound clinic x1 week. stated that his neighbor assist with getting groceries and taking to appointments. [place] stated that he has family that lives out of the area and visits occassionally. [place] discussed that he is considering moving in with his family for the winter. stated that he is working on getting home health aide assistance in the home and would like to remain at home. [place] stated that he is considering STR at a nursing facility if covered by insurance. RORY provided contact information to to reach out as needed for additional questions. Plan is for [place] to engage with additional home care services for support in the home. /kasia/ OLU Vargas, DOREEN Lining Machine Operator Signed: 03/28/2024 11:02 MORA GIFFORD ([facility]) Mar 28, 2024 10:39 AM SOCIAL WORK NOTE: LOCAL TITLE: SOCIAL WORK NOTE STANDARD TITLE: SOCIAL WORK NOTE DATE OF NOTE: MAR 28, 2024@10:39 ENTRY DATE: MAR 28, 2024@10:39:48 AUTHOR: MORA GIFFORD EXP COSIGNER: URGENCY: STATUS: COMPLETED SOCIAL WORK NOTE Has ADDENDA RORY reached out to [place] to review consult. discussed medical concerns and that he is working on these concerns. stated that he has a town nurse who visits at least x1 week and VNA nurse visits x1 week. [place] stated that he goes to the wound clinic x1 week. [place] stated that his neighbor assist with getting groceries and taking [place] to appointments. stated that he has family that lives out of the area and visits occassionally. [place] discussed that he is considering moving in with his family for the winter. [place] stated that he is working on getting home health aide assistance in the home and would like to remain at home. [place] stated that he is considering STR at a nursing facility if covered by insurance. RORY provided contact information to [place] to reach out as needed for additional questions. Plan is for [place] to engage with additional home care services for support in the home. /kasia/ OLU Vargas, DOREEN Lining Machine Operator Signed: 03/28/2024 10:58 04/04/2024 ADDENDUM STATUS: COMPLETED SW reached out and spoke with briefly to follow up on in home resources. stated that he [facility] [place] health aide today. stated that he is not considering [facility] stay at this time. agreed to contact [facility] as needed. /kasia/ OLU Vargas, DOREEN Lining Machine Operator Signed: 04/04/2024 14:41 MORA GIFFORD ([facility])
--- OUTSIDE RECORDS SUMMARY | 2024-08-07 12:22 | XMS_ITS | Encounter Summary ---
Author Name [facility] Organization [facility] [place] Address [address] [place] [address] Care Team Providers Care Actuary Manager Name Role Phone LENORA DEJESUS Primary [...] Jul 31, 2014 MEDICAR E SUPPLEM E [phone] FR GAMALIEL KAY PATIENT [facility] MEDICARE SUPPLEMEN [facility] SUPP Jul 31, 2014 SUPP [id number] [phone] FR GAMALIEL KAY PATIENT MEDICARE (WNR) MEDICARE (M) PART A Jan 29, 2004 PART A [id number] [phone] FR GAMALIEL KAY PATIENT MEDICARE (WNR) MEDICARE (M) PART B Jan 29, 2004 PART B [id number] [phone] FR GAMALIEL KAY PATIENT [facility] (WNR) MEDICARE ADVANTAGE [facility] ([facility]) Jul 31, 2023 [id number] [phone] FR GAMALIEL AKY PATIENT [facility] MCR (WNR) MEDICARE ADVANTAGE [facility] (WNR) Jul 31, 2023 [id number] [phone] FR GAMALIEL KAY PATIENT Selected Encounter This section includes the information on record at [place] for the Encounter. Date/Time Encounter Type Encounter Description Reason Provider Source Apr 04, 2024 11:53 AM Outpatient Encounter TELEPHONE/GERIATRIC BARBIE PA Encounter Template Text not used by [place] Plan of Treatment: Future Appointments (+ 6 months) and Future Tests (+/- 45 days) The Plan of Treatment section includes future care activities for the patient from all [place] treatmentfafirsthealthities. This section includes future appointments and future [...] 19, 2024 01:00 PM AMBULATORY - MEDICINE [facility] Jun 25, 2024 02:30 PM AMBULATORY - MEDICINE [facility] Jul 30, 2024 03:30 PM AMBULATORY - MEDICINE [facility] Aug 07, 2024 01:00 PM AMBULATORY - MEDICINE [facility] Aug 14, 2024 10:00 AM AMBULATORY - NONE [facility] Sep 02, 2024 03:30 PM AMBULATORY - MEDICINE [facility] Sep 18, 2024 11:00 AM AMBULATORY - MEDICINE [facility] ([facility]) Lab Results: +/- 30 days of the [...] Range Comment Mar 20, 2024 11:40 AM [facility] ([facility]) MICROALBUMIN CREATININE RATIO PANEL Specimen Type: URINE No comment entered. Ordering Provider: FLYNN DEJESUS Report Released Date/Time: Mar 11, 2024 11:36 AM Reporting Lab: [address] [address] Performing Lab: [address] [address] MICROALBUMIN/C REATININE RATIO 13.3 mg/g 0-29.9 MICROALBUMIN,Q UANTITATIVE 2.0 mg/dL RR UNAVAIL CREATININE URINE 150.03 mg/dL Mar 20, 2024 11:40 AM [facility] ([facility]) URINALYSIS Specimen Type: URINE Comment: If Glucose = >500 and Ketones are positive, please alert the Physician. Ordering Provider: FLYNN DEJESUS Report Released Date/Time: Mar 11, 2024 11:36 AM Reporting Lab: [address] [address] Performing Lab: [address] [address] UA COLOR Yellow Yellow UA APPEARANCE Clear Clear UA GLUCOSE Normal mg/dL Negative UA KETONES NEGATIVE mg/dL Negative UA BLOOD NEGATIVE mg/dL Negative UA PROTEIN 10 mg/dL Negative UA NITRITE NEGATIVE mg/dL Negative UA BILIRUBIN NEGATIVE mg/dL Negative UA SPECIFIC GRAVITY 1.023 H 1.016-1.02 2 UA pH 6.0 5.0-9.0 UA UROBILINOGEN Normal mg/dL <2.0 UA LEUKOCYTE SMALL Negative Mar 20, 2024 11:40 AM [facility] ([facility]) MICROSCOPIC AUTOMATED, URINE Specimen Type: URINE Comment: If Glucose = >500 and Ketones are positive, please alert the Physician. Ordering Provider: FLYNN DEJESUS Report Released Date/Time: Mar 11, 2024 11:36 AM Reporting Lab: [address] [address] Performing Lab: [address] [address] UA WBC 6-10 /[HPF] H 0-5 UA MUCUS FEW /[LPF] Trace UA RBC 0-2 /[HPF] 0-3 UA SQUAMOUS EPITH FEW /[HPF] Mar 20, 2024 11:28 AM [facility] ([facility]) VITAMIN B12 Specimen Type: SERUM No comment entered. Ordering Provider: FLYNN DEJESUS Report Released Date/Time: Mar 11, 2024 11:36 AM Reporting Lab: [address] [address] Performing Lab: [address] [address] VITAMIN B12 386 pg/mL 200-900 Mar 20, 2024 11:28 AM [facility] ([facility]) VITAMIN D (25-OH) Specimen Type: SERUM No comment entered. Ordering Provider: FLYNN DEJESUS Report Released Date/Time: Mar 11, 2024 11:36 AM Reporting Lab: [address] [address] Performing Lab: [address] [address] VITAMIN D (25-OH) 29 ng/mL 20-50 Mar 20, 2024 11:28 AM [facility] ([facility]) TSH Specimen Type: SERUM No comment entered. Ordering Provider: FLYNN DEJESUS Report Released Date/Time: Mar 11, 2024 11:36 AM Reporting Lab: [address] [address] Performing Lab: [address] [address] TSH 1.56 u[IU]/mL 0.35-5.00 Mar 20, 2024 11:28 AM [facility] ([facility]) LIPID PANEL, NON FASTING Specimen Type: SERUM No comment entered. Ordering Provider: FLYNN DEJESUS Report Released Date/Time: Mar 11, 2024 11:36 AM Reporting Lab: [address] [address] Performing Lab: [address] [address] CHOLESTEROL 162 mg/dL TRIGLYCERIDE 115 mg/dL 0-150 LDL calculated 99 mg/dL 0-129 CHOL/HDL 4.1 HDL CHOLESTEROL 40 mg/dL 40-60 Mar 20, 2024 11:28 AM [facility] ([facility]) LIVER FUNCTION Specimen Type: SERUM No comment entered. Ordering Provider: FLYNN DEJESUS Report Released Date/Time: Mar 11, 2024 11:36 AM Reporting Lab: [address] [address] Performing Lab: [address] [address] PROTEIN,TOTAL 6.9 g/dL 6.0-8.3 ALBUMIN 3.5 g/dL 3.5-5.0 ALKALINE PHOSPHATASE 79 U/L 40-150 AST 14 U/L 5-34 ALT <6 U/L BILIRUBIN, TOTAL 0.5 mg/dL 0.2-1.2 Mar 20, 2024 11:28 AM [facility]) CBC AND DIFF (AUTO) Specimen Type: BLOOD No comment entered. Ordering Provider: FLYNN DEJESUS Report Released Date/Time: Mar 11, 2024 11:36 AM Reporting Lab: [address] [address] Performing Lab: [address] [address] WBC 6.97 10*3/uL 4.50-11.00 RBC 5.38 10*6/uL [...] 10*3/uL 0.00-0.00 Mar 20, 2024 11:27 AM [facility] HEMOGLOBIN A1C PANEL Specimen Type: BLOOD Comment: Values obtained from A1C measurements can vary. For atypical A1C assays, a reported value of 7.0 could actually be between 6.72 and 7.28 if measured by a reference method. A reported value of 9.0 could actually be between 8.73 and 9.27. Ref: http://www.ngs p.org/CAPdata. asp Ordering Provider: OLRY CARPENTER Report Released Date/Time: Jan 30, 2024 01:20 PM Reporting Lab: [address] [address] Performing Lab: [address] [address] HEMOGLOBIN A1C 6.0 H 4.0-5.6 Mar 20, 2024 11:27 AM [facility] BASIC METABOLIC PANEL (non-fasting) Specimen Type: SERUM No comment entered. Ordering Provider: LORY CARPENTER Report Released Date/Time: Jan 30, 2024 01:20 PM Reporting Lab: [address] [address] Performing Lab: [address] [address] UREA NITROGEN 21 mg/dL 7-25 GLUCOSE 175 mg/dL H 65-100 SODIUM 139 mmol/L 135-145 POTASSIUM 4.0 mmol/L 3.5-5.0 CHLORIDE 104 mmol/L 100-110 CO2 25 meq/L 20-30 CREATININE, Serum 1.11 mg/dL 0.50-1.40 eGFR(CKD-EPI 2020) 67 mL/min >60 Encounter Notes: All associated encounter notes This section contains the clinical notes associated to the Encounter. Date/Time Encounter Note(s) Provider Source Apr 04, 2024 11:53 AM GERIATRIC MEDICINE NOTE: LOCAL TITLE: PERSONAL CARE SERVICES CASE MIX TOOL STANDARD TITLE: GERIATRIC MEDICINE NOTE DATE OF NOTE: APR 04, 2024@11:53:14 ENTRY DATE: APR 04, 2024@11:53:14 AUTHOR: DULCE MARIA TERRAZAS COSIGNER: URGENCY: STATUS: COMPLETED HCBS Case Mix & Budget Tool (CASE MIX) Date Given: 04/04/2024 Clinician: Dulce Maria Terrazas Location: [facility]/telephone Rn Baker: Erich Kay SSN: [id number] : [birth year]) Gender: Man Type of Evaluation: Initial Anticipated Start Date: 04/04/2024 Anticipated Length of Service: 12 months Case Mix Level: D ADL Category: Medium Questions and Answers: Q1. DRESSING *2 Need some help from another person to put your clothes on. Q2. GROOMING 1 Need and get supervision or reminding or grooming activities. Q3. BATHING 3 Need and get help getting in and out of the tub. Q4. EATING *2 Need and get help in cutting food, buttering bread or arranging food. Q5. BED MOBILITY 0 Can move in bed without any help. Q6. TRANSFERRING 0 Can get in and out of a bed or chair without help of any kind. Q7. WALKING *2 Need and get help from one person to help you walk. Q8. BEHAVIOR 1 Occasional staff intervention / anxious, irritable, lethargic, demanding / responds to cues. Q9. COMMUNICATION 0 Understood. Q10. TOILETING *2 Have accidents sometimes, but not more than once a week. Q11. MDS HC 2.0/CPS Cognitive Skill for Daily Decision Making 1 Modified [place] - some difficulty in new situations only. Q12. MDS 2.0/CPS: Short Term Memory (recall of what was learned or known) 0 Short-term memory okay- seems/appears to recall after 5 minutes Q13. SPECIAL TREATMENTS 2 One or more [place] such as: 10. Skin Care,open wound on foot Q14. CLINICAL MONITORING 0 Less than once a day Q15. SPECIAL NURSING No Q16. NEUROMUSCULAR DIAGNOSIS Yes COMMENTS Baker is in need of assistance. Authorize fixture designer 10 hrs/week for assistance with pc/adl's/iadl's includes respite. SOURCES 1. Person, 3. Medical Record // Dulce Maria Terrazas RN RN Signed: 04/04/2024 12:10 DULCE MARIA TERRAZAS [facility]
--- OUTSIDE RECORDS SUMMARY | 2024-08-07 12:22 | XMS_ITS | Encounter Summary ---
Author Name [facility] [place] Organization [facility] [place] Address [address] [place] [id number] Care Team Providers Care Water Proofer Name Role Phone LENORA DEJESUS Primary Care [...] Jul 31, 2014 MEDICAR E SUPPLEM E [id number] [phone] FR GAMALIEL KAY PATIENT [facility] MEDICARE SUPPLEMEN [facility] MEDIC ARE SUPP Jul 31, 2014 SUPP [id number] [phone] FR GAMALIEL KAY PATIENT MEDICARE (WNR) MEDICARE (M) PART A Jan 29, 2004 PART A [id number] [phone] FR GAMALIEL KAY PATIENT MEDICARE (WNR) MEDICARE (M) PART B Jan 29, 2004 PART B [id number] [phone] FR GAMALIEL KAY PATIENT [facility] (WNR) MEDICARE ADVANTAGE [facility] ([facility]) Jul 31, 2023 [id number] [phone] FR GAMALIEL KAY PATIENT [facility] MCR (WNR) MEDICARE ADVANTAGE [facility] (WNR) Jul 31, 2023 [id number] [phone] FR GAMALIEL KAY PATIENT Selected Encounter This section includes the information on record at [place] for the Encounter. Date/Time Encounter Type Encounter Description Reason Provider Source Mar 27, 2024 01:00 PM OFFICE O/P EST MOD 30 MIN PRIMARY CARE/MEDICINE ICD-10-CM E11.621 Type 2 diabetes mellitus with foot ulcer FLYNN DEJESUS Mitzi Encounter Template Text not used by [place] Assessments - Encounter Diagnoses This section includes the primary and secondary diagnoses documented for the Encounter. Date/Time Primary/Secondary Diagnosis Diagnosis Name Provider Source Apr 01, 2024 04:16 PM PRIMARY Type 2 diabetes mellitus with foot ulcer HUBER DEJESUSFIELD ([facility]) Apr 01, 2024 04:16 PM SECONDARY Essential (primary) hypertension HUBER DEJESUSFIELD ([facility]) Apr 01, 2024 04:16 PM SECONDARY Tremor, unspecified ANJELICAMARCELINANENA SANCHEZ Kurt [place] ([facility]) Apr 01, 2024 04:16 PM SECONDARY Type 2 diabetes mellitus without complications ANJELICAMARCELINANENA SANCHEZ Kurt [place] ([facility]) Apr 01, 2024 04:16 PM SECONDARY Unspecified atrial fibrillation ANJELICAMARCELINANENA SANCHEZ Kurt [place] ([facility]) Plan of Treatment: [...] 08:00 AM AMBULATORY - MEDICINE [facility] RASHIDA ERVIN [facility] May 15, 2024 02:00 PM AMBULATORY - MEDICINE [facility] ([facility]) Jun 12, 2024 11:00 AM AMBULATORY - MEDICINE [facility] ([facility]) Jun 19, 2024 01:00 PM AMBULATORY - MEDICINE [facility] Jun 25, 2024 02:30 PM [facility]BULAT[facility] - [facility]ICINE [place] [facility] Jul 30, 2024 03:30 PM AMBULATORY - MEDICINE [facility] ([facility]) Aug 07, 2024 01:00 PM AMBULATORY - MEDICINE [place] [facility] Aug 14, 2024 10:00 AM AMBULATORY - NONE [place] [facility] Sep 02, 2024 03:30 PM AMBULATORY - MEDICINE [place] C [facility] Sep 18, 2024 11:00 AM AMBULATORY - MEDICINE [facility] ([facility]) Lab Results: +/- 30 days of the encounter This section includes the Chemistry and Hematology Lab Results on record with [place] for the patient. Radiology Reports and Pathology Reports are provided separately, in subsequent sections. Lab Results This section contains the Chemistry/Hematology Results that were resulted 30 days before or 30 daysafter the date of the Encounter. Date/Time Source Result Type Result - Unit Interpretation Reference Range Comment Mar 20, 2024 11:40 AM [place] ([facility]) MICROALBUMIN CREATININE RATIO PANEL Specimen Type: URINE No comment entered. Ordering Provider: FLYNN DEJESUS Report Released Date/Time: Mar 11, 2024 11:36 AM Reporting Lab: [address] [address] Performing Lab: [address] [address] MICROALBUMIN/C REATININE RATIO 13.3 mg/g 0-29.9 MICROALBUMIN,Q UANTITATIVE 2.0 mg/dL RR UNAVAIL CREATININE URINE 150.03 mg/dL Mar 20, 2024 11:40 AM [place] ([facility]) URINALYSIS Specimen Type: URINE Comment: If Glucose = >500 and Ketones are positive, please alert the Physician. Ordering Provider: FLYNN DEJESUS Report Released Date/Time: Mar 11, 2024 11:36 AM Reporting Lab: [facility] [address] [facility] [address] Performing Lab: [address] [address] UA COLOR Yellow Yellow UA APPEARANCE Clear Clear UA GLUCOSE Normal mg/dL Negative UA KETONES NEGATIVE mg/dL Negative UA BLOOD NEGATIVE mg/dL Negative UA PROTEIN 10 mg/dL Negative UA NITRITE NEGATIVE mg/dL Negative UA BILIRUBIN NEGATIVE mg/dL Negative UA SPECIFIC GRAVITY 1.023 H 1.016-1.02 2 UA pH 6.0 5.0-9.0 UA UROBILINOGEN Normal mg/dL <2.0 UA LEUKOCYTE SMALL Negative Mar 20, 2024 11:40 AM [place] ([facility]) MICROSCOPIC AUTOMATED, URINE Specimen Type: URINE Comment: If Glucose = >500 and Ketones are positive, please alert the Physician. Ordering Provider: FLYNN DEJESUS Report Released Date/Time: Mar 11, 2024 11:36 AM Reporting Lab: [address] [address] Performing Lab: [address] [address] UA WBC 6-10 /[HPF] H 0-5 UA MUCUS FEW /[LPF] Trace UA RBC 0-2 /[HPF] 0-3 UA SQUAMOUS EPITH FEW /[HPF] Mar 20, 2024 11:28 AM [place] ([facility]) VITAMIN B12 Specimen Type: SERUM No comment entered. Ordering Provider: FLYNN DEJESUS Report Released Date/Time: Mar 11, 2024 11:36 AM Reporting Lab: [address] [address] Performing Lab: [address] [address] VITAMIN B12 386 pg/mL 200-900 Mar 20, 2024 11:28 AM [place] ([facility]) VITAMIN D (25-OH) Specimen Type: SERUM No comment entered. Ordering Provider: FLYNN DEJESUS Report Released Date/Time: Mar 11, 2024 11:36 AM Reporting Lab: [address] [address] Performing Lab: [address] [address] VITAMIN D (25-OH) 29 ng/mL 20-50 Mar 20, 2024 11:28 AM [place] ([facility]) TSH Specimen Type: SERUM No comment entered. Ordering Provider: FLYNN DEJESUS Report Released Date/Time: Mar 11, 2024 11:36 AM Reporting Lab: [address] [address] Performing Lab: [address] [address] TSH 1.56 u[IU]/mL 0.35-5.00 Mar 20, 2024 11:28 AM [place] ([facility]) LIVER FUNCTION Specimen Type: SERUM No comment entered. Ordering Provider: FLYNN DEJESUS Report Released Date/Time: Mar 11, 2024 11:36 AM Reporting Lab: [address] [address] Performing Lab: [address] [address] PROTEIN,TOTAL 6.9 g/dL 6.0-8.3 ALBUMIN 3.5 g/dL 3.5-5.0 ALKALINE PHOSPHATASE 79 U/L 40-150 AST 14 U/L 5-34 ALT <6 U/L BILIRUBIN, TOTAL 0.5 mg/dL 0.2-1.2 Mar 20, 2024 11:28 AM [place] ([facility]) LIPID PANEL, NON FASTING Specimen Type: SERUM No comment entered. Ordering Provider: FLYNN DEJESUS Report Released Date/Time: Mar 11, 2024 11:36 AM Reporting Lab: [address] [address] Performing Lab: [address] [address] CHOLESTEROL 162 mg/dL TRIGLYCERIDE 115 mg/dL 0-150 LDL calculated 99 mg/dL 0-129 CHOL/HDL 4.1 HDL CHOLESTEROL 40 mg/dL 40-60 Mar 20, 2024 11:28 AM [place] ([facility]) CBC AND DIFF (AUTO) Specimen Type: BLOOD No comment entered. Ordering Provider: FLYNN DEJESUS Report Released Date/Time: Mar 11, 2024 11:36 AM Reporting Lab: [address] [address] Performing Lab: [facility] [address] [facility] [address] WBC 6.97 10*3/uL 4.50-11.00 RBC 5.38 10*6/uL [...] 10*3/uL 0.00-0.00 Mar 20, 2024 11:27 AM [facility] HEMOGLOBIN A1C PANEL Specimen Type: BLOOD Comment: [...] 30, 2024 01:20 PM Reporting Lab: [facility] [address] [facility] [address] Performing Lab: [facility] [address] [facility] [address] HEMOGLOBIN A1C 6.0 H 4.0-5.6 Mar 20, 2024 11:27 AM [facility] BASIC METABOLIC PANEL (non-fasting) Specimen Type: SERUM No comment entered. Ordering Provider: LORY CARPENTER Report Released Date/Time: Jan 30, 2024 01:20 PM Reporting Lab: [facility] [address] [facility] [address] Performing Lab: [facility] [address] [facility] [address] UREA NITROGEN 21 mg/dL 7-25 GLUCOSE 175 mg/dL H 65-100 SODIUM 139 mmol/L 135-145 POTASSIUM 4.0 mmol/L 3.5-5.0 CHLORIDE 104 mmol/L 100-110 CO2 25 meq/L 20-30 CREATININE, Serum 1.11 mg/dL 0.50-1.40 eGFR(CKD-EPI 2020) 67 mL/min >60 Vital Signs: All taken on the encounter date This section contains inpatient and outpatient Vital Signs collected on the date of the Encounter. Date/Time Temperature Pulse Blood Pressure Respiratory Rate SP02 Pain Height Weight Body Mass Index Source Mar 27, 2024 01:11 PM 98.8 90 109/71 20 95 2 208.8 35 [facility] Social History: Smoking Status (Most current) [...] 22, 2023 01:00 PM VA-TOBACCO NEVER USED [place] ([facility]) Tobacco Use History This section includes a history of the smoking, or tobacco-related health factors, that were collected on or before the date of the Encounter. The data comes from the [place] facility where the Encounter took place. Date/Time Smoking Status/Tobacco Use Comment F acility December 02, 2022 11:00 AM VA-TOBACCO NEVER USED [place] ([facility]) Apr 15, 2022 11:30 AM VA-TOBACCO NEVER USED [place] ([facility]) Apr 07, 2021 11:00 AM VA-TOBACCO NEVER USED [place] ([facility]) Encounter Notes: All associated encounter notes This section contains the clinical notes associated to the Encounter. Date/Time Encounter Note(s) Provider Source Mar 27, 2024 01:16 PM PHYSICIAN NOTE: LOCAL TITLE: MD NOTE STANDARD TITLE: PHYSICIAN NOTE DATE OF NOTE: MAR 27, 2024@13:16 ENTRY DATE: MAR 27, 2024@13:16:33 AUTHOR: LENORA DEJESUS EXP COSIGNER: URGENCY: STATUS: COMPLETED PRIMARY CARE VISIT MUKUL KAY, is a 83 yo WHITE MALE [place] who presents at the [facility]. TYPE OF VISIT: Face to face 82-year-old [place] with significant Charcot foot disease, Parkinson's disease, dua-zlxldec-oukrrhfgl diabetes, HTN, atrial fibrillation/sick sinus syndrome status post pacemaker, tremors,and history of lymphoma, BCC, and malignant melanoma. Recent ER admission 12/01/2023 for left diabetic foot infection and sepsis. He currently is following up with wound care clinic Dr. Jose Vaughn, has tell nurse visiting twice per week. Recent wound clinic visit was concerning. The physician expressed concern that patient would be doing better in a residential facility. [place] that he is not getting enough supports at home. Family lives in [place] and does not come out to visit often. He does have a neighbor who brings him to appointments. PCP: [place] Cardiology: [facility] Derm: [place] Wound clinic: [facility] Social Hx: The patient has a roommate. No alcohol, nicotine, MJ. No regular exercise. HISTORY: PERIOD OF SERVICE - [facility] [employer] FROM May TO Jul COMBAT SERVICE INDICATED: No VITAL SIGNS: Temperature 98.8 F [37.1 C] (03/27/2024 13:11) Blood Pressure 109/71 (03/27/2024 13:11) Pulse 90 (03/27/2024 13:11) Respiration 20 (03/27/2024 13:11) Pain 2 (03/27/2024 13:11) BMI BMI: 34.8 Weight 208.8 lb [94.71 kg] (03/27/2024 13:11) Pulse Oximetry 95% (03/27/2024 13:11) ASSISTIVE DEVICES: REVIEW OF SYSTEMS: CONSTITUTIONAL: No [...] both shoulders right knee and left lower , severe deformities lower extremities with ulcerations, Charcot foot therefore no pain due to neuropathy PSYCHIATRIC: No new anxiety or depression. No sleep disturbance. NEUROLOGIC: No headaches, dizziness, neuropathy of the bilateral feet. With deformities EXAMINATION General: Well-appearing [place] in no obvious distress. Mental Status: Alert [...] intact Neuro: grossly intact, significant neuropathy feet Derm: +hemosiderin staining to BLLE Get up and go slow and antalgic (X )with walker, using wheelchair for long distance in clinic ALLERGIES: ========= LISINOPRIL, METFORMIN >> HEALTH MAINTENANCE PREVENTIVE MEDICINE GOALS High Risk for HYPOglycemia Mar 22 Medication Reconciliation DUE NOW (Optional) Whole Health Documentation DUE NOW ASSESSMENT/PLAN: Active problems - Computerized Problem List is the source for the followin. Spinal stenosis 2. Basal Cell Carcinoma of Skin ([facility] [id number]) 3. Parkinson's disease 4. Diabetes Mellitus Type 2 ([facility] [id number]) 5. HTN - Hypertension ([facility] [id number]) 6. History of malignant melanoma of the skin 7. AF- Atrial Fibrillation ([facility] [id number]) 8. Permanent cardiac pacemaker 9. Lymphedema of leg 10. Tremor == Charcot foot: Using cam walker and specialty shoes. == Left foot ulcerations: Continues to see wound care. We are going to try to get some more residential approved to help patient at home. We spoke extensively today about the possibility of [place] moving either in with family or closer to family. And to consider residential facility. Unfortunately he has 0 service connection and this would have to be done through his private insurance. Discussed HBP referral and he agrees == Diabetes: Recent A1c 6.0. It was advised for him to stop the glimepiride and he was switched to Sitagliptin. He states that he developed pain and stopped this and restarted the glimepiride. His A1c is very well-controlled so I advised due to risk of hypoglycemia to take 1/2 tab glimepiride. == Atrial fibrillation: On apixaban 5 mg twice daily and metoprolol 50 mg twice daily. Rate is usually 90-100. He has pacemaker in place == Hypertension: Well-controlled on current medications == Tremor: Following up with neurology FOLLOW UP: RTC Below & sooner PRN UPCOMING APPOINTMENTS: 04/08/2024 15:30 CWM/GO/TELE/PHARM/PACT 1 06/25/2024 14:30 NHM/OPTOMETRY/[place]/ 08/07/2024 13:00 [facility]-NEUROLOGY 10/07/2024 14:30 CWM/GO/DERMATOLGY A minutes spent in patient evaluation, data review, and patient education. All medications were reconciled during this visit. No barriers; Patient understands and agrees to current treatment plan. If pt has any questions, concerns, or changes in current health status he/she will call or come [facility] to the [facility]. High Risk for HYPOglycemia: Not reported. Hypoglycemic screen clinical decision: Relax glycemic treatment. /kasia/ LENORA DEJESUS MD PHYSICIAN Signed: 04/01/2024 16:17 LENORA DEJESUS ([facility]) Mar 27, 2024 01:12 PM PREVENTIVE MEDICIN E NURSING NOTE: LOCAL TITLE: CLINICAL REMINDERS/NURSING STANDARD TITLE: PREVENTIVE MEDICINE NURSING NOTE DATE OF NOTE: MAR 27, 2024@13:12 ENTRY DATE: MAR 27, 2024@13:12:46 AUTHOR: CHRISTOPHER COLLINS EXP COSIGNER: URGENCY: STATUS: COMPLETED Influenza Immunization: No influenza vaccination was received during the recent influenza season. COVID-19 Immunization: Defer due to a PRECAUTION Reason: wants to wait PAVE Foot Check: A complete foot check was completed at this encounter. VISUAL INSPECTION: Includes inspection for skin breaks, deformity, erythema, trauma, pallor on elevation, dependent rubor, nail deformities, extensive callus and pitting edema. Visual exam results: Abnormal Observations: Non-healing wound, Thickened toenails PEDAL PULSES: Includes palpation of dorsalis and posterior tibial pulses and signs/symptoms of vascular compromise like pain, pallor, parasthesia or paralysis. Present (even if diminished) Comment: very diminished SENSORY CHECK: Includes 10 gram Monofilament (Leonard-Ilda) test of sensation. Intact (Greater than or equal to 80% of sites checked) Abnormal (Less than 80% of sites checked): Abnormal (decreased or absent sensation to monofilament): Comment: decreased sensation HIGH-RISK: HIGH RISK INFORMATION PROVIDED: 1. Advised patient that extra depth footwear with soft molded inserts and braces may be required. 2. Advised patient not to walk barefoot. 3. Explained the importance of daily foot checks. 4. Stressed the importance of daily foot hygiene, including bathing, complete drying and thorough inspection for changes. The patient verbalized understanding and was offered a detailed handout on diabetic foot care. Patient being seen by an outside protein specialist and wound care Advance Directive Screen AD: Patient has an up-to-date Advance Directive at an outside, non-va facility and was asked to forward a copy to his/her clinician. /kasia/ CHRISTOPHER COLLINS LPN LICENSED PRACTICAL NURSE Signed: 03/27/2024 13:15 CHRISTOPHER COLLINS ([facility])
--- OUTSIDE RECORDS SUMMARY | 2024-08-07 12:22 | XMS_ITS | Encounter Summary ---
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 Pile Driver Operator Name Role Phone LENORA DEJESUS Primary [...] Welsh's Name Patient's Relationship to Policy Welsh [facility] MEDICARE SUPPLEMEN [employer] MA IND Jul 31, 2014 MEDICAR E SUPPLEM E [id number] [phone] FR GAMALIEL KAY PATIENT [facility] MEDICARE SUPPLEMEN [place] MEDIC ARE SUPP Jul 31, 2014 SUPP [id number] [phone] FR RAHUL EDGISSEL PATIENT MEDICARE (WNR) MEDICARE (M) PART A Jan 29, 2004 PART A [id number] [phone] FR GAMALIEL KAY PATIENT MEDICARE (WN) MEDICARE (M) PART B Jan 29, 2004 PART B [id number] [phone] FR GAMALIEL KAY PATIENT [facility] (WN) MEDICARE ADVANTAGE [facility] Jul 31, 2023 [id number] [phone] FR GAMALIEL KAY PATIENT [facility] (WNR) MEDICARE ADVANTAGE [facility] (WNR) Jul 31, 2023 [id number] [phone] FR GAMALIEL KAY PATIENT Selected Encounter This section includes the information on record at [facility] for the Encounter. Date/Time Encounter Type Encounter Description Reason Pro vider Source IHE Encounter Template Text not used by VA
--- OUTSIDE RECORDS SUMMARY | 2024-08-07 12:22 | XMS_ITS ---
Author Name [facility] [place] Address [address] [place] [address] Care Team Providers Care Financial Services Specialist Name Role Phone LENORA DEJESUS Primary [...] Jul 31, 2014 MEDICAR E SUPPLEM E [id number] [phone] FR GAMALIEL KAY PATIENT [facility] MEDICARE SUPPLEMEN [facility] MEDIC ARE SUPP Jul 31, 2014 SUPP [id number] [phone] FR GAMALIEL KAY PATIENT MEDICARE (WNR) MEDICARE (M) PART A Jan 29, 2004 PART A [id number] [phone] FR GAMALIEL KAY PATIENT MEDICARE (WNR) MEDICARE (M) PART B Jan 29, 2004 PART B [id number] [phone] FR GAMALIEL KAY PATIENT [facility] (WNR) MEDICARE ADVANTAGE [facility] (R) Jul 31, 2023 [id number] [phone] FR GAMALIEL KAY PATIENT [facility] MCR (WNR) MEDICARE ADVANTAGE MCR (WNR) Jul 31, 2023 [id number] [phone] FR GAMALIEL KAY PATIENT Selected Encounter This section includes the information [place] at [place] for the Encounter. Date/Time Encounter Type Encounter Description Reason Pro vider Source Apr 08, 2024 12:56 PM Outpatient Encounter COMMUNITY CARE CONSULT IHE [...] PM AMBULATORY - MEDICINE [facility] Jun 12, 2024 11:00 AM AMBULATORY - MEDICINE [facility] Jun 19, 2024 01:00 PM [place] [facility] Jun 25, 2024 02:30 PM [place] [facility] Jul 30, 2024 03:30 PM AMBULATORY - MEDICINE [facility] Aug 07, 2024 01:00 PM [place]ORY [place] [facility] Aug 14, 2024 10:00 AM AMBULATORY - NONE [place] [facility] [facility] Sep 02, 2024 03:30 PM [place]ORY [place] [facility] Sep 18, 2024 11:00 AM AMBULATORY - MEDICINE [facility] Lab Results: +/- 30 days of the encounter This section includes the Chemistry and Hematology Lab Results on record with [place] for the patient. Radiology Reports and Pathology Reports are provided separately, in subsequent sections. Lab Results This section contains the Chemistry/Hematology Results that were resulted 30 days before or 30 daysafter the date of the Encounter. Date/Time Source Result Type Result - Unit Interpretation Reference Range Comment Mar 20, 2024 11:40 AM [facility] MICROALBUMIN CREATININE RATIO PANEL Specimen Type: URINE No comment entered. Ordering Provider: FLYNN DEJESUS Report Released Date/Time: Mar 11, 2024 11:36 AM Reporting Lab: [address] [address] Performing Lab: [address] [address] MICROALBUMIN/C REATININE RATIO 13.3 mg/g 0-29.9 MICROALBUMIN,Q UANTITATIVE 2.0 mg/dL RR UNAVAIL CREATININE URINE 150.03 mg/dL Mar 20, 2024 11:40 AM [facility] URINALYSIS Specimen Type: URINE Comment: If Glucose = >500 and Ketones are positive, please alert the Physician. Ordering Provider: FLYNN DEJESUS Report Released Date/Time: Mar 11, 2024 11:36 AM Reporting Lab: [address] [address] Performing Lab: [address] [address] UA COLOR Yellow Yellow UA APPEARANCE Clear Clear UA GLUCOSE Normal mg/dL Negative UA KETONES NEGATIVE mg/dL Negative UA BLOOD NEGATIVE mg/dL Negative UA PROTEIN 10 mg/dL Negative UA NITRITE NEGATIVE mg/dL Negative UA BILIRUBIN NEGATIVE mg/dL Negative UA SPECIFIC GRAVITY 1.023 H 1.016-1.02 2 UA pH 6.0 5.0-9.0 UA UROBILINOGEN Normal mg/dL <2.0 UA LEUKOCYTE SMALL Negative Mar 20, 2024 11:40 AM [facility] MICROSCOPIC AUTOMATED, URINE Specimen Type: URINE Comment: If Glucose = >500 and Ketones are positive, please alert the Physician. Ordering Provider: FLYNN DEJESUS Report Released Date/Time: Mar 11, 2024 11:36 AM Reporting Lab: [address] [address] Performing Lab: [address] [address] UA WBC 6-10 /[HPF] H 0-5 UA MUCUS FEW /[LPF] Trace UA RBC 0-2 /[HPF] 0-3 UA SQUAMOUS EPITH FEW /[HPF] Mar 20, 2024 11:28 AM [facility] ([facility]) VITAMIN B12 Specimen Type: SERUM No comment entered. Ordering Provider: FLYNN DEJESUS Report Released Date/Time: Mar 11, 2024 11:36 AM Reporting [facility]: [facility] [address] [address] Performing Lab: [facility] [address] [address] VITAMIN B12 386 pg/mL 200-900 Mar 20, 2024 11:28 AM [facility] ([facility]) VITAMIN D (25-[place]) Specimen Type: SERUM No comment entered. Ordering Provider: FLYNN DEJESUS Report Released Date/Time: Mar 11, 2024 11:36 AM Reporting Lab: [address] [address] Performing Lab: [address] [address] VITAMIN D (25-[place]) 29 ng/mL 20-50 Mar 20, 2024 11:28 AM [facility] ([facility]) TSH Specimen Type: SERUM No comment entered. Ordering Provider: FLYNN DEJESUS Report Released Date/Time: Mar 11, 2024 11:36 AM Reporting Lab: [address] [address] Performing [facility]: [facility] [address] [address] TSH 1.56 u[IU]/mL 0.35-5.00 Mar 20, 2024 11:28 AM [facility] ([facility]) LIVER FUNCTION Specimen Type: SERUM No comment entered. Ordering Provider: FLYNN DEJESUS Report Released Date/Time: Mar 11, 2024 11:36 AM Reporting Lab: [facility] [address] [address] Performing Lab: [address] [address] PROTEIN,TOTAL 6.9 g/dL 6.0-8.3 ALBUMIN 3.5 g/dL 3.5-5.0 ALKALINE PHOSPHATASE 79 U/L 40-150 AST 14 U/L 5-34 ALT <6 U/L BILIRUBIN, TOTAL 0.5 mg/dL 0.2-1.2 Mar 20, 2024 11:28 AM [facility] ([facility]) LIPID PANEL, NON FASTING Specimen Type: SERUM No comment entered. Ordering Provider: FLYNN DEJESUS Report Released Date/Time: Mar 11, 2024 11:36 AM Reporting Lab: [address] [address] Performing Lab: [address] [address] CHOLESTEROL 162 mg/dL TRIGLYCERIDE 115 mg/dL 0-150 LDL calculated 99 mg/dL 0-129 CHOL/HDL 4.1 HDL CHOLESTEROL 40 mg/dL 40-60 Mar 20, 2024 11:28 AM [facility] ([facility]) CBC AND DIFF (AUTO) Specimen Type: BLOOD No comment entered. Ordering Provider: FLYNN DEJESUS Report Released Date/Time: Mar 11, 2024 11:36 AM Reporting Lab: [address] [address] Performing Lab: [address] [address] WBC 6.97 10*3/uL 4.50-11.00 RBC 5.38 10*6/uL [...] 10*3/uL 0.00-0.00 Mar 20, 2024 11:27 AM [facility] HEMOGLOBIN A1C PANEL Specimen Type: BLOOD Comment: [...] Jan 30, 2024 01:20 PM Reporting Lab: [address] [address] Performing Lab: [address] [address] HEMOGLOBIN A1C 6.0 H 4.0-5.6 Mar 20, 2024 11:27 AM [facility] BASIC METABOLIC PANEL (non-fasting) Specimen Type: SERUM No comment entered. Ordering Provider: LORY CARPENTER Report Released Date/Time: Jan 30, 2024 01:20 PM Reporting Lab: [address] [address] Performing Lab: [address] [address] UREA NITROGEN 21 mg/dL 7-25 GLUCOSE 175 mg/dL H 65-100 SODIUM 139 mmol/L 135-145 POTASSIUM 4.0 mmol/L 3.5-5.0 CHLORIDE 104 mmol/L 100-110 CO2 25 meq/L 20-30 CREATININE, Serum 1.11 mg/dL 0.50-1.40 eGFR(CKD-EPI 2020) 67 mL/min >60 Encounter Notes: All associated encounter notes This section contains the clinical notes associated to the Encounter. Date/Time Encounter Note(s) Provider Source Apr 08, 2024 12:56 PM ADMINISTRATIVE NOT E: LOCAL TITLE: ADMINISTRATIVE NOTE STANDARD TITLE: ADMINISTRATIVE NOTE DATE OF NOTE: APR 08, 2024@12:56 ENTRY DATE: APR 08, 2024@12:57:05 AUTHOR: PARMINDER CANSECO EXP COSIGNER: URGENCY: STATUS: COMPLETED HAS BEEN REFERRED TO THE [place] PURCHASED HOME CARE PROGRAM FOR DRYING MACHINE TENDER SERVICES. LETTER EXPLAINING THE GUIDELINES OF THIS PROGRAM HAS BEEN MAILED TO / FAMILY /es/ PARMINDER CANSECO Signed: 04/08/2024 12:57 PARMINDER CANSECO [place] [facility]
--- OUTSIDE RECORDS SUMMARY | 2024-08-07 12:22 | XMS_ITS | Encounter Summary ---
Author Name [facility] [place] Address [address] [place] [address] Care Team Providers Care Sewing Machine Operator Plastic Zipper Name Role Phone LENORA DEJESUS Primary Care [...] Jul 31, 2014 MEDICAR E SUPPLEM E [id number] [phone] FR GAMALIEL KAY PATIENT [facility] MEDICARE SUPPLEMEN EVANGELISTA MEDIC ARE SUPP Jul 31, 2014 SUPP [id number] [phone] FR GAMALIEL KAY PATIENT MEDICARE (WNR) MEDICARE (M) PART A Jan 29, 2004 PART A [id number] [phone] FR GAMALIEL KAY PATIENT MEDICARE (WNR) MEDICARE (M) PART B Jan 29, 2004 PART B [id number] [phone] FR GAMALIEL KAY PATIENT [facility] (WNR) MEDICARE ADVANTAGE [facility] ([facility]) Jul 31, 2023 [id number] [phone] FR GAMALIEL KAY PATIENT [facility] (WNR) MEDICARE ADVANTAGE [facility] (WNR) Jul 31, 2023 [id number] [phone] FR GAMALIEL KAY PATIENT Selected Encounter This section includes the information on record at [place] for the Encounter. Date/Time Encounter Type Encounter Description Reason Pro vider Source Mar 13, 2024 12:00 AM Outpatient Encounter EVENT (HISTORICAL) [...] 27, 2024 01:00 PM [facility] Apr 04, 2024 08:00 AM AMBULATORY - MEDICINE [place] [facility] May 15, 2024 02:00 PM AMBULATORY [facility] MEDICINE [facility] ([facility]) Jun 12, 2024 11:00 AM [facility]ICINE [facility] ([facility]) Jun 19, 2024 01:00 PM AMBULATORY - MEDICINE [place] [facility] Jun 25, 2024 02:30 PM AMBULATORY - MEDICINE [place] [facility] Jul 30, 2024 03:30 PM [facility] Aug 07, 2024 01:00 PM AMBULATORY - MEDICINE [place] [facility] Aug 14, 2024 10:00 AM AMBULATORY - NONE [place] [facility] [place] [facility] Sep 02, 2024 03:30 PM AMBULATORY - MEDICINE [place] [facility] Lab Results: +/- 30 days of [...] Range Comment Mar 20, 2024 11:40 AM [facility] ([facility]) MICROALBUMIN CREATININE RATIO PANEL Specimen Type: URINE No comment entered. Ordering Provider: FLYNN DEJESUS Report Released Date/Time: Mar 11, 2024 11:36 AM Reporting Lab: [address] [address] Performing Lab: [address] [address] MICROALBUMIN/C REATININE RATIO 13.3 mg/g 0-29.9 MICROALBUMIN,Q UANTITATIVE 2.0 mg/dL RR UNAVAIL CREATININE URINE 150.03 mg/dL Mar 20, 2024 11:40 AM [facility] ([facility]) URINALYSIS Specimen Type: URINE Comment: If Glucose = >500 and Ketones are positive, please alert the Physician. Ordering Provider: FLYNN DEJESUS Report Released Date/Time: Mar 11, 2024 11:36 AM Reporting Lab: [address] [address] Performing Lab: [address] [address] UA COLOR Yellow Yellow UA APPEARANCE Clear Clear UA GLUCOSE Normal mg/dL Negative UA KETONES NEGATIVE mg/dL Negative UA BLOOD NEGATIVE mg/dL Negative UA PROTEIN 10 mg/dL Negative UA NITRITE NEGATIVE mg/dL Negative UA BILIRUBIN NEGATIVE mg/dL Negative UA SPECIFIC GRAVITY 1.023 H 1.016-1.02 2 UA pH 6.0 5.0-9.0 UA UROBILINOGEN Normal mg/dL <2.0 UA LEUKOCYTE SMALL Negative Mar 20, 2024 11:40 AM [facility] ([facility]) MICROSCOPIC AUTOMATED, URINE Specimen Type: URINE Comment: If Glucose = >500 and Ketones are positive, please alert the Physician. Ordering Provider: FLYNN DEJESUS Report Released Date/Time: Mar 11, 2024 11:36 AM Reporting Lab: [address] [address] Performing Lab: [address] [address] UA WBC 6-10 /[HPF] H 0-5 UA MUCUS FEW /[LPF] Trace UA RBC 0-2 /[HPF] 0-3 UA SQUAMOUS EPITH FEW /[HPF] Mar 20, 2024 11:28 AM [facility] ([facility]) VITAMIN B12 Specimen Type: SERUM No comment entered. Ordering Provider: FLYNN DEJESUS Report Released Date/Time: Mar 11, 2024 11:36 AM Reporting Lab: [facility] [address] [address] Performing Lab: [facility] [address] [address] VITAMIN B12 386 pg/mL 200-900 Mar 20, 2024 11:28 AM [facility] ([facility]) VITAMIN D (25-[place]) Specimen Type: SERUM No comment entered. Ordering Provider: FLYNN DEJESUS Report Released Date/Time: Mar 11, 2024 11:36 AM Reporting Lab: [facility] [address] [address] Performing Lab: [facility] [address] [address] VITAMIN D (25-[place]) 29 ng/mL 20-50 Mar 20, 2024 11:28 AM [facility] ([facility]) TSH Specimen Type: SERUM No comment entered. Ordering Provider: FLYNN DEJESUS Report Released Date/Time: Mar 11, 2024 11:36 AM Reporting Lab: [facility] [address] [address] Performing Lab: [facility] [address] TSH 1.56 u[IU]/mL 0.35-5.00 Mar 20, 2024 11:28 AM [facility] ([facility]) LIPID PANEL, NON FASTING Specimen Type: SERUM No comment entered. Ordering Provider: FLYNN DEJESUS Report Released Date/Time: Mar 11, 2024 11:36 AM Reporting Lab: [address] [address] Performing Lab: [facility] [address] [address] CHOLESTEROL 162 mg/dL TRIGLYCERIDE 115 mg/dL 0-150 LDL calculated 99 mg/dL 0-129 CHOL/HDL 4.1 HDL CHOLESTEROL 40 mg/dL 40-60 Mar 20, 2024 11:28 AM [facility] ([facility]) LIVER FUNCTION Specimen Type: SERUM No comment entered. Ordering Provider: FLYNN DEJESUS Report Released Date/Time: Mar 11, 2024 11:36 AM Reporting Lab: [address] [address] Performing Lab: [address] [address] PROTEIN,TOTAL 6.9 g/dL 6.0-8.3 ALBUMIN 3.5 g/dL 3.5-5.0 ALKALINE PHOSPHATASE 79 U/L 40-150 AST 14 U/L 5-34 ALT <6 U/L BILIRUBIN, TOTAL 0.5 mg/dL 0.2-1.2 Mar 20, 2024 11:28 AM [facility] ([facility]) CBC AND DIFF (AUTO) Specimen Type: BLOOD No comment entered. Ordering Provider: FLYNN DEJESUS Report Released Date/Time: Mar 11, 2024 11:36 AM Reporting Lab: [address] [address] Performing Lab: [address] [address] WBC 6.97 10*3/uL 4.50-11.00 RBC 5.38 10*6/uL [...] 10*3/uL 0.00-0.00 Mar 20, 2024 11:27 AM [facility] HEMOGLOBIN A1C PANEL Specimen Type: BLOOD [...] Jan 30, 2024 01:20 PM Reporting Lab: [facility] [address] [facility] [address] Performing Lab: [address] [address] HEMOGLOBIN A1C 6.0 H 4.0-5.6 Mar 20, 2024 11:27 AM [facility] BASIC METABOLIC PANEL (non-fasting) Specimen Type: SERUM No comment entered. Ordering Provider: LORY CARPENTER Report Released Date/Time: Jan 30, 2024 01:20 PM Reporting Lab: [facility] [address] [facility] [address] Performing Lab: [address] [address] UREA NITROGEN 21 mg/dL 7-25 GLUCOSE 175 mg/dL H 65-100 SODIUM 139 mmol/L 135-145 POTASSIUM 4.0 mmol/L 3.5-5.0 CHLORIDE 104 mmol/L 100-110 CO2 25 meq/L 20-30 CREATININE, Serum 1.11 mg/dL 0.50-1.40 eGFR(CKD-EPI 2020) 67 mL/min >60 Encounter Notes: All associated encounter notes This section contains the clinical notes associated to the Encounter. Date/Time Encounter Note(s) Provider Source Mar 13, 2024 12:00 AM NONVA CONSULT: LOCAL TITLE: COMMUNITY CARE-CONSULT RESULT NOTE STANDARD TITLE: NONVA CONSULT DATE OF NOTE: MAR 13, 2024 ENTRY DATE: APR 04, 2024@14:27:53 AUTHOR: MAYANK MCCORMACK COSIGNER: URGENCY: STATUS: COMPLETED VistA Imaging - Scanned Document SCANNED DOCUMENT SIGNATURE NOT REQUIRED Electronically Filed: 04/04/2024 by: DONTE MCCORMACK Record Changer DONTE MCCORMACK [facility]
--- OUTSIDE RECORDS SUMMARY | 2024-08-07 12:22 | XMS_ITS ---
Author Name [facility] [place] Organization [facility] [place] Address [address] [place] [address] Care Team Providers Care Torch Cutter Name Role Phone LENORA DEJESUS Primary Care [...] Jul 31, 2014 MEDICAR E SUPPLEM E [id number] [phone] FR GAMALIEL KAY PATIENT [facility] MEDICARE SUPPLEMEN EVANGELISTA MEDIC ARE SUPP Jul 31, 2014 SUPP [id number] [phone] FR GAMALIEL KAY PATIENT MEDICARE (WNR) MEDICARE (M) PART A Jan 29, 2004 PART A [id number] [phone] FR GAMALIEL KAY PATIENT MEDICARE (WNR) MEDICARE (M) PART B Jan 29, 2004 PART B [id number] [phone] FR GAMALIEL KAY PATIENT [facility] (WNR) MEDICARE ADVANTAGE [facility] ([facility]) Jul 31, 2023 [id number] [phone] FR GAMALIEL KAY PATIENT [facility] (WNR) MEDICARE ADVANTAGE [facility] (WNR) Jul 31, 2023 [id number] [phone] FR GAMALIEL KAY PATIENT Selected Encounter This section includes the information on record at [place] for the Encounter. Date/Time Encounter Type Encounter Description Reason Pro vider Source Mar 11, 2024 12:00 AM Outpatient Encounter EVENT [...] 27, 2024 01:00 PM [facility] Apr 04, 2024 08:00 AM [place]IC[place] [facility] May 15, 2024 02:00 PM AMBULATORY - MEDICINE [facility] ([facility]) Jun 12, 2024 11:00 AM AMBULATORY - MEDICINE [facility] ([facility]) Jun 19, 2024 01:00 PM AM[place]ORY [place]ICINE [place] [facility] Jun 25, 2024 02:30 PM AMB[place]ICINE [place] [facility] Jul 30, 2024 03:30 PM [facility]) Aug 07, 2024 01:00 PM AMBULATORY - [place]ICINE [place] [facility] Aug 14, 2024 10:00 AM AMBULATORY - NONE [place] [facility] [facility] Sep 02, 2024 03:30 PM AMBULATORY - [place]ICINE [place] [facility] Lab Results: +/- 30 days [...] Range Comment Mar 20, 2024 11:40 AM [facility] ([facility]) MICROALBUMIN CREATININE RATIO PANEL Specimen Type: URINE No comment entered. Ordering Provider: FLYNN DEJESUS Report Released Date/Time: Mar 11, 2024 11:36 AM Reporting Lab: [address] [address] Performing Lab: [address] [address] MICROALBUMIN/C REATININE RATIO 13.3 mg/g 0-29.9 MICROALBUMIN,Q UANTITATIVE 2.0 mg/dL RR UNAVAIL CREATININE URINE 150.03 mg/dL Mar 20, 2024 11:40 AM [facility] ([facility]) URINALYSIS Specimen Type: URINE Comment: If Glucose = >500 and Ketones are positive, please alert the Physician. Ordering Provider: FLYNN DEJESUS Report Released Date/Time: Mar 11, 2024 11:36 AM Reporting Lab: [address] [address] Performing Lab: [address] [address] UA COLOR Yellow Yellow UA APPEARANCE Clear Clear UA GLUCOSE Normal mg/dL Negative UA KETONES NEGATIVE mg/dL Negative UA BLOOD NEGATIVE mg/dL Negative UA PROTEIN 10 mg/dL Negative UA NITRITE NEGATIVE mg/dL Negative UA BILIRUBIN NEGATIVE mg/dL Negative UA SPECIFIC GRAVITY 1.023 H 1.016-1.02 2 UA pH 6.0 5.0-9.0 UA UROBILINOGEN Normal mg/dL <2.0 UA LEUKOCYTE SMALL Negative Mar 20, 2024 11:40 AM [facility] ([facility]) MICROSCOPIC AUTOMATED, URINE Specimen Type: URINE Comment: If Glucose = >500 and Ketones are positive, please alert the Physician. Ordering Provider: FLYNN DEJESUS Report Released Date/Time: Mar 11, 2024 11:36 AM Reporting Lab: [address] [address] Performing Lab: [address] [address] UA WBC 6-10 /[HPF] H 0-5 UA MUCUS FEW /[LPF] Trace UA RBC 0-2 /[HPF] 0-3 UA SQUAMOUS EPITH FEW /[HPF] Mar 20, 2024 11:28 AM [facility] ([facility]) VITAMIN B12 Specimen Type: SERUM No comment entered. Ordering Provider: FLYNN DEJESUS Report Released Date/Time: Mar 11, 2024 11:36 AM Reporting Lab: [facility] [address] [facility] [address] Performing Lab: [facility]ITALUSE[address] [address] VITAMIN B12 386 pg/mL 200-900 Mar 20, 2024 11:28 AM [facility] ([facility]) VITAMIN D (25-[place]) Specimen Type: SERUM No comment entered. Ordering Provider: FLYNN DEJESUS Report Released Date/Time: Mar 11, 2024 11:36 AM Reporting Lab: [facility]ERN [address] [address] Performing Lab: [facility] [address] VITAMIN D (25-[place]) 29 ng/mL 20-50 Mar 20, 2024 11:28 AM [facility] ([facility]) TSH Specimen Type: SERUM No comment entered. Ordering Provider: FLYNN DEJESUS Report Released Date/Time: Mar 11, 2024 11:36 AM Reporting Lab: [facility] [address] Performing Lab: [facility]OSPITALRL TRN [facility] HOSPITALUSETS [address] [address] TSH 1.56 u[IU]/mL 0.35-5.00 Mar 20, 2024 11:28 AM [facility] ([facility]) LIVER FUNCTION Specimen Type: SERUM No comment entered. Ordering Provider: FLYNN DEJESUS Report Released Date/Time: Mar 11, 2024 11:36 AM Reporting Lab: [facility]ERN [address] [address] Performing Lab: [facility]ERN [facility] [address] PROTEIN,TOTAL 6.9 g/dL 6.0-8.3 ALBUMIN 3.5 g/dL 3.5-5.0 ALKALINE PHOSPHATASE 79 U/L 40-150 AST 14 U/L 5-34 ALT <6 U/L BILIRUBIN, TOTAL 0.5 mg/dL 0.2-1.2 Mar 20, 2024 11:28 AM [facility] ([facility]) LIPID PANEL, NON FASTING Specimen Type: SERUM No comment entered. Ordering Provider: FLYNN DEJESUS Report Released Date/Time: Mar 11, 2024 11:36 AM Reporting Lab: [address] [id number] Performing Lab: [place] [id number] CHOLESTEROL 162 mg/dL TRIGLYCERIDE 115 mg/dL 0-150 LDL calculated 99 mg/dL 0-129 CHOL/HDL 4.1 HDL CHOLESTEROL 40 mg/dL 40-60 Mar 20, 2024 11:28 AM [facility] ([facility]) CBC AND DIFF (AUTO) Specimen Type: BLOOD No comment entered. Ordering Provider: FLYNN DEJESUS Report Released Date/Time: Mar 11, 2024 11:36 AM Reporting Lab: [address] [phone] Performing Lab: [place] [phone] WBC 6.97 10*3/uL 4.50-11.00 RBC 5.38 10*6/uL [...] 10*3/uL 0.00-0.00 Mar 20, 2024 11:27 AM [facility] HEMOGLOBIN A1C PANEL Specimen Type: BLOOD [...] Jan 30, 2024 01:20 PM Reporting Lab: [facility] [address] [facility] [phone] Performing Lab: [address] [phone] HEMOGLOBIN A1C 6.0 H 4.0-5.6 Mar 20, 2024 11:27 AM [facility] BASIC METABOLIC PANEL (non-fasting) Specimen Type: SERUM No comment entered. Ordering Provider: LORY CARPENTER Report Released Date/Time: Jan 30, 2024 01:20 PM Reporting Lab: [facility] [address] [facility] [phone] Performing Lab: [address] [phone] UREA NITROGEN 21 mg/dL 7-25 GLUCOSE 175 mg/dL H 65-100 SODIUM 139 mmol/L 135-145 POTASSIUM 4.0 mmol/L 3.5-5.0 CHLORIDE 104 mmol/L 100-110 CO2 25 meq/L 20-30 CREATININE, Serum 1.11 mg/dL 0.50-1.40 eGFR(CKD-EPI 2020) 67 mL/min >60 Encounter Notes: All associated encounter notes This section contains the clinical notes associated to the Encounter. Date/Time Encounter Note(s) Provider Source Mar 11, 2024 12:00 AM [facility] NOTE: LOCAL TITLE: NON-VA OUTPATIENT NOTES STANDARD TITLE: NONVA NOTE DATE OF NOTE: MAR 11, 2024 ENTRY DATE: MAR 27, 2024@14:38:20 AUTHOR: AMRIT FIGUEROA MA EXP COSIGNER: URGENCY: STATUS: COMPLETED VistA Imaging - Scanned Document SCANNED DOCUMENT SIGNATURE NOT REQUIRED Electronically Filed: 03/27/2024 by: AMRIT FIGUEROA OSTEOPATHIC PHYSICIAN AMRIT FIGUEROA [facility]
--- OUTSIDE RECORDS SUMMARY | 2024-08-07 12:22 | XMS_ITS ---
Author Name [facility] [place] Organization [facility] [place] Address [address] [place] [address] Care Team Providers Care Keg Raiser Name Role Phone LENORA DEJESUS Primary Care [...] Jul 31, 2014 MEDICAR E SUPPLEM E [id number] [phone] FR GAMALIEL KAY PATIENT [facility] MEDICARE SUPPLEMEN [facility] MEDIC ARE SUPP Jul 31, 2014 SUPP [id number] [phone] FR GAMALIEL KAY PATIENT MEDICARE (WNR) MEDICARE (M) PART A Jan 29, 2004 PART A [id number] [phone] FR GAMALIEL KAY PATIENT MEDICARE (WNR) MEDICARE (M) PART B Jan 29, 2004 PART B [id number] [phone] FR GAMALIEL KAY PATIENT [facility] (WNR) MEDICARE ADVANTAGE [facility] ([facility]) Jul 31, 2023 [id number] [phone] FR GAMALIEL KAY PATIENT [facility] MCR (WNR) MEDICARE ADVANTAGE MCR (WNR) Jul 31, 2023 [id number] [phone] FR GAMALIEL KAY PATIENT Selected Encounter This section includes the information on record at [place] for the Encounter. Date/Time Encounter Type Encounter Description Reason Pro vider Source Feb 23, 2024 12:00 AM Outpatient Encounter EVENT (HISTORICAL) [...] PM AMBULATORY - MEDICINE [facility] ([facility] Apr 04, 2024 08:00 AM AM[place]ATORY - [place]ICINE [place] [facility] [place] [facility] May 15, 2024 02:00 PM AMBULATORY - MEDICINE [facility] ([facility]) Jun 12, 2024 11:00 AM AMBULATORY - MEDICINE [facility] ([facility]) Jun 19, 2024 01:00 PM AMBULATORY - MEDICINE [place] [facility] [place] [facility] Jun 25, 2024 02:30 PM AMBULATORY - MEDICINE [place] [facility] [place] [facility] Jul 30, 2024 03:30 PM [facility] Aug 07, 2024 01:00 PM AMBULATORY - MEDICINE [place] [facility] [place] [facility] Aug 14, 2024 10:00 AM AMBULATORY - NONE [place] [facility] [place] [facility] Lab Results: +/- 30 days of [...] Mar 11, 2024 11:36 AM Reporting Lab: [address] [address] Performing Lab: [address] [address] MICROALBUMIN/C REATININE RATIO 13.3 mg/g 0-29.9 MICROALBUMIN,Q UANTITATIVE 2.0 mg/dL RR UNAVAIL CREATININE URINE 150.03 mg/dL Mar 20, 2024 11:40 AM [facility] ([facility]) URINALYSIS Specimen Type: URINE Comment: If Glucose = >500 and Ketones are positive, please alert the Physician. Ordering Provider: FLYNN DEJESUS Report Released Date/Time: Mar 11, 2024 11:36 AM Reporting Lab: [address] [address] Performing Lab: [address] [address] UA COLOR Yellow Yellow UA APPEARANCE Clear Clear UA GLUCOSE Normal mg/dL Negative UA KETONES NEGATIVE mg/dL Negative UA BLOOD NEGATIVE mg/dL Negative UA PROTEIN 10 mg/dL Negative UA NITRITE NEGATIVE mg/dL Negative UA BILIRUBIN NEGATIVE mg/dL Negative UA SPECIFIC GRAVITY 1.023 H 1.016-1.02 2 UA pH 6.0 5.0-9.0 UA UROBILINOGEN Normal mg/dL <2.0 UA LEUKOCYTE SMALL Negative Mar 20, 2024 11:40 AM [facility] ([facility]) MICROSCOPIC AUTOMATED, URINE Specimen Type: URINE Comment: If Glucose = >500 and Ketones are positive, please alert the Physician. Ordering Provider: FLYNN DEJESUS Report Released Date/Time: Mar 11, 2024 11:36 AM Reporting Lab: [address] [address] Performing Lab: [address] [address] UA WBC 6-10 /[HPF] H 0-5 UA MUCUS FEW /[LPF] Trace UA RBC 0-2 /[HPF] 0-3 UA SQUAMOUS EPITH FEW /[HPF] Mar 20, 2024 11:28 AM [facility] ([facility]) VITAMIN D (25-OH) Specimen Type: SERUM No comment entered. Ordering Provider: FLYNN DEJESUS Report Released Date/Time: Mar 11, 2024 11:36 AM Reporting [facility]: [facility] [address] [address] Performing Lab: [facility] [address] [address] VITAMIN D (25-OH) 29 ng/mL 20-50 Mar 20, 2024 11:28 AM [facility] ([facility]) VITAMIN B12 Specimen Type: SERUM No comment entered. Ordering Provider: FLYNN DEJESUS Report Released Date/Time: Mar 11, 2024 11:36 AM Reporting Lab: [address] [address] Performing Lab: [facility] [address] [address] VITAMIN B12 386 pg/mL 200-900 Mar 20, 2024 11:28 AM [facility] ([facility]) TSH Specimen Type: SERUM No comment entered. Ordering Provider: FLYNN DEJESUS Report Released Date/Time: Mar 11, 2024 11:36 AM Reporting Lab: [facility] [address] [address] Performing Lab: [facility] [address] [address] TSH 1.56 u[IU]/mL 0.35-5.00 Mar 20, 2024 11:28 AM [facility] ([facility]) LIVER FUNCTION Specimen Type: SERUM No comment entered. Ordering Provider: FLYNN DEJESUS Report Released Date/Time: Mar 11, 2024 11:36 AM Reporting Lab: [facility] [address] [address] Performing Lab: [address] [address] PROTEIN,TOTAL 6.9 g/dL 6.0-8.3 ALBUMIN 3.5 g/dL 3.5-5.0 ALKALINE PHOSPHATASE 79 U/L 40-150 AST 14 U/L 5-34 ALT <6 U/L BILIRUBIN, TOTAL 0.5 mg/dL 0.2-1.2 Mar 20, 2024 11:28 AM [facility] ([facility]) LIPID PANEL, NON FASTING Specimen Type: SERUM No comment entered. Ordering Provider: FLYNN DEJESUS Report Released Date/Time: Mar 11, 2024 11:36 AM Reporting Lab: [address] [address] Performing Lab: [address] [address] CHOLESTEROL 162 mg/dL TRIGLYCERIDE 115 mg/dL 0-150 LDL calculated 99 mg/dL 0-129 CHOL/HDL 4.1 HDL CHOLESTEROL 40 mg/dL 40-60 Mar 20, 2024 11:28 AM [facility] ([facility]) CBC AND DIFF (AUTO) Specimen Type: BLOOD No comment entered. Ordering Provider: FLYNN DEJESUS Report Released Date/Time: Mar 11, 2024 11:36 AM Reporting Lab: [address] [address] Performing Lab: [address] [address] WBC 6.97 10*3/uL 4.50-11.00 RBC 5.38 10*6/uL [...] 10*3/uL 0.00-0.00 Mar 20, 2024 11:27 AM [facility] HEMOGLOBIN A1C PANEL Specimen Type: BLOOD [...] Jan 30, 2024 01:20 PM Reporting Lab: [address] [address] Performing Lab: [address] [address] HEMOGLOBIN A1C 6.0 H 4.0-5.6 Mar 20, 2024 11:27 AM [facility] BASIC METABOLIC PANEL (non-fasting) Specimen Type: SERUM No comment entered. Ordering Provider: LORY CARPENTER Report Released Date/Time: Jan 30, 2024 01:20 PM Reporting Lab: [address] [address] Performing Lab: [address] [address] UREA NITROGEN 21 mg/dL 7-25 GLUCOSE 175 mg/dL H 65-100 SODIUM 139 mmol/L 135-145 POTASSIUM 4.0 mmol/L 3.5-5.0 CHLORIDE 104 mmol/L 100-110 CO2 25 meq/L 20-30 CREATININE, Serum 1.11 mg/dL 0.50-1.40 eGFR(CKD-EPI 2020) 67 mL/min >60 Encounter Notes: All associated encounter notes This section contains the clinical notes associated to the Encounter. Date/Time Encounter Note(s) Provider Source Feb 23, 2024 12:00 AM [facility] NOTE: LOCAL TITLE[facility] STANDARD TITLE: [facility] NOTE DATE OF NOTE: FEB 23, 2024 ENTRY DATE: MAR 27, 2024@08:58:10 AUTHOR: MAYANK MCCORMACK COSIGNER: URGENCY: STATUS: COMPLETED VistA Imaging - Scanned Document SCANNED DOCUMENT SIGNATURE NOT REQUIRED Electronically Filed: 03/27/2024 by: DONTE MCCOMRACK Retail Training Manager DONTE MCCORMACK [facility]
--- OUTSIDE RECORDS SUMMARY | 2024-08-07 12:23 | XMS_ITS ---
Author Name [facility] [place] [facility] [place] [facility] [place] Address [address] [place] [address] Care Team Providers Care Tumbling Instructor Name Role Phone LENORA DEJESUS Primary [...] Jul 31, 2014 MEDICAR E SUPPLEM E [id number] [phone] FR GAMALIEL KAY PATIENT [facility] MEDICARE SUPPLEMEN [place] MEDIC ARE SUPP Jul 31, 2014 SUPP [id number] [phone] FR GAMALIEL KAY PATIENT MEDICARE (WNR) MEDICARE (M) PART A Jan 29, 2004 PART A [id number] [phone] FR GAMALIEL KAY PATIENT MEDICARE (WNR) MEDICARE (M) PART B Jan 29, 2004 PART B [id number] [phone] FR GAMALIEL KAY PATIENT [facility] (WNR) MEDICARE ADVANTAGE [facility] ([facility]) Jul 31, 2023 [id number] [phone] FR GAMALIEL KAY PATIENT [facility] MCR (WNR) MEDICARE ADVANTAGE MCR (WNR) Jul 31, 2023 [id number] [phone] FR GAMALIEL KAY PATIENT Selected Encounter This section includes the information on record at [place] for the Encounter. Date/Time Encounter Type Encounter Description Reason Pro vider Source Apr 08, 2024 12:00 AM Outpatient Encounter EVENT (HISTORICAL) IHE Encounter Template Text not used by [place] Plan of Treatment: Future Appointments (+ 6 months) and Future Tests (+/- 45 days) The Plan of Treatment section includes future care activities for the patient from all [place] treatmentfacilities. This section includes future appointments and future orders which are active, pending or scheduled. Future Appointments This section includes appointments that were scheduled to occur 6 months from the date of the Encounter, up to a maximum of 20 appointments. The data comes from all [place] treatment facilities. Appointment Date/Time Appointment Type Appointme nt Facility Name May 15, 2024 02:00 PM AMBULATORY - MEDICINE [facility] ([facility]) Jun 12, 2024 11:00 AM AMBULATORY - MEDICINE [facility] ([facility]) Jun 19, 2024 01:00 PM AMBULATORY - MEDICINE [place] [place] [facility] Jun 25, 2024 02:30 PM AMBULATORY - MEDICINE [place] [facility] [place] [place] [facility] Jul 30, 2024 03:30 PM AMBULATORY - MEDICINE [facility] ([facility]) Aug 07, 2024 01:00 PM AMBULATORY - MEDICINE [place] [facility] [place] [facility] Aug 14, 2024 10:00 AM AMBULATORY - NONE [place] [facility] [place] [facility] Sep 02, 2024 03:30 PM AMBULATORY - MEDICINE [place] [facility] [place] [facility] Sep 18, 2024 11:00 AM AMBULATORY - MEDICINE [facility] ([facility]) Lab Results: +/- 30 days of the encounter This section includes the Chemistry and Hematology Lab Results on record with [place] for the patient. Radiology Reports and Pathology Reports are provided separately, in subsequent sections. Lab Results This section contains the Chemistry/Hematology Results that were resulted 30 days before or 30 daysafter the date of the Encounter. Date/Time Source Result Type Result - Unit Interpretation Reference Range Comment Mar 20, 2024 11:40 AM [facility] ([facility]) MICROALBUMIN CREATININE RATIO PANEL Specimen Type: URINE No comment entered. Ordering Provider: FLYNN DEJESUS Report Released Date/Time: Mar 11, 2024 11:36 AM Reporting Lab: [address] [address] Performing Lab: [address] [address] MICROALBUMIN/C REATININE RATIO 13.3 mg/g 0-29.9 MICROALBUMIN,Q UANTITATIVE 2.0 mg/dL RR UNAVAIL CREATININE URINE 150.03 mg/dL Mar 20, 2024 11:40 AM [facility] ([facility]) URINALYSIS Specimen Type: URINE Comment: If Glucose = >500 and Ketones are positive, please alert the Physician. Ordering Provider: FLYNN DEJESUS Report Released Date/Time: Mar 11, 2024 11:36 AM Reporting Lab: [address] [address] Performing Lab: [address] [address] UA COLOR Yellow Yellow UA APPEARANCE Clear Clear UA GLUCOSE Normal mg/dL Negative UA KETONES NEGATIVE mg/dL Negative UA BLOOD NEGATIVE mg/dL Negative UA PROTEIN 10 mg/dL Negative UA NITRITE NEGATIVE mg/dL Negative UA BILIRUBIN NEGATIVE mg/dL Negative UA SPECIFIC GRAVITY 1.023 H 1.016-1.02 2 UA pH 6.0 5.0-9.0 UA UROBILINOGEN Normal mg/dL <2.0 UA LEUKOCYTE SMALL Negative Mar 20, 2024 11:40 AM [facility] ([facility]) MICROSCOPIC AUTOMATED, URINE Specimen Type: URINE Comment: If Glucose = >500 and Ketones are positive, please alert the Physician. Ordering Provider: FLYNN DEJESUS Report Released Date/Time: Mar 11, 2024 11:36 AM Reporting Lab: [address] [address] Performing Lab: [address] [address] UA WBC 6-10 /[HPF] H 0-5 UA MUCUS FEW /[LPF] Trace UA RBC 0-2 /[HPF] 0-3 UA SQUAMOUS EPITH FEW /[HPF] Mar 20, 2024 11:28 AM [facility] ([facility]) VITAMIN D (25-OH) Specimen Type: SERUM No comment entered. Ordering Provider: FLYNN DEJESUS Report Released Date/Time: Mar 11, 2024 11:36 AM Reporting [facility] [address] [address] Performing Lab: [facility] [address] [address] VITAMIN D (25-OH) 29 ng/mL 20-50 Mar 20, 2024 11:28 AM [facility] ([facility]) VITAMIN B12 Specimen Type: SERUM No comment entered. Ordering Provider: FLYNN DEJESUS Report Released Date/Time: Mar 11, 2024 11:36 AM Reporting Lab: [address] [address] Performing Lab: [address] [address] VITAMIN B12 386 pg/mL 200-900 Mar 20, 2024 11:28 AM [facility] ([facility]) TSH Specimen Type: SERUM No comment entered. Ordering Provider: FLYNN DEJESUS Report Released Date/Time: Mar 11, 2024 11:36 AM Reporting Lab: [address] [address] [facility]forming Lab: [facility] [address] [address] TSH 1.56 u[IU]/mL 0.35-5.00 Mar 20, 2024 11:28 AM [facility] ([facility]) LIVER FUNCTION Specimen Type: SERUM No comment entered. Ordering Provider: FLYNN DEJESUS Report Released Date/Time: Mar 11, 2024 11:36 AM Reporting Lab: [facility] [address] [address] Performing Lab: [address] [address] PROTEIN,TOTAL 6.9 g/dL 6.0-8.3 ALBUMIN 3.5 g/dL 3.5-5.0 ALKALINE PHOSPHATASE 79 U/L 40-150 AST 14 U/L 5-34 ALT <6 U/L BILIRUBIN, TOTAL 0.5 mg/dL 0.2-1.2 Mar 20, 2024 11:28 AM [facility] ([facility]) LIPID PANEL, NON FASTING Specimen Type: SERUM No comment entered. Ordering Provider: FLYNN DEJESUS Report Released Date/Time: Mar 11, 2024 11:36 AM Reporting Lab: [address] [address] Performing Lab: [address] [address] CHOLESTEROL 162 mg/dL TRIGLYCERIDE 115 mg/dL 0-150 LDL calculated 99 mg/dL 0-129 CHOL/HDL 4.1 HDL CHOLESTEROL 40 mg/dL 40-60 Mar 20, 2024 11:28 AM [facility] ([facility]) CBC AND DIFF (AUTO) Specimen Type: BLOOD No comment entered. Ordering Provider: FLYNN DEJESUS Report Released Date/Time: Mar 11, 2024 11:36 AM Reporting Lab: [address] [address] Performing Lab: [address] [address] WBC 6.97 10*3/uL 4.50-11.00 RBC 5.38 10*6/uL [...] 10*3/uL 0.00-0.00 Mar 20, 2024 11:27 AM [facility] HEMOGLOBIN A1C PANEL Specimen Type: BLOOD [...] Jan 30, 2024 01:20 PM Reporting Lab: [address] [address] Performing Lab: [address] [address] HEMOGLOBIN A1C 6.0 H 4.0-5.6 Mar 20, 2024 11:27 AM [facility] BASIC METABOLIC PANEL (non-fasting) Specimen Type: SERUM No comment entered. Ordering Provider: LORY CARPENTER Report Released Date/Time: Jan 30, 2024 01:20 PM Reporting Lab: [address] [address] Performing Lab: [address] [address] UREA NITROGEN 21 mg/dL 7-25 GLUCOSE 175 mg/dL H 65-100 SODIUM 139 mmol/L 135-145 POTASSIUM 4.0 mmol/L 3.5-5.0 CHLORIDE 104 mmol/L 100-110 CO2 25 meq/L 20-30 CREATININE, Serum 1.11 mg/dL 0.50-1.40 eGFR(CKD-EPI 2020) 67 mL/min >60 Encounter Notes: All associated encounter notes This section contains the clinical notes associated to the Encounter. Date/Time Encounter Note(s) Provider Source Apr 08, 2024 12:00 AM NON[facility] NOTE: LOCAL TITLE: [facility] STANDARD TITLE: NONVA NOTE DATE OF NOTE: APR 08, 2024 ENTRY DATE: MAY 06, 2024@14:04:49 AUTHOR: MAYANK MCCORMACK COSIGNER: URGENCY: STATUS: COMPLETED VistA Imaging - Scanned Document SCANNED DOCUMENT SIGNATURE NOT REQUIRED Electronically Filed: 05/06/2024 by: DONTE MCCORMACK Audio Engineer DONTE MCCORMACK [facility]
--- OUTSIDE RECORDS SUMMARY | 2024-08-07 12:23 | XMS_ITS | Encounter Summary ---
Author Name [facility] [place] Address [address] [place] [id number] Care Team Providers Care Patient Admitting Representative Name Role Phone LENORA DEJESUS Primary Care [...] Jul 31, 2014 MEDICAR E SUPPLEM E [id number] [phone] FR GAMALIEL KAY PATIENT [facility] MEDICARE SUPPLEMEN EVANGELISTA MEDIC ARE SUPP Jul 31, 2014 SUPP [id number] [phone] FR GAMALIEL KAY PATIENT MEDICARE (WNR) MEDICARE (M) PART A Jan 29, 2004 PART A [id number] [phone] FR GAMALIEL KAY PATIENT MEDICARE (WNR) MEDICARE (M) PART B Jan 29, 2004 PART B [id number] [phone] FR GAMALIEL KAY PATIENT [facility] (WNR) MEDICARE ADVANTAGE [facility] ([facility]) Jul 31, 2023 [id number] [phone] FR GAMALIEL KAY PATIENT [facility] (WNR) MEDICARE ADVANTAGE [facility] (WNR) Jul 31, 2023 [id number] [phone] FR GAMALIEL KAY PATIENT Selected Encounter This section includes the information on record at [place] for the Encounter. Date/Time Encounter Type Encounter Description Reason Provider Source May 15, 2024 02:00 PM OFFICE O/P EST MOD 30 MIN PRIMARY CARE/MEDICINE ICD-10-CM I48.91 Unspecified atrial fibrillation ANJELICALEANDRADAVID Hicks Mitzi Encounter Template Text not used by [place] Assessments - Encounter Diagnoses This section includes the primary and secondary diagnoses documented for the Encounter. 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.] Date/Time Appointment Type Appointme nt Facility Name Jun 12, 2024 11:00 AM AMBULATORY - MEDICINE [place] ([facility]) Jun 19, 2024 01:00 PM [facility] [place] [facility] Jun 25, 2024 02:30 PM [facility]ICINE [facility] [place] [facility] Jul 30, 2024 03:30 PM AMBULATORY - MEDICINE [facility] ([facility]) Aug 07, 2024 01:00 PM [facility]BULATORY - MEDICINE [facility] [place] [facility] Aug 14, 2024 10:00 AM AMBULATORY - NONE [facility] [place] [facility] Sep 02, 2024 03:30 PM [facility]ULATORY [facility] MEDICINE [facility] [place] [facility] Sep 18, 2024 11:00 AM AMBULATORY - MEDICINE [facility] ([facility]) Oct 07, 2024 02:30 PM AM[place]ORY [place]ICINE [place] [facility] [place] [facility] Active, Pending, and Scheduled Orders This [...] Date/Time Test Type Test Details Facility Name Jun 11, 2024 04:42 PM Consult Order COMMUNITY CARE-WOUND Cons [facility] [place] ([facility]) Jun 28, 2024 03:50 PM Consult Order PROSTHETIC S REQUEST Cons Dynamometer Repairer's [facility] ([facility]) Vital Signs: All taken on the encounter date This section contains inpatient and outpatient Vital Signs collected on the date of the Encounter. Date/Time Temperature Pulse Blood Pressure Respiratory Rate SP02 Pain Height Weight Body Mass Index Source May 15, 2024 03:08 PM 98.2 92 112/71 20 95 5 203 34 GREENJAZMIN ELD ([facility]) Social History: Smoking Status (Most current) [...] Rolly william Sep 22, 2023 01:00 PM VA-TOBACCO [...] the Encounter. Date/Time Encounter Note(s) Provider Source May 15, 2024 03:14 PM ADDENDUM: LOCAL TITLE: Addendum STANDARD TITLE: ADDENDUM DATE OF NOTE: MAY 15, 2024@15:14:41 ENTRY DATE: MAY 15, 2024@15:14:42 AUTHOR: TODD DANIELS EXP COSIGNER: URGENCY: STATUS: COMPLETED AMSA: Please request most recent notes from: [facility] [address] [address] P: [phone] F: [phone] (Micaela Mendez central scheduling PSP /kasia/ TODD DANIELS RN REGISTERED NURSE Signed: 05/15/2024 15:15 Receipt Acknowledged By: 05/16/2024 08:34 /kasia/ DAIN MEJIAS for PRINCE JAIN --- Original Document --- 05/15/24 CLINICAL REMINDERS/NURSING: Influenza Immunization: Deferral / Refusal Deferred due to a precaution (i.e., acute illness, etc.) COVID-19 Immunization: Defer due to a PRECAUTION Reason: pending dates will bring in on next visit 05/2024 /daphney COLLINS LPN LICENSED PRACTICAL NURSE Signed: 05/15/2024 15:10 05/16/2024 ADDENDUM STATUS: UNSIGNED You may not VIEW this UNSIGNED Addendum. TODD DANIELS ([facility]) May 15, 2024 03:09 PM PREVENTIVE MEDICIN E NURSING NOTE: LOCAL TITLE: CLINICAL REMINDERS/NURSING STANDARD TITLE: PREVENTIVE MEDICINE NURSING NOTE DATE OF NOTE: MAY 15, 2024@15:09 ENTRY DATE: MAY 15, 2024@15:09:41 AUTHOR: CHRISTOPHER COLLINS EXP COSIGNER: URGENCY: STATUS: COMPLETED CLINICAL REMINDERS/NURSING Has ADDENDA Influenza Immunization: Deferral / Refusal Deferred due to a precaution (i.e., acute illness, etc.) COVID-19 Immunization: Defer due to a PRECAUTION Reason: pending dates will bring in on next visit 05/2024 /daphney COLLINS LPN LICENSED PRACTICAL NURSE Signed: 05/15/2024 15:10 05/15/2024 ADDENDUM STATUS: COMPLETED AMSA: Please request most recent notes from: [place] [address] P: [phone] F: [phone] (Micaela Mendez central scheduling PSP /kasia/ TODD DANIELS RN REGISTERED NURSE Signed: 05/15/2024 15:15 Receipt Acknowledged By: 05/16/2024 08:34 /daphney MEJIAS for PRINCE JAIN 05/16/2024 ADDENDUM STATUS: COMPLETED Horticulturalist requested records from Wound care clinic. /daphney MEJIAS Signed: 05/16/2024 08:35 CHRISTOPHER COLLINS ([facility]) May 15, 2024 03:00 PM PHYSICIAN NOTE: LOCAL TITLE: MD NOTE STANDARD TITLE: PHYSICIAN NOTE DATE OF NOTE: MAY 15, 2024@15:00 ENTRY DATE: MAY 15, 2024@15:00:57 AUTHOR: LENORA DEJESUS EXP COSIGNER: URGENCY: STATUS: COMPLETED PRIMARY CARE VISIT MUKUL KAY, is a 83 yo WHITE MALE who presents at the [place] [facility]. TYPE OF VISIT: Face to face 83-year-old male with a past medical history of atrial fibrillation on Eliquis s/p pacemaker, diabetes mellitus, Parkinson disease, hypertension, left 2nd toe amputation, Charcot foot, left lower extremity cellulitis (12/03/23-12/06/23 discharged with 4 days of linezolid), last admitted on 02/13- for nephrolithiasis, here for focused visit after recent admission for sepsis and left lower extremity cellulitis. After hospital stay patient was in rehab. He continues to follow with wound clinic regarding left lower extremity wounds. He needs referral to specialty supplies for a [place] walker [place] also concerned because his tremor is getting worse. HISTORY: PERIOD OF SERVICE - [employer] FROM May TO Jul COMBAT SERVICE INDICATED: No VITAL SIGNS: Blood Pressure: 112/71 (05/15/2024 15:08) Pain: 5 (05/15/2024 15:08) Patient Height: 65 in [165.1 cm] (11/24/2021 11:12) Patient Weight: 203 lb [92.08 kg] (05/15/2024 15:08) Pulse: 92 (05/15/2024 15:08) Respiration: 20 (05/15/2024 15:08) Temperature: 98.2 F [36.8 C] (05/15/2024 15:08) ASSISTIVE DEVICES: REVIEW OF SYSTEMS: CONSTITUTIONAL: No [...] bilateral feet. With deformities EXAMINATION General: Well-appearing St[place]ard in no obvious distress. Mental Status: Alert [...] pain, no HSM, central adiposity limits exam Neuro: Resting tremor worse left hand versus right and intention tremor bilaterally EXT: lower legs w/ generalized edema 1-2+ pitting, specialty shoes on with stockings CDI. Charcot foot disease, Derm: +hemosiderin staining to BLLE Get up and go slow and antalgic (X )with walker, using wheelchair for long distance in clinic ALLERGIES: ========= LISINOPRIL, METFORMIN >> HEALTH MAINTENANCE PREVENTIVE MEDICINE GOALS Influenza Immunization DUE NOW Medication Reconciliation DUE NOW COVID-19 Immunization DUE NOW (Optional) Whole Health Documentation DUE NOW ASSESSMENT/PLAN: Active problems - Computerized Problem List is the source for the followin. Diabetic foot ulcer 2. Spinal stenosis 3. Basal Cell Carcinoma of Skin ([facility] [id number]) 4. Parkinson's disease 5. Diabetes Mellitus Type 2 ([facility] [id number]) 6. HTN - Hypertension ([facility] [id number]) 7. History of malignant melanoma of the skin 8. AF- Atrial Fibrillation ([facility] [id number]) 9. Permanent cardiac pacemaker 10. Lymphedema of leg 11. Tremor ==Parkinsons: Tremors worsening. Neurology appointment months away and the tremor is making it difficult for Stoddard to perform daily tasks. Advised I can do an E consult for medication recommendation. ==Leg ulcer left: sepsis s/p admission and rehab. Needs [facility] clinic referral == Diabetes: Recent A1c 6.0. It was [...] place == Hypertension: Well-controlled on current medications FOLLOW UP: RTC Below & sooner PRN UPCOMING APPOINTMENTS: 06/12/2024 11:00 CWM/GO/PACT 1 WH 06/25/2024 14:30 NHM/OPTOMETRY/[place]/ 08/07/2024 13:00 [facility] CARE-NEUROLOGY 10/07/2024 14:30 CWM/GO/DERMATOLGY A minutes spent in patient evaluation, data review, and patient education. All medications were reconciled during this visit. No barriers; Patient understands and agrees to current treatment plan. If pt has any questions, concerns, or changes in current health status he/she will call or come [facility] to the [facility]. /kasia/ LENORA DEJESUS MD PHYSICIAN Signed: 05/16/2024 11:15 LENORA DEJESUS ([facility])
--- OUTSIDE RECORDS SUMMARY | 2024-08-07 12:23 | XMS_ITS ---
Author Name [facility] [place] [facility] [place] Address [address] [place] [address] Care Team Providers Care Broadcast Maintenance Engineer Name Role Phone LENORA DEJESUS Primary Care [...] Jul 31, 2014 MEDICAR E SUPPLEM E [id number] [phone] FR GAMALIEL KAY PATIENT [facility] MEDICARE SUPPLEMEN EVANGELISTA MEDIC ARE SUPP Jul 31, 2014 SUPP [id number] [phone] FR GAMALIEL KAY PATIENT MEDICARE (WNR) MEDICARE (M) PART A Jan 29, 2004 PART A [id number] [phone] FR GAMALIEL KAY PATIENT MEDICARE (WNR) MEDICARE (M) PART B Jan 29, 2004 PART B [id number] [phone] FR GAMALIEL KAY PATIENT [facility] (WNR) MEDICARE ADVANTAGE [facility]) Jul 31, 2023 [id number] [phone] FR GAMALIEL KAY PATIENT [facility] MCR (WNR) MEDICARE ADVANTAGE MCR (WNR) Jul 31, 2023 [id number] [phone] FR GAMALIEL KAY PATIENT Selected Encounter This section includes the information on record at [place] for the Encounter. Date/Time Encounter Type Encounter Description Reason Pro vider Source Mar 24, 2024 12:00 AM Outpatient Encounter EVENT (HISTORICAL) IHE Encounter Template Text not used by [place] [...] 2024 01:00 PM [facility] Apr 04, 2024 08:00 AM [place]ORY [place]ICINE [place] [facility] [place] [facility] May 15, 2024 02:00 PM [facility] Jun 12, 2024 11:00 [facility] Jun 19, 2024 01:00 PM AMBULATORY - MEDICINE [place] [facility] [place] [facility] Jun 25, 2024 02:30 PM AMBULATORY - MEDICINE [place] [facility] [place] [facility] Jul 30, 2024 03:30 PM [facility]) Aug 07, 2024 01:00 PM AMBULATORY - MEDICINE [place] [facility] [place] [facility] Aug 14, 2024 10:00 AM AMBULATORY - NONE [place] [facility] [place] [facility] Sep 02, 2024 03:30 PM AMBULATORY - MEDICINE [place] [facility] Sep 18, 2024 11:00 AM [facility] Lab Results: +/- 30 days of [...] Range Comment Mar 20, 2024 11:40 AM [place] ([facility]) MICROALBUMIN CREATININE RATIO PANEL Specimen Type: URINE No comment entered. Ordering Provider: FLYNN DEJESUS Report Released Date/Time: Mar 11, 2024 11:36 AM Reporting Lab: [address] [address] Performing Lab: [address] [address] MICROALBUMIN/C REATININE RATIO 13.3 mg/g 0-29.9 MICROALBUMIN,Q UANTITATIVE 2.0 mg/dL RR UNAVAIL CREATININE URINE 150.03 mg/dL Mar 20, 2024 11:40 AM [place] ([facility]) URINALYSIS Specimen Type: URINE Comment: If Glucose = >500 and Ketones are positive, please alert the Physician. Ordering Provider: FLYNN DEJESUS Report Released Date/Time: Mar 11, 2024 11:36 AM Reporting Lab: [address] [address] Performing Lab: [address] [address] UA COLOR Yellow Yellow UA APPEARANCE Clear Clear UA GLUCOSE Normal mg/dL Negative UA KETONES NEGATIVE mg/dL Negative UA BLOOD NEGATIVE mg/dL Negative UA PROTEIN 10 mg/dL Negative UA NITRITE NEGATIVE mg/dL Negative UA BILIRUBIN NEGATIVE mg/dL Negative UA SPECIFIC GRAVITY 1.023 H 1.016-1.02 2 UA pH 6.0 5.0-9.0 UA UROBILINOGEN Normal mg/dL <2.0 UA LEUKOCYTE SMALL Negative Mar 20, 2024 11:40 AM [place] ([facility]) MICROSCOPIC AUTOMATED, URINE Specimen Type: URINE Comment: If Glucose = >500 and Ketones are positive, please alert the Physician. Ordering Provider: FLYNN DEJESUS Report Released Date/Time: Mar 11, 2024 11:36 AM Reporting Lab: [address] [address] Performing Lab: [facility] [address] [facility] [address] UA WBC 6-10 /[HPF] H 0-5 UA MUCUS FEW /[LPF] Trace UA RBC 0-2 /[HPF] 0-3 UA SQUAMOUS EPITH FEW /[HPF] Mar 20, 2024 11:28 AM [place] ([facility]) VITAMIN B12 Specimen Type: SERUM No comment entered. Ordering Provider: FLYNN DEJESUS Report Released Date/Time: Mar 11, 2024 11:36 AM Reporting Lab: [facility] [address] [address] Performing Lab: [address] [address] VITAMIN B12 386 pg/mL 200-900 Mar 20, 2024 11:28 AM [place] ([facility]) VITAMIN D (25-[place]) Specimen Type: SERUM No comment entered. Ordering Provider: FLYNN DEJESUS Report Released Date/Time: Mar 11, 2024 11:36 AM Reporting Lab: [address] [address] Performing Lab: [address] [address] VITAMIN D (25-[place]) 29 ng/mL 20-50 Mar 20, 2024 11:28 AM [place] ([facility]) TSH Specimen Type: SERUM No comment entered. Ordering Provider: FLYNN DEJESUS Report Released Date/Time: Mar 11, 2024 11:36 AM Reporting Lab: [address] [address] Performing Lab: [address] [address] TSH 1.56 u[IU]/mL 0.35-5.00 Mar 20, 2024 11:28 AM [place] ([facility]) LIVER FUNCTION Specimen Type: SERUM No comment entered. Ordering Provider: FLYNN DEJESUS Report Released Date/Time: Mar 11, 2024 11:36 AM Reporting Lab: [address] [address] Performing Lab: [address] [address] PROTEIN,TOTAL 6.9 g/dL 6.0-8.3 ALBUMIN 3.5 g/dL 3.5-5.0 ALKALINE PHOSPHATASE 79 U/L 40-150 AST 14 U/L 5-34 ALT <6 U/L BILIRUBIN, TOTAL 0.5 mg/dL 0.2-1.2 Mar 20, 2024 11:28 AM [place] ([facility]) LIPID PANEL, NON FASTING Specimen Type: SERUM No comment entered. Ordering Provider: FLYNN DEJESUS Report Released Date/Time: Mar 11, 2024 11:36 AM Reporting Lab: [address] [address] Performing Lab: [address] [address] CHOLESTEROL 162 mg/dL TRIGLYCERIDE 115 mg/dL 0-150 LDL calculated 99 mg/dL 0-129 CHOL/HDL 4.1 HDL CHOLESTEROL 40 mg/dL 40-60 Mar 20, 2024 11:28 AM [place] ([facility]) CBC AND DIFF (AUTO) Specimen Type: BLOOD No comment entered. Ordering Provider: FLYNN DEJESUS Report Released Date/Time: Mar 11, 2024 11:36 AM Reporting Lab: [address] [address] Performing Lab: [address] [address] WBC 6.97 10*3/uL 4.50-11.00 RBC 5.38 10*6/uL [...] 10*3/uL 0.00-0.00 Mar 20, 2024 11:27 AM [facility] HEMOGLOBIN A1C PANEL Specimen Type: BLOOD [...] Jan 30, 2024 01:20 PM Reporting Lab: [address] [address] Performing Lab: [address] [address] HEMOGLOBIN A1C 6.0 H 4.0-5.6 Mar 20, 2024 11:27 AM [facility] BASIC METABOLIC PANEL (non-fasting) Specimen Type: SERUM No comment entered. Ordering Provider: LORY CARPENTER Report Released Date/Time: Jan 30, 2024 01:20 PM Reporting Lab: [facility] [address] [facility] [address] Performing Lab: [address] [address] UREA NITROGEN 21 mg/dL 7-25 GLUCOSE 175 mg/dL H 65-100 SODIUM 139 mmol/L 135-145 POTASSIUM 4.0 mmol/L 3.5-5.0 CHLORIDE 104 mmol/L 100-110 CO2 25 meq/L 20-30 CREATININE, Serum 1.11 mg/dL 0.50-1.40 eGFR(CKD-EPI 2020) 67 mL/min >60 Encounter Notes: All associated encounter notes This section contains the clinical notes associated to the Encounter. Date/Time Encounter Note(s) Provider Source Mar 24, 2024 12:00 AM NONVA NOTE: LOCAL TITLE: [facility] STANDARD TITLE: NONVA NOTE DATE OF NOTE: MAR 24, 2024 ENTRY DATE: APR 18, 2024@12:54:42 AUTHOR: ESE CLANCY COSIGNER: URGENCY: STATUS: COMPLETED VistA Imaging - Scanned Document SCANNED DOCUMENT SIGNATURE NOT REQUIRED Electronically Filed: 04/18/2024 by: ESE DOE CNTL [facility]
--- OUTSIDE RECORDS SUMMARY | 2024-08-07 12:23 | XMS_ITS | Encounter Summary ---
Author Name [facility] [place] [facility] [place] Address [address] [place] [address] Care Team Providers Care Director Orange Name Role Phone LENORA DEJESUS Primary Care [...] Jul 31, 2014 MEDICAR E SUPPLEM E [id number] [phone] FR GAMALIEL KAY PATIENT [facility] MEDICARE SUPPLEMEN EVANGELISTA MEDIC ARE SUPP Jul 31, 2014 SUPP [id number] [phone] FR GAMALIEL KAY PATIENT MEDICARE (WNR) MEDICARE (M) PART A Jan 29, 2004 PART A [id number] [phone] FR GAMALIEL KAY PATIENT MEDICARE (WNR) MEDICARE (M) PART B Jan 29, 2004 PART B [id number] [phone] FR GAMALIEL KAY PATIENT [facility] (WNR) MEDICARE ADVANTAGE [facility] ([facility]) Jul 31, 2023 [id number] [phone] FR GAMALIEL KAY PATIENT [facility] (WNR) MEDICARE ADVANTAGE MCR (WNR) Jul 31, 2023 [id number] [phone] FR GAMALIEL KAY PATIENT Selected Encounter This section includes the information on record at [place] for the Encounter. Date/Time Encounter Type Encounter Description Reason Pro vider Source May 21, 2024 11:26 AM Outpatient Encounter ADMIN PAT ACTIVTIES ([place]) [...] 20 appointments. The data comes from all [facility] facilities. Appointment Date/Time Appointment Type Appointme nt Facility Name Jun 12, 2024 11:00 AM AMBULATORY - MEDICINE [facility] ([facility]) Jun 19, 2024 01:00 PM [place]ORY [place]ICINE [place] [facility] Jun 25, 2024 02:30 PM AMBULATORY - MEDICINE [place] [facility] Jul 30, 2024 03:30 PM AMBULATORY - MEDICINE [facility] ([facility]) Aug 07, 2024 01:00 PM AMBULATORY - MEDICINE [place] [facility] Aug 14, 2024 10:00 AM AMBULATORY - NONE [place] [facility] [place] [facility] Sep 02, 2024 03:30 PM AMBULATORY - MEDICINE [place] [facility] Sep 18, 2024 11:00 AM AMBULATORY - MEDICINE [facility] ([facility]) Oct 07, 2024 02:30 PM AMBULATORY - MEDICINE [place] [facility] Active, Pending, and Scheduled Orders This [...] 04:42 PM Consult Order COMMUNITY CARE-WOUND Cons [facility] [place] ([facility]) Jun 28, 2024 03:50 PM Consult Order PROSTHETIC S REQUEST Cons [facility] [place] ([facility]) Encounter Notes: All associated encounter notes This section contains the clinical notes associated to the Encounter. Date/Time Encounter Note(s) Provider Source Jun 11, 2024 02:00 PM ADDENDUM: LOCAL TITLE: Addendum STANDARD TITLE: ADDENDUM DATE OF NOTE: JUN 11, 2024@14:00:07 ENTRY DATE: JUN 11, 2024@14:00:07 AUTHOR: ELENA VILLATOROIGNER: URGENCY: STATUS: COMPLETED [facility] outpatient wound clinic also requesting continuation of care referral for chronic wound care If PCP is agreeable, please submit a new CC-Wound care consult, thank you /kasia/ MASON BASHIR Nurse Practitioner Signed: 06/11/2024 14:00 Receipt Acknowledged By: 06/11/2024 14:50 /kasia/ TODD DANIELS RN REGISTERED NURSE === --- Original Document --- 05/21/24 CCC: SCHEDULING ADMINISTRATION: PT NEEDS CONSULT TO [facility] FOR WOUND ON LEFT FOOT WITH DISCHARGE. PLEASE FAX TO # [phone] [facility]. /kasia/ LASHAY TUCKER Medical Water Purification Chemist Signed: 05/21/2024 11:29 Receipt Acknowledged By: 05/21/2024 11:47 /kasia/ TODD DANIELS RN REGISTERED NURSE 05/21/2024 13:44 /kasia/ CHRISTOPHER COLLINS LPN LICENSED PRACTICAL NURSE 05/21/2024 ADDENDUM STATUS: COMPLETED Consult added and held for PCP review and signature. /kasia/ TODD DANIESL RN REGISTERED NURSE Signed: 05/21/2024 11:47 06/11/2024 ADDENDUM STATUS: COMPLETED Wound care consult added and held for PCP review and signature. /kasia/ TODD DANIELS RN REGISTERED NURSE Signed: 06/11/2024 14:50 ELENA VILLATORO [facility] May 21, 2024 11:26 AM ADMINISTRATIVE NOTE: LOCAL TITLE: CCC: SCHEDULING ADMINISTRATION STANDARD TITLE: ADMINISTRATIVE NOTE DATE OF NOTE: MAY 21, 2024@11:26 ENTRY DATE: MAY 21, 2024@11:27:06 AUTHOR: LASHAY TUCKER EXP COSIGNER: URGENCY: STATUS: COMPLETED CCC: SCHEDULING ADMINISTRATION Has ADDENDA PT NEEDS CONSULT TO [facility] FOR WOUND ON LEFT FOOT WITH DISCHARGE. PLEASE FAX TO # [phone] [facility]TA[facility] DEPT. /daphney TUCKER Medical Water Purification Chemist Signed: 05/21/2024 11:29 Receipt Acknowledged By: 05/21/2024 11:47 /kasia/ TODD DANIELS RN REGISTERED NURSE 05/21/2024 13:44 /kasia/ CHRISTOPHER COLLINS LPN LICENSED PRACTICAL NURSE 05/21/2024 ADDENDUM STATUS: COMPLETED Consult added and held for PCP review and signature. /kasia/ TODD DANIELS RN REGISTERED NURSE Signed: 05/21/2024 11:47 06/11/2024 ADDENDUM STATUS: COMPLETED [facility] outpatient wound clinic also requesting continuation of care referral for chronic wound care If PCP is agreeable, please submit a new CC-Wound care consult, thank you /MASON Weiss Nurse Practitioner Signed: 06/11/2024 14:00 Receipt Acknowledged By: 06/11/2024 14:50 /daphney DANIELS RN REGISTERED NURSE 06/11/2024 ADDENDUM STATUS: COMPLETED Wound care consult added and held for PCP review and signature. /daphney DANIELS RN REGISTERED NURSE Signed: 06/11/2024 14:50 LASHAY TUCKER [facility]
--- OUTSIDE RECORDS SUMMARY | 2024-08-07 12:23 | XMS_ITS | Encounter Summary ---
Author Name [facility] [place] [facility] [place] Organization [facility] [facility] [place] Address [address] [place] [address] Care Team Providers Care Bell Staff Name Role Phone LENORA DEJESUS Primary Care [...] Jul 31, 2014 MEDICAR E SUPPLEM E [id number] [phone] FR GAMALIEL KAY PATIENT [facility] MEDICARE SUPPLEMEN EVANGELISTA MEDIC ARE SUPP Jul 31, 2014 SUPP [id number] [phone] FR GAMALIEL KAY PATIENT MEDICARE (WNR) MEDICARE (M) PART A Jan 29, 2004 PART A [id number] [phone] FR GAMALIEL KAY PATIENT MEDICARE (WNR) MEDICARE (M) PART B Jan 29, 2004 PART B [id number] [phone] FR GAMALIEL KAY PATIENT [facility] (WNR) MEDICARE ADVANTAGE [facility] Jul 31, 2023 [id number] [phone] FR GAMALIEL KAY PATIENT [facility] (WNR) MEDICARE ADVANTAGE [facility] (WNR) Jul 31, 2023 [id number] [phone] FR GAMALIEL KAY PATIENT Selected Encounter This section includes the information on record at [place] for the Encounter. Date/Time Encounter Type Encounter Description Reason Provider Source May 16, 2024 03:46 PM HC PRO PHONE CALL 5-10 MIN TELEPHONE CASE MANAGEMENT ICD-10-CM Z71.9 Counseling, unspecified MORA GIFFORD Mitzi Encounter Template Text not used by [place] Assessments - Encounter Diagnoses This section includes the primary and secondary diagnoses documented for the Encounter. Date/Time Primary/Secondary Diagnosis Diagnosis Name Provider Source May 16, 2024 03:46 PM PRIMARY Counseling, unspecified MORA GIFFORD ([facility]) Plan of Treatment: Future Appointments (+ [...] 12, 2024 11:00 AM AMBULATORY - MEDICINE [facility] ([facility]) Jun 19, 2024 01:00 PM AMBULATORY - MEDICINE [place] [facility] [place] [facility] Jun 25, 2024 02:30 PM AMBULATORY - MEDICINE [place] [facility] [place] [facility] Jul 30, 2024 03:30 PM AMBULATORY - MEDICINE [facility] ([facility]) Aug 07, 2024 01:00 PM AMBULATORY - MEDICINE [place] [facility] [place] [facility] Aug 14, 2024 10:00 AM AMBULATORY - NONE [facility] [place] [facility] Sep 02, 2024 03:30 PM AMBULATORY - MEDICINE [place] [facility] [place] [facility] Sep 18, 2024 11:00 AM AMBULATORY - MEDICINE [facility] ([facility]) Oct 07, 2024 02:30 PM AMBULATORY - MEDICINE [place] [facility] [place] [facility] Active, Pending, and Scheduled Orders [...] 04:42 PM Consult Order COMMUNITY CARE-WOUND Cons [facility] ([facility]) Jun 28, 2024 03:50 PM Consult Order PROSTHETIC S REQUEST Cons [facility] ([facility]) Social History: Smoking Status (Most current) and Tobacco Use (All prior to encounter date) This section includes the most current, and the historical, smoking and tobacco- related health factors from the [facility] facility where the Encounter took place. Current Smoking Status This section includes the most current smoking, or tobacco-related health factor, from the VA facility where the Encounter took place. Date/Time Current Smoking Status Comment Jo william Sep 22, 2023 01:00 PM VA-TOBACCO NEVER USED [facility] ([facility]) Tobacco Use History This section includes a history of the smoking, or tobacco-related health factors, that were collected on or before the date of the Encounter. The data comes from the VA facility where the Encounter took place. Date/Time Smoking Status/Tobacco Use Comment F acjessica December 02, 2022 11:00 AM VA-TOBACCO NEVER USED [facility] ([facility]) Apr 15, 2022 11:30 AM VA-TOBACCO NEVER USED [facility] ([facility]) Apr 07, 2021 11:00 AM VA-TOBACCO NEVER USED [facility] ([facility]) Encounter Notes: All associated encounter notes This section contains the clinical notes associated to the Encounter. Date/Time Encounter Note(s) Provider Source May 16, 2024 03:46 PM SOCIAL WORK NOTE: LOCAL TITLE: SOCIAL WORK NOTE STANDARD TITLE: SOCIAL WORK NOTE DATE OF NOTE: MAY 16, 2024@15:46 ENTRY DATE: MAY 16, 2024@15:47:05 AUTHOR: MORA GIFFORD EXP COSIGNER: URGENCY: STATUS: COMPLETED SW reached out to Chili to follow up around home care services. stated that home health aide is planning to start tomorrow for 10 hour/ week. Chili discussed that he is considering have someone move into his home or move in with family for the winter months. stated that he is still receiving visits x1 weekly from the [facility] nurse. is continuing with some support from neighbor who lives close by. SW reviewed plan to follow up with Chili as needed. /kasia/ OLU Vargas, [facility] Crop Duster Helper Signed: 05/16/2024 15:58 MORA GIFFORD ([facility])
--- OUTSIDE RECORDS SUMMARY | 2024-08-07 12:23 | XMS_ITS | Encounter Summary ---
Author Name [facility] [facility] [place] [facility] [place] Address [address] [place] [address] Care Team Providers Care Lamination Assembler Name Role Phone LENORA DEJESUS Primary Care [...] Jul 31, 2014 MEDICAR E SUPPLEM E [id number] [phone] FR GAMALIEL KAY PATIENT [facility] MEDICARE SUPPLEMEN [facility]ELIST[facility] MEDIC ARE SUPP Jul 31, 2014 SUPP [id number] [phone] FR GAMALIEL KAY PATIENT MEDICARE (WNR) MEDICARE (M) PART A Jan 29, 2004 PART A [id number] [phone] FR GAMALIEL KAY PATIENT MEDICARE (WNR) MEDICARE (M) PART B Jan 29, 2004 PART B [id number] [phone] FR GAMALIEL KAY PATIENT [facility] (WNR) MEDICARE ADVANTAGE [facility] ([facility]) Jul 31, 2023 [id number] [phone] FR GAMALIEL KAY PATIENT [facility] (WNR) MEDICARE ADVANTAGE MCR (WNR) Jul 31, 2023 [id number] [phone] FR GAMALIEL KAY PATIENT Selected Encounter This section includes the information on record at [place] for the Encounter. Date/Time Encounter Type Encounter Description Reason Pro vider Source May 07, 2024 10:00 AM Outpatient Encounter ADMIN PAT ACTIVTIES ([facility]) I[facility] Encounter Template Text not used by [place] Plan of Treatment: Future Appointments (+ 6 months) and Future Tests (+/- 45 days) The Plan of Treatment section includes future care activities for the patient from all [place] treatmentfavidant [place] hospitalities. This section includes future appointments and [...] 15, 2024 02:00 [facility] Jun 12, 2024 11:00 AM AMBULATORY - MEDICINE [facility] ([facility]) Jun 19, 2024 01:00 PM AMBULATORY - MEDICINE [place] [facility] Jun 25, 2024 02:30 PM AMBULATORY - MEDICINE [place] [facility] Jul 30, 2024 03:30 PM AMBULATORY - MEDICINE [facility] ([facility]) Aug 07, 2024 01:00 PM AMBULATORY - MEDICINE [place] [place] [facility] Aug 14, 2024 10:00 AM AMBULATORY - NONE [place] [place] [place] [facility] Sep 02, 2024 03:30 PM AMBULATORY - MEDICINE [place] [facility] [place] [facility] Sep 18, 2024 11:00 AM AMBULATORY - MEDICINE [facility] ([facility]) Oct 07, 2024 02:30 PM AMBULATORY - MEDICINE [place] [place] [facility] Active, Pending, and Scheduled Orders This section includes a listing of several types of active, pending, and scheduled orders, including clinic medications orders, diagnostic test orders, procedure orders and consult orders; where the start date of the order is 45 days before the date of the Encounter or 45 days after the date of theEncounter. The data comes from all [place] treatment facilities. Test Date/Time Test Type Test Details Facility Name Jun 11, 2024 04:42 PM Consult Order COMMUNITY CARE-WOUND Cons [facility] ([facility]) Encounter Notes: All associated encounter notes This section contains the clinical notes associated to the Encounter. Date/Time Encounter Note(s) Provider Source May 07, 2024 10:34 AM ADDENDUM: LOCAL TITLE: Addendum STANDARD TITLE: ADDENDUM DATE OF NOTE: MAY 07, 2024@10:34:32 ENTRY DATE: MAY 07, 2024@10:34:33 AUTHOR: TODD DANIELS EXP COSIGNER: URGENCY: STATUS: COMPLETED Adding AMSA to assist with scheduling PCP appt for rehab d/c f/u. /es/ TODD DANIELS RN REGISTERED NURSE Signed: 05/07/2024 10:35 Receipt Acknowledged By: 05/07/2024 11:39 /es/ MADDI MILLER [facility] for PRINCE JAIN === --- Original Document --- 05/07/24 CCC: SCHEDULING ADMINISTRATION: Patient Demographics Patient Name: MUKUL KAY Patient Primary Phone: [phone] Patient Primary Address: [address] [place] [address] Patient : 1940 Patient Age: 83 Call Back Number: [phone] ex [phone] Caller/Recipient Relation to Patient: Other If Other Describe Relation to Patient: [facility] Caller Name: Lupe Administrative Administrative Note Reason: Outside Care Performed Administrative Note Comments: Lupe from [facility] has called to request hospital D/C follow within 2 weeks. will be gong home tomorrow 05/08/24. Lupe would like a call back to schedule appt, if appt made with she would like a call to know the date of f/u appt to add to D/C paperwork. Lupe Can be reached at [phone] ex [phone]. IMPORTANT: This note was created by [facility] Clinical Contact Center staff. Please do not alert the staff member by adding them as a signer for future communications. Alerts are not monitored by this user. /kasia/ KATEY POSADA VISN [facility] AMSA Signed: 05/07/2024 10:00 Receipt Acknowledged By: 05/07/2024 10:35 /es/ TODD DANIELS, RN REGISTERED NURSE 05/07/2024 10:57 /es/ CARMELITA VASQUEZ LPN LICENSED PRACTICAL NURSE for CHRISTOPHER COLLINS 05/07/2024 ADDENDUM STATUS: UNSIGNED You may not VIEW this UNSIGNED Addendum. TODD DANIELS [place] [facility] [place] [facility] May 07, 2024 10:00 AM ADMINISTRATIVE NOTE: LOCAL TITLE: CCC: SCHEDULING ADMINISTRATION STANDARD TITLE: ADMINISTRATIVE NOTE DATE OF NOTE: MAY 07, 2024@10:00:47 ENTRY DATE: MAY 07, 2024@10:00:47 AUTHOR: KATEY POSADA EXP COSIGNER: URGENCY: STATUS: COMPLETED CCC: SCHEDULING ADMINISTRATION Has ADDENDA Patient Demographics Patient Name: MUKUL KAY Patient Primary Phone: [phone] Patient Primary [address]: [address] [place] [address] Patient : 1940 Patient Age: 83 Call Back Number: [phone] ex [phone] Caller/Recipient Relation to Patient: Other If Other Describe Relation to Patient: [facility] Caller Name: Lupe Administrative Administrative Note Reason: Outside Care Performed Administrative Note Comments: Lupe from [facility] has called to request hospital D/C follow within 2 weeks. [place] will be gong home tomorrow 05/08/24. Lupe would like a call back to schedule appt, if appt made with she would like a call to know the date of f/u appt to add to D/C paperwork. Lupe Can be reached at [phone] ex [phone]. IMPORTANT: This note was created by [facility] Clinical Contact Center staff. Please do not alert the staff member by adding them as a signer for future communications. Alerts are not monitored by this user. /kasia/ KATEY COOMBSN 1 [facility] AMSA Signed: 05/07/2024 10:00 Receipt Acknowledged By: 05/07/2024 10:35 /es/ TODD DANIELS, RN REGISTERED NURSE 05/07/2024 10:57 /es/ CARMELITA VASQUEZ LPN LICENSED PRACTICAL NURSE for CHRISTOPHER QUEVEDOROS 05/07/2024 ADDENDUM STATUS: COMPLETED Adding AMSA to assist with scheduling PCP appt for rehab d/c f/u. /kasia/ TODD DANIELS RN REGISTERED NURSE Signed: 05/07/2024 10:35 Receipt Acknowledged By: 05/07/2024 11:39 /es/ MADDI MILLER AMS[facility] for PRINCE JAIN 05/07/2024 ADDENDUM STATUS: COMPLETED AMSA spoke with Prudence at [facility]. Discharge f/u appt is scheduled for 05/15/24 per Prudence. She will fax over discharge paperwork. /kasia/ MADDI MILLER AMSA Signed: 05/07/2024 11:41 KATEY POSADA IN [facility] [place] [facility]
--- OUTSIDE RECORDS SUMMARY | 2024-08-07 12:23 | XMS_ITS | Encounter Summary ---
Author Name [place] Organization [place] Address [address] [place] [address] Care Team Providers Care Slot Machine Department Floorperson Name Role Phone LENORA DEJESUS Primary Care [...] Jul 31, 2014 MEDICAR E SUPPLEM E [id number] [phone] FR GAMALIEL KAY PATIENT [facility] MEDICARE SUPPLEMEN [place]ELIST[place] MEDIC ARE SUPP Jul 31, 2014 SUPP [id number] [phone] FR GAMALIEL KAY PATIENT MEDICARE (WNR) MEDICARE (M) PART A Jan 29, 2004 PART A [id number] [phone] FR GAMALIEL KAY PATIENT MEDICARE (WNR) MEDICARE (M) PART B Jan 29, 2004 PART B [id number] [phone] FR GAMALIEL KAY PATIENT [facility] (WNR) MEDICARE ADVANTAGE [facility] ([facility] Jul 31, 2023 [id number] [phone] FR GAMALIEL KAY PATIENT [facility] (WNR) MEDICARE ADVANTAGE [facility] (WNR) Jul 31, 2023 [id number] [phone] FR GAMALIEL KAY PATIENT Selected Encounter This section includes the information on record at [place] for the Encounter. Date/Time Encounter Type Encounter Description Reason Pro vider Source Apr 11, 2024 03:34 PM Outpatient Encounter PRIMARY CARE/MEDICINE IHE Encounter Template Text not used by [place] Plan of Treatment: Future Appointments (+ 6 months) and Future Tests (+/- 45 days) The Plan of Treatment section includes future care activities for the patient from all [place] treatmentfacilities. This section includes future appointments and future orders which are active, pending or scheduled. Future Appointments This section includes appointments that were scheduled to occur 6 months from the date of the Encounter, up to a maximum of 20 appointments. The data comes from all [place] treatment facilities. Appointment Date/Time Appointment Type Appointme nt Facility Name May 15, 2024 02:00 PM AMBULATORY - MEDICINE [facility] ([facility]) Jun 12, 2024 11:00 AM AMBULATORY - MEDICINE [facility] ([facility]) Jun 19, 2024 01:00 PM [place] [facility] [place] [facility] Jun 25, 2024 02:30 PM AM[place]ATORY [place]IC[place] [facility] [place] [facility] Jul 30, 2024 03:30 PM AMBULATORY - MEDICINE [facility] ([facility]) Aug 07, 2024 01:00 PM AM[place]ULATORY - [place]ICINE [place] [facility] [place] [facility] Aug 14, 2024 10:00 AM AMBULATORY - NONE [place] [facility] [place] [facility] Sep 02, 2024 03:30 PM AMBULATORY - MEDICINE [place] [facility] [place] [facility] Sep 18, 2024 11:00 AM AMBULATORY - MEDICINE [facility] ([facility]) Oct 07, 2024 02:30 PM AMBULATORY - [place]ICINE [place] [facility] [place] [facility] Lab Results: +/- 30 days of the encounter This section includes the Chemistry and Hematology Lab Results on record with [place] for the patient. Radiology Reports and Pathology Reports are provided separately, in subsequent sections. Lab Results This section contains the Chemistry/Hematology Results that were resulted 30 days before or 30 daysafter the date of the Encounter. Date/Time Source Result Type Result - Unit Interpretation Reference Range Comment Mar 20, 2024 11:40 AM [place] ([facility]) MICROALBUMIN CREATININE RATIO PANEL Specimen Type: URINE No comment entered. Ordering Provider: FLYNN DEJESUS Report Released Date/Time: Mar 11, 2024 11:36 AM Reporting Lab: [address] [address] Performing Lab: [address] [address] MICROALBUMIN/C REATININE RATIO 13.3 mg/g 0-29.9 MICROALBUMIN,Q UANTITATIVE 2.0 mg/dL RR UNAVAIL CREATININE URINE 150.03 mg/dL Mar 20, 2024 11:40 AM [facility] ([facility]) URINALYSIS Specimen Type: URINE Comment: If Glucose = >500 and Ketones are positive, please alert the Physician. Ordering Provider: FLYNN DEJESUS Report Released Date/Time: Mar 11, 2024 11:36 AM Reporting Lab: [address] [address] Performing Lab: [address] [address] UA COLOR Yellow Yellow UA APPEARANCE Clear Clear UA GLUCOSE Normal mg/dL Negative UA KETONES NEGATIVE mg/dL Negative UA BLOOD NEGATIVE mg/dL Negative UA PROTEIN 10 mg/dL Negative UA NITRITE NEGATIVE mg/dL Negative UA BILIRUBIN NEGATIVE mg/dL Negative UA SPECIFIC GRAVITY 1.023 H 1.016-1.02 2 UA pH 6.0 5.0-9.0 UA UROBILINOGEN Normal mg/dL <2.0 UA LEUKOCYTE SMALL Negative Mar 20, 2024 11:40 AM [place] ([facility]) MICROSCOPIC AUTOMATED, URINE Specimen Type: URINE Comment: If Glucose = >500 and Ketones are positive, please alert the Physician. Ordering Provider: FLYNN DEJESUS Report Released Date/Time: Mar 11, 2024 11:36 AM Reporting Lab: [address] [address] Performing Lab: [address] [address] UA WBC 6-10 /[HPF] H 0-5 UA MUCUS FEW /[LPF] Trace UA RBC 0-2 /[HPF] 0-3 UA SQUAMOUS EPITH FEW /[HPF] Mar 20, 2024 11:28 AM [facility] ([facility]) VITAMIN D (25-OH) Specimen Type: SERUM No comment entered. Ordering Provider: FLYNN DEJESUS Report Released Date/Time: Mar 11, 2024 11:36 AM Reporting Lab: [facility] [place] [address] [address] Performing Lab: [facility]ITALRDE[facility] [address] VITAMIN D (25-OH) 29 ng/mL 20-50 Mar 20, 2024 11:28 AM [facility] ([facility]) VITAMIN B12 Specimen Type: SERUM No comment entered. Ordering Provider: FLYNN DEJESUS Report Released Date/Time: Mar 11, 2024 11:36 AM Reporting Lab: [facility]ITALRDE[facility]OSPITALTRN [facility]OSPITALUSETS [address] [address] Performing Lab: [facility] [address]ITALRDE[facility] M[facility]OSPITALTRN [facility]OSPITALUSETS [address] [address] VITAMIN B12 386 pg/mL 200-900 Mar 20, 2024 11:28 AM [facility] ([facility]) TSH Specimen Type: SERUM No comment entered. Ordering Provider: FLYNN DEJESUS Report Released Date/Time: Mar 11, 2024 11:36 AM Reporting Lab: [facility]ITALRDE[facility]OSPITALTRN [facility]OSPITALUSETS [address] [address] Performing Lab: [facility] [place] [address] [address] TSH 1.56 u[IU]/mL 0.35-5.00 Mar 20, 2024 11:28 AM [facility] ([facility]) LIVER FUNCTION Specimen Type: SERUM No comment entered. Ordering Provider: FLYNN DEJESUS Report Released Date/Time: Mar 11, 2024 11:36 AM Reporting Lab: [facility]ITALRDECAT[facility] M[facility] HOSPITALTRN [facility]ITALUSE[address] [address] Performing Lab: [facility] [address]ITALRDECAT[facility]OSPITALTRN [facility] [address] PROTEIN,TOTAL 6.9 g/dL 6.0-8.3 ALBUMIN 3.5 g/dL 3.5-5.0 ALKALINE PHOSPHATASE 79 U/L 40-150 AST 14 U/L 5-34 ALT <6 U/L BILIRUBIN, TOTAL 0.5 mg/dL 0.2-1.2 Mar 20, 2024 11:28 AM [facility] ([facility]) LIPID PANEL, NON FASTING Specimen Type: SERUM No comment entered. Ordering Provider: FLYNN DEJESUS Report Released Date/Time: Mar 11, 2024 11:36 AM Reporting Lab: [address] [address] Performing Lab: [place] [address] CHOLESTEROL 162 mg/dL TRIGLYCERIDE 115 mg/dL 0-150 LDL calculated 99 mg/dL 0-129 CHOL/HDL 4.1 HDL CHOLESTEROL 40 mg/dL 40-60 Mar 20, 2024 11:28 AM [place] ([facility]) CBC AND DIFF (AUTO) Specimen Type: BLOOD No comment entered. Ordering Provider: FLYNN DEJESUS Report Released Date/Time: Mar 11, 2024 11:36 AM Reporting Lab: [address] [address] Performing Lab: [place] [phone] WBC 6.97 10*3/uL 4.50-11.00 RBC 5.38 10*6/uL [...] 10*3/uL 0.00-0.00 Mar 20, 2024 11:27 AM [facility] HEMOGLOBIN A1C PANEL Specimen Type: BLOOD [...] Jan 30, 2024 01:20 PM Reporting Lab: [facility] [address] [facility] [address] Performing Lab: [address] [address] HEMOGLOBIN A1C 6.0 H 4.0-5.6 Mar 20, 2024 11:27 AM [facility] BASIC METABOLIC PANEL (non-fasting) Specimen Type: SERUM No comment entered. Ordering Provider: LORY CARPENTER Report Released Date/Time: Jan 30, 2024 01:20 PM Reporting Lab: [facility] [address] [facility] [address] Performing Lab: [address] [address] UREA NITROGEN 21 mg/dL 7-25 GLUCOSE 175 mg/dL H 65-100 SODIUM 139 mmol/L 135-145 POTASSIUM 4.0 mmol/L 3.5-5.0 CHLORIDE 104 mmol/L 100-110 CO2 25 meq/L 20-30 CREATININE, Serum 1.11 mg/dL 0.50-1.40 eGFR(CKD-EPI 2020) 67 mL/min >60 Encounter Notes: All associated encounter notes This section contains the clinical notes associated to the Encounter. 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 [ ] Remind of upcoming primary care appt. SPOKE WITH: [ ] Fasting blood work needed, and vet reminded. [ ] Non fasting blood work needed, and vet reminded. [ ] No labs needed. [ ] UNABLE TO REACH : [X} Left voicemail. [ ] Unable to leave voicemail. [ ] No phone number available/no working phone number [X} Mailed Letter /kasia/ PRINCE JAIN ADVANCED SLOT SUPERVISOR Signed: 04/11/2024 15:35 PRINCE JAIN ([facility]) Apr 11, 2024 03:34 PM LETTERS: LOCAL TITLE: PATIENT LETTER (T) STANDARD TITLE: LETTERS DATE OF NOTE: APR 11, 2024@15:34 ENTRY DATE: APR 11, 2024@15:34:56 AUTHOR: PRINCE JAIN EXP COSIGNER: URGENCY: STATUS: COMPLETED [facility] Toll Free Number Primary Care Telephone Assistance can be reached at extension [phone] [facility] scheduling can be reached at extension [phone] [facility] scheduling can be reached at ext [phone] [facility] [address] [place] [address] [phone] * [phone] * MUKUL KAY [address] [place], [place] [address] Date: APR 11, 2024 Dear : Our goal at the [facility] is to provide you with quality medical care. We have been trying to reach you unsuccessfully to schedule an appt with you at the [facility], [address] [place] [address] Please call us at Monday through Monday, 8am-4pm to schedule this appointment. Sincerely, Office Staff for: Primary Care [facility] [address] [place] [address] T [phone] F [phone] Upcoming Appointments: 06/12/2024 11:00 CWM/GO/PACT 1 WH 06/25/2024 14:30 NHM/OPTOMETRY/DONALDSON/ 08/07/2024 13:00 COM CARE-NEUROLOGY 10/07/2024 14:30 CWM/GO/DERMATOLGY A APPOINTMENT ABBREVIATION FLOR (SPOPC OR SO = [address]) (GOPC OR GO = [address]) (NHM or NO = [facility]) (VVC - Video Call) (TH - Telehealth) MUKUL KAY [address] [place], [place], [address] [place], Sincerely, Your Primary Care Team [facility] [address] [address] [place] [address] [phone] [facility] [address],2[address] [place] [address] [place] [address] [facility] [address] [facility],[address]st Floor [address] [place] [phone] [place] [address] PRINCE JAIN ([facility])
--- OUTSIDE RECORDS SUMMARY | 2024-08-07 12:23 | XMS_ITS ---
Author Name [place] Address [address] [place] [address] Care Team Providers Care Bus Transportation Manager Name Role Phone LENORA DEJESUS Primary [...] Jul 31, 2014 MEDICAR E SUPPLEM E [id number] [phone] FR GAMALIEL KAY PATIENT [facility] MEDICARE SUPPLEMEN [place] MEDIC ARE SUPP Jul 31, 2014 SUPP [id number] [phone] FR GAMALIEL KAY PATIENT MEDICARE (WNR) MEDICARE (M) PART A Jan 29, 2004 PART A [id number] [phone] FR GAMALIEL KAY PATIENT MEDICARE (WNR) MEDICARE (M) PART B Jan 29, 2004 PART B [id number] [phone] FR GAMALIEL KAY PATIENT [facility] (WNR) MEDICARE ADVANTAGE [facility] ([facility]) Jul 31, 2023 [id number] [phone] FR GAMALIEL KAY PATIENT [facility] (WNR) MEDICARE ADVANTAGE [facility] (WNR) Jul 31, 2023 [id number] [phone] FR GAMALIEL KAY PATIENT Selected Encounter This section includes the information on record at [place] for the Encounter. Date/Time Encounter Type Encounter Description Reason Pro vider Source Mar 14, 2024 12:00 AM Outpatient Encounter EVENT (HISTORICAL) [...] 27, 2024 01:00 PM [facility] Apr 04, 2024 08:00 AM AMBULATORY - MEDICINE [place] [facility] May 15, 2024 02:00 PM [facility] Jun 12, 2024 11:00 AM [facility] Jun 19, 2024 01:00 PM AMBULATORY - MEDICINE [place] [facility] Jun 25, 2024 02:30 PM AMBULATORY - MEDICINE [place] [facility] Jul 30, 2024 03:30 PM [facility] Aug 07, 2024 01:00 PM AMBULATORY - MEDICINE [place] [facility] Aug 14, 2024 10:00 AM AMBULATORY - NONE [place] [facility] [facility] Sep 02, 2024 03:30 PM AMBULATORY - MEDICINE [place] [facility] Lab Results: +/- 30 days of the [...] Range Comment Mar 20, 2024 11:40 AM [place] ([facility]) MICROALBUMIN CREATININE RATIO PANEL Specimen Type: URINE No comment entered. Ordering Provider: FLYNN DEJESUS Report Released Date/Time: Mar 11, 2024 11:36 AM Reporting Lab: [address] [address] Performing Lab: [address] [address] MICROALBUMIN/C REATININE RATIO 13.3 mg/g 0-29.9 MICROALBUMIN,Q UANTITATIVE 2.0 mg/dL RR UNAVAIL CREATININE URINE 150.03 mg/dL Mar 20, 2024 11:40 AM [facility] [place] ([facility]) URINALYSIS Specimen Type: URINE Comment: If Glucose = >500 and Ketones are positive, please alert the Physician. Ordering Provider: FLYNN DEJESUS Report Released Date/Time: Mar 11, 2024 11:36 AM Reporting Lab: [address] [address] Performing Lab: [address] [address] UA COLOR Yellow Yellow UA APPEARANCE Clear Clear UA GLUCOSE Normal mg/dL Negative UA KETONES NEGATIVE mg/dL Negative UA BLOOD NEGATIVE mg/dL Negative UA PROTEIN 10 mg/dL Negative UA NITRITE NEGATIVE mg/dL Negative UA BILIRUBIN NEGATIVE mg/dL Negative UA SPECIFIC GRAVITY 1.023 H 1.016-1.02 2 UA pH 6.0 5.0-9.0 UA UROBILINOGEN Normal mg/dL <2.0 UA LEUKOCYTE SMALL Negative Mar 20, 2024 11:40 AM [facility] [place] ([facility]) MICROSCOPIC AUTOMATED, URINE Specimen Type: URINE Comment: If Glucose = >500 and Ketones are positive, please alert the Physician. Ordering Provider: FLYNN DEJESUS Report Released Date/Time: Mar 11, 2024 11:36 AM Reporting Lab: [address] [address] Performing Lab: [address] [address] UA WBC 6-10 /[HPF] H 0-5 UA MUCUS FEW /[LPF] Trace UA RBC 0-2 /[HPF] 0-3 UA SQUAMOUS EPITH FEW /[HPF] Mar 20, 2024 11:28 AM [facility] ([facility]) VITAMIN B12 Specimen Type: SERUM No comment entered. Ordering Provider: FLYNN DEJESUS Report Released Date/Time: Mar 11, 2024 11:36 AM Reporting Lab: [facility]RSOUTHE[facility]ENTERTRN [facility]ITALUSEMAN[facility] [address] [facility] [address] Performing Lab: [facility]ITALRBAP[facility] SOUTHN [facility]ITALUSE[address] [address] VITAMIN B12 386 pg/mL 200-900 Mar 20, 2024 11:28 AM [facility] ([facility]) VITAMIN D (25-OH) Specimen Type: SERUM No comment entered. Ordering Provider: FLYNN DEJESUS Report Released Date/Time: Mar 11, 2024 11:36 AM Reporting Lab: [facility]ITALRBAPT[facility] SOUTHN [address] [address] Performing Lab: [facility]ITALRBAPT[facility] SOUTHN [facility] [address] VITAMIN D (25-OH) 29 ng/mL 20-50 Mar 20, 2024 11:28 AM [facility] ([facility]) TSH Specimen Type: SERUM No comment entered. Ordering Provider: FLYNN DEJESUS Report Released Date/Time: Mar 11, 2024 11:36 AM Reporting Lab: [facility]ITALRBAPT[facility] S[facility]THN [facility]ITALUSE[address] [address] Performing Lab: [facility]OSPITALRL TRN [facility] HOSPITALUSETS [address] [address] TSH 1.56 u[IU]/mL 0.35-5.00 Mar 20, 2024 11:28 AM [facility] ([facility]) LIVER FUNCTION Specimen Type: SERUM No comment entered. Ordering Provider: FLYNN DEJESUS Report Released Date/Time: Mar 11, 2024 11:36 AM Reporting Lab: [facility]ITALRBAPT[facility] SOUTHN [address] [address] Performing Lab: [facility]PITALRBAPT[facility]OUTHN [facility] [address] PROTEIN,TOTAL 6.9 g/dL 6.0-8.3 ALBUMIN 3.5 g/dL 3.5-5.0 ALKALINE PHOSPHATASE 79 U/L 40-150 AST 14 U/L 5-34 ALT <6 U/L BILIRUBIN, TOTAL 0.5 mg/dL 0.2-1.2 Mar 20, 2024 11:28 AM [facility] ([facility]) LIPID PANEL, NON FASTING Specimen Type: SERUM No comment entered. Ordering Provider: FLYNN DEJESUS Report Released Date/Time: Mar 11, 2024 11:36 AM Reporting Lab: [address] [address] Performing Lab: [place] [address] CHOLESTEROL 162 mg/dL TRIGLYCERIDE 115 mg/dL 0-150 LDL calculated 99 mg/dL 0-129 CHOL/HDL 4.1 HDL CHOLESTEROL 40 mg/dL 40-60 Mar 20, 2024 11:28 AM [facility] ([facility]) CBC AND DIFF (AUTO) Specimen Type: BLOOD No comment entered. Ordering Provider: FLYNN DEJESUS Report Released Date/Time: Mar 11, 2024 11:36 AM Reporting Lab: [address] [address] Performing Lab: [place] [phone] WBC 6.97 10*3/uL 4.50-11.00 RBC 5.38 10*6/uL [...] 10*3/uL 0.00-0.00 Mar 20, 2024 11:27 AM [facility] HEMOGLOBIN A1C PANEL Specimen Type: BLOOD [...] Jan 30, 2024 01:20 PM Reporting Lab: [facility] [address] [facility] [address] Performing Lab: [address] [address] HEMOGLOBIN A1C 6.0 H 4.0-5.6 Mar 20, 2024 11:27 AM [facility] BASIC METABOLIC PANEL (non-fasting) Specimen Type: SERUM No comment entered. Ordering Provider: LORY CARPENTER Report Released Date/Time: Jan 30, 2024 01:20 PM Reporting Lab: [facility] [address] [facility] [address] Performing Lab: [address] [address] UREA NITROGEN 21 mg/dL 7-25 GLUCOSE 175 mg/dL H 65-100 SODIUM 139 mmol/L 135-145 POTASSIUM 4.0 mmol/L 3.5-5.0 CHLORIDE 104 mmol/L 100-110 CO2 25 meq/L 20-30 CREATININE, Serum 1.11 mg/dL 0.50-1.40 eGFR(CKD-EPI 2020) 67 mL/min >60 Encounter Notes: All associated encounter notes This section contains the clinical notes associated to the Encounter. Date/Time Encounter Note(s) Provider Source Mar 14, 2024 12:00 AM NONVA NOTE: LOCAL TITLE: NON-[facility] STANDARD TITLE: NONVA NOTE DATE OF NOTE: MAR 14, 2024 ENTRY DATE: APR 18, 2024@12:53:58 AUTHOR: ESE CLANCY EXP COSIGNER: URGENCY: STATUS: COMPLETED VistA Imaging - Scanned Document SCANNED DOCUMENT SIGNATURE NOT REQUIRED Electronically Filed: 04/18/2024 by: ESE DOE [facility]L [facility]
--- OUTSIDE RECORDS SUMMARY | 2024-08-07 12:23 | XMS_ITS | Encounter Summary ---
Author Name [facility] [place] Address [address] [place] [address] Care Team Providers Care Tattoo Technician Name Role Phone LENORA DEJESUS Primary [...] Jul 31, 2014 MEDICAR E SUPPLEM E [id number] [phone] FR GMAALIEL KAY PATIENT [facility] MEDICARE SUPPLEMEN [place]ANGELIST[place] MEDIC ARE SUPP Jul 31, 2014 SUPP [id number] [phone] FR GAMALIEL KAY PATIENT MEDICARE (WNR) MEDICARE (M) PART A Jan 29, 2004 PART A [id number] [phone] FR GAMALIEL KAY PATIENT MEDICARE (WNR) MEDICARE (M) PART B Jan 29, 2004 PART B [id number] [phone] FR GAMALIEL KAY PATIENT [facility] (WNR) MEDICARE ADVANTAGE [facility] ([facility]) Jul 31, 2023 [id number] GAMALIEL MACHADO PATIENT [facility] MCR (WNR) MEDICARE ADVANTAGE MCR (WNR) Jul 31, 2023 [id number] [phone] FR GAMALIEL KAY PATIENT Selected Encounter This section includes the information on record at [place] for the Encounter. Date/Time Encounter Type Encounter Description Reason Pro vider Source Apr 22, 2024 10:05 AM Outpatient Encounter PRIMARY CARE/MEDICINE IHE Encounter Template Text not used by [place] Plan of Treatment: Future Appointments (+ 6 months) and Future Tests (+/- 45 days) The Plan of Treatment section includes future care activities for the patient from all [place] treatmentfacilities. This section includes future appointments and future orders which are active, pending or scheduled. Future Appointments This section includes appointments that were scheduled to occur 6 months from the date of the Encounter, up to a maximum of 20 appointments. The data comes from all [place] treatment facilities. Appointment Date/Time Appointment Type Appointme nt Facility Name May 15, 2024 02:00 PM [facility] ([facility]) Jun 12, 2024 11:00 AM [facility] ([facility]) Jun 19, 2024 01:00 PM AMBULATORY - [place]ICINE [place] [facility] Jun 25, 2024 02:30 PM AMBULATORY - MEDICINE [place] [facility] [facility] Jul 30, 2024 03:30 PM [facility] Aug 07, 2024 01:00 PM AMBULATORY - MEDICINE [place] [facility] Aug 14, 2024 10:00 AM AMBULATORY - NONE [place] [facility] [place] [facility] Sep 02, 2024 03:30 PM AMBULATORY - MEDICINE [place] [facility] Sep 18, 2024 11:00 AM [facility] Oct 07, 2024 02:30 PM AMBULATORY - MEDICINE [place] [facility] [place] [facility] Encounter Notes: All associated encounter notes This section contains the clinical notes associated to the Encounter. Date/Time Encounter Note(s) Provider Source Apr 22, 2024 10:05 AM NONVA NOTE: LOCAL TITLE: NON-VA HOSPITALIZATIONS/ER STANDARD TITLE: NONVA NOTE DATE OF NOTE: APR 22, 2024@10:05 ENTRY DATE: APR 22, 2024@10:06:24 AUTHOR: TODD DANIELS COSIGNER: URGENCY: STATUS: COMPLETED This note is entered for the sole purpose of scanning Non-VA documentation into [employer]. [facility] [place] Date of Admission: 04/05/2024 Date of Discharge: 04/15/2024 Author: KENDALL Wagner Discharge Diagnosis Septic shock (R65.21) Sepsis (A41.9) Shortness of breath (R06.02) Cellulitis of left leg (L03.116) CHF (congestive heart failure) (I50.9) Atrial fibrillation (I48.91) Diabetes mellitus (E11.9) Parkinson disease (G20.A1) Left nephrolithiasis (N20.0) Increased frequency of micturition (R35.0) Discharge Medications apixaban (apixaban 5 mg oral tablet) 5 Milligram By Mouth 2 times a day for 21 Days as directed on package labeling Ascorbic Acid (Vitamin C 1000 mg oral tablet) 1 tab(s) 1,000 Milligram By Mouth Daily Carbidopa-Levodopa (carbidopa-levodopa 25 mg-100 mg oral tablet) 2 tab(s) By Mouth 3 times a day Cetirizine (cetirizine 10 mg oral tablet) 10 Milligram By Mouth Daily for 30 Days Cholecalciferol (Vitamin D3 2000 intl units oral tablet) 1 tab(s) 50 Microgram By Mouth Daily Doxycycline (doxycycline hyclate 100 mg oral capsule) 1 capsule 100 Milligram By Mouth 2 times a day for 10 Days Fluticasone Nasal (fluticasone 50 mcg/inh nasal spray) 1 spray(s) 50 Microgram Nares, Both 2 times a day for 30 Days Furosemide (Lasix 20 mg oral tablet) 20 Milligram 1 tablet By Mouth Daily in the afternoon Glimepiride (glimepiride 1 mg oral tablet) 1 tab(s) 1 Milligram By Mouth Daily Metoprolol (metoprolol 50 mg oral tablet) 75 Milligram By Mouth 2 times a day for 30 Days Miscellaneous Rx (Misc Rx) Vitamin D/ Vitamin C/ Magnesium 1 tab Oral Daily Medications Started Cetirizine (Zyrtec) 10 mg daily Fluticasone Nasal Loyal 1 spray in both nares twice daily. Doses Changed Metoprolol increased from 50 mg to 75 mg twice daily Assessment and Plan Assessment: This is a 83-year-old male with a past medical history of atrial fibrillation on Eliquis s/p pacemaker, diabetes mellitus, Parkinson disease, hypertension, left 2nd toe amputation, Charcot foot, left lower extremity cellulitis (12/03/23-12/06/23 discharged with 4 days of linezolid), last admitted on 02/13- for nephrolithiasis presents with generalized weakness, fall, and difficulty breathing admitted for sepsis and left lower cellulitis. Patient was seen and examined at bedside. Reports mild tenderness to left thigh. No new or acute complaints or symptoms at this time. Significiant reduction and resolution of eythema of the left thigh with mild erythema of the left scin. Wound is with bandage, clean, dry and without discharge. Patient's heart rate between 80-90 and stable. Denies fever, chills, dizziness, headache, chest pain, shortness of breath, abdominal pain, dysuria, difficulty with urination, or constipation. Last bowel movement this morning. Patient is stable and ready for discharge and questions where answered at bedside Septic shock (R65.21)/Sepsis (A41.9): Cellulitis of left leg (L03.116): On Admission: Chest x-ray demonstrated atelectasis and CT abdomen/pelvis without infectious etiology, presence of existing nephrolithiasis. Blood cultures negative. (04/07) CT of left lower extremity did not demonstrate osteomyelitis, abscess, or gas formation concerning of necrotizing fasciitis. (04/08) Chest x-ray unchanged from previous imaging on admission, bibasilar atelectasis notes. Likely allergic process going on. Consulted with Infectious Diseases today. Patient received 5 days of IV cefazolin 2g every 8 hours, 4 total days of Vancomycin/Zosyn, and one day cephalexin during his total 10 day hospital course. Cellulitis significant improvement with reduced erythema, no erythema noted on posterior and anterior left thigh. Mild tenderness to palpation and mild erythema of the left lopez. Discussed antibiotic continuation with ID, given 10 total days of antibiotics with significant improvement, antibiotics were discontinued and not recommended for discharge. 04/15 - Improved cellulitis, no leukocytosis, afebrile, negative blood cultures, and no new symptoms or acute complaints at this time. Reports mild tenderness. - ID consulted this morning. Discontinue antibiotics - Continue wound care changes - Patient is stable and ready for discharge to rehab Increased frequency of micturition (R35.0) Complains of increased frequency, urination every 30 mins to every 2 hours. - No dysuria, fever, chills or flank pain. No suprapubic tenderness. - UA bland, without evidence of infection. Shortness of breath (R06.02): resolved Lungs sounded clear bilaterally today 04/15. Mild cough at times. No wheezing currently. Encourage Incentive Spirometry. - Continue Fluticasone 1 spray twice daily - Continue Zyrtec 10 mg daily Atrial fibrillation (I48.91): Heart rate stable between 80 and 90 bpm - Continue Metoprolol 75 mg twice daily. - Continue Eliquis 5 mg twice daily PCP Follow-Up/Heads-Up Patient experienced atrial fibrillation with RVR will admitted with recurrent heart rate elevations. Metoprolol was increased will need outpatient follow- up regarding chronic atrial fibrillation. Discharge Disposition Discharge Disposition: Detention Facility/Rehab /es/ TODD DANIELS RN REGISTERED NURSE Signed: 04/22/2024 10:09 Receipt Acknowledged By: 04/22/2024 15:04 /kasia/ LENORA DEJESUS MD PHYSICIAN TODD DANIELS ([facility])
--- OUTSIDE RECORDS SUMMARY | 2024-08-07 12:23 | XMS_ITS ---
Author Name [facility] [place] Address [address] [place] [address] Care Team Providers Care Acetylene Torch Solderer Name Role Phone LENORA DEJESUS Primary Care [...] Jul 31, 2014 MEDICAR E SUPPLEM E [id number] [phone] FR GAMALIEL KAY PATIENT [facility] MEDICARE SUPPLEMEN EVANGELISTA MEDIC ARE SUPP Jul 31, 2014 SUPP [id number] [phone] FR GAMALIEL KAY PATIENT MEDICARE (WNR) MEDICARE (M) PART A Jan 29, 2004 PART A [id number] [phone] FR GAMALIEL KAY PATIENT MEDICARE (WNR) MEDICARE (M) PART B Jan 29, 2004 PART B [id number] [phone] FR GAMALIEL KAY PATIENT [facility] (WNR) MEDICARE ADVANTAGE [facility] ([facility]) Jul 31, 2023 [id number] GAMALIEL MACHADO PATIENT [facility] MCR (WNR) MEDICARE ADVANTAGE MCR (WNR) Jul 31, 2023 [id number] [id number] FR GAMALIEL KAY PATIENT Selected Encounter This section includes the information on record at [place] for the Encounter. Date/Time Encounter Type Encounter Description Reason Pro vider Source Feb 09, 2024 12:00 AM Outpatient Encounter EVENT (HISTORICAL) IHE Encounter Template Text not used by [place] Plan of Treatment: Future Appointments (+ 6 months) and Future Tests (+/- 45 days) The Plan of Treatment section includes future care activities for the patient from all [place] treatmentfacilities. This section includes future appointments and future orders which are active, pending or scheduled. Future Appointments This section includes appointments that were scheduled to occur 6 months from the date of the Encounter, up to a maximum of 20 appointments. The data comes from all [place] treatment facilities. Appointment Date/Time Appointment Type Appointme nt Facility Name Mar 27, 2024 01:00 PM [facility]) Apr 04, 2024 08:00 AM AMBULATORY - MEDICINE [facility] [place] [facility] May 15, 2024 02:00 PM [facility] ([facility]) Jun 12, 2024 11:00 AM [facility] ([facility]) Jun 19, 2024 01:00 PM AMBULATORY - MEDICINE [facility] [facility] Jun 25, 2024 02:30 PM AMBULATORY - MEDICINE [facility] [place] [facility] Jul 30, 2024 03:30 PM [facility] ([facility]) Aug 07, 2024 01:00 PM AMBULATORY MEDICINE [facility] [place] [facility] Encounter Notes: All associated encounter notes This section contains the clinical notes associated to the Encounter. Date/Time Encounter Note(s) Provider Source Feb 09, 2024 12:00 AM NONVA CONSULT: LOCAL TITLE: COMMUNITY CARE-CONSULT RESULT NOTE STANDARD TITLE: NONVA CONSULT DATE OF NOTE: FEB 09, 2024 ENTRY DATE: APR 12, 2024@08:27:18 AUTHOR: THANH MARCELO EXP COSIGNER: URGENCY: STATUS: COMPLETED [employer] - Scanned Document SCANNED DOCUMENT SIGNATURE NOT REQUIRED Electronically Filed: 04/12/2024 by: THANH CARTER [facility]
--- OUTSIDE RECORDS SUMMARY | 2024-08-07 12:23 | XMS_ITS ---
Author Name [facility] [place] Address [address] [place] [address] Care Team Providers Care Dry Box Tender Name Role Phone LENORA DEJESUS Primary Care [...] Jul 31, 2014 MEDICAR E SUPPLEM E [id number] [phone] FR GAMALIEL KAY PATIENT [facility] MEDICARE SUPPLEMEN EVANGELISTA MEDIC ARE SUPP Jul 31, 2014 SUPP [id number] [phone] FR GAMALIEL KAY PATIENT MEDICARE (WNR) MEDICARE (M) PART A Jan 29, 2004 PART A [id number] [phone] FR GAMALIEL KAY PATIENT MEDICARE (WNR) MEDICARE (M) PART B Jan 29, 2004 PART B [id number] [phone] FR GAMALIEL KAY PATIENT [facility] (WNR) MEDICARE ADVANTAGE [facility] ([place]) Jul 31, 2023 [id number] [phone] FR GAMALIEL KAY PATIENT [facility] MCR (WNR) MEDICARE ADVANTAGE MCR (WNR) Jul 31, 2023 [id number] [phone] FR GAMALIEL KAY PATIENT Selected Encounter This section includes the information on record at [place] for the Encounter. Date/Time Encounter Type Encounter Description Reason Pro vider Source Apr 09, 2024 10:08 AM Outpatient Encounter COMMUNITY CARE CONSULT IHE [...] 15, 2024 02:00 PM AMBULATORY - MEDICINE [facility] ([facility]) Jun 12, 2024 11:00 AM AMBULATORY - MEDICINE [facility] ([facility]) Jun 19, 2024 01:00 PM AMBULATORY - [place]ICINE [place] [facility] Jun 25, 2024 02:30 PM AMBULATORY - MEDICINE [place] [facility] Jul 30, 2024 03:30 PM AMBULATORY - MEDICINE [facility] ([facility]) Aug 07, 2024 01:00 PM AMBULATORY - MEDICINE [place] [facility] Aug 14, 2024 10:00 AM AMBULATORY - NONE [place] [facility] Sep 02, 2024 03:30 PM AMBULATORY - MEDICINE [place] [facility] Sep 18, 2024 11:00 AM AMBULATORY - MEDICINE [facility] ([facility]) Oct 07, 2024 02:30 PM AMBULATORY - MEDICINE [place] [facility] Lab Results: +/- 30 days [...] Range Comment Mar 20, 2024 11:40 AM [place] ([facility]) MICROALBUMIN CREATININE RATIO PANEL Specimen Type: URINE No comment entered. Ordering Provider: FLYNN DEJESUS Report Released Date/Time: Mar 11, 2024 11:36 AM Reporting Lab: [address] [phone] Performing Lab: [address] [address] MICROALBUMIN/C REATININE RATIO 13.3 mg/g 0-29.9 MICROALBUMIN,Q UANTITATIVE 2.0 mg/dL RR UNAVAIL CREATININE URINE 150.03 mg/dL Mar 20, 2024 11:40 AM [place] ([facility]) URINALYSIS Specimen Type: URINE Comment: If Glucose = >500 and Ketones are positive, please alert the Physician. Ordering Provider: FLYNN DEJESUS Report Released Date/Time: Mar 11, 2024 11:36 AM Reporting Lab: [address] [address] Performing Lab: [address] [address] UA COLOR Yellow Yellow UA APPEARANCE Clear Clear UA GLUCOSE Normal mg/dL Negative UA KETONES NEGATIVE mg/dL Negative UA BLOOD NEGATIVE mg/dL Negative UA PROTEIN 10 mg/dL Negative UA NITRITE NEGATIVE mg/dL Negative UA BILIRUBIN NEGATIVE mg/dL Negative UA SPECIFIC GRAVITY 1.023 H 1.016-1.02 2 UA pH 6.0 5.0-9.0 UA UROBILINOGEN Normal mg/dL <2.0 UA LEUKOCYTE SMALL Negative Mar 20, 2024 11:40 AM [place] ([facility]) MICROSCOPIC AUTOMATED, URINE Specimen Type: URINE Comment: If Glucose = >500 and Ketones are positive, please alert the Physician. Ordering Provider: FLYNN DEJESUS Report Released Date/Time: Mar 11, 2024 11:36 AM Reporting Lab: [address] [address] Performing Lab: [address] [address] UA WBC 6-10 /[HPF] H 0-5 UA MUCUS FEW /[LPF] Trace UA RBC 0-2 /[HPF] 0-3 UA SQUAMOUS EPITH FEW /[HPF] Mar 20, 2024 11:28 AM [place] ([facility]) VITAMIN B12 Specimen Type: SERUM No comment entered. Ordering Provider: FLYNN DEJESUS Report Released Date/Time: Mar 11, 2024 11:36 AM Reporting Lab: [facility] [address] [address] Performing Lab: [facility] [address] [address] VITAMIN B12 386 pg/mL 200-900 Mar 20, 2024 11:28 AM [place] ([facility]) VITAMIN D (25-OH) Specimen Type: SERUM No comment entered. Ordering Provider: FLYNN DEJESUS Report Released Date/Time: Mar 11, 2024 11:36 AM Reporting Lab: [facility] [address] [address] Performing Lab: [facility] [address] [address] VITAMIN D (25-OH) 29 ng/mL 20-50 Mar 20, 2024 11:28 AM [place] ([facility]) TSH Specimen Type: SERUM No comment entered. Ordering Provider: FLYNN DEJESUS Report Released Date/Time: Mar 11, 2024 11:36 AM Reporting Lab: [address] [address] Performing Lab: [facility] [address] [address] TSH 1.56 u[IU]/mL 0.35-5.00 Mar 20, 2024 11:28 AM [place] ([facility]) LIPID PANEL, NON FASTING Specimen Type: SERUM No comment entered. Ordering Provider: FLYNN DEJESUS Report Released Date/Time: Mar 11, 2024 11:36 AM Reporting Lab: [address] [address] Performing Lab: [address] [place] [address] CHOLESTEROL 162 mg/dL TRIGLYCERIDE 115 mg/dL 0-150 LDL calculated 99 mg/dL 0-129 CHOL/HDL 4.1 HDL CHOLESTEROL 40 mg/dL 40-60 Mar 20, 2024 11:28 AM [place] ([facility]) LIVER FUNCTION Specimen Type: SERUM No comment entered. Ordering Provider: FLYNN DEJESUS Report Released Date/Time: Mar 11, 2024 11:36 AM Reporting Lab: [address] [address] Performing Lab: [place] [id number] PROTEIN,TOTAL 6.9 g/dL 6.0-8.3 ALBUMIN 3.5 g/dL 3.5-5.0 ALKALINE PHOSPHATASE 79 U/L 40-150 AST 14 U/L 5-34 ALT <6 U/L BILIRUBIN, TOTAL 0.5 mg/dL 0.2-1.2 Mar 20, 2024 11:28 AM [place] ([facility]) CBC AND DIFF (AUTO) Specimen Type: BLOOD No comment entered. Ordering Provider: FLYNN DEJESUS Report Released Date/Time: Mar 11, 2024 11:36 AM Reporting Lab: [address] [address] Performing Lab: [address] [address] WBC 6.97 10*3/uL 4.50-11.00 RBC 5.38 10*6/uL [...] 10*3/uL 0.00-0.00 Mar 20, 2024 11:27 AM [facility] HEMOGLOBIN A1C PANEL Specimen Type: BLOOD [...] Jan 30, 2024 01:20 PM Reporting Lab: [address] [address] Performing Lab: [address] [address] HEMOGLOBIN A1C 6.0 H 4.0-5.6 Mar 20, 2024 11:27 AM [facility] BASIC METABOLIC PANEL (non-fasting) Specimen Type: SERUM No comment entered. Ordering Provider: LORY CARPENTER Report Released Date/Time: Jan 30, 2024 01:20 PM Reporting Lab: [address] [address] Performing Lab: [address] [address] UREA NITROGEN 21 mg/dL 7-25 GLUCOSE 175 mg/dL H 65-100 SODIUM 139 mmol/L 135-145 POTASSIUM 4.0 mmol/L 3.5-5.0 CHLORIDE 104 mmol/L 100-110 CO2 25 meq/L 20-30 CREATININE, Serum 1.11 mg/dL 0.50-1.40 eGFR(CKD-EPI 2020) 67 mL/min >60 Encounter Notes: All associated encounter notes This section contains the clinical notes associated to the Encounter. Date/Time Encounter Note(s) Provider Source Apr 09, 2024 10:08 AM NONVA NOTE: LOCAL TITLE: COMMUNITY CARE-JONATHAN SELF PRESENTING CARE COORD PLAN STANDARD TITLE: NONVA NOTE DATE OF NOTE: APR 09, 2024@10:08 ENTRY DATE: APR 09, 2024@10:08:55 AUTHOR: NNAMDI SADLER EXP COSIGNER: URGENCY: STATUS: COMPLETED COMMUNITY CARE-JONATHAN SELF PRESENTING CARE COORD PLAN NOTE Has ADDENDA Emergency Notification Intake Date Presenting to the Facility: Mar Method of Contact: Notified from [employer] worklist Notification ID: [id number] [facility] Referral #: [id number] [facility] Name: Hospital: [facility] Address: City: [place] State: [place] Zip Code: Phone : [facility] Point of Contact: Name: Bonny Phone: Chief complaint: A41.9 L03.116 Primary Diagnosis: Disposition Admitted Route of Admission: ER Date of Admission: Mar Admitting Diagnosis: A41.9 L03.116 Community Care Provider: Sree Level of Care: /daphney MEJIAS Signed: 04/09/2024 10:10 Receipt Acknowledged By: 04/09/2024 10:15 /es/ TODD DANIELS RN REGISTERED NURSE 04/09/2024 12:30 /es/ LENORA DEJESUS MD PHYSICIAN 04/12/2024 14:01 /es/ BRADFORD MORENO Registered Nurse Fabrication Operator 04/16/2024 ADDENDUM STATUS: COMPLETED Discharge Disposition Date of discharge: Mar Name of Contact:[facility] Disposition Discharge to [facility] Facility Comment: Yair Barbosa Aldo Episode of Care Complete went to [facility] using own private insurance /kasia/ Dulce Maria CHU,RN,[facility] TRANSFER/TRAVELING COORDINATOR Signed: 04/16/2024 13:03 05/09/2024 ADDENDUM STATUS: COMPLETED Discharge Disposition Date of discharge: Mar Name of Contact:[facility] Disposition Discharge to [facility] Facility Comment: Yair Carlson using own private insurance Episode of Care Complete /es/ Dulce Maria Johnson MSN,RN,[facility] TRANSFER/TRAVELING COORDINATOR Signed: 05/09/2024 17:19 [facility]
--- OUTSIDE RECORDS SUMMARY | 2024-08-07 12:23 | XMS_ITS | Encounter Summary ---
Author Name [facility] [place] Organization [facility] [place] Address [address] [place] [address] Care Team Providers Care Mini Baccarat Dealer Name Role Phone LENORA DEJESUS Primary Care [...] Jul 31, 2014 MEDICAR E SUPPLEM E [id number] [phone] FR GAMALIEL KAY PATIENT [facility] MEDICARE SUPPLEMEN EVANGELISTA MEDIC ARE SUPP Jul 31, 2014 SUPP [id number] [phone] FR GAMALIEL KAY PATIENT MEDICARE (WNR) MEDICARE (M) PART A Jan 29, 2004 PART A [id number] [phone] FR GAMALIEL KAY PATIENT MEDICARE (WNR) MEDICARE (M) PART B Jan 29, 2004 PART B [id number] [phone] FR GAMALIEL KAY PATIENT [facility] (WNR) MEDICARE ADVANTAGE [facility]) Jul 31, 2023 [id number] [phone] FR GAMALIEL KAY PATIENT [facility] MCR (WNR) MEDICARE ADVANTAGE MCR (WNR) Jul 31, 2023 [id number] [phone] FR GAMALIEL KAY PATIENT Selected Encounter This section includes the information on record at [place] for the Encounter. Date/Time Encounter Type Encounter Description Reason Pro vider Source Apr 30, 2024 11:50 AM Outpatient Encounter ADMIN PAT ACTIVTIES (MASNONCT) IHE Encounter Template Text not used by [place] Plan of Treatment: Future Appointments (+ 6 months) and Future Tests (+/- 45 days) The Plan of Treatment section includes future care activities for the patient from all [place] [facility]. This section includes future appointments and future [...] 15, 2024 02:00 PM [facility] Jun 12, 2024 11:00 AM AMBULATORY - MEDICINE [facility]) Jun 19, 2024 01:00 PM AM[place]ULATORY [place]ICINE [place] [facility] Jun 25, 2024 02:30 PM AMBULATORY - MEDICINE [place] [facility] [facility] Jul 30, 2024 03:30 PM [facility]ULATORY - MEDICINE [facility]) Aug 07, 2024 01:00 PM AMBULATORY - MEDICINE [place] [facility] [place] [facility] Aug 14, 2024 10:00 AM AMBULATORY - NONE [place] [facility] [facility] Sep 02, 2024 03:30 PM AMBULATORY - MEDICINE [place] [facility] [facility] Sep 18, 2024 11:00 AM AMBULATORY - MEDICINE [facility]) Oct 07, 2024 02:30 PM AMBULATORY - MEDICINE [place] [facility] [facility] Active, Pending, and Scheduled Orders This section [...] 04:42 PM Consult Order COMMUNITY CARE-WOUND Cons Director Of Government Sales's Moe EWEN ([facility]) Encounter Notes: All associated encounter notes This section contains the clinical notes associated to the Encounter. Date/Time Encounter Note(s) Provider Source Apr 30, 2024 11:50 AM ADMINISTRATIVE NOT E: LOCAL TITLE: CCC: SCHEDULING ADMINISTRATION STANDARD TITLE: ADMINISTRATIVE NOTE DATE OF NOTE: APR 30, 2024@11:50:10 ENTRY DATE: APR 30, 2024@11:50:11 AUTHOR: WALDO GREEN COSIGNER: URGENCY: STATUS: COMPLETED Patient Demographics Patient Name: MUKUL KAY Patient Primary Phone: [phone] Patient Primary Address: [address] [place] [address] Patient : 1940 Patient Age: 83 Caller/Recipient Relation to Patient: Self Administrative Administrative Note Reason: Home Health / [facility] Administrative Note Comments: Vet calling to give Pact a heads up on his condition and whereabouts. Cisco was in the hospital after left leg wound infection. Cisco is now at [facility] room number# [phone] - . Cisco has a cold and is coughing a lot. Cisco is interested in getting home care once he gets back home. IMPORTANT: This note was created by [facility] Clinical Contact Center staff. Please do not alert the staff member by adding them as a signer for future communications. Alerts are not monitored by this user. /kasia/ WALDO GREEN VISN 1 MOLINA AMSA Signed: 04/30/2024 11:50 Receipt Acknowledged By: 04/30/2024 12:47 /es/ TODD DANIELS, RN REGISTERED NURSE 04/30/2024 12:57 /es/ CHRISTOPHER COLLINS LPN LICENSED PRACTICAL NURSE WALDO GREEN [facility]
--- OUTSIDE RECORDS SUMMARY | 2024-08-07 12:24 | XMS_ITS ---
Author Name [place] Address [address] [place] [address] Care Team Providers Care Tectonophysicist Name Role Phone LENORA DEJESUS Primary Care [...] Jul 31, 2014 MEDICAR E SUPPLEM E [id number] [phone] FR GAMALIEL KAY PATIENT [facility] MEDICARE SUPPLEMEN EVANGELISTA MEDIC ARE SUPP Jul 31, 2014 SUPP [id number] [phone] FR GAMALIEL KAY PATIENT MEDICARE (WNR) MEDICARE (M) PART A Jan 29, 2004 PART A [id number] [phone] FR GAMALIEL KAY PATIENT MEDICARE (WNR) MEDICARE (M) PART B Jan 29, 2004 PART B [id number] [phone] FR GAMALIEL KAY PATIENT [facility] (WNR) MEDICARE ADVANTAGE [facility] ([facility]) Jul 31, 2023 [id number] [phone] FR GAMALIEL KAY PATIENT [facility]CR (WNR) MEDICARE ADVANTAGE MCR (WNR) Jul 31, 2023 [id number] [phone] FR GAMALIEL KAY PATIENT Selected Encounter This section includes the information on record at [place] for the Encounter. Date/Time Encounter Type Encounter Description Reason Pro vider Source Apr 04, 2024 12:00 AM Outpatient Encounter EVENT [...] 2024 02:00 PM AMBULATORY - MEDICINE [facility] ([facility]) Jun 12, 2024 11:00 AM AMBULATORY - MEDICINE [facility] ([facility]) Jun 19, 2024 01:00 PM AMBULATORY - MEDICINE [place] [facility] Jun 25, 2024 02:30 PM AMBULATORY - MEDICINE [place] [facility] [place] [facility] Jul 30, 2024 03:30 PM AMBULATORY - MEDICINE [facility] ([facility]) Aug 07, 2024 01:00 PM AMBULATORY - MEDICINE [place] [facility] [place] [facility] Aug 14, 2024 10:00 AM AMBULATORY - NONE [place] [facility] [place] [facility] Sep 02, 2024 03:30 PM AMBULATORY - MEDICINE [place] [facility] [place] [facility] Sep 18, 2024 11:00 AM AMBULATORY - MEDICINE [facility] ([facility]) Lab Results: +/- 30 days of [...] Range Comment Mar 20, 2024 11:40 AM [facility] ([facility]) MICROALBUMIN CREATININE RATIO PANEL Specimen Type: URINE No comment entered. Ordering Provider: FLYNN DEJESUS Report Released Date/Time: Mar 11, 2024 11:36 AM Reporting Lab: [address] [address] Performing Lab: [address] [address] MICROALBUMIN/C REATININE RATIO 13.3 mg/g 0-29.9 MICROALBUMIN,Q UANTITATIVE 2.0 mg/dL RR UNAVAIL CREATININE URINE 150.03 mg/dL Mar 20, 2024 11:40 AM [facility] ([facility]) URINALYSIS Specimen Type: URINE Comment: If Glucose = >500 and Ketones are positive, please alert the Physician. Ordering Provider: FLYNN DEJESUS Report Released Date/Time: Mar 11, 2024 11:36 AM Reporting Lab: [address] [address] Performing Lab: [address] [address] UA COLOR Yellow Yellow UA APPEARANCE Clear Clear UA GLUCOSE Normal mg/dL Negative UA KETONES NEGATIVE mg/dL Negative UA BLOOD NEGATIVE mg/dL Negative UA PROTEIN 10 mg/dL Negative UA NITRITE NEGATIVE mg/dL Negative UA BILIRUBIN NEGATIVE mg/dL Negative UA SPECIFIC GRAVITY 1.023 H 1.016-1.02 2 UA pH 6.0 5.0-9.0 UA UROBILINOGEN Normal mg/dL <2.0 UA LEUKOCYTE SMALL Negative Mar 20, 2024 11:40 AM [facility] ([facility]) MICROSCOPIC AUTOMATED, URINE Specimen Type: URINE Comment: If Glucose = >500 and Ketones are positive, please alert the Physician. Ordering Provider: FLYNN DEJESUS Report Released Date/Time: Mar 11, 2024 11:36 AM Reporting Lab: [address] [address] Performing Lab: [address] [address] UA WBC 6-10 /[HPF] H 0-5 UA MUCUS FEW /[LPF] Trace UA RBC 0-2 /[HPF] 0-3 UA SQUAMOUS EPITH FEW /[HPF] Mar 20, 2024 11:28 AM [facility] ([facility]) VITAMIN B12 Specimen Type: SERUM No comment entered. Ordering Provider: FLYNN DEJESUS Report Released Date/Time: Mar 11, 2024 11:36 AM Reporting Lab: [address] [address] Performing Lab: [address] [address] VITAMIN B12 386 pg/mL 200-900 Mar 20, 2024 11:28 AM [facility] ([facility]) VITAMIN D (25-OH) Specimen Type: SERUM No comment entered. Ordering Provider: FLYNN DEJESUS Report Released Date/Time: Mar 11, 2024 11:36 AM Reporting Lab: [address] [address] Performing Lab: [address] [address] VITAMIN D (25-OH) 29 ng/mL 20-50 Mar 20, 2024 11:28 AM [facility] ([facility]) TSH Specimen Type: SERUM No comment entered. Ordering Provider: FLYNN DEJESUS Report Released Date/Time: Mar 11, 2024 11:36 AM Reporting Lab: [address] [address] Performing Lab: [address] [address] TSH 1.56 u[IU]/mL 0.35-5.00 Mar 20, 2024 11:28 AM [facility] ([facility]) LIVER FUNCTION Specimen Type: SERUM No comment entered. Ordering Provider: FLYNN DEJESUS Report Released Date/Time: Mar 11, 2024 11:36 AM Reporting Lab: [address] [address] Performing Lab: [address] [address] PROTEIN,TOTAL 6.9 g/dL 6.0-8.3 ALBUMIN 3.5 g/dL 3.5-5.0 ALKALINE PHOSPHATASE 79 U/L 40-150 AST 14 U/L 5-34 ALT <6 U/L BILIRUBIN, TOTAL 0.5 mg/dL 0.2-1.2 Mar 20, 2024 11:28 AM [facility] ([facility]) LIPID PANEL, NON FASTING Specimen Type: SERUM No comment entered. Ordering Provider: FLYNN DEJESUS Report Released Date/Time: Mar 11, 2024 11:36 AM Reporting Lab: [address] [address] Performing Lab: [address] [address] CHOLESTEROL 162 mg/dL TRIGLYCERIDE 115 mg/dL 0-150 LDL calculated 99 mg/dL 0-129 CHOL/HDL 4.1 HDL CHOLESTEROL 40 mg/dL 40-60 Mar 20, 2024 11:28 AM [facility] ([facility]) CBC AND DIFF (AUTO) Specimen Type: BLOOD No comment entered. Ordering Provider: FLYNN DEJESUS Report Released Date/Time: Mar 11, 2024 11:36 AM Reporting Lab: [address] [address] Performing Lab: [address] [address] WBC 6.97 10*3/uL 4.50-11.00 RBC 5.38 10*6/uL [...] 0.00-0.00 Mar 20, 2024 11:27 AM [facility] HEMOGLOBIN A1C PANEL Specimen Type: BLOOD Comment: [...] Jan 30, 2024 01:20 PM Reporting Lab: [address] [address] Performing Lab: [address] [address] HEMOGLOBIN A1C 6.0 H 4.0-5.6 Mar 20, 2024 11:27 AM [facility] BASIC METABOLIC PANEL (non-fasting) Specimen Type: SERUM No comment entered. Ordering Provider: LORY CARPENTER Report Released Date/Time: Jan 30, 2024 01:20 PM Reporting Lab: [address] [address] Performing Lab: [address] [address] UREA NITROGEN 21 mg/dL 7-25 GLUCOSE 175 mg/dL H 65-100 SODIUM 139 mmol/L 135-145 POTASSIUM 4.0 mmol/L 3.5-5.0 CHLORIDE 104 mmol/L 100-110 CO2 25 meq/L 20-30 CREATININE, Serum 1.11 mg/dL 0.50-1.40 eGFR(CKD-EPI 2020) 67 mL/min >60 Encounter Notes: All associated encounter notes This section contains the clinical notes associated to the Encounter. Date/Time Encounter Note(s) Provider Source Apr 04, 2024 12:00 AM NONVA NOTE: LOCAL TITLE: NON-VA OUTPATIENT NOTES STANDARD TITLE: NONVA NOTE DATE OF NOTE: APR 04, 2024 ENTRY DATE: JUN 03, 2024@14:43:24 AUTHOR: MIK LOPEZ EXP COSIGNER: URGENCY: STATUS: COMPLETED VistA Imaging - Scanned Document SCANNED DOCUMENT SIGNATURE NOT REQUIRED Electronically Filed: 06/03/2024 by: MIK PISANO [place] [facility]
--- OUTSIDE RECORDS SUMMARY | 2024-08-07 12:24 | XMS_ITS | Encounter Summary ---
Author Name [place] Address [address] [place] [address] Care Team Providers Care Gaming Cage Worker Name Role Phone LENORA DEJESUS Primary Care [...] Jul 31, 2014 MEDICAR E SUPPLEM E [id number] [phone] FR GAMALIEL KAY PATIENT [facility] MEDICARE SUPPLEMEN EVANGELISTA MEDIC ARE SUPP Jul 31, 2014 SUPP [id number] [phone] FR GAMALIEL KAY PATIENT MEDICARE (WNR) MEDICARE (M) PART A Jan 29, 2004 PART A [id number] [phone] FR GAMALIEL KAY PATIENT MEDICARE (WNR) MEDICARE (M) PART B Jan 29, 2004 PART B [id number] [phone] FR GAMALIEL KAY PATIENT [facility] (WNR) MEDICARE ADVANTAGE [facility] ([facility]) Jul 31, 2023 [id number] [phone] FR GAMALIEL KAY PATIENT [facility] MCR (WNR) MEDICARE ADVANTAGE MCR (WNR) Jul 31, 2023 [id number] [phone] FR GAMALIEL KAY PATIENT Selected Encounter This section includes the information on record at [place] for the Encounter. Date/Time Encounter Type Encounter Description Reason Pro vider Source Apr 05, 2024 12:00 AM Outpatient Encounter EVENT [...] 15, 2024 02:00 PM AMBULATORY - MEDICINE [facility] ([facility]) Jun 12, 2024 11:00 AM AMBULATORY - MEDICINE [facility] ([facility]) Jun 19, 2024 01:00 PM AMBULATORY - MEDICINE [place] [facility] [facility] Jun 25, 2024 02:30 PM AMBULATORY - MEDICINE [place] [facility] [facility] Jul 30, 2024 03:30 PM AMBULATORY - MEDICINE [facility] ([facility]) Aug 07, 2024 01:00 PM AMBULATORY - MEDICINE [place] [facility] [place] [facility] Aug 14, 2024 10:00 AM AMBULATORY - NONE [place] [facility] [facility] Sep 02, 2024 03:30 PM AMBULATORY - MEDICINE [place] [facility] [facility] Sep 18, 2024 11:00 AM AMBULATORY - MEDICINE [facility] ([facility]) Lab Results: +/- 30 days of the [...] Range Comment Mar 20, 2024 11:40 AM [place] ([facility]) MICROALBUMIN CREATININE RATIO PANEL Specimen Type: URINE No comment entered. Ordering Provider: FLYNN DEJESUS Report Released Date/Time: Mar 11, 2024 11:36 AM Reporting Lab: [address] [address] Performing Lab: [address] [address] MICROALBUMIN/C REATININE RATIO 13.3 mg/g 0-29.9 MICROALBUMIN,Q UANTITATIVE 2.0 mg/dL RR UNAVAIL CREATININE URINE 150.03 mg/dL Mar 20, 2024 11:40 AM [place] ([facility]) URINALYSIS Specimen Type: URINE Comment: If Glucose = >500 and Ketones are positive, please alert the Physician. Ordering Provider: FLYNN DEJESUS Report Released Date/Time: Mar 11, 2024 11:36 AM Reporting Lab: [address] [address] Performing Lab: [address] [address] UA COLOR Yellow Yellow UA APPEARANCE Clear Clear UA GLUCOSE Normal mg/dL Negative UA KETONES NEGATIVE mg/dL Negative UA BLOOD NEGATIVE mg/dL Negative UA PROTEIN 10 mg/dL Negative UA NITRITE NEGATIVE mg/dL Negative UA BILIRUBIN NEGATIVE mg/dL Negative UA SPECIFIC GRAVITY 1.023 H 1.016-1.02 2 UA pH 6.0 5.0-9.0 UA UROBILINOGEN Normal mg/dL <2.0 UA LEUKOCYTE SMALL Negative Mar 20, 2024 11:40 AM [place] ([facility]) MICROSCOPIC AUTOMATED, URINE Specimen Type: URINE Comment: If Glucose = >500 and Ketones are positive, please alert the Physician. Ordering Provider: FLYNN DEJESUS Report Released Date/Time: Mar 11, 2024 11:36 AM Reporting Lab: [address] [address] Performing Lab: [address] [address] UA WBC 6-10 /[HPF] H 0-5 UA MUCUS FEW /[LPF] Trace UA RBC 0-2 /[HPF] 0-3 UA SQUAMOUS EPITH FEW /[HPF] Mar 20, 2024 11:28 AM [facility] ([facility]) VITAMIN D (25-OH) Specimen Type: SERUM No comment entered. Ordering Provider: FLYNN DEJESUS Report Released Date/Time: Mar 11, 2024 11:36 AM Reporting Lab: [facility] [address] [address] Performing Lab: [facility] [address] [address] VITAMIN D (25-OH) 29 ng/mL 20-50 Mar 20, 2024 11:28 AM [place] ([facility]) VITAMIN B12 Specimen Type: SERUM No comment entered. Ordering Provider: FLYNN DEJESUS Report Released Date/Time: Mar 11, 2024 11:36 AM Reporting Lab: [address] [address] Performing Lab: [address] [address] VITAMIN B12 386 pg/mL 200-900 Mar 20, 2024 11:28 AM [place] ([facility]) TSH Specimen Type: SERUM No comment entered. Ordering Provider: FLYNN DEJESUS Report Released Date/Time: Mar 11, 2024 11:36 AM Reporting Lab: [address] [address] Performing Lab: [facility] [address] [address] TSH 1.56 u[IU]/mL 0.35-5.00 Mar 20, 2024 11:28 AM [place] ([facility]) LIVER FUNCTION Specimen Type: SERUM No comment entered. Ordering Provider: FLYNN DEJESUS Report Released Date/Time: Mar 11, 2024 11:36 AM Reporting Lab: [facility] [address] [address] Performing Lab: [address] [address] PROTEIN,TOTAL 6.9 g/dL 6.0-8.3 ALBUMIN 3.5 g/dL 3.5-5.0 ALKALINE PHOSPHATASE 79 U/L 40-150 AST 14 U/L 5-34 ALT <6 U/L BILIRUBIN, TOTAL 0.5 mg/dL 0.2-1.2 Mar 20, 2024 11:28 AM [facility] ([facility]) LIPID PANEL, NON FASTING Specimen Type: SERUM No comment entered. Ordering Provider: FLYNN DEJESUS Report Released Date/Time: Mar 11, 2024 11:36 AM Reporting Lab: [address] [address] Performing Lab: [address] [address] CHOLESTEROL 162 mg/dL TRIGLYCERIDE 115 mg/dL 0-150 LDL calculated 99 mg/dL 0-129 CHOL/HDL 4.1 HDL CHOLESTEROL 40 mg/dL 40-60 Mar 20, 2024 11:28 AM [facility] ([facility]) CBC AND DIFF (AUTO) Specimen Type: BLOOD No comment entered. Ordering Provider: FLYNN DEJESUS Report Released Date/Time: Mar 11, 2024 11:36 AM Reporting Lab: [address] [address] Performing Lab: [address] [address] WBC 6.97 10*3/uL 4.50-11.00 RBC 5.38 10*6/uL [...] Jan 30, 2024 01:20 PM Reporting Lab: [address] [address] Performing Lab: [address] [address] HEMOGLOBIN A1C 6.0 H 4.0-5.6 Mar 20, 2024 11:27 AM [facility] BASIC METABOLIC PANEL (non-fasting) Specimen Type: SERUM No comment entered. Ordering Provider: LORY CARPENTER Report Released Date/Time: Jan 30, 2024 01:20 PM Reporting Lab: [address] [address] Performing Lab: [address] [address] UREA NITROGEN 21 mg/dL 7-25 GLUCOSE 175 mg/dL H 65-100 SODIUM 139 mmol/L 135-145 POTASSIUM 4.0 mmol/L 3.5-5.0 CHLORIDE 104 mmol/L 100-110 CO2 25 meq/L 20-30 CREATININE, Serum 1.11 mg/dL 0.50-1.40 eGFR(CKD-EPI 2020) 67 mL/min >60 Encounter Notes: All associated encounter notes This section contains the clinical notes associated to the Encounter. Date/Time Encounter Note(s) Provider Source Apr 05, 2024 12:00 AM NONVA NOTE: LOCAL TITLE: NON-[facility] STANDARD TITLE: NONVA NOTE DATE OF NOTE: APR 05, 2024 ENTRY DATE: MAY 21, 2024@16:44:55 AUTHOR: ESE CLANCY EXP COSIGNER: URGENCY: STATUS: COMPLETED VistA Imaging - Scanned Document SCANNED DOCUMENT SIGNATURE NOT REQUIRED Electronically Filed: 05/21/2024 by: ESE DOE [facility]
--- OUTSIDE RECORDS SUMMARY | 2024-08-07 12:24 | XMS_ITS | Encounter Summary ---
Author Name [place] Address [address] [place] [address] Care Team Providers Care Waste Machine Tender Name Role Phone LENORA DEJESUS Primary [...] Jul 31, 2014 MEDICAR E SUPPLEM E [id number] [phone] FR GAMALIEL KAY PATIENT [facility] MEDICARE SUPPLEMEN EVANGELISTA MEDIC ARE SUPP Jul 31, 2014 SUPP [id number] [phone] FR GAMALIEL KAY PATIENT MEDICARE (WNR) MEDICARE ([place]) PART A Jan 29, 2004 PART A [id number] [phone] FR GAMALIEL KAY PATIENT MEDICARE (WNR) MEDICARE (M) PART B Jan 29, 2004 PART B [id number] [phone] FR GAMALIEL KAY PATIENT [facility] (WNR) MEDICARE ADVANTAGE [facility] Jul 31, 2023 [id number] [phone] FR GAMALIEL KAY PATIENT [facility] (WNR) MEDICARE ADVANTAGE [facility] (WNR) Jul 31, 2023 [id number] [phone] FR GAMALIEL KAY PATIENT Selected Encounter This section includes the information on record at [place] for the Encounter. Date/Time Encounter Type Encounter Description Reason Provider Source Jun 13, 2024 10:22 AM PRO PHONE CALL 11-20 MIN TELEPHONE CASE MANAGEMENT ICD-10-CM Z71.9 Counseling, unspecified MORA GIFFORD Mitzi Encounter Template Text not used by [place] Assessments - Encounter Diagnoses This section includes the primary and secondary diagnoses documented for the Encounter. Date/Time Primary/Secondary Diagnosis Diagnosis Name Provider Source Jun 13, 2024 10:22 AM PRIMARY Counseling, unspecified MORA GIFFORD ([facility]) Plan of Treatment: Future Appointments (+ [...] Appointment Type Appointme nt Facility Name Jun 19, 2024 01:00 PM [place]ATORY [place]IC[place] [facility] [facility] Jun 25, 2024 02:30 PM [place] [facility] [facility] Jul 30, 2024 03:30 PM AMBULATORY - MEDICINE [facility] ([facility]) Aug 07, 2024 01:00 PM AMBULATORY [place]ICINE [place] [facility] Aug 14, 2024 10:00 AM AMBULATORY - NONE [place] [facility] [facility] Sep 02, 2024 03:30 PM [place]ORY [place] [facility] Sep 18, 2024 11:00 AM AMBULATORY - MEDICINE [facility] ([facility]) Oct 07, 2024 02:30 PM AMBULATORY [place]ICINE [place] [facility] [facility] Active, Pending, and Scheduled Orders [...] 04:42 PM Consult Order COMMUNITY CARE-WOUND Cons Underground Utility Locator's Choice [facility] ([facility]) Jun 28, 2024 03:50 PM Consult Order PROSTHETIC S REQUEST Cons Underground Utility Locator's Choice [facility] ([facility]) Social History: Smoking Status [...] Encounter. Date/Time Encounter Note(s) Provider Source Jun 13, 2024 10:22 AM SOCIAL WORK NOTE: LOCAL TITLE: SOCIAL WORK NOTE STANDARD TITLE: SOCIAL WORK NOTE DATE OF NOTE: JUN 13, 2024@10:22 ENTRY DATE: JUN 13, 2024@10:23:04 AUTHOR: MORA GIFFORDIGNER: URGENCY: STATUS: COMPLETED SW reached out to to follow up around Holder's care needs. discussed that [employer] services are going well and that the town nurse is continuing to visit x1 week. discussed that his neighbor has been assisting with IADL needs such as grocery shopping and transportation to medical appointments. discussed that he is considering a live-in caregiver. Holder is also continuing to consider moving in with his family in [place] for a few weeks during the winter. Plan is for SW to follow up with to review care options as needed. /kasia/ OLU Vargas, [facility] Patient Registration Supervisor Signed: 06/13/2024 10:42 MORA GIFFORD ([facility])
--- OUTSIDE RECORDS SUMMARY | 2024-08-07 12:24 | XMS_ITS | Encounter Summary ---
Author Name [facility] [place] [facility] [place] Address [address] [place] [address] Care Team Providers Care Rolling Chair Pusher Name Role Phone LENORA DEJESUS Primary Care [...] Jul 31, 2014 MEDICAR E SUPPLEM E [id number] [phone] FR GAMALIEL KAY PATIENT [facility] MEDICARE SUPPLEMEN [facility] MEDIC ARE SUPP Jul 31, 2014 SUPP [id number] [phone] FR GAMALIEL KAY PATIENT MEDICARE (WNR) MEDICARE (M) PART A Jan 29, 2004 PART A [id number] [phone] FR GAMALIEL KAY PATIENT MEDICARE (WNR) MEDICARE (M) PART B Jan 29, 2004 PART B [id number] [phone] FR GAMALIEL KAY PATIENT [facility] (WNR) MEDICARE ADVANTAGE [id number] ([facility]) Jul 31, 2023 [id number] [phone] FR GAMALIEL KAY PATIENT [facility] MCR (WNR) MEDICARE ADVANTAGE MCR (WNR) Jul 31, 2023 [id number] [phone] FR GAMALIEL KAY PATIENT Selected Encounter This section includes the information on record at [place] for the Encounter. Date/Time Encounter Type Encounter Description Reason Pro vider Source Jul 08, 2024 09:46 AM Outpatient Encounter PRIMARY CARE/MEDICINE IHE Encounter Template Text not used by [place] Plan of Treatment: Future Appointments (+ 6 months) and Future Tests (+/- 45 days) The Plan of Treatment section includes future care activities for the patient from all [place] [facility]. This section includes future appointments and future orders which are active, pending or scheduled. Future Appointments This section includes appointments that were scheduled to occur 6 months from the date of the Encounter, up to a maximum of 20 appointments. The data comes from all [facility]. Appointment Date/Time Appointment Type Appointme nt Facility Name Jul 30, 2024 03:30 PM AMBULATORY - MEDICINE [facility] ([facility]) Aug 07, 2024 01:00 PM AMBULATORY - MEDICINE [facility] [place] [place] [facility] Aug 14, 2024 10:00 AM [facility] [place] [facility] Sep 02, 2024 03:30 PM AMBULATORY - MEDICINE [facility] [place] [facility] Sep 18, 2024 11:00 AM AMBULATORY - MEDICINE [facility] ([facility]) Oct 07, 2024 02:30 PM [facility] Active, Pending, and Scheduled Orders This section includes a listing of several types of active, pending, and scheduled orders, including clinic medications orders, diagnostic test orders, procedure orders and consult orders; where the start date of the order is 45 days before the date of the Encounter or 45 days after the date of theEncounter. The data comes from all [facility]. Test Date/Time Test Type Test Details Facility Name Jun 11, 2024 04:42 PM Consult Order COMMUNITY CARE-WOUND Cons [facility] [place] ([facility]) Jun 28, 2024 03:50 PM Consult Order PROSTHETIC S REQUEST Cons Structural [facility] ([facility]) Aug 02, 2024 02:01 PM Consult Order COMMUNITY CARE-OCCUPATIONAL THERAPY Cons [facility] [place] ([facility]) Aug 07, 2024 09:59 AM Laboratory - Chemi stry Order CBC AND DIFF (AUTO) BLOOD (LAV-BLOOD) [place] ([facility]) Aug 07, 2024 09:59 AM Laboratory - Chemi stry Order BASIC METABOLIC PANEL (non-fasting) BLOOD (SST-SERUM) [facility] ([facility]) Aug 07, 2024 09:59 AM Laboratory - Chemi stry Order HEMOGLOBIN A1C PANEL BLOOD (LAV-BLOOD) [facility] ([facility]) Aug 14, 2024 10:30 AM Imaging - Ultrasou nd Order DUPLEX SCAN: EXTREMITY VEINS, UNILATERAL [place] ([facility]) Encounter Notes: All associated encounter notes This section contains the clinical notes associated to the Encounter. Date/Time Encounter Note(s) Provider Source Jul 08, 2024 09:46 AM NONVA NOTE: LOCAL TITLE: NON-[place] MEDICAL RECORD SUMMARY STANDARD TITLE: NONVA NOTE DATE OF NOTE: JUL 08, 2024@09:46 ENTRY DATE: JUL 08, 2024@09:46:40 AUTHOR: TODD DANIELS EXP COSIGNER: URGENCY: STATUS: COMPLETED COPIED & PASTED FROM [facility] NURSE NOTE Y[facility] Nurse Date of Encounter: 07/01/24 Author: Abigail Mares RN I have seen a mutual patient, Erich Kay ( 44) at his home for a wellness visit. I wanted to send over his fasting blood sugar POC and Vital signs from my visit today, for your records. 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 The wound has stagnated in healing at this time, but he is being followed weekly by the wound clinic at this time. /kasia/ TODD DANIELS RN REGISTERED NURSE Signed: 07/08/2024 09:49 Receipt Acknowledged By: 07/08/2024 10:46 /kasia/ LENORA DEJESUS MD PHYSICIAN TODD DANIELS ([facility])
--- OUTSIDE RECORDS SUMMARY | 2024-08-07 12:24 | XMS_ITS | Encounter Summary ---
Author Name [facility] [place] [facility] [place] Address [address] [place] [address] Care Team Providers Care Bioinformaticist Name Role Phone LENORA DEJESUS Primary Care [...] Jul 31, 2014 MEDICAR E SUPPLEM E [id number] [phone] FR GAMALIEL KAY PATIENT [facility] MEDICARE SUPPLEMEN [facility]EL[facility] MEDIC ARE SUPP Jul 31, 2014 SUPP [id number] [phone] FR GAMALIEL KAY PATIENT MEDICARE (WNR) MEDICARE (M) PART A Jan 29, 2004 PART A [id number] [phone] FR GAMALIEL KAY PATIENT MEDICARE (WNR) MEDICARE (M) PART B Jan 29, 2004 PART B [id number] [phone] FR GAMALIEL KAY PATIENT [facility] (WNR) MEDICARE ADVANTAGE [facility] Jul 31, 2023 [id number] [phone] FR GAMALIEL KAY PATIENT [facility] (WNR) MEDICARE ADVANTAGE MCR (WNR) Jul 31, 2023 [id number] [phone] FR GAMALIEL KAY PATIENT Selected Encounter This section includes the information on [place] at [place] for the Encounter. Date/Time Encounter Type Encounter Description Reason Pro vider Source Jun 05, 2024 04:17 PM Outpatient Encounter [facility] - THERAPIST IHE Encounter Template Text not used by [place] Plan of Treatment: Future Appointments (+ 6 months) and Future Tests (+/- 45 days) The Plan of Treatment section includes future care activities for the patient from all [place] [facility]. This section includes future [...] 12, 2024 11:00 AM AMBULATORY - MEDICINE [facility]) Jun 19, 2024 01:00 PM AM[place] [place] [facility] Jun 25, 2024 02:30 PM AM[place] - [place]ICINE [place] [facility] Jul 30, 2024 03:30 PM AMBULATORY - MEDICINE [facility] ([facility]) Aug 07, 2024 01:00 PM AM[place]ORY - [place]ICINE [place] [facility] Aug 14, 2024 10:00 AM AMBULATORY - NONE [place] [facility] [place] [facility] Sep 02, 2024 03:30 PM AM[place]UL[place]ORY - [place]ICINE [place] [facility] Sep 18, 2024 11:00 AM AMBULATORY - MEDICINE [facility] ([facility]) Oct 07, 2024 02:30 PM AM[place]ORY - [place]ICINE [place] [facility] Active, Pending, and Scheduled Orders This section includes a listing of several types of active, pending, and scheduled orders, including clinic medications orders, diagnostic test orders, procedure orders and consult orders; where the start date of the order is 45 days before the date of the Encounter or 45 days after the date of theEncounter. The data comes from all [place] treatment facilities. Test Date/Time Test Type Test Details Facility Name Jun 11, 2024 04:42 PM Consult Order COMMUNITY CARE-WOUND [facility] [place] ([facility]) Jun 28, 2024 03:50 PM Consult Order PROSTHETIC S REQUEST [facility] [place] ([facility]) Encounter Notes: All associated encounter notes This section contains the clinical notes associated to the Encounter. Date/Time Encounter Note(s) Provider Source Jun 05, 2024 04:17 PM HB TELEPHONE ENC OUNTER NOTE: LOCAL TITLE: [facility] TELEPHONE PRE-ENROLLMENT SCREENING STANDARD TITLE: [facility] TELEPHONE ENCOUNTER NOTE DATE OF NOTE: JUN 05, 2024@16:17 ENTRY DATE: JUN 05, 2024@16:17:39 AUTHOR: MC LOBOIGNER: URGENCY: STATUS: COMPLETED [facility]-PACT Telephone Pre-Enrollment Screening Yes Phenix confirms he/she is primarily home-bound. Yes Any VNA/PACE type health care agencies in the home currently Yes Phenix has need for & is willing to have multiple disciplines enter the home. No Phenix confirms he/she is willing to transfer Primary Care provider to the HB DRIP MOLDER/PA. Ask/List other health care providers, i.e. specialists, community PCP: Yes Phenix is aware of copay status. No has identified caregiver: No Phenix lives with: Did have someone living with him No aware that a home screening visit will be arranged. Chart review completed: main health issues are: Spinal Stenosis Parkinsons/Tremor Diabetes Type 2 Hypertension Melanoma/Basal Cell Atrial Fibrillation Pacemaker Lower extremity Lymphedema Charcot Foot (L) with Wound. Does Pt. have any specific goals? Ex, decrease in falls, decrease in HA1C, stay at home as long as possible etc. GABY 6 CAN 90 Nosos 1.090 ADDITIONAL COMMENTS: Hasn't seen person that was living with him for 5 months Enviroment/Personal Safety Questions: Are you aware of structural concerns with your home? No Now or in the past 6 months have bed bugs been identified in your home? No Do you or anyone else in the home smoke? No Do you or anyone living with you use home oxygen? No Are there any animals in the home? Yes Do you or anyone living with you have substance abuse issues? (alcohol/street or prescription drugs)No Are there any weapons in the home? Yes,(explain) How are they stored? BB Pistol and Rifle, not locked Do you have a legal history (arrests,incarcerations,pr obation,parole,child custody issues)? No Does Pt. have any other safety concerns? No Recommendation: DO NOT ADMIT TO [facility]-PACT. CONTINUE WITH CLINIC PCP. Patient does not want to change PCP. /kasia/ MC LOBO PT, MS, ATP [facility] Physical Therapist Signed: 06/05/2024 16:37 Receipt Acknowledged By: 06/06/2024 11:06 /kasia/ ROBB BASILIOAL DROP WIRER [facility] [place] 06/07/2024 09:43 /kasia/ MEENA SELLERS [facility] FLAT SURFACER JEWEL [facility] LOBO [facility]
--- OUTSIDE RECORDS SUMMARY | 2024-08-07 12:24 | XMS_ITS | Encounter Summary ---
Author Name [facility] [place] Organization [facility] [place] Address [address] [place] [address] Care Team Providers Care Stock Selector Name Role Phone LENORA DEJESUS Primary Care [...] Jul 31, 2014 MEDICAR E SUPPLEM E [id number] [phone] FR GAMALIEL KAY PATIENT [facility] MEDICARE SUPPLEMEN [facility] MEDIC ARE SUPP Jul 31, 2014 SUPP [id number] [phone] FR GAMALIEL KAY PATIENT MEDICARE (WNR) MEDICARE (M) PART A Jan 29, 2004 PART A [id number] [phone] FR GAMALIEL KAY PATIENT MEDICARE (WNR) MEDICARE (M) PART B Jan 29, 2004 PART B [id number] [phone] FR GAMALIEL KAY PATIENT [facility] (WNR) MEDICARE ADVANTAGE [facility] ([id number] Jul 31, 2023 [id number] [phone] FR GAMALIEL KAY PATIENT [facility] (WNR) MEDICARE ADVANTAGE [facility] (WNR) Jul 31, 2023 [id number] [phone] FR GAMALIEL KAY PATIENT Selected Encounter This section includes the information on record at [place] for the Encounter. Date/Time Encounter Type Encounter Description Reason Provider Source Jun 25, 2024 02:30 PM COMPRE OPH EXAM EST PT 1/> OPTOMETRY ICD-10-CM E11.9 Type 2 diabetes mellitus without complications TASH DONALDSON Mitzi Encounter Template Text not used by [place] Assessments - Encounter Diagnoses This section includes the primary and secondary diagnoses documented for the Encounter. Date/Time Primary/Secondary Diagnosis Diagnosis Name Provider Source Jun 25, 2024 02:50 PM PRIMARY Type 2 diabetes mellitus without complications TASH DONALDSON [place] [facility] [place] [facility] Jun 25, 2024 02:50 PM SECONDARY Presbyopia TASH DONALDSON PA [facility] [place] [facility] Jun 25, 2024 02:50 PM SECONDARY Presence of intraocular lens TASH DONALDSON PA [facility] [place] [facility] Plan of Treatment: Future Appointments [...] 30, 2024 03:30 PM AMBULATORY - MEDICINE [facility] ([facility]) Aug 07, 2024 01:00 PM AMBULATORY - MEDICINE PA C [facility] [place] [facility] Aug 14, 2024 10:00 AM AMBULATORY - NONE PA [facility] [place] [facility] Sep 02, 2024 03:30 PM AMBULATORY - MEDICINE PA C [facility] [place] [facility] Sep 18, 2024 11:00 AM AMBULATORY - MEDICINE [facility] ([facility]) Oct 07, 2024 02:30 PM AMBULATORY - MEDICINE PA C [facility] [place] [facility] Active, Pending, and Scheduled Orders This section includes a listing of several types of active, pending, and scheduled orders, including clinic medications orders, diagnostic test orders, procedure orders and consult orders; where the start date of the order is 45 days before the date of the Encounter or 45 days after the date of theEncounter. The data comes from all [place] treatment facilities. Test Date/Time Test Type Test Details Facility Name Jun 11, 2024 04:42 PM Consult Order COMMUNITY CARE-WOUND Cons Personal Computer Network Analyst's [facility] ([facility]) Jun 28, 2024 03:50 PM Consult Order PROSTHETIC S REQUEST Cons Personal Computer Network Analyst's [facility] ([facility]) Aug 02, 2024 02:01 PM Consult Order COMMUNITY CARE-OCCUPATIONAL THERAPY Cons Personal Computer Network Analyst's [facility] ([facility]) Aug 07, 2024 09:59 AM Laboratory - Chemi stry Order CBC AND DIFF (AUTO) BLOOD (LAV-BLOOD) [facility] ([facility]) Aug 07, 2024 09:59 AM Laboratory - Chemi stry Order HEMOGLOBIN A1C PANEL BLOOD (LAV-BLOOD) [facility] ([facility]) Aug 07, 2024 09:59 AM Laboratory - Chemi stry Order BASIC METABOLIC PANEL (non-fasting) BLOOD (SST-SERUM) [facility] ([facility]) Encounter Notes: All associated encounter notes This section contains the clinical notes associated to the Encounter. Date/Time Encounter Note(s) Provider Source Jun 25, 2024 08:08 AM OPTOMETRY NOTE: LOCAL TITLE: OPTOMETRY NOTE STANDARD TITLE: OPTOMETRY NOTE DATE OF NOTE: JUN 25, 2024@08:08 ENTRY DATE: JUN 25, 2024@08:08:20 AUTHOR: TASH DONALDSON COSIGNER: URGENCY: STATUS: COMPLETED Eye Examination for: MUKUL KAY, 83 year old WHITE MALE [place]: 11.21.23 Reason for Visit/CC: Patient here for CEE. [place]umboldt reports he spends a lot of time on the computer and occaisionally is watery. Reports he feels vision may have changed at all distances. Current Ocular Meds: none OHx/HPI: 1. T2DM s retinopathy 2. Pseudophakia OU 3. RE, P (-) Pain: (-) NATARAJAN: (-) Diplopia: (-) Flashes: (-) Floaters: (-) Amaurosis Fugax/Tia's: (-) Eye Injury: (+) Eye Surgery: CE/PCIOL OU, unknown laser procedure (-) TBI FOHx: (-) Glaucoma (-) ARMD (-) Blindness MHx: Code Description E11.621 Diabetic foot ulcer ([facility] [id number]) M48.00 Spinal stenosis ([facility] [id number]) C44.91 Basal Cell Carcinoma of Skin ([facility] [id number]) G20.B1 Parkinson's disease ([facility] [id number]) E11.9 Diabetes Mellitus Type 2 ([facility] [id number]) I10. HTN - Hypertension ([facility] [id number]) Z85.820 History of malignant melanoma of the skin ([facility] [id number]) I48.91 AF- Atrial Fibrillation ([facility] [id number]) Z95.0 Permanent cardiac pacemaker ([facility] [id number]) I89.0 Lymphedema of leg ([facility] [id number]) R25.1 Tremor ([facility] [id number]) SYSTEMIC MEDICATIONS/OCULAR MEDICATIONS: Active Outpatient Medications (including Supplies): Active Outpatient Medications Status 1) ACCU-CHEK GUIDE (GLUCOSE) TEST STRIP USE 1 STRIP TO ACTIVE TEST BLOOD SUGARS TWO TIMES A WEEK 2) APIXABAN 5MG TAB TAKE ONE TABLET BY MOUTH TWICE DAILY ACTIVE (S) 3) CARBIDOPA 25/LEVODOPA 100MG TAB TAKE 1 TABLET BY ACTIVE MOUTH THREE TIMES A DAY FOR 7 DAYS, THEN TAKE 2 TABLETS THREE TIMES A DAY FOR PARKINSON'S DISEASE 4) ENTACAPONE 200MG TAB TAKE ONE TABLET BY MOUTH THREE ACTIVE TIMES A DAY FOR PARKINSON'S DISEASE 5) FLUTICASONE PROP 50MCG 120D NASAL INHL INSTILL 2 ACTIVE SPRAYS INTO EACH NOSTRIL ONCE DAILY 6) FUROSEMIDE 20MG TAB TAKE ONE TABLET BY MOUTH TWICE ACTIVE DAILY TO REMOVE FLUID/CONTROL BLOOD PRESSURE 7) GLIMEPIRIDE 1MG TAB TAKE ONE TABLET BY MOUTH ONCE ACTIVE DAILY FOR TYPE 2 DIABETES MELLITUS 8) LANCET,SOFTCLIX USE 1 LANCET DIRECTED TWO TIMES A ACTIVE WEEK TO TEST BLOOD SUGAR 9) LIDOCAINE 5% PATCH APPLY 1 PATCH TOPICALLY ONCE DAILY ACTIVE NEEDED FOR NERVE PAIN (LEAVE PATCH ON FOR 12 HOURS, THEN REMOVE PATCH) 10) METOPROLOL TARTRATE 50MG TAB TAKE ONE AND ONE-HALF ACTIVE TABLETS BY MOUTH TWICE DAILY FOR HEART RATE CONTROL FOR BLOOD PRESSURE/HEART ALLERGIES: LISINOPRIL, METFORMIN VITALS (most recent, as listed in the electronic record): B/P: 100/60 (06/12/2024 11:26) Pulse: 94 (06/12/2024 11:26) Temperature: 98 F [36.7 C] (06/12/2024 11:26) Weight: 205.9 lb [93.39 kg] (06/12/2024 11:26) Height: 65 in [165.1 cm] (11/24/2021 11:12) BMI: BMI: 34.3 PERTINENT LABS: HEMOGLOBIN A1C TREND Collection DT Spec HGBA1c 03/20/2024 11:27 BLOOD 6.0 H 09/13/2023 13:18 BLOOD 6.6 H 05/12/2023 08:42 BLOOD 6.4 H 11/23/2022 13:38 BLOOD 6.6 H 04/13/2022 13:19 BLOOD 6.0 H (-) Smoker (never) Current Rx with last BCVA: OD: -0.75 20/20 OS: -0.25 20/20 Add: +2.50 20/20 DVA ( )sc ( x )cc - [x]phoropter []specs []CL OD: 20/25-2 OS: 20/20 Entrance Testing: Pupil: PERRL (-)APD EOM: SAFE OU, (-)Pain/Diplopia CVF: FTFC OU Subjective Refraction: OD: [id number] 20/20 OS: -0.25 20/20 Add: +2.50 20/20 SLE: Lids/Lashes: dermatochalasis OU, papilloma LLL Conjunctiva: white and quiet bulbar conj OU quiet palpebral conj OU Corneas: clear OU Iris: flat and clear OU, (-)NVI OU AC: D & Q OU Angles: 4x4 OU TAP @ 2:32pm OD 17 mmHg OS 17 mmHg [x]Ponce []iCare []GAT Last IOP: OD: 10 OS: 12 Dilating Drops: 1GTT 1 % Tropicamide OU & 1GTT 2.5% Phenylephrine OU (Pt. ed. on side effects, dilation warning given and verbal consent obtained) Patient advised not to drive if they feel they have any symptoms which could affect their ability to drive safely. Patient advised not to engage in any activities which could put themselves or others at risk if they feel they have any symptoms which could affect their ability to perform those activities safely. Dilated Fundus Exam: Vit: syneresis OU Lens: PCIOL OU C/D (Size and Rim Description) OD 0.35 pink and healthy OS 0.40 pink and healthy (-)NVD OU PPole OD clear OS clear (-)DBH/CWS/MARISOL/VB Macula OD flat and clear OS flat and clear (-)CSME OU A/V: normal caliber OU Periphery: flat and intact (-)NVE, holes, tears, detachments 360 OU Assessment/Plan: 1. Type II Diabetes without evidence of retinopathy or macular edema OU. Last A1c 6.0% -Pt ed re today's findings and the possible ocular health and visual complications associated with diabetes as well as importance of attending follow up appointments -Encouraged blood sugar, blood pressure and lipid control as directed by provider managing diabetes. -Pt ed to report any vision changes MAUDE. - repeated back the plan and education. -Monitor 2. Pseudophakia OU -Pt ed re today's findings and the importance of UV protection -[place] repeated back the plan and education. -Monitor 3. Refractive Error and Presbyopia OU -Rx updated and ordered per pt request palX2 -Monitor RTC 2 YEARS or earlier PRN Glasses adjusted/repaired in office: () Yes (x) No If yes, how many pairs: Education: Diabetes: Patient was educated regarding diabetes and related ocular complications including retinopathy and cataract formation as well as other related systemic complications. The importance of good blood sugar control, blood sugar testing as recommended by their PCP and the importance of timely follow up were all emphasized. Medication Reconciliation: Outpatient: Has the patient been taking medications as documented in the EMLR? YES: The patient has been taking medications as documented in the EMLR. Essential Medication List for Review used to complete this medication reconciliation. INCLUDED IN THIS LIST: Alphabetical list of active outpatient prescriptions dispensed from this PA (local) and dispensed from another PA or [facility] facility (remote) as well as [...] whether with a VA or non-VA provider. Medication List: JLV Link Data on this list may not be complete. Please check JLV. Allergies/ADRs (Tool #5) FACILITY ALLERGY/ADR -------- No Remote Allergy/ADR Data available for this patient [facility] LISINOPRIL [facility] METFORMIN Med. Reconciliation (Tool #1) INCLUDED IN THIS LIST: Alphabetical list of active outpatient prescriptions dispensed from this PA (local) and dispensed from another PA or [facility] facility (remote) as well as inpatient orders (local pending and active), local clinic medications, locally documented non-VA medications, and local prescriptions that have or been discontinued in the past 90 days. Non-VA Meds Last Documented On: Jul 28, 2021 NOTE The display of VA prescriptions dispensed from another PA or [facility] facility (remote) is limited to active outpatient prescription entries matched to National Drug File at the originating site and may not include some items such as investigational drugs, compounds, etc. NOT INCLUDED IN THIS LIST: Medications self-entered by the patient into personal health records (i.e. [employer]) are NOT included in this list. Non-VA medications documented outside this PA, remote inpatient orders (regardless of status) and remote clinic medications are NOT included in this list. The patient and provider must always discuss medications the patient is taking, regardless of where the medication was dispensed or obtained. OUTPT APIXABAN 5MG TAB (Status = Active/Suspended) TAKE ONE TABLET BY MOUTH TWICE DAILY Rx# [id number] Last Released: 05/18/24 Qty/Days Supply: 180/ Rx Expiration Date: 08/18/24 Refills Remainin OUTPT CARBIDOPA 25/LEVODOPA 100MG TAB (Status = Active) TAKE 1 TABLET BY MOUTH THREE TIMES A DAY FOR 7 DAYS, THEN TAKE 2 TABLETS THREE TIMES A DAY FOR PARKINSON'S DISEASE Rx# [id number] Last Released: 05/22/24 Qty/Days Supply: 540/90 Rx Expiration Date: 10/27/24 Refills Remainin Indication: FOR PARKINSON'S DISEASE OUTPT ENTACAPONE 200MG TAB (Status = Active) TAKE ONE TABLET BY MOUTH THREE TIMES A DAY FOR PARKINSON'S DISEASE Rx# [id number] Last Released: 06/14/24 Qty/Days Supply: 270/90 Rx Expiration Date: 09/10/24 Refills Remainin Indication: FOR PARKINSON'S DISEASE OUTPT FLUTICASONE PROP 50MCG 120D NASAL INHL (Status = Active) INSTILL 2 SPRAYS INTO EACH NOSTRIL ONCE DAILY Rx# [id number] Last Released: 10/13/23 Qty/Days Supply: Rx Expiration Date: 10/10/24 Refills Remainin Indication: FOR NASAL IRRITATION/INFLAMMATION OUTPT FUROSEMIDE 20MG TAB (Status = Discontinued) TAKE ONE TABLET BY MOUTH ONCE DAILY TO REMOVE FLUID/CONTROL BLOOD PRESSURE Rx# [id number] Last Released: 09/23/23 Qty/Days Supply: Rx Expiration Date: 09/19/24 Refills Remainin OUTPT FUROSEMIDE 20MG TAB (Status = Active) TAKE ONE TABLET BY MOUTH TWICE DAILY TO REMOVE FLUID/CONTROL BLOOD PRESSURE Rx# [id number] Last Released: 03/28/24 Qty/Days Supply: 180 Rx Expiration Date: 03/28/25 Refills Remainin Indication: FOR VISIBLE WATER RETENTION OUTPT GLIMEPIRIDE 1MG TAB (Status = Active) TAKE ONE TABLET BY MOUTH ONCE DAILY FOR TYPE 2 DIABETES MELLITUS Rx# [id number] Last Released: 03/28/24 Qty/Days Supply: Rx Expiration Date: 06/25/24 Refills Remainin Indication: FOR TYPE 2 DIABETES MELLITUS OUTPT LIDOCAINE 5% PATCH (Status = Active) APPLY 1 PATCH TOPICALLY ONCE DAILY NEEDED FOR NERVE PAIN (LEAVE PATCH ON FOR 12 HOURS, THEN REMOVE PATCH) Rx# [id number] Last Released: 10/12/23 Qty/Days Supply: Rx Expiration Date: 10/10/24 Refills Remainin Indication: FOR NERVE PAIN OUTPT METOPROLOL TARTRATE 50MG TAB (Status = Discontinued) TAKE ONE TABLET BY MOUTH TWICE DAILY FOR BLOOD PRESSURE/HEART Rx# [id number] Last Released: 02/29/24 Qty/Days Supply: 180/90 Rx Expiration Date: 02/26/25 Refills Remainin Indication: FOR HEART RATE CONTROL OUTPT METOPROLOL TARTRATE 50MG TAB (Status = Active) TAKE ONE AND ONE-HALF TABLETS BY MOUTH TWICE DAILY FOR HEART RATE CONTROL FOR BLOOD PRESSURE/HEART Rx# [id number] Last Released: 05/18/24 Qty/Days Supply: 180/60 Rx Expiration Date: 05/16/25 Refills Remainin Indication: FOR HEART RATE CONTROL OUTPT SITAGLIPTIN (EQV-ZITUVIO) 100MG TAB (Status = Discontinued) TAKE ONE TABLET BY MOUTH ONCE DAILY Rx# [id number] Last Released: 02/02/24 Qty Supply: Rx Expiration Date: 01/30/25 Refills Remainin Indication: FOR DIABETES SUPPLIES OUTPT ACCU-CHEK GUIDE (GLUCOSE) TEST STRIP (Status = Active) USE 1 STRIP TO TEST BLOOD SUGARS TWO TIMES A WEEK Rx# [id number] Last Released: 02/02/24 Qt Supply: 50/180 Rx Expiration Date: 01/30/25 Refills Remainin OUTPT LANCET,SOFTCLIX (Status = Active) USE 1 LANCET DIRECTED TWO TIMES A WEEK TO TEST BLOOD SUGAR Rx# [id number] Last Released: 02/02/24 Qt Supply: 100/90 Rx Expiration Date: 01/30/25 Refills Remainin PHARMACY TERMS AND POSSIBLE PATIENT ACTIONS INPT = PA inpatient order IV = PA intravenous medication OUTPT = PA outpatient prescription PHARMACY POSSIBLE PATIENT TERMS EXPLANATION ACTIONS -------- ----- ACTIVE A prescription that can be If you have refills, filled at the local [place] pharmacy. you may request a refill of this prescription from your [place] pharmacy. CLINIC A medication you received during If you have questions a visit to a PA clinic or about this medication emergency department. contact your PA healthcare team. DISCONTINUED A prescription your provider has Contact your VA stopped. It is no longer healthcare team if you available to be sent to you or need more of this picked up at the PA pharmacy medication. window. A prescription which is too old Contact your VA to fill. This does not refer to healthcare team if you the expiration date of the need more of this medication in the container. medication. NON-VA A medication that came from If this medication someplace other than a VA information is pharmacy. This may be a incorrect or out of prescription from either the VA date, please tell your or non VA providers that was VA healthcare team. filled outside the VA. Or, it may be an atvy-szs-orzcfqo (OTC), herbal, dietary supplements or sample medication. ON HOLD An active prescription that will Contact your VA not be filled until pharmacy pharmacy when you need resolves the issue. more of this medication. PARKED An active prescription that will Contact your VA not be filled until the patient pharmacy when you need requests it. this medication. PENDING This prescription order has been If you have been sent to the pharmacy for review instructed to start and is not ready yet. this medication now, contact your VA pharmacy. SUSPENDED An active prescription that is Contact your PA not scheduled to be filled yet. pharmacy if you need You should receive it before this medication now. you run out. (x) Printed Medication Reconciliation List Offered and Declined by () Medication Reconciliation List Printed for at Exam () Optometry HT Please Print and Mail Copy of Medication Reconciliation List () AMSA Please Print and Mail Copy of Medication Reconciliation List /es/ TASH DONALDSON OD NATIONAL RECRUITER Signed: 06/25/2024 14:51 TASH DONALDSON PA CN[facility]
--- OUTSIDE RECORDS SUMMARY | 2024-08-07 12:24 | XMS_ITS ---
Author Name [facility] [place] Organization [facility] [place] Address [address] [place] [address] Care Team Providers Care Laboratory Tester Name Role Phone LENORA DEJESUS Primary [...] Jul 31, 2014 MEDICAR E SUPPLEM E [id number] [phone] FR GAMALIEL KAY PATIENT [facility] MEDICARE SUPPLEMEN [place] MEDIC ARE SUPP Jul 31, 2014 SUPP [id number] [phone] FR GAMALIEL KAY PATIENT MEDICARE (WNR) MEDICARE (M) PART A Jan 29, 2004 PART A [id number] [phone] FR GAMALIEL KAY PATIENT MEDICARE (WNR) MEDICARE (M) PART B Jan 29, 2004 PART B [id number] [phone] FR GAMALIEL KAY PATIENT [facility] (WNR) MEDICARE ADVANTAGE [facility] (R) Jul 31, 2023 [id number] GAMALIEL MACHADO PATIENT [facility] (WNR) MEDICARE ADVANTAGE [facility] (WNR) Jul 31, 2023 [id number] [phone] FR GAMALIEL KAY PATIENT Selected Encounter This section includes the information on record at [place] for the Encounter. Date/Time Encounter Type Encounter Description Reason Pro vider Source Jan 24, 2024 12:00 AM Outpatient Encounter COMMUNITY CARE CONSULT [...] 30, 2024 01:00 PM AMBULATORY - MEDICINE [facility] [place] [facility] Mar 27, 2024 01:00 PM AMBULATORY - MEDICINE [facility] ([facility]) Apr 04, 2024 08:00 AM AMBULATORY MEDICINE [facility] [place] [facility] May 15, 2024 02:00 PM AMBULATORY - MEDICINE [facility] ([facility]) Jun 12, 2024 11:00 AM AMBULATORY - MEDICINE [facility] ([facility]) Jun 19, 2024 01:00 PM AMBULATORY - MEDICINE [facility] [place] [facility] Jun 25, 2024 02:30 PM AMBULATORY MEDICINE [facility] [place] [place] [facility] Encounter Notes: All associated encounter notes This section contains the clinical notes associated to the Encounter. Date/Time Encounter Note(s) Provider Source Jan 24, 2024 12:00 AM NONVA CONSULT: LOCAL TITLE: COMMUNITY CARE-CONSULT RESULT NOTE STANDARD TITLE: NONVA CONSULT DATE OF NOTE: JAN 24, 2024 ENTRY DATE: JUL 16, 2024@15:21:19 AUTHOR: VINOD CARDOZA COSIGNER: URGENCY: STATUS: COMPLETED VistA Imaging - Scanned Document SCANNED DOCUMENT SIGNATURE NOT REQUIRED Electronically Filed: 07/16/2024 by: VINOD CARDOZA PROGRAM DIRECTOR/TRAFFIC DIRECTOR VINOD CARDOZA ME PETERSONRDayne [facility]
--- OUTSIDE RECORDS SUMMARY | 2024-08-07 12:24 | XMS_ITS | Encounter Summary ---
Author Name [place] Address [address] [place] [address] Care Team Providers Care Kiln Transfer Operator Name Role Phone LENORA DEJESUS Primary [...] Jul 31, 2014 MEDICAR E SUPPLEM E [id number] [phone] FR GAMALIEL KAY PATIENT [facility] MEDICARE SUPPLEMEN EVANGELISTA MEDIC ARE SUPP Jul 31, 2014 SUPP [id number] [phone] FR GAMALIEL KAY PATIENT MEDICARE (WNR) MEDICARE (M) PART A Jan 29, 2004 PART A [id number] [phone] FR GAMALIEL KAY PATIENT MEDICARE (WNR) MEDICARE (M) PART B Jan 29, 2004 PART B [id number] [phone] FR GAMALIEL KAY PATIENT [facility] (WNR) MEDICARE ADVANTAGE [facility] ([facility]) Jul 31, 2023 [id number] RAHUL GAMALIEL PATIENT [facility] MCR (WNR) MEDICARE ADVANTAGE MCR (WNR) Jul 31, 2023 [id number] [phone] FR GAMALIEL KAY PATIENT Selected Encounter This section includes the information on record at [place] for the Encounter. Date/Time Encounter Type Encounter Description Reason Pro vider Source May 02, 2024 12:00 AM Outpatient Encounter EVENT (HISTORICAL) IHE Encounter Template Text not used by VA Plan of Treatment: Future Appointments (+ 6 months) and Future Tests (+/- 45 days) The Plan of Treatment section includes future care activities for the patient from all [place] treatmentfacilities. This section includes future appointments and future orders which are active, pending or scheduled. Future Appointments This section includes appointments that were scheduled to occur 6 months from the date of the Encounter, up to a maximum of 20 appointments. The data comes from all [place] treatment facilities. Appointment Date/Time Appointment Type Appointme nt Facility Name May 15, 2024 02:00 PM AMBULATORY - MEDICINE [facility] ([facility]) Jun 12, 2024 11:00 AM AMBULATORY - MEDICINE [facility] ([facility]) Jun 19, 2024 01:00 PM AMBULATORY - MEDICINE [place] [facility] Jun 25, 2024 02:30 PM AMBULATORY - MEDICINE [place] [facility] Jul 30, 2024 03:30 PM AMBULATORY - MEDICINE [facility] ([facility]) Aug 07, 2024 01:00 PM AMBULATORY - MEDICINE [place] [facility] Aug 14, 2024 10:00 AM AMBULATORY - NONE [place] [facility] Sep 02, 2024 03:30 PM AMBULATORY - MEDICINE [place] [facility] [place] [facility] Sep 18, 2024 11:00 AM AMBULATORY - MEDICINE [facility] ([facility]) Oct 07, 2024 02:30 PM AMBULATORY - MEDICINE [place] [facility] Active, Pending, and Scheduled Orders This section includes a listing of several types of active, pending, and scheduled orders, including clinic medications orders, diagnostic test orders, procedure orders and consult orders; where the start date of the order is 45 days before the date of the Encounter or 45 days after the date of theEncounter. The data comes from all [place] treatment facilities. Test Date/Time Test Type Test Details Facility Name Jun 11, 2024 04:42 PM Consult Order COMMUNITY CARE-WOUND Cons Associate Business Analyst[facility] [place] ([facility]) Immunizations: All administered on the encounter date This section contains immunizations associated to the Encounter. Immunization Series Date Issued Reaction Comments COVID-19 (PFIZER), MRNA, LNP -S, PF, IAN-SUCROSE, 30 MCG/0.3 ML (AGES 12+ YEARS) May 02, 2024 INFLUENZA, UNSPECIFIED FORMULATION May 02, 2024
--- OUTSIDE RECORDS SUMMARY | 2024-08-07 12:24 | XMS_ITS | Encounter Summary ---
Author Name Department [place] Address [address] [place] [address] Care Team Providers Care Wing Coverer Name Role Phone LENORA DEJESUS Primary Care [...] Jul 31, 2014 MEDICAR E SUPPLEM E [id number] [phone] FR GAMALIEL KAY PATIENT [facility] MEDICARE SUPPLEMEN [place]ANGELISTA MEDIC ARE SUPP Jul 31, 2014 SUPP [id number] [phone] FR GAMALIEL KAY PATIENT MEDICARE (WNR) MEDICARE (M) PART A Jan 29, 2004 PART A [id number] [phone] FR GAMALIEL KAY PATIENT MEDICARE (WNR) MEDICARE (M) PART B Jan 29, 2004 PART B [id number] [phone] FR GAMALIEL KAY PATIENT [facility] (WNR) MEDICARE ADVANTAGE [facility] ([facility]) Jul 31, 2023 [id number] RAHULFR GAMALIEL MACHADO PATIENT [facility] MCR (WNR) MEDICARE ADVANTAGE MCR (WNR) Jul 31, 2023 [id number] [phone] FR GAMALIEL KAY PATIENT Selected Encounter This section includes the information on record at [place] for the Encounter. Date/Time Encounter Type Encounter Description Reason Pro vider Source May 29, 2024 12:00 AM Outpatient Encounter EVENT (HISTORICAL) IHE Encounter Template Text not used by [place] Plan of Treatment: Future Appointments (+ 6 months) and Future Tests (+/- 45 days) The Plan of Treatment section includes future care activities for the patient from all [place] [facility]. This section includes future appointments and [...] 12, 2024 11:00 AM AMBULATORY - MEDICINE [facility] ([facility] Jun 19, 2024 01:00 PM AMBULATORY - MEDICINE [place] [facility] Jun 25, 2024 02:30 PM AMBULATORY - MEDICINE [place] [facility] [place] [facility] Jul 30, 2024 03:30 PM AMBULATORY - MEDICINE [facility] ([facility] Aug 07, 2024 01:00 PM AMBULATORY - MEDICINE [place] [facility] Aug 14, 2024 10:00 AM AMBULATORY - NONE [place] [facility] [place] [facility] Sep 02, 2024 03:30 PM AMBULATORY - MEDICINE [place] [facility] [place] [facility] Sep 18, 2024 11:00 AM AMBULATORY - MEDICINE [facility] ([facility]) Oct 07, 2024 02:30 PM AMBULATORY - MEDICINE [place] [facility] Active, Pending, and Scheduled Orders This [...] 04:42 PM Consult Order COMMUNITY CARE-WOUND Cons Kiln [facility] [place] ([facility]) Jun 28, 2024 03:50 PM Consult Order PROSTHETIC S REQUEST Cons Kiln [facility] [place] ([facility]) Encounter Notes: All associated encounter notes This section contains the clinical notes associated to the Encounter. Date/Time Encounter Note(s) Provider Source May 29, 2024 12:00 AM NONVA NOTE: LOCAL TITLE: NON-VA OUTPATIENT NOTES STANDARD TITLE: NONVA NOTE DATE OF NOTE: MAY 29, 2024 ENTRY DATE: JUN 24, 2024@14:42:16 AUTHOR: MARLENA EAGLE EXP COSIGNER: URGENCY: STATUS: COMPLETED VistA Imaging - Scanned Document SCANNED DOCUMENT SIGNATURE NOT REQUIRED Electronically Filed: 06/24/2024 by: MARLENA EAGLE LICENSED PRACTICAL NURSE MARLENA EAGLE [place] [facility]
--- OUTSIDE RECORDS SUMMARY | 2024-08-07 12:24 | XMS_ITS | Encounter Summary ---
Author Name [facility] [place] Address [address] [place] [id number] Care Team Providers Care Food And Beverage Server Name Role Phone LENORA DEJESUS Primary Care [...] Jul 31, 2014 MEDICAR E SUPPLEM E [id number] [phone] FR GAMALIEL KAY PATIENT [facility] MEDICARE SUPPLEMEN EVANGELISTA MEDIC ARE SUPP Jul 31, 2014 SUPP [id number] [phone] FR GAMALIEL KAY PATIENT MEDICARE (WNR) MEDICARE (M) PART A Jan 29, 2004 PART A [id number] [phone] FR GAMALIEL KAY PATIENT MEDICARE (WNR) MEDICARE (M) PART B Jan 29, 2004 PART B [id number] [id number] [phone] FR GAMALIEL KAY PATIENT [facility] (WNR) MEDICARE ADVANTAGE [facility] ([facility]) Jul 31, 2023 [id number] [phone] FR GAMALIEL KAY PATIENT [facility] MCR (WNR) MEDICARE ADVANTAGE [facility] (WNR) Jul 31, 2023 [id number] [phone] FR GAMALIEL KAY PATIENT Selected Encounter This section includes the information on record at [place] for the Encounter. Date/Time Encounter Type Encounter Description Reason Provider Source Jun 12, 2024 11:00 AM OFFICE O/P EST MOD 30 MIN PRIMARY CARE/MEDICINE ICD-10-CM G20.B1 Parkinson's dis with dyskinesia, 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 fluctuations ANJELICAMARCELINANENA SANCHEZ M Mitzi Encounter Template Text not used by [place] Assessments - Encounter Diagnoses This section includes the primary and secondary diagnoses documented for the Encounter. Date/Time Primary/Secondary Diagnosis Diagnosis Name Provider Source Jun 13, 2024 05:00 PM PRIMARY Parkinson's dis with dyskinesia, 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 fluctuations ANJELICAMARCELINANENA [place] ([facility]) Jun 13, 2024 05:00 PM SECONDARY Essential (primary) hypertension ANJELICAMARCELINANENA SANCHEZ Kurt [place] ([facility]) Jun 13, 2024 05:00 PM SECONDARY Tremor, unspecified KEMICHOACANOMARCELINAVADAVID HN M DARYL ([facility]) Jun 13, 2024 05:00 PM SECONDARY Type 2 diabetes mellitus without complications ANJELICAMARCELINANENA SANCHEZ Kurt D[place]L ([facility]) Jun 13, 2024 05:00 PM SECONDARY Unspecified atrial fibrillation ANJELICALEANRDADAVID SANCHEZ Kurt [place] ([facility]) Plan of Treatment: Future Appointments (+ 6 [...] 19, 2024 01:00 PM AMBULATORY - MEDICINE [facility] Jun 25, 2024 02:30 PM AMBULATORY [facility] Jul 30, 2024 03:30 PM [facility] Aug 07, 2024 01:00 PM AMBULATORY - MEDICINE [place] [facility] Aug 14, 2024 10:00 AM AMBULATORY - NONE [place] [facility] Sep 02, 2024 03:30 PM AMBULATORY - MEDICINE [place] [facility] Sep 18, 2024 11:00 AM AMBULATORY - MEDICINE [facility] ([facility]) Oct 07, 2024 02:30 PM AMBULATORY - MEDICINE [facility] Active, Pending, and Scheduled Orders [...] 04:42 PM Consult Order COMMUNITY CARE-WOUND Cons Neurology [facility] [place] ([facility]) Jun 28, 2024 03:50 PM Consult Order PROSTHETIC S REQUEST Cons Neurology Physician's [facility] ([facility]) Vital Signs: All taken on the encounter date This section contains inpatient and outpatient Vital Signs collected on the date of the Encounter. Date/Time Temperature Pulse Blood Pressure Respiratory Rate SP02 Pain Height Weight Body Mass Index Source Jun 12, 2024 11:26 AM 100/60 [place] ([facility]) Jun 12, 2024 11:26 AM 98 94 96/62 20 95 5 205.9 34 [place] ([facility]) Social History: Smoking Status (Most current) and Tobacco Use (All prior to encounter date) This section includes the most current, and the historical, smoking and tobacco- related health factors from the [place] facility where the Encounter took place. Current Smoking Status This section includes the most current smoking, or tobacco-related health factor, from the [place] facility where the Encounter took place. Date/Time Current Smoking Status Comment Jo william Sep 22, 2023 01:00 PM VA-TOBACCO NEVER USED [place] ([facility]) Tobacco Use History This section includes a history of the smoking, or tobacco-related health factors, that were collected on or before the date of the Encounter. The data comes from the [place] facility where the Encounter took place. Date/Time [...] Encounter. Date/Time Encounter Note(s) Provider Source Jun 12, 2024 11:35 AM IMMUNIZATION NOTE: LOCAL TITLE: [place] IMMUNIZATION NOTE STANDARD TITLE: IMMUNIZATION NOTE DATE OF NOTE: JUN 12, 2024@11:35:38 ENTRY DATE: JUN 12, 2024@11:35:38 AUTHOR: CHRISTOPHER COLLINS EXP COSIGNER: URGENCY: STATUS: COMPLETED Documented: RESPIRATORY SYNCYTIAL VIRUS (RSV), UNSPECIFIED Historical Date Administered: Apr 24, 2024 Information Source: FROM PATIENT'S WRITTEN RECORD /daphney COLLINS LPN LICENSED PRACTICAL NURSE Signed: 06/12/2024 11:35 CHRISTOPHER COLLINS (CB) Jun 12, 2024 11:30 AM PREVENTIVE MEDICIN E NURSING NOTE: LOCAL TITLE: CLINICAL REMINDERS/NURSING STANDARD TITLE: PREVENTIVE MEDICINE NURSING NOTE DATE OF NOTE: JUN 12, 2024@11:30 ENTRY DATE: JUN 12, 2024@11:30:58 AUTHOR: CHRISTOPHER COLLINS EXP COSIGNER: URGENCY: STATUS: COMPLETED Influenza Immunization: The patient has received the seasonal influenza vaccine for the current season at another location. Documented: INFLUENZA, UNSPECIFIED FORMULATION Historical Date Administered: May 02, 2024 Information Source: FROM PATIENT'S WRITTEN RECORD COVID-19 Immunization: Patient received a prior dose of the Pfizer Monovalent vaccine. Documented: COVID-19 (PFIZER), MRNA, LNP-S, PF, IAN-SUCROSE, 30 MCG/0.3 ML (AGES 12+ YEARS) Historical Date Administered: May 02, 2024 Information Source: FROM PATIENT'S WRITTEN RECORD /kasia/ CHRISTOPHER COLLINS LPN LICENSED PRACTICAL NURSE Signed: 06/12/2024 11:33 CHRISTOPHER COLLINS (CB) Jun 12, 2024 11:12 AM PHYSICIAN NOTE: LOCAL TITLE: MD NOTE STANDARD TITLE: PHYSICIAN NOTE DATE OF NOTE: JUN 12, 2024@11:12 ENTRY DATE: JUN 12, 2024@11:12:27 AUTHOR: LENORA DEJESUS EXP COSIGNER: URGENCY: STATUS: COMPLETED PRIMARY CARE VISIT MUKUL KAY, is a 83 yo WHITE MALE who presents at the [place] [facility]. TYPE OF VISIT: F2F 83-year-old male with a past medical history of atrial fibrillation on Eliquis s/p pacemaker, diabetes mellitus, Parkinson disease, hypertension, left 2nd toe amputation, Charcot foot, left lower extremity cellulitis nephrolithiasis, he follows with the wound clinic for chronic ulcerations and wounds of his lower extremities secondary to Charcot disease. He has been concerned about his worsening tremor. E consult was placed with neurology who suggested adding a medication. And discussing the timing of his tremor. He does not notice any changes with his carbo levodopa dosages and tremor he says its consistently very bad left hand worse than the right. PCP: [place] Cardiology: MICHELE Derm: [place] Wound clinic: [facility] HISTORY: PERIOD OF SERVICE - [employer] FROM May TO Jul COMBAT SERVICE INDICATED: No VITAL SIGNS: Temperature 98.2 F [36.8 C] (05/15/2024 15:08) Blood Pressure 112/71 (05/15/2024 15:08) Pulse 92 (05/15/2024 15:08) Respiration 20 (05/15/2024 15:08) Pain 5 (05/15/2024 15:08) BMI BMI: 33.9 Weight 203 lb [92.08 kg] (05/15/2024 15:08) Pulse Oximetry 95% (05/15/2024 15:08) ASSISTIVE DEVICES: REVIEW OF SYSTEMS: [...] extremities, or unilateral weakness. EXAMINATION General: Well-appearing in no obvious distress. [...] stenosis 3. Basal Cell Carcinoma of Skin ([facility] [id number]) 4. Parkinson's disease 5. Diabetes Mellitus Type 2 ([facility] [id number]) 6. HTN - Hypertension ([facility] [id number]) 7. History of malignant melanoma of the skin 8. AF- Atrial Fibrillation ([facility]CT [id number]) 9. Permanent cardiac pacemaker 10. Lymphedema of leg 11. Tremor == Parkinson's disease: Continue with current dose of carbo levodopa. Awaiting neurology consult == Tremor: Reviewed E consult with [place] and discussed starting new medication ntacapone as a add-on for tremor. Discussed side effects of medication and we will follow-up in 5 weeks to discuss == Atrial fibrillation: Continue anticoagulation with apixaban and rate controlled with metoprolol == Diabetes: Last A1c was 6.0 in February. He will continue on his current dose of glimepiride == Charcot foot: With chronic ulcerations will follow-up with wound clinic and we asked him to request recent notes from his wound care provider stating that the current Absentee[place]awnee walker was not sufficient. If this is the case then the [facility] can be consulted for a new Abs[place] walker. FOLLOW UP: RTC Below & sooner PRN UPCOMING APPOINTMENTS: 06/25/2024 14:30 NHM/OPTOMETRY/DONALDSON/ 08/07/2024 13:00 COM CARE-NEUROLOGY 10/07/2024 14:30 CWM/GO/DERMATOLGY A minutes spent in patient evaluation, data review, and patient education. All medications were reconciled during this visit. No barriers; Patient understands and agrees to current treatment plan. If pt has any questions, concerns, or changes in current health status he/she will call or come in to the [facility]. /kasia/ LENORA DEJESUS MD PHYSICIAN Signed: 06/13/2024 17:00 LENORA DEJESUS (CB)
--- OUTSIDE RECORDS SUMMARY | 2024-08-07 12:24 | XMS_ITS | Encounter Summary ---
Author Name [place] Address [address] [place] [address] Care Team Providers Care Editing Internship Name Role Phone LENORA DEJESUS Primary Care [...] Jul 31, 2014 MEDICAR E SUPPLEM E [id number] [phone] FR GAMALIEL KAY PATIENT [facility] MEDICARE SUPPLEMEN EVANGELISTA MEDIC ARE SUPP Jul 31, 2014 SUPP [id number] [phone] FR GAMALIEL KAY PATIENT MEDICARE (WNR) MEDICARE (M) PART A Jan 29, 2004 PART A [id number] [phone] FR GAMALIEL KAY PATIENT MEDICARE (WNR) MEDICARE (M) PART B Jan 29, 2004 PART B [id number] [phone] FR GAMALIEL KAY PATIENT [facility] (WNR) MEDICARE ADVANTAGE [facility] ([facility]) Jul 31, 2023 [id number] [phone] FR GAMALIEL KAY PATIENT [facility] (WNR) MEDICARE ADVANTAGE [facility] (WNR) Jul 31, 2023 [id number] [phone] FR GAMALIEL KAY PATIENT Selected Encounter This section includes the information on record at [place] for the Encounter. Date/Time Encounter Type Encounter Description Reason Provider Source Jun 25, 2024 03:09 PM FIT SPECTACLES MULTIFOCAL OPTOMETRY ICD-10-CM Z46.0 Encounter for fit/adjst of spectacles and contact lenses TASH DONALDSON IHMitzi Encounter Template Text not used by [place] Assessments - Encounter Diagnoses This section includes the primary and secondary diagnoses documented for the Encounter. Date/Time Primary/Secondary Diagnosis Diagnosis Name Provider Source Jun 25, 2024 03:09 PM PRIMARY Encounter for fit/adjst of spectacles and contact lenses [facility] [place] [facility] Plan of Treatment: Future Appointments [...] 30, 2024 03:30 PM AMBULATORY - MEDICINE [facility] ([facility]) Aug 07, 2024 01:00 PM AMBULATORY - MEDICINE [facility] NTR [place] [facility] Aug 14, 2024 10:00 AM AMBULATORY - NONE [place]TR [place] [facility] Sep 02, 2024 03:30 PM AMBULATORY - MEDICINE [facility] NTRL [place] [facility] Sep 18, 2024 11:00 AM AMBULATORY - MEDICINE [facility] ([facility]) Oct 07, 2024 02:30 PM AMBULATORY - MEDICINE [facility] NTR [place] [facility] Active, Pending, and Scheduled Orders This section includes a listing of several types of active, pending, and scheduled orders, including clinic medications orders, diagnostic test orders, procedure orders and consult orders; where the start date of the order is 45 days before the date of the Encounter or 45 days after the date of theEncounter. The data comes from all [place] treatment facilities. Test Date/Time Test Type Test Details Facility Name Jun 11, 2024 04:42 PM Consult Order COMMUNITY CARE-WOUND Cons End [facility] [place] ([facility] Jun 28, 2024 03:50 PM Consult Order PROSTHETIC S REQUEST Cons End [facility] ([facility]) Aug 02, 2024 02:01 PM Consult Order COMMUNITY CARE-OCCUPATIONAL THERAPY Cons End [facility]) Aug 07, 2024 09:59 AM Laboratory - Chemi stry Order CBC AND DIFF (AUTO) BLOOD (LAV-BLOOD) [facility] ([facility]) Aug 07, 2024 09:59 AM Laboratory - Chemi stry Order HEMOGLOBIN A1C PANEL BLOOD (LAV-BLOOD) [facility] ([facility]) Aug 07, 2024 09:59 AM Laboratory - Chemi stry Order BASIC METABOLIC PANEL (non-fasting) BLOOD (SST-SERUM) [facility] ([facility]) Encounter Notes: All associated encounter notes This section contains the clinical notes associated to the Encounter. Date/Time Encounter Note(s) Provider Source Jun 25, 2024 03:09 PM OPTOMETRY NOTE: LOCAL TITLE: OPTOMETRY NOTE STANDARD TITLE: OPTOMETRY NOTE DATE OF NOTE: JUN 25, 2024@15:09 ENTRY DATE: JUN 25, 2024@15:09:39 AUTHOR: MIOL KINSEY EXP COSIGNER: URGENCY: STATUS: COMPLETED OPTOMETRY NOTE Has ADDENDA The quote provided below is for informational purposes only. Please verify prior to the creation of a purchase order. MUKUL HARRISONELL 0842 RX INFORMATION OD 0.00 -1.00 X75 Add:+2.50 Pzm:0.00 Dir: Prz2:0.00 Dir2: OS -0.25 0.00 X Add:+2.50 Pzm:0.00 Dir: Prz2:0.00 Dir2: FITTING INFORMATION FPD: NPD: [place]:R:29.5 L:32.0 SEG HT:R:21 L:21 Tint:PATEL Shade:3 VA Billable Items FRAME: FX27 GOLD [id number] Right Lens: PLASTIC VA PROGRESSIVE 1.498 PLASTIC CR39 Left Lens: PLASTIC [place] PROGRESSIVE 1.498 PLASTIC CR39 UV400 BACKSIDE AR SOLID TINT CLIN items [employer] - Backside AR Coating 0004 - Progressive - Glass Plastic Poly -------- The quote provided below is for informational purposes only. Please verify prior to the creation of a purchase order. MUKUL KAY 0842 RX INFORMATION OD 0.00 -1.00 X75 Add:+2.50 Pzm:0.00 Dir: Prz2:0.00 Dir2: OS -0.25 0.00 X Add:+2.50 Pzm:0.00 Dir: Prz2:0.00 Dir2: FITTING INFORMATION FPD: NPD: [place]:R:29.5 L:32.0 SEG HT:R:21 L:21 Tint:None Shade:None VA Billable Items FRAME: FX27 [facility] [id number] Right Lens: PLASTIC VA PROGRESSIVE 1.498 PLASTIC CR39 Left Lens: PLASTIC VA PROGRESSIVE 1.498 PLASTIC CR39 KLEAR ANTI-REFLECTIVE COATING CLIN items [employer] - AR Coating 0004 - Progressive - Glass Plastic Poly /kasia/ MILO KINSEY COMMUNITY PLANNING TECHNICIAN Signed: 06/25/2024 15:10 Receipt Acknowledged By: 06/26/2024 10:52 /kasia/ [facility] Health Information Technology Auditor 06/26/2024 ADDENDUM STATUS: COMPLETED PDS Roller Picker fit patient with 2 pair(s) of pal eyeglasses on 06/25/2024. OPT HT entered consult(s) as requested for provider signature. /kasia/ [facility] Health Information Technology Auditor Signed: 06/26/2024 10:55 MILO KINSEY [facility]
--- OUTSIDE RECORDS SUMMARY | 2024-08-07 12:24 | XMS_ITS ---
Author Name [place] Address [address] [place] [address] Care Team Providers Care Physical Director Name Role Phone ELNORA DEJESUS Primary Care Provider Unavailab le Insurance [...] Jul 31, 2014 MEDICAR E SUPPLEM E [id number] [phone] FR GAMALIEL KAY PATIENT [facility] MEDICARE SUPPLEMEN [place] MEDIC ARE SUPP Jul 31, 2014 SUPP [id number] [phone] FR GAMALIEL KAY PATIENT MEDICARE (WNR) MEDICARE (M) PART A Jan 29, 2004 PART A [id number] [phone] FR GAMALIEL KAY PATIENT MEDICARE (WNR) MEDICARE (M) PART B Jan 29, 2004 PART B [id number] [phone] FR GAMALIEL KAY PATIENT [facility] (WNR) MEDICARE ADVANTAGE [facility] ([facility]) Jul 31, 2023 [id number] GAMALIEL MACHADO PATIENT [facility] (WNR) MEDICARE ADVANTAGE MCR (WNR) Jul 31, 2023 [id number] [phone] FR GAMALIEL KAY PATIENT Selected Encounter This section includes the information on record at [place] for the Encounter. Date/Time Encounter Type Encounter Description Reason Pro vider Source Apr 24, 2024 12:00 AM Outpatient Encounter EVENT [...] PM AMBULATORY - MEDICINE [facility] ([facility]) Jun 12, 2024 11:00 AM AMBULATORY - MEDICINE [facility] ([facility]) Jun 19, 2024 01:00 PM AMBULATORY - MEDICINE [place] [facility] [place] [facility] Jun 25, 2024 02:30 PM AMBULATORY - MEDICINE [place] [place] [facility] Jul 30, 2024 03:30 PM AMBULATORY - MEDICINE [facility] ([facility]) Aug 07, 2024 01:00 PM AMBULATORY - MEDICINE [place] [facility] [place] [facility] Aug 14, 2024 10:00 AM AMBULATORY - NONE [place] [facility] [place] [facility] Sep 02, 2024 03:30 PM AMBULATORY - MEDICINE [place] [facility] [place] [place] [facility] Sep 18, 2024 11:00 AM [facility] Oct 07, 2024 02:30 PM AMBULATORY - MEDICINE [place] [place] [facility] Immunizations: All administered on the encounter date This section contains immunizations associated to the Encounter. Immunization Series Date Issued Reaction Comments RESPIRATORY SYNCYTIAL VIRUS (RSV), UNSPECIFIED Apr 24, 2024
--- OUTSIDE RECORDS SUMMARY | 2024-08-07 12:24 | XMS_ITS | Encounter Summary ---
Author Name [place] Address [address] [place] [address] Care Team Providers Care Hinging Machine Operator Name Role Phone LENORA DEJESUS [...] Jul 31, 2014 MEDICAR E SUPPLEM E [id number] [phone] FR GAMALIEL KAY PATIENT [facility] MEDICARE SUPPLEMEN EVANGELIST[place] MEDIC ARE SUPP Jul 31, 2014 SUPP [id number] [phone] FR GAMALIEL KAY PATIENT MEDICARE (WNR) MEDICARE (M) PART A Jan 29, 2004 PART A [id number] [phone] FR GAMALIEL KAY PATIENT MEDICARE (WNR) MEDICARE (M) PART B Jan 29, 2004 PART B [id number] [phone] FR GAMALIEL KAY PATIENT [facility] (WNR) MEDICARE ADVANTAGE [facility] ([facility]) Jul 31, 2023 [id number] [phone] FR GAMALIEL KAY PATIENT [facility] (WNR) MEDICARE ADVANTAGE [facility] (WNR) Jul 31, 2023 [id number] [phone] FR RAHUL GAMALIEL PATIENT Selected Encounter This section includes the information on record at [place] for the Encounter. Date/Time Encounter Type Encounter Description Reason Provider Source May 19, 2024 02:26 PM Outpatient Encounter NEUROLOGY ICD-10-CM G20.C Parkinsonism, unspecified HI KNOX Mitzi Encounter Template Text not used by [place] Assessments - Encounter Diagnoses This section includes the primary and secondary diagnoses documented for the Encounter. Date/Time Primary/Secondary Diagnosis Diagnosis Name Provider Source Jun 18, 2024 09:40 AM PRIMARY Parkinsonism, unspecified HI KNOX [facility] Plan of Treatment: Future Appointments (+ 6 [...] AM AMBULATORY - MEDICINE [facility] ([facility]) Jun 19, 2024 01:00 PM AMBULATORY - [place]ICINE [place] [facility] Jun 25, 2024 02:30 PM AMBULATORY - MEDICINE [place] [facility] Jul 30, 2024 03:30 PM AMBULATORY - MEDICINE [facility] ([facility]) Aug 07, 2024 01:00 PM AMBULATORY - MEDICINE [place] [facility] Aug 14, 2024 10:00 AM AMBULATORY - NONE [place] [facility] Sep 02, 2024 03:30 PM AMBULATORY - MEDICINE [place] [facility] Sep 18, 2024 11:00 AM AMBULATORY - MEDICINE [facility] ([facility]) Oct 07, 2024 02:30 PM AMBULATORY - MEDICINE [place] [facility] Active, Pending, and Scheduled Orders This [...] 04:42 PM Consult Order COMMUNITY CARE-WOUND [facility] ([facility]) Jun 28, 2024 03:50 PM Consult Order PROSTHETIC S REQUEST [facility] ([facility]) Encounter Notes: All associated encounter notes This section contains the clinical notes associated to the Encounter. Date/Time Encounter Note(s) Provider Source May 19, 2024 02:27 PM NEUROLOGY CONSULT: LOCAL TITLE: CONSULT /NEUROLOGY E-CONSULT STANDARD TITLE: NEUROLOGY CONSULT DATE OF NOTE: MAY 19, 2024@14:27 ENTRY DATE: MAY 19, 2024@14:27:14 AUTHOR: HI KNOX COSIGNER: URGENCY: STATUS: COMPLETED --Neurology E-Consult Note-- Consulting Provider: LENORA DEJESUS Consult Question: 83-year-old male with a past medical history [...] needs referral to specialty supplies for a Lime walker He is on carbo levodopa for Parkinson's. He is to follow-up with neurology however appointment is months away. Tremor worsening of hands. Difficulty performing tasks. Would like recommendations on medications if possible thank you Response: Mr. Kay is an 83M with PMH as above for whom a neurology e-consult is place for worsening tremor. Patient was last seen by [facility] neurology in 09/2023 (no longer followed by that provider since he left). Parkinsonian symptoms, including tremor, were well-controlled per the note on his dose of C/L (not specified in note, but per the chart takes 2 tabs of 25/100mg TID). Patient noted to have abnormal VALERY scan. Without knowing or evaluating this patient it is difficult to understand why he has a worsening tremor. This may reflect progression of disease with earlier wearing off of the medication's effect, dykinesias from his medication, partial adherence to his current regimen, or a concommitant essential tremor (among other things). Local provider will need discussion of timing of his tremor worsening (i.e., when is it worse). Does this coincinde with wearing off his medication. Can consider adjusting timing of current C/L to better cover off time or splitting 3 daily doses of 2 tabs into 4 daily doses of 1.5 tabs. Can also consider adding entacapone, a COMT inhibitor. However, patient will be best served by specialty neurological care. Agree with pending CC consult. Can consider Tele-Neurology evaluation or [facility] neurology consult if there is a delay in getting the CC appointment. /kasia/ HI KNOX MD PHD Attending Neurologist Signed: 05/19/2024 14:57 HI KNOX [facility]
--- OUTSIDE RECORDS SUMMARY | 2024-08-07 12:24 | XMS_ITS | Encounter Summary ---
Author Name [place] Address [address] [place] [address] Care Team Providers Care Imaging Center Manager Name Role Phone LENORA ROJO Primary [...] Jul 31, 2014 MEDICAR E SUPPLEM E [id number] [phone] FR GAMALIEL KAY PATIENT [facility] MEDICARE SUPPLEMEN [place] MEDIC ARE SUPP Jul 31, 2014 SUPP [id number] [phone] FR GAMALIEL KAY PATIENT MEDICARE (WNR) MEDICARE (M) PART A Jan 29, 2004 PART A [id number] [phone] FR GAMALIEL KAY PATIENT MEDICARE (WNR) MEDICARE (M) PART B Jan 29, 2004 PART B [id number] [phone] FR GAMALIEL KAY PATIENT [facility] (WNR) MEDICARE ADVANTAGE [facility] ([facility]) Jul 31, 2023 [id number] [phone] FR GAMALIEL KAY PATIENT [facility] MCR (WNR) MEDICARE ADVANTAGE MCR (WNR) Jul 31, 2023 [id number] [phone] FR GAMALIEL KAY PATIENT Selected Encounter This section includes the information on record at [place] for the Encounter. Date/Time Encounter Type Encounter Description Reason Pro vider Source Jun 28, 2024 12:08 PM Outpatient Encounter PRIMARY CARE/MEDICINE IHE Encounter Template Text not used by [place] Plan of Treatment: Future Appointments (+ 6 months) and Future Tests (+/- 45 days) The Plan of Treatment section includes future care activities for the patient from all [place] [facility] This section includes future appointments and future orders which are active, pending or scheduled. Future Appointments This section includes appointments that were scheduled to occur 6 months from the date of the Encounter, up to a maximum of 20 appointments. The data comes from all [facility]. Appointment Date/Time Appointment Type Appointme nt Facility Name Jul 30, 2024 03:30 PM [facility]ULATORY [facility]INE [facility] ([facility]) Aug 07, 2024 01:00 PM AMBULATORY - MEDICINE [facility] [place] [facility] Aug 14, 2024 10:00 AM [facility] [place] [facility] Sep 02, 2024 03:30 PM AMBULATORY - MEDICINE [facility] [place] [facility] Sep 18, 2024 11:00 AM AMBULATORY - MEDICINE [facility] ([facility]) Oct 07, 2024 02:30 PM AMBULATORY - MEDICINE [facility] Active, Pending, and Scheduled Orders This section includes a listing of several types of active, pending, and scheduled orders, including clinic medications orders, diagnostic test orders, procedure orders and consult orders; where the start date of the order is 45 days before the date of the Encounter or 45 days after the date of theEncounter. The data comes from all [facility]. Test Date/Time Test Type Test Details Facility Name Jun 11, 2024 04:42 PM Consult Order COMMUNITY CARE-WOUND [facility] ([facility]) Jun 28, 2024 03:50 PM Consult Order PROSTHETIC S REQUEST [facility] Information [facility] ([facility]) Aug 02, 2024 02:01 PM Consult Order COMMUNITY CARE-OCCUPATIONAL THERAPY [facility] ([facility]) Aug 07, 2024 09:59 AM Laboratory - Chemi stry Order CBC AND DIFF (AUTO) BLOOD (LAV-BLOOD) [facility] ([facility]) Aug 07, 2024 09:59 AM Laboratory - Chemi stry Order HEMOGLOBIN A1C PANEL BLOOD (LAV-BLOOD) [facility] ([facility]) Aug 07, 2024 09:59 AM Laboratory - Chemi stry Order BASIC METABOLIC PANEL (non-fasting) BLOOD (SST-SERUM) [facility] ([facility]) Encounter Notes: All associated encounter notes This section contains the clinical notes associated to the Encounter. Date/Time Encounter Note(s) Provider Source Jun 28, 2024 12:08 PM NONVA NOTE: LOCAL TITLE: [facility] MEDICAL RECORD SUMMARY STANDARD TITLE: NONVA NOTE DATE OF NOTE: JUN 28, 2024@12:08 ENTRY DATE: JUN 28, 2024@12:08:22 AUTHOR: TODD DANIELS COSIGNER: URGENCY: STATUS: COMPLETED [facility] MEDICAL RECORD SUMMARY Has ADDENDA COPIED & PASTED FROM WOUND CARE NOTES June 12, 2024 RE: Erich Kay : [address] Rojo, I have been seeing Jose Kay numerous years for various problems related to his foot deformity as well as venous insufficiency ulcerations. 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 He cannot apply this boot and when it is applied by someone else, he finds it intolerable. He insists that it is poorly made and although I am not necessarily in agreement, perhaps a different air quality consultant could improve upon or substitute it for a similar boot which could be more easily applied and would, in turn, be more comfortable. 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 This ulcer will never heal unless we can somehow unweight it. I think it is very reasonable to seek a consultation and perhaps a device from the [facility] orthopedic and prosthetic operation in [place] in [place]. Thank you in advance for your time, please feel free to contact me at [phone] option 2 if you have any questions. Sincerely, Carla Vaughn MD AAOS /kasia/ TODD DANIELS RN REGISTERED NURSE Signed: 06/28/2024 12:08 Receipt Acknowledged By: 06/28/2024 16:17 /kasia/ LENORA ROJO MD PHYSICIAN 06/28/2024 ADDENDUM STATUS: COMPLETED Prosthetics request added and held for PCP review and signature if appropriate. /kasia/ TODD DANIELS RN REGISTERED NURSE Signed: 06/28/2024 12:12 TODD DANIELS ([facility])
--- OUTSIDE RECORDS SUMMARY | 2024-08-07 12:25 | XMS_ITS | Encounter Summary ---
Author Name [place] Address [address] [place] [address] Care Team Providers Care High Rigger Name Role Phone LENORA DEJESUS Primary Care [...] Jul 31, 2014 MEDICAR E SUPPLEM E [id number] [phone] FR GAMALIEL KAY PATIENT [facility] MEDICARE SUPPLEMEN EVANGELISTA MEDIC ARE SUPP Jul 31, 2014 SUPP [id number] [phone] FR GAMALIEL KAY PATIENT MEDICARE (WNR) MEDICARE (M) PART A Jan 29, 2004 PART A [id number] [phone] FR GAMALIEL KAY PATIENT MEDICARE (WNR) MEDICARE (M) PART B Jan 29, 2004 PART B [id number] [phone] FR GAMALIEL KAY PATIENT [facility] (WNR) MEDICARE ADVANTAGE [facility]) Jul 31, 2023 [id number] [phone] FR GAMALIEL KAY PATIENT [facility] (WNR) MEDICARE ADVANTAGE [facility] (WNR) Jul 31, 2023 [id number] [phone] FR GAMALIEL KAY PATIENT Selected Encounter This section includes the information on record at [place] for the Encounter. Date/Time Encounter Type Encounter Description Reason Pro vider Source Aug 02, 2024 01:18 PM Outpatient Encounter PRIMARY CARE/MEDICINE IHE Encounter [...] The data comes from all [place] treatment [facility]. Appointment Date/Time Appointment Type Appointme nt Facility Name Aug 07, 2024 01:00 PM AMBULATORY [facility] Aug 14, 2024 10:00 AM AM[facility]ULATORY - NONE [facility] [place] [facility] Sep 02, 2024 03:30 PM AMBULATORY - MEDICINE [facility] Sep 18, 2024 11:00 AM AMBULATORY - MEDICINE [facility] ([facility]) Oct 07, 2024 02:30 PM AMBULATORY - MEDICINE [facility] Active, Pending, and Scheduled Orders This [...] from all [facility]. Test Date/Time Test Type Test Details Facility Name Jun 28, 2024 03:50 PM Consult Order PROSTHETIC S REQUEST Cons [facility] ([facility]) Aug 02, 2024 02:01 PM Consult Order COMMUNITY CARE-OCCUPATIONAL THERAPY Cons [facility] ([facility]) Aug 07, 2024 09:59 AM Laboratory - Chemi stry Order CBC AND DIFF (AUTO) BLOOD (LAV-BLOOD) [place] ([facility]) Aug 07, 2024 09:59 AM Laboratory - Chemi stry Order HEMOGLOBIN A1C PANEL BLOOD (LAV-BLOOD) [facility] ([facility]) Aug 07, 2024 09:59 AM Laboratory - Chemi stry Order BASIC METABOLIC PANEL (non-fasting) BLOOD (SST-SERUM) [facility] ([facility]) Aug 14, 2024 10:30 AM Imaging - Ultrasou nd Order DUPLEX SCAN: EXTREMITY VEINS, UNILATERAL [facility] ([facility]) Encounter Notes: All associated encounter notes This section contains the clinical notes associated to the Encounter. Date/Time Encounter Note(s) Provider Source Aug 02, 2024 01:18 PM NONVA NOTE: LOCAL TITLE: NON-VA MEDICAL RECORD SUMMARY STANDARD TITLE: NONVA NOTE DATE OF NOTE: AUG 02, 2024@13:18 ENTRY DATE: AUG 02, 2024@13:19:30 AUTHOR: TODD DANIELS EXP COSIGNER: URGENCY: STATUS: COMPLETED COPIED & PASTED FROM [facility] NURSE NOTE [facility] Nurse Date of Encounter: 08/01/24 Author: Abigail Mares RN I have seen a mutual patient, Erich Kay ( 44) at his home for a wellness visit. For your records, here is his VS and A1C result: A1C: 6.3 Vital Signs: 98.6, HR 90s-100s, RR 20, BP 114/76, 96% RA His lungs were clear and his heart rate was irregular. He has continued lower ext edema (right greater than left), is continuing to wear compression sock on right leg. No SOB, no palpitations or chest discomfort, no increased weakness/fatigue. 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 The wound is neither healing nor progressing, but infectious signs do no appear to be present currently. /es/ TODD DANIELS RN REGISTERED NURSE Signed: 08/02/2024 13:25 Receipt Acknowledged By: 08/02/2024 16:27 /es/ LENORA DEJESUS MD PHYSICIAN TODD DANIELS ([facility])
--- OUTSIDE RECORDS SUMMARY | 2024-08-07 12:25 | XMS_ITS ---
Author Name [facility] [facility] [place] [facility] [place] Address [address] [place] [address] Care Team Providers Care Relay Adjuster Name Role Phone LENORA DEJESUS Primary Care [...] Jul 31, 2014 MEDICAR E SUPPLEM E [id number] [phone] FR GAMALIEL KAY PATIENT [facility] MEDICARE SUPPLEMEN [facility] MEDIC ARE SUPP Jul 31, 2014 SUPP [id number] FR GAMALIEL KAY PATIENT MEDICARE (WNR) MEDICARE (M) PART A Jan 29, 2004 PART A [id number] [phone] FR GAMALIEL KAY PATIENT MEDICARE (WNR) MEDICARE (M) PART B Jan 29, 2004 PART B [id number] [phone] FR GAMALIEL KAY PATIENT [facility] (WNR) MEDICARE ADVANTAGE [facility] (R) Jul 31, 2023 [id number] [phone] FR GAMALIEL KAY PATIENT [facility] MCR (WNR) MEDICARE ADVANTAGE MCR (WNR) Jul 31, 2023 [id number] [phone] FR GAMALIEL KAY PATIENT Selected Encounter This section includes the information on record at [place] for the Encounter. Date/Time Encounter Type Encounter Description Reason Pro vider Source Mar 27, 2024 12:00 AM Outpatient Encounter [facility] [...] 04, 2024 08:00 AM [place] [facility] [place] [facility] May 15, 2024 02:00 PM AMBULATORY - MEDICINE [facility] Jun 12, 2024 11:00 AM AMBULATORY - MEDICINE [facility] Jun 19, 2024 01:00 PM [place] [facility] [place] [facility] Jun 25, 2024 02:30 PM [place] [facility] [place] [facility] Jul 30, 2024 03:30 PM AMBULATORY - MEDICINE [facility] Aug 07, 2024 01:00 PM [place] [facility] [place] [facility] Aug 14, 2024 10:00 AM AMBULATORY - NONE [place] [facility] [place] [facility] Sep 02, 2024 03:30 PM [place] [facility] [place] [facility] Sep 18, 2024 11:00 AM AMBULATORY - MEDICINE [facility] Lab Results: +/- 30 days of the encounter This section includes the Chemistry and Hematology Lab Results on record with [place] for the patient. Radiology Reports and Pathology Reports are provided separately, in subsequent sections. Lab Results This section contains the Chemistry/Hematology Results that were resulted 30 days before or 30 daysafter the date of the Encounter. Date/Time Source Result Type Result - Unit Interpretation Reference Range Comment Mar 20, 2024 11:40 AM [place] [facility] MICROALBUMIN CREATININE RATIO PANEL Specimen Type: URINE No comment entered. Ordering Provider: FLYNN DEJESUS Report Released Date/Time: Mar 11, 2024 11:36 AM Reporting Lab: [address] [address] Performing Lab: [address] [address] MICROALBUMIN/C REATININE RATIO 13.3 mg/g 0-29.9 MICROALBUMIN,Q UANTITATIVE 2.0 mg/dL RR UNAVAIL CREATININE URINE 150.03 mg/dL Mar 20, 2024 11:40 AM [place] [facility] URINALYSIS Specimen Type: URINE Comment: If Glucose = >500 and Ketones are positive, please alert the Physician. Ordering Provider: FLYNN DEJESUS Report Released Date/Time: Mar 11, 2024 11:36 AM Reporting Lab: [address] [address] Performing Lab: [address] [address] UA COLOR Yellow Yellow UA APPEARANCE Clear Clear UA GLUCOSE Normal mg/dL Negative UA KETONES NEGATIVE mg/dL Negative UA BLOOD NEGATIVE mg/dL Negative UA PROTEIN 10 mg/dL Negative UA NITRITE NEGATIVE mg/dL Negative UA BILIRUBIN NEGATIVE mg/dL Negative UA SPECIFIC GRAVITY 1.023 H 1.016-1.02 2 UA pH 6.0 5.0-9.0 UA UROBILINOGEN Normal mg/dL <2.0 UA LEUKOCYTE SMALL Negative Mar 20, 2024 11:40 AM [place] [facility] MICROSCOPIC AUTOMATED, URINE Specimen Type: URINE Comment: If Glucose = >500 and Ketones are positive, please alert the Physician. Ordering Provider: FLYNN DEJESUS Report Released Date/Time: Mar 11, 2024 11:36 AM Reporting Lab: [address] [address] Performing Lab: [address] [address] UA WBC 6-10 /[HPF] H 0-5 UA MUCUS FEW /[LPF] Trace UA RBC 0-2 /[HPF] 0-3 UA SQUAMOUS EPITH FEW /[HPF] Mar 20, 2024 11:28 AM [place] [facility] VITAMIN B12 Specimen Type: SERUM No comment entered. Ordering Provider: FLYNN DEJESUS Report Released Date/Time: Mar 11, 2024 11:36 AM Reporting [facility] [address] Performing Lab: [facility] [address] [address] VITAMIN B12 386 pg/mL 200-900 Mar 20, 2024 11:28 AM [place] [facility] VITAMIN D (25-OH) Specimen Type: SERUM No comment entered. Ordering Provider: FLYNN DEJESUS Report Released Date/Time: Mar 11, 2024 11:36 AM Reporting [facility]: [facility] [address] [address] Performing Lab: [facility] [address] [address] VITAMIN D (25-OH) 29 ng/mL 20-50 Mar 20, 2024 11:28 AM [place] [facility] TSH Specimen Type: SERUM No comment entered. Ordering Provider: FLYNN DEJESUS Report Released Date/Time: Mar 11, 2024 11:36 AM Reporting Lab: [facility] [address] [address] Performing Lab: [facility] [address] [address] TSH 1.56 u[IU]/mL 0.35-5.00 Mar 20, 2024 11:28 AM [place] [facility] LIVER FUNCTION Specimen Type: SERUM No comment entered. Ordering Provider: FLYNN DEJESUS Report Released Date/Time: Mar 11, 2024 11:36 AM Reporting Lab: [facility] [address] [address] Performing Lab: [facility] [address] [address] PROTEIN,TOTAL 6.9 g/dL 6.0-8.3 ALBUMIN 3.5 g/dL 3.5-5.0 ALKALINE PHOSPHATASE 79 U/L 40-150 AST 14 U/L 5-34 ALT <6 U/L BILIRUBIN, TOTAL 0.5 mg/dL 0.2-1.2 Mar 20, 2024 11:28 AM [place] [facility] LIPID PANEL, NON FASTING Specimen Type: SERUM No comment entered. Ordering Provider: FLYNN DEJESUS Report Released Date/Time: Mar 11, 2024 11:36 AM Reporting Lab: [address] [address] Performing Lab: [place] [address] CHOLESTEROL 162 mg/dL TRIGLYCERIDE 115 mg/dL 0-150 LDL calculated 99 mg/dL 0-129 CHOL/HDL 4.1 HDL CHOLESTEROL 40 mg/dL 40-60 Mar 20, 2024 11:28 AM [place] [facility] CBC AND DIFF (AUTO) Specimen Type: BLOOD No comment entered. Ordering Provider: FLYNN DEJESUS Report Released Date/Time: Mar 11, 2024 11:36 AM Reporting Lab: [address] [address] Performing Lab: [place] [id number] WBC 6.97 10*3/uL 4.50-11.00 RBC 5.38 10*6/uL [...] 10*3/uL 0.00-0.00 Mar 20, 2024 11:27 AM [facility] HEMOGLOBIN A1C PANEL Specimen Type: BLOOD [...] 30, 2024 01:20 PM Reporting Lab: [address] [address] Performing Lab: [address] [address] HEMOGLOBIN A1C 6.0 H 4.0-5.6 Mar 20, 2024 11:27 AM [facility] BASIC METABOLIC PANEL (non-fasting) Specimen Type: SERUM No comment entered. Ordering Provider: LORY CARPENTER Report Released Date/Time: Jan 30, 2024 01:20 PM Reporting Lab: [address] [address] Performing Lab: [address] [address] UREA NITROGEN 21 mg/dL 7-25 GLUCOSE 175 mg/dL H 65-100 SODIUM 139 mmol/L 135-145 POTASSIUM 4.0 mmol/L 3.5-5.0 CHLORIDE 104 mmol/L 100-110 CO2 25 meq/L 20-30 CREATININE, Serum 1.11 mg/dL 0.50-1.40 eGFR(CKD-EPI 2020) 67 mL/min >60 Encounter Notes: All associated encounter notes This section contains the clinical notes associated to the Encounter. Date/Time Encounter Note(s) Provider Source Mar 27, 2024 12:00 AM NONVA CONSULT: LOCAL TITLE: COMMUNITY CARE-CONSULT RESULT NOTE STANDARD TITLE: NONVA CONSULT DATE OF NOTE: MAR 27, 2024 ENTRY DATE: JUL 29, 2024@14:49:02 AUTHOR: CORTNEY RODRIGUEZ EXP COSIGNER: URGENCY: STATUS: COMPLETED VistA Imaging - Scanned Document SCANNED DOCUMENT SIGNATURE NOT REQUIRED Electronically Filed: 07/29/2024 by: CORTNEY RODRIGUEZ DIRECTOR DENTAL SERVICES CORTNEY RODRIGUEZ [place] [facility]
--- OUTSIDE RECORDS SUMMARY | 2024-08-07 12:25 | XMS_ITS | Encounter Summary ---
Author Name [facility] [facility] [place] Address [address] [place] [id number] Care Team Providers Care Table Filler Name Role Phone LENORA DEJESUS Primary [...] Jul 31, 2014 MEDICAR E SUPPLEM E [id number] [phone] FR GAMALIEL KAY PATIENT [facility] MEDICARE SUPPLEMEN EVANGELISTA MEDIC ARE SUPP Jul 31, 2014 SUPP [phone] FR GAMALIEL KAY PATIENT MEDICARE (WNR) MEDICARE (M) PART A Jan 29, 2004 PART A [id number] [phone] FR GAMALIEL KAY PATIENT MEDICARE (WNR) MEDICARE (M) PART B Jan 29, 2004 PART B [id number] [phone] FR GAMALIEL KAY PATIENT [facility] (WNR) MEDICARE ADVANTAGE [facility] ([facility]) Jul 31, 2023 [id number] [phone] FR GAMALIEL KAY PATIENT [facility] (WNR) MEDICARE ADVANTAGE [facility] (WNR) Jul 31, 2023 [id number] [phone] FR GAMALIEL KAY PATIENT Selected Encounter This section includes the information on record at [place] for the Encounter. Date/Time Encounter Type Encounter Description Reason Provider Source Jul 30, 2024 03:30 PM OFFICE O/P EST MOD 30 MIN PRIMARY CARE/MEDICINE ICD-10-CM I48.91 Unspecified atrial fibrillation HUBER DEJESUS Mitzi Encounter Template Text not used by [place] Assessments - Encounter Diagnoses This section includes the primary and secondary diagnoses documented for the Encounter. Date/Time Primary/Secondary Diagnosis Diagnosis Name Provider Source Aug 02, 2024 12:26 PM PRIMARY Unspecified atrial fibrillation HUBER DEJESUS [facility] ([facility]) Aug 02, 2024 12:26 PM SECONDARY Essential (primary) hypertension LEANDRA DEJESUSDAVID LAURA Hicks DARY[facility] ([facility]) Aug 02, 2024 12:26 PM SECONDARY Lymphedema, not elsewhere classified LEANDRA DEJESUSDAVID LAURA BRITO ([facility]) Aug 02, 2024 12:26 PM SECONDARY Non-pressure chronic ulcer oth prt unsp foot w unsp severity HUBER DEJESUS ([facility]) Aug 02, 2024 12:26 PM SECONDARY Other reduced mobility HUBER DEJESUS ([facility]) Aug 02, 2024 12:26 PM SECONDARY Tremor, unspecified HUBER DEJESUS ([facility]) Aug 02, 2024 12:26 PM SECONDARY Type 2 diabetes mellitus with foot ulcer OTMASMICHOACANOLEANDRADAVID LAURA Hicks DARYL ([facility]) Aug 02, 2024 12:26 PM SECONDARY Type 2 diabetes mellitus without complications LEANDRA DEJESUSDAVID LAURA BRITO ([facility]) Plan of Treatment: Future Appointments (+ 6 months) and Future Tests (+/- 45 days) The Plan of Treatment section includes future care activities for the patient from all [place] treatmentfacilities. This section includes future appointments and future orders which are active, pending or scheduled. Future Appointments This section includes appointments that were scheduled to occur 6 months from the date of the Encounter, up to a maximum of 20 appointments. The data comes from all [place] treatment facilities. Appointment Date/Time Appointment Type Appointme nt Facility Name Aug 07, 2024 01:00 PM AMBULATORY [place]ICINE [place] [facility] [place] [facility] Aug 14, 2024 10:00 AM AMBULATORY [facility] NONE [facility] [place] [facility] Sep 02, 2024 03:30 PM [facility]ATORY [facility]ICINE [facility] [place] Sep 18, 2024 11:00 AM AMBULATORY - MEDICINE [facility] ([facility]) Oct 07, 2024 02:30 PM AMBULATORY - MEDICINE [place] [facility] [place] [facility] Active, Pending, and Scheduled Orders This section includes a listing of several types of active, pending, and scheduled orders, including clinic medications orders, diagnostic test orders, procedure orders and consult orders; where the start date of the order is 45 days before the date of the Encounter or 45 days after the date of theEncounter. The data comes from all [place] treatment facilities. Test Date/Time Test Type Test Details Facility Name Jun 28, 2024 03:50 PM Consult Order PROSTHETIC S REQUEST [facility] ([facility]) Aug 02, 2024 02:01 PM Consult Order COMMUNITY CARE-OCCUPATIONAL THERAPY [facility] ([facility]) Aug 07, 2024 09:59 AM Laboratory - Chemi stry Order HEMOGLOBIN A1C PANEL BLOOD (LAV-BLOOD) [facility] ([facility]) Aug 07, 2024 09:59 AM Laboratory - Chemi stry Order CBC AND DIFF (AUTO) BLOOD (LAV-BLOOD) [facility] ([facility]) Aug 07, 2024 09:59 AM Laboratory - Chemi stry Order BASIC METABOLIC PANEL (non-fasting) BLOOD (SST-SERUM) [facility] ([facility]) Aug 14, 2024 10:30 AM Imaging - Ultrasou nd Order DUPLEX SCAN: EXTREMITY VEINS, UNILATERAL [place] ([facility]) Vital Signs: All taken on the encounter date This section contains inpatient and outpatient Vital Signs collected on the date of the Encounter. Date/Time Temperature Pulse Blood Pressure Respiratory Rate SP02 Pain Height Weight Body Mass Index Source Jul 30, 2024 03:39 PM 97.6 86 104/67 20 96 4 211.4 35 [place] ([facility]) Social History: Smoking Status (Most current) and Tobacco Use (All prior to encounter date) This section includes the most current, and the historical, smoking and tobacco- related health factors from the [place] facility where the Encounter took place. Current Smoking Status This section includes the most current smoking, or tobacco-related health factor, from the [place] facility where the Encounter took place. Date/Time Current Smoking Status Comment Jo william Sep 22, 2023 01:00 PM VA-TOBACCO NEVER USED [facility] ([facility]) Tobacco Use History This section includes a history of the smoking, or tobacco-related health factors, that were collected on or before the date of the Encounter. The data comes from the [place] facility where the Encounter took place. 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 TYPE OF VISIT: face to face 83-year-old male with a past medical history of atrial fibrillation on Eliquis s/p pacemaker, diabetes mellitus, Parkinson disease, hypertension, left 2nd toe amputation, Charcot foot, left lower extremity cellulitis nephrolithiasis, he follows with the wound clinic for chronic ulcerations and wounds of his lower extremities secondary to Charcot disease. Having difficulty at home with stairs, usually needs to climb about 12-15 steps and his risk for falls. Chronic lymphedema of the lower extremities with right greater than left however he states the right leg has become much more swollen over the last week. He has significant neuropathy therefore is unable to recognize pain Recent labs and all medications were reconciled during this visit. HISTORY: PERIOD OF SERVICE - [employer] FROM May TO Jul COMBAT SERVICE INDICATED: No VITAL SIGNS: Temperature 97.6 F [36.4 C] (07/30/2024 15:39) Blood Pressure 104/67 (07/30/2024 15:39) Pulse 86 (07/30/2024 15:39) Respiration 20 (07/30/2024 15:39) Pain 4 (07/30/2024 15:39) BMI BMI: 35.3 Weight 211.4 lb [95.89 kg] (07/30/2024 15:39) Pulse Oximetry 96% (07/30/2024 15:39) ASSISTIVE DEVICES: REVIEW OF SYSTEMS: CONSTITUTIONAL: No fevers, chills, weight loss/gain ENT: No sore throat, sneezing, congestion, rhinorrhea, anosmia, or ageusia. CARDIOVASCULAR: No chest pain, palpitations, + bilateral lower extremity edema RESPIRATORY: No SOB, cough, sputum, wheeze. GASTROINTESTINAL: Denies abd pain, N/V/D. No melena or hematochezia. No tenesmus or constipation. GENITOURINARY: No burning micturition. No urinary frequency or urgency. No nocturia. MUSCULOSKELETAL: + Chronic arthralgia PSYCHIATRIC: No new anxiety or depression. No sleep disturbance. NEUROLOGIC: + Neuropathy EXAMINATION General: Well-appearing in no obvious distress. Mental Status: Alert and oriented x4. Head: Normocephalic. Eyes: PERRLA. EOMI. Anicteric sclerae. Neck: Supple. CV: Heart irregularly irregular rate and rhythm NL S1S2 no S3 or murmur EXT: R>L lower legs w/ generalized edema 1-2+ pitting, specialty shoes on with stockings CDI. Charcot foot disease, left foot wound not examined at this visit Neuro: grossly intact, significant neuropathy feet Derm: +hemosiderin staining to BLLE ALLERGIES: ========= LISINOPRIL, METFORMIN >> HEALTH MAINTENANCE PREVENTIVE MEDICINE GOALS Medication Reconciliation DUE NOW (Optional) Whole Health Documentation DUE NOW ASSESSMENT/PLAN: Active problems - Computerized Problem List is the source for the followin. Diabetic foot ulcer 2. Spinal stenosis 3. Basal Cell Carcinoma of Skin ([facility] [id number]) 4. Parkinson's disease 5. Diabetes Mellitus Type 2 ([facility] [id number]) 6. HTN - Hypertension ([facility] [id number]) 7. History of malignant melanoma of the skin 8. AF- Atrial Fibrillation ([facility] [id number]) 9. Permanent cardiac pacemaker 10. Lymphedema of leg 11. Tremor == Tremor: Patient restarted taking medication prescribed previously and will follow-up with community care neurology for further recommendation == Swelling of right lower extremity: Known history of lymphedema of leg and currently on a blood thinner, unlikely blood clot . Review of chart reveals longstanding edema with right greater than left swelling. However Dennison states the right is much more swollen at this time over the last week. Due to the acute change will get ultrasound == Charcot foot: Will be following up with [facility] for new cam walker == Diabetic foot ulcer: Continue with wound care == Reduced mobility: Needs occupational therapy evaluation for possible ramp at home == Diabetes: A1c 6.0. Continues on glimepiride . Previously advised to stop glimepiride and start Sitagliptin however Dennison refused and started taking his old medication again. We discussed the risks of hypoglycemia, Dennison is aware == Atrial fibrillation: On apixaban 5 mg twice daily and metoprolol 50 mg twice daily. Rate is usually 90-100. He has pacemaker in place == Hypertension: Well-controlled on current medications FOLLOW UP: RTC Below & sooner PRN UPCOMING APPOINTMENTS: 08/07/2024 13:00 COM CARE-NEUROLOGY 10/07/2024 14:30 CWM/GO/DERMATOLOGY A 07/01/2025 14:00 NHM/OPTOMETRY/DONALDSON/ minutes spent in patient evaluation, data review, and patient education. All medications were reconciled during this visit. No barriers; Patient understands and agrees to current treatment plan. If pt has any questions, concerns, or changes in current health status he/she will call or come in to the [place]. /kasia/ LENORA DEJESUS MD PHYSICIAN Signed: 08/02/2024 12:28 08/02/2024 ADDENDUM STATUS: COMPLETED consult placed pending review and signing by PCP /kasia/ CHRISTOPHER COLLINS LPN LICENSED PRACTICAL NURSE Signed: 08/02/2024 13:54 LENORA DEJESUS ([facility]) Jul 30, 2024 03:51 PM PHYSICIAN NOTE: LOCAL TITLE: NOTE STANDARD TITLE: PHYSICIAN NOTE DATE OF NOTE: JUL 30, 2024@15:51 ENTRY DATE: JUL 30, 2024@15:51:57 AUTHOR: LENORA DEJESUS EXP COSIGNER: URGENCY: STATUS: COMPLETED NOTE Has ADDENDA PRIMARY CARE VISIT MUKUL KAY, is a 83 yo WHITE MALE who [place] at the [place] [facility]. TYPE OF VISIT: face to face 83-year-old male with a past medical history of atrial fibrillation on Eliquis s/p pacemaker, diabetes mellitus, Parkinson disease, hypertension, left 2nd toe amputation, Charcot foot, left lower extremity cellulitis nephrolithiasis, he follows with the wound clinic for chronic ulcerations and wounds of his lower extremities secondary to Charcot disease. Having difficulty at home with stairs, usually needs to climb about 12-15 steps and his risk for falls. Chronic lymphedema of the lower extremities with right greater than left however he states the right leg has become much more swollen over the last week. He has significant neuropathy therefore is unable to recognize pain Recent labs and all medications were reconciled during this visit. HISTORY: PERIOD OF SERVICE - [employer] FROM May TO Jul COMBAT SERVICE INDICATED: No VITAL SIGNS: Temperature 97.6 F [36.4 C] (07/30/2024 15:39) Blood Pressure 104/67 (07/30/2024 15:39) Pulse 86 (07/30/2024 15:39) Respiration 20 (07/30/2024 15:39) Pain 4 (07/30/2024 15:39) BMI BMI: 35.3 Weight 211.4 lb [95.89 kg] (07/30/2024 15:39) Pulse Oximetry 96% (07/30/2024 15:39) ASSISTIVE DEVICES: REVIEW OF SYSTEMS: CONSTITUTIONAL: No fevers, chills, weight loss/gain ENT: No sore throat, sneezing, congestion, rhinorrhea, anosmia, or ageusia. CARDIOVASCULAR: No chest pain, palpitations, + bilateral lower extremity edema RESPIRATORY: No SOB, cough, sputum, wheeze. GASTROINTESTINAL: Denies abd pain, N/V/D. No melena or hematochezia. No tenesmus or constipation. GENITOURINARY: No burning micturition. No urinary frequency or urgency. No nocturia. MUSCULOSKELETAL: + Chronic arthralgia PSYCHIATRIC: No new anxiety or depression. No sleep disturbance. NEUROLOGIC: + Neuropathy EXAMINATION General: Well-appearing [place] in no obvious distress. Mental Status: Alert and oriented x4. Head: Normocephalic. Eyes: PERRLA. EOMI. Anicteric sclerae. Neck: Supple. CV: Heart irregularly irregular rate and rhythm NL S1S2 no S3 or murmur EXT: R>L lower legs w/ generalized edema 1-2+ pitting, specialty shoes on with stockings CDI. Charcot foot disease, left foot wound not examined at this visit Neuro: grossly intact, significant neuropathy feet Derm: +hemosiderin staining to BLLE ALLERGIES: ========= LISINOPRIL, METFORMIN >> HEALTH MAINTENANCE PREVENTIVE MEDICINE GOALS Medication Reconciliation DUE NOW (Optional) Whole Health Documentation DUE NOW ASSESSMENT/PLAN: Active problems - Computerized Problem List is the source for the followin. Diabetic foot ulcer 2. Spinal stenosis 3. Basal Cell Carcinoma of Skin ([facility] [id number]) 4. Parkinson's disease 5. Diabetes Mellitus Type 2 ([facility] [id number]) 6. HTN - Hypertension ([facility] [id number]) 7. History of malignant melanoma of the skin 8. AF- Atrial Fibrillation ([facility] [id number]) 9. Permanent cardiac pacemaker 10. Lymphedema of leg 11. Tremor == Tremor: Patient restarted taking medication prescribed previously and will follow-up with community care neurology for further recommendation == Swelling of right lower extremity: Known history of lymphedema of leg and currently on a blood thinner, unlikely blood clot . Review of chart reveals longstanding edema with right greater than left swelling. However states the right is much more swollen at this time over the last week. Due to the acute change will get ultrasound == Charcot foot: Will be following up with [facility] for new cam walker == Diabetic foot ulcer: Continue with wound care == Reduced mobility: Needs occupational therapy evaluation for possible ramp at home == Diabetes: A1c 6.0. Continues on glimepiride . Previously advised to stop glimepiride and start Sitagliptin however refused and started taking his old medication again. We discussed the risks of hypoglycemia, [place]enn[place] is aware == Atrial fibrillation: On apixaban 5 mg twice daily and metoprolol 50 mg twice daily. Rate is usually 90-100. He has pacemaker in place == Hypertension: Well-controlled on current medications FOLLOW UP: RTC Below & sooner PRN UPCOMING APPOINTMENTS: 08/07/2024 13:00 COM CARE-NEUROLOGY 10/07/2024 14:30 CWM/GO/DERMATOLOGY A 07/01/2025 14:00 NHM/OPTOMETRY/[place]ON/ minutes spent in patient evaluation, data review, and patient education. All medications were reconciled during this visit. No barriers; Patient understands and agrees to current treatment plan. If pt has any questions, concerns, or changes in current health status he/she will call or [facility]. 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 SERVICE please enter occupational therapy consultation for home assessment regarding possible ramp /kasia/ LENORA DEJESUS MD PHYSICIAN Signed: 08/02/2024 12:29 Receipt Acknowledged By: * AWAITING SIGNATURE * TODD DANIELS 08/02/2024 13:54 /daphney COLLINS LPN LICENSED PRACTICAL NURSE 08/02/2024 ADDENDUM STATUS: COMPLETED consult placed pending review and signing by PCP /daphney COLLINS LPN LICENSED PRACTICAL NURSE Signed: 08/02/2024 13:54 LENORA DEJESUS ([facility]) Jul 30, 2024 03:41 PM PREVENTIVE MEDICIN E NURSING NOTE: LOCAL TITLE: CLINICAL REMINDERS/NURSING STANDARD TITLE: PREVENTIVE MEDICINE NURSING NOTE DATE OF NOTE: JUL 30, 2024@15:41 ENTRY DATE: JUL 30, 2024@15:41:07 AUTHOR: CHRISTOPHER COLLINS EXP COSIGNER: URGENCY: STATUS: COMPLETED Falls & Incontinence Screen: Falls Screen: 4. No falls within the past year. Incontinence Screen No incontinence. RSV Immunization: Defer due to a PRECAUTION Reason: none availabe in clinic Advance Directive Screen MH AD: Patient has an up-to-date Advance Directive at an outside, non-[facility] facility and was asked to forward a copy to his/her clinician. Suicide Screen: C-SSRS Screening [place] Suicide Severity Rating Scale (C-SSRS) screener 1. [...] Not worried about housing near future The [place] reports the following: Within the past 12 months, you worried whether your food would run out before you got money to buy more. Never true Within the past 12 months, the food you bought just didn't last and you didn't have money to get more. Never true Alcohol Use Screen (AUDIT-C): Alcohol Screen: SCREEN FOR ALCOHOL (AUDIT-C) An alcohol screening test (AUDIT-C) was negative (score=0). 1. How often did you have a drink containing alcohol in the past year? Consider a drink to be a 12 ounce can or bottle of regular beer, 8 ounces of malt liquor, a 5 ounce glass of table wine, or a 1.5 ounce shot of liquor (like scotch, gin, or vodka). Never 2. How many drinks containing alcohol did you have on a typical day when you were drinking in the past year? Response not required due to responses to other questions. 3. How often did you have six or more drinks on one occasion in the past year? Response not required due to responses to other questions. Sexual Orientation: The patient thinks of their sexual orientation as: Straight or Heterosexual RHS Screen: RHS Screen Session Format: Face [...] full rights to use it throughout the [place] system. PRIMARY SCREEN RESULT: The Primary Screen [...] barriers to learning were observed or identified. /kasia/ CHRISTOPHER COLLINS LPN LICENSED PRACTICAL NURSE Signed: 07/30/2024 15:46 CHRISTOPHER COLLINS ([facility])
--- OUTSIDE RECORDS SUMMARY | 2024-08-07 12:25 | XMS_ITS | Encounter Summary ---
Author Name [facility] [place] [facility] [place] Address [address] [place] [address] Care Team Providers Care Seafood Farmer Name Role Phone LENORA DEJESUS Primary Care [...] Jul 31, 2014 MEDICAR E SUPPLEM E [id number] [phone] FR GAMALIEL KAY PATIENT [facility] MEDICARE SUPPLEMEN EVANGELISTA MEDIC ARE SUPP Jul 31, 2014 SUPP [id number] [phone] FR GAMALIEL KAY PATIENT MEDICARE (WNR) MEDICARE (M) PART A Jan 29, 2004 PART A [id number] [phone] FR GAMALIEL KAY PATIENT MEDICARE (WNR) MEDICARE (M) PART B Jan 29, 2004 PART B [id number] [phone] FR GAMALIEL KAY PATIENT [facility] (WNR) MEDICARE ADVANTAGE [facility]) Jul 31, 2023 [id number] [phone] FR GAMALIEL KAY PATIENT [facility] MCR (WNR) MEDICARE ADVANTAGE MCR (WNR) Jul 31, 2023 [id number] [phone] FR GAMALIEL KAY PATIENT Selected Encounter This section includes the information on record at [place] for the Encounter. Date/Time Encounter Type Encounter Description Reason Pro vider Source Jul 22, 2024 01:20 PM Outpatient Encounter PRIMARY CARE/MEDICINE IHE Encounter Template Text not used by [place] Plan of Treatment: Future Appointments (+ 6 months) and Future Tests (+/- 45 days) The Plan of Treatment section includes future care activities for the patient from all [place] [facility]. This section includes future appointments and future orders which are active, pending or scheduled. Future Appointments This section includes appointments that were scheduled to occur 6 months from the date of the Encounter, up to a maximum of 20 appointments. The data comes from all [facility]. Appointment Date/Time Appointment Type Appointme nt Facility Name Jul 30, 2024 03:30 PM AMBULATORY - MEDICINE [facility] ([facility]) Aug 07, 2024 01:00 PM AMBULATORY - MEDICINE [facility] [place] [facility] Aug 14, 2024 10:00 AM [facility] [place] [facility] Sep 02, 2024 03:30 PM AMBULATORY - MEDICINE [facility] [place] [facility] Sep 18, 2024 11:00 AM AMBULATORY - MEDICINE [facility] ([facility]) Oct 07, 2024 02:30 PM [facility]UL[facility] - [facility] Active, Pending, and Scheduled Orders This section includes a listing of several types of active, pending, and scheduled orders, including clinic medications orders, diagnostic test orders, procedure orders and consult orders; where the start date of the order is 45 days before the date of the Encounter or 45 days after the date of theEncounter. The data comes from all [facility]. Test Date/Time Test Type Test Details Facility Name Jun 11, 2024 04:42 PM Consult Order COMMUNITY CARE-WOUND Cons [facility] Dispatcher's Choice [place] ([facility]) Jun 28, 2024 03:50 PM Consult Order PROSTHETIC S REQUEST Cons Auto [facility] Dispatcher[facility] ([facility]) Aug 02, 2024 02:01 PM Consult Order COMMUNITY CARE-OCCUPATIONAL THERAPY Cons [facility] [place] ([facility]) Aug 07, 2024 09:59 AM Laboratory - Chemi stry Order HEMOGLOBIN A1C PANEL BLOOD (LAV-BLOOD) [facility] ([facility]) Aug 07, 2024 09:59 AM Laboratory - Chemi stry Order CBC AND DIFF (AUTO) BLOOD (LAV-BLOOD) [facility] ([facility]) Aug 07, 2024 09:59 AM Laboratory - Chemi stry Order BASIC METABOLIC PANEL (non-fasting) BLOOD (SST-SERUM) [facility] ([facility]) Aug 14, 2024 10:30 AM Imaging - Ultrasou nd Order DUPLEX SCAN: EXTREMITY VEINS, UNILATERAL [place] ([facility]) Encounter Notes: All associated encounter notes This section contains the clinical notes associated to the Encounter. Date/Time Encounter Note(s) Provider Source Jul 22, 2024 01:20 PM NONVA NOTE: LOCAL TITLE: [place] MEDICAL RECORD SUMMARY STANDARD TITLE: NONVA NOTE DATE OF NOTE: JUL 22, 2024@13:20 ENTRY DATE: JUL 22, 2024@13:20:14 AUTHOR: TODD DANIELS EXP COSIGNER: URGENCY: STATUS: COMPLETED COPIED & PASTED FROM [facility] NURSE NOTE [facility] Nurse Date of Encounter: 07/22/24 Author: Abigail Mares RN I have seen a mutual patient, Erich aKy ( 44) at his home for a wellness visit. I wanted to send over his fasting blood sugar POC and Vital signs from my visit today, for your records. Blood glucose POC (fasting): 186 Vital signs: 98.4, HR 100s, RR 20, BP 118/72, 98% RA His lungs were clear and his heart rate was irregular. He has increased lower ext edema (right greater than left), is continuing to wear compression sock on right leg. No SOB, no palpitations or chest discomfort, no increased weakness/fatigue. Jose continues with his 2-3Xweekly DSD changes to his left foot wound-he is being followed weekly by the wound clinic at this time. /kasia/ TODD DANIELS, FAMILIA REGISTERED NURSE Signed: 07/22/2024 13:21 Receipt Acknowledged By: 07/25/2024 14:31 /kasia/ LENORA DEJESUS MD PHYSICIAN TODD DANIELS ([facility])
--- OUTSIDE RECORDS SUMMARY | 2024-08-07 12:25 | XMS_ITS ---
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 Name Role Phone LENORA DEJESUS Primary [...] Jul 31, 2014 MEDICAR E SUPPLEM E [id number] [phone] FR GAMALIEL KAY PATIENT [facility] MEDICARE SUPPLEMEN [place] MEDIC ARE SUPP Jul 31, 2014 SUPP [id number] [phone] FR GAMALIEL KAY PATIENT MEDICARE (WNR) MEDICARE (M) PART A Jan 29, 2004 PART A [id number] [phone] FR GAMALIEL KAY PATIENT MEDICARE (WNR) MEDICARE (M) PART B Jan 29, 2004 PART B [id number] [phone] FR GAMALIEL KAY PATIENT [facility] (WNR) MEDICARE ADVANTAGE [facility] ([place]) Jul 31, 2023 [id number] [phone] RAHUL, GAMALIEL PATIENT [facility] MCR (WNR) MEDICARE ADVANTAGE MCR (WNR) Jul 31, 2023 [id number] [phone] FR GAMALIEL KAY PATIENT Selected Encounter This section includes the information on record at [place] for the Encounter. Date/Time Encounter Type Encounter Description Reason Pro vider Source May 10, 2024 12:00 PM Outpatient Encounter COMMUNITY CARE CONSULT [...] 2024 02:00 PM AMBULATORY - MEDICINE [facility] Jun 12, 2024 11:00 AM AMBULATORY - MEDICINE [facility] ([facility] Jun 19, 2024 01:00 PM [place] [facility] [place] [facility] Jun 25, 2024 02:30 PM [place] [facility] [place] [facility] Jul 30, 2024 03:30 PM AMBULATORY - MEDICINE [facility] Aug 07, 2024 01:00 PM AM[place] - [place] [facility] [place] [facility] Aug 14, 2024 10:00 AM AMBULATORY - NONE [place] [facility] [place] [facility] Sep 02, 2024 03:30 PM AM[place] [facility] [place] [facility] Sep 18, 2024 11:00 AM AMBULATORY - MEDICINE [facility] ([facility] Oct 07, 2024 02:30 PM AM[place]ORY - [place]ICINE [place] [facility] [place] [facility] Active, Pending, and Scheduled Orders This [...] 04:42 PM Consult Order COMMUNITY CARE-WOUND Cons [facility] ([facility]) Encounter Notes: All associated encounter notes This section contains the clinical notes associated to the Encounter. Date/Time Encounter Note(s) Provider Source May 10, 2024 12:00 PM NONVA CONSULT: LOCAL TITLE: COMMUNITY CARE-CONSULT RESULT NOTE STANDARD TITLE: NONVA CONSULT DATE OF NOTE: MAY 10, 2024@12:00 ENTRY DATE: AUG 06, 2024@11:48:13 AUTHOR: DAVID MEEK EXP COSIGNER: URGENCY: STATUS: COMPLETED VistA Imaging - Scanned Document SCANNED DOCUMENT SIGNATURE NOT REQUIRED Electronically Filed: 08/06/2024 by: DAVID MEEK MEDICAL ELECTRICAL CONTINUITY INSPECTOR DAVID MEEK [place] [facility]
--- OUTSIDE RECORDS SUMMARY | 2024-08-07 12:25 | XMS_ITS | Data Portability ---
Author Organization [place] - [facility], [facility] [employer] Repairer Address [address] [place] [address] Care Team Providers Care Barbering Instructor Name Role Phone [facility]OUT[facility]) OT [facility] OTHER [facility] OTHER Assessment No assessment recorded. Plan of Treatment Reminders Order Date Submit Date Provider Last Modified By Organization Details Last Modified Time Details Appointments None recorde d. 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 [id number], pt status: OUTPATI ENT [email or web address] - Lab, [address] [place], [address], 14:57:46 Referral podiatr ist referra l 2021 022 [email or web address] Radha Goddard DPM, [address] [place] [address], [place], [address], 11:09:59 Procedures None recorde d. Surgeries None recorde d. Imaging US, thyroid - [place] patient . Prefers ays. 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 2021 022 [facility] (Central Scheduling), [address] [place] [address], [address], 2 09:37:25 US, thyroid - Yair Portillo patient , mary johansen noted multino dular goiter on recent neck CT 2021 022 [facility] (Central Scheduling), [address] [facility], [place], [address], 2 16:25:12 Medication Orders Augment in 875 mg-125 mg tablet 2021 022 [facility], [address] [facility], [place], [address], 13:28:16 Patient TargetsNo targets recorded. Patient InstructionsNo instructions recorded. Reason for Referral Drafter Civil Referral for Type 2 diabetes mellitus diabetic foot care (known ulcers, amputation of L 2nd toe for osteomyelitis in 11/2021) Referring Physician: Amrit Coreas, Internal Medicine, [phone] Encounter Date: 02/18/2022 Results Created Date Observation Date Name Description Value Unit Range Abnormal Flag Note LastModifiedBy Organization Detail LastModifiedTime 06/06/2006/07/2022 RAPID RESP PANEL W/COV ID-19 adenovirus Not Detect ed notdet ected Not Available [address], [address], 06/07/2022 11:20:12 06/06/20 22 06/07/2022 RAPID RESP PANEL W/COV ID-19 coronavirus 229E Not Detect ed notdet ected Not Available [facility] [address] [place] [address], [address], 06/07/2022 11:20:12 06/06/20 22 06/07/2022 RAPID RESP PANEL W/COV ID-19 coronavirus hku1 Not Detect ed notdet ected Not Available [address], [address], 06/07/2022 11:20:12 06/06/20 22 06/07/2022 RAPID RESP PANEL W/COV ID-19 coronavirus nl63 Not Detect ed notdet ected Not Available [address], [address], 06/07/2022 11:20:12 06/06/20 22 06/07/2022 RAPID RESP PANEL W/COV ID-19 coronavirus oc43 Not Detect ed notdet ected Not Available [address], [address], 06/07/2022 11:20:12 06/06/20 22 06/07/2022 RAPID RESP PANEL W/COV ID-19 human metapneumovi bethany Not Detect ed notdet ected Not Available [address], [address], 06/07/2022 11:20:12 06/06/20 22 06/07/2022 RAPID RESP PANEL W/COV ID-19 human rhinovirus/e nterovirus Not Detect ed notdet ected Not Available [address], [address], 06/07/2022 11:20:12 06/06/20 22 06/07/2022 RAPID RESP PANEL W/COV ID-19 influenza A Not Detect ed notdet ected Not Available [address], [address], 06/07/2022 11:20:12 06/06/20 22 06/07/2022 RAPID RESP PANEL W/COV ID-19 influenza B Not Detect ed notdet ected Not Available [address], [address], 06/07/2022 11:20:12 06/06/20 22 06/07/2022 RAPID RESP PANEL W/COV ID-19 parainfluenz a virus 1 Not Detect ed notdet ected Not Available [address], [address], 06/07/2022 11:20:12 06/06/20 22 06/07/2022 RAPID RESP PANEL W/COV ID-19 parainfluenz a virus 2 Not Detect ed notdet ected Not Available [address], [address], 06/07/2022 11:20:12 06/06/20 22 06/07/2022 RAPID RESP PANEL W/COV ID-19 parainfluenz a virus 3 Not Detect ed notdet ected Not Available [address], [address], 06/07/2022 11:20:12 06/06/20 22 06/07/2022 RAPID RESP PANEL W/COV ID-19 parainfluenz a virus 4 Not Detect ed notdet ected Not Available [address], [address], 06/07/2022 11:20:12 06/06/20 22 06/07/2022 RAPID RESP PANEL W/COV ID-19 respiratory syncytial virus Not Detect ed notdet ected Not Available [address], [address], 06/07/2022 11:20:12 06/06/20 22 06/07/2022 RAPID RESP PANEL W/COV ID-19 bordetella pertussis Not Detect ed notdet ected Not Available [address], [address], 06/07/2022 11:20:12 06/06/20 22 06/07/2022 RAPID RESP PANEL W/COV ID-19 bordetella parapertussi s Not Detect ed notdet ected Not Available [address], [address], 06/07/2022 11:20:12 06/06/20 22 06/07/2022 RAPID RESP PANEL W/COV ID-19 chlamydophil a pneumoniae Not Detect ed notdet ected Not Available [address], [address], 06/07/2022 11:20:12 06/06/20 22 06/07/2022 RAPID RESP PANEL W/COV ID-19 mycoplasma pneumoniae Not Detect ed notdet ected Not Available [address] [address] [place], [address], 06/07/2022 11:20:12 06/06/20 22 06/07/2022 RAPID RESP PANEL W/COV ID-19 sars-cov-2 RNA Not Detect ed notdet ected Not Available [facility] [address] [place], [address], 06/07/2022 11:20:12 05/19/20 22 05/19/2022 US, thyro id [facility] Diagno stic Imagin g [address] [address] Ultras ound Report Signed Francois t: Cedric Godwin 0173 : [address]: Nova Coreas MD EMR ID: [id number] Age/Se x: 81/M E.D. Attend ing: Acct: [id number] Loc: RAD.NA PCP: Nova Coreas MD Admit/ Svc Date: Orderi ng Physic osvaldo: Nova Coreas MD Date of Servic e: Proced ure(s) : US thyroi d Reason for Exam: thyroi d noduel Access ion Number (s): [id number] Signif icant Fax to: cc: Nova Coreas MD THYROI D ULTRAS OUND, 2021 1:34 PM CLINIC AL INDICA TION: 81 years old. Male. thyroi d noduel . TECHNI QUE: Thyroi d ultras ound is perfor med in the axial and sagitt al planes with color Dopple r supple mentat ion using a linear transd ucer. COMPAR DEREK: None. FINDIN GS: Right lobe: 5.2 x 3.3 x 2.7 cm. Left lobe: 3.8 x 3.7 x 2.0 cm. Isthmu s: 0.3 cm AP thickn ess. Nodule s: Right mid pole nodule measur ing 1.5 x 1.0 x 1.2 cm: solid, isoech oic, wider- than-t all, ill-de fined margin s, with no echoge luis foci. TI-RAD S 3 - Mildly suspic ious (FNA >= 2.5 cm, Follow >= 1.5 cm). Left shelby medial mid pole nodule measur ing 2.1 x 1.2 x 1.5 cm: solid, hypoec hoic, wider- than-t all, smooth margin s, with no echoge luis foci. TI-RAD S 4 - Modera tely Suspic ious (FNA > = 1.5 cm, Follow >= 1.0 cm). Left rn night ior midpol e nodule measur ing 1.5 x 1.1 x 1.2 cm: solid, isoech oic, wider- than-t all, smooth / ill-de fined margin s, with no echoge luis foci. TI-RAD S 3 - Mildly suspic ious (FNA >= 2.5 cm, Follow >= 1.5 cm). Left shelby latera l midpol e nodule measur ing 1.3 x 1.1 x 1.0 cm: solid, hypoec hoic, taller -than- wide, smooth margin s, with no echoge luis foci. TI-RAD S 5 - Highly Suspic ious (FNA > 1.0 cm; Follow >= 0.5 cm). Lymph nodes: No abnorm al cervic al lymph nodes were demons trated . IMPRES RADHA: * Multip le thyroi d nodule s as detail ed above. Ultras ound guided fine needle aspira tion recomm ended for 2.1 cm left shelby medial midpol e TI-RAD S 4 nodule and 1.3 cm left shelby latera l midpol e TI-RAD S 5 nodule . REFERE NCE: ACR Thyroi d Elizabeth g, Report ing, and Data System (Ti-RA DS): White Paper of the ACR Ti-RAD S Commit MARIA M hall November 2016, vol 14, pp 587-59 5. This repres ents test value SIGNIF ICANT. This report will be commun icated to the provid er or flagge d in the ER (Peer Clair system ) for review by the ED after the report is signed by the radiol ogist. If the report is read on a d or y, it will then be commun icated to the referr ing adam riley/isabel rojo on the follow ing rob . Statio n: [id number]-[id number] Electr onical ly signed on at 0931 by Hayden Sosa MD. KFALKO WSKI [facility] (Radiology) [address] [place] [address], [address], 05/19/2022 17:00:34 06/09/2006/09/2022 fine needl e aspir ation , ultra sound guide d, thyro id (PROC ) [facility] Diagno stic Imagin g [facility] [address] [address] Ultras ound Report Signed Patipito t: Cedric Godwin 0173 : [address]: Eliezer mann MD EMR ID: [id number] Age/Se x: 81/M E.D. Attend ing: Acct: [id number] Loc: IUR.BE PCP: Nova Coreas MD Admit/ Svc Date: Orderi lucia Vasquez osvaldo: MASON Arrington Date of Servic e: Proced ure(s) : US biopsy thyroi d Reason for Exam: LEFT THYROI D NODULE S Access ion Number (s): [id number] Fax to: cc: Sarah Stringer, TECHNICAL ILLUSTRATIONS MAP INKER Ultras ound Guided Fine Needle Aspira tion of the 2 adjace nt left thyroi d nodule s. Compar derek: Octobe r 2021 Descri ption: The proced ure, includ ing risks and benefi ts, was discus sed with the patien t. Inform ed consen t obtain ed. Team time-o ut perfor med to desi velazco patien t, proced ure, and site. Neck preppe d and draped in the usual steril e manner . Local anesth esia with edy sanchez. Multip le fine needle aspira te sample s of the both target nodule s in the left thyroi d gland were obtain ed with 26 gauge needle s under sonogr aphic guidan ce. 5 passes perfor med. Sample s to [facility]. 1 of the passes submit baljit for possib le future Afirma testin g. No immedi ate compli cation s. Impres radha: Ultras ound guided fine needle aspira tion of 2 separa te but adjace nt thyroi d nodule s in the left thyroi d. The result s of this biopsy /FNA will be issued in a separa te report by the Depart ment Of Pathol [facility]. If the result s were unsati sfacto ry or indete rminat e, a repeat proced ure may be requir ed. If the result s are benign , a one year follow up ultras ound exam (or sooner if there is enlarg ement) is requir ed as there is still a small chance of malign kemal. Statio n: [id number] Electr onical ly signed on at 0823 by Eliezer mann MD. JTROOP [email or web address] [facility] (Radiology) [address] [place] [address], [address], 06/20/2022 09:42:00 Result Notes None recorded. Problems Name Problem SNOMED Code Status Onset Date Resolution Date Notes Provider Name and Address Organization Details Recorded Time Type 2 diabetes mellitus 17467108 Active 2021 Analy Christopher [address] [place] [address], [address], [facility] 2 12:07:20 Essential hypertens ion 49507528 Active 2021 Analy Christopher [address] [place], [address], [facility] 2 12:07:27 Parkinson 's disease 77985143 Active 2021 Analy Christopher [address] [place] [address], [address], [facility] 2 12:07:37 Atrial fibrillat ion 77936969 Active 2021 Analy Christopher [address] [place] [address], [address], [facility] 2 12:07:47 Anxiety 42483803 Active 2021 Analy Christopher [address] [place] [address], [address], [facility] 2 12:07:55 Osteomyel itis 07167766 Active 2021 of toe of left foot Analy Christopher [address] [place] [address], [address], [facility] 2 12:16:41 Hyperlipi demia 25374909 Active 2021 Analy Christopher [address] [place] [address], [address], [facility] 2 12:16:56 Thyroid nodule 817390786 Active 2021 AMRIT COREAS MD [address] [place] [address], [address], [facility] 2 14:44:46 Celluliti s of right lower limb 845816570967 47546 Active 2021 AMRIT COREAS MD [address] [place] [address], [address], [facility] 2 14:44:48 Osteomyel itis of left foot 006150170905 9107 Active 2021 AMRIT COREAS MD [address] [place] [address], [address], [facility] 2 14:44:50 Dysthymia 34193781 Active 2022 AMRIT COREAS MD [address] [place] [address], [address], [facility] 3 13:55:55 Dizziness 607767484 Active 2022 AMRIT COREAS MD [address] [place] [address], [address], [facility] [employer] [facility] 3 13:55:56 Problem Notes None recorded. Procedures Surgical History Date Name Laterality Status Provider Name and Address Organization Details Recorded Time Cataract Surgery completed Analy jeffrey [address] [place], [address], [facility] 02/18/2022 12:21:41 Hip replacement - total completed Analy Christopher [address] [place], [address], [facility] 02/18/2022 12:22:19 Tonsillectomy completed Analy Jaureguiroseanna er [address] [place], [address], [facility] 02/18/2022 12:22:26 implantation of cardiac pacemaker completed Analy Christopher [address] [place], [address], [facility] 02/18/2022 12:23:51 Imaging Results Imaging Date Name Status LastModified by Organiz ation Details LastModified Time 05/19/2022 US, thyroid completed [email or web address] [facility] (Radiology) [address] [place] [address], [address], 05/19/2022 17:00:34 06/09/2022 fine needle aspiration, ultrasound guided, thyroid (PROC) completed [email or web address] [facility] (Radiology) [address] [place] [address], [address], 06/20/2022 09:42:00 Procedure Notes None recorded. Medical Equipment None Reported. Allergies Allergen ID Allergen Name Allergen Category Reaction Reaction Severity Criticality Documentation Date Start Date Code Code System Note Provider Name and Address Organization Details Recorded Time 910932 lisinopri l medicatio n angioedem a severe high 02/18/2022 11621 RxNorm requi red intub ation in hospi kristie AMRIT COREAS MD [address] [place], [address], [facility] [employer] [facility] 2 12:58:41 Medications Name Sig Start Date Stop Date Status Note LastModified by Organization Details LastModified Time primidone 50 mg tablet TAKE 1 TABLET BY MOUTH TWICE DAILY 02/18 completed Not Available Not Available Not Available Colace 100 mg capsule Take 1 capsule twice a day by oral route. active Not Available Not Available No t Available warfarin 2.5 mg tablet TAKE 1 TABLET BY MOUTH ON MONDAY, MONDAY, MONDAY , AND 03/23 completed Not Available Not Available Not Available digoxin 250 mcg (0.25 mg) tablet TAKE 1 TABLET BY MOUTH ONCE DAILY 02/18 completed Not Available Not Available Not Available glimepiride 1 mg tablet Take 1 tablet every day by oral route. active Not Available Not Available No t Available cephalexin 500 mg capsule TAKE 1 CAPSULE BY MOUTH 4 TIMES DAILY FOR 10 DAYS 02/18 completed Not Available Not Available Not Available warfarin 5 mg tablet TAKE 1 TABLET BY MOUTH ON MONDAY, MONDAY, AND 02/18 completed Not Available Not Available Not Available furosemide 20 mg tablet TAKE 1 TABLET BY MOUTH ONCE DAILY 09/14 completed Not Available Not Available Not Available Digoxin-Tab 0.25 mg tablet Take 1 tablet every day by oral route. active Not Available Not Available No t Available lisinopril 2.5 mg tablet TAKE 1 TABLET BY MOUTH ONCE DAILY 02/18 completed Not Available Not Available Not Available doxycycline hyclate 100 mg tablet TAKE 1 TABLET BY MOUTH THREE TIMES DAILY FOR 10 DAYS 05/11 completed Not Available Not Available Not Available amoxicillin 875 mg-potassiu m clavulanate 125 mg tablet TAKE 1 TABLET BY MOUTH EVERY 12 HOURS FOR 14 DAYS 03/23 completed Not Available Not Available Not Available metoprolol tartrate 25 mg tablet TAKE 1 TABLET BY MOUTH TWICE DAILY active Not Available Not Available No t Available senna 8.6 mg capsule Take 1 capsule every day by oral route. 02/18 completed Not Available Not Available Not Available carbidopa 25 mg-levodopa 100 mg disintegrat ing tablet Place 2 tablets 3 times a day by transling ual route. active Not Available Not Available No t Available multivitami n active Not Available Not Available Not Available FreeStyle Lite Strips USE 1 STRIP TO CHECK GLUCOSE ONCE DAILY active Not Available Not Available No t Available Eliquis 5 mg tablet Take 1 tablet twice a day by oral route. active Not Available Not Available No t Available Liquacel 16 gram-100 kcal/30 mL oral liquid Take by oral route. 02/18 completed Not Available Not Available Not Available Vitals Date Recorded Heart rate Oxygen saturation Oxygen saturation in Arterial blood by Pulse oximetry Respiratory rate Body temperature Body height Body mass index (BMI) Body weight Systolic blood pressure Diastolic blood pressure Provider Name and Address Organization Details Last Updated DateTime 2 88 /min 96 % 96 % 16 /min 97.5 [degF] 172.72 cm 28.4 kg/m2 01647.7 7 g 110 mm[Hg] 72 mm[Hg] Analy Christopher [address] [place], [address] [employer] [facility] 2 13:06:41 Date Recorded Body height Respiratory rate Heart rate Oxygen saturation Oxygen saturation in Arterial blood by Pulse oximetry Systolic blood pressure Diastolic blood pressure Provider Name and Address Organization Details Last Updated DateTime 2 172.72 cm 16 /min 83 /min 96 % 96 % 130 mm[Hg] 70 mm[Hg] Lisa Benz [facility] [employer] [facility] 2 13:27:29 Date Recorded Body height Respiratory rate Heart rate Oxygen saturation Oxygen saturation in Arterial blood by Pulse oximetry Systolic blood pressure Diastolic blood pressure Provider Name and Address Organization Details Last Updated DateTime 2 172.72 cm 16 /min 92 /min 93 % 93 % 130 mm[Hg] 70 mm[Hg] Lisa Benz [facility] [employer] [facility] 2 15:12:16 Date Recorded Body height Respiratory rate Body mass index (BMI) Body weight Heart rate Oxygen saturation Oxygen saturation in Arterial blood by Pulse oximetry Systolic blood pressure Diastolic blood pressure Provider Name and Address Organization Details Last Updated DateTime 3 172.72 cm 16 /min 30.2 kg/m2 77089.3 9 g 83 /min 95 % 95 % 132 mm[Hg] 72 mm[Hg] Lisa Benz [facility] [employer] [facility] 3 13:29:12 Social History Question Answer Notes LastModified by Organizat ion Details LastModified Time Tobacco Smoking Status Never Smoker Analy Christopher [address] [place], [address], [facility] [employer] [facility] 02/18/2022 13:12:06 What Is Your Level Of Alcohol Consumption? None Rare Information not available 02/18/2022 What Is Your Level Of Caffeine Consumption? Moderate 1-2 Cups Of Coffee Per Day [email or web address] Information not available 02/18/2022 What Was The Date Of Your Most Recent Tobacco Screening? 02/18/2022 [email or web address] Information not available 02/18/2022 Sex: Male Functional Status None recorded. Mental Status None recorded. Family History Relationship Description Onset Age of this Age Resolved Age Notes LastModified by Organization Details LastModified Time Father Mesothelioma (malignant, clinical disorder) [email or web address] Not available 2021 12:24:13 Father Alcoholism [email or web address] Not availa ble 02/18/2022 12:24:23 Father Hypertensive disorder [email or web address] Not available 2021 12:25:08 Mother Arthritis [email or web address] Not availab le 02/18/2022 12:24:34 Mother Cerebrovascu lar accident [email or web address] Not available 12:25:18 Brother Depressive disorder [email or web address] Not available 2021 12:24:56 Medical History No medical history recorded. Immunizations Vaccine Type Date Status Note Provider Nam e and Address Organization Details Recorded Time Tdap 12/28/19 14 completed Analy Christopher [address] [place] [address], [address], [facility] [employer] [facility] 02/22/2022 09:37:05 COVID-19 vaccine, vector-nr, rS-Ad26, PF, 0.5 mL 10/29/19 21 completed Analy Candi [address] [place] [address], [address], [facility] [employer] [facility] 02/22/2022 09:37:05 COVID-19, mRNA, LNP-S, PF, 100 mcg/0.5mL dose or 50 mcg/0.25mL dose 06/08/20 21 completed Analy Garciawler [address] [place] [address], [address], [facility] [employer] [facility] 02/22/2022 09:37:05 COVID-19, mRNA, LNP-S, PF, 30 mcg/0.3 mL dose 12/30/19 22 completed Analy [address], [address], [facility] 02/22/2022 09:37:05 Influenza, split virus, quadrivalent, PF 04/29/20 [address], [address], [facility] 02/22/2022 09:37:05 Influenza, MDCK, quadrivalent, PF 05/03/20 [address], [address], [facility] 02/22/2022 09:37:05 Influenza, split virus, quadrivalent, PF 04/16/20 [address], [address], [facility] 02/22/2022 09:37:05 Influenza, high-dose, quadrivalent, PF 05/19/20 20 completed Analy [address], [address], [facility] 02/22/2022 09:37:05 zoster live 11/29/19 17 completed Analy [address], [address], [facility] 02/22/2022 09:37:05 Influenza, split virus, trivalent, PF 05/19/20 14 completed Analy [address], [address], [facility] 02/22/2022 09:37:05 Influenza, high-dose, quadrivalent, PF 04/07/20 [address], [address], [facility] 02/22/2022 09:39:18 pneumococcal polysaccharide PPV23 05/08/20 01 completed Analy [address], [address], [facility] 02/22/2022 09:40:15 pneumococcal polysaccharide PPV23 06/14/20 13 completed Analy Christopher [address] [place] [address], [address], [facility] 02/22/2022 09:40:24 pneumococcal polysaccharide PPV23 10/04/19 15 completed Analy Christopher [address] [place] [address], [address], [facility] 02/22/2022 09:40:33 pneumococcal polysaccharide PPV23 05/30/20 17 completed Analy Christopher [address] [place] [address], [address], [facility] 02/22/2022 09:40:43 Td (adult) 09/01/19 04 completed Analy Christopher [address] [place] [address], [address], [facility] 02/22/2022 09:41:11 Past Encounters Encounter ID Performer Location Encounter Start Date Encounter Closed Date Diagnosis/Indication Diagnosis SNOMED-CT Code Diagnosis ICD10 Code Diagnosis Note [id number] AMRIT COREAS MD [address] [address] 02/18/2022 12:46:52 02/18/2022 13:54:34 Patient new to facility [id number] 12233 Z76.89 [facility] reviewed Osteomyeli tis of left foot [id number] 316601 M86.9 s/p amputation of left toe 12/28, seen in post-op visit with surgery 01/17wound clinic every 2 weeksdress ing changes by [facility] (will be starting 02/21, done in office by [employer] MACHINE OPERATOR today) Thyroid nodule 702919510 E04.1 incidental finding, discussed, thyroid ultrasound ordered for follow-up Cellulitis of right lower limb [id number] 7072631 L03.115 concerning areas of warmth and redness today, having significan t (recent-on set) swelling, likely related to immobility had been on Augmentin at 02/04-02/14wi ll resume Augmentin x14 days currentlyo n furosemide (recently added) and Eliquis (long-term )wrap legs or use compressio n stockings consistent lykeep legs elevated Type 2 rupinder betes mellitus 07018653 E11.42 A1c 6.5% in 11/2021, on glimepirid e 1 mg dailyneeds podiatry care re-establi shed Parkinson's disease 4904 9000 G20 [facility]on Sinemet, still has significan t tremor, recommend he discuss med changes with them Post-disch arge follow-up 082680179 Z09 notes reviewed, as summarized in HPI [id number] AMRIT COREAS MD [address] [id number] 4 03/23/2022 13:22:10 03/23/2022 13:59:24 Osteomyelitis of left foot [id number] M86.9 s/p amputation of left toe 12/28, adequately healed Cellulitis of right lower limb [id number] L03.115 developed into diabetic wound/non- healing ulcer, despite extended courses of Augmentinf ollowing with wound clinic weekly, currently on doxycyclin camilo furosemide and Eliquiswea r diabetic stockings and keep legs elevated Thyroid nodule [id number] E04.1 incidental finding - he missed his scheduled thyroid ultrasound on 03/18, will discuss re-schedul ing this next visit (in 6 weeks), as he is feeling overwhelme d currently Type 2 rupinder betes mellitus [id number] E11.42 A1c 6.5% in 11/2021, on glimepirid e 1 mg dailyhas podiatry appt 03/31 and [facility] - reminded him to have A1c re-checked at that visit, as he prefers to do his lab follow-up through the [facility] Parkinson's disease 4904 9000 G20 [facility] with [facility] n Sinemet, still has significan t tremor, recommend he discuss med changes with them (particula rly resuming primidone, now that he is no longer on Coumadin) [id number] AMRIT COREAS MD [address] [id number] 05/11/2022 15:02:56 05/11/2022 15:32:04 Osteomyelitis of left foot [id number] M86.9 s/p amputation of left toe 12/28, adequately healedhad been following with wound clinic weekly, but completed this morning, wounds healedon furosemide and Eliquis long-termw ears diabetic compressio n stockings and keeps legs elevatedha s foot care through [place] [facility] and [facility] nurse Thyroid nodule [id number] E04.1 incidental finding - he missed his scheduled thyroid ultrasound on 03/18, will re-order/r e-schedule now Type 2 rupinder betes mellitus 28052202 E11.42 A1c 6.0% in 03/2022, on glimepirid e 1 mg dailyfollo ws with podiatry through the [place], will be getting diabetic fitted shoes in 05/2022 Parkinson's disease 4904 9000 G20 follows with [place] for [place], on Sinemet [id number] Suma Ledesma [address] [id number] 4 06/06/2022 13:28:07 06/06/2022 13:53:18 Suspected coronavirus infection [id number] Z03.818 r/o COVID-19 [id number] AMRIT COREAS MD [address] [id number] 4 09/14/2022 13:20:37 09/14/2022 13:52:20 Thyroid nodule [id number] E04.1 benign on FNA 05/2022, plan TSH yearly (has labs done through the [place], will review set from 09/2022 next visit) Type 2 rupinder betes mellitus 52876960 E11.42 A1c 6.0% in 03/2022, planned for repeat 09/2022, does not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
--- NOTE | 2024-08-07 12:57 | MHC.OFFVIS ---
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 He started noticing mild left hand tremors about 20 years ago and progressively worsened. He was initially diagnosed with benign tremors and later diagnosed with parkinsons about 3-4 years ago. Now the tremors have progressed and he has some tremors in Right hand. He had VALERY scans twice and he is not sure of results He is carbidopa/ levodopa 25/100 and it helps his hand tremors. Memory- good Sleep-frequent awakenings, nocturia, denies any active dreams Mood-mild depression . He is a [employer] - served in [place] . No exposure to agent orange. speech- normal , occasional drooling and occasional swallowing issues. He has diffiuclty writing , eating , dressing , needs help using showers. He also has spinal stenosis. He uses a walker and is unsteady. He has poor balance. No hallucinations. [facility] Medical History (Updated 08/07/24 @ 13:23 by Carissa Yeager MD) Parkinson's disease without dyskinesia Unspecified atrial fibrillation Type 2 diabetes mellitus without complications Tremor, unspecified Spinal stenosis, site unspecified Presence of cardiac pacemaker Personal history of malignant melanoma of skin Parkinson's disease with dyskinesia, without mention of fluctuations Lymphedema, not elsewhere classified Essential (primary) hypertension Basal cell carcinoma of skin, unspecified Physical Exam Vital Signs: Last Vital Signs Pulse 74 08/07/24 12:59 BP 118/70 08/07/24 12:59 Pulse Ox 97 08/07/24 12:59 Oxygen Delivery Method Room Air 08/07/24 12:59 BMI result Body Mass Index 32.3 Const General: cooperative, healthy appearing and comfortable Nutritional Appearance: average body habitus Orientation/consciousness: patient oriented x3 Eyes Pupils: Equal, round and reactive pupils present Neuro Other: Mild left UE rest tremors intermittent FFM slower L>R Tone- mild increased Mild decreased facial expression and blink. 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 wound - f/u wound clinic General: patient oriented x3, tone normal, moves all extremities and Unable to assess gait Cranial nerves: Yes Equal, round and reactive pupils present, Yes Bilaterally intact EOM present, Yes Normal facial strength present, Yes Midline tongue present, Yes Symmetric palate elevation present and Yes Ability to bilaterally elevate shoulders present Cognition (Neuro): normal cognition Gait exam (Neuro): Unable to assess gait Motor exam (neuro): 5/5 motor strength present throughout Deep tendon reflexes (DTR's): Right triceps reflex intensity grade: 1+, Left triceps reflex intensity grade: 1+, Rt Biceps (C5, C6): 1+, Left biceps reflex intensity grade: 1+, Right brachioradialis reflex intensity grade: 1+, Left brachioradialis reflex intensity grade: 1+, Right patellar reflex intensity grade: 1+ and Left patellar reflex intensity grade: 1+ Coordination: [id number] test normal Assessment & Plan Assessment & Plan (1) Parkinson's disease without dyskinesia: Code(s): G20.A1 - Parkinson's disease without dyskinesia, without mention of fluctuations Category: Medical Qualifiers: Fluctuating manifestations: without fluctuating manifestations Qualified Code(s): G20.A1 - Parkinson's disease without dyskinesia, without mention of fluctuations Plan Continue carbidopa/levodopa 25/100 tid [facility] Coding Level of Care Code New Pt Level 4 (48831) Complex EM visit Add On G2211 Diagnoses Parkinson's disease without dyskinesia or fluctuating manifestations G20.A1 Fluctuating manifestations: without fluctuating manifestations
[2024-08-07 12:59] VITALS: BP 118/70; PULSE 74; O2SAT 97; BMI 32.3
== END 2024-08-07 13:37 | disposition home or self-care (01) ==
PROVIDERS: PCP Family Medicine; Visit Provider Psychiatry & Neurology Neurology
DX: G20.A1 Parkinson's disease without dyskinesia, without mention of fluctuations (principal)
CPT/HCPCS: 99204; G2211

== ENCOUNTER → 2024-08-07 12:13 | Outpatient (BNVA) | payer OTHER, SELFPAY | PROVIDERS: Visit Provider Psychiatry & Neurology Neurology | DX: G20.A1 Parkinson's disease without dyskinesia, without mention of fluctuations (principal) | CPT/HCPCS: 99202 ==

== ENCOUNTER 2025-05-21 10:47 | Outpatient (AMB) | payer OTHER, SELFPAY ==
[2025-05-21 11:08] VITALS: BP 110/72; PULSE 96; O2SAT 97
--- NOTE | 2025-05-21 11:08 | MHC.OFFVIS ---
Vital Signs 05/21/25 11:08 Height 5 ft 7 in BP 110/72 Blood Pressure Location Lt brachial Position Sitting Pulse 96 Pulse Source Pulse Oximeter Pulse Oximetry (%) 97 Oxygen Delivery Method Room Air Intake Visit Reasons: follow up Intake Note: Patient presents for follow up Parkinson's disease without dyskinesia. requested VALERY scanned 11/16/22 Gang [employer]er Required: No Accompanied by: Neighbor Allergies No Known Allergies Allergy (Verified 05/21/25 11:08) Medication List - Last Reconciled 05/21/25 by Carissa Yeager MD alogliptin 25 mg PO DAILY apixaban 5 mg PO BID carbidopa-levodopa 25-100 mg 1 tab PO QID fluticasone furoate 50 mcg/actuation inhalation furosemide 20 mg PO DAILY glimepiride 1 mg PO DAILY lidocaine 5% (DermacinRx Lidocan) 1 patch topical DAILY metoprolol tartrate 50 mg PO BID HPI Comments Details: 84y/o Right handed male comes for follow up of parkinsons disease. VALERY from 2022 -showed decreased uptake.He lives alone and misses his middle of the day medication.He is here with his neighbor who drives him He has [employer] services 10 hrs to help with showers and cleaning. His neighbor takes him shopping He has 3 children in [place] and they visit often No recent falls. History from initial visit-07/2024 He started noticing mild left hand tremors about 20 years ago and progressively worsened. He was initially diagnosed with benign tremors and later diagnosed with parkinsons about 3-4 years ago. Now the tremors have progressed and he has some tremors in Right hand. He had VALERY scans twice and he is not sure of results He is carbidopa/ levodopa 25/100 and it helps his hand tremors. Memory- good Sleep-frequent awakenings, nocturia, denies any active dreams Mood-mild depression . He is a [employer] - served in [place] . No exposure to agent orange. speech- normal , occasional drooling and occasional swallowing issues. He has difficulty writing , eating , dressing , needs help using showers. He also has spinal stenosis. He uses a walker and is unsteady. He has poor balance. No hallucinations. [facility] Medical History Parkinson's disease without dyskinesia Unspecified atrial fibrillation Type 2 diabetes mellitus without complications Tremor, unspecified Spinal stenosis, site unspecified Presence of cardiac pacemaker Personal history of malignant melanoma of skin Parkinson's disease with dyskinesia, without mention of fluctuations Lymphedema, not elsewhere classified Essential (primary) hypertension Basal cell carcinoma of skin, unspecified Physical Exam Vital Signs: Last Vital Signs Pulse 96 05/21/25 11:08 BP 110/72 05/21/25 11:08 Pulse Ox 97 05/21/25 11:08 Oxygen Delivery Method Room Air 05/21/25 11:08 Assessment & Plan Assessment & Plan (1) Parkinson's disease without dyskinesia: Code(s): G20.A1 - Parkinson's disease without dyskinesia, without mention of fluctuations Category: Medical Plan Increase carbidopa/levodopa 25/100 qid VALERY scan report from [place] for review Home PT Orders: Referrals [facility] Referral G20.A1 - Parkinson's disease without dyskinesia, without mention of fluctuations Medications: Changed From carbidopa-levodopa 25-100 mg 1 tab PO TID To carbidopa-levodopa 25-100 mg 7am 12 noon 5 pm 10pm 1 tab PO QID 120 tabs 6RF Coding Level of Care Code Est Pt Level 4 (58597) Complex EM visit Add On G2211 Diagnoses Parkinson's disease without dyskinesia G20.A1
--- OUTSIDE RECORDS SUMMARY | 2025-05-21 13:55 | XMS_ITS | Clinical Summary ---
Author Organization [facility] Address [address] [place] [address] Care Team Providers Care Traffic Control Technician Name Role Phone Clayton Best MD Primary Care Provider [phone] Clayton Best MD Unavailable Medications Aspirin ([facility] Aspirin Low Dose) 81 MG EC tablet Take 2 daily 0 0 Active HYDROcodone-Dave taminophen (NORCO) 7.5-325 MG per tablet TAKE 1 TABLET EVERY 4 TO 6 HOURS NEEDED prn pain. 30 0 0 Active Vitamin D3 (VITAMIN D-3) 25 MCG (1000 UT) capsule TAKE 4 CAPSULE Daily 90 0 1 Active Metoprolol Succinate (TOPROL-XL) 100 MG 24 hr tablet TAKE ONE TABLET BY MOUTH TWICE DAILY 180 1 2 Active Atorvastatin Calcium (LIPITOR) 20 MG tablet TAKE ONE TABLET BY MOUTH ONCE DAILY 90 3 3 Active Fish Oil (FISH OIL) 1200 MG Cap Take one tablet daily 0 3 Active Magnesium 200 MG Tab with zinc 400mg daily 0 3 Active Potassium Gluconate 80 MG Tab 99mg 2 daily 0 3 Active Multiple Vitamin (Multivitamins) capsule TAKE 1 CAPSULE DAILY. capsule 0 3 Active Hypertonic Nasal Wash (Sinus Rinse Kit) Pack USE DIRECTED. 0 4 Active Ascorbic Acid (Vitamin C) 100 MG tablet TAKE 1 TABLET DAILY DIRECTED. 0 6 Active Warfarin Sodium (COUMADIN) 5 MG tablet as directed by cardiology 0 6 Active Digoxin (LANOXIN) 0.25 MG/ML injection USE DIRECTED. 0 7 Active metFORMIN ER (GLUCOPHAGE-XR) 500 MG 24 hr tablet TAKE 2 TABLET Daily 180 tablet 3 7 Active Active Problems Problem Noted Date Diagnosed Date Type 2 diabetes mellitus 05/13/2016 Overview (09/03/2023): Transitioned From: Impaired fasting glucose Unsteady gait 11/06/2015 Parkinson's disease 08/28/2014 Overview (09/03/2023): Transitioned From: Tremor Allergic rhinitis 12/27/2013 Atrial fibrillation 02/25/2013 Overview (09/03/2023): Transitioned From: Atrial flutter Cervical radiculopathy 11/01/2011 Cataract 11/01/2011 Hyperactivity of bladder 01/15/2010 Never a smoker 01/15/2010 Lactase deficiency 01/14/2010 Benign prostatic hypertrophy 01/14/2010 Overview (11/06/2023): October 2023 IMO Osteoarthritis 01/14/2010 Overview (09/03/2023): Description: dystrophic Hypertension 01/14/2010 Depression 01/14/2010 Overview (09/03/2023): Transitioned From: Dysthymic disorder Hyperlipidemia 01/14/2010 Immunizations Immunization Administration Dates Next Due COVID-19, mRNA (Moderna Pre Fall 2022) Monovalent, 100 mcg/0.5 ml or 50 mcg/0.25 ml dose 06/08/2021 COVID-19, mRNA (Moderna Pre Fall 2022) bivalent, 25 mcg/0.25 ml (6 months - 11 years) or 50 mcg/0.5 ml (12+ years) 05/18/2022 COVID-19, mRNA (Moderna Spik evax) Seasonal, 50 mcg/0.5 mL (12+) 06/20/2023 Covid-19, Vector-nr (Fabio), 0.5 Ml 10/28/2020 Covid-19, mRNA (Pfizer Pre F all 2022) Monovalent, 30 mcg/0.3 ml adam-sucrose (12+) 12/29/2021 Influenza (SEASONAL) - 05/08/2015,05/24/2013,07/2008 Influenza,high-dose, Quadrivalent 05/03/2023,02/2021,05/19/2020 Influenza,injectable,MDCK, Prsrv Fr,Quad 017 Influenza,injectable,quad,Prsrv Fr 04/29/2019, Influenza,split(incl.purifie d surface antigen) 06/28/2007 PCV-13 05/30/2017 PPV23 (Pneumovax) 10/03/2014,06/14/2013,05/08/20 Td (adult), adsorbed 09/01/2003 Tdap 12/27/2013 Zoster (Zostavax) 11/28/2016 influenza,seasonal,trivalent ,PF (Fluzone, Fluarix, Flulaval) 05/13/2016,05/19/2014 Family History Medical History Relation Name Comments Cancer - Lung Father Malignant Meso thelioma Of The Lung : Father Arthritis/Joint disorder Mother Rhe umatoid Arthritis : Mother Cancer (?Type) Mother Cancer : Moth er Stroke Mother Stroke Syndrome : Mother Relation Name Status Comments Father Mother Social History Tobacco Use Types Packs/Day Years Used Date Smoking Tobacco: Never Assessed Comments:Smoking Status:No c urrent tobacco use Sex and Gender Information Value Date Recorded Sex Assigned at Not on file Legal Sex Male 2:15 PM EDT Gender Identity Not on file Sexual Orientation Not on file Last Filed Vital Signs Vital Sign Reading Time Taken Comments Blood Pressure 108/74 05/26/2017 1:36 PM EDT Pulse 90 05/26/2017 1:36 PM EDT Temperature 36.8 C (98.2 F) 05/26/2017 1:36 PM EDT Respiratory Rate 16 05/26/2017 1:36 PM EDT Oxygen Saturation 99% 05/26/2017 1:36 PM EDT Inhaled Oxygen Concentration - - Weight 102 kg (223 lb 15.8 oz) 05/26/2017 1:36 P M EDT Height 170.2 cm (5' 7 ) 05/26/2017 1:36 PM EDT Body Mass Index 35.08 05/26/2017 1:36 PM EDT Plan of Treatment Health Maintenance Due Date Last Done Comments Zoster (Shingrix) (2 of 3) 01/23/2017 11/28/2016 RSV (1 - 1-dose 75+ series) 2017 GFR 05/23/2018 05/23/2017, 10/30, 05/10/2016, Additional history exists Microalbumin 05/23/2018 05/23/2017, 10/30, 05/10/2016, Additional history exists Eye/Retina Exam 08/18/2018 08/18/2016 LDL Cholesterol 08/21/2018 08/21/2017, 05/01, 11/23/2016, Additional history exists DTaP/Tdap/Td (2 - Td or Tdap) 12/28/2023 12/27/2013, 09/01/2003 COVID-19 Vaccine ( season) 2025 06/20/2023, 05/18/2022, 12/29/2021, Additional history exists Influenza (#1) 2025 05/03/2023, 090 02/2021, 05/19/2020, Additional history exists Zoster (Zostavax) Discontinued 11/28/2016 Pneumococcal 50+ years Completed 7, 10/03/2014, 06/14/2013, Additional history exists HPV Vaccine (No Doses Required) Completed Hep A Aged Out No longer eligi ble based on patient's age to complete this topic Hep B Aged Out No longer eligi ble based on patient's age to complete this topic Hib Aged Out No longer eligi ble based on patient's age to complete this topic Meningococcal ACWY Aged Out No longer eligible based on patient's age to complete this topic Procedures Procedure Name Priority Date/Time Associated Diagnosis Comments LIPID PANEL, PLASMA Routine 08/21/2017 2 :05 PM EST MICROALBUMIN / CREATININE URINE RATIO Routine 05/23/2017 10:23 AM EDT COMPREHENSIVE METABOLIC PANEL Routine 05/23/2017 10:19 AM EDT COMPREHENSIVE EYE EXAM Routine 7 3:36 PM EST from Last 3 Months or Most Recently Relevant to Health Maintenance Results * LIPID PANEL, PLASMA (08/21/2017 2:05 PM EST) LDL Cholesterol 105 PHCT CONVERSIONS 08/21/2017 2:05 PM EST us Clayton Best MD LABORATORY Final Result PHCT CONVERSIONS * MICROALBUMIN / CREATININE URINE RATIO (05/23/2017 10:23 AM EDT) Albumin/Creati nine (Urine) 60.0 PHCT CONVERSIONS 05/23/2017 10:2 3 AM EDT us Clayton Best MD LABORATORY Final Result Performing Organization Address City/[facility]/ZIP Co de Phone Number PHCT CONVERSIONS * COMPREHENSIVE METABOLIC PANEL (05/23/2017 10:19 AM EDT) Glucose 164 PHCT CONVERSIONS Potassium 4.4 PHCT CONVERSIONS Creatinine 1.1 PHCT CONVERSIONS AST (SGOT) 20 PHCT CONVERSIONS ALT (SGPT) 15 PHCT CONVERSIONS 05/23/2017 10:1 9 AM EDT us Clayton Best MD LABORATORY Final Result Performing Organization Address City/[facility]/ZIP Co de Phone Number PHCT CONVERSIONS * COMPREHENSIVE EYE EXAM (08/18/2016 3:36 PM EST) DILATED RETINAL EXAM Without Retinopathy PHCT CONVERSIONS 08/18/2016 3:36 PM EST us Clayton Best MD MINOR PROCEDURE Final Result PHCT CONVERSIONS from Last 3 Months or Most Recently Relevant to Health Maintenance Care Teams Traffic Control Technician Relationship Specialty Start Date End Date Clayton Best MD [facility] [address] [place] [id number] PCP - General 03/06/23 Clayton Best MD [facility] [address] [place] [address] PCP - Backup PCP Family Medicine 08/30/23
--- OUTSIDE RECORDS SUMMARY | 2025-05-21 13:55 | XMS_ITS | Data Portability ---
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 Previously on Primidone. Uses a walker at baseline, but uses a wheelchair when attending medical appointments here. AMRIT COREAS MD [address] [facility], [place], [phone], [place] [employer] 05/11/2022 15:54:54 09/14/2022 text/html ROS as noted in the HPI Presents for planned 4-month follow-up. Last seen 05/11. Accompanied by his neighbor, who also helped drive him here today. -Osteomyelitis of left foot: admitted to [facility] 11[place]20[place], prolonged hospital and rehab stay and wound care. He lives completely alone at home (in [place]) and does not drive. Relies on a [...] healed. Got his custom diabetic shoes from [place] on 06/19. Town nurse from [place] sees him monthly, they do foot/nail care [place]. Has appt with Dr. Goddard to establish community podiatry care as of 12/2022.-diabetes type 2: diagnosed ~2017, was prediabetic for several years prior to that, had been screened regularly. Last A1c 6.0% at the [place] 03/2022, improved from 6.5% in hospital 11/2021. Had a [place] PCP appt 04/15 with labs, planned for repeat in 6 months (09/2022). Does not take ACEi due to angioedema requiring intubation.Does not check home blood sugars.-thyroid nodules: incidentally noted on imaging to have multinodular goiter, had benign FNA 05/2022-tremor/park insonism: follows with [place] neurology, seen last week. Neurologist ordered him some OT-adaptive heavy utensils, [facility]. Tremor is worsening and debilitating, struggling to [...] 7 grandchildren when he's feeling down. AMRIT COERAS MD [address] [place] [address], [phone], [facility] - [employer] 09/14/2022 13:56:33
--- OUTSIDE RECORDS SUMMARY | 2025-05-21 13:56 | XMS_ITS | Encounter Summary ---
Author Organization [facility] Address [address] [place] [address] [place] [address] Phone Care Team Providers Care Painter Railroad Car Name Role Phone Ivania Smallwood DO Primary Care Provider [phone] Barbra Coreas MD Primary Care Provi eliel Encounter Details Date Type Department Care Team (Late st Contact Info) Description 10/14/2020 Procedure Pass [facility] Cardiovascular And Interventional Radiology [address] [place] [address] Social History Tobacco Use Types Packs/Day Years Used Date Smoking Tobacco: Never Smokeless Tobacco: Never Alcohol Use Standard Drinks/Week Comments Not Currently 0 (1 standard drink = 0.6 oz pur e alcohol) Sex and Gender Information Value Date Recorded Sex Assigned at Not on file Legal Sex Male 10:10 PM EDT Gender Identity Not on file Sexual Orientation Not on file documented as of this encounter Plan of Treatment Not on file documented as of this encounter Visit Diagnoses Not on filedocumented in this encounter Care Teams Painter Railroad Car Relationship Specialty Start Date End Date Ivania Smallwood DO [address] [place] [address] PCP - General Internal Medicine 01/23/18 11/09/22 Barbra Coreas MD [address] [place] [phone] PCP - General Internal Medicine 11/10/22 documented as of this encounter Additional Source Comments The information contained in this document represents components of the legal health record. It is not the complete legal health record.[facility]
--- OUTSIDE RECORDS SUMMARY | 2025-05-21 13:56 | XMS_ITS | Clinical Summary ---
Author Organization [facility] Address [address] [place] [address] Care Team Providers Care Welder Tech Name Role Phone Unavailable Primary Care Provider Unavailabl e Social History Tobacco Use Types Packs/Day Years Used Date Smoking Tobacco: Never Assessed Sex and Gender Information Value Date Recorded Sex Assigned at Not on file Legal Sex Male 12:11 AM EST Gender Identity Not on file Sexual Orientation Not on file Plan of Treatment Not on file
--- OUTSIDE RECORDS SUMMARY | 2025-05-21 13:56 | XMS_ITS | Encounter Summary ---
Author Organization [facility] Address [address] [facility] [address] [place] [address] Phone Care Team Providers Care Leveling Machine Operator Name Role Phone SmallwoodIvania Primary Care Provider [phone] Barbra Coreas MD Primary Care Provi eliel Encounter Details Date Type Department Care Team (Late st Contact Info) Description 12/16/2020 Procedure Pass Non-Invasive Cardiology [address] [place] [address] Social History Tobacco Use Types Packs/Day Years [...] on file documented as of this encounter Functional Status * Calculated C-SSRS Risk Score (Lifetime/Recent) Answer Date of Assessment Author No Risk Indicated 12/16/2020 12:00 PM EDT Gm Casillas RN * [place] Suicide Severity Rating Scale (Screener/Recent Self-Report) Question Answer Date of Assessment Author 1. Wish to be (Past 1 Month) No 12:00 PM EDT Gm Calloway RN 2. Non-Specific Active Suici jose Thoughts (Past 1 Month) No 12/16/2020 12:00 PM EDT Chuy Calloway RN 6. Suicidal Behavior (Lifetime) No 12:00 PM EDT Gm Calloway RN documented as of this encounter Plan of Treatment Not on file documented as of this encounter Visit Diagnoses Not on filedocumented in this encounter Care Teams Leveling Machine Operator Relationship Specialty Start Date End Date Ivania Smallwood DO [address] [place] [address] PCP - General Internal Medicine 01/23/18 11/09/22 Barbra Coreas MD [address] [place] [phone] PCP - General Internal Medicine 11/10/22 documented as of this encounter Additional Source Comments The information contained in this document represents components of the legal health record. It is not the complete legal health record.[facility]
--- OUTSIDE RECORDS SUMMARY | 2025-05-21 13:56 | XMS_ITS | Encounter Summary ---
Author Organization [facility] Address [address] [facility] [address] [place] [address] Phone Care Team Providers Care Curbing Stonecutter Name Role Phone ClIvania Primary Care Provider [phone] Barbra Coreas MD Primary Care Provi eliel Encounter Details Date Type Department Care Team (Late st Contact Info) Description 12/16/2020 Procedure Pass [facility] Cardiovascular And Interventional Radiology [address] [place] [address] Social History Tobacco Use Types Packs/Day Years [...] 12:00 PM EDT Gm Casillas RN * [place] Suicide Severity Rating Scale (Screener/Recent Self-Report) Question Answer Date of Assessment Author 1. Wish to be (Past 1 Month) No 12:00 PM EDT Gm Calloway RN 2. Non-Specific Active Suici jose Thoughts (Past 1 Month) No 12/16/2020 12:00 PM EDT Chuy Calloway RN 6. Suicidal Behavior (Lifetime) No 12:00 PM EDT [place], Gm, RN documented as of this encounter Plan of Treatment Not on file documented as of this encounter Visit Diagnoses Not on filedocumented in this encounter Care Teams Curbing Stonecutter Relationship Specialty Start Date End Date Ivania Smallwood DO [address] [place] [phone] PCP - General Internal Medicine 01/23/18 11/09/22 Barbra Coreas MD [address] [place] [phone] PCP - General Internal Medicine 11/10/22 documented as of this encounter Additional Source Comments The information contained in this document represents components of the legal health record. It is not the complete legal health record.[facility]
--- OUTSIDE RECORDS SUMMARY | 2025-05-21 13:56 | XMS_ITS | Encounter Summary ---
Author Organization [facility] Address [address] [place] [address] [place] [address] Phone Care Team Providers Care Group Activities Aide Name Role Phone Ivania Smallwood DO Primary Care Provider [phone] Barbra Coreas MD Primary Care Provi eliel Encounter Details Date Type Department Care Team (Late st Contact Info) Description 11/11/2020 Procedure Pass [facility] Cardiovascular And Interventional Radiology [address] [place] [address] Social History Tobacco Use Types Packs/Day Years [...] on filedocumented in this encounter Care Teams Group Activities Aide Relationship Specialty Start Date End Date Ivania Smallwood DO [address] [place] [phone] PCP - General Internal Medicine 01/23/18 11/09/22 Barbra Coreas MD [address] [place] [phone] PCP - General Internal Medicine 11/10/22 documented as of this encounter Additional Source Comments The information contained in this document represents components of the legal health record. It is not the complete legal health record.[facility]
--- OUTSIDE RECORDS SUMMARY | 2025-05-21 13:56 | XMS_ITS | Clinical Summary ---
Author Organization [facility] Address [address] [facility] [address] [place] [address] Phone Care Team Providers Care Freight Adjuster Name Role Phone Barbra Coreas MD Primary Care Provi eliel Allergies Active Allergy Reactions Criticality Noted Date Comments Lisinopril Anaphylaxis,Angioedema High 03/08/2022 Medications therapeutic multivitamin tablet Take 1 tablet by mouth daily. Active cholecalciferol (CHOLECALCIFEROL) 25 MCG (1,000 unit) tablet Take 1,000 Units by mouth daily. Active digoxin (LANOXIN) 250 mcg (0.25 mg) tablet Take 250 mcg by mouth daily. Active metoprolol tartrate (LOPRESSOR) 25 MG tablet Take 1 tablet (25 mg total) by mouth 2 (two) times a day. 28 tablet 12/17/2020 Active gabapentin (NEURONTIN) 100 MG capsule 100 mg. 09/05/2022 Active glimepiride (AMARYL) 1 MG tablet 1.5 mg. 07/19/2022 Active apixaban (ELIQUIS) 5 mg tablet Take 1 tablet by mouth 2 (two) times a day. 08/10/2022 Active Active Problems Problem Noted Date Diagnosed Date Charcot arthropathy of midfoot 09/16/2022 Encounter for preprocedure s creening laboratory testing for COVID-19 12/16/2020 Status post placement of cardiac pacemaker 12/16 Assessment & Plan (12/16/2020 2:31 PM EDT): The patient is afebrile and hemodynamically stable postoperatively. On exam, rhythm is currently regular. He has mild soreness of the pacemaker implant site. 1. Observation on telemetry overnight 2. Remove pressure dressing before discharge tomorrow, keep wound dry for 7 days, remove Tegaderm in 2 days and allow Steri-Strips to fall off naturally 3. Keep arm in sling for 3 to 4 weeks, do not lift arm above shoulder level, no repetitive motion or heavy lifting for 3 to 4 weeks 4. Vancomycin 15 mg/kg x 1 tomorrow morning for skin infection prophylaxis 5. Repeat chest x-ray tomorrow morning 6. Device interrogation tomorrow morning 7. Resume cardiac, diabetic prudent diet 8. Acetaminophen as needed for pain 9. Follow-up CBC and metabolic panel 10. PT evaluation prior to discharge Persistent atrial fibrillation 12/16/2020 Assessment & Plan (12/16/2020 2:25 PM EDT): Currently rate controlled. Continue metoprolol and digoxin as prescribed. Continue Coumadin and monitor INR, per cardiology Coumadin may be resumed this evening. Hypertensive disorder Assessment & Plan (12/16/2020 2:28 PM EDT): Blood pressure is controlled. We will continue to monitor on furosemide and metoprolol as prescribed. He is euvolemic on exam. Check renal function. Diabetes mellitus Assessment & Plan (12/16/2020 2:30 PM EDT): Patient is on glipizide daily and this will be continued. Encourage diabetic prudent diet. Monitor fgnis-is-csjj's with insulin sliding scale coverage; if sugars are trending high, we will add basal insulin. Family History Medical History Relation Comments Mesothelioma Father Rheumatoid arthritis Mother Relation Status Comments Father Mother Social History Tobacco Use Types Packs/Day Years Used Date Smoking Tobacco: Never Smokeless Tobacco: Never Alcohol Use Standard Drinks/Week Comments Not Currently 0 (1 standard drink = 0.6 oz pur e alcohol) Education Answer Date Recorded Are you interested in more education? Not on zuleika e 11/25/2022 Are you concerned about learning? Not on file 11/25/2022 No 11/25/2022 No 11/25/2022 Digital Access Answer Date Recorded No 12/26/2022 No 12/26/2022 No 12/26/2022 Reliable internet access at home? Not on file 12/26/2022 Device with a working camera? Not on file Sex and Gender Information Value Date Recorded Sex Assigned at Not on file Legal Sex Male 10:10 PM EDT Gender Identity Not on file Sexual Orientation Not on file Last Filed Vital Signs Vital Sign Reading Time Taken Comments Blood Pressure 112/60 11/09/2022 1:44 PM EDT Pulse 100 12/17/2020 3:23 PM EDT Temperature 37 C (98.6 F) 12/17/2020 3:23 PM EDT Respiratory Rate 16 12/17/2020 3:23 PM EDT Oxygen Saturation 97% 12/17/2020 3:23 PM EDT Inhaled Oxygen Concentration - - Weight 93 kg (205 lb) 12/16/2020 12:10 PM EDT Height 170.2 cm (5' 7 ) 12/16/2020 12:10 PM EDT Body Mass Index 32.11 12/16/2020 12:10 PM EDT Plan of Treatment Health Maintenance Due Date Last Done Comments BLOOD PRESSURE 1942 DEPRESSION SCREENING 1954 RSV VACCINE (1 - 1-dose 75+ series) 2017 HEMOGLOBIN A1C 07/25/2018 01/23/2018 LIPID PANEL 01/23/2019 01/23/2018 DIABETIC EYE EXAM 12/16/2020 URINE MICROALBUMIN/CREATININE RATIO 12/16/2020 01/23/2018 CREATININE LEVEL 12/17/2021 12/17/2020, 01/23/2018 POTASSIUM LEVEL 12/17/2021 12/17/2020, 01/23/2018 PNEUMOCOCCAL VACCINES (50+ years) (2 of 2 - PCV) 11/24/2022 11/24/2021, 05/30/2017, 10/03/2014, Additional history exists INFLUENZA VACCINE (#1) 2025 2, 04/07/2021, 05/19/2020, Additional history exists COVID-19 VACCINE ( - season) 2025 12/29/2021, 06/08/2021, 10/28/2020 Adult Td,Tdap Booster 07/28/2031 07/28/2021 , 12/27/2013, 09/01/2003 ZOSTER VACCINES Completed 04/15/2022, 10/30, 11/28/2016 HEPATITIS A VACCINES Aged Out No long er eligible based on patient's age to complete this topic HIB VACCINES Aged Out No longer eligi ble based on patient's age to complete this topic MENINGOCOCCAL VACCINES (ACWY) Aged Out No longer eligible based on patient's age to complete this topic MENINGOCOCCAL VACCINES (B) Aged Out N o longer eligible based on patient's age to complete this topic Medical Devices Implanted Type Area Jewelry Sales Representative Device Identifier Shelf Expiration Date Model / Serial / Lot Envelope Tyrx Absorbable Antibacterial Med Sterile - [id number] Implanted:Qty: 1 on 12/16/2020 by Velvet Hamm MD at [facility] Collagen Left: Chest Wall [employer] [id number] 08/05/2021 [id number] / / [id number] Lead Pacing Solia 53cm Steroid Eluting Ra Is 1 Bipolar Promri Lei - [id number] Implanted:Qty: 1 on 12/16/2020 by Velvet Hamm MD at [facility] Lead Right: Ventricle [employer] [id number] 11/27/2022 [id number] / [id number] / Lead Pacing Solia 45cm Steroid Eluting Ra Is 1 Bipolar Promri Lei - [id number] Implanted:Qty: 1 on 12/16/2020 by Velvet Hamm MD at [facility] Lead Right: Atrium [employer] [id number] 04/29/2022 [id number] / [id number] / Pacemaker Edora Dual Chamber Miguel Ibarra W/Automri Cls And Hm - [id number] Implanted:Qty: 1 on 12/16/2020 by Velvet Hamm MD at [facility] Pacemaker Left: Chest Wall [employer] [id number] 03/30/2022 [id number] / [id number] / Prosthetic Joint Prosthetic Joint Bilateral: Hip Prosthetic Joint Prosthetic Joint Left: Shoulder Procedures Procedure Name Priority Date/Time Associated Diagnosis Comments BASIC METABOLIC PANEL Routine 12/17/2020 5:19 AM EDT MICROALBUMIN/CREATI NINE RATIO, RANDOM URINE Routine 01/23/2018 12:03 PM EDT Routine general medical examination at a health care facility HEMOGLOBIN A1C Routine 01/23/2018 12:03 PM EDT Routine general medical examination at a [facility] care facility LIPID PANEL Routine 01/23/2018 12:03 PM EDT Routine general medical examination at a [facility] care facility from Last 3 Months or Most Recently Relevant to Health Maintenance Results * (ABNORMAL) Basic metabolic panel (12/17/2020 5:19 AM EDT) SODIUM 142 133 - 146 mmol/L [facility] CHLORIDE 107 96 - 108 mmol/L [facility] POTASSIUM 4.2 3.3 - 5.1 mmol/L [facility] Comment:Specimen slightly he molyzed, result may be falsely elevated. CO2 28 21 - 35 mmol/L [facility] BUN 22(H) 6 - 19 mg/dL [facility] CREATININE 1.00 0.5 - 1.5 mg/dL [facility] GLUCOSE 126(H) 70 - 99 mg/dL [facility] CALCIUM 9.0 8.4 - 10.3 mg/dL [facility] EGFR 72 >59 mL/min/1.7 3m2 [facility] Comment:Estimated glomerular filtration rate calculated using the CKD-EPI equation. ANION GAP 11 10 - 20 mmol/L [facility] Blood 12/17/2020 5:19 AM EDT 12/17/2020 6:12 AM EDT us Nirmal Crowder MD LAB BLOOD ORDERABLES Fin al Result [facility] [address] [place] [address] * Microalbumin/creatinine ratio, random urine (01/23/2018 12:03 PM EDT) URINE MICROALBUMIN 1.5 0 - 2.3 mg/dL [facility] URINE CREATININE 167 mg/dL DRY PRESS OPERATOR [facility] MICROALB/CRE RATIO 9.0 0 - 20 mg/g Cre [facility] Urine (Urine) 01/23/2018 12: 03 PM EDT 01/23/2018 12:12 PM EDT us Ivania Smallwood DO URINE ORDERABLES Final Result Performing Organization Address [facility] Co de Phone Number [address] [address] * (ABNORMAL) Hemoglobin A1c (01/23/2018 12:03 PM EDT) HEMOGLOBIN A1C 7.0(H) 4.3 - 5.8 % [facility] Blood 01/23/2018 12:0 3 PM EDT 01/23/2018 12:13 PM EDT us Ivania Smallwood DO LAB BLOOD ORDERABLES Final Res ult Performing Organization Address City/[facility]/ZIP Co de Phone Number [address] [address] * (ABNORMAL) Lipid panel (01/23/2018 12:03 PM EDT) HDL 39 mg/dL [facility] Comment: Interpretation: Risk Level Males Decreased >45 mg/dL Average 40-45 mg/dL Increased <40 mg/dL CHOLESTEROL 168 0 - 240 mg/dL [facility] TRIGLYCERIDES 207(H) 30 - 160 mg/dL [facility] LDL 88 50 - 129 mg/dL [facility] Comment: LDL levels in terms of risk for coronary heart disease: <100 mg/dL: Optimal 100-129 mg/dL: Near or above optimal 130-159 mg/dL: Borderline high 160-189 mg/dL: High >190 mg/dL: Very High CARDIAC RISK RATIO 4.3 3.4 - 5.0 [facility] Blood 01/23/2018 12:0 3 PM EDT 01/23/2018 12:13 PM EDT us Ivania A Smallwood DO LAB BLOOD ORDERABLES Final Res ult [facility] Organization Address City/State/ZIP Co de Phone Number [facility] [address] [place] [address] from Last 3 Months or Most Recently Relevant to Health Maintenance Insurance [facility] MEDICARE ENHANCE SUPPLEMENT MEDICARE PART A & B [facility] MEDICARE ENHANCE SUPPLEMENT MEDICARE PART A & B [facility] MEDICARE ENHANCE SUPPLEMENT MEDICARE PART A & B Member Subscriber Plan / Payer ( fective 2004-Present) Name:Erich Godwin Member ID:[id number] Relation to Subscriber:Self Name:Erich Godwin Subscriber ID:[id number] Payer ID:[id number] Group ID:Not on file Type:Medicare Address: [a]list games [address] [facility] MEDICARE ENHANCE SUPPLEMENT MEDICARE PART A & B [facility] MEDICARE ENHANCE SUPPLEMENT MEDICARE PART A & B [facility] MEDICARE ENHANCE SUPPLEMENT MEDICARE PART A & B [facility] MEDICARE ENHANCE SUPPLEMENT MEDICARE PART A & B [facility] MEDICARE ENHANCE SUPPLEMENT MEDICARE PART A & B [facility] MEDICARE ENHANCE SUPPLEMENT MEDICARE PART A & B Advance Directives For more information, please contact: [phone] (9AM - 5PM [facility], Monday-Monday) Documents on File Type Date Recorded Patient Tar Man Expl anation Healthcare Proxy 01/04/2021 6:09 PM * Full Code (Latest Code Status on File) Date Activated Date Inactivated Comments 12/16/2020 12:20 PM Question Answer Comments Code Status Confirmed With: Patient Healthcare Agents on File Name Relationship Healthcare Agent Relationship Communication Maria A Zacarias Daughter .Primary Health Care Agent (Proxy form on file) Lacho Godwin Son Alternate Health care Agent (Proxy form on file) Care Teams Freight Adjuster Relationship Specialty Start Date End Date Barbra Coreas MD [address] [place] [phone] PCP - General Internal Medicine 11/10/22 Additional Source Comments The information contained in this document represents components of the legal health record. It is not the complete legal health record.[facility]
--- OUTSIDE RECORDS SUMMARY | 2025-05-21 13:56 | XMS_ITS | Encounter Summary ---
Author Organization [facility] Address [address] [facility] [address] [place] [id number] Phone Care Team Providers Care Process Description Writer Name Role Phone Ivania Smallwood DO Primary Care Provider [phone] Barbra Coreas MD Primary Care Provi eliel Encounter Details Date Type Department Care Team (Latest Contact Info) Description 01/23/2018 Transcribe Orders [facility] [address] [place] [address] Ivania Smallwood DO [address] [place] [address] Routine general medical examination at a health care facility (Primary Dx) Social History Tobacco Use Types Packs/Day Years Used Date Smoking Tobacco: Never Assessed Sex and Gender Information Value Date Recorded Sex Assigned at Not on file Legal Sex Male 10:10 PM EDT Gender Identity Not on file Sexual Orientation Not on file documented as of this encounter Plan of Treatment Not on file documented as of this encounter Results * Microalbumin/creatinine ratio, random urine (01/23/2018 12:03 PM EDT) URINE MICROALBUMIN 1.5 0 - 2.3 mg/dL [facility] URINE CREATININE 167 mg/dL [facility] MICROALB/CRE RATIO 9.0 0 - 20 mg/g Cre [facility] Urine (Urine) 01/23/2018 12: 03 PM EDT 01/23/2018 12:12 PM EDT us Ivania Sparks Cl ALFONSO URINE ORDERABLES Final Result Performing Organization Address [facility] Co de Phone Number [address] [address] * (ABNORMAL) Folate (01/23/2018 12:03 PM EDT) FOLIC ACID >20.0(H) 4.2 - 19.9 ng/mL [facility] Blood 01/23/2018 12:0 3 PM EDT 01/23/2018 12:13 PM EDT us Ivania Sparks Cl ALFONSO LAB BLOOD ORDERABLES Final Res ult Performing Organization Address [facility] de Phone Number [address] [address] * Hepatitis B surface antibody (01/23/2018 12:03 PM EDT) HBV SURFACE ANTIBODY Negative [facility] Comment: Unvaccinated: Negative Vaccinated: Positive Blood 01/23/2018 12:0 3 PM EDT 01/23/2018 12:13 PM EDT us Ivania Sparks Cl ALFONSO LAB BLOOD ORDERABLES Final Res ult Performing Organization Address [facility] Co de Phone Number [address] [address] * Hepatitis B core antibody, IgM (01/23/2018 12:03 PM EDT) HBC IGM AB, S Negative Negative [place] Blood 01/23/2018 12:0 3 PM EDT 01/23/2018 12:13 PM EDT us Ivania A Cl ALFONSO LAB BLOOD ORDERABLES Final Res ult Performing Organization Address [facility]/ZIP Co de Phone Number [facility] [address] [place] [address] * 25-OH vitamin D (01/23/2018 12:03 PM EDT) 25 OH VIT D (TOTAL) 42 30 - 1,000 ng/mL [facility] Blood 01/23/2018 12:0 3 PM EDT 01/23/2018 12:13 PM EDT Ivania A Cl DO LAB BLOOD ORDERABLES Final Res ult Performing Organization Address [facility] Co de Phone Number [address] [address] * TSH (01/23/2018 12:03 PM EDT) Pathologist [facility] TSH 2.53 0.27 - 4.20 uIU/mL [facility] Blood 01/23/2018 12:0 3 PM EDT 01/23/2018 12:13 PM EDT Ivania A Cl ALFONSO LAB BLOOD ORDERABLES Final Res ult Performing Organization Address [facility] de Phone Number [address] [address] * Vitamin B12 (01/23/2018 12:03 PM EDT) [facility] VITAMIN B12 411 232 - 1,245 pg/mL [facility] Comment:The reference range had been changed on November 10, 2017 from 243 - 894pg/mL to 232 - 1245 pg/mL. Blood 01/23/2018 12:0 3 PM EDT 01/23/2018 12:13 PM EDT Ivania Smallwood DO LAB BLOOD ORDERABLES Final Res ult Performing Organization Address [facility] de Phone Number [address] [address] * (ABNORMAL) Lipid panel (01/23/2018 12:03 PM EDT) Pathologist [facility] HDL 39 mg/dL [facility] Comment: Interpretation: Risk Level Males Decreased >45 mg/dL Average 40-45 mg/dL Increased <40 mg/dL CHOLESTEROL 168 0 - 240 mg/dL [facility] TRIGLYCERIDES 207(H) 30 - 160 mg/dL [facility] LDL 88 50 - 129 mg/dL [facility] Comment: LDL levels in terms of risk for coronary heart disease: <100 mg/dL: Optimal 100-129 mg/dL: Near or above optimal 130-159 mg/dL: Borderline high 160-189 mg/dL: High >190 mg/dL: Very High CARDIAC RISK RATIO 4.3 3.4 - 5.0 C [facility] Blood 01/23/2018 12:0 3 PM EDT 01/23/2018 12:13 PM EDT us Ivania Smallwood LAB BLOOD ORDERABLES Final Res ult Performing Organization Address City/[facility]/ZIP Co de Phone Number [address] [address] * (ABNORMAL) Hemoglobin A1c (01/23/2018 12:03 PM EDT) HEMOGLOBIN A1C 7.0(H) 4.3 - 5.8 % [facility] Blood 01/23/2018 12:0 3 PM EDT 01/23/2018 12:13 PM EDT us Ivania Smallwood LAB BLOOD ORDERABLES Final Res ult [address] [address] * (ABNORMAL) Comprehensive metabolic panel (01/23/2018 12:03 PM EDT) SODIUM 140 133 - 146 mmol/L [facility] POTASSIUM 4.4 3.3 - 5.1 mmol/L [facility] CHLORIDE 100 96 - 108 mmol/L [facility] CO2 28 21 - 35 mmol/L [facility] BUN 19 6 - 19 mg/dL [facility] CREATININE 1.10 0.5 - 1.5 mg/dL [facility] GLUCOSE 149(H) 70 - 99 mg/dL [facility] ALBUMIN 4.0 3.9 - 4.8 g/dL [facility] TOTAL PROTEIN 7.1 6.5 - 8.0 g/dL [facility] CALCIUM 9.6 8.4 - 10.3 mg/dL [facility] ALKALINE PHOSPHATASE 93 39 - 117 U/L [facility] TOTAL BILIRUBIN 0.7 0.0 - 1.2 mg/dL [facility] AST 21 0 - 37 U/L [facility] ALT 24 0 - 40 U/L [facility] GLOBULIN 3.1 1 - 4.8 g/dL [facility] EGFR 65 >59 mL/min/1.7 3m2 [facility] Comment:If patient is black, multiply result by 1.159. Estimated glomerular filtration rate calculated using the CKD-EPI equation. ANION GAP 16 10 - 20 mmol/L [facility] Blood 01/23/2018 12:0 3 PM EDT 01/23/2018 12:13 PM EDT us Ivania Smallwood DO LAB BLOOD ORDERABLES Final Res ult [facility] [address] [place] [address] * (ABNORMAL) CBC (01/23/2018 12:03 PM EDT) WBC 7.30 3.40 - 11.20 K/uL [facility] RBC 5.69(H) 4.50 - 5.50 M/uL [facility] HGB 16.6 13.0 - 17.0 g/dL [facility] HCT 49.3 40.0 - 51.0 % [facility] PLT 224 130 - 400 K/uL [facility] MCV 86.6 79.0 - 98.0 fL [facility] MCH 29.2 27.0 - 34.8 pg [facility] MCHC 33.7 31.5 - 36.0 g/dL [facility] RDW 13.2 10.8 - 14.6 % [facility] MPV 10.3 9.4 - 12.4 fl [facility] NRBC 0.00 /100 WBCs [facility] ABSOLUTE NRBC 0.00 K/uL [facility] Blood 01/23/2018 12:0 3 PM EDT 01/23/2018 12:13 PM EDT us Ivania Smallwood DO LAB BLOOD ORDERABLES Final Res ult [facility] [address] [place] [address] documented in this encounter Visit Diagnoses Diagnosis Routine general medical examination at a health care facility- Primary documented in this encounter Care Teams Process Description Writer Relationship Specialty Start Date End Date Ivania Smallwood DO [address] [place] [id number] PCP - General Internal Medicine 01/23/18 11/09/22 Barbra Coreas MD [address] [place] [phone] PCP - General Internal Medicine 11/10/22 documented as of this encounter Additional Source Comments The information contained in this document represents components of the legal health record. It is not the complete legal health record.[facility]
--- OUTSIDE RECORDS SUMMARY | 2025-05-21 13:56 | XMS_ITS | Clinical Summary ---
Author Organization [facility] Address [address] [place] [address] Care Team Providers Care Tool Trouble Shooter Name Role Phone Clayton Best MD Primary Care Provider [phone] Allergies No known active allergies Medications Medication Sig Dispensed Refills Start Date End Date Status lisinopril (PRINIVIL,ZESTRIL) 5 MG tablet Take 5 mg by mouth daily. 0 Active aspirin EC 81 MG tablet Take 81 mg by mouth daily. 0 Active metoprolol (TOPROL-XL) 50 MG 24 hr tablet Take 50 mg by mouth daily. 0 Active cholecalciferol (VITAMIN D3) 1000 UNITS tablet Take 4,000 Units by mouth daily. 0 Active vitamin C (ASCORBIC ACID) 500 MG tablet Take 1,000 mg by mouth daily. 0 Active Zinc 50 MG CAPS Take 1 capsule by mouth daily. 0 Active carbidopa-levodopa (SINEMET) 25-100 MG per tabletIndications:Par kinson's Disease Take 1 tablet by mouth 3 (three) times a day. 0 Active acetaminophen 650 MG TABS Take 650 mg by mouth every 4 (four) hours as needed. 30 tablet 0 10/02/2014 Active oxyCODONE-acetaminoph en (PERCOCET) 5-325 MG per tablet Take 1 tablet by mouth every 4 (four) hours as needed for pain. 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 Parkinson's disease 09/08/2014 Impaired fasting glucose 09/08/2014 Cellulitis 09/07/2014 Paroxysmal A-fib 09/07/2014 HTN (hypertension) 09/07/2014 Immunizations Name Administration Dates Next Due Pneumococcal Polysaccharide PPSV23 10/03/2014 Social History Tobacco Use Types Packs/Day Years Used Date Smoking Tobacco: Never Alcohol Use Standard Drinks/Week Comments Yes 0 (1 standard drink = 0.6 oz pur e alcohol) rare Sex and Gender Information Value Date Recorded Sex Assigned at Not on file Gender Identity Not on file Sexual Orientation Not on file Last Filed Vital Signs Vital Sign Reading Time Taken Comments Blood Pressure 117/68 10/03/2014 8:55 AM EST Pulse 80 10/03/2014 8:55 AM EST Temperature 36.9 C (98.4 F) 10/03/2014 8:55 AM EST Respiratory Rate 13 10/03/2014 8:55 AM EST Oxygen Saturation 99% 10/03/2014 8:55 AM EST Inhaled Oxygen Concentration - - Weight 91.7 kg (202 lb 1.6 oz) 10/02/2014 7:00 A M EST bed Height 172.7 cm (5' 8 ) 09/30/2014 5:30 PM EST Body Mass Index 30.73 09/30/2014 5:30 PM EST Plan of Treatment Not on file Advance Directives For more information, please contact: [phone] Latest Code Status on File Code Status Date Activated Date Inactivated Comments Full Code 09/30/2014 12:30 PM 10/03/2014 7:12 PM This c ode status was ascertained in the following way: discussion with patient. Code Status History Code Status Date Activated Date Inactivated Comments Full Code 09/07/2014 1:29 AM 09/11/2014 10:26 PM This code status was ascertained in the following way: discussion with patient. Care Teams Tool Trouble Shooter Relationship Specialty Start Date End Date Clayton Best MD [address] [place] [phone] PCP - General Family Medicine 09/29/14
== END 2025-05-21 11:54 | disposition home or self-care (01) ==
LOC: HO.HSMS 10:47
PROVIDERS: PCP Family Medicine; Visit Provider Psychiatry & Neurology Neurology
DX: G20.A1 Parkinson's disease without dyskinesia, without mention of fluctuations (principal)
CPT/HCPCS: 99214; G2211

== ENCOUNTER → 2025-05-21 10:47 | Outpatient (BNVA) | payer OTHER, SELFPAY | PROVIDERS: PCP Family Medicine; Visit Provider Psychiatry & Neurology Neurology | DX: G20.A1 Parkinson's disease without dyskinesia, without mention of fluctuations (principal) | CPT/HCPCS: 99212 ==